=== PATIENT | female | born 1945 | race Caucasian/White ===

== ENCOUNTER 2019-12-20 08:25 | Inpatient (IN) | payer MEDICARE, SELFPAY ==
[2019-12-20] VITALS (11 sets, daily range): BP systolic 99–147; BP diastolic 58–89; PULSE 69–82; RESP 12–20; TEMP 36.3–36.8; O2SAT 93–97; BMI 41.2
--- NOTE | ~2019-12-20 | CT_ITS ---
EXAMINATION: CT abdomen pelvis w con DATE: 12/20/2019 09:21 INDICATION: Abdominal pain, nausea, vomiting, diarrhea TECHNIQUE: Computed tomography (CT) of the abdomen and pelvis was performed with 100 cc Omnipaque 350 intravenous contrast. Automated exposure control and iterative reconstruction technique were employe d. Exam dose: 1265.78 mGy-cm total exam DLP. COMPARISON: None. FINDINGS: There is cardiomegaly. Right atrial and right ventricular pacemaker leads are noted. No per icardial effusion. There is bilateral lower lobe atelectasis, primarily involving the right lower lobe. No pericardial or pleural effusion. There is a small sliding hiatal hernia. There is fluid filling the distal esophageal lumen., Presumab ly due to reflux. There is a very large [place] ventral abdominal wall hernia containing stomach, all of the small esvin wel and cecum, ascending colon, transverse colon, descending colon. There are jose of the ventral abdominal wall. Cholelithiasis. Borderline thickening of the gallbladder wall. No pericholecystic fluid or fat strand ing. No hepatic, splenic, pancreatic space-occupying mass lesion. No bile duct or pancreatic duct dilatati on. No splenomegaly. Approximately 1.4 cm right adrenal mass; statistically this is most likely an adrenal adenoma if ther e is no known primary malignancy. 7 mm probable left renal cyst. 9 mm probable left renal cyst. Bilateral renal atrophy and mild scarring. There is extensive calcification of the abdominal aorta, calcification at the origins of the renal ar teries, bilateral iliac and femoral artery calcifications. No abdominal aortic aneurysm. No intraperitoneal or retroperitoneal or pelvic mass lesion or adenopathy or ascites. Status post hysterectomy. The urinary bladder is relatively evacuated, unremarkable. There is a prominent amount fecal material in the rectosigmoid area in particular, rectosigmoid stool ball measuring up to approximately 6.6 x 7 cm. There are numerous diverticula of the colon; no CT evidence of diverticulitis. No bowel obstruction, bowel wall thickening, pneumatosis or intraperitoneal free air is detected. There is severe degenerative changes of the thoracic and lumbar spine, including diffuse idiopathic s keletal hyperostosis of the lower thoracic spine, severe degenerative disc disease at T12-L1, L1-L2, L2-3. There is mild retrolisthesis at L1-2 and L2-3 and minimal retrolisthesis at L3-4 where there is moderately prominent degenerative disc disease. There is very prominent degenerative change at the apophyseal joints particularly in the lower lumbar and lumbosacral area with associated grade 1 anterolisthesis at L4-5. There is moderately prominent degenerative disc disease at L4-5 and L5-S1. Diffuse osteopenia is noted otherwise. IMPRESSION: Cardiomegaly. Dual lead pacemaker. Bilateral lower lobe atelectasis, primarily on the right Small sliding hiatal hernia, probable reflux Large ventral abdominal wall hernia containing stomach, all of the small bowel, cecum, ascending, tra nsverse and descending colon Cholelithiasis 1.4 cm right adrenal mass, likely an adenoma if there is no known primary malignancy Left renal cysts Bilateral renal atrophy and mild scarring Status post hysterectomy Fecal material in the rectum and colon Diverticulosis of the colon; no CT evidence of diverticulitis Extensive degenerative changes of the thoracic and lumbar spine Reviewed, dictated and finalized at [facility]. Reviewed, dictated and finalized at location [facility].
--- NOTE | ~2019-12-20 | XR_ITS ---
XR chest 2V DATE: 12/20/2019 09:10 INDICATION: Hypoxemia. Abdominal pain and vomiting. TECHNIQUE: AP and lateral views COMPARISON: None FINDINGS: Heart size is within normal limits considering magnification associated with AP projection. There is a left-sided dual-lead pacemaker with leads overlying right atrium and right ventricle. The re is aortic unfolding. No hilar or mediastinal enlargement is evident. No pulmonary infiltrate or consolidation, pleural effusion or pulmonary vascular congestion or pneumo thorax. Degenerative spurring of the thoracic spine. Bilateral rotator cuff atrophy. Anterior abdominal wall jose. IMPRESSION: Left-sided dual-lead pacemaker device No active cardiopulmonary disease Reviewed, dictated and finalized at location [facility].
--- NOTE | ~2019-12-20 | XR_ITS ---
XR chest 1V portable DATE: 12/26/2019 21:05 INDICATION: Basically volar basketball internal jugular venous catheter placement TECHNIQUE: Portable AP chest on 12/26/2019 at D 58 hours COMPARISON: 12/21/2019 portable AP chest at 1442 hours FINDINGS: Left-sided dual-lead pacemaker device with leads overlying right atrium and right ventricle . Heart size. Prominent mitral annulus calcification. Aortic calcification. There are infiltrates and/atelectasis in both lower lung zones and minimal pleural effusions. Right internal jugular central venous catheter tip overlying right brachiocephalic vein/superior vena cava junction. No pneumothorax. Status post anterior C6-7 cervical spine fusion Bilateral chronic rotator cuff atrophy. Osteophytic change at the glenohumeral joints. Degenerative changes of the thoracic spine. IMPRESSION: Bilateral lower lung infiltrate and/atelectasis, increased since 12/21/2019 Reviewed, dictated and finalized at location [facility]. IMPRESSION: Bilateral lower lung infiltrate and/atelectasis, increased since 03/2020
--- NOTE | ~2019-12-20 | XR_ITS ---
EXAMINATION: XR abdomen NG/feed tube insert DATE: 12/22/2019 02:42 INDICATION: Nasogastric tube placement TECHNIQUE: A supine view of the abdomen and lower chest was obtained for evaluation of feeding tube placement. COMPARISON: CT dated 12/20/2019 FINDINGS: Nasogastric tube tip in proximal side port in the body of the stomach. Surgical clips in the left low er quadrant. Small amount of gas in the stomach and a couple loops of bowel in the lower abdomen. Jc cified nodule in the left lung and calcified left hilar lymph nodes consistent with old granulomatous disease. Cardiomegaly. Dense mitral annular calcification. Dual lead pacemaker seen with leads proje cting over the expected locations of the right atrium and right ventricle. IMPRESSION: 1. Nasogastric tube tip in the stomach. 2. Nonspecific nonobstructive bowel gas pattern. 3. Cardiomegaly. Reviewed, dictated and finalized at location [facility].
--- NOTE | ~2019-12-20 | US_ITS ---
EXAMINATION: US venous doppler [facility] DATE: 12/21/2019 09:14 INDICATION: Lower limb edema. TECHNIQUE: Grayscale ultrasound images without and with compression and Doppler ultrasound images of the bilateral lower extremity veins were obtained. COMPARISON: None. FINDINGS: The visualized portions of right common femoral vein, profunda (deep) femoral vein, femoral vein, pop liteal vein, peroneal veins, posterior tibial veins, and greater saphenous vein outflow are patent. The visualized portions of left common femoral vein, profunda femoral vein, femoral vein, popliteal v ein, peroneal veins, posterior tibial veins, and greater saphenous vein outflow are patent. IMPRESSION: 1. No deep venous thrombosis. Reviewed, dictated and finalized at location [facility].
--- NOTE | ~2019-12-20 | XR_ITS ---
EXAMINATION: XR chest port-a-cath/central DATE: 12/21/2019 14:44 INDICATION: Central line placement. TECHNIQUE: A single frontal view of the chest was obtained. COMPARISON: Chest 2 views 12/20/2019, CT abdomen and pelvis 12/20/2019 FINDINGS: There is mild atelectasis at right lung base. No pleural effusion or pneumothorax. Cardiome peña is noted. There is a left chest wall pacer with leads in the right atrium and right ventricle. T he nasogastric tube tip is beyond the inferior margin of the radiograph, but at least to the stomach. A right internal jugular central venous catheter is seen with tip in the superior vena cava. There a re changes of anterior fusion procedure in cervical spine. IMPRESSION: 1. Central line tip in superior vena cava. 2. Mild atelectasis at right lung base. 3. Cardiomegaly. Reviewed, dictated and finalized at location [facility].
--- NOTE | 2019-12-20 08:19 | ED.GENADULT ---
HPI - General Adult General Chief complaint: Nausea/Vomiting/Diarrhea Stated complaint: ABD PAIN/VOMITING Source: patient and EMS Mode of arrival: EMS Limitations: no limitations History of Present Illness HPI narrative: Patient is a 74-year-old female with a history of hypertension, hx of anemia taking Fe, pacemaker who presents for evaluation of abdominal pain, emesis. Patient states she has had 4-day history of intermittently cramping, then severe abdominal pain located throughout her abdomen. She denies back pain or chest pain. She reports numerous episodes dark emesis, she denies any blood present. No coffee-ground emesis. Patient denies any shortness of breath or cough. No fever or chills. Patient states her care is typically at [facility]. Patient states she had a normal bowel movement yesterday. She denies history of bowel obstruction. Per EMS, pt oxygen saturations were 86% on room air, pt not on home oxygen. She denies any respiratory symptoms or recent sick contacts. Pt does have home health care that helps patient as she is non ambulatory, however pt is not sure why she does not walk. Pt denies history of a CVA. Related Data Allergies Allergy/AdvReac Type Severity Reaction Status Date / Time No Known Allergies Allergy Verified 12/20/19 08:29 Review of Systems Review of Systems: Narrative: CONSTITUTIONAL: Denies fever, chills, or sweats. ENT: Denies rhinorrhea, congestion, sore throat, or otalgia. CARDIOVASCULAR: Denies chest pain, palpitations, or edema. RESPIRATORY: Denies cough or dyspnea. GASTROINTESTINAL: Reports abdominal pain, nausea and vomiting, denies diarrhea GENITOURINARY: Denies dysuria or hematuria. SKIN: Denies rash or itching. MUSCULOSKELETAL: Denies back pain, joint pain, or myalgia. NEUROLOGIC: Denies headache, numbness, or weakness. [facility] Past Medical History Medical History (Updated 12/20/19 @ 10:48 by Megan Singer MD) Anemia Hypertension Leg weakness, bilateral Pacemaker Surgical History Surgical History (Updated 12/20/19 @ 08:36 by Megan Singer MD) H/O hernia repair History of appendectomy Family History Family History (Updated 12/20/19 @ 13:29 by Melissa Freed RN) Father Congestive heart failure Sibling Diabetes mellitus Mother Breast cancer Social History Social History Smoking status: Never smoker Alcohol intake: never Substance use: never Spiritual care concerns: No Exam Narrative: Exam Narrative: GENERAL: Awake, alert, conversant HEAD: Normocephalic, atraumatic. EYES: PERRLA and EOMI. ENT: Nares clear, no rhinorrhea or epistaxis. Mucous membranes moist. NECK: Supple. CHEST: No respiratory distress, breathing even and non labored, oxygen saturation 88% on room air HEART: Regular rate, sinus rhythm ABDOMEN: Obese abdomen, non distended, tender throughout abdomen, mild tenderness, no rebound, no rigidity or guarding Rectal: Guaic positive stool, black stool EXTREMITIES: Normal range of motion. No edema. SKIN: Warm, dry, no rash. NEURO:No focal deficits. Alert and oriented x3 Course Vital Signs Vital signs: Vital Signs Temperature 36.8 C 12/20/19 08:23 Pulse Rate 80 12/20/19 08:23 Respiratory Rate 20 12/20/19 08:23 Blood Pressure 99/58 L 12/20/19 08:23 Pulse Oximetry 93 12/20/19 08:23 Temperature 36.3 C L 12/20/19 14:25 Pulse Rate 76 12/20/19 14:25 Respiratory Rate 14 12/20/19 14:25 Blood Pressure 147/87 H 12/20/19 14:25 Pulse Oximetry 97 12/20/19 14:25 Medical Decision Making MDM Narrative Medical decision making narrative: Patient presented for evaluation of nausea and vomiting. At the time of initial assessment, patient is hypoxemic, did require nasal cannula oxygenation with improvement in saturations back to 95%. Patient's ABG after oxygen does show increased oxygen, but she is also hypercarbic. Patient is not altered, no respiratory distress. Patient does appear dehydrat
--- NOTE | 2019-12-20 08:29 | ECG_ITS ---
Measurements Intervals [place] Rate: 66 P: MI: 0 QRS: -23 QRSD: 89 T: -72 QT: 406 QTc: 428 Interpretive Statements ATRIAL FIBRILLATION BORDERLINE R WAVE PROGRESSION, ANTERIOR LEADS BORDERLINE ST-T WAVE ABNORMALITY- DIFFUSE LEADS BASELINE ARTIFACT- I, II, III, AVR, AVL, AVF ABNORMAL ECG Electronically Signed On 12-20-2019 9:01:36 CDT by Matias Stiles D.O.
[2019-12-20] MEDS: SODIUM CHLORIDE 0.9% IV 1,000 ML 999 ML IV CONT (08:37)
[2019-12-20] MEDS: ONDANSETRON INJ 4 MG/2 ML VIAL IV PUSH ×3 (08:37→23:52)
[2019-12-20] MEDS: MORPHINE SULFATE 2 MG/ML INJ IV PUSH (08:37)
[2019-12-20 08:58] LABS: Hematocrit 48.8 % (37.0-47.0); Hemoglobin 16.1 g/dL (12.0-15.0); Mean Corpuscular Hemoglobin 27.8 pg (26-34); Mean Corpuscular Volume 84.3 fl (80-100); Mean Platelet Volume 10.7 fl (7.4-10.4); Platelet Count Result 308 k/mm3 (150-375); Red Blood Count 5.79 M/mm3 (4.2-5.4); Red Cell Distribution Width 16.3 % (11.5-14.5); White Blood Count 23.4 K/mm3 (4.5-10.0)
[2019-12-20 09:05] LABS: Add Urine Microscopic? YES; Appearance Urine Clear (Clear); Bacteria Urine Trace /hpf; Bilirubin Urine Negative (Negative); Blood Urine 1+ (Negative); Color Urine Yellow (Yellow); Glucose Urine UA Negative (Negative); Hyaline Casts Urine 50+ /lpf; Ketones Urine Negative (Negative); Leukocyte Esterase Ur Negative LEU/UL (Negative); Mucus Urine Heavy /lpf; Nitrate Urine Negative (Negative); Protein Urine 3+ mg/dL (Negative); Specific Grav Ur 1.025 (1.001-1.035)
[2019-12-20 09:10] LABS: Alanine Aminotransferase 19 U/L (4-35); Albumin Level 3.9 g/dL (3.5-5.1); Alkaline Phosphatase 73 U/L (38-126); Anion Gap 9.99999 mmol/L (8-16); Aspartate Amino Transferase 37 U/L (14-36); Bilirubin,Total 0.9 mg/dL (0.2-1.3); Blood Urea Nitrogen 47 mg/dL (7-17); Calcium 9.3 mg/dL (8.4-10.2); Carbon Dioxide > 40 mmol/L (22-30); Chloride 91 mmol/L (98-107); Estimated CRCL calculation 49 ml/min; Estimated Glomerular Filt Rate 55; Glucose 174 mg/dL (65-105); Lipase 203 U/L (23-300); Potassium 3.6 mmol/L (3.4-5.0); Sodium 141 mmol/L (137-145)
[2019-12-20 09:15] LABS: Estimated CRCL calculation 41 ml/min; Estimated Glomerular Filt Rate 44
[2019-12-20 09:28] LABS: Lymphocytes Absolute Manual 2.57 K/mm3 (1.1-4.5); Lymphocytes Percent Manual 11 % (18-44); Monocytes Absolute Manual 0.93 K/mm3 (0.1-0.90); Monocytes Percent Manual 4 % (3-9); Neutrophils Percent Manual 85 % (46-73); Total Cells Counted 100
[2019-12-20 09:29] LABS: Base Excess ABG 15.6 mEq/l (+/-2.0); Carboxyhemoglobin 1.2 % THb (0-2.0); Fractional Inspired Oxygen 24 %; HCO3 ABG 42.1 mEq/l (22.0-26.0); Methemoglobin ABG 0.1 %THb (0-1.5); Oxygen Content ABG 18.8 %vol (16.0-22.0); Oxygen Saturation ABG 98.1 % (95.0-100.0); Oxyhemoglobin 96.3 % THb (90.0-100.0); PCO2 ABG 59.1 mmHg (35.0-45.0); PO2 ABG 109.3 mmHg (80.0-100.0); PO2 FiO2 Ratio Arterial Blood 4.55 %; Reduced Hemoglobin 2.4 %THb (0-5.0); Total Hemoglobin 13.8 g/dL (12.0-18.0); pH ABG 7.471 (7.350-7.450)
[2019-12-20 09:29] LABS: Platelet Estimate Adequate (Adequate)
[2019-12-20 09:32] LABS: Device NASAL CANNULA; Modified Allen's Test Pass; Site Drawn RIGHT RADIAL
--- NOTE | 2019-12-20 10:07 | PC.NURSE ---
Daughter of patient's phone number: [phone]
--- NOTE | 2019-12-20 10:59 | PC.NURSE ---
Phelbotomy called for patient due to difficult blood draw.
--- NOTE | 2019-12-20 11:30 | PC.NURSE ---
Phlebotomy attempted multiple times without success other than one set of blood cultures. software development coordinator and EDP made aware.
[2019-12-20 11:51] LABS: INR 1.1; Prothrombin Time 13.7 Seconds (11.1-14.7)
[2019-12-20 11:52] LABS: Partial Thromboplastin Time 28.6 SECONDS (22.3-36.8)
[2019-12-20 11:55] LABS: D Dimer 0.99 ug/mL (<0.48)
[2019-12-20 12:20] LABS: Lactic Acid Reflex 1.9 mmol/L (0.7-2.1)
--- NOTE | 2019-12-20 12:55 | ADMGEN ---
This patient, Ashley Croft, was admitted to Medical Room 341-01. Patient/family oriented to hospital policies and general routines including ID bracelet, bed and alarms, visiting hours, pain management, procedures, bathroom and other care routines, personal items, smoking policy, room service/diet, and visiting hours. Valuables list has been completed. Information on how to activate the Rapid Response Team has been discussed. Patient/Family are encouraged to report perceived risks to care and to ask questions if they do not understand what they are told or what they should do.
[2019-12-20] MEDS: SODIUM CHLORIDE 0.9% IV 1,000 ML 125 ML IV CONT ×2 (13:10→22:09)
[2019-12-20 13:59] LABS: Troponin I 0.065 ng/mL (0.000-0.034)
[2019-12-20 16:01] LABS: Gastric Negative Control Negative; Gastric Positive Control Positive; Occult Blood Gastric Fluid Positive; pH Gastric Fluid 4 (1-8)
--- NOTE | 2019-12-20 16:15 | PM.IMHP ---
H&P: HPI History of Present Illness Date/Time: 12/20/19 16:15 Chief complaint: Vomiting and epigastric pain. Narrative: Ashley Croft is a chronically debilitated, morbidly obese 74-year-old female who presented to the emergency department earlier today via EMS from home for evaluation of epigastric pain and vomiting. She gets most of her care at [facility], but recently moved to the area and thus she was brought here for evaluation. She is not a very good historian, but from what I can gather she does have a history of breast cancer, chronic anemia, hypertension, and she also has a permanent pacemaker in place. She suffers from severe peripheral neuropathy and it sounds like she was hospitalized at [facility] in May 2019 with foot wounds. She [facility] to a [facility] for [facility], and moved over to [place] to lived with her daughter. She is now living in her own apartment and has home health come in for about 11 hours a day. She is nonambulatory and transfers with the use of a Carlos. In any regard, on Friday evening she began having epigastric discomfort and nausea. Initially she thought perhaps she had food poisoning however her daughter and son-in-law did not have similar symptoms despite eating the same food. She continues to have epigastric discomfort that she has a difficult time describing, and has been experiencing belching, and also reports numerous episodes of dark emesis, occasionally described as coffee-ground emesis per her nurse here at the hospital. She has a difficult time describing her epigastric discomfort, but she states that it has been constant since the outset. She tells me that she has never had GERD, and does not describe any significant burning in area. She is on iron and thus her stools are always dark. She suffers from constipation, and has not had a bowel movement for at least a day or so. She has a very large ventral hernia that has been present for years, and there is no plans to repair that. She denies ever having pain in the region of the hernia. No history of gallbladder disease and for when questioned, it does not sound as though she has had any right upper quadrant discomfort related to food. Review of Systems Review of Systems: Narrative: Twelve systems were reviewed with pertinent positives and negatives as per HPI. She denies fever, chills, and sweats. She has felt a bit lightheaded today. No recent cold or flu symptoms. She denies cough and shortness of breath. She has no history of COPD. She has never been on oxygen at home. She denies sleep apnea and further denies orthopnea and PND. She has chronic, mild lower extremity edema which is unchanged. She denies chest pain and pleuritic pain. She has peripheral neuropathy in her feet, but denies having history of diabetes or spinal stenosis. [facility] Past Medical History Medical History (Updated 12/20/19 @ 21:39 by Josefina Kerr PA-C) Cancer of right breast (~2017) Status post lumpectomy, chemotherapy, and radiation. Hypertension Iron deficiency anemia alf current use of anticoagulant Patient believe she has a history of blood clot, she is uncertain if she has a history of atrial fibrillation. Morbid obesity Surgical History Surgical History (Updated 12/20/19 @ 17:18 by Leeroy Guzmán MD) History of fusion of cervical spine C5-C6 fusion after fracture. History of hernia repair History of lumpectomy of right breast For breast cancer. History of permanent cardiac pacemaker placement History of total hysterectomy with bilateral salpingo-oophorectomy (BSO) Status post debridement Left heel wound debridement. Family History Family History Father Congestive heart failure Heart disease Sibling Diabetes mellitus Mother Breast cancer Sibling Heart disease Social History Social History Social History: The patient is origin
[2019-12-20 16:31] LABS: Hematocrit 46.4 % (37.0-47.0)
[2019-12-20 16:56] LABS: Troponin I 0.074 ng/mL (0.000-0.034)
--- NOTE | 2019-12-20 17:14 | WPDGICN ---
Assessment and Plan Assessment and plan (1) Hematemesis: Code(s): K92.0 - Hematemesis Status: Acute Assessment and Plan: Patient presented with upper GI bleeding. Coffee-ground emesis. Plan is to evaluate more thoroughly with an EGD. We will maintain her on Protonix in the antrum. Continue monitor hemoglobin by follow-up CBC in the morning. (2) History of permanent cardiac pacemaker placement: Code(s): Z95.0 - Presence of cardiac pacemaker Status: Acute (3) Morbid obesity: Code(s): E66.01 - Morbid (severe) obesity due to excess calories Status: Acute (4) Constipation: Code(s): K59.00 - Constipation, unspecified Status: Acute Assessment and Plan: Patient appears to have constipation based on results of CT scan with excess stool in the rectal vault. We will maintain on laxatives as needed during hospital stay. GI Consult Note Consult date/time: 12/20/19 17:14 HPI: Ashley Croft is a 74 year old female seen in evaluation at the request of the hospitalist service. Patient presented to the emergency room with complaints of a 3 to four-day history of nausea vomiting. Coffee-ground emesis is described. Fact in patient was noted have dried blood about her mouth. She apparently has had vague abdominal discomfort during this interval of time. She denies constipation however CT scan reveals large amount of stool in the rectal wall. Patient denies any blood in her bowel habits. She denies any prior history of ulcer disease. Past medical history is significant for obesity. She has a history of a hysterectomy and ventral hernia which is not been repaired for many years. Review of Systems Review of Systems: All systems reviewed & are unremarkable except as noted in HPI and below PMFSH Past Medical History Medical History Cancer of right breast Status post lumpectomy, chemotherapy, and radiation. Hypertension Iron deficiency anemia Morbid obesity Surgical History Surgical History History of fusion of cervical spine C5-C6 fusion after fracture. History of hernia repair History of lumpectomy of right breast For breast cancer. History of permanent cardiac pacemaker placement History of total hysterectomy with bilateral salpingo-oophorectomy (BSO) Status post debridement Left heel wound debridement. Family History Family History Father Congestive heart failure Heart disease Sibling Diabetes mellitus Mother Breast cancer Sibling Heart disease Social History Social History Social History: The patient is originally from [place], but moved to [place] in spring 2019 to live with her daughter however she is now living in her own apartment. She is nonambulatory and transfers with a Carlos. 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 She smoked upwards of 2 packs of cigarettes a day and quit in 2009. She denies alcohol and illicit substance use. Her only child, daughter Zoie Peguero, is her surrogate decision maker and she wishes to be a full code. Spiritual care concerns: No Meds Home Medications and Allergies Allergies Allergy/AdvReac Type Severity Reaction Status Date / Time No Known Allergies Allergy Verified 12/20/19 08:29 Vital Signs Vital Signs - 24 hr 12/20/19 08:23 12/20/19 10:16 12/20/19 10:59 Temperature 98.2 F Pulse Rate 80 69 78 Respiratory Rate 20 12 14 Blood Pressure 99/58 L 108/89 121/74 Pulse Oximetry 93 96 94 12/20/19 12:30 12/20/19 12:34 12/20/19 13:12 Temperature Pulse Rate 76 82 Respiratory Rate 15 13 Blood Pressure 99/88 L 99/88 L Pulse Oximetry 95 96 96 12/20/19 14:25 12/20/19 16:00 Temperature 97.4 F L Pulse Rate 76 72 Respiratory Rate 14 Blood Pressure 147
[2019-12-20 19:28] LABS: Hemoglobin 14.5 g/dL (12.0-15.0)
[2019-12-20] MEDS: PANTOPRAZOLE SODIUM IV 40 MG VIAL IV PUSH (19:53)
[2019-12-20 19:59] LABS: Troponin I 0.082 ng/mL (0.000-0.034)
[2019-12-21] VITALS (23 sets, daily range): BP systolic 91–151; BP diastolic 41–91; PULSE 67–83; RESP 15–22; TEMP 35.7–36.8; O2SAT 91–99
[2019-12-21] MEDS: ONDANSETRON INJ 4 MG/2 ML VIAL IV PUSH (05:22)
[2019-12-21 06:34] LABS: Basophils Percent Auto 0.1 % (0.2-1.2); Hematocrit 43.1 % (37.0-47.0); Immature Granulocyte Absolute 0.11 K/mm3 (0.00-0.031); Immature Granulocyte Percent A 0.5 % (0-0.5); Lymphocytes Percent Auto 9.6 % (18.3-44.2); Mean Corpuscular HGB Conc 32.5 g/dl (32-36); Mean Corpuscular Hemoglobin 28.5 pg (26-34); Mean Corpuscular Volume 87.8 fl (80-100); Mean Platelet Volume 10.9 fl (7.4-10.4); Monocytes Absolute Auto 1.6 K/mm3 (0.1-0.6); Monocytes Percent Auto 7.4 % (2.6-8.5); Neutrophils Percent Auto 82.4 % (45.5-73.1); Platelet Count Result 249 k/mm3 (150-375); Red Blood Count 4.91 M/mm3 (4.2-5.4); Red Cell Distribution Width 16.4 % (11.5-14.5); White Blood Count 21.9 K/mm3 (4.5-10.0)
[2019-12-21] MEDS: SODIUM CHLORIDE 0.9% IV 1,000 ML 125 ML IV CONT ×2 (06:36→18:49)
[2019-12-21 07:13] LABS: Alanine Aminotransferase 13 U/L (4-35); Albumin Level 3.6 g/dL (3.5-5.1); Alkaline Phosphatase 72 U/L (38-126); Anion Gap 12.99999 mmol/L (8-16); Aspartate Amino Transferase 29 U/L (14-36); Bilirubin,Total 0.7 mg/dL (0.2-1.3); Blood Urea Nitrogen 63 mg/dL (7-17); Calcium 8.5 mg/dL (8.4-10.2); Carbon Dioxide > 40 mmol/L (22-30); Chloride 89 mmol/L (98-107); Estimated CRCL calculation 28 ml/min; Estimated Glomerular Filt Rate 26; Glucose 140 mg/dL (65-105); Magnesium 2.3 mg/dL (1.6-2.3); Potassium 3.2 mmol/L (3.4-5.0); Sodium 142 mmol/L (137-145); Troponin I 0.146 ng/mL (0.000-0.034)
--- NOTE | 2019-12-21 12:30 | PC.NURSE ---
Pt sent down to GI. Report given to INNA Lino. Informed them of telemetry, and elevated trops.
[2019-12-21] MEDS: LACTATED RINGERS 1,000 ML 150 ML IV CONT (12:55)
--- NOTE | 2019-12-21 13:12 | WPDANESEPPF ---
Anes - Initial Pre Proc Eval Procedure: Operation Date: 12/21/19 13:30 Proposed Procedures p Esophagogastroduodenoscopy - Leeroy Guzmán MD Date/Time: 12/21/19 13:12 Surgeon: Kieran Jenkins MD Pre Op Diagnosis: Vomiting and epigastric pain. Patient Data Age: 74 Gender: F Height: 5 ft 3 in Weight: 105.6 kg Last Vital Signs Temp 97.2 F L 12/21/19 12:54 Pulse 76 12/21/19 12:54 Resp 20 12/21/19 12:54 BP 151/81 H 12/21/19 12:54 Pulse Ox 96 12/21/19 12:54 Allergies Allergy/AdvReac Type Severity Reaction Status Date / Time No Known Allergies Allergy Verified 12/20/19 08:29 Home Medications Medication Instructions Recorded Confirmed Type apixaban 5 mg PO BID 12/20/19 12/20/19 History aspirin 81 mg PO DAILY 12/20/19 12/20/19 History calcitriol 0.25 mcg PO DAILY 12/20/19 12/20/19 History clotrimazole 1 applic TOPICAL BID 12/20/19 12/20/19 History diltiazem HCl [Cardizem CD] 180 mg PO DAILY 12/20/19 12/20/19 History docusate sodium [Colace] 100 mg PO DAILY 12/20/19 12/20/19 History fluticasone propionate 2 spray INTRANASAL DAILY 12/20/19 12/20/19 History furosemide 40 mg PO DAILY 12/20/19 12/20/19 History gabapentin 300 mg PO HS 12/20/19 12/20/19 History hydrocodone-acetaminophen 1 tablet PO Q6H PRN 12/20/19 12/20/19 History hydroxyzine pamoate 50 mg PO HS 12/20/19 12/20/19 History letrozole 2.5 mg PO DAILY 12/20/19 12/20/19 History melatonin 3 mg PO HS PRN 12/20/19 12/20/19 History metoprolol tartrate 12.5 mg PO BID 12/20/19 12/20/19 History mupirocin 1 applic TOPICAL BID 12/20/19 12/20/19 History potassium chloride 20 meq PO DAILY 12/20/19 12/20/19 History pregabalin 100 mg PO BID 12/20/19 12/20/19 History Laboratory Tests 12/20/19 12/20/19 12/20/19 13:14 14:44 16:24 WBC RBC Hgb 15.0 g/dL g/dL (12.0-15.0) Hct 46.4 % % (37.0-47.0) MCV MCH MCHC RDW Plt Count MPV Immature Gran % (Auto) Neut % (Auto) Lymph % (Auto) [place] % (Auto) Eos % (Auto) Baso % (Auto) Lymph # (Auto) [place] # (Auto) Eos # (Auto) Baso # (Auto) Abs Immat Gran (auto) Absolute Neuts (auto) Absolute Nucleated RBC Nucleated RBC % Sodium Potassium Chloride Carbon Dioxide Anion Gap BUN Creatinine Estim Creat Clear Calc Estimated GFR Glucose Calcium Magnesium Total Bilirubin AST ALT Alkaline Phosphatase Troponin I 0.065 ng/mL H* ng/mL (0.000-0.034) Total Protein Albumin Gastric Fluid pH 4 (1-8) Gastric Occult Blood Positive H Blood Type Antibody Screen 12/20/19 12/20/19 12/20/19 16:24 19:19 19:19 WBC RBC Hgb 14.5 g/dL g/dL (12.0-15.0) Hct 45.0 % % (37.0-47.0) MCV MCH MCHC RDW Plt Count MPV Immature Gran % (Auto) Neut % (Auto) Lymph % (Auto) [place] % (Auto) Eos % (Auto) Baso % (Auto) Lymph # (Auto) [place] # (Auto) Eos # (Auto) Baso # (Auto) Abs Immat Gran (auto) Absolute Neuts (auto) Absolute Nucleated RBC Nucleated RBC % Sodium Potassium Chloride Carbon Dioxide Anion Gap BUN Creatinine Estim Creat Clear Calc Estimated GFR Glucose Calcium
--- NOTE | 2019-12-21 14:42 | P.PCNANE_ITS ---
Anes - Cent Venous Cath Note Consent: The patient understand(s) and acknowledge(s) the need to proceed with central venous catheter insertion as an important element of the patient's clinical management given emergent patient conditions, temporal constraints may have precluded informed consent. Time-Out: A pre-procedural Time-Out was completed immediately before starting the procedure and confirmed: Patient Identification, Site, Procedure, Patient Position and the Availability of Requisite Equipment. Procedure Note Clinical Indications: no iv access gi bleeding Patient position: trendelenburg Central venous catheter insertion site: right internal jugular CVC method of insertion: ultrasound-guided Hand hygiene/Aseptic technique: Hand hygiene procedures were performed. Aseptic technique was maintained throughout the procedure. Sterile barrier precautions: Maximal sterile barrier precautions, including use of a cap, mask, sterile gown, sterile gloves and a sterile full body drape. Site prep: chlorhexidine Skin anesthesia: 1% lidocaine Citizen Of [place]: 7 Lumen: 3 Length (cm): 15 cm Depth of insertion (cm): 14 Closure/Dressing: suture, biopatch and tegaderm Complications: None immediately noted/suspected. Chest X Ray: Ordered/review to follow.reviewed no ptx in superior vena cava pacemaker noted to be in place. staff attempting to find out pacemaker type to have interrogated since central wire placed and removed. Procedure comments: prepped draped sterile. ultrasound used IJ small collapses with inspiration. multiple attempts accessed wire passed third time. sutured in place
--- NOTE | 2019-12-21 15:46 | PC.NURSE ---
Spoke with housecalls nurse regarding concerns with patient down in GI lab.
--- NOTE | 2019-12-21 15:53 | SUR.PHASEII ---
[id number]: IV INFILTRATED. PT VOMITING 700ML THIN BLACK FOUL OUTPUT. NG INSERTED TO LEFT NARE WITHOUT COMPLICATION. IMMEDIATE RETURN OF 2200ML. IV ACCESS ATTEMPTED SEVERAL TIMES BY KECIA PHAN RN, DR BURRELL, QUIANA CHRISTIE WITH AND WITHOUT ULTRASOUND WITHOUT SUCCESS. DR BURRELL PLACED RIGHT IJ. XRAY CONFIRMED PLACEMENT. 1442: PT TAKEN INTO EGD PROCEDURE. NG REMAINS IN PLACE. DAUGHTER UPDATED BY INNA PHAN. 1511: PT INTO RECOVERY. ASKED DR EWING IF REPEAT CXR IS NEEDED FOR POSSIBLE NG MANIPULATION. NO NEW ORDERS RECEIVED. DR CONNELL GAVE NO NEW ORDERS. 1550: REPORT CALLED TO INNA YAN. PT REMAINS SLIGHTY LETHARGIC, RESPONDS OK. NG TO LIS PER ORDERS. MEDICAL CLAIMS SPECIALIST AT BEDSIDE. PT TO BE TRANSFERRED TO 232 IMU. 1620: REPORT CALLED TO [facility] RODRIGUEZ IMU. TEMP 97.9. PT TRANSFERRED PER STRETCHER TO 232.
--- NOTE | 2019-12-21 16:05 | P.PNIM_ITS ---
Progress Note: A&P Assessment and Plan (1) Hematemesis: Code(s): K92.0 - Hematemesis Status: Acute Assessment and Plan: * severe hematemesis * central line placed * continue iv fluids iv protonix bid * hold all BP meds, hold all oral meds tonite (2) Constipation: Code(s): K59.00 - Constipation, unspecified Status: Resolved Assessment and Plan: * (3) Dehydration: Code(s): E86.0 - Dehydration Status: Acute Assessment and Plan: * continue fluids (4) Elevated troponin: Code(s): R79.89 - Other specified abnormal findings of blood chemistry Status: Acute Assessment and Plan: * trop in am elevatec trop in light of GI bleed, rpt trop stephanie then decide on cardiology consult * Monitor on telemetry overnight. (5) Leukocytosis: Qualifiers: Leukocytosis type: other Qualified Code(s): D72.828 - Other elevated white blood cell count Code(s): D72.829 - Elevated white blood cell count, unspecified Status: Acute Assessment and Plan: * ? breast cancer and wcc runs high ? stress reaction ? sepsis ordered lactate and fluids and BC . (6) Respiratory insufficiency: Code(s): R06.89 - Other abnormalities of breathing Status: Resolved Assessment and Plan: * Pulmonary embolism not likely as she has been on Eliquis. 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 * Eliquis currently on hold given hematemesis. (8) Hypertension: Code(s): I10 - Essential (primary) hypertension Status: Acute Assessment and Plan: * Blood pressures were reviewed and initially they were soft, but have improved with IV fluids. * . Additional Plan Records have been requested from [facility] so we may get a more complete medical history. Subjective Date/time seen: 12/21/19 16:05 Interval history: Lang is a chronically debilitated, morbidly obese 74-year-old female who presented to the emergency department earlier today via EMS from home for evaluation of epigastric pain and vomiting. Pt having hematemesis went down for EGD found to have gastric ulcer. Pt had central line placed for hypotension pt is going to IMU. Pts WCC is high ? sepsis troponin slightly elevated and potassium slightly low. Creat has gone up secondary to recent hematemesis. Pt does have a pacemaker so i will consult cardiology and continue to trend troponins. I will order lactic level ? sepsis Pt does have a history of breast cancer Wcc may run high need old notes to check Pt is still actively bleeding gastric ulcer found on EGD continue iv fluids iv protonix watch hb Review of Systems Review of Systems: ROS unobtainable: Yes unobtainable due to medical condition (tired and weak ) Exam Narrative: Exam Narrative: NG tube in situ dark blood copious in tub
--- NOTE | 2019-12-21 16:05 | PM.IMPN ---
Progress Note: A&P Assessment and Plan (1) Hematemesis: Code(s): K92.0 - Hematemesis Status: Acute Assessment and Plan: severe hematemesis central line placed continue iv fluids iv protonix bid hold all BP meds, hold all oral meds tonite (2) Constipation: Code(s): K59.00 - Constipation, unspecified Status: Resolved Assessment and Plan: (3) Dehydration: Code(s): E86.0 - Dehydration Status: Acute Assessment and Plan: continue fluids (4) Elevated troponin: Code(s): R79.89 - Other specified abnormal findings of blood chemistry Status: Acute Assessment and Plan: trop in am elevatec trop in light of GI bleed, rpt trop stephanie then decide on cardiology consult Monitor on telemetry overnight. (5) Leukocytosis: Qualifiers: Leukocytosis type: other Qualified Code(s): D72.828 - Other elevated white blood cell count Code(s): D72.829 - Elevated white blood cell count, unspecified Status: Acute Assessment and Plan: ? breast cancer and wcc runs high ? stress reaction ? sepsis ordered lactate and fluids and BC . (6) Respiratory insufficiency: Code(s): R06.89 - Other abnormalities of breathing Status: Resolved Assessment and Plan: Pulmonary embolism not likely as she has been on Eliquis. 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 Eliquis currently on hold given hematemesis. (8) Hypertension: Code(s): I10 - Essential (primary) hypertension Status: Acute Assessment and Plan: Blood pressures were reviewed and initially they were soft, but have improved with IV fluids. . Additional Plan Records have been requested from [facility] so we may get a more complete medical history. Subjective Date/time seen: 12/21/19 16:05 Interval history: Lang is a chronically debilitated, morbidly obese 74-year-old female who presented to the emergency department earlier today via EMS from home for evaluation of epigastric pain and vomiting. Pt having hematemesis went down for EGD found to have gastric ulcer. Pt had central line placed for hypotension pt is going to IMU. Pts WCC is high ? sepsis troponin slightly elevated and potassium slightly low. Creat has gone up secondary to recent hematemesis. Pt does have a pacemaker so i will consult cardiology and continue to trend troponins. I will order lactic level ? sepsis Pt does have a history of breast cancer Wcc may run high need old notes to check Pt is still actively bleeding gastric ulcer found on EGD continue iv fluids iv protonix watch hb Review of Systems Review of Systems: ROS unobtainable: Yes unobtainable due to medical condition (tired and weak ) Exam Narrative: Exam Narrative: NG tube in situ dark blood copious in tub Pt very tired and pale Large lady Objective Data Vital Signs Vital Signs: Vital Signs - 24 hr 12/20/19 20:00 12/20/19 22:00 12/20/19 22:38 Temperature 36.3 C L Pulse Rate 81 75 79 Respiratory Rate 14 16 Blood Pressure 136/75 Pulse Oximetry 97 96 12/21/19 00:00 12/21/19 04:00 12/21/19 05:19 Temperature 36.8 C Pulse Rate 72 73 72 Respiratory Rate 15 Blood Pressure 136/71 Pulse Oximetry 91 12/21/19 08:00 12/21/19 12:00 12/21/19 12:54 Temperature 36.2 C
--- NOTE | 2019-12-21 16:06 | SUR.PHASEII ---
SPOKE WITH DR. BROCK REGARDING THE REQUEST FOR THE PATIENT'S PACEMAKER TO BE INTERROGATED. HE REQUESTED THE PACEMAKER BE INTERROGATED IN THE NEXT 24 HOURS. [employer] CALLED SPOKE WITH BRAYAN AT 1603 TO REQUEST A PERSONNEL MANAGER TO COME OUT TO INTERROGATE THE PACEMAKER. BRAYAN SAID SHE WOULD PAGE THE PERSONNEL MANAGER TO HAVE THEM COME OUT. VAN KEITH
--- NOTE | 2019-12-21 17:01 | PC.NURSE ---
Report given to IMU nurse. Patient sent to room 232.
[2019-12-21 17:50] LABS: Lactic Acid 1.3 mmol/L (0.7-2.1)
[2019-12-21] MEDS: MICONAZOLE NITRATE 2% CREAM 30 GM TUBE 1 APPLIC TOPICAL (19:28)
[2019-12-21] MEDS: MUPIROCIN 2% OINT 22 GM TUBE 1 APPLIC TOPICAL (19:28)
[2019-12-21 19:33] LABS: Hematocrit 33.6 % (37.0-47.0); Hemoglobin 10.8 g/dL (12.0-15.0)
[2019-12-21 19:46] LABS: Anion Gap 10.99999 mmol/L (8-16); Blood Urea Nitrogen 64 mg/dL (7-17); Calcium 7.9 mg/dL (8.4-10.2); Carbon Dioxide > 40 mmol/L (22-30); Chloride 87 mmol/L (98-107); Estimated CRCL calculation 26 ml/min; Estimated Glomerular Filt Rate 23; Glucose 124 mg/dL (65-105); Potassium 2.9 mmol/L (3.4-5.0); Sodium 138 mmol/L (137-145)
[2019-12-21 20:00] LABS: Troponin I 0.245 ng/mL (0.000-0.034)
[2019-12-21] MEDS: SODIUM CHLORIDE 0.9% IV 500 ML IV CONT (20:05)
--- NOTE | 2019-12-21 20:45 | PC.NURSE ---
2120- received pt from endoscopy dept- pt had ECG procedure- pt previously from 3rd floor- report received and belongings in room; received- pt nto room 232- awakens to name- responds appropriately but drowsy- Left NG to LIS- gastric secretions black; O2 on 2l/nc- BP 150/69- monitor atrial fib 70's;
[2019-12-21] MEDS: PANTOPRAZOLE SODIUM IV 40 MG VIAL IV PUSH (21:13)
[2019-12-22] VITALS (17 sets, daily range): BP systolic 102–145; BP diastolic 43–62; PULSE 62–73; RESP 16–20; TEMP 36–36.6; O2SAT 96–100
--- NOTE | 2019-12-22 | ECHO_ITS ---
Patient Info Name: Ashley Croft Age: 74 years : 1945 Gender: Female Ht: 63 in Wt: 232 lbs BSA: 2.22 m2 HR: 72 bpm BP: 136 / 71 mmHg Heart Rhythm: Atrial Flutter Technical Quality: Good Exam Date: 12/22/2019 2:35 PM Exam Location: [facility] Pulmonary Exam Room: 232 Patient Status: Inpatient Admit Date: 12/21/2019 Staff Ordering Physician: Josefina Kerr PA-C Candy Puller: Leta Sheridan RDCS Attending Provider: Kieran Jenkins MD Referring Physician: Usha NARAYANAN; Exam Type: CA echo doppler color flow Study Info Indications - cardiomegaly elevated troponons Complete two-dimensional, color flow and Doppler transthoracic echocardiogram is performed. Summary 1. Left ventricular chamber dimension is normal. 2. Left ventricular systolic function is hyperdynamic, estimated at >70%. 3. There is mildly increased left ventricular wall thickness. 4. The left ventricular diastolic function is indeterminate. 5. Left atrial chamber dimension is severely enlarged. 6. Right atrial chamber dimension is mildly enlarged. 7. There is mild aortic valve calcification. 8. There is mild aortic valve regurgitation. 9. The mitral valve has calcified annulus and restricted posterior leaflet motion. 10. There is mild mitral valve stenosis. 11. There is moderate mitral valve regurgitation. 12. Severe pulmonary hypertension, estimated pulmonary arterial systolic pressure is 62 mmHg. 13. There is mild tricuspid valve regurgitation. Left Ventricle Left ventricular chamber dimension is normal. Left ventricular systolic function is hyperdynamic, estimated at >70%. There is mildly increased left ventricular wall thickness. The left ventricular diastolic function is indeterminate. Right Ventricle Right ventricular chamber dimension is normal. Right ventricular systolic function is normal. Left Atria Left atrial chamber dimension is severely enlarged. Right Atria Right atrial chamber dimension is mildly enlarged. Atrial Septum Patent foramen ovale visualized by color flow imaging. Aortic Valve The aortic valve is trileaflet. There is moderate aortic valve sclerosis. There is no aortic valve stenosis. There is mild aortic valve regurgitation. There is mild aortic valve calcification. Pulmonic Valve The pulmonic valve is normal. There is no pulmonic valve stenosis. There is trace pulmonic regurgitation. Mitral Valve The mitral valve has calcified annulus and restricted posterior leaflet motion. There is mild mitral valve stenosis. There is moderate mitral valve regurgitation. Tricuspid Valve The tricuspid valve leaflets are normal. There is no significant tricuspid valve stenosis. There is mild tricuspid valve regurgitation. Severe pulmonary hypertension, estimated pulmonary arterial systolic pressure is 62 mmHg. Pericardium/Pleural The pericardium appears normal. There is no pericardial effusion. Inferior Vena Cava Dilated inferior vena cava with <50% collapse upon inspiration consistent with elevated right atrial pressure, 15 mmHg. Aorta The aortic root size at the sinus of Valsalva is normal. The prox ascending aorta size is normal. Left Ventricular Outflow Tract Name Value Normal LVOT 2D
[2019-12-22 00:05] LABS: Hematocrit 31.1 % (37.0-47.0); Hemoglobin 9.9 g/dL (12.0-15.0)
[2019-12-22] MEDS: SODIUM CHLORIDE 0.9% IV 1,000 ML 100 ML IV CONT ×2 (04:54→15:00)
[2019-12-22 06:23] LABS: Hemoglobin 9.6 g/dL (12.0-15.0); Mean Corpuscular Hemoglobin 28.7 pg (26-34); Mean Corpuscular Volume 89.8 fl (80-100); Mean Platelet Volume 10.4 fl (7.4-10.4); Platelet Count Result 177 k/mm3 (150-375); Red Blood Count 3.34 M/mm3 (4.2-5.4); Red Cell Distribution Width 16.3 % (11.5-14.5); White Blood Count 11.3 K/mm3 (4.5-10.0)
[2019-12-22 06:40] LABS: Anion Gap 7.99999 mmol/L (8-16); Blood Urea Nitrogen 60 mg/dL (7-17); Calcium 7.7 mg/dL (8.4-10.2); Carbon Dioxide > 40 mmol/L (22-30); Chloride 92 mmol/L (98-107); Estimated CRCL calculation 28 ml/min; Estimated Glomerular Filt Rate 26; Glucose 112 mg/dL (65-105); Sodium 140 mmol/L (137-145)
--- NOTE | 2019-12-22 08:22 | WPDANESPN ---
Anes - Prog Note Post-Op Date/Time: 12/22/19 08:22 Cardiovascular status: normal Respiratory status: normal Airway patency: baseline Mental status: other (mental status changes from baseline according to RN. Sitter at bedside. ) Post-Op hydration status: normal Vital Signs: Last Vital Signs Temp 36.0 C L 12/22/19 04:09 Pulse 65 12/22/19 06:00 Resp 18 12/22/19 04:09 BP 145/62 H 12/22/19 04:09 Pulse Ox 98 12/22/19 04:09 Pain Score (VAS): 0/10. Patient resting in bed at time of assessment, sitter at bedside. Spoke with RN at time of assessment, no additional concerns. I/O: Intake & Output 12/21/19 12/22/19 12/22/19 23:59 07:59 15:59 Intake Total 550 1621 Output Total 500 650 Balance 50 971 Laboratory Tests 12/22/19 06:09 12/22/19 06:09 12/21/19 12/21/19 12/21/19 17:34 19:24 19:24 WBC RBC Hgb 10.8 L D Hct 33.6 L MCV MCH MCHC RDW Plt Count MPV Sodium Potassium Chloride Carbon Dioxide Anion Gap BUN Creatinine Estim Creat Clear Calc Estimated GFR Glucose Lactic Acid 1.3 Calcium Troponin I 0.245 H* 12/21/19 12/21/19 12/22/19 19:24 23:42 06:09 WBC 11.3 H RBC 3.34 L Hgb 9.9 L 9.6 L Hct 31.1 L 30.0 L MCV 89.8 MCH 28.7 MCHC 32.0 RDW 16.3 H Plt Count 177 MPV 10.4 Sodium 138 Potassium 2.9 L Chloride 87 L Carbon Dioxide > 40 H Anion Gap 10.29922 BUN 64 H Creatinine 2.10 H Estim Creat Clear Calc 26 Estimated GFR 23 L Glucose 124 H Lactic Acid Calcium 7.9 L Troponin I 12/22/19 06:09 WBC RBC Hgb Hct MCV MCH MCHC RDW Plt Count MPV Sodium 140 Potassium 3.0 L Chloride 92 L Carbon Dioxide > 40 H Anion Gap 7.90648 L BUN 60 H Creatinine 1.90 H Estim Creat Clear Calc 28 Estimated GFR 26 L Glucose 112 H Lactic Acid Calcium 7.7 L Troponin I Microbiology 12/20/19 12:03 Blood Blood Culture - Preliminary 12/20/19 11:27 Blood Blood Culture - Preliminary Post-procedural complaints: none Patient Feedback: Patient satisfied with anesthetic care.
--- NOTE | 2019-12-22 10:11 | WPDGIPROGNO ---
Progress Note: A&P Additional Plan Patient alert more comfortable today. Physical exam reveals NG tube in place. Large output noted. She is anicteric. Lungs are clear. Heart without murmur. Abdomen soft nontender with no hepatosplenomegaly. Massive ventral hernia identified. Labs reveal hemoglobin 9.6, hematocrit 30, MCV 89. Impression 1. Pyloric channel ulcer. 2. 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 Plan to continue NG tube decompression. Monitor Intake and output. Continue IV Protonix. Follow-up EGD in several days. Perhaps next week if necessary. If outlet fails to improve she may need gastric decompression surgery. This would be difficult with her comorbid diseases. 3. Obesity. 4. Large ventral hernia. Subjective Date/time seen: 12/22/19 10:11 Objective Data Vital Signs Vital Signs: Vital Signs - 24 hr 12/21/19 12:00 12/21/19 12:54 12/21/19 15:11 Temperature 97.2 F L 97.8 F Pulse Rate 74 76 82 Respiratory Rate 20 Blood Pressure 151/81 H 98/72 L Pulse Oximetry 96 97 12/21/19 15:21 12/21/19 15:31 12/21/19 15:41 Temperature Pulse Rate 80 78 83 Respiratory Rate Blood Pressure 121/74 140/87 137/56 L Pulse Oximetry 97 98 95 12/21/19 15:51 12/21/19 16:01 12/21/19 16:11 Temperature 97.9 F Pulse Rate 78 78 76 Respiratory Rate Blood Pressure 137/91 H 115/80 118/78 Pulse Oximetry 98 97 98 12/21/19 16:45 12/21/19 16:50 12/21/19 17:30 Temperature 96.3 F L 96.5 F L Pulse Rate 83 83 74 Respiratory Rate 18 18 Blood Pressure 150/69 H 133/52 L Pulse Oximetry 98 96 12/21/19 18:00 12/21/19 19:58 12/21/19 20:00 Temperature 97.8 F Pulse Rate 74 77 69 Respiratory Rate 20 Blood Pressure 91/61 L Pulse Oximetry 99 12/21/19 20:40 12/21/19 21:35 12/21/19 21:52 Temperature Pulse Rate 67 73 Respiratory Rate Blood Pressure 136/50 L Pulse Oximetry 93 12/21/19 23:18 12/22/19 00:00 12/22/19 01:47 Temperature 97.9 F Pulse Rate 70 69 73 Respiratory Rate 22 H Blood Pressure 122/41 L Pulse Oximetry 94 12/22/19 04:00 12/22/19 04:09 12/22/19 06:00 Temperature 96.8 F L Pulse Rate 72 67 65 Respiratory Rate 18 Blood Pressure 145/62 H Pulse Oximetry 98 12/22/19 08:00 Temperature 97.1 F L Pulse Rate 69 Respiratory Rate 18 Blood Pressure 140/50 L Pulse Oximetry 98 Intake/Output Intake/Output: Intake & Output 12/19/19 12/20/19 12/21/19 12/22/19 23:59 23:59 23:59 23:59 Intake Total 3500 2780 1621 Output Total 1572 8085 650 Balance 1925 -0912 971 Meds/Results Medications: Active Medications Generic Name Dose Route Start Last Admin Trade Name Freq PRN Reason Stop Dose Admin Calcitriol 0.25 mcg 12/21/19 09:00 12/21/19 15:44 Rocaltrol PO Not Given DAILY GREG Diltiazem HCl 180 mg 12/20/19 21:50 12/20/19 22:37 Cardizem Cd PO Not Given QPM GREG Docusate Sodium 100 mg 12/21/19 09:00 12/21/19 15:45 Colace Capsule PO Not Given DAILY GREG Fluticasone Propionate 2 spray 12/21/19 09:00 12/21/19 18:20 Flonase 0.05% Nasal [place] NASAL Not Given DAILY GREG Gabapentin 300 mg 12/20/19 21:50 12/20/19 22:38 Neurontin PO Not Given HS GREG Sodium Chloride 1,000 mls @ 100 mls/hr 12/20/19 11:45 12/22/19 06:10 Normal Saline Iv IV CONT 100 mls/hr .Q10H GREG Infusion Ceftriaxone Sodium/Dextrose 1 gm in 50 mls @ 100 mls/hr 12/21/19 17:00 12/21/19 19:56 Rocephin 1 Gm/D5w 50 Ml IVPB Infused Q24H GREG Infusion Potassium Chloride 100 mls @ 25 mls/hr 12/22/19 06:48 12/22/19 07:12 Kcl 40 Meq/Water 100 Ml IVPB 12/22/19 10:47 25 mls/hr ONCE ONE Administration Letrozole 2.5 mg 12/21/19 09:00 12/21/19 15:45 Femara PO Not Given DAILY GREG Melatonin 3 mg 12/20/19 21:42 Melatonin PO HS PRN Insomnia Metoprolol Tartrate 12.5 mg 12/20/19 21:50 12/21/19 15:45 Lopressor PO Not Given
--- NOTE | 2019-12-22 10:50 | PM.CNCAR ---
Assessment and Plan Additional Plan This is a pleasant 74-year-old lady who has a dual-chamber Biotronik pacemaker device that was implanted 2 years ago at [facility]. Somewhere shortly after that it seems that she degenerated into atrial fibrillation and is being managed with simple rate control and anticoagulation. Her pacemaker device is functioning normally. Appropriately her a systemic anticoagulation has been discontinued and it may be reasonable to resume this in the future if she is doing well and there is documented healing of the ulcer. For reasons that are not clinically evident she had troponin levels sampled following admission I do not believe there is any other evidence of an acute coronary syndrome. Patient indicates to me that she does not wish to dismiss her established physicians and will continue to follow with her early intervention specialist in [place] after did discharge from [facility]. For this reason we will not continue to follow her while she is in the hospital here. If there are cardiac issues at [facility] prior to discharge please let me know. If not I will presume she is going to follow up with her established physician since that is her stated which at this time Oral Lezama MD [facility] History of Present Illness History of Present Illness Consult date/time: date of service:12/22/19 10:50 Reason For Visit: Vomiting and epigastric pain. Narrative: This is a 74-year-old woman who was hospitalized here a couple of days ago with abdominal pain found to have an upper GI bleed with coffee-ground emesis. Dr. leon shrestha from gastroenterology was consulted to see the patient and has evaluated the her with an upper endoscopy. She was found to have an antral ulcer that was bleeding resulting in gastric outlet obstruction as well. For that reason she is currently on NG suction and recovering in her hospital room in the IMU. She is on telemetry and appears to be in atrial fibrillation with a controlled ventricular response. The patient has a cardiac pacemaker device which was implanted at [facility] by a physician over there are 2 years ago. Because she has a pacemaker we have been Asked to see her in consultation today. She does not have any cardiovascular symptoms. The device is a Biotronik device which we did have interrogated and is functioning normally. She continues to follow with the implanting physician who put the device in in [facility] a couple of years ago. Her primary care physician is also over in that vicinity. The note in the chart indicates we are asked to see her to become established with care for our practice. The patient tells me today that she does not wish to change physicians and upon discharge expect to continue to follow with her early intervention specialist in [place]. The other stated reason for us to see her in consultation was an elevation in troponin. These levels are out of normal range but relatively flat. She has no clinical evidence of her symptoms to suggest an acute coronary syndrome. I cannot explain why the troponin levels were done in the 1st place. She indicates no history of or knowledge of coronary artery disease. The patient does state that she has been in atrial fibrillation for about 2 years. Her early intervention specialist in [place] has placed her on anticoagulation with apixaban 5 mg b.i.d. for that reason. She of course is off of that now because of the GI bleed. Review of Systems Constitutional: Constitutional: Reports fatigue Eyes: Eyes: Reports no additional eye complaints ENT: Reports system reviewed and no additional complaints, except as documented Cardiovascular: Cardiovascular: Reports no additional cardiovascular complaints Respiratory: Respiratory: Reports no additional respiratory complaints Gastrointestinal: Gastrointestinal: Reports no additional gastrointestinal complaints Musculoskeletal: Musculoskeletal: Reports no additional musculoskeletal complaints
--- NOTE | 2019-12-22 11:09 | PC.NURSE ---
Patients morning meds on hold for reevaluation of NG tube output. Called Dr. Rios left message. Called Dr. Guzmán left message.
--- NOTE | 2019-12-22 11:32 | PC.NURSE ---
Spoke with Dr. Guzmán he advised that patient is NPO and should not be taking any PO meds. All meds need to be switched to IV. Called Dr. Rios to advise and left message.
[2019-12-22] MEDS: FLUTICASONE PROPIONATE 0.05% NA SPR 16 GM BTL (*BKC) 2 SPRAY NASAL (12:09)
[2019-12-22] MEDS: PANTOPRAZOLE SODIUM IV 40 MG VIAL IV PUSH ×2 (12:09→21:13)
[2019-12-22] MEDS: MICONAZOLE NITRATE 2% CREAM 30 GM TUBE 1 APPLIC TOPICAL ×2 (12:10→21:13)
[2019-12-22] MEDS: MUPIROCIN 2% OINT 22 GM TUBE 1 APPLIC TOPICAL ×2 (12:10→21:13)
[2019-12-22 16:26] LABS: Potassium 3.1 mmol/L (3.4-5.0)
--- NOTE | 2019-12-22 17:44 | P.PNIM_ITS ---
Progress Note: A&P Assessment and Plan (1) Hematemesis: Code(s): K92.0 - Hematemesis Status: Acute Assessment and Plan: * severe hematemesis * central line placed * continue iv fluids iv protonix bid * hold all BP meds, hold all oral meds tonite * iv hydralazine if needed * continue to monitor hb/ hct (2) Constipation: Code(s): K59.00 - Constipation, unspecified Status: Resolved Assessment and Plan: * (3) Dehydration: Code(s): E86.0 - Dehydration Status: Acute Assessment and Plan: * continue fluids (4) Elevated troponin: Code(s): R79.89 - Other specified abnormal findings of blood chemistry Status: Acute Assessment and Plan: * trop in am elevatedin light of GI bleed, (5) Leukocytosis: Qualifiers: Leukocytosis type: other Qualified Code(s): D72.828 - Other elevated white blood cell count Code(s): D72.829 - Elevated white blood cell count, unspecified Status: Acute Assessment and Plan: * ? breast cancer and wcc runs high ? stress reaction ? sepsis ordered lactate and fluids and BC . * Wcc now after fluid hydration (6) Respiratory insufficiency: Code(s): R06.89 - Other abnormalities of breathing Status: Resolved Assessment and Plan: * Pulmonary embolism not likely as she has been on Eliquis. 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 * Eliquis currently on hold given hematemesis. (8) Hypertension: Code(s): I10 - Essential (primary) hypertension Status: Acute Assessment and Plan: * Blood pressures were reviewed and initially they were soft, but have improved with IV fluids. * Monitor Bmp Subjective Date/time seen: 12/22/19 17:44 Interval history: Lang is a chronically debilitated, morbidly obese 74-year-old female who presented to the emergency department earlier today via EMS from home for evaluation of epigastric pain and vomiting. Pt having hematemesis went down for EGD found to have gastric ulcer. Pt had central line placed for hypotension pt is going to IMU. Pts WCC is high ? sepsis troponin slightly elevated and potassium slightly low. Creat has gone up secondary to recent hematemesis. 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 found in EGD Alot of blood loss continue to monitor HB / HCT pt is NPO with NG tube continue to monitor Potassium levels and continue fluid hydration Review of Systems Review of Systems: ROS unobtainable: Yes other (hematemesis likley old blood from stomach ) Exam Narrative: Exam Narrative: NG tube in situ dark blood copious in tub Pt very tired and pale Large lady RRR chest is clear Abdo soft non tender Legs non edmatous Objective Data Vital Signs Vital Signs:
--- NOTE | 2019-12-22 17:44 | PM.IMPN ---
Progress Note: A&P Assessment and Plan (1) Hematemesis: Code(s): K92.0 - Hematemesis Status: Acute Assessment and Plan: severe hematemesis central line placed continue iv fluids iv protonix bid hold all BP meds, hold all oral meds tonite iv hydralazine if needed continue to monitor hb/ hct (2) Constipation: Code(s): K59.00 - Constipation, unspecified Status: Resolved Assessment and Plan: (3) Dehydration: Code(s): E86.0 - Dehydration Status: Acute Assessment and Plan: continue fluids (4) Elevated troponin: Code(s): R79.89 - Other specified abnormal findings of blood chemistry Status: Acute Assessment and Plan: trop in am elevatedin light of GI bleed, (5) Leukocytosis: Qualifiers: Leukocytosis type: other Qualified Code(s): D72.828 - Other elevated white blood cell count Code(s): D72.829 - Elevated white blood cell count, unspecified Status: Acute Assessment and Plan: ? breast cancer and wcc runs high ? stress reaction ? sepsis ordered lactate and fluids and BC . Wcc now after fluid hydration (6) Respiratory insufficiency: Code(s): R06.89 - Other abnormalities of breathing Status: Resolved Assessment and Plan: Pulmonary embolism not likely as she has been on Eliquis. 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 Eliquis currently on hold given hematemesis. (8) Hypertension: Code(s): I10 - Essential (primary) hypertension Status: Acute Assessment and Plan: Blood pressures were reviewed and initially they were soft, but have improved with IV fluids. Monitor Bmp Subjective Date/time seen: 12/22/19 17:44 Interval history: Lang is a chronically debilitated, morbidly obese 74-year-old female who presented to the emergency department earlier today via EMS from home for evaluation of epigastric pain and vomiting. Pt having hematemesis went down for EGD found to have gastric ulcer. Pt had central line placed for hypotension pt is going to IMU. Pts WCC is high ? sepsis troponin slightly elevated and potassium slightly low. Creat has gone up secondary to recent hematemesis. 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 found in EGD Alot of blood loss continue to monitor HB / HCT pt is NPO with NG tube continue to monitor Potassium levels and continue fluid hydration Review of Systems Review of Systems: ROS unobtainable: Yes other (hematemesis likley old blood from stomach ) Exam Narrative: Exam Narrative: NG tube in situ dark blood copious in tub Pt very tired and pale Large lady RRR chest is clear Abdo soft non tender Legs non edmatous Objective Data Vital Signs Vital Signs: Vital Signs - 24 hr 12/21/19 18:00 12/21/19 19:58 12/21/19 20:00 Temperature 36.6 C Pulse Rate 74 77 69 Respiratory Rate 20 Blood Pressure 91/61 L Pulse Oximetry 99 12/21/19 20:40 12/21/19 21:35 12/21/19 21:52 Temperature Pulse Rate 67 73 Respiratory Rate Blood Pressure 136/50 L Pulse Oximetry 93 12/21/19 23:18 12/22/19 00:00 12/22/19 01:47 Temperature 36.6 C Pulse Rate 70 69 73 Respiratory Rate 22 H Blood Pressure 122/41 L Pulse Oximetry 94 12/22/19 04:00 12/22/19 04:09 12/22/19
[2019-12-23] VITALS (13 sets, daily range): BP systolic 139–161; BP diastolic 53–80; PULSE 51–71; RESP 18–24; TEMP 35.6–36.9; O2SAT 97–100
[2019-12-23] MEDS: SODIUM CHLORIDE 0.9% IV 1,000 ML 100 ML IV CONT ×3 (01:12→20:28)
[2019-12-23 04:58] LABS: Hematocrit 28.5 % (37.0-47.0); Hemoglobin 8.8 g/dL (12.0-15.0); Mean Corpuscular HGB Conc 30.9 g/dl (32-36); Mean Corpuscular Hemoglobin 28.2 pg (26-34); Mean Corpuscular Volume 91.3 fl (80-100); Platelet Count Result 160 k/mm3 (150-375); Red Blood Count 3.12 M/mm3 (4.2-5.4); White Blood Count 8.5 K/mm3 (4.5-10.0)
[2019-12-23 05:10] LABS: Anion Gap 2.99999 mmol/L (8-16); Blood Urea Nitrogen 39 mg/dL (7-17); Calcium 7.7 mg/dL (8.4-10.2); Carbon Dioxide > 40 mmol/L (22-30); Chloride 101 mmol/L (98-107); Estimated CRCL calculation 47 ml/min; Estimated Glomerular Filt Rate 49; Glucose 85 mg/dL (65-105); Sodium 144 mmol/L (137-145)
--- NOTE | 2019-12-23 06:16 | P.CDI_ITS ---
CDI Query Clarification Request 1) - 12/19 H&H 16.1/48.8 12/20 H&H9.9/31.1 8 H&H 8.8/28.5 - Severe hematemesis has been documented - A lot of blood loss has been documented Please clarify if there is a corresponding diagnosis for above findings: * Acute blood loss anemia * Acute anemia of other cause * Other * Unable to determine * Not clinically significant 2) - 12/19 creatinine 1.00 GFR 55 12/20 creatinine 1.9 and 2.1 GFR 26 and 23 12/21 creatinine 1.9 GFR 26 12/22 creatinine 1.1 GFR 49 Please clarify if there is a corresponding diagnosis for above findings. <Briana Isaac RN - Last Filed: 12/23/19 06:29> Acute blood loss anemia ELEVATED creat due to dehydration and hypovolemia <Laureen Rios MD - Last Filed: 12/24/19 16:04>
--- NOTE | 2019-12-23 09:31 | WPDGIPROGNO ---
Progress Note: A&P Additional Plan Patient more alert and talkative today. No longer vomiting. NG tube lavage is now clear. Physical exam reveals patient to be alert. Vital signs stable. HEENT exam unremarkable. Lungs are clear. Heart without murmur. Abdomen is obese. More soft and less tender to today less distended. Ventral hernia still very large. Impression 1. Gastric outlet obstruction. Plan is to continue NG tube decompression. Follow-up EGD tomorrow to assess ulcer at pylorus. Continue proton pump inhibitor therapy at a high dose. We may need to consider surgical therapy at some point if medicines fail to improve. 2. Pyloric channel ulcer. Patient to maintain proton pump inhibitor therapy. Avoid nonsteroidal anti-inflammatory agents. 3. Anemia. Appears to be a blood loss anemia. No longer with coffee-ground emesis. No active bleeding evident. 4. Obesity. 5. Ventral hernia. Very large. Uncertain if surgical therapy would be of any benefit. Subjective Date/time seen: 12/23/19 09:31 Objective Data Vital Signs Vital Signs: Vital Signs - 24 hr 12/22/19 10:00 12/22/19 12:00 12/22/19 12:06 Temperature 97.3 F L Pulse Rate 67 71 66 Respiratory Rate 20 Blood Pressure 132/56 L Pulse Oximetry 100 12/22/19 14:00 12/22/19 16:00 12/22/19 16:20 Temperature 97 F L Pulse Rate 67 63 65 Respiratory Rate 16 Blood Pressure 137/49 L Pulse Oximetry 96 12/22/19 18:00 12/22/19 18:21 12/22/19 20:00 Temperature 97.8 F Pulse Rate 66 65 63 Respiratory Rate 20 Blood Pressure 102/43 L Pulse Oximetry 98 12/22/19 22:00 12/22/19 23:41 12/23/19 00:00 Temperature 97.9 F Pulse Rate 62 65 71 Respiratory Rate 20 Blood Pressure 106/51 L Pulse Oximetry 98 12/23/19 02:00 12/23/19 04:00 12/23/19 05:51 Temperature 98.0 F Pulse Rate 61 66 61 Respiratory Rate 18 Blood Pressure 139/53 L Pulse Oximetry 98 12/23/19 08:24 Temperature 96.1 F L Pulse Rate 58 L Respiratory Rate 24 H Blood Pressure 153/65 H Pulse Oximetry 100 Intake/Output Intake/Output: Intake & Output 12/20/19 12/21/19 12/22/19 12/23/19 23:59 23:59 23:59 23:59 Intake Total 3500 2780 2950 1055 Output Total 1575 3925 900 50 Balance 1925 -1145 2050 1005 Meds/Results Medications: Active Medications Generic Name Dose Route Start Last Admin Trade Name Freq PRN Reason Stop Dose Admin Calcitriol 0.25 mcg 12/21/19 09:00 12/22/19 12:05 Rocaltrol PO Not Given DAILY GREG Diltiazem HCl 180 mg 12/20/19 21:50 12/22/19 18:22 Cardizem Cd PO Not Given QPM GREG Docusate Sodium 100 mg 12/21/19 09:00 12/22/19 12:05 Colace Capsule PO Not Given DAILY GREG Fluticasone Propionate 2 spray 12/21/19 09:00 12/22/19 12:09 Flonase 0.05% Nasal Peel NASAL 2 spray DAILY GREG Administration Gabapentin 300 mg 12/20/19 21:50 12/23/19 02:34 Neurontin PO Not Given HS GREG Hydralazine HCl 5 mg 12/22/19 11:36 Apresoline Hcl Inj IV PUSH Q8H PRN Blood Pressure - High Sodium Chloride 1,000 mls @ 100 mls/hr 12/20/19 11:45 12/23/19 04:45 Normal Saline Iv IV CONT 100 mls/hr .Q10H GREG Infusion Ceftriaxone Sodium/Dextrose 1 gm in 50 mls @ 100 mls/hr 12/21/19 17:00 12/22/19 19:02 Rocephin 1 Gm/D5w 50 Ml IVPB Infused Q24H GREG Infusion Letrozole 2.5 mg 12/21/19 09:00 12/22/19 12:06 Femara PO Not Given DAILY GREG Melatonin 3 mg 12/20/19 21:42 Melatonin PO HS PRN Insomnia Metoprolol Tartrate 12.5 mg 12/20/19 21:50 12/22/19 18:21 Lopressor PO Not Given BID GREG Miconazole Nitrate 1 applic 12/21/19 21:00 12/22/19 21:13 Miconazole Nitrate 2% Cream TOPICAL 1 applic Q12HR GREG Administration Mupirocin 1 applic 12/21/19 21:00 12/22/19 21:13 Bactroban 2% Oint TOPICAL 1 applic Q12HR GREG Administration Ondansetron HCl 4 mg 12/20/19 11:42 12/21/19 05:22 Zofra
[2019-12-23] MEDS: MUPIROCIN 2% OINT 22 GM TUBE 1 APPLIC TOPICAL (10:20)
[2019-12-23] MEDS: PANTOPRAZOLE SODIUM IV 40 MG VIAL IV PUSH ×2 (10:21→20:28)
--- NOTE | 2019-12-23 10:34 | PM.PNCARD ---
Progress Note: A&P Assessment and Plan (1) Elevated troponin: Code(s): R79.89 - Other specified abnormal findings of blood chemistry Status: Acute Assessment and Plan: not related to ACS (2) Hypertension: Code(s): I10 - Essential (primary) hypertension Status: Acute Assessment and Plan: reasonably controlled for now (3) residential current use of anticoagulant: Code(s): Z79.01 - residential (current) use of anticoagulants Status: Acute Assessment and Plan: resume anticoagulation when able (4) History of permanent cardiac pacemaker placement: Code(s): Z95.0 - Presence of cardiac pacemaker Status: Acute Assessment and Plan: functioning normally (5) Atrial fibrillation: Code(s): I48.91 - Unspecified atrial fibrillation Status: Acute Assessment and Plan: previously on anticoagulation. Resume when able (6) Hypokalemia: Code(s): E87.6 - Hypokalemia Status: Acute Assessment and Plan: potassium [id number] mEq IV x1 Subjective Date/time seen: 12/23/19 10:34 Interval history: Lang is a chronically debilitated, morbidly obese 74-year-old female who presented to the emergency department earlier today via EMS from home for evaluation of epigastric pain and vomiting. patient was admitted for hematemesis Date of service 12/23/2019: She is thirsty but otherwise is doing okay. No chest pain or shortness of breath. Review of Systems Constitutional: Constitutional: Reports fatigue Eyes: Eyes: Reports no additional eye complaints ENT: Reports system reviewed and no additional complaints, except as documented Cardiovascular: Cardiovascular: Reports no additional cardiovascular complaints Respiratory: Respiratory: Reports no additional respiratory complaints Gastrointestinal: Gastrointestinal: Reports no additional gastrointestinal complaints Musculoskeletal: Musculoskeletal: Reports no additional musculoskeletal complaints Integumentary/Breasts: Skin/Breast: Reports system reviewed and no additional complaints, except as docu Neurologic: Reports system reviewed and no additional complaints, except as documented Psychiatric: Psychiatric: Reports no additional psychiatric complaints Endocrine: Endocrine: Reports no additional endocrine complaints and Reports fatigue Hematologic/Lymphatic: Hematologic/Lymphatic: Reports no additional hematologic/lymphatic complaints Allergic/Immunologic: Allergic/Immunologic: Reports no additional allergic/immunologic complaints Exam Const: General: no acute distress Other: Obese white female laying in bed with nasal cannula oxygen in place. She offers no complaints currently and answers questions appropriately. HENMT: Mouth: Yes moist mucous membranes Eyes: Sclera: sclerae normal Pupils: Equal, round and reactive pupils present Neck: Neck: supple and no JVD Thyroid: thyroid normal Resp: Effort & Inspection: normal respiratory effort Auscultation: clear to auscultation bilaterally Cardio: Rate: regular rate Rhythm: abnormal rhythm irregularly irregular GI: Auscultation: normal bowel sounds Skin: General skin exam: normal color Neuro: Cranial nerves: Yes Equal, round and reactive pupils present Cognition (Neuro): normal cognition Extrem: Other: Distal pulses are adequate in all 4 limbs. Objective Data Vital Signs Vital Signs: Vital Signs - 24 hr 12/22/19 12:00 12/22/19 12:06 12/22/19 14:00 Temperature 36.3 C L Pulse Rate 71 66 67 Respiratory Rate 20 Blood Pressure 132/56 L Pulse Oximetry 100 12/22/19 16:00 12/22/19 16:20 12/22/19 18:00 Temperature 36.1 C L Pulse Rate 63 65 66 Respiratory Rate 16 Blood Pressure 137/49 L Pulse Oximetry 96 12/22/19 18:21 12/22/19 20:00 12/22/19 22:00 Temperature 36.6 C Pulse Rate 65 63 62 Respiratory Rate 20 Blood Pressure 102/43 L Pulse Oximetry 98
[2019-12-23 14:52] LABS: Potassium 3.4 mmol/L (3.4-5.0)
--- NOTE | 2019-12-23 16:47 | PC.NURSE ---
This patient, Ashley Croft, was received from IMU on 12/23/19 at 1640. Report from Norma. Personal belongings list checked and signed. Patient/family oriented to unit policies and routines
--- NOTE | 2019-12-23 16:57 | PC.NURSE ---
This patient, Ashley Croft, was transferred to [facility] on 12/23/19 at 1635. Personal belongings sent with patient. Belongings list checked and signed with receiving. Report given to INNA Talley. Appropriate documentation sent with patient
--- NOTE | 2019-12-23 17:17 | P.PNIM_ITS ---
Progress Note: A&P Assessment and Plan (1) Hematemesis: Code(s): K92.0 - Hematemesis Status: Acute Assessment and Plan: * severe hematemesis resolving old blood in stomach * central line placed * continue iv fluids iv protonix bid * hold all BP meds, hold all oral meds tonite * iv hydralazine if needed * continue to monitor hb/ hct (2) Constipation: Code(s): K59.00 - Constipation, unspecified Status: Resolved Assessment and Plan: * (3) Dehydration: Code(s): E86.0 - Dehydration Status: Acute Assessment and Plan: * continue fluids (4) Elevated troponin: Code(s): R79.89 - Other specified abnormal findings of blood chemistry Status: Acute Assessment and Plan: * trop elevatedin light of GI bleed, (5) Leukocytosis: Qualifiers: Leukocytosis type: other Qualified Code(s): D72.828 - Other elevated white blood cell count Code(s): D72.829 - Elevated white blood cell count, unspecified Status: Acute Assessment and Plan: * Wcc normal now after fluid hydration (6) Respiratory insufficiency: Code(s): R06.89 - Other abnormalities of breathing Status: Resolved Assessment and Plan: * Pulmonary embolism not likely as she has been on Eliquis. * Hold eliquis pt is actively bleeding (7) longterm current use of anticoagulant: Code(s): Z79.01 - longterm (current) use of anticoagulants Status: Acute Assessment and Plan: . * Eliquis currently on hold given hematemesis. (8) Hypertension: Code(s): I10 - Essential (primary) hypertension Status: Acute Assessment and Plan: * Blood pressures were reviewed and initially they were soft, but have improved with IV fluids. * Monitor Bmp Subjective Date/time seen: 12/23/19 17:17 Interval history: Lang is a chronically debilitated, morbidly obese 74-year-old female who presented to the emergency department earlier today via EMS from home for evaluation of epigastric pain and vomiting. Pt having hematemesis went down for EGD found to have gastric ulcer. Pt had central line placed for hypotension pt is going to IMU. 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 found in EGD Alot of blood loss continue to monitor HB / HCT pt is NPO with NG tube continue to monitor Potassium levels and continue fluid hydration Follow-up EGD tomorrow Review of Systems Review of Systems: ROS unobtainable: Yes unobtainable due to medical condition Exam Narrative: Exam Narrative: NG tube in situ little blood in tub now Pt very tired and pale Large lady RRR chest is clear Abdo soft non tender Legs non edmatous Objective Data Vital Signs Vital Signs: Vital Signs - 24 hr 12/22/19 18:00 12/22/19 18:21 12/22/19 20:00 Temperature 36.6 C Pulse Rate 66 65 63 Respiratory Rate 2
--- NOTE | 2019-12-23 17:17 | PM.IMPN ---
Progress Note: A&P Assessment and Plan (1) Hematemesis: Code(s): K92.0 - Hematemesis Status: Acute Assessment and Plan: severe hematemesis resolving old blood in stomach central line placed continue iv fluids iv protonix bid hold all BP meds, hold all oral meds tonite iv hydralazine if needed continue to monitor hb/ hct (2) Constipation: Code(s): K59.00 - Constipation, unspecified Status: Resolved Assessment and Plan: (3) Dehydration: Code(s): E86.0 - Dehydration Status: Acute Assessment and Plan: continue fluids (4) Elevated troponin: Code(s): R79.89 - Other specified abnormal findings of blood chemistry Status: Acute Assessment and Plan: trop elevatedin light of GI bleed, (5) Leukocytosis: Qualifiers: Leukocytosis type: other Qualified Code(s): D72.828 - Other elevated white blood cell count Code(s): D72.829 - Elevated white blood cell count, unspecified Status: Acute Assessment and Plan: Wcc normal now after fluid hydration (6) Respiratory insufficiency: Code(s): R06.89 - Other abnormalities of breathing Status: Resolved Assessment and Plan: Pulmonary embolism not likely as she has been on Eliquis. 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 Eliquis currently on hold given hematemesis. (8) Hypertension: Code(s): I10 - Essential (primary) hypertension Status: Acute Assessment and Plan: Blood pressures were reviewed and initially they were soft, but have improved with IV fluids. Monitor Bmp Subjective Date/time seen: 12/23/19 17:17 Interval history: Lang is a chronically debilitated, morbidly obese 74-year-old female who presented to the emergency department earlier today via EMS from home for evaluation of epigastric pain and vomiting. Pt having hematemesis went down for EGD found to have gastric ulcer. Pt had central line placed for hypotension pt is going to IMU. 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 found in EGD Alot of blood loss continue to monitor HB / HCT pt is NPO with NG tube continue to monitor Potassium levels and continue fluid hydration Follow-up EGD tomorrow Review of Systems Review of Systems: ROS unobtainable: Yes unobtainable due to medical condition Exam Narrative: Exam Narrative: NG tube in situ little blood in tub now Pt very tired and pale Large lady RRR chest is clear Abdo soft non tender Legs non edmatous Objective Data Vital Signs Vital Signs: Vital Signs - 24 hr 12/22/19 18:00 12/22/19 18:21 12/22/19 20:00 Temperature 36.6 C Pulse Rate 66 65 63 Respiratory Rate 20 Blood Pressure 102/43 L Pulse Oximetry 98 12/22/19 22:00 12/22/19 23:41 12/23/19 00:00 Temperature 36.6 C Pulse Rate 62 65 71 Respiratory Rate 20 Blood Pressure 106/51 L Pulse Oximetry 98 12/23/19 02:00 12/23/19 04:00 12/23/19 05:51 Temperature 36.7 C Pulse Rate 61 66 61 Respiratory Rate 18 Blood Pressure 139/53 L Pulse Oximetry 98 12/23/19 08:00 12/23/19 08:24 12/23/19 10:00 Temperature 35.6 C L Pulse Rate 55 L 58 L 58 L Respiratory Rate 24 H Blood Pressure 153/65 H Pulse Oximetry 100 12/23/19 10:12 12/23/19 12:00 12/23/19 14:00
[2019-12-24] VITALS (10 sets, daily range): BP systolic 135–194; BP diastolic 43–95; PULSE 49–72; RESP 18–22; TEMP 36.4–36.8; O2SAT 90–100
[2019-12-24] MEDS: SODIUM CHLORIDE 0.9% IV 1,000 ML 100 ML IV CONT (05:34)
[2019-12-24 06:18] LABS: Hematocrit 30.4 % (37.0-47.0); Hemoglobin 9.5 g/dL (12.0-15.0); Mean Corpuscular HGB Conc 31.3 g/dl (32-36); Mean Corpuscular Hemoglobin 28.4 pg (26-34); Mean Corpuscular Volume 90.7 fl (80-100); Mean Platelet Volume 10.8 fl (7.4-10.4); Platelet Count Result 185 k/mm3 (150-375); Red Blood Count 3.35 M/mm3 (4.2-5.4); Red Cell Distribution Width 15.2 % (11.5-14.5); White Blood Count 11.5 K/mm3 (4.5-10.0)
[2019-12-24 06:38] LABS: Anion Gap 8 mmol/L (8-16); Blood Urea Nitrogen 20 mg/dL (7-17); Calcium 8.1 mg/dL (8.4-10.2); Carbon Dioxide 32 mmol/L (22-30); Chloride 104 mmol/L (98-107); Estimated CRCL calculation 72 ml/min; Estimated Glomerular Filt Rate > 60; Glucose 72 mg/dL (65-105); Potassium 3.2 mmol/L (3.4-5.0); Sodium 144 mmol/L (137-145)
[2019-12-24] MEDS: PANTOPRAZOLE SODIUM IV 40 MG VIAL IV PUSH ×2 (08:06→21:04)
[2019-12-24] MEDS: MUPIROCIN 2% OINT 22 GM TUBE 1 APPLIC TOPICAL ×2 (08:07→21:42)
--- NOTE | 2019-12-24 09:26 | PC.NURSE ---
To GI Lab per ksenia, IV RT IJ saline locked. Report given to Zoie @ [phone].
--- NOTE | 2019-12-24 10:07 | WPDANESEPPF ---
Anes - Initial Pre Proc Eval Procedure: Operation Date: 12/21/19 13:30 Proposed Procedures p Esophagogastroduodenoscopy - Leeroy Guzmán MD Operation Date: 12/24/19 10:30 Proposed Procedures p Esophagogastroduodenoscopy - Leeroy Guzmán MD Date/Time: 12/24/19 10:07 Surgeon: Kieran Jenkins MD Pre Op Diagnosis: Vomiting and epigastric pain. Patient Data Age: 74 Gender: F Height: 5 ft 3 in Weight: 106.5 kg Last Vital Signs Temp 98.3 F 12/24/19 10:06 Pulse 63 12/24/19 10:06 Resp 18 12/24/19 06:00 BP 158/71 H 12/24/19 10:06 Pulse Ox 100 12/24/19 10:06 Allergies Allergy/AdvReac Type Severity Reaction Status Date / Time No Known Allergies Allergy Verified 12/20/19 08:29 Home Medications Medication Instructions Recorded Confirmed Type apixaban 5 mg PO BID 12/20/19 12/20/19 History aspirin 81 mg PO DAILY 12/20/19 12/20/19 History calcitriol 0.25 mcg PO DAILY 12/20/19 12/20/19 History clotrimazole 1 applic TOPICAL BID 12/20/19 12/20/19 History diltiazem HCl [Cardizem CD] 180 mg PO DAILY 12/20/19 12/20/19 History docusate sodium [Colace] 100 mg PO DAILY 12/20/19 12/20/19 History fluticasone propionate 2 spray INTRANASAL DAILY 12/20/19 12/20/19 History furosemide 40 mg PO DAILY 12/20/19 12/20/19 History gabapentin 300 mg PO HS 12/20/19 12/20/19 History hydrocodone-acetaminophen 1 tablet PO Q6H PRN 12/20/19 12/20/19 History hydroxyzine pamoate 50 mg PO HS 12/20/19 12/20/19 History letrozole 2.5 mg PO DAILY 12/20/19 12/20/19 History melatonin 3 mg PO HS PRN 12/20/19 12/20/19 History metoprolol tartrate 12.5 mg PO BID 12/20/19 12/20/19 History mupirocin 1 applic TOPICAL BID 12/20/19 12/20/19 History potassium chloride 20 meq PO DAILY 12/20/19 12/20/19 History pregabalin 100 mg PO BID 12/20/19 12/20/19 History Laboratory Tests 12/23/19 12/24/19 12/24/19 14:28 05:32 05:32 WBC 11.5 K/mm3 H K/mm3 (4.5-10.0) RBC 3.35 M/mm3 L M/mm3 (4.2-5.4) Hgb 9.5 g/dL L g/dL (12.0-15.0) Hct 30.4 % L % (37.0-47.0) MCV 90.7 fl fl (80-100) MCH 28.4 pg pg (26-34) MCHC 31.3 g/dl L g/dl (32-36) RDW 15.2 % H % (11.5-14.5) Plt Count 185 k/mm3 k/mm3 (150-375) MPV 10.8 fl H fl (7.4-10.4) Sodium 144 mmol/L mmol/L (137-145) Potassium 3.4 mmol/L mmol/L 3.2 mmol/L L mmol/L (3.4-5.0) (3.4-5.0) Chloride 104 mmol/L mmol/L (98-107) Carbon Dioxide 32 mmol/L H mmol/L (22-30) Anion Gap 8 mmol/L mmol/L (8-16) BUN 20 mg/dL H D mg/dL (7-17) Creatinine 0.70 mg/dL mg/dL (0.7-1.0) Estim Creat Clear Calc 72 ml/min ml/min Estimated GFR > 60 (59 - ) Glucose 72 mg/dL mg/dL (65-105) Calcium 8.1 mg/dL L mg/dL (8.4-10.2) Patient hx anesthesia problems: none Family hx anesthesia problems: none PMFSH Past Medical History Medical History (Updated 12/23/19 @ 10:36 by Jignesh Gibson MD) Cancer of right breast (~2017) Status post lumpectomy, chemotherapy, and radiation. 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 Morbid obesity Surgical History Surgical History (Updated 12/20/19 @ 17:18 by Leeroy Guzmán MD) History of fusion of cervical spine C5-C6 fusion after fracture. History of hernia repair History of lumpectomy of right breast For breast cancer. History of permanent cardiac pacemaker placement History of total hysterectomy with bilateral salpingo-oophorectomy (BSO) Status post debridement Left heel wound debridement. Family History Family History Father Congestive heart failure Heart disease Sibling Diabetes mellitus Mother Breast cancer Sibling Heart disease
[2019-12-24] MEDS: LACTATED RINGERS 1,000 ML 150 ML IV CONT (10:08)
[2019-12-24] MEDS: BENZOCAINE (*SP) 60 ML SPRAY CAN (HURRICAINE) 1 SPRAY MUCOUS MEM (10:33)
--- NOTE | 2019-12-24 11:12 | SUR.PHASEII ---
Dr. Messina aware of elevated BP. Ok to transfer to floor.
--- NOTE | 2019-12-24 11:28 | PC.NURSE ---
Returned from GI Lab.
--- NOTE | 2019-12-24 14:07 | P.PNIM_ITS ---
Progress Note: A&P Assessment and Plan (1) Hematemesis: Code(s): K92.0 - Hematemesis Status: Acute Assessment and Plan: * severe hematemesis * central line placed * iv protonix bid * restart clear diet * restart oral medications (2) Constipation: Code(s): K59.00 - Constipation, unspecified Status: Resolved Assessment and Plan: * (3) Dehydration: Code(s): E86.0 - Dehydration Status: Resolved Assessment and Plan: * discontinue fluids (4) Elevated troponin: Code(s): R79.89 - Other specified abnormal findings of blood chemistry Status: Acute Assessment and Plan: * trop in am elevatedin light of GI bleed (5) Leukocytosis: Qualifiers: Leukocytosis type: other Qualified Code(s): D72.828 - Other elevated white blood cell count Code(s): D72.829 - Elevated white blood cell count, unspecified Status: Acute Assessment and Plan: * ? breast cancer and wcc runs high ? stress reaction ? sepsis ordered lactate and fluids and BC . * Wcc normal after fluid hydration (6) Respiratory insufficiency: Code(s): R06.89 - Other abnormalities of breathing Status: Resolved Assessment and Plan: * Pulmonary embolism not likely as she has been on Eliquis. 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 (8) Hypertension: Code(s): I10 - Essential (primary) hypertension Status: Acute Assessment and Plan: * Blood pressures is high restart oral medications Subjective Date/time seen: 12/24/19 14:07 Interval history: Lang is a chronically debilitated, morbidly obese 74-year-old female who presented to the emergency department earlier today via EMS from home for evaluation of epigastric pain and vomiting. Pt having hematemesis went down for EGD found to have gastric ulcer. Pt had central line placed for hypotension pt is going to IMU. 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 found in EGD Pt had rpt EGD today. Pt looks alot better, start clear diet and oral medications to restart. Pt feels thirsty. Review of Systems Review of Systems: All systems reviewed & are unremarkable except as noted in HPI and below Exam Narrative: Exam Narrative: Pt very tired Large lady RRR chest is clear Abdo soft non tender Legs non edmatous Objective Data Vital Signs Vital Signs: Vital Signs - 24 hr 12/23/19 16:00 12/23/19 20:00 12/23/19 21:58 Temperature 36.6 C 36.9 C Pulse Rate 67 67 69 Respiratory Rate 20 20 20 Blood Pressure 152/66 H 161/80 H Pulse Oximetry 97 97 100 12/24/19 06:00 0
--- NOTE | 2019-12-24 14:07 | PM.IMPN ---
Progress Note: A&P Assessment and Plan (1) Hematemesis: Code(s): K92.0 - Hematemesis Status: Acute Assessment and Plan: severe hematemesis central line placed iv protonix bid restart clear diet restart oral medications (2) Constipation: Code(s): K59.00 - Constipation, unspecified Status: Resolved Assessment and Plan: (3) Dehydration: Code(s): E86.0 - Dehydration Status: Resolved Assessment and Plan: discontinue fluids (4) Elevated troponin: Code(s): R79.89 - Other specified abnormal findings of blood chemistry Status: Acute Assessment and Plan: trop in am elevatedin light of GI bleed (5) Leukocytosis: Qualifiers: Leukocytosis type: other Qualified Code(s): D72.828 - Other elevated white blood cell count Code(s): D72.829 - Elevated white blood cell count, unspecified Status: Acute Assessment and Plan: ? breast cancer and wcc runs high ? stress reaction ? sepsis ordered lactate and fluids and BC . Wcc normal after fluid hydration (6) Respiratory insufficiency: Code(s): R06.89 - Other abnormalities of breathing Status: Resolved Assessment and Plan: Pulmonary embolism not likely as she has been on Eliquis. 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 (8) Hypertension: Code(s): I10 - Essential (primary) hypertension Status: Acute Assessment and Plan: Blood pressures is high restart oral medications Subjective Date/time seen: 12/24/19 14:07 Interval history: Lang is a chronically debilitated, morbidly obese 74-year-old female who presented to the emergency department earlier today via EMS from home for evaluation of epigastric pain and vomiting. Pt having hematemesis went down for EGD found to have gastric ulcer. Pt had central line placed for hypotension pt is going to IMU. 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 found in EGD Pt had rpt EGD today. Pt looks alot better, start clear diet and oral medications to restart. Pt feels thirsty. Review of Systems Review of Systems: All systems reviewed & are unremarkable except as noted in HPI and below Exam Narrative: Exam Narrative: Pt very tired Large lady RRR chest is clear Abdo soft non tender Legs non edmatous Objective Data Vital Signs Vital Signs: Vital Signs - 24 hr 12/23/19 16:00 12/23/19 20:00 12/23/19 21:58 Temperature 36.6 C 36.9 C Pulse Rate 67 67 69 Respiratory Rate 20 20 20 Blood Pressure 152/66 H 161/80 H Pulse Oximetry 97 97 100 12/24/19 06:00 12/24/19 10:06 12/24/19 10:44 Temperature 36.7 C 36.8 C Pulse Rate 61 63 61 Respiratory Rate 18 19 Blood Pressure 153/95 H 158/71 H 157/88 H Pulse Oximetry 100 100 100 12/24/19 10:54 12/24/19 11:04 Temperature Pulse Rate 70 70 Respiratory Rate 19 19 Blood Pressure 189/82 H 194/70 H Pulse Oximetry 98 98 Intake/Output Intake/Output: Intake & Output 12/21/19 12/22/19 12/23/19 12/24/19 23:59 23:59 23:59 23:59 Intake Total 2780 2950 2850 1000 Output Total 3925 900 801 Balance -1145 0 9 1000 Meds/Results Medications: Active Medications Generic Name Dose Route Start Last Admin Trade Name Freq PRN Re
[2019-12-24] MEDS: polyethylene glycoL 3350 17 GM POWD.PACK PO (15:05)
[2019-12-24] MEDS: calcitrioL 0.25 MCG CAPSULE PO (15:05)
[2019-12-24] MEDS: METOPROLOL TARTRATE 12.5 MG TABLET PO (15:06)
[2019-12-24] MEDS: DOCUSATE SODIUM 100 MG CAPSULE PO (15:07)
[2019-12-24] MEDS: LETROZOLE (*CHEMO) 2.5 MG TABLET PO (15:07)
[2019-12-24] MEDS: dilTIAZem HCL CD 180 MG CAP.ER.24H PO (17:10)
[2019-12-24] MEDS: GABAPENTIN 300 MG CAPSULE PO (21:04)
[2019-12-25 06:00] VITALS: BP 127/58; PULSE 59; RESP 18; TEMP 36.8; O2SAT 92
[2019-12-25] MEDS: DOCUSATE SODIUM 100 MG CAPSULE PO (08:25)
[2019-12-25] MEDS: calcitrioL 0.25 MCG CAPSULE PO (08:25)
[2019-12-25] MEDS: FUROSEMIDE 40 MG TABLET PO (08:26)
[2019-12-25] MEDS: FLUTICASONE PROPIONATE 0.05% NA SPR 16 GM BTL (*BKC) 2 SPRAY NASAL (08:26)
[2019-12-25 08:28] VITALS: PULSE 49
[2019-12-25] MEDS: LETROZOLE (*CHEMO) 2.5 MG TABLET PO (08:29)
[2019-12-25] MEDS: PANTOPRAZOLE SODIUM IV 40 MG VIAL IV PUSH ×2 (08:30→20:03)
[2019-12-25] MEDS: polyethylene glycoL 3350 17 GM POWD.PACK PO (08:30)
[2019-12-25] MEDS: MUPIROCIN 2% OINT 22 GM TUBE 1 APPLIC TOPICAL ×2 (08:30→20:03)
[2019-12-25] MEDS: POTASSIUM CHLORIDE 20 MEQ TABLET.ER PO (08:31)
--- NOTE | 2019-12-25 08:34 | WPDANESPN ---
Anes - Prog Note Post-Op Date/Time: 12/25/19 08:34 Cardiovascular status: normal Respiratory status: normal Airway patency: baseline Mental status: other (mental status changes from baseline according to RN. Cox at bedside. ) Post-Op hydration status: normal Vital Signs: Last Vital Signs Temp 36.8 C 12/25/19 06:00 Pulse 49 L 12/25/19 08:28 Resp 18 12/25/19 06:00 BP 127/58 L 12/25/19 06:00 Pulse Ox 92 12/25/19 06:00 I/O: Intake & Output 12/24/19 12/25/19 12/25/19 23:59 07:59 15:59 Intake Total 930 100 Balance 930 100 Laboratory Tests 12/24/19 05:32 12/24/19 05:32 Post-procedural complaints: none Patient Feedback: Patient satisfied with anesthetic care.
--- NOTE | 2019-12-25 11:36 | WPDGIPROGNO ---
Progress Note: A&P Assessment and Plan (1) Partial gastric outlet obstruction: Code(s): K31.1 - Adult hypertrophic pyloric stenosis Status: Acute Assessment and Plan: repeat EGD showed some improvement, no more vomiting and tolerating liquid diet no more report of bleeding due to duodenal ulcer in bulb, also had gastric ulcers continue with ppi bid and avoid nsaids (2) Duodenal ulcer: Code(s): K26.9 - Duodenal ulcer, unspecified as acute or chronic, without hemorrhage or perforation Status: Acute Assessment and Plan: on ppi juan c-test negative for H pylori (3) Hematemesis: Code(s): K92.0 - Hematemesis Status: Acute Assessment and Plan: stable hemoglobin now, continue to monitor (4) Morbid obesity: Code(s): E66.01 - Morbid (severe) obesity due to excess calories Status: Acute (5) History of permanent cardiac pacemaker placement: Code(s): Z95.0 - Presence of cardiac pacemaker Status: Acute Subjective Date/time seen: 12/25/19 11:36 Interval history: I am covering for Dr Guzmán. no more bleeding and tolerating liquid diet. She is resting and sleeping now, complaining of discomfort neck in site of central line. Hb has been stable. Review of Systems Review of Systems: All systems reviewed & are unremarkable except as noted in HPI and below Exam Const: General: no acute distress Other: Obese white female laying in bed HENMT: Mouth: Yes moist mucous membranes Eyes: Sclera: sclerae normal Pupils: Equal, round and reactive pupils present Neck: Neck: supple and no JVD Resp: Effort & Inspection: normal respiratory effort Auscultation: clear to auscultation bilaterally Cardio: Rate: regular rate GI: GI Palp: Yes Soft to palpation, No Firmness to palpation present (GI) and No Tenderness to palpation present (GI) Auscultation: normal bowel sounds Skin: General skin exam: normal color Neuro: Cranial nerves: Yes Equal, round and reactive pupils present Cognition (Neuro): normal cognition Extrem: Other: Distal pulses are adequate in all 4 limbs. Psych: Affect: Anxious affect present Objective Data Vital Signs Vital Signs: Vital Signs - 24 hr 12/24/19 14:45 12/24/19 15:06 12/24/19 21:58 Temperature 97.6 F 97.8 F Pulse Rate 72 62 56 L Respiratory Rate 22 H 20 Blood Pressure 151/59 H 135/57 L Pulse Oximetry 90 99 12/24/19 22:30 12/24/19 22:33 12/25/19 06:00 Temperature 98.2 F Pulse Rate 51 L 49 L 59 L Respiratory Rate 18 Blood Pressure 137/43 L 127/58 L Pulse Oximetry 92 12/25/19 08:28 Temperature Pulse Rate 49 L Respiratory Rate Blood Pressure Pulse Oximetry Intake/Output Intake/Output: Intake & Output 12/22/19 12/23/19 12/24/19 12/25/19 23:59 23:59 23:59 23:59 Intake Total 2950 2850 1930 820 Output Total 900 801 Balance 2049 2048 1930 820 Meds/Results Medications: Active Medications Generic Name Dose Route Start Last Admin Trade Name Freq PRN Reason Stop Dose Admin Calcitriol 0.25 mcg 12/21/19 09:00 12/25/19 08:25 Rocaltrol PO 0.25 mcg DAILY GREG Administration Diltiazem HCl 180 mg 12/20/19 21:50 12/24/19 17:10 Cardizem Cd PO 180 mg QPM GREG Administration Docusate Sodium 100 mg 12/21/19 09:00 12/25/19 08:25 Colace Capsule PO 100 mg DAILY GREG Administration Fluticasone Propionate 2 spray 12/21/19 09:00 12/25/19 08:26 Flonase 0.05% Nasal [place] NASAL 2 spray DAILY GREG Administration Furosemide 40 mg 12/25/19 09:00 12/25/19 08:26 Lasix Tablet PO 40 mg DAILY GREG Administration Gabapentin 300 mg 12/20/19 21:50 12/24/19 21:04 Neurontin PO 300 mg HS GREG Administration Hydralazine HCl 5 mg 12/22/19 11:36 Apresoline Hcl Inj IV PUSH Q8H PRN Blood Pressure - High Letrozole 2.5 mg 12/21/19 09:00 12/25/19 08:29 Femara PO 2.5 mg DAILY GREG Administration Lidocaine HCl 0.3 ml
[2019-12-25 14:00] VITALS: BP 139/50; PULSE 59; RESP 20; TEMP 36.5; O2SAT 100
--- NOTE | 2019-12-25 14:33 | PM.IMPN ---
Progress Note: A&P Assessment and Plan (1) Hematemesis: Code(s): K92.0 - Hematemesis Status: Acute Assessment and Plan: Severe hematemesis resolved central line placed iv protonix bid restart clear diet restart oral medications (2) Constipation: Code(s): K59.00 - Constipation, unspecified Status: Resolved Assessment and Plan: (3) Dehydration: Code(s): E86.0 - Dehydration Status: Resolved Assessment and Plan: discontinue fluids (4) Elevated troponin: Code(s): R79.89 - Other specified abnormal findings of blood chemistry Status: Acute Assessment and Plan: trop in am elevatedin light of GI bleed (5) Leukocytosis: Qualifiers: Leukocytosis type: other Qualified Code(s): D72.828 - Other elevated white blood cell count Code(s): D72.829 - Elevated white blood cell count, unspecified Status: Acute Assessment and Plan: ? breast cancer and wcc runs high ? stress reaction ? sepsis ordered lactate and fluids and BC . Wcc normal after fluid hydration (6) Respiratory insufficiency: Code(s): R06.89 - Other abnormalities of breathing Status: Resolved Assessment and Plan: Pulmonary embolism not likely as she has been on Eliquis. 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 (8) Hypertension: Code(s): I10 - Essential (primary) hypertension Status: Acute Assessment and Plan: Restart oral medications Subjective Date/time seen: 12/25/19 14:33 Interval history: Lang is a chronically debilitated, morbidly obese 74-year-old female who presented to the emergency department earlier today via EMS from home for evaluation of epigastric pain and vomiting. Pt having hematemesis went down for EGD found to have gastric ulcer. Pt had central line placed for hypotension. 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 found in EGD Pt had rpt EGD. Pt looks alot better, started on liquid diet. Complains of pain near central line. Review of Systems Review of Systems: All systems reviewed & are unremarkable except as noted in HPI and below Exam Narrative: Exam Narrative: More alert, central line in situ Large lady RRR chest is clear Abdo soft non tender Legs non edmatous Objective Data Vital Signs Vital Signs: Vital Signs - 24 hr 12/24/19 14:45 12/24/19 15:06 12/24/19 21:58 Temperature 36.4 C 36.6 C Pulse Rate 72 62 56 L Respiratory Rate 22 H 20 Blood Pressure 151/59 H 135/57 L Pulse Oximetry 90 99 12/24/19 22:30 12/24/19 22:33 12/25/19 06:00 Temperature 36.8 C Pulse Rate 51 L 49 L 59 L Respiratory Rate 18 Blood Pressure 137/43 L 127/58 L Pulse Oximetry 92 12/25/19 08:28 Temperature Pulse Rate 49 L Respiratory Rate Blood Pressure Pulse Oximetry Intake/Output Intake/Output: Intake & Output 12/22/19 12/23/19 12/24/19 12/25/19 23:59 23:59 23:59 23:59 Intake Total 2950 2850 1930 820 Output Total 900 801 Balance 2049 2048 1930 820 Meds/Results Medications: Active Medications Generic Name Dose Route Start Last Admin Trade Name Freq PRN Reason Stop Dose Admin Calcitriol 0.25 mcg 12/21/19 09:00 12/25/19 08:25 Rocaltrol PO 0.25 mcg
[2019-12-25 18:00] VITALS: PULSE 58
[2019-12-25] MEDS: dilTIAZem HCL CD 180 MG CAP.ER.24H PO (18:01)
[2019-12-25] MEDS: GABAPENTIN 300 MG CAPSULE PO (20:03)
[2019-12-25 22:00] VITALS: BP 147/49; PULSE 53; RESP 18; TEMP 37; O2SAT 99
[2019-12-26] VITALS (8 sets, daily range): BP systolic 149–172; BP diastolic 51–62; PULSE 50–70; RESP 16–20; TEMP 36.6–37; O2SAT 94–100
[2019-12-26] MEDS: DOCUSATE SODIUM 100 MG CAPSULE PO (08:13)
[2019-12-26] MEDS: FLUTICASONE PROPIONATE 0.05% NA SPR 16 GM BTL (*BKC) 2 SPRAY NASAL (08:13)
[2019-12-26] MEDS: calcitrioL 0.25 MCG CAPSULE PO (08:13)
[2019-12-26] MEDS: LETROZOLE (*CHEMO) 2.5 MG TABLET PO (08:14)
[2019-12-26] MEDS: FUROSEMIDE 40 MG TABLET PO (08:14)
[2019-12-26] MEDS: MUPIROCIN 2% OINT 22 GM TUBE 1 APPLIC TOPICAL ×2 (08:15→20:27)
[2019-12-26] MEDS: polyethylene glycoL 3350 17 GM POWD.PACK PO (08:15)
[2019-12-26] MEDS: POTASSIUM CHLORIDE 20 MEQ TABLET.ER PO (08:15)
[2019-12-26] MEDS: PANTOPRAZOLE SODIUM IV 40 MG VIAL IV PUSH ×2 (08:15→20:26)
--- NOTE | 2019-12-26 11:42 | WPDGIPROGNO ---
Progress Note: A&P Assessment and Plan (1) Duodenal ulcer: Code(s): K26.9 - Duodenal ulcer, unspecified as acute or chronic, without hemorrhage or perforation Status: Acute Assessment and Plan: on ppi, no more bleeding with stable hb now juan c-test negative for H pylori (2) Acute blood loss anemia: Code(s): D62 - Acute posthemorrhagic anemia Status: Acute Assessment and Plan: hb stable last 48 hours (3) Partial gastric outlet obstruction: Code(s): K31.1 - Adult hypertrophic pyloric stenosis Status: Acute Assessment and Plan: due to duodenal ulcer in bulb, also had gastric ulcers continue with ppi bid and avoid nsaids will advance soft diet as tolerated, no more N/V or pain. (4) Hematemesis: Code(s): K92.0 - Hematemesis Status: Acute Assessment and Plan: stable hemoglobin now, continue to monitor (5) Morbid obesity: Code(s): E66.01 - Morbid (severe) obesity due to excess calories Status: Acute (6) History of permanent cardiac pacemaker placement: Code(s): Z95.0 - Presence of cardiac pacemaker Status: Acute Subjective Date/time seen: 12/26/19 11:42 Interval history: no more nausea or vomiting, she is hungry and would like to eat more, no abdominal pain and no more report of bleeding Review of Systems Review of Systems: All systems reviewed & are unremarkable except as noted in HPI and below Exam Const: General: no acute distress Other: Obese white female laying in bed HENMT: Mouth: Yes moist mucous membranes Eyes: Sclera: sclerae normal Pupils: Equal, round and reactive pupils present Neck: Neck: supple and no JVD Resp: Effort & Inspection: normal respiratory effort Auscultation: clear to auscultation bilaterally Cardio: Rate: regular rate GI: GI Palp: Yes Soft to palpation, No Firmness to palpation present (GI) and No Tenderness to palpation present (GI) Auscultation: normal bowel sounds Skin: General skin exam: normal color Neuro: Cranial nerves: Yes Equal, round and reactive pupils present Cognition (Neuro): normal cognition Extrem: Other: Distal pulses are adequate in all 4 limbs. Psych: Affect: Anxious affect present Objective Data Vital Signs Vital Signs: Vital Signs - 24 hr 12/25/19 14:00 12/25/19 18:00 12/25/19 22:00 Temperature 97.7 F 98.6 F Pulse Rate 59 L 58 L 53 L Respiratory Rate 20 18 Blood Pressure 139/50 L 147/49 H Pulse Oximetry 100 99 12/26/19 06:00 12/26/19 08:00 12/26/19 08:14 Temperature 97.8 F Pulse Rate 50 L 56 L 52 L Respiratory Rate 16 16 Blood Pressure 149/56 H Pulse Oximetry 100 100 Intake/Output Intake/Output: Intake & Output 12/23/19 12/24/19 12/25/19 12/26/19 23:59 23:59 23:59 23:59 Intake Total 2850 1930 1890 540 Output Total 801 50 Balance 2049 1930 1890 490 Meds/Results Medications: Active Medications Generic Name Dose Route Start Last Admin Trade Name Freq PRN Reason Stop Dose Admin Calcitriol 0.25 mcg 12/21/19 09:00 12/26/19 08:13 Rocaltrol PO 0.25 mcg DAILY GREG Administration Diltiazem HCl 180 mg 12/20/19 21:50 12/25/19 18:01 Cardizem Cd PO 180 mg QPM GREG Administration Docusate Sodium 100 mg 12/21/19 09:00 12/26/19 08:13 Colace Capsule PO 100 mg DAILY GREG Administration Fluticasone Propionate 2 spray 12/21/19 09:00 12/26/19 08:13 Flonase 0.05% Nasal [place] NASAL 2 spray DAILY GREG Administration Furosemide 40 mg 12/25/19 09:00 12/26/19 08:14 Lasix Tablet PO 40 mg DAILY GREG Administration Gabapentin 300 mg 12/20/19 21:50 12/25/19 20:03 Neurontin PO 300 mg HS GREG Administration Hydralazine HCl 5 mg 12/22/19 11:36 Apresoline Hcl Inj IV PUSH Q8H PRN Blood Pressure - High Letrozole 2.5 mg 12/21/19 09:00 12/26/19 08:14 Femara PO 2.5 mg DAILY GREG Administration Lidocaine HCl 0.3 ml 12/24/19 10:00 Xylocain
--- NOTE | 2019-12-26 14:16 | P.PNIM_ITS ---
Progress Note: A&P Assessment and Plan (1) Hematemesis: Code(s): K92.0 - Hematemesis Status: Acute Assessment and Plan: * Severe hematemesis resolved * central line placed * iv protonix bid * on clear diet, advance as directed * restart oral medications (2) Constipation: Code(s): K59.00 - Constipation, unspecified Status: Resolved Assessment and Plan: (3) Dehydration: Code(s): E86.0 - Dehydration Status: Resolved Assessment and Plan: * discontinue fluids (4) Elevated troponin: Code(s): R79.89 - Other specified abnormal findings of blood chemistry Status: Acute Assessment and Plan: * trop in am elevatedin light of GI bleed (5) Leukocytosis: Qualifiers: Leukocytosis type: other Qualified Code(s): D72.828 - Other elevated white blood cell count Code(s): D72.829 - Elevated white blood cell count, unspecified Status: Acute Assessment and Plan: * ? breast cancer and wcc runs high ? stress reaction ? sepsis ordered lactate and fluids and BC . * Wcc normal after fluid hydration (6) Respiratory insufficiency: Code(s): R06.89 - Other abnormalities of breathing Status: Resolved Assessment and Plan: * Pulmonary embolism not likely as she has been on Eliquis. 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 (8) Hypertension: Code(s): I10 - Essential (primary) hypertension Status: Acute Assessment and Plan: * Restart oral medications Subjective Date/time seen: 12/26/19 14:16 Interval history: Lang is a chronically debilitated, morbidly obese 74-year-old female who presented to the emergency department earlier today via EMS from home for evaluation of epigastric pain and vomiting. Pt having hematemesis went down for EGD found to have gastric ulcer. Pt had central line p laced for hypotension. 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 found in EGD. Pt had rpt EGD. Pt looks alot better, started on liquid diet. Complains of pain near central line. pt is a difficult stick keep central line in until discharge. advance diet as tolerated hopeful dc soon. Pt looks much much better alert talkative coherent Review of Systems Review of Systems: All systems reviewed & are unremarkable except as noted in HPI and below Gastrointestinal: Gastrointestinal: Denies abdominal pain, Denies bloating, Denies hematochezia, Denies dyspepsia, Denies diarrhea, Denies nausea, Denies odynophagia and Denies hematemesis Exam Narrative: Exam Narrative: More alert, central line in situ Large lady RRR chest is clear Abdo soft non tender Legs non edmatous Objective Data Vital Signs Vital
--- NOTE | 2019-12-26 14:16 | PM.IMPN ---
Progress Note: A&P Assessment and Plan (1) Hematemesis: Code(s): K92.0 - Hematemesis Status: Acute Assessment and Plan: Severe hematemesis resolved central line placed iv protonix bid on clear diet, advance as directed restart oral medications (2) Constipation: Code(s): K59.00 - Constipation, unspecified Status: Resolved Assessment and Plan: (3) Dehydration: Code(s): E86.0 - Dehydration Status: Resolved Assessment and Plan: discontinue fluids (4) Elevated troponin: Code(s): R79.89 - Other specified abnormal findings of blood chemistry Status: Acute Assessment and Plan: trop in am elevatedin light of GI bleed (5) Leukocytosis: Qualifiers: Leukocytosis type: other Qualified Code(s): D72.828 - Other elevated white blood cell count Code(s): D72.829 - Elevated white blood cell count, unspecified Status: Acute Assessment and Plan: ? breast cancer and wcc runs high ? stress reaction ? sepsis ordered lactate and fluids and BC . Wcc normal after fluid hydration (6) Respiratory insufficiency: Code(s): R06.89 - Other abnormalities of breathing Status: Resolved Assessment and Plan: Pulmonary embolism not likely as she has been on Eliquis. Hold eliquis pt is actively bleeding (7) [employer] current use of anticoagulant: Code(s): Z79.01 - [employer] (current) use of anticoagulants Status: Acute Assessment and Plan: Eliquis currently on hold given hematemesis. (8) Hypertension: Code(s): I10 - Essential (primary) hypertension Status: Acute Assessment and Plan: Restart oral medications Subjective Date/time seen: 12/26/19 14:16 Interval history: Lang is a chronically debilitated, morbidly obese 74-year-old female who presented to the emergency department earlier today via EMS from home for evaluation of epigastric pain and vomiting. Pt having hematemesis went down for EGD found to have gastric ulcer. Pt had central line placed for hypotension. 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 found in EGD. Pt had rpt EGD. Pt looks alot better, started on liquid diet. Complains of pain near central line. pt is a difficult stick keep central line in until discharge. advance diet as tolerated hopeful dc soon. Pt looks much much better alert talkative coherent Review of Systems Review of Systems: All systems reviewed & are unremarkable except as noted in HPI and below Gastrointestinal: Gastrointestinal: Denies abdominal pain, Denies bloating, Denies hematochezia, Denies dyspepsia, Denies diarrhea, Denies nausea, Denies odynophagia and Denies hematemesis Exam Narrative: Exam Narrative: More alert, central line in situ Large lady RRR chest is clear Abdo soft non tender Legs non edmatous Objective Data Vital Signs Vital Signs: Vital Signs - 24 hr 12/25/19 18:00 12/25/19 22:00 12/26/19 06:00 Temperature 37.0 C 36.6 C Pulse Rate 58 L 53 L 50 L Respiratory Rate 18 16 Blood Pressure 147/49 H 149/56 H Pulse Oximetry 99 100 12/26/19 08:00 12/26/19 08:14 Temperature Pulse Rate 56 L 52 L Respiratory Rate 16 Blood Pressure Pulse Oximetry 100 Intake/Output Intake/Output: Intake & Output 12/23/19 12/24/19 12/25/19 12/26/19 23:59 23:59 23:59 23:59 Intake Total 2850 19290 540 Output Total 801 50 Balance 2048 1929 1889 490
[2019-12-26] MEDS: dilTIAZem HCL CD 180 MG CAP.ER.24H PO (17:42)
[2019-12-26] MEDS: GABAPENTIN 300 MG CAPSULE PO (20:27)
--- NOTE | 2019-12-26 20:44 | PC.NURSE ---
rtj swelling noted at site flushes well with blood return on distal & medial ports but not proximal port. had Obdulia the house sup check with me and notifed laura monzon, cxr for placement ordered.
[2019-12-27 06:00] VITALS: BP 172/70; PULSE 50; RESP 20; TEMP 37.3; O2SAT 100
[2019-12-27 09:15] LABS: Hematocrit 32.5 % (37.0-47.0); Hemoglobin 10.4 g/dL (12.0-15.0); Mean Corpuscular Hemoglobin 28.4 pg (26-34); Mean Corpuscular Volume 88.8 fl (80-100); Mean Platelet Volume 10.6 fl (7.4-10.4); Platelet Count Result 261 k/mm3 (150-375); Red Blood Count 3.66 M/mm3 (4.2-5.4); Red Cell Distribution Width 15.3 % (11.5-14.5); White Blood Count 10.1 K/mm3 (4.5-10.0)
[2019-12-27 09:30] VITALS: PULSE 54
[2019-12-27] MEDS: LETROZOLE (*CHEMO) 2.5 MG TABLET PO (09:32)
[2019-12-27] MEDS: FUROSEMIDE 40 MG TABLET PO (09:32)
[2019-12-27] MEDS: calcitrioL 0.25 MCG CAPSULE PO (09:32)
[2019-12-27] MEDS: DOCUSATE SODIUM 100 MG CAPSULE PO (09:32)
[2019-12-27] MEDS: POTASSIUM CHLORIDE 20 MEQ TABLET.ER PO (09:32)
[2019-12-27 09:33] VITALS: PULSE 54
[2019-12-27] MEDS: polyethylene glycoL 3350 17 GM POWD.PACK PO (09:33)
[2019-12-27] MEDS: PANTOPRAZOLE SODIUM IV 40 MG VIAL IV PUSH (09:33)
[2019-12-27] MEDS: MUPIROCIN 2% OINT 22 GM TUBE 1 APPLIC TOPICAL (09:33)
[2019-12-27 09:37] LABS: Anion Gap 6 mmol/L (8-16); Blood Urea Nitrogen 7 mg/dL (7-17); Calcium 8.1 mg/dL (8.4-10.2); Carbon Dioxide 34 mmol/L (22-30); Chloride 100 mmol/L (98-107); Estimated CRCL calculation 74 ml/min; Estimated Glomerular Filt Rate > 60; Glucose 122 mg/dL (65-105); Potassium 3.1 mmol/L (3.4-5.0); Sodium 140 mmol/L (137-145)
--- NOTE | 2019-12-27 10:57 | WPDGIPROGNO ---
Progress Note: A&P Additional Plan Patient appears comfortable at rest. Tolerating diet. She denies abdominal pain. No evidence for any bleeding. Physical exam reveals her to be alert. Vital signs stable. HEENT exam unremarkable she is anicteric. Lungs reveal are clear. Abdomen is obese. Ventral hernia evident. Abdomen soft nontender otherwise. Labs reveal hemoglobin 10.4 stable. Impression 1. Duodenal ulcer. resolved outlet obstruction. Plan is for oral Protonix. Avoid nonsteroidal anti-inflammatory agents. Follow-up EGD in 2 months because of outlet obstruction. 2. Blood loss anemia. Now resolved. No additional bleeding noted. Plan is to continue PPI treatment of ulcer disease. Follow-up CBC after discharge encourage. 3. Gastric outlet obstruction. Now resolved. Patient on a soft diet this should continue after discharge. 4. Ventral hernia. Patient not felt to be a surgical candidate at this time. Treat symptomatically. 5. Obesity plan is for outpatient EGD in 2 months. Continue PPI therapy avoid nonsteroidal anti-inflammatory agents. Discharge when okay with primary care service Subjective Date/time seen: 12/27/19 10:57 Objective Data Vital Signs Vital Signs: Vital Signs - 24 hr 12/26/19 14:00 12/26/19 17:42 12/26/19 19:52 Temperature 98.6 F Pulse Rate 52 L 52 L Respiratory Rate 20 Blood Pressure 155/51 H Pulse Oximetry 98 94 12/26/19 22:00 12/27/19 06:00 12/27/19 09:30 Temperature 98.6 F 99.1 F Pulse Rate 50 L 50 L 54 L Respiratory Rate 20 20 Blood Pressure 172/62 H 172/70 H Pulse Oximetry 94 100 12/27/19 09:33 Temperature Pulse Rate 54 L Respiratory Rate Blood Pressure Pulse Oximetry Intake/Output Intake/Output: Intake & Output 12/24/19 12/25/19 12/26/19 12/27/19 23:59 23:59 23:59 23:59 Intake Total 1929 1890 1330 250 Output Total 310 100 Balance 1929 1889 1020 150 Meds/Results Medications: Active Medications Generic Name Dose Route Start Last Admin Trade Name Freq PRN Reason Stop Dose Admin Calcitriol 0.25 mcg 12/21/19 09:00 12/27/19 09:32 Rocaltrol PO 0.25 mcg DAILY GERG Administration Diltiazem HCl 180 mg 12/20/19 21:50 12/26/19 17:42 Cardizem Cd PO 180 mg QPM GREG Administration Docusate Sodium 100 mg 12/21/19 09:00 12/27/19 09:32 Colace Capsule PO 100 mg DAILY GREG Administration Fluticasone Propionate 2 spray 12/21/19 09:00 12/27/19 09:35 Flonase 0.05% Nasal [place] NASAL Not Given DAILY GREG Furosemide 40 mg 12/25/19 09:00 12/27/19 09:32 Lasix Tablet PO 40 mg DAILY GREG Administration Gabapentin 300 mg 12/20/19 21:50 12/26/19 20:27 Neurontin PO 300 mg HS GREG Administration Hydralazine HCl 5 mg 12/22/19 11:36 Apresoline Hcl Inj IV PUSH Q8H PRN Blood Pressure - High Letrozole 2.5 mg 12/21/19 09:00 12/27/19 09:32 Femara PO 2.5 mg DAILY GREG Administration Lidocaine HCl 0.3 ml 12/24/19 10:00 Xylocaine 2% Local Inj INTRADERM ONCE PRN to numb area Melatonin 3 mg 12/20/19 21:42 Melatonin PO HS PRN Insomnia Metoprolol Tartrate 12.5 mg 12/20/19 21:50 12/27/19 09:33 Lopressor PO Not Given BID [facility] Mupirocin 1 applic 12/21/19 21:00 12/27/19 09:33 Bactroban 2% Oint TOPICAL 1 applic Q12HR GREG Administration Ondansetron HCl 4 mg 12/20/19 11:42 12/21/19 05:22 Zofran Inj IV PUSH 4 mg Q4H PRN Administration Nausea Pantoprazole Sodium 40 mg 12/20/19 21:00 12/27/19 09:33 Protonix Iv IV PUSH 40 mg Q12HR GREG Administration Polyethylene Glycol 17 gm 12/21/19 09:00 12/27/19 09:33 Miralax PO 17 gm QAM GREG Administration Potassium Chloride 20 meq 12/25/19 09:00 12/27/19 09:32 Kcl Tablet PO 20 meq DAILY GREG Administration Radiology Results: ITS Impressions Abdomen/Pelvis CT 12/20/19 09:22 IMPRESSION: Cardiomegaly. Dual
--- NOTE | 2019-12-27 13:13 | P.DS_ITS ---
DS: Admitting Diagnosis Admitting Diagnosis Admitting Diagnosis: Vomiting and epigastric pain. DS: Discharge Diagnosis Discharge Diagnosis (1) Hematemesis: Code(s): K92.0 - Hematemesis Status: Acute Assessment and Plan: * Severe hematemesis resolved * central line placed * iv protonix bid * on clear diet, advance as directed * restart oral medications (2) Constipation: Code(s): K59.00 - Constipation, unspecified Status: Resolved Assessment and Plan: (3) Dehydration: Code(s): E86.0 - Dehydration Status: Resolved Assessment and Plan: * discontinue fluids (4) Elevated troponin: Code(s): R79.89 - Other specified abnormal findings of blood chemistry Status: Acute Assessment and Plan: * trop in am elevatedin light of GI bleed (5) Leukocytosis: Qualifiers: Leukocytosis type: other Qualified Code(s): D72.828 - Other elevated white blood cell count Code(s): D72.829 - Elevated white blood cell count, unspecified Status: Acute Assessment and Plan: * ? breast cancer and wcc runs high ? stress reaction ? sepsis ordered lactate and fluids and BC . * Wcc normal after fluid hydration (6) Respiratory insufficiency: Code(s): R06.89 - Other abnormalities of breathing Status: Resolved Assessment and Plan: * Pulmonary embolism not likely as she has been on Eliquis. * Hold eliquis pt is actively bleeding (7) [facility] current use of anticoagulant: Code(s): Z79.01 - [facility] (current) use of anticoagulants Status: Acute Assessment and Plan: * Eliquis currently on hold given hematemesis. (8) Hypertension: Code(s): I10 - Essential (primary) hypertension Status: Acute Assessment and Plan: * Restart oral medications DS: Summary Hospital Course Reason for hospitalization: Narrative: Ashley Croft is a chronically debilitated, morbidly obese 74-year-old female who presented to the emergency department earlier today via EMS from home for evaluation of epigastric pain and vomiting. She gets most of her care at [facility], but recently moved to the area and thus she was brought here for evaluation. She is not a very good historian, but from what I can gather she does have a history of breast cancer, chronic anemia, hypertension, and she also has a permanent pacemaker in place. She suffers from severe peripheral neuropathy and it sounds like she was hospitalized at [facility] in May 2019 with foot wounds. She was discharged to a long term for rehab, and moved over to [place] to lived with her daughter. She is now living in her own apartment and has home health come in for about 11 hours a day. She is nonambulatory and transfers with the use of a Carlos. In any regard, on Friday evening she began having epigastric discomfort and nausea. Initially she thought perhaps she had food poisoning however her daughter and son-in-law did not have similar symptoms despite eating the same food. She continues to
--- NOTE | 2019-12-27 13:13 | PM.DS ---
DS: Admitting Diagnosis Admitting Diagnosis Admitting Diagnosis: Vomiting and epigastric pain. DS: Discharge Diagnosis Discharge Diagnosis (1) Hematemesis: Code(s): K92.0 - Hematemesis Status: Acute Assessment and Plan: Severe hematemesis resolved central line placed iv protonix bid on clear diet, advance as directed restart oral medications (2) Constipation: Code(s): K59.00 - Constipation, unspecified Status: Resolved Assessment and Plan: (3) Dehydration: Code(s): E86.0 - Dehydration Status: Resolved Assessment and Plan: discontinue fluids (4) Elevated troponin: Code(s): R79.89 - Other specified abnormal findings of blood chemistry Status: Acute Assessment and Plan: trop in am elevatedin light of GI bleed (5) Leukocytosis: Qualifiers: Leukocytosis type: other Qualified Code(s): D72.828 - Other elevated white blood cell count Code(s): D72.829 - Elevated white blood cell count, unspecified Status: Acute Assessment and Plan: ? breast cancer and wcc runs high ? stress reaction ? sepsis ordered lactate and fluids and BC . Wcc normal after fluid hydration (6) Respiratory insufficiency: Code(s): R06.89 - Other abnormalities of breathing Status: Resolved Assessment and Plan: Pulmonary embolism not likely as she has been on Eliquis. Hold eliquis pt is actively bleeding (7) [facility] current use of anticoagulant: Code(s): Z79.01 - [facility] (current) use of anticoagulants Status: Acute Assessment and Plan: Eliquis currently on hold given hematemesis. (8) Hypertension: Code(s): I10 - Essential (primary) hypertension Status: Acute Assessment and Plan: Restart oral medications DS: Summary Hospital Course Reason for hospitalization: Narrative: Ashley Croft is a chronically debilitated, morbidly obese 74-year-old female who presented to the emergency department earlier today via EMS from home for evaluation of epigastric pain and vomiting. She gets most of her care at [facility], but recently moved to the area and thus she was brought here for evaluation. She is not a very good historian, but from what I can gather she does have a history of breast cancer, chronic anemia, hypertension, and she also has a permanent pacemaker in place. She suffers from severe peripheral neuropathy and it sounds like she was hospitalized at [facility] in May 2019 with foot wounds. She was [facility], and moved over to [place] to lived with her daughter. She is now living in her own apartment and has home health come in for about 11 hours a day. She is nonambulatory and transfers with the use of a Carlos. In any regard, on Friday evening she began having epigastric discomfort and nausea. Initially she thought perhaps she had food poisoning however her daughter and son-in-law did not have similar symptoms despite eating the same food. She continues to have epigastric discomfort that she has a difficult time describing, and has been experiencing belching, and also reports numerous episodes of dark emesis, occasionally described as coffee-ground emesis per her nurse here at the hospital. She has a difficult time describing her epigastric discomfort, but she states that it has been constant since the outset. She tells me that she has never had GERD, and does not describe any significant b
[2019-12-27 13:36] VITALS: O2SAT 92
[2019-12-27 14:00] VITALS: BP 149/58; PULSE 52; RESP 20; TEMP 36.4; O2SAT 100
== END 2019-12-27 16:05 | disposition home health service (06) | DRG 378 ==
LOC: ANHED 10:43 → ANH3MED 12:52 → ANHIMU 12-21 16:46 → ANH3MEDSUR 12-23 17:04
PROVIDERS: Family Medicine; Internal Medicine; Internal Medicine Gastroenterology; Physician Assistant; Admitting Provider Family Medicine; Emergency Provider Emergency Medicine; Visit Provider Family Medicine
PROC: 0DJ08ZZ Inspection of Upper Intestinal Tract, Via Natural or Artificial Opening Endoscopic (ICD-10-PCS; CPT 43235; principal; 2019-12-21 13:30)
DX: K25.0 Acute gastric ulcer with hemorrhage (principal); Z68.41 Body mass index [BMI] 40.0-44.9, adult; K31.1 Adult hypertrophic pyloric stenosis; D62 Acute posthemorrhagic anemia; E86.0 Dehydration; I10 Essential (primary) hypertension; E66.01 Morbid (severe) obesity due to excess calories; Z79.01 Long term (current) use of anticoagulants; Z87.891 Personal history of nicotine dependence; K59.00 Constipation, unspecified; K43.9 Ventral hernia without obstruction or gangrene; Z95.0 Presence of cardiac pacemaker; I48.91 Unspecified atrial fibrillation; E87.6 Hypokalemia; K26.3 Acute duodenal ulcer without hemorrhage or perforation
CPT/HCPCS: 36415; 36600; 51701; 71045; 71046; 74177; 80048; 80053; 81001; 82271; 82375; 82805; 83050; 83605; 83690; 83735; 83986; 84132; 84484; 85014; 85018; 85025; 85027; 85380; 85610; 85730; 86850; 86900; 86901; 87040; 87077; 87081; 87086; 93005; 93306; 93970; 96361; 96365; 96374; 96375; 96376; 97110; 97162; 97166; 97530; 97535; 99285; A9270; C1751; C9113; G0378; J0131; J0330; J0696; J2270; J2370; J2405; J2704; J3480; J7030; J7040; J7120; Q9967

== ENCOUNTER 2020-03-06 00:44 | Outpatient (CLI) | payer MEDICARE, SELFPAY ==
[2020-03-06 16:30] LABS: SARS-CoV-2 RNA PCR Negative
== END 2020-03-06 00:45 | disposition home or self-care (01) ==
LOC: ANHCOVIDDT 00:45
PROVIDERS: Visit Provider Internal Medicine Gastroenterology
DX: Z01.812 Encounter for preprocedural laboratory examination (principal); Z20.828 Contact with and (suspected) exposure to other viral communicable diseases
CPT/HCPCS: 87635; C9803; U0003

== ENCOUNTER 2020-03-08 00:51 | Day surgery (SDC) | payer MEDICARE, SELFPAY ==
[2020-02-29 16:08] VITALS: BMI 42.5
[2020-03-08] VITALS (7 sets, daily range): BP systolic 148–210; BP diastolic 72–102; PULSE 50; RESP 14–18; TEMP 36.6; O2SAT 98
--- NOTE | 2020-03-08 07:40 | WPDANESEPPF ---
Anes - Initial Pre Proc Eval Procedure: Operation Date: 03/08/20 10:00 Proposed Procedures p Esophagogastroduodenoscopy - Leeroy Guzmán MD Date/Time: 03/08/20 07:40 Surgeon: Leeroy Guzmán MD Pre Op Diagnosis: peptic ulcer, gastric ulcer Patient Data Age: 74 Gender: F Height: 1.55 m Weight: 102.2 kg Allergies Allergy/AdvReac Type Severity Reaction Status Date / Time No Known Allergies Allergy Verified 02/29/20 15:59 Home Medications Medication Instructions Recorded Confirmed Type apixaban 5 mg PO BID 12/20/19 02/29/20 History calcitriol 0.25 mcg PO DAILY 12/20/19 02/29/20 History diltiazem HCl [Cardizem CD] 180 mg PO DAILY 12/20/19 02/29/20 History fluticasone propionate 2 spray INTRANASAL PRN PRN 12/20/19 02/29/20 History furosemide 40 mg PO DAILY 12/20/19 02/29/20 History gabapentin 600 mg PO HS 12/20/19 02/29/20 History hydrocodone-acetaminophen 1 tablet PO Q6H PRN 12/20/19 02/29/20 History hydroxyzine pamoate 50 mg PO HS 12/20/19 02/29/20 History letrozole 2.5 mg PO DAILY 12/20/19 02/29/20 History melatonin 3 mg PO HS PRN 12/20/19 02/29/20 History metoprolol tartrate 12.5 mg PO BID 12/20/19 02/29/20 History mupirocin 1 applic TOPICAL BID 12/20/19 02/29/20 History potassium chloride 20 meq PO DAILY 12/20/19 02/29/20 History pregabalin 100 mg PO BID 12/20/19 02/29/20 History ECG: Date of Service: 12/20/19 Procedure(s): CA 12 lead EKG Accession Number(s): [id number] cc: ~ Measurements Intervals [place] Rate: 66 P: [place]: 0 QRS: -23 QRSD: 89 T: -72 QT: 406 QTc: 428 Interpretive Statements ATRIAL FIBRILLATION BORDERLINE R WAVE PROGRESSION, ANTERIOR LEADS BORDERLINE ST-T WAVE ABNORMALITY- DIFFUSE LEADS BASELINE ARTIFACT- I, II, III, AVR, AVL, AVF ABNORMAL ECG Electronically Signed On 12-20-2019 9:01:36 CDT by Matias Stiles D.O. Dictated By: Matias Stiles DO 12/20/19 0853 Patient hx anesthesia problems: none Family hx anesthesia problems: none [facility] Past Medical History Medical History (Updated 03/08/20 @ 08:50 by Hugo Shirley MD) Acute blood loss anemia Atrial fibrillation Cancer of right breast (~2017) Status post lumpectomy, chemotherapy, and radiation. Duodenal ulcer Hematemesis Hypercarbia Hypertension Iron deficiency anemia halfway current use of anticoagulant Patient believe she has a history of blood clot, she is uncertain if she has a history of atrial fibrillation. Mitral stenosis Morbid obesity Partial gastric outlet obstruction Pulmonary HTN severe - PA 62 mmHg Respiratory insufficiency Surgical History Surgical History (Updated 12/20/19 @ 17:18 by Leeroy Guzmán MD) History of fusion of cervical spine C5-C6 fusion after fracture. History of hernia repair History of lumpectomy of right breast For breast cancer. History of permanent cardiac pacemaker placement History of total hysterectomy with bilateral salpingo-oophorectomy (BSO) Status post debridement Left heel wound debridement. Family History Family History Father Congestive heart failure Heart disease Sibling Diabetes mellitus Mother Breast cancer Sibling Heart disease Social History Social History Social History: The patient is originally from [place], but moved to [place] in spring 2019 to live with her daughter however she is now living in her own apartment. She is nonambulatory and transfers with a Carlos. 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 She smoked upwards of 2 packs of cigarettes a day and quit in 2009. She denies alcohol and illicit substance use. Her on
--- NOTE | 2020-03-08 08:56 | WPDGICN ---
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 Plans for follow-up EGD at this time. Anticoagulation will be held briefly for the procedure. Continue proton pump inhibitor therapy avoid nonsteroidal anti-inflammatory agents. Further recommendations will be given after endoscopy today. (5) Duodenal ulcer: Code(s): K26.9 - Duodenal ulcer, unspecified as acute or chronic, without hemorrhage or perforation Status: Acute GI Consult Note Consult date/time: 03/08/20 08:56 HPI: Ashley Croft is a 74 year old female with a history of gastric outlet obstruction. She presents today for EGD. Patient underwent endoscopy 2 months ago with gastric outlet obstruction with a crater to ulcer noted in the duodenal bulb. She has subsequently been maintained on pantoprazole 40 mg p.o. b.i.d. she states she has vomited several times since last admission 2 months ago. She denies any abdominal pain. In general tolerates her diet. If she overeats she will sometimes become nauseated. She denies any abdominal pain. She denies any bleeding. Review of Systems Review of Systems: All systems reviewed & are unremarkable except as noted in HPI and below PMFSH Past Medical History Medical History (Updated 03/08/20 @ 08:50 by Hugo Shirley MD) Acute blood loss anemia Atrial fibrillation Cancer of right breast (~2017) Status post lumpectomy, chemotherapy, and radiation. 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 Mitral stenosis Morbid obesity Partial gastric outlet obstruction Pulmonary HTN severe - PA 62 mmHg Respiratory insufficiency Surgical History Surgical History (Updated 12/20/19 @ 17:18 by Leeroy Guzmán MD) History of fusion of cervical spine C5-C6 fusion after fracture. History of hernia repair History of lumpectomy of right breast For breast cancer. History of permanent cardiac pacemaker placement History of total hysterectomy with bilateral salpingo-oophorectomy (BSO) Status post debridement Left heel wound debridement. Family History Family History Father Congestive heart failure Heart disease Sibling Diabetes mellitus Mother Breast cancer Sibling Heart disease Social History Social History Social History: The patient is originally from [place], but moved to [place] in spring 2019 to live with her daughter however she is now living in her own apartment. She is nonambulatory and transfers with a Carlos. 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 She smoked upwards of 2 packs of cigarettes a day and quit in 2009. She denies alcohol and illicit substance use. Her only child, daughter Zoie Peguero, is her surrogate decision maker and she wishes to be a full code. Smoking packs per day: 1.5 Smoking cigarettes per day: 30.0 Smoking status: Former smoker Tobacco type: cigarettes Alcohol intake: former Substance use: never Substance use type: does not use Living arrangements: alone Spiritual care concerns: No Meds Home Medications and Allergies Home Medications Medication Instructions
--- NOTE | 2020-03-08 09:16 | SUR.PREOP ---
ATTEMPTED IV ACCESS X2 UNSUCCESSFULLY. 2ND RN IN TO OBTAIN IV ACCESS.
[2020-03-08] MEDS: LACTATED RINGERS 1,000 ML 150 ML IV CONT (09:27)
[2020-03-08] MEDS: BENZOCAINE (*SP) 60 ML SPRAY CAN (HURRICAINE) 1 SPRAY MUCOUS MEM (09:44)
[2020-03-08] MEDS: hydrALAZINE HCL 20 MG/ML VIAL 10 MG IV PUSH (10:25)
--- NOTE | 2020-03-08 10:50 | SUR.PHASEII ---
1025 DR. SALAS CALLED CONCERNING ELEVATED BY-PT DID NOT TAKE MEDS AT HOME THIS AM HYDRALAZINE 10MG IV GIVEN PER ORDER. 1045 DR. SALAS HERE TO SEE PATIENT BP IS 200/82, PT WILL BE DISCHARGED AND INSTRUCTED TO TAKE MEDS MAR ON ARRIVAL TO HOME.
--- NOTE | 2020-03-08 11:21 | SUR.PHASEII ---
1100 PT DISCHARGED, WAITING FOR BUS TO HOME WITH CAREGIVER. PT TRANSFERRED EARLIER FROM STRETCHER TO WHEELCHAIR WITH LIFT DEVICE FOR SAFETY.
--- NOTE | 2020-03-08 11:33 | SUR.PHASEII ---
1120 BUS IS HERE, PT AND CAREGIVER ESCORTED TO BUS.
== END 2020-03-08 11:00 | disposition home or self-care (01) ==
PROVIDERS: Visit Provider Internal Medicine Gastroenterology
PROC: 0DJ08ZZ Inspection of Upper Intestinal Tract, Via Natural or Artificial Opening Endoscopic (ICD-10-PCS; CPT 43235; principal; 2020-03-08 10:00)
DX: Z09 Encounter for follow-up examination after completed treatment for conditions other than malignant neoplasm (principal); Z87.11 Personal history of peptic ulcer disease; K31.1 Adult hypertrophic pyloric stenosis; I48.91 Unspecified atrial fibrillation; I10 Essential (primary) hypertension; D50.9 Iron deficiency anemia, unspecified; I05.0 Rheumatic mitral stenosis; I27.20 Pulmonary hypertension, unspecified; Z85.3 Personal history of malignant neoplasm of breast; Z92.21 Personal history of antineoplastic chemotherapy; Z92.3 Personal history of irradiation; E66.01 Morbid (severe) obesity due to excess calories; Z68.41 Body mass index [BMI] 40.0-44.9, adult; Z98.1 Arthrodesis status; Z87.891 Personal history of nicotine dependence; Z79.01 Long term (current) use of anticoagulants
CPT/HCPCS: 43239; 87081; J0360; J2001; J2704; J7120

== ENCOUNTER 2021-05-22 10:18 | Inpatient (IN) | payer MEDICARE, SELFPAY ==
[2021-05-22] VITALS (39 sets, daily range): BP systolic 146–177; BP diastolic 78–106; PULSE 61–78; RESP 16–26; TEMP 36.2–37.4; O2SAT 71–100; BMI 44.2
--- NOTE | ~2021-05-22 | XR_ITS ---
EXAMINATION: XR chest 1V portable DATE: 05/22/2021 11:11 INDICATION: Shortness of breath. TECHNIQUE: A single frontal view of the chest was obtained. COMPARISON: Chest single view 12/26/2019, CT abdomen and pelvis 12/20/2019 FINDINGS: There are lucencies in the superior lungs, consistent with emphysema. There are airspace op acities in the mid and lower lung zones. No pleural effusion or pneumothorax. Cardiomegaly is noted. There is a left chest wall pacer with leads in the right atrium and right ventricle. There are change s of anterior fusion procedure in cervical spine. IMPRESSION: 1. Airspace opacities in the mid and lower lung zone suspicious for pneumonia. 2. Emphysema. 3. Cardiomegaly. Reviewed, dictated and finalized at location B. [employer]
--- NOTE | 2021-05-22 10:31 | ECG_ITS ---
Measurements Intervals [place] Rate: 72 P: [place]: 0 QRS: 195 QRSD: 101 T: -83 QT: 433 QTc: 477 Interpretive Statements ATRIAL FIBRILLATION DELAYED PRECORDIAL R/S TRANSITION ST-T WAVE ABNORMALITY IN ANTEROLAT/INF LEADS- CONSIDER ISCHEMIA BASELINE ARTIFACT- AVF, V1-V3 ABNORMAL ECG Electronically Signed On 05-22-2021 11:33:50 CDL PROGRAM COORDINATOR by Matias Stiles D.O.
[2021-05-22 10:49] LABS: Basophils Percent Auto 0.3 % (0.2-1.2); Eosinophils Percent Auto 0.3 % (0-4.4); Hematocrit 53.5 % (37.0-47.0); Hemoglobin 17.1 g/dL (12.0-15.0); Immature Granulocyte Absolute 0.02 K/mm3 (0.00-0.031); Immature Granulocyte Percent A 0.6 % (0-0.5); Lymphocytes Absolute Auto 1.03 K/mm3 (0.9-3.2); Mean Corpuscular Volume 90.8 fl (80-100); Monocytes Absolute Auto 0.2 K/mm3 (0.1-0.6); Monocytes Percent Auto 6.3 % (2.6-8.5); Neutrophils Percent Auto 61.5 % (45.5-73.1); Platelet Count Result 175 k/mm3 (150-375); Red Blood Count 5.89 M/mm3 (4.2-5.4); Red Cell Distribution Width 15.3 % (11.5-14.5); White Blood Count 3.3 K/mm3 (4.5-10.0)
[2021-05-22 10:59] LABS: INR 1.1; Prothrombin Time 13.6 Seconds (11.1-14.7)
[2021-05-22 11:07] LABS: Alanine Aminotransferase 19 U/L (4-35); Albumin Level 3.5 g/dL (3.5-5.1); Alkaline Phosphatase 82 U/L (38-126); Anion Gap 10 mmol/L (8-16); Aspartate Amino Transferase 46 U/L (14-36); Bilirubin,Total 0.8 mg/dL (0.2-1.3); Blood Urea Nitrogen 18 mg/dL (7-17); Calcium 8.3 mg/dL (8.4-10.2); Carbon Dioxide 30 mmol/L (22-30); Chloride 98 mmol/L (98-107); Estimated CRCL calculation 60 ml/min; Estimated Glomerular Filt Rate > 60; Glucose 150 mg/dL (65-110); Potassium 3.4 mmol/L (3.4-5.0); Sodium 138 mmol/L (137-145)
--- NOTE | 2021-05-22 12:05 | ED.AMS ---
HPI - Altered Mental Status General Chief Complaint: Altered Mental Status Stated Complaint: increased confusion Time Seen by Provider: 05/22/21 10:53 History of Present Illness HPI narrative: 75-year-old female presenting to the emergency department for evaluation of altered mental status and shortness of breath. Patient states that she began feeling poorly approximately 1 week ago. Patient states that her primary complaint is confusion and increased fatigue. Patient states that last night she was unable to sleep well. Patient states when her home care nurse evaluated her today she was found to be altered and was advised to present to the emergency department for evaluation. Patient's pulse ox upon arrival to the emergency department was 85%. Patient does not believe she has exposure to COVID. Patient is not vaccinated. Related Data Home Medications Medication Instructions Recorded Confirmed apixaban 5 mg PO BID 12/20/19 02/29/20 calcitriol 0.25 mcg PO DAILY 12/20/19 02/29/20 diltiazem HCl [Cardizem CD] 180 mg PO DAILY 12/20/19 02/29/20 fluticasone propionate 2 spray INTRANASAL PRN PRN 12/20/19 02/29/20 furosemide 40 mg PO DAILY 12/20/19 02/29/20 gabapentin 600 mg PO HS 12/20/19 02/29/20 hydrocodone-acetaminophen 1 tablet PO Q6H PRN 12/20/19 02/29/20 hydroxyzine pamoate 50 mg PO HS 12/20/19 02/29/20 letrozole 2.5 mg PO DAILY 12/20/19 02/29/20 melatonin 3 mg PO HS PRN 12/20/19 02/29/20 metoprolol tartrate 12.5 mg PO BID 12/20/19 02/29/20 mupirocin 1 applic TOPICAL BID 12/20/19 02/29/20 potassium chloride 20 meq PO DAILY 12/20/19 02/29/20 pregabalin 100 mg PO BID 12/20/19 02/29/20 Allergies Allergy/AdvReac Type Severity Reaction Status Date / Time No Known Allergies Allergy Verified 03/08/20 09:20 Review of Systems Review of Systems: CONSTITUTIONAL: Denies fever, chills, or sweats. Does report exertional fatigue EYES: Denies visual changes, redness, or discharge. ENT: Denies rhinorrhea, congestion, sore throat, or otalgia. CARDIOVASCULAR: Denies chest pain, palpitations, or edema. RESPIRATORY: Denies cough or dyspnea. GASTROINTESTINAL: Denies abdominal pain, nausea, vomiting, or diarrhea. GENITOURINARY: Denies dysuria or hematuria. SKIN: Denies rash or itching. MUSCULOSKELETAL: Denies back pain, joint pain, or myalgia. NEUROLOGIC: Denies headache, numbness, or weakness. PSYCHIATRIC: Denies anxiety or depression. [facility] Past Medical History Medical History (Updated 05/22/21 @ 13:57 by Jamal Brown MD) Acute blood loss anemia Atrial fibrillation Cancer of right breast (~2017) Status post lumpectomy, chemotherapy, and radiation. Duodenal ulcer Hematemesis Hypercarbia Hypertension Iron deficiency anemia jordan man current use of anticoagulant Patient believe she has a history of blood clot, she is uncertain if she has a history of atrial fibrillation. Mitral stenosis Morbid obesity Partial gastric outlet obstruction Pulmonary HTN severe - PA 62 mmHg Respiratory insufficiency Surgical History Surgical History (Updated 12/20/19 @ 17:18 by Leeroy Guzmán MD) History of fusion of cervical spine C5-C6 fusion after fracture. History of hernia repair History of lumpectomy of right breast For breast cancer. History of permanent cardiac pacemaker placement History of total hysterectomy with bilateral salpingo-oophorectomy (BSO) Status post debridement Left heel wound debridement. Family History Family History Father Congestive heart failure Heart disease Sibling Diabetes mellitus Mother Breast cancer Sibling Heart disease Social History Social History Social History: The patient is originally from [place], but moved to [place] in spring 2019 to live with her daughter however she is now living in her own apartment. She is nonambulatory and transfers with a Carlos. 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
[2021-05-22 12:18] LABS: Add Urine Microscopic? YES; Appearance Urine Cloudy (Clear); Bacteria Urine 4+ /hpf; Bilirubin Urine Negative (Negative); Blood Urine 1+ (Negative); Color Urine Amber (Yellow); Glucose Urine UA Negative (Negative); Ketones Urine Negative (Negative); Leukocyte Esterase Ur 3+ LEU/UL (Negative); Nitrate Urine Negative (Negative); Protein Urine 3+ mg/dL (Negative); Specific Grav Ur 1.019 (1.001-1.035); WBC Urine >75 /hpf
--- NOTE | 2021-05-22 13:12 | PC.NURSE ---
Pt decreased to 2L NC at this time.
[2021-05-22 14:08] LABS: SARS-CoV-2 RNA PCR Positive
--- NOTE | 2021-05-22 18:45 | PC.NURSE ---
Pt updated on admission bed status. Given sip of water upon request. Denies any other needs at this time. Will update daughter as well.
--- NOTE | 2021-05-22 19:00 | PM.IMHP ---
H&P: HPI History of Present Illness Date/Time: 05/22/21 19:00 Chief Complaint: Confusion. Narrative: This is a chronically debilitated, morbidly obese 75-year-old female who is bed-bound with history of breast cancer, hypertension, anemia, neuropathy, peptic ulcers, and permanent pacemaker who presented to the emergency department earlier today via EMS from home for evaluation of confusion. She is not a very good historian and all she can tell me is that she has not felt well for about 5 to 7 days and that family members have had similar symptoms. She has been fatigued and sleeping more than usual. Per family report, she has seemed a bit confused over the past several days and the patient herself noticed that she was somewhat confused upon waking this morning. She initially attributed that to the fact that she slept poorly last night though she cannot tell me why she slept poorly. In the emergency department she tested positive for SARS-CoV-2 by PCR and she is being admitted in this setting. At the time my evaluation she has no complaints aside from mild shortness of breath. She also reports dysuria and strong smelling urine. She denies fever, chills, sweats, sinus congestion, sore throat, chest pain, pleuritic pain, nausea, vomiting, and diarrhea. She apparently was not vaccinated for COVID-19 and she has no known exposure to those positive for COVID to her knowledge. Review of Systems Review of Systems: Twelve systems were reviewed and are negative except for as per HPI. [facility] Past Medical History Medical History (Updated 05/22/21 @ 22:37 by Josefina Kerr PA-C) Atrial fibrillation Cancer of right breast (~2017) Status post lumpectomy, chemotherapy, and radiation. Duodenal ulcer Hypertension Iron deficiency anemia prison current use of anticoagulant Patient believe she has a history of blood clot, she is uncertain if she has a history of atrial fibrillation. Mitral stenosis Morbid obesity Partial gastric outlet obstruction Pulmonary HTN severe - PA 62 mmHg Respiratory insufficiency Surgical History Surgical History History of fusion of cervical spine C5-C6 fusion after fracture. History of hernia repair History of lumpectomy of right breast For breast cancer. History of permanent cardiac pacemaker placement History of total hysterectomy with bilateral salpingo-oophorectomy (BSO) Status post debridement Left heel wound debridement. Family History Family History Father Congestive heart failure Heart disease Sibling Diabetes mellitus Mother Breast cancer Sibling Heart disease Social History Social History (Updated 05/22/21 @ 22:24 by Josefina Kerr PA-C) Social History: The patient is originally from [place], but moved to [place] in spring 2019 to live with her daughter however she is now living in her own apartment. She is nonambulatory and transfers with a Carlos. 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 She smoked upwards of 2 packs of cigarettes a day and quit in 2009. She denies alcohol and illicit substance use. Her only child, daughter Zoie Peguero, is her surrogate decision maker and she wishes to be a full code. Smoking end date: 12/10/00 Meds Home Medications and Allergies Home Medications Medication Instructions Recorded Confirmed Type apixaban 5 mg PO BID 12/20/19 02/29/20 History calcitriol 0.25 mcg PO DAILY 12/20/19 02/29/20 History diltiazem HCl [Cardizem CD] 180 mg PO DAILY 12/20/19 02/29/20 History fluticasone propionate 2 spray INTRANASAL PRN PRN 12/20/19 02/29/20 History furosemide 40 mg PO DAILY 12/20/19 02/29/20 History gabapentin 600 mg PO HS 12/20/19 02/29/20 History hydrocodone-acetaminophen 1 tablet PO Q6H PRN 12/20/19 02/29/20 History hydroxyzine pamoate 50 mg PO HS 12/20/19 02/29/20 History letrozole 2.5 mg PO DAILY 12/20/1902/10
--- NOTE | 2021-05-22 22:18 | ADMGEN ---
This patient, Ashley Croft, was admitted to [facility] Surg Room 333-01. Patient/family oriented to hospital policies and general routines including ID bracelet, bed and alarms, visiting hours, pain management, procedures, bathroom and other care routines, personal items, smoking policy, room service/diet, and visiting hours. Information on how to activate the Rapid Response Team has been discussed. Patient/Family are encouraged to report perceived risks to care and to ask questions if they do not understand what they are told or what they should do.
[2021-05-22 23:37] LABS: Alanine Aminotransferase 18 U/L (4-35); Estimated CRCL calculation 59 ml/min; Estimated Glomerular Filt Rate > 60
[2021-05-22 23:41] LABS: Prothrombin Time 13.3 Seconds (11.1-14.7)
[2021-05-23 00:43] LABS: Alveolar/Arterial O2 Gradient 82.6 mmHg; Base Excess ABG 5.7 mEq/l (+/-2.0); Carboxyhemoglobin 0.6 % THb (0-2.0); Fractional Inspired Oxygen 28 %; HCO3 ABG 30.5 mEq/l (22.0-26.0); Methemoglobin ABG 0.3 %THb (0-1.5); Oxygen Saturation ABG 93.5 % (95.0-100.0); Oxyhemoglobin 91.5 % THb (90.0-100.0); PCO2 ABG 44.4 mmHg (35.0-45.0); PO2 ABG 64.7 mmHg (80.0-100.0); PO2 FiO2 Ratio Arterial Blood 2.31 %; Reduced Hemoglobin 7.6 %THb (0-5.0); Total Hemoglobin 17.1 g/dL (12.0-18.0); pH ABG 7.455 (7.350-7.450)
[2021-05-23] MEDS: REMDESIVIR 200 MG/NS 250 ML 200 MG/250 ML BAG 250 MG IVPB (00:43)
[2021-05-23] MEDS: SODIUM CHLORIDE 0.9% IV 1,000 ML 100 ML IV CONT (00:43)
[2021-05-23 00:46] LABS: Device NASAL CANNULA; Modified Allen's Test Pass; Site Drawn RIGHT RADIAL
[2021-05-23 02:00] VITALS: BP 165/79; PULSE 59; RESP 20; TEMP 36.3; O2SAT 95
[2021-05-23 04:00] VITALS: BP 162/88; PULSE 73; RESP 18; TEMP 36.3; O2SAT 95
[2021-05-23 07:35] LABS: Hematocrit 52.5 % (37.0-47.0); Mean Corpuscular HGB Conc 32.4 g/dl (32-36); Mean Corpuscular Hemoglobin 28.5 pg (26-34); Mean Corpuscular Volume 88.1 fl (80-100); Mean Platelet Volume 10.8 fl (7.4-10.4); Platelet Count Result 195 k/mm3 (150-375); Red Blood Count 5.96 M/mm3 (4.2-5.4); Red Cell Distribution Width 14.5 % (11.5-14.5); White Blood Count 2.5 K/mm3 (4.5-10.0)
[2021-05-23 08:00] VITALS: BP 145/88; PULSE 65; RESP 20; TEMP 35.6; O2SAT 94; O2SAT 96
[2021-05-23 08:08] LABS: INR 1.1; Prothrombin Time 13.6 Seconds (11.1-14.7)
[2021-05-23 08:19] LABS: Alanine Aminotransferase 17 U/L (4-35); Albumin Level 3.4 g/dL (3.5-5.1); Alkaline Phosphatase 79 U/L (38-126); Anion Gap 9 mmol/L (8-16); Aspartate Amino Transferase 41 U/L (14-36); Bilirubin,Total 0.6 mg/dL (0.2-1.3); Blood Urea Nitrogen 20 mg/dL (7-17); CRP 3.4 mg/dL (<1.0); Calcium 8.5 mg/dL (8.4-10.2); Carbon Dioxide 29 mmol/L (22-30); Chloride 101 mmol/L (98-107); Estimated CRCL calculation 67 ml/min; Estimated Glomerular Filt Rate > 60; Glucose 151 mg/dL (65-110); Lactate Dehydrogenase 870 U/L (313-618); Magnesium 1.9 mg/dL (1.6-2.3); Potassium 3.6 mmol/L (3.4-5.0); Sodium 139 mmol/L (137-145)
[2021-05-23] MEDS: ENOXAPARIN 40 MG/0.4 ML SYRINGE SUB-Q (09:01)
[2021-05-23 11:41] VITALS: BP 154/79; PULSE 67; RESP 21; TEMP 35.8; O2SAT 95
[2021-05-23] MEDS: SODIUM CHLORIDE 0.9% IV 1,000 ML 100 ML (13:00)
--- NOTE | 2021-05-23 14:56 | PC.NURSE ---
pt's daughter called asking when pt would be discharged. she stated that she needed to coordinate home health providers, et al. and that pt would need to be transferred via ambulance. She also stated that she is sick and is planning on getting tested [for Covid presumably] since pt tested positive and she was exposed to her/it and she was concerned about visiting her mother. She continued to explain that she was concerned for pt coming home too early or without warning because of the aforementioned factors. I explained to her that we are not allowing visitors at this time especially for Covid pts therefore that burden of visiting is off her as we would not allow it to which she stated she appreciated that and was relieved. She reiterated that she needs at least 24hour notice to coordinate everyone before pt can return home. I contacted care coordination and the hospitalist to make them aware of this.
[2021-05-23 16:00] VITALS: BP 152/86; PULSE 66; RESP 18; TEMP 35.6; O2SAT 95
--- NOTE | 2021-05-23 16:58 | PM.IMPN ---
Progress Note: A&P Assessment and Plan (1) Acute respiratory failure with hypoxia: Code(s): J96.01 - Acute respiratory failure with hypoxia Status: Acute Assessment and Plan: Secondary to COVID pneumonia. Pulmonary embolism seems less likely at this time. Wean oxygen as tolerated. (2) Pneumonia due to COVID-19 virus: Code(s): U07.1 - COVID-19; J12.82 - Pneumonia due to coronavirus disease 2018 Status: Acute Assessment and Plan: Continue dexamethasone and remdesivir per COVID protocol. Trend inflammatory markers ferritin 686, LDH 870, CRP 3.4 AST/ALT / Chest xray shows PNA and emphysema Continue isolation. (3) Polycythemia: Code(s): D75.1 - Secondary polycythemia Status: Acute Assessment and Plan: H/H .5 Not noticed on previous labs in the last year or so. L of fluids may be a bit dehydrated. chronic hypoxia from obesity hypoventilation syndrome. Imaging also shows emphysema. (4) Urinary tract infection: Code(s): N39.0 - Urinary tract infection, site not specified Status: Acute Assessment and Plan: Continue ceftriaxone, urine culture gram negative bacilli (5) Confusion: Code(s): R41.0 - Disorientation, unspecified Status: Acute Assessment and Plan: Continues to be alert and oriented Could be related to underlying COVID. ABG combonation of resp meta alk, TSH 1.480, B12 825 Could also be from a UTI Seems to be resolving Time Spent With Patient Time with patient: Greater than 35 minutes Subjective Date/time seen: 05/23/21 16:58 Interval history: Date/Time: 05/22/21 19:00 Narrative: This is a chronically debilitated, morbidly obese 75-year-old female who is bed-bound with history of breast cancer, hypertension, anemia, neuropathy, peptic ulcers, and permanent pacemaker who presented to the emergency department earlier today via EMS from home for evaluation of confusion. She is not a very good historian and all she can tell me is that she has not felt well for about 5 to 7 days and that family members have had similar symptoms. She has been fatigued and sleeping more than usual. Per family report, she has seemed a bit confused over the past several days and the patient herself noticed that she was somewhat confused upon waking this morning. She initially attributed that to the fact that she slept poorly last night though she cannot tell me why she slept poorly. In the emergency department she tested positive for SARS-CoV-2 by PCR and she is being admitted in this setting. At the time my evaluation she has no complaints aside from mild shortness of breath. She also reports dysuria and strong smelling urine. She denies fever, chills, sweats, sinus congestion, sore throat, chest pain, pleuritic pain, nausea, vomiting, and diarrhea. She apparently was not vaccinated for COVID-19 and she has no known exposure to those positive for COVID to her knowledge. Date/Time 05/23/21 1658 Patient has no complaints today patient stated that she does not know why she is here. Patient stated that she feels fine and like her normal self. Patient denies any kind of activity like walking or feeding herself. Patient did know the year and she did know what hospital she was in. Patient was on 2 L of oxygen which has been turned off since the patient has been satting in the mid 90s all day. Patient denies chest pain, shortness of breath, nausea, vomiting, diarrhea, constipation, weakness, fatigue. Review of Systems Review of Systems: All systems reviewed & are unremarkable except as noted in HPI and below Exam Const: General: cooperative, no acute distress, well developed, alert, awake, confusion and tired appearing Nutritional Appearance: well nourished, obese and overweight Orientation/consciousness: oriented to person and oriented to place Limitations: no limitations HENMT: Head: normal to i
[2021-05-23] MEDS: FUROSEMIDE INJ 40 MG/4 ML VIAL IV PUSH (18:38)
[2021-05-23 20:00] VITALS: BP 152/77; PULSE 68; RESP 18; TEMP 36.6; O2SAT 93
[2021-05-23] MEDS: REMDESIVIR 100 MG/NS 250 ML 100 MG/250 ML BAG 250 MG IVPB (21:03)
[2021-05-24] VITALS (8 sets, daily range): BP systolic 141–154; BP diastolic 68–101; PULSE 51–72; RESP 16–20; TEMP 35.5–36.5; O2SAT 89–98
[2021-05-24 06:48] LABS: Basophils Percent Auto 0.3 % (0.2-1.2); Hematocrit 54.1 % (37.0-47.0); Hemoglobin 17.3 g/dL (12.0-15.0); Immature Granulocyte Absolute 0.02 K/mm3 (0.00-0.031); Immature Granulocyte Percent A 0.6 % (0-0.5); Lymphocytes Absolute Auto 0.69 K/mm3 (0.9-3.2); Lymphocytes Percent Auto 20.8 % (18.3-44.2); Mean Corpuscular Hemoglobin 28.3 pg (26-34); Mean Corpuscular Volume 88.5 fl (80-100); Monocytes Absolute Auto 0.2 K/mm3 (0.1-0.6); Monocytes Percent Auto 6.9 % (2.6-8.5); Neutrophils Absolute Auto 2.4 K/mm3 (1.3-6.7); Neutrophils Percent Auto 71.4 % (45.5-73.1); Platelet Count Result 227 k/mm3 (150-375); Red Blood Count 6.11 M/mm3 (4.2-5.4); Red Cell Distribution Width 14.6 % (11.5-14.5); White Blood Count 3.3 K/mm3 (4.5-10.0)
[2021-05-24 07:01] LABS: INR 1.1; Prothrombin Time 13.9 Seconds (11.1-14.7)
[2021-05-24 07:33] LABS: Alanine Aminotransferase 16 U/L (4-35); Albumin Level 3.6 g/dL (3.5-5.1); Alkaline Phosphatase 63 U/L (38-126); Anion Gap 10 mmol/L (8-16); Aspartate Amino Transferase 48 U/L (14-36); Bilirubin,Total 0.9 mg/dL (0.2-1.3); Blood Urea Nitrogen 24 mg/dL (7-17); CRP 2.4 mg/dL (<1.0); Calcium 8.6 mg/dL (8.4-10.2); Carbon Dioxide 27 mmol/L (22-30); Chloride 104 mmol/L (98-107); Estimated CRCL calculation 67 ml/min; Estimated Glomerular Filt Rate > 60; Glucose 152 mg/dL (65-110); Lactate Dehydrogenase 1296 U/L (313-618); Potassium 3.9 mmol/L (3.4-5.0); Sodium 141 mmol/L (137-145)
[2021-05-24 08:42] LABS: D Dimer 0.74 ug/mL (<0.48)
[2021-05-24] MEDS: ENOXAPARIN 40 MG/0.4 ML SYRINGE SUB-Q (09:01)
--- NOTE | 2021-05-24 12:00 | PM.IMPN ---
Progress Note: A&P Assessment and Plan (1) Acute respiratory failure with hypoxia: Code(s): J96.01 - Acute respiratory failure with hypoxia Status: Acute Assessment and Plan: Secondary to COVID pneumonia. Pulmonary embolism seems less likely at this time. Wean oxygen as tolerated. Still remains on room air (2) Pneumonia due to COVID-19 virus: Code(s): U07.1 - COVID-19; J12.82 - Pneumonia due to coronavirus disease 2018 Status: Acute Assessment and Plan: Continue dexamethasone and remdesivir per COVID protocol. Trend inflammatory markers ferritin 647, LDH 1296, CRP 2.4 AST/ALT 48/16 Chest xray shows PNA and emphysema Continue isolation. (3) Polycythemia: Code(s): D75.1 - Secondary polycythemia Status: Acute Assessment and Plan: H/H 17.3/54.1 Not noticed on previous labs in the last year or so. L of fluids may be a bit dehydrated. chronic hypoxia from obesity hypoventilation syndrome. Imaging also shows emphysema. (4) Urinary tract infection: Code(s): N39.0 - Urinary tract infection, site not specified Status: Acute Assessment and Plan: Continue ceftriaxone, urine culture Ecoli (5) Confusion: Code(s): R41.0 - Disorientation, unspecified Status: Acute Assessment and Plan: Continues to be alert and oriented Could be related to underlying COVID. ABG combonation of resp meta alk, TSH 1.480, B12 825 Could also be from a UTI Seems to be resolving (6) Acute metabolic encephalopathy: Code(s): G93.41 - Metabolic encephalopathy Status: Acute Assessment and Plan: See above Time Spent With Patient Time with patient: Greater than 35 minutes Subjective Date/time seen: 05/24/21 12:00 Interval history: Date/Time: 05/22/21 19:00 Narrative: This is a chronically debilitated, morbidly obese 75-year-old female who is bed-bound with history of breast cancer, hypertension, anemia, neuropathy, peptic ulcers, and permanent pacemaker who presented to the emergency department earlier today via EMS from home for evaluation of confusion. She is not a very good historian and all she can tell me is that she has not felt well for about 5 to 7 days and that family members have had similar symptoms. She has been fatigued and sleeping more than usual. Per family report, she has seemed a bit confused over the past several days and the patient herself noticed that she was somewhat confused upon waking this morning. She initially attributed that to the fact that she slept poorly last night though she cannot tell me why she slept poorly. In the emergency department she tested positive for SARS-CoV-2 by PCR and she is being admitted in this setting. At the time my evaluation she has no complaints aside from mild shortness of breath. She also reports dysuria and strong smelling urine. She denies fever, chills, sweats, sinus congestion, sore throat, chest pain, pleuritic pain, nausea, vomiting, and diarrhea. She apparently was not vaccinated for COVID-19 and she has no known exposure to those positive for COVID to her knowledge. Date/Time 05/23/21 1658 Patient has no complaints today patient stated that she does not know why she is here. Patient stated that she feels fine and like her normal self. Patient denies any kind of activity like walking or feeding herself. Patient did know the year and she did know what hospital she was in. Patient was on 2 L of oxygen which has been turned off since the patient has been satting in the mid 90s all day. Patient denies chest pain, shortness of breath, nausea, vomiting, diarrhea, constipation, weakness, fatigue. Date/Time 05/24/21 1200 Patient is feeling ok. she denies having any problems. She has no chest pain, shortness of breath, nausea, vomiting, diarrhea, constipation. She is currently on room air, and doing well. Talked to her daughter about plan o
[2021-05-24] MEDS: FUROSEMIDE INJ 40 MG/4 ML VIAL IV PUSH (15:49)
[2021-05-24] MEDS: dilTIAZem HCL CD 180 MG CAP.ER.24H PO (17:55)
[2021-05-24] MEDS: MUPIROCIN 2% OINT 22 GM TUBE 1 APPLIC TOPICAL (17:55)
[2021-05-24] MEDS: PREGABALIN (*CRX) 50 MG CAPSULE 100 MG PO (17:55)
[2021-05-24] MEDS: METOPROLOL TARTRATE 12.5 MG TABLET PO (17:55)
[2021-05-24] MEDS: REMDESIVIR 100 MG/NS 250 ML 100 MG/250 ML BAG 250 MG IVPB (21:17)
[2021-05-24] MEDS: GABAPENTIN 300 MG CAPSULE 600 MG PO (21:18)
[2021-05-24] MEDS: hydrOXYzine pamoate 25 MG CAPSULE 50 MG PO (21:18)
[2021-05-25 06:50] VITALS: BP 158/86; PULSE 50; RESP 16; TEMP 36.5; O2SAT 92
[2021-05-25 08:00] VITALS: BP 169/75; PULSE 69; RESP 14; TEMP 35.7; O2SAT 92
[2021-05-25 08:15] LABS: Hematocrit 54.3 % (37.0-47.0); Hemoglobin 17.5 g/dL (12.0-15.0); Immature Granulocyte Absolute 0.02 K/mm3 (0.00-0.031); Immature Granulocyte Percent A 0.5 % (0-0.5); Lymphocytes Percent Auto 16.4 % (18.3-44.2); Mean Corpuscular HGB Conc 32.2 g/dl (32-36); Mean Corpuscular Hemoglobin 28.9 pg (26-34); Mean Corpuscular Volume 89.8 fl (80-100); Mean Platelet Volume 10.9 fl (7.4-10.4); Monocytes Absolute Auto 0.2 K/mm3 (0.1-0.6); Monocytes Percent Auto 5.4 % (2.6-8.5); Neutrophils Absolute Auto 3.3 K/mm3 (1.3-6.7); Neutrophils Percent Auto 77.7 % (45.5-73.1); Platelet Count Result 249 k/mm3 (150-375); Red Blood Count 6.05 M/mm3 (4.2-5.4); Red Cell Distribution Width 15.2 % (11.5-14.5); White Blood Count 4.3 K/mm3 (4.5-10.0)
[2021-05-25 08:28] LABS: Prothrombin Time 13.1 Seconds (11.1-14.7)
[2021-05-25 08:31] LABS: D Dimer 0.64 ug/mL (<0.48)
[2021-05-25 08:32] LABS: Alanine Aminotransferase 17 U/L (4-35); Albumin Level 3.3 g/dL (3.5-5.1); Alkaline Phosphatase 62 U/L (38-126); Anion Gap 7 mmol/L (8-16); Aspartate Amino Transferase 36 U/L (14-36); Bilirubin,Total 0.6 mg/dL (0.2-1.3); Blood Urea Nitrogen 31 mg/dL (7-17); CRP 1.5 mg/dL (<1.0); Calcium 8.1 mg/dL (8.4-10.2); Carbon Dioxide 31 mmol/L (22-30); Chloride 102 mmol/L (98-107); Estimated CRCL calculation 67 ml/min; Estimated Glomerular Filt Rate > 60; Glucose 153 mg/dL (65-110); Lactate Dehydrogenase 909 U/L (313-618); Magnesium 1.9 mg/dL (1.6-2.3); Potassium 3.2 mmol/L (3.4-5.0); Sodium 140 mmol/L (137-145)
--- NOTE | 2021-05-25 09:30 | PM.DS ---
DS: Admitting Diagnosis Discharge Date 05/25/21929 Admitting Diagnosis UTI/COVID DS: Discharge Diagnosis Discharge Diagnosis (1) Acute respiratory failure with hypoxia: Code(s): J96.01 - Acute respiratory failure with hypoxia Status: Acute Assessment and Plan: Secondary to COVID pneumonia. Pulmonary embolism seems less likely at this time. Wean oxygen as tolerated. Still remains on room air (2) Pneumonia due to COVID-19 virus: Code(s): U07.1 - COVID-19; J12.82 - Pneumonia due to coronavirus disease 2018 Status: Acute Assessment and Plan: Continue dexamethasone and remdesivir per COVID protocol. Trend inflammatory markers ferritin 647, LDH 1296, CRP 2.4 AST/ALT 48/16 Chest xray shows PNA and emphysema Continue isolation. (3) Polycythemia: Code(s): D75.1 - Secondary polycythemia Status: Acute Assessment and Plan: H/H 17.3/54.1 Not noticed on previous labs in the last year or so. L of fluids may be a bit dehydrated. chronic hypoxia from obesity hypoventilation syndrome. Imaging also shows emphysema. (4) Urinary tract infection: Code(s): N39.0 - Urinary tract infection, site not specified Status: Acute Assessment and Plan: Continue ceftriaxone, urine culture Ecoli (5) Confusion: Code(s): R41.0 - Disorientation, unspecified Status: Acute Assessment and Plan: Continues to be alert and oriented Could be related to underlying COVID. ABG combonation of resp meta alk, TSH 1.480, B12 825 Could also be from a UTI Seems to be resolving (6) Acute metabolic encephalopathy: Code(s): G93.41 - Metabolic encephalopathy Status: Acute Assessment and Plan: See above DS: Summary Hospital Course Hospital Course: Patient is a 75-year-old female with a past medical history of AFib, pulmonary hypertension, morbid obesity, dementia who presented to ED with complaints of confusion. Patient was tested for COVID and it came back positive. Patient was also given supplemental oxygen for decreased O2 sats. She was started on IV remdesivir and IV Decadron for treatment. Oxygen was weaned off And patient is currently on room air. Patient was also started on ceftriaxone for a UA suspicious for UTI. Urine cultures did grow E coli that was sensitive to ceftriaxone. Patient will be changed to oral Levaquin for discharge. Patient is alert oriented x3 to place, time, and self. She is feeling ok today and is ready to go home. She denies chest pain, shortness of breath, nausea, vomiting, diarrhea, constipation, sweats, fevers, and chill. lab work has stayed within stable limit. Inflammatory markers have been trend since admission. Patient is stable for discharge at this time. Currently she is sitting in bed eating her breakfast, stating that she is starving. She feels great, and asked about going home in an ambulance. Status at Discharge Functional status at discharge: bed bound Overall status at discharge: patient is progressing back to baseline Time Spent with Patient Time attestation: Total time spent providing and/or coordinating discharge services: 42 minutes Time spent: Greater than 30 minutes Specific discharge activities: Diagnostic testing, chart review, developing a treatment plan, education, care coordination documentation, physical exam, result review Exam Const: General: cooperative, no acute distress, well developed, alert, awake, confusion and tired appearing Nutritional Appearance: well nourished, obese and overweight Orientation/consciousness: oriented to person, oriented to place and confusion Limitations: no limitations HENMT: Head: normal to inspection Ears: hearing grossly normal bilaterally General nose exam: Normal external nose present Mouth: Yes Normal oral and palatal mucosa present, Yes lip normal and Yes tongue normal Teeth and gingiva: abno
[2021-05-25 09:53] VITALS: PULSE 65
[2021-05-25] MEDS: MUPIROCIN 2% OINT 22 GM TUBE 1 APPLIC TOPICAL (09:53)
[2021-05-25] MEDS: ENOXAPARIN 40 MG/0.4 ML SYRINGE SUB-Q (09:53)
[2021-05-25] MEDS: METOPROLOL TARTRATE 12.5 MG TABLET PO (09:53)
[2021-05-25] MEDS: dilTIAZem HCL CD 180 MG CAP.ER.24H PO (09:54)
[2021-05-25] MEDS: PREGABALIN (*CRX) 50 MG CAPSULE 100 MG PO (09:54)
[2021-05-25] MEDS: LETROZOLE (*CHEMO) 2.5 MG TABLET PO (09:54)
[2021-05-25] MEDS: POTASSIUM CHLORIDE 20 MEQ TABLET.ER PO (09:54)
[2021-05-25] MEDS: FUROSEMIDE 40 MG TABLET PO (09:54)
[2021-05-25] MEDS: calcitrioL 0.25 MCG CAPSULE PO (09:54)
== END 2021-05-25 11:56 | disposition home or self-care (01) | DRG 177 ==
LOC: ANHED 13:57 → ANH3MEDSUR 17:44
PROVIDERS: Emergency Medicine; Nurse Practitioner; Physician Assistant; Admitting Provider Internal Medicine; Emergency Provider Emergency Medicine; PCP Family Medicine; Visit Provider Internal Medicine
DX: U07.1 COVID-19 (principal); J12.82 Pneumonia due to coronavirus disease 2019; J96.01 Acute respiratory failure with hypoxia; G93.41 Metabolic encephalopathy; N39.0 Urinary tract infection, site not specified; Z68.41 Body mass index [BMI] 40.0-44.9, adult; E66.2 Morbid (severe) obesity with alveolar hypoventilation; B96.20 Unspecified Escherichia coli [E. coli] as the cause of diseases classified elsewhere; D75.1 Secondary polycythemia; I48.91 Unspecified atrial fibrillation; F03.90 Unspecified dementia, unspecified severity, without behavioral disturbance, psychotic disturbance, mood disturbance, and anxiety; I27.20 Pulmonary hypertension, unspecified; G62.9 Polyneuropathy, unspecified; Z87.891 Personal history of nicotine dependence; Z79.01 Long term (current) use of anticoagulants; Z79.899 Other long term (current) drug therapy; Z95.0 Presence of cardiac pacemaker; Z85.3 Personal history of malignant neoplasm of breast
CPT/HCPCS: 36415; 36600; 51701; 71045; 80053; 81001; 82375; 82565; 82607; 82728; 82805; 83050; 83615; 83735; 84443; 84460; 85025; 85027; 85380; 85610; 85730; 86140; 87040; 87077; 87086; 87088; 87186; 93005; 96365; 96366; 96367; 96372; 96375; 99285; A9270; C9803; G0378; J0456; J0696; J1100; J1650; J1940; J7030; U0003; U0005

== ENCOUNTER 2021-10-05 11:06 | Outpatient (CLI) | payer MEDICARE, SELFPAY ==
--- NOTE | ~2021-10-05 | US_ITS ---
EXAMINATION: US venous doppler [facility] DATE: 10/05/2021 12:47 INDICATION: Left lower limb pain. TECHNIQUE: Grayscale ultrasound images without and with compression and Doppler ultrasound images of the left lower extremity veins were obtained. COMPARISON: Ultrasound 12/21/2019 FINDINGS: The visualized portions of left common femoral vein, profunda (deep) femoral vein, femoral vein, popl iteal vein, peroneal veins, posterior tibial veins, and greater saphenous vein outflow are patent. In the posterolateral calf, there is a 2.7 x 1.5 x 1.6] mixed hypoechoic and cystic subcutaneous mass. IMPRESSION: 1. No deep venous thrombosis. 2. Subcutaneous mass in the posterolateral calf, likely a hematoma. Reviewed, dictated and finalized at location A.
[2021-10-05 11:54] LABS: Basophils Absolute Auto 0.1 K/mm3 (0.0-0.1); Basophils Percent Auto 0.6 % (0.2-1.2); Eosinophils Absolute Auto 0.3 K/mm3 (0-0.3); Hematocrit 55.1 % (37.0-47.0); Hemoglobin 17.1 g/dL (12.0-15.0); Immature Granulocyte Absolute 0.03 K/mm3 (0.00-0.031); Immature Granulocyte Percent A 0.4 % (0-0.5); Lymphocytes Absolute Auto 1.51 K/mm3 (0.9-3.2); Lymphocytes Percent Auto 18.1 % (18.3-44.2); Mean Corpuscular Hemoglobin 27.7 pg (26-34); Mean Corpuscular Volume 89.3 fl (80-100); Mean Platelet Volume 10.3 fl (7.4-10.4); Monocytes Absolute Auto 0.4 K/mm3 (0.1-0.6); Monocytes Percent Auto 4.7 % (2.6-8.5); Neutrophils Absolute Auto 6.1 K/mm3 (1.3-6.7); Neutrophils Percent Auto 73.2 % (45.5-73.1); Platelet Count Result 222 k/mm3 (150-375); Red Blood Count 6.17 M/mm3 (4.2-5.4); Red Cell Distribution Width 18.6 % (11.5-14.5); White Blood Count 8.3 K/mm3 (4.5-10.0)
[2021-10-05 12:05] LABS: Hemoglobin A1C 5.8 % (<5.7)
[2021-10-05 12:09] LABS: Alanine Aminotransferase 13 U/L (6-35); Albumin Level 4.2 g/dL (3.5-5.1); Alkaline Phosphatase 108 U/L (38-126); Anion Gap 5 mmol/L (8-16); Aspartate Amino Transferase 25 U/L (14-36); Bilirubin,Total 1.4 mg/dL (0.2-1.3); Blood Urea Nitrogen 16 mg/dL (7-17); Calcium 9.1 mg/dL (8.4-10.2); Carbon Dioxide 33 mmol/L (22-30); Chloride 102 mmol/L (98-107); Cholesterol 176 mg/dL (0-200); Estimated Glomerular Filt Rate > 60; Glucose 100 mg/dL (65-110); HDL Direct 35 mg/dL; Potassium 3.5 mmol/L (3.4-5.0); Sodium 140 mmol/L (137-145); Triglycerides 124 mg/dL (<150); Uric Acid 5.6 mg/dL (2.5-7.5)
[2021-10-05 12:20] LABS: LDL Cholesterol Direct 101 mg/dL
[2021-10-05 12:39] LABS: Free T4 Free Thyroxine 1.49 ng/mL (0.78-2.19); Vitamin D 25 Hydroxy 22.1 ng/mL
[2021-10-05 13:13] LABS: Folic Acid 8.3 ng/mL (2.76->20)
[2021-10-05 16:16] LABS: Appearance Urine Clear (Clear); Color Urine Yellow (Yellow)
[2021-10-05 16:17] LABS: Protein Urine 2+ mg/dL (Negative); Specific Grav Ur 1.015 (1.001-1.035)
[2021-10-05 16:18] LABS: Add Urine Microscopic? YES; Bilirubin Urine Negative (Negative); Blood Urine Trace-lysed (Negative); Glucose Urine UA Negative (Negative); Ketones Urine Negative (Negative); Leukocyte Esterase Ur Trace LEU/UL (Negative); Nitrate Urine Negative (Negative)
[2021-10-05 16:20] LABS: Bacteria Urine Trace /hpf; Mucus Urine Rare /lpf; Squamous Epithelial Cell Urine Rare /hpf (Few); WBC Urine 0-3 /hpf
== END 2021-10-05 11:07 | disposition home or self-care (01) ==
PROVIDERS: PCP Family Medicine; Visit Provider Family Medicine
DX: E78.5 Hyperlipidemia, unspecified (principal); R19.34 Left lower quadrant abdominal rigidity; M79.605 Pain in left leg; G62.9 Polyneuropathy, unspecified; D64.9 Anemia, unspecified; M10.09 Idiopathic gout, multiple sites; I50.9 Heart failure, unspecified; G25.81 Restless legs syndrome; Z51.81 Encounter for therapeutic drug level monitoring; Z79.899 Other long term (current) drug therapy
CPT/HCPCS: 36415; 80053; 80061; 81001; 82306; 82607; 82746; 83036; 83735; 84439; 84443; 84550; 85025; 93971

== ENCOUNTER 2022-01-20 15:28 | Inpatient (IN) | payer MEDICARE, SELFPAY ==
--- NOTE | ~2022-01-20 | XR_ITS ---
EXAMINATION: XR abdomen NG/feed tube rechec DATE: 01/20/2022 21:52 INDICATION: Nasogastric tube advancement TECHNIQUE: A supine view of the abdomen and lower chest was obtained for evaluation of feeding tube placement. COMPARISON: KUB and CT dated 01/20/22 FINDINGS: Nasogastric tube tip projects of the right hemipelvis likely within the distal gastric body with char ed gastric distention which extends into a large right-sided ventral hernia on prior CT. Surgical cli ps consistent with attempted prior ventral hernia repair. There are some gas in the stomach on the up right image but not otherwise relative paucity of bowel gas in the visualized abdomen. Visualized mckenzie gs are clear. Cardiomegaly. Dual lead pacemaker seen with leads projecting over the expected location s of the right atrium and right ventricle. Severe thoracic and lumbar spondylosis mild lumbar dextroc urvature. IMPRESSION: 1. Nasogastric tube tip and proximal side-port within the dilated stomach. Reviewed, dictated and finalized at location A.
--- NOTE | ~2022-01-20 | XR_ITS ---
EXAM: XR abdomen NG/feed tube insert DATE: 01/20/2022 19:41 HISTORY: NG placement . COMPARISON: 12/22/2019. FINDINGS: Clear lung bases. Incompletely visualized pacer leads. Multiple mid abdominal surgical cli ps and jose. NG tube tip terminating in the proximal stomach with the side-port over the GE juncti on. Normal bowel gas pattern. No organomegaly. No abnormal abdominal calcification. Regional bones an d soft tissues normal for age. IMPRESSION: Shallow positioned NG tube, consider advancing by 5 cm. Reviewed, dictated and finalized at location K.
--- NOTE | ~2022-01-20 | CT_ITS ---
EXAMINATION: CT abdomen pelvis w con DATE: 01/20/2022 17:02 INDICATION: Upper abdominal pain TECHNIQUE: Computed tomography (CT) of the abdomen and pelvis was performed with 100 mL Omnipaque-350 intravenous contrast. Automated exposure control and iterative reconstruction technique were employe d. The dose-length product was 1536.07 mGy-cm. COMPARISON: 1020. FINDINGS: Lower thorax: Dilated pulmonary arteries. Cardiomegaly. Severe coronary artery, aortic valve, and portia ral calcification. Incompletely visualized pacing wires. Interstitial lung disease. Left lower lobe a cinar opacities. Small hiatal hernia. Fluid-filled esophagus with mucosal hyperemia. Liver: Heterogeneous enhancement. Hepatomegaly. Biliary/Gallbladder: Gallbladder herniates into the ventral abdominal wall hernia. Cholelithiasis. Mi ld inflammatory change and mucosal hyperemia No bile duct dilation. Pancreas: Atrophic Spleen: Heterogeneous enhancement. Adrenals:1.4 cm right adrenal nodule, likely adenoma as there is a history of primary malignancy. Kidneys: Right upper lobe scarring. Bilateral cortical thinning. Multiple cysts and lesions that are too small to characterize. GI tract: Considerable amount of large and small bowel is located within the ventral hernia sac. Port ions of bowel are excluded from the [id number]. Marked gastric dilation, unchanged. No small or la rge bowel dilation. Normal appendix. Diverticulosis without diverticulitis. Mesentery/Peritoneum: No ascites, mass, or free air. Retroperitoneum: No mass. Atherosclerotic abdominal aortic and/or arterial calcifications. The right common iliac artery is dilated to 1.6 cm Pelvis: Uterus not visualized. Bladder diverticulum. Organs are within normal limits. Soft Tissues: Large supraumbilical ventral abdominal wall hernia, with a wide neck, containing approx imately one half of the stomach, small bowel, large bowel, and the majority of the gallbladder Bones: No acute osseous finding. IMPRESSION: Right lower lobe opacities may reflect aspiration, infection, or active interstitial disease. Hepatom egaly. Possible cirrhosis. Massive ventral hernia containing large portions of stomach, small, and la rge bowel. The gallbladder is also herniated and mildly inflamed, possibly indicating obstruction, co rrelate with symptoms and biliary labs. Reviewed, dictated and finalized at location K. IMPRESSION: Right lower lobe opacities may reflect aspiration, infection, or active interst itial disease. Hepatomegaly. Possible cirrhosis. Massive ventral hernia contain ing large portions of stomach, small, and large bowel. The gallbladder is also herniated and mildly inflamed, possibly indicating obstruction, correlate with symptoms and biliary labs.
[2022-01-20 15:27] VITALS: BP 175/102; PULSE 68; RESP 18; TEMP 36.8; O2SAT 90
[2022-01-20 15:42] VITALS: BP 175/102; PULSE 65; RESP 20; O2SAT 97
--- NOTE | 2022-01-20 15:44 | ECG_ITS ---
Measurements Intervals [place] Rate: 61 P: CO: 0 QRS: 8 QRSD: 114 T: 238 QT: 474 QTc: 478 Interpretive Statements ATRIAL FIBRILLATION INTRAVENTRICULAR CONDUCTION DELAY ST-T WAVE ABNORMALITY IN ANTEROLAT/INF LEADS- CONSIDER ISCHEMIA ABNORMAL ECG COMPARED TO ECG 05/22/2021 10:31:24 INTRAVENTRICULAR CONDUCTION DELAY NOW PRESENT Electronically Signed On 01-21-2022 7:02:37 CDT by Matias Stiles D.O.
--- NOTE | 2022-01-20 15:51 | ED.GENADULT ---
HPI - General Adult General Chief complaint: GI Bleed Stated complaint: n/v, coffee ground emesis Time Seen by Provider: 01/20/22 15:31 Source: patient and EMS Mode of arrival: EMS Limitations: no limitations History of Present Illness HPI narrative: 76 years old white female came from home by ambulance complaining of vomiting over the last 2 days on average 2-3 times each day. She denies any fever, chills, diarrhea, constipation, abdominal pain, back pain, chest pain, shortness of breath or urinary symptoms. Last bowel movement yesterday morning, last normal meal was yesterday. Patient does not smoke or drink or uses drugs. She denies any history of abdominal surgery. Today the vomiting looks like coffee-ground. Patient on Eliquis. History of adult hypertrophic pyloric stenosis, duodenal ulcer, pacemaker, and obesity Related Data Home Medications Medication Instructions Recorded Confirmed apixaban 5 mg tablet 5 mg PO BID 12/20/19 05/23/21 calcitriol 0.25 mcg capsule 0.25 mcg PO DAILY 12/20/19 05/23/21 diltiazem HCl 180 mg 180 mg PO DAILY 12/20/19 05/23/21 capsule,extended release 24 hr (Cardizem CD) fluticasone propionate 50 2 spray intranasal PRN PRN 12/20/19 05/23/21 mcg/actuation nasal Congestion spray,suspension furosemide 40 mg tablet 40 mg PO DAILY 12/20/19 05/23/21 gabapentin 300 mg capsule 600 mg PO HS 12/20/19 05/23/21 hydrocodone 5 mg-acetaminophen 325 1 tablet PO Q6H PRN Pain 12/20/19 05/23/21 mg tablet hydroxyzine pamoate 50 mg capsule 50 mg PO HS 12/20/19 05/23/21 letrozole 2.5 mg tablet 2.5 mg PO DAILY 12/20/19 05/23/21 melatonin 3 mg tablet 3 mg PO HS PRN Insomnia 12/20/19 05/23/21 metoprolol tartrate 25 mg tablet 12.5 mg PO BID 12/20/19 05/23/21 mupirocin 2 % topical ointment 1 applic topical BID 12/20/19 05/23/21 potassium chloride 20 mEq 20 meq PO DAILY 12/20/19 05/23/21 tablet,extended release pregabalin 100 mg capsule 100 mg PO BID 12/20/19 05/23/21 Allergies Allergy/AdvReac Type Severity Reaction Status Date / Time No Known Allergies Allergy Verified 01/20/22 15:40 Review of Systems Review of Systems: All systems reviewed & are unremarkable except as noted in HPI and below PMFSH Past Medical History Medical History Atrial fibrillation Cancer of right breast (~2017) Status post lumpectomy, chemotherapy, and radiation. 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 Mitral stenosis Morbid obesity Partial gastric outlet obstruction Pulmonary HTN severe - PA 62 mmHg Respiratory insufficiency Surgical History Surgical History History of fusion of cervical spine C5-C6 fusion after fracture. History of hernia repair History of lumpectomy of right breast For breast cancer. History of permanent cardiac pacemaker placement History of total hysterectomy with bilateral salpingo-oophorectomy (BSO) Status post debridement Left heel wound debridement. Family History Family History Father Congestive heart failure Heart disease Sibling Diabetes mellitus Mother Breast cancer Sibling Heart disease Social History Social History Social History: The patient is originally from [place], but moved to [place] in spring 2019 to live with her daughter however she is now living in her own apartment. She is nonambulatory and transfers with a [employer]. 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 She smoked upwards of 2 packs of cigarettes a day and quit in 2009. She denies alcohol and illicit substance use. Her only child, daughter Zoie Peguero, is her surrogate decision maker and she wishes to be a full code. Dorothy
[2022-01-20 16:22] LABS: Basophils Absolute Auto 0.1 K/mm3 (0.0-0.1); Basophils Percent Auto 0.3 % (0.2-1.2); Eosinophils Percent Auto 0.1 % (0-4.4); Hematocrit 55.8 % (37.0-47.0); Immature Granulocyte Absolute 0.07 K/mm3 (0.00-0.031); Immature Granulocyte Percent A 0.5 % (0-0.5); Lymphocytes Absolute Auto 1.55 K/mm3 (0.9-3.2); Lymphocytes Percent Auto 10.5 % (18.3-44.2); Mean Corpuscular HGB Conc 32.3 g/dl (32-36); Mean Corpuscular Hemoglobin 29.4 pg (26-34); Mean Corpuscular Volume 91.2 fl (80-100); Mean Platelet Volume 10.6 fl (7.4-10.4); Monocytes Absolute Auto 0.8 K/mm3 (0.1-0.6); Monocytes Percent Auto 5.3 % (2.6-8.5); Neutrophils Absolute Auto 12.3 K/mm3 (1.3-6.7); Neutrophils Percent Auto 83.3 % (45.5-73.1); Platelet Count Result 243 k/mm3 (150-375); Red Blood Count 6.12 M/mm3 (4.2-5.4); Red Cell Distribution Width 16.5 % (11.5-14.5); White Blood Count 14.8 K/mm3 (4.5-10.0)
[2022-01-20] MEDS: SODIUM CHLORIDE 0.9% IV 1,000 ML 999 ML IV CONT (16:28)
[2022-01-20] MEDS: ONDANSETRON INJ 4 MG/2 ML VIAL 8 MG IV PUSH (16:30)
[2022-01-20 16:31] LABS: Alanine Aminotransferase 18 U/L (6-35); Albumin Level 3.8 g/dL (3.5-5.1); Alkaline Phosphatase 98 U/L (38-126); Anion Gap 8 mmol/L (8-16); Aspartate Amino Transferase 27 U/L (14-36); Bilirubin,Total 1.3 mg/dL (0.2-1.3); Blood Urea Nitrogen 26 mg/dL (7-17); Calcium 9.2 mg/dL (8.4-10.2); Carbon Dioxide 32 mmol/L (22-30); Chloride 103 mmol/L (98-107); Estimated CRCL calculation 54 ml/min; Estimated Glomerular Filt Rate > 60; Glucose 136 mg/dL (65-110); Lipase 92 U/L (23-300); Potassium 3.2 mmol/L (3.4-5.0); Sodium 143 mmol/L (137-145)
[2022-01-20 16:47] LABS: Troponin I 0.053 ng/mL (0.000-0.034)
[2022-01-20] MEDS: PANTOPRAZOLE SODIUM IV 40 MG VIAL IV PUSH (18:19)
[2022-01-20] MEDS: POTASSIUM CHLORIDE INJ 40 MEQ in SODIUM CHLORIDE 0.9% IV 500 ML 130 MEQ IVPB (18:28)
[2022-01-20 19:44] VITALS: BP 175/102; PULSE 74; RESP 20; O2SAT 95
--- NOTE | 2022-01-20 20:00 | PM.IMHP ---
H&P: HPI History of Present Illness Date/Time: 01/20/22 20:00 Chief Complaint: Vomiting for several days. Narrative: This is a chronically debilitated, morbidly obese 76-year-old female who is bed-bound with history of breast cancer, hypertension, anemia, neuropathy, paroxysmal atrial fibrillation on anticoagulation, partial gastric outlet obstruction, and peptic ulcers who presented to the emergency department earlier today via EMS from home for evaluation of vomiting for several days. She has had ongoing issues with nausea and vomiting over the past couple of days and her daughter became concerned today that she may have coffee-ground emesis which prompted her to call EMS. She was found to have an SpO2 of 84% on room air and she is currently on 4 liters nasal cannula. A CT of the abdomen pelvis showed right lower lobe opacities which may reflect aspiration and among other things a massive ventral hernia containing large portions of the stomach, small, and large bowel as well as gallbladder which appears mildly inflamed and possibly obstructed. the hernia has been present for many years and on occasion it will cause her mild discomfort but nothing significant she is not having any pain at this time. She has noticed however that her abdomen seems a bit more distended and thinking back she has had intermittent issues with abdominal distension, discomfort, and nausea since being started on anticoagulation earlier this year.. Despite antiemetics she continues to have frequent vomiting and an NG tube has since been inserted with improvement in her symptoms. She also denies fever, chills, sweats, cold and flu symptoms, sick contacts, chest pain, pleuritic pain, and dysphagia. Review of Systems Review of Systems: Twelve systems were reviewed and are negative except for as per HPI. [facility] Past Medical History Medical History (Updated 01/20/22 @ 23:55 by Josefina Kerr PA-C) Cancer of right breast (~2017) Status post lumpectomy, chemotherapy, and radiation. Chronic anticoagulation Duodenal ulcer Hypertension Iron deficiency anemia Mitral stenosis Morbid obesity Paroxysmal atrial fibrillation Partial gastric outlet obstruction Pulmonary HTN severe - PA 62 mmHg Surgical History Surgical History History of fusion of cervical spine C5-C6 fusion after fracture. History of hernia repair History of lumpectomy of right breast For breast cancer. History of permanent cardiac pacemaker placement History of total hysterectomy with bilateral salpingo-oophorectomy (BSO) Status post debridement Left heel wound debridement. Family History Family History Father Congestive heart failure Heart disease Sibling Diabetes mellitus Mother Breast cancer Sibling Heart disease Social History Social History (Updated 01/20/22 @ 23:48 by Josefina Kerr PA-C) Social History: The patient is originally from [place], but moved to [place] in spring 2019 to live with her daughter however she is now living in her own apartment. She is nonambulatory and transfers with a [employer]. Her daughter and caretakers come in several hours a day. 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 She smoked upwards of 2 packs of cigarettes a day for 40 years and quit in 2009. She denies alcohol and illicit substance use. Her only child, daughter Zoie Peguero, is her surrogate decision maker and she wishes to be a full code. Spiritual care concerns: No Meds Home Medications and Allergies Home Medications Medication Instructions Recorded Confirmed Type calcitriol 0.25 mcg capsule 0.25 mcg PO DAILY 12/20/19 01/20/22 History diltiazem HCl 180 mg 180 mg PO HS 12/20/19 01/20/22 History capsule,extended release 24 hr (Cardizem CD) fluticasone propionate 50 2 spray intranasal PRN PRN 12/20/19 01/20/22 History mcg/actuatio
[2022-01-20 20:24] VITALS: BP 160/89; PULSE 63; RESP 18; TEMP 36.9; O2SAT 95
--- NOTE | 2022-01-20 20:30 | ADMGEN ---
This patient, Ashley Croft, was admitted to Medical Room 259-. Patient/family oriented to hospital policies and general routines including ID bracelet, bed and alarms, visiting hours, pain management, procedures, bathroom and other care routines, personal items, smoking policy, room service/diet, and visiting hours. Information on how to activate the Rapid Response Team has been discussed. Patient/Family are encouraged to report perceived risks to care and to ask questions if they do not understand what they are told or what they should do.
[2022-01-20 20:52] LABS: Hematocrit 58.8 % (37.0-47.0); Hemoglobin 18.4 g/dL (12.0-15.0)
[2022-01-20 21:16] VITALS: BMI 43.2
[2022-01-20 21:21] LABS: Troponin I 0.052 ng/mL (0.000-0.034)
[2022-01-20 23:18] VITALS: BP 146/80; PULSE 60; RESP 18; TEMP 36.3; O2SAT 96
[2022-01-20 23:19] LABS: Troponin I 0.057 ng/mL (0.000-0.034)
[2022-01-21] VITALS (7 sets, daily range): BP systolic 150–165; BP diastolic 73–110; PULSE 60–100; RESP 18–20; TEMP 36–37.1; O2SAT 62–99
[2022-01-21 00:58] LABS: Hematocrit 52.3 % (37.0-47.0); Hemoglobin 17.2 g/dL (12.0-15.0)
[2022-01-21 01:34] LABS: Gastric Negative Control Negative; Gastric Positive Control Positive; Occult Blood Gastric Fluid Negative; pH Gastric Fluid 3 (1-8)
[2022-01-21] MEDS: WATER FOR IRRIGATION, STERILE 1,000 ML BOTTLE 1000 ML (03:29)
[2022-01-21 05:24] LABS: Basophils Absolute Auto 0.1 K/mm3 (0.0-0.1); Basophils Percent Auto 0.4 % (0.2-1.2); Eosinophils Absolute Auto 0.1 K/mm3 (0-0.3); Eosinophils Percent Auto 0.8 % (0-4.4); Hematocrit 49.1 % (37.0-47.0); Hemoglobin 15.6 g/dL (12.0-15.0); Immature Granulocyte Absolute 0.04 K/mm3 (0.00-0.031); Immature Granulocyte Percent A 0.3 % (0-0.5); Lymphocytes Absolute Auto 1.59 K/mm3 (0.9-3.2); Lymphocytes Percent Auto 13.6 % (18.3-44.2); Mean Corpuscular HGB Conc 31.8 g/dl (32-36); Mean Corpuscular Hemoglobin 29.3 pg (26-34); Mean Corpuscular Volume 92.3 fl (80-100); Mean Platelet Volume 10.6 fl (7.4-10.4); Monocytes Absolute Auto 0.9 K/mm3 (0.1-0.6); Monocytes Percent Auto 7.4 % (2.6-8.5); Neutrophils Absolute Auto 9.1 K/mm3 (1.3-6.7); Neutrophils Percent Auto 77.5 % (45.5-73.1); Platelet Count Result 220 k/mm3 (150-375); Red Blood Count 5.32 M/mm3 (4.2-5.4); Red Cell Distribution Width 15.2 % (11.5-14.5); White Blood Count 11.7 K/mm3 (4.5-10.0)
[2022-01-21 05:33] LABS: Alanine Aminotransferase 15 U/L (6-35); Albumin Level 3.3 g/dL (3.5-5.1); Alkaline Phosphatase 75 U/L (38-126); Anion Gap 11 mmol/L (8-16); Aspartate Amino Transferase 24 U/L (14-36); Blood Urea Nitrogen 29 mg/dL (7-17); Calcium 8.3 mg/dL (8.4-10.2); Carbon Dioxide 33 mmol/L (22-30); Chloride 103 mmol/L (98-107); Estimated CRCL calculation 52 ml/min; Estimated Glomerular Filt Rate 54; Glucose 129 mg/dL (65-110); Magnesium 2.2 mg/dL (1.6-2.3); Potassium 3.3 mmol/L (3.4-5.0); Sodium 147 mmol/L (137-145)
[2022-01-21 05:59] LABS: Alveolar/Arterial O2 Gradient 82.7 mmHg; Base Excess ABG 5.4 mEq/l (+/-2.0); Fractional Inspired Oxygen 32 %; Methemoglobin ABG 0.4 %THb (0-1.5); Oxygen Content ABG 21.6 %vol (16.0-22.0); Oxyhemoglobin 94.1 % THb (90.0-100.0); PCO2 ABG 53.5 mmHg (35.0-45.0); PO2 ABG 82.9 mmHg (80.0-100.0); PO2 FiO2 Ratio Arterial Blood 2.59 %; Reduced Hemoglobin 4.5 %THb (0-5.0); Total Hemoglobin 16.3 g/dL (12.0-18.0); pH ABG 7.394 (7.350-7.450)
[2022-01-21 06:04] LABS: Modified Allen's Test Pass; Site Drawn LEFT RADIAL
[2022-01-21 06:05] LABS: Device NASAL CANNULA
[2022-01-21] MEDS: PANTOPRAZOLE SODIUM IV 40 MG VIAL IV PUSH ×2 (08:02→20:29)
--- NOTE | 2022-01-21 08:46 | PM.IMPN ---
Progress Note: A&P Assessment and Plan (1) Aspiration pneumonia: Code(s): J69.0 - Pneumonitis due to inhalation of food and vomit Status: Acute (2) Ventral hernia: Code(s): K43.9 - Ventral hernia without obstruction or gangrene Status: Acute (3) Intractable nausea and vomiting: Code(s): R11.2 - Nausea with vomiting, unspecified Status: Acute (4) Elevated troponin: Code(s): R77.8 - Other specified abnormalities of plasma proteins Status: Acute (5) Hypokalemia: Code(s): E87.6 - Hypokalemia Status: Acute (6) Paroxysmal atrial fibrillation: Code(s): I48.0 - Paroxysmal atrial fibrillation Status: Acute (7) Polycythemia: Code(s): D75.1 - Secondary polycythemia Status: Acute (8) Chronic anticoagulation: Code(s): Z79.01 - long term care administrator (current) use of anticoagulants Status: Acute Plan 01/20/22 The patient presented to the emergency department today for nausea and vomiting the last several days. CT of the abdomen and pelvis showed a large ventral hernia but no mention of obstruction. Due to persistent and intractable nausea and vomiting, an NG tube has been inserted and she is feeling a lot better.? At the time of this dictation she has had almost 1 liter of fluid out. Given history of partial gastric obstruction, GI has been consulted and their input is appreciated. I believe surgery was also consulted by the ED physician. Check gastroccult. Hold Xarelto for now. Her hemoglobin and hematocrit are stable and in fact she has polycythemia dating back well over year, it is unclear whether not she has had a workup for this. ABG has been ordered to evaluate for possible chronic hypoxia which is a strong possibility with her morbid obesity, pulmonary hypertension, and probable COPD given years of smoking. With concerns for aspiration pneumonia, she will be started on antibiotics. Attempt sputum for culture. Her potassium will be replaced and monitored. Troponin is mildly elevated has remained stable, not indicative of acute coronary syndrome. Most likely a type 2 AL? from hypoxia. She is in AFib in is rate controlled. 01/21/22 symptoms improved w NGT remains NPO waiting for surgical eval cont current care hydralazine for HTN PRN prior level of functioning transfer to wheelchair Subjective Date/time seen: 01/21/22 08:46 pt reports she is feeling a little better, would like to drink coffee. Does report HTN as PMI but is unsure what medication she take for it. RN requested to call [facility] to confirm. Review of Systems Review of Systems: All systems reviewed & are unremarkable except as noted in HPI and below Exam Narrative: GEN: NAD, AAOx3, cooperative , morbidly obese HEENT: NCAT, NGT to LIS, EOMI Neck: no JVD Heart: IRR Lungs: bibasilar crackles Abd: soft, NT, ND, bowel sounds normoactive Ext: no cyanosis, no clubbing, no edema Neuro: CN intact appears to have expressive aphasia Psych: mood and affect congruent Objective Data Vital Signs Vital Signs: Vital Signs - 24 hr 01/20/22 15:27 01/20/22 15:42 01/20/22 19:44 Temperature 98.2 F Pulse Rate 68 65 74 Respiratory Rate 18 20 20 Blood Pressure 175/102 H 175/102 H 175/102 H Pulse Oximetry 90 97 95 Oxygen Delivery Room Air 01/20/22 20:24 01/20/22 23:18 01/21/22 03:41 Temperature 98.4 F 97.3 F L 98.8 F Pulse Rate 63 60 73 Respiratory Rate 18 18 20 Blood Pressure 160/89 H 146/80 H 150/74 H Pulse Oximetry 95 96 90 Oxygen Delivery 01/21/22 08:00 Temperature 97.1 F L Pulse Rate 99 Respiratory Rate 18 Blood Pressure 150/110 H Pulse Oximetry 97 Oxygen Delivery Intake/Output Intake/Output: Intake & Output 01/18/22 01/19/22 01/20/22 01/21/22 23:59 23:59 23:59 23:59 Intake Total 1570 100 Output Total 900 Balance 1570 -800 Meds/Results Medications: Active Medications Generic Name Dose Route Start Last Admin Trade Name Cheryl Norton
[2022-01-21] MEDS: FLUTICASONE/UMECLIDIN/VILANTER 100-62.5-25 MCG ELLIPTA 1 PUFF INHALATION (09:00)
[2022-01-21 12:25] LABS: Hematocrit 50.4 % (37.0-47.0); Hemoglobin 15.7 g/dL (12.0-15.0)
[2022-01-21] MEDS: hydrALAZINE HCL 20 MG/ML VIAL 5 MG IV PUSH (12:39)
--- NOTE | 2022-01-21 16:14 | WPDGICN ---
Assessment and Plan Assessment and plan (1) Intractable nausea and vomiting: Code(s): R11.2 - Nausea with vomiting, unspecified Status: Acute Assessment and Plan: noted large ventral hernia and distended stomach, wonder if could have partial outlet obstruction- better after NGT was placed also had coffee ground emesis will do EGD to assess if peptic ulcer disease, esophagitis but also ask surgery to assess on patient given large ventral hernia. She will be high risk surgery because morbid obesity (2) Ventral hernia: Code(s): K43.9 - Ventral hernia without obstruction or gangrene Status: Acute Assessment and Plan: surgery to see (3) Coffee ground emesis: Code(s): K92.0 - Hematemesis Status: Acute Assessment and Plan: iv protonix hold xarelto egd in am (4) Paroxysmal atrial fibrillation: Code(s): I48.0 - Paroxysmal atrial fibrillation Status: Acute (5) Chronic anticoagulation: Code(s): Z79.01 - shelter (current) use of anticoagulants Status: Acute (6) Aspiration pneumonia: Code(s): J69.0 - Pneumonitis due to inhalation of food and vomit Status: Acute (7) Morbid obesity: Code(s): E66.01 - Morbid (severe) obesity due to excess calories Status: Acute GI Consult Note Consult date/time: 01/21/22 16:14 Reason for consult: n/v, coffee ground emesis, large ventral hernia HPI: Ashley Croft is a 76 year old female with history of morbidly obese who is bed-bound, history of breast cancer, hypertension, paroxysmal atrial fibrillation on xarelto, partial gastric outlet obstruction, in the past due duodenal ulcer (repeat EGD 2020 normal) and also known large ventral hernia. She presented to the emergency department via EMS from home for evaluation of recurrent nausea and vomiting for several days then noted coffee ground material and decided to come here. CT of the abdomen pelvis showed right lower lobe opacities which may reflect aspiration and among other things a massive ventral hernia containing large portions of the stomach, small, and large bowel as well as gallbladder. NGT was placed and obtained more than 1 liter gastric content with significant improvement on symptom. hb 15.6. Liver enzymes normal. Review of Systems Constitutional: Constitutional: Denies chills Eyes: Eyes: Denies blurry vision ENT: Reports Normal hearing present Cardiovascular: Cardiovascular: Denies chest pain Respiratory: Respiratory: Denies wheezing Gastrointestinal: Gastrointestinal: Reports nausea and Reports vomiting Genitourinary: Genitourinary: Denies hematuria Musculoskeletal: Musculoskeletal: Denies myalgias Integumentary/Breasts: Skin/Breast: Denies rash PMF Past Medical History Medical History (Updated 01/21/22 @ 16:19 by Kosta Werner MD) Cancer of right breast (~2017) Status post lumpectomy, chemotherapy, and radiation. Chronic anticoagulation Coffee ground emesis Duodenal ulcer Hypertension Iron deficiency anemia Mitral stenosis Morbid obesity Paroxysmal atrial fibrillation Partial gastric outlet obstruction Pulmonary HTN severe - PA 62 mmHg Surgical History Surgical History History of fusion of cervical spine C5-C6 fusion after fracture. History of hernia repair History of lumpectomy of right breast For breast cancer. History of permanent cardiac pacemaker placement History of total hysterectomy with bilateral salpingo-oophorectomy (BSO) Status post debridement Left heel wound debridement. Family History Family History Father Congestive heart failure Heart disease Sibling Diabetes mellitus Mother Breast cancer Sibling Heart disease Social History Social History (Updated 01/20/22 @ 23:48 by Josefina Kerr PA-C) Social History: The patient is orlymiriam
--- NOTE | 2022-01-21 16:29 | PM.CNGS ---
Assessment and Plan Assessment and plan (1) Vomiting: Code(s): R11.10 - Vomiting, unspecified Status: Acute Assessment and Plan: improved after nasogastric tube placed. Etiology unclear. Hernia and stomach are not incarcerated. Do not feel that hernia involvement with the stomach is the source of the emesis. I agree with EGD. She had an ulcer when this was done in 2019. She could well have another ulcer. Also patient describes that the change from her apixaban to Xarelto was associated with nausea. This was done about 1 month ago. Probably can remove NG tube tomorrow at EGD. (2) Chronic anticoagulation: Code(s): Z79.01 - exterminator termite (current) use of anticoagulants Status: Acute Assessment and Plan: On Xarelto for chronic atrial fibrillation. (3) Ventral incisional hernia without obstruction or gangrene: Code(s): K43.2 - Incisional hernia without obstruction or gangrene Status: Acute Assessment and Plan: Extremely large hernia with loss of abdominal domain and chronic evisceration of multiple viscera. With patient's medical conditions and the size of the hernia, she is not in any way a candidate for hernia repair. (4) Paroxysmal atrial fibrillation: Code(s): I48.0 - Paroxysmal atrial fibrillation Status: Acute Assessment and Plan: Current EKG shows atrial fib with rate of 60. She has permanent pacemaker. Intraventricular conduction delay noted on EKG which is new since May. (5) Pulmonary HTN: Code(s): I27.20 - Pulmonary hypertension, unspecified Status: Acute Assessment and Plan: Described as severe with pulmonary artery pressure of 62 mmHg. (6) History of permanent cardiac pacemaker placement: Code(s): Z95.0 - Presence of cardiac pacemaker Status: Acute Assessment and Plan: Sees a inspector cold working at [facility] [employer] in [place]. History of Present Illness Consult details Consult date: 01/21/22 Reason for consult: hernia Requesting physician: Kosta Werner MD Narrative: Patient is a 76-year-old woman who came to the emergency room last evening complaining of vomiting. She had had 2-3 episodes per day for 2 days of emesis. The emesis was reportedly coffee-grounds. The patient does take Xarelto. Patient tells me she has had trouble with nausea and vomiting for about a month. She complained to her primary physician that her apixaban prescription was too expensive. About a month ago he switched her to Xarelto. She relates the vomiting to this change. Admittedly the patient is not a good historian and unable to recall many details. We were asked to see her because she has a very large incisional hernia and concern exists regarding gastric obstruction as the source of her vomiting. Patient reports she has had this hernia for many years, she can not recall how long. She does have a CT scan of the abdomen from December of 2019 that shows a large incisional hernia although not quite as large as it is currently. The patient has multiple medical problems including morbid obesity, COPD, pulmonary hypertension (described as severe PA 62mm Hg), chronic atrial fibrillation, permanent pacemaker, chronic anticoagulation, and breast cancer treated in 2017. Review of records from December 2019 show that she was admitted with coffee-ground emesis at that time. EGD by Dr. Guzmán showed an antral ulcer. Dr. Wang has seen the patient and plans to proceed with EGD tomorrow. Patient did have an NG tube placed and drained approximately a L which relieved the patient's discomfort and nausea. Her NG tube is still in position. Currently she denies any pain or nausea at all. She is seen now in consultation regarding her hernia and it is possible influence on her current nausea and vomiting. Review of Systems Review of Systems: All systems reviewed & are unremarkable except as noted in HPI and below ( HPI and those i
[2022-01-22] VITALS (10 sets, daily range): BP systolic 121–190; BP diastolic 37–114; PULSE 50–61; RESP 15–20; TEMP 35.8–36.4; O2SAT 93–100
[2022-01-22 05:33] LABS: Basophils Absolute Auto 0.1 K/mm3 (0.0-0.1); Basophils Percent Auto 0.7 % (0.2-1.2); Eosinophils Absolute Auto 0.3 K/mm3 (0-0.3); Eosinophils Percent Auto 2.8 % (0-4.4); Hematocrit 50.9 % (37.0-47.0); Hemoglobin 15.9 g/dL (12.0-15.0); Immature Granulocyte Absolute 0.04 K/mm3 (0.00-0.031); Immature Granulocyte Percent A 0.4 % (0-0.5); Lymphocytes Absolute Auto 1.41 K/mm3 (0.9-3.2); Lymphocytes Percent Auto 14.8 % (18.3-44.2); Mean Corpuscular HGB Conc 31.2 g/dl (32-36); Mean Corpuscular Hemoglobin 29.4 pg (26-34); Mean Corpuscular Volume 94.3 fl (80-100); Mean Platelet Volume 10.5 fl (7.4-10.4); Monocytes Absolute Auto 0.7 K/mm3 (0.1-0.6); Monocytes Percent Auto 6.9 % (2.6-8.5); Neutrophils Absolute Auto 7.1 K/mm3 (1.3-6.7); Neutrophils Percent Auto 74.4 % (45.5-73.1); Platelet Count Result 203 k/mm3 (150-375); Red Cell Distribution Width 14.9 % (11.5-14.5); White Blood Count 9.5 K/mm3 (4.5-10.0)
[2022-01-22 05:54] LABS: Alanine Aminotransferase 14 U/L (6-35); Albumin Level 3.4 g/dL (3.5-5.1); Alkaline Phosphatase 69 U/L (38-126); Anion Gap 12 mmol/L (8-16); Aspartate Amino Transferase 25 U/L (14-36); Bilirubin,Total 1.2 mg/dL (0.2-1.3); Blood Urea Nitrogen 27 mg/dL (7-17); Calcium 8.5 mg/dL (8.4-10.2); Carbon Dioxide 30 mmol/L (22-30); Chloride 105 mmol/L (98-107); Estimated CRCL calculation 63 ml/min; Estimated Glomerular Filt Rate > 60; Glucose 100 mg/dL (65-110); Sodium 147 mmol/L (137-145)
[2022-01-22] MEDS: PANTOPRAZOLE SODIUM IV 40 MG VIAL IV PUSH (08:10)
[2022-01-22] MEDS: FLUTICASONE/UMECLIDIN/VILANTER 100-62.5-25 MCG ELLIPTA 1 PUFF INHALATION (08:38)
--- NOTE | 2022-01-22 08:39 | PM.IMPN ---
Progress Note: A&P Assessment and Plan (1) Aspiration pneumonia: Code(s): J69.0 - Pneumonitis due to inhalation of food and vomit Status: Acute (2) Intractable nausea and vomiting: Code(s): R11.2 - Nausea with vomiting, unspecified Status: Acute (3) Elevated troponin: Code(s): R77.8 - Other specified abnormalities of plasma proteins Status: Acute (4) Hypokalemia: Code(s): E87.6 - Hypokalemia Status: Acute (5) Paroxysmal atrial fibrillation: Code(s): I48.0 - Paroxysmal atrial fibrillation Status: Acute (6) Polycythemia: Code(s): D75.1 - Secondary polycythemia Status: Acute (7) Chronic anticoagulation: Code(s): Z79.01 - long term care administrator (current) use of anticoagulants Status: Acute Plan 01/20/22 The patient presented to the emergency department today for nausea and vomiting the last several days. CT of the abdomen and pelvis showed a large ventral hernia but no mention of obstruction. Due to persistent and intractable nausea and vomiting, an NG tube has been inserted and she is feeling a lot better.? At the time of this dictation she has had almost 1 liter of fluid out. Given history of partial gastric obstruction, GI has been consulted and their input is appreciated. I believe surgery was also consulted by the ED physician. Check gastroccult. Hold Xarelto for now. Her hemoglobin and hematocrit are stable and in fact she has polycythemia dating back well over year, it is unclear whether not she has had a workup for this. ABG has been ordered to evaluate for possible chronic hypoxia which is a strong possibility with her morbid obesity, pulmonary hypertension, and probable COPD given years of smoking. With concerns for aspiration pneumonia, she will be started on antibiotics. Attempt sputum for culture. Her potassium will be replaced and monitored. Troponin is mildly elevated has remained stable, not indicative of acute coronary syndrome. Most likely a type 2 [place]? from hypoxia. She is in AFib in is rate controlled. 01/21/22 symptoms improved w NGT remains NPO waiting for surgical eval cont current care hydralazine for HTN PRN prior level of functioning transfer to wheelchair 01/22/22 EGD today that demonstrated barretts esophagus restart home meds CLD hydralazine PRN pt on home BP med but unable to tell us which one Lisinopril low dose ordered, anticipate need to titrate up KCL ordered to replete Subjective Date/time seen: 01/22/22 08:39 pt doing ok waiting for EGD, thirsty wants a cup of coffee Review of Systems Review of Systems: All systems reviewed & are unremarkable except as noted in HPI and below Exam Narrative: GEN: NAD, AAOx3, cooperative , morbidly obese HEENT: NCAT, NGT to LIS, EOMI Neck: no JVD Heart: IRR Lungs: bibasilar crackles Abd: soft, NT, ND, bowel sounds normoactive Ext: no cyanosis, no clubbing, no edema Neuro: CN intact appears to have expressive aphasia Psych: mood and affect congruent Objective Data Vital Signs Vital Signs: Vital Signs - 24 hr 01/21/22 09:03 01/21/22 09:04 01/21/22 12:00 Temperature 97.9 F Pulse Rate 63 100 Respiratory Rate 18 18 Blood Pressure 159/108 H Pulse Oximetry 97 62 L Oxygen Delivery Nasal Cannula Oxygen Flow Rate 3 01/21/22 16:00 01/21/22 19:44 01/22/22 00:00 Temperature 97.8 F 96.8 F L 96.5 F L Pulse Rate 62 60 61 Respiratory Rate 18 20 18 Blood Pressure 165/91 H 156/73 H 162/96 H Pulse Oximetry 99 90 93 Oxygen Delivery Oxygen Flow Rate 01/22/22 04:00 Temperature 96.7 F L Pulse Rate 50 L Respiratory Rate 18 Blood Pressure 151/88 H Pulse Oximetry 95 Oxygen Delivery Oxygen Flow Rate Intake/Output Intake/Output: Intake & Output 01/19/22 01/20/22 01/21/22 01/22/22 23:59 23:59 23:59 23:59 Intake Total 1570 150 100 Output Total 900 400 Balance 1570 -750 -300 Meds/Results Medications: Active Medications
--- NOTE | 2022-01-22 09:05 | PM.PNGS ---
Progress Note: A&P Assessment and Plan (1) Vomiting: Code(s): R11.10 - Vomiting, unspecified Status: Acute Assessment and Plan: no complaints of abdominal pain or nausea at this time. Reason for vomiting not clear. Patient to have EGD today. She did have an antral ulcer when this occurred in 2019. Do not see gastric or other obstruction as the cause of vomiting. (2) Ventral incisional hernia without obstruction or gangrene: Code(s): K43.2 - Incisional hernia without obstruction or gangrene Status: Acute Assessment and Plan: Patient not a candidate for repair. No incarceration. No indication for repair at this time Subjective Subjective Date/Time Seen: 01/22/22 09:05 Patient reports: no new complaints, feels better and pain is less ( No pain and no nausea) Review of Systems Review of Systems: All systems reviewed & are unremarkable except as noted in HPI and below ( HPI) Exam Const: General: cooperative, comfortable, no acute distress, alert and awake Nutritional Appearance: obese Orientation/consciousness: patient oriented x3 GI: Inspection: non-distended, obesity, visible pulsation and other ( NG tube in place) GI Palp: Yes Soft to palpation, No Tenderness to palpation present (GI) and Yes Hernia present Objective Data Vital Signs Vital Signs: Vital Signs - 24 hr 01/21/22 12:00 01/21/22 16:00 01/21/22 19:44 Temperature 36.6 C 36.6 C 36.0 C L Pulse Rate 100 62 60 Respiratory Rate 18 18 20 Blood Pressure 159/108 H 165/91 H 156/73 H Pulse Oximetry 62 L 99 90 Oxygen Delivery Oxygen Flow Rate 01/22/22 00:00 01/22/22 04:00 01/22/22 08:40 Temperature 35.8 C L 35.9 C L Pulse Rate 61 50 L Respiratory Rate 18 18 Blood Pressure 162/96 H 151/88 H Pulse Oximetry 93 95 97 Oxygen Delivery Nasal Cannula Oxygen Flow Rate 3 Intake/Output Intake/Output: Intake & Output 01/19/22 01/20/22 01/21/22 01/22/22 23:59 23:59 23:59 23:59 Intake Total 1570 150 100 Output Total 900 400 Balance 1570 -750 -300 Meds/Results Medications: Active Medications Generic Name Dose Route Start Last Admin Trade Name Freq PRN Reason Stop Dose Admin Hydrocodone Bitart/Acetaminophen 1 tab 01/22/22 08:34 Hydrocodone/Acetaminophen (*Crx) 5-325 Mg Tablet PO Q6H PRN Pain Albuterol 2 puff 01/21/22 00:19 Albuterol Sulfate (*Sp) Aerosol 1 Puff INHALATION QIDRT PRN Shortness Of Breath Apixaban 5 mg 01/24/22 09:00 Apixaban 5 Mg Tablet PO Q12HR [facility] Diltiazem HCl 180 mg 01/22/22 21:00 Diltiazem Hcl Cd 180 Mg Cap.Er.24h PO HS [facility] Fluticasone Propionate 2 spray 01/22/22 08:34 Fluticasone Propionate 0.05% Na Spr 16 Gm Btl (*Bkc) NASAL DAILY PRN Congestion Fluticasone/Umeclidinium/Vilanterol 1 puff 01/21/22 09:00 01/22/22 08:38 Fluticasone/Umeclidin/Vilanter 100-62.5-25 Mcg Ellipta INHALATION 1 puff DAILY [facility] Administration Gabapentin 600 mg 01/22/22 21:00 Gabapentin 300 Mg Capsule PO HS [facility] Gabapentin 300 mg 01/22/22 09:00 Gabapentin 300 Mg Capsule PO QAM [facility] Hydralazine HCl 10 mg 01/22/22 08:32 Hydralazine Hcl 20 Mg/Ml Vial IV PUSH Q8H PRN Blood Pressure - High SBP >140 Hydroxyzine Pamoate 50 mg 01/22/22 21:00 Hydroxyzine Pamoate 25 Mg Capsule PO 02/21/22 20:59 HS [facility] Piperacillin/Tazobactam/Dextrose 3.375 gm in 50 mls @ 100 mls/hr 01/20/22 20:00 01/22/22 08:11 Zosyn 3.375 Gm/D5w 50ml Pm IVPB Infused Q6H [facility] Infusion Letrozole 2.5 mg 01/22/22 09:00 Letrozole (*Chemo) 2.5 Mg Tablet PO DAILY [facility] Lisinopril 10 mg 01/22/22 09:00 Lisinopril 10 Mg Tablet PO DAILY [facility] Melatonin 3 mg 01/22/22 08:34 Melatonin 3 Mg Tablet PO HS PRN Insomnia Ondansetron HCl 4 mg 01/20/22 17:51 Ondansetron Inj 4 Mg/2 Ml Vial IV PUSH Q4H PRN Nausea Pantoprazole Sodium 40 mg 01/21/22 09:
--- NOTE | 2022-01-22 10:27 | WPDANESEPPF ---
Anes - Initial Pre Proc Eval Procedure: Operation Date: 01/22/22 12:30 Proposed Procedures p Esophagogastroduodenoscopy - Kosta Werner MD Date/Time: 01/22/22 10:27 Surgeon: Joi Goss MD Pre Op Diagnosis: Vomiting,Cholecystitis,Aspiration Pneumonia,Ventra Patient Data Age: 76 Gender: F Height: 1.6 m Weight: 108.2 kg Last Vital Signs Temp 35.9 C L 01/22/22 04:00 Pulse 50 L 01/22/22 04:00 Resp 18 01/22/22 04:00 BP 151/88 H 01/22/22 04:00 Pulse Ox 97 01/22/22 08:40 O2 Del Method Nasal Cannula 01/22/22 08:40 O2 Flow Rate 3 01/22/22 08:40 Allergies Allergy/AdvReac Type Severity Reaction Status Date / Time No Known Allergies Allergy Verified 01/22/22 10:51 Home Medications Medication Instructions Recorded Confirmed Type calcitriol 0.25 mcg capsule 0.25 mcg PO DAILY 12/20/19 01/20/22 History diltiazem HCl 180 mg 180 mg PO HS 12/20/19 01/20/22 History capsule,extended release 24 hr (Cardizem CD) fluticasone propionate 50 2 spray intranasal PRN PRN 12/20/19 01/20/22 History mcg/actuation nasal Congestion spray,suspension furosemide 40 mg tablet 40 mg PO DAILY 12/20/19 01/20/22 History gabapentin 300 mg capsule 300 mg PO USEASDIRECTD 12/20/19 01/20/22 History hydrocodone 5 mg-acetaminophen 325 1 tablet PO Q6H PRN Pain 12/20/19 01/20/22 History mg tablet hydroxyzine pamoate 50 mg capsule 50 mg PO HS 12/20/19 01/20/22 History letrozole 2.5 mg tablet 2.5 mg PO DAILY 12/20/19 01/20/22 History melatonin 3 mg tablet 3 mg PO HS PRN Insomnia 12/20/19 01/20/22 History potassium chloride 20 mEq 20 meq PO DAILY 12/20/19 01/20/22 History tablet,extended release albuterol sulfate 90 mcg/actuation 2 puff inhalation QIDRT PRN 05/24/21 01/20/22 Rx aerosol inhaler (Proventil HFA) Shortness Of Breath #6.7 grams dexamethasone 6 mg tablet 6 mg PO DAILY #7 tabs 05/24/21 01/20/22 Rx (Decadron) allopurinol 100 mg tablet 100 mg PO DAILY 01/20/22 01/20/22 History atorvastatin 10 mg tablet 10 mg PO HS 01/20/22 01/20/22 History ergocalciferol (vitamin D2) 1,250 1,250 mcg PO WEEKLY 01/20/22 01/20/22 History mcg (50,000 unit) capsule (Vitamin D2) ferrous sulfate 325 mg PO BID 01/20/22 01/20/22 History fluticasone fur. 100 mcg-umeclid 1 inh inhalation DAILY 01/20/22 01/20/22 History 62.5 mcg-vilant 25 mcg inhalat.powder (Trelegy Ellipta) rivaroxaban 20 mg tablet (Xarelto) 20 mg PO DAILY 01/20/22 01/20/22 History Laboratory Tests 01/21/22 01/22/22 01/22/22 12:15 05:00 05:00 WBC 9.5 K/mm3 K/mm3 (4.5-10.0) RBC 5.40 M/mm3 M/mm3 (4.2-5.4) Hgb 15.7 g/dL H g/dL 15.9 g/dL H g/dL (12.0-15.0) (12.0-15.0) Hct 50.4 % H % 50.9 % H % (37.0-47.0) (37.0-47.0) MCV 94.3 fl fl (80-100) MCH 29.4 pg pg (26-34) MCHC 31.2 g/dl L g/dl (32-36) RDW 14.9 % H % (11.5-14.5) Plt Count 203 k/mm3 k/mm3 (150-375) MPV 10.5 fl H fl (7.4-10.4) Immature Gran % (Auto) 0.4 % % (0-0.5) Neut % (Auto) 74.4 % H % (45.5-73.1) Lymph % (Auto) 14.8 % L % (18.3-44.2) [place] % (Auto) 6.9 % % (2.6-8.5) Eos % (Auto) 2.8 % % (0-4.4) Baso % (Auto) 0.7 % % (0.2-1.2) Lymph # (Auto) 1.41 K/mm3 K/mm3 (0.9-3.2) [place] # (Auto) 0.7 K/mm3 H K/mm3 (0.1-0.6) Eos # (Auto) 0.3 K/mm3 K/mm3 (0-0.3) Baso # (Auto) 0.1 K/mm3 K/mm3 (0.0-0.1) Abs Immat Gran (auto) 0.04 K/mm3 H K/mm3 (0.00-0.031) Absolute Neuts (auto) 7.1 K/mm3 H K/mm3 (1.3-6.7) Absolute Nucleated RBC 0.0 K/mm3 K/mm3 (0.0-0.012) Nucleated RBC % 0.0 % % (0.0-0.2) Sodium 147 mmol/L H mmol/L (137-145) Potassium 3.0 mmol/L L mmol/L (3.4-5.0) Chloride 105 mmol/L mmol/L (98-107) Carbon Dioxide 30 mmol/L mmol/L (22-30) Anion Gap
[2022-01-22] MEDS: LACTATED RINGERS 1,000 ML 150 ML IV CONT (11:00)
--- NOTE | 2022-01-22 11:01 | SUR.PREOP ---
Dr. Donald Montana notified of pt. blood pressures upon arrival to pre-op. No orders received at this time.
[2022-01-22] MEDS: LETROZOLE (*CHEMO) 2.5 MG TABLET PO (12:38)
[2022-01-22] MEDS: POTASSIUM CHLORIDE 20 MEQ TABLET.ER PO (12:41)
[2022-01-22] MEDS: GABAPENTIN 300 MG CAPSULE PO (12:41)
[2022-01-22] MEDS: lisinopriL 10 MG TABLET PO (12:41)
[2022-01-22] MEDS: POTASSIUM CHLORIDE 20 MEQ TABLET 40 MEQ PO (14:28)
[2022-01-22] MEDS: APIXABAN 5 MG TABLET PO (16:42)
--- NOTE | 2022-01-22 18:21 | PC.NURSE ---
Daughter has voiced concerned that switching from name brand eliquis to generic eliquis may have caused this entire scenario.
[2022-01-22] MEDS: GABAPENTIN 300 MG CAPSULE 600 MG PO (20:16)
[2022-01-22] MEDS: hydrOXYzine pamoate 25 MG CAPSULE 50 MG PO (20:17)
[2022-01-23] VITALS (11 sets, daily range): BP systolic 107–139; BP diastolic 42–80; PULSE 50–57; RESP 16–20; TEMP 36.3–36.5; O2SAT 80–100
--- NOTE | 2022-01-23 07:45 | WPDANESPN ---
Anes - Prog Note Post-Op Date/Time: 01/23/22 07:45 Cardiovascular status: normal Respiratory status: normal Airway patency: baseline Mental status: baseline Post-Op hydration status: normal Vital Signs: Last Vital Signs Temp 36.4 C 01/23/22 04:00 Pulse 50 L 01/23/22 04:00 Resp 18 01/23/22 04:00 BP 125/68 01/23/22 04:00 Pulse Ox 100 01/23/22 04:00 O2 Del Method Nasal Cannula 01/22/22 20:00 O2 Flow Rate 3 01/22/22 20:00 Pain Score (VAS): 0/10 I/O: Intake & Output 01/22/22 01/22/22 01/23/22 15:59 23:59 07:59 Intake Total 500 750 50 Output Total 100 Balance 400 750 50 Laboratory Tests 01/22/22 05:00 01/22/22 05:00 Microbiology 01/21/22 16:22 Sputum Sputum Culture - Preliminary Post-procedural complaints: none Patient Feedback: Patient satisfied with anesthetic care.
[2022-01-23] MEDS: APIXABAN 5 MG TABLET PO ×2 (08:52→20:21)
[2022-01-23] MEDS: GABAPENTIN 300 MG CAPSULE PO (08:52)
[2022-01-23] MEDS: LETROZOLE (*CHEMO) 2.5 MG TABLET PO (08:52)
[2022-01-23] MEDS: lisinopriL 10 MG TABLET PO (08:52)
[2022-01-23] MEDS: PANTOPRAZOLE SODIUM IV 40 MG VIAL IV PUSH (08:53)
[2022-01-23] MEDS: POTASSIUM CHLORIDE 20 MEQ TABLET.ER PO (08:53)
--- NOTE | 2022-01-23 09:58 | PM.PNGS ---
Progress Note: A&P Assessment and Plan (1) Vomiting: Code(s): R11.10 - Vomiting, unspecified Status: Acute Assessment and Plan: No further nausea or vomiting. Underwent EGD yesterday without any significant findings that would suggest a cause for the vomiting. No evidence of obstruction associated with her hernia. Okay to advanced her diet as tolerated from our standpoint. We will sign off at this time. Call with any surgical questions or concerns. (2) Ventral incisional hernia without obstruction or gangrene: Code(s): K43.2 - Incisional hernia without obstruction or gangrene Status: Acute Assessment and Plan: Patient not a candidate for repair. No incarceration. No indication for repair at this time. Plan I have discussed the patient's case and plan of care with Dr. Serrano. Subjective Subjective Date/Time Seen: 01/23/22 09:28 Patient reports: no new complaints, feels better, tolerating liquids well, flatus and bowel movement Interval history: Chart reviewed. Patient seen and examined. She is is tolerating a full liquid diet without any issues. She denies any abdominal pain. No nausea or vomiting since the EGD yesterday. Review of Systems Review of Systems: All systems reviewed & are unremarkable except as noted in HPI and below Exam Const: General: comfortable and no acute distress Orientation/consciousness: patient oriented x3 GI: Inspection: non-distended, obesity and visible herniation ( extremely large incisional hernia that is soft and nontender) GI Palp: Yes Soft to palpation and No Tenderness to palpation present (GI) Auscultation: normoactive bowel sounds Objective Data Vital Signs Vital Signs: Vital Signs - 24 hr 01/22/22 10:54 01/22/22 11:50 01/22/22 12:00 Temperature 97 F L Pulse Rate 60 60 55 L Respiratory Rate 16 20 16 Blood Pressure 190/103 H 121/37 L 130/84 Pulse Oximetry 100 100 100 Oxygen Delivery Room Air Simple Face Mask Nasal Cannula Oxygen Flow Rate 3 3 01/22/22 12:10 01/22/22 14:00 01/22/22 18:00 Temperature 97.4 F L 97.5 F L Pulse Rate 56 L 50 L 50 L Respiratory Rate 15 18 16 Blood Pressure 145/114 H 147/59 H 141/47 H Pulse Oximetry 99 99 96 Oxygen Delivery Nasal Cannula Oxygen Flow Rate 2 01/22/22 20:00 01/22/22 20:00 01/23/22 00:00 Temperature 97.4 F L 97.4 F L Pulse Rate 50 L 50 L Respiratory Rate 18 20 Blood Pressure 158/65 H 132/64 Pulse Oximetry 100 100 99 Oxygen Delivery Nasal Cannula Oxygen Flow Rate 3 01/23/22 04:00 Temperature 97.6 F Pulse Rate 50 L Respiratory Rate 18 Blood Pressure 125/68 Pulse Oximetry 100 Oxygen Delivery Oxygen Flow Rate Intake/Output Intake/Output: Intake & Output 01/20/22 01/21/22 01/22/22 01/23/22 23:59 23:59 23:59 23:59 Intake Total 9911 232 0976 530 Output Total 900 500 Balance 1570 -750 800 530 Meds/Results Medications: Active Medications Generic Name Dose Route Start Last Admin Trade Name Freq PRN Reason Stop Dose Admin Hydrocodone Bitart/Acetaminophen 1 tab 01/22/22 08:34 Hydrocodone/Acetaminophen (*Crx) 5-325 Mg Tablet PO Q6H PRN Pain Albuterol 2 puff 01/21/22 00:19 Albuterol Sulfate (*Sp) Aerosol 1 Puff INHALATION QIDRT PRN Shortness Of Breath Apixaban 5 mg 01/22/22 16:10 01/23/22 08:52 Apixaban 5 Mg Tablet PO 5 mg Q12HR [facility] Administration Diltiazem HCl 180 mg 01/22/22 21:00 01/22/22 20:24 Diltiazem Hcl Cd 180 Mg Cap.Er.24h PO Not Given HS [facility] Fluticasone Propionate 2 spray 01/22/22 08:34 Fluticasone Propionate 0.05% Na Spr 16 Gm Btl (*Bkc) NASAL DAILY PRN Congestion Fluticasone/Umeclidinium/Vilanterol 1 puff 01/21/22 09:00 01/22/22 08:38 Fluticasone/Umeclidin/Vilanter 100-62.5-25 Mcg Ellipta INHALATION 1 puff DAILY [facility] Administration Gabapentin 600 mg 01/22/22 21:00 01/22/22 20:16 Gabapentin 300 Mg Capsule PO 600 mg HS [facility] Administ
--- NOTE | 2022-01-23 10:49 | WPDGIPROGNO ---
Progress Note: A&P Assessment and Plan (1) Intractable nausea and vomiting: Code(s): R11.2 - Nausea with vomiting, unspecified Status: Acute Assessment and Plan: resolved will advance diet and if she is asymptomatic no objections to discharge (2) Ventral incisional hernia without obstruction or gangrene: Code(s): K43.2 - Incisional hernia without obstruction or gangrene Status: Acute Assessment and Plan: she is not a candidate for surgery, she is comfortable (3) Coffee ground emesis: Code(s): K92.0 - Hematemesis Status: Acute Assessment and Plan: resolved (4) Pulmonary HTN: Code(s): I27.20 - Pulmonary hypertension, unspecified Status: Acute (5) Morbid obesity: Code(s): E66.01 - Morbid (severe) obesity due to excess calories Status: Acute (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 No more nausea and tolerating liquid diet, doing well today Review of Systems Review of Systems: All systems reviewed & are unremarkable except as noted in HPI and below Exam Const: General: comfortable and no acute distress Orientation/consciousness: patient oriented x3 Other: morbid obese HENMT: General nose exam: Normal nares present Eyes: General: appearance normal, both eyes and all related structures Neck: Neck: supple Resp: Auscultation: clear to auscultation bilaterally Cardio: Rate: regular rate GI: Inspection: non-distended, obesity and visible herniation ( extremely large incisional hernia that is soft and nontender) GI Palp: Yes Soft to palpation and No Tenderness to palpation present (GI) Auscultation: normoactive bowel sounds Skin: General skin exam: normal color Neuro: Speech: normal speech Psych: Affect: normal affect Objective Data Vital Signs Vital Signs: Vital Signs - 24 hr 01/22/22 10:54 01/22/22 11:50 01/22/22 12:00 Temperature 97 F L Pulse Rate 60 60 55 L Respiratory Rate 16 20 16 Blood Pressure 190/103 H 121/37 L 130/84 Pulse Oximetry 100 100 100 Oxygen Delivery Room Air Simple Face Mask Nasal Cannula Oxygen Flow Rate 3 3 01/22/22 12:10 01/22/22 14:00 01/22/22 18:00 Temperature 97.4 F L 97.5 F L Pulse Rate 56 L 50 L 50 L Respiratory Rate 15 18 16 Blood Pressure 145/114 H 147/59 H 141/47 H Pulse Oximetry 99 99 96 Oxygen Delivery Nasal Cannula Oxygen Flow Rate 2 01/22/22 20:00 01/22/22 20:00 01/23/22 00:00 Temperature 97.4 F L 97.4 F L Pulse Rate 50 L 50 L Respiratory Rate 18 20 Blood Pressure 158/65 H 132/64 Pulse Oximetry 100 100 99 Oxygen Delivery Nasal Cannula Oxygen Flow Rate 3 01/23/22 04:00 01/23/22 08:00 Temperature 97.6 F 97.6 F Pulse Rate 50 L 50 L Respiratory Rate 18 16 Blood Pressure 125/68 Pulse Oximetry 100 99 Oxygen Delivery Oxygen Flow Rate Intake/Output Intake/Output: Intake & Output 01/20/22 01/21/22 01/22/22 01/23/22 23:59 23:59 23:59 23:59 Intake Total 1991 458 5401 530 Output Total 900 500 Balance 1570 -750 800 530 Meds/Results Medications: Active Medications Generic Name Dose Route Start Last Admin Trade Name Freq PRN Reason Stop Dose Admin Hydrocodone Bitart/Acetaminophen 1 tab 01/22/22 08:34 Hydrocodone/Acetaminophen (*Crx) 5-325 Mg Tablet PO Q6H PRN Pain Albuterol 2 puff 01/21/22 00:19 Albuterol Sulfate (*Sp) Aerosol 1 Puff INHALATION QIDRT PRN Shortness Of Breath Apixaban 5 mg 01/22/22 16:10 01/23/22 08:52 Apixaban 5 Mg Tablet PO 5 mg Q12HR [facility] Administration Diltiazem HCl 180 mg 01/22/22 21:00 01/22/22 20:24 Diltiazem Hcl Cd 180 Mg Cap.Er.24h PO Not Given HS [facility] Fluticasone Propionate 2 spray 01/22/22 08:34 Fluticasone Propionate 0.05% Na Spr 16
--- NOTE | 2022-01-23 13:03 | PC.NURSE ---
Daughter Zoie has stated 24 hours notice is needed before discharge so that caregiver arrangements can be made. Also stated ambulance transportation is a must.
[2022-01-23] MEDS: FLUTICASONE/UMECLIDIN/VILANTER 100-62.5-25 MCG ELLIPTA 1 PUFF INHALATION (13:06)
[2022-01-23 13:14] LABS: Basophils Absolute Auto 0.1 K/mm3 (0.0-0.1); Basophils Percent Auto 0.6 % (0.2-1.2); Eosinophils Absolute Auto 0.3 K/mm3 (0-0.3); Hematocrit 52.5 % (37.0-47.0); Hemoglobin 16.3 g/dL (12.0-15.0); Immature Granulocyte Absolute 0.05 K/mm3 (0.00-0.031); Immature Granulocyte Percent A 0.5 % (0-0.5); Lymphocytes Absolute Auto 1.77 K/mm3 (0.9-3.2); Lymphocytes Percent Auto 17.1 % (18.3-44.2); Mean Corpuscular Hemoglobin 29.1 pg (26-34); Mean Corpuscular Volume 93.8 fl (80-100); Mean Platelet Volume 10.4 fl (7.4-10.4); Monocytes Absolute Auto 0.7 K/mm3 (0.1-0.6); Monocytes Percent Auto 6.6 % (2.6-8.5); Neutrophils Absolute Auto 7.5 K/mm3 (1.3-6.7); Neutrophils Percent Auto 72.2 % (45.5-73.1); Platelet Count Result 185 k/mm3 (150-375); Red Cell Distribution Width 14.9 % (11.5-14.5); White Blood Count 10.4 K/mm3 (4.5-10.0)
[2022-01-23] MEDS: PANTOPRAZOLE 40 MG TABLET PO (13:27)
--- NOTE | 2022-01-23 14:30 | PM.IMPN ---
Progress Note: A&P Assessment and Plan (1) Aspiration pneumonia: Code(s): J69.0 - Pneumonitis due to inhalation of food and vomit Status: Acute (2) Intractable nausea and vomiting: Code(s): R11.2 - Nausea with vomiting, unspecified Status: Acute (3) Elevated troponin: Code(s): R77.8 - Other specified abnormalities of plasma proteins Status: Acute (4) Hypokalemia: Code(s): E87.6 - Hypokalemia Status: Acute (5) Paroxysmal atrial fibrillation: Code(s): I48.0 - Paroxysmal atrial fibrillation Status: Acute (6) Polycythemia: Code(s): D75.1 - Secondary polycythemia Status: Acute (7) Chronic anticoagulation: Code(s): 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 CT of the abdomen and pelvis showed a large ventral hernia but no mention of obstruction. Due to persistent and intractable nausea and vomiting, an NG tube has been inserted and began to feel better.? At the time of this dictation she has had almost 1 liter of fluid out. Given history of partial gastric obstruction, GI has been consulted and their input is appreciated. I believe surgery was also consulted by the ED physician. Check gastroccult. Hold Xarelto for now. Her hemoglobin and hematocrit are stable and in fact she has polycythemia dating back well over year, it is unclear whether not she has had a workup for this. ABG has been ordered to evaluate for possible chronic hypoxia which is a strong possibility with her morbid obesity, pulmonary hypertension, and probable COPD given years of smoking. With concerns for aspiration pneumonia, she will be started on antibiotics. Attempt sputum for culture. Her potassium will be replaced and monitored. Troponin is mildly elevated has remained stable, not indicative of acute coronary syndrome. Most likely a type 2 [place]? from hypoxia. She is in AFib in is rate controlled. 01/21/22 symptoms improved w NGT remains NPO waiting for surgical eval cont current care hydralazine for HTN PRN prior level of functioning transfer to wheelchair 01/22/22 EGD today that demonstrated barretts esophagus restart home meds CLD hydralazine PRN pt on home BP med but unable to tell us which one Lisinopril low dose ordered, anticipate need to titrate up KCL ordered to replete 01/23/22 Sputum growing Gram-negative bacilli. Blood culture no growth to date Diet advanced. Add aspiration precautions. She is wheel chair bound; will have her OOB to the chair Adjust abx once sputum cx returns Subjective Date/time seen: 01/23/22 14:30 Interval history: 76yo female with hx of chronic resp failure (2L), breast CA, pAFib and HTN here for n/v. Assuming care. Chart reviewed. No chest pain or shortness of breath. Coughing is better. Eating okay now. No further nausea or vomiting. Exam Narrative: AF 97.6 107/65 50 16 97% 3L Gen - NARD lying semi-recumbent in bed Chest - CTA bilaterally anteriorly and in the flanks, nml RR CV - irregularly irregular Abd - Soft, obese, NT Ext - No pedal edema Psych - Nml mood and affect Skin - Warm and dry Objective Data Vital Signs Vital Signs: Vital Signs - 24 hr 01/22/22 18:00 01/22/22 20:00 01/22/22 20:00 Temperature 97.5 F L 97.4 F L Pulse Rate 50 L 50 L Respiratory Rate 16 18 Blood Pressure 141/47 H 158/65 H Pulse Oximetry 96 100 100 Oxygen Delivery Nasal Cannula Oxygen Flow Rate 3 01/23/22 00:00 01/23/22 04:00 01/23/22 08:00 Temperature 97.4 F L 97.6 F 97.6 F Pulse Rate 50 L 50 L 50 L Respiratory Rate 20 18 16 Blood Pressure 132/64 125/68 Pulse Oximetry 99 100 99 Oxygen Delivery Oxygen Flow Rate 01/23/22 08:30 01/23/22 09:15 01/23/22 11:30 Temperature Pulse Rate Respiratory Rate Blood Pressure Pulse Oximetry 99 97 80 L Oxyg
--- NOTE | 2022-01-23 15:36 | PC.NURSE ---
On 01/23/22, the student, [Elmira Kingston], provided care and completed [facility] documentation on this patient. I have reviewed the student's documentation and agree with the findings.
[2022-01-23 16:06] LABS: Alanine Aminotransferase 14 U/L (6-35); Albumin Level 2.9 g/dL (3.5-5.1); Alkaline Phosphatase 56 U/L (38-126); Anion Gap 7 mmol/L (8-16); Aspartate Amino Transferase 22 U/L (14-36); Blood Urea Nitrogen 23 mg/dL (7-17); Calcium 8.3 mg/dL (8.4-10.2); Carbon Dioxide 28 mmol/L (22-30); Chloride 101 mmol/L (98-107); Estimated CRCL calculation 58 ml/min; Estimated Glomerular Filt Rate > 60; Glucose 113 mg/dL (65-110); Potassium 3.7 mmol/L (3.4-5.0); Sodium 136 mmol/L (137-145)
[2022-01-23] MEDS: hydrOXYzine pamoate 25 MG CAPSULE 50 MG PO (20:21)
[2022-01-23] MEDS: dilTIAZem HCL CD 180 MG CAP.ER.24H PO (20:21)
[2022-01-23] MEDS: GABAPENTIN 300 MG CAPSULE 600 MG PO (20:21)
[2022-01-24] VITALS (9 sets, daily range): BP systolic 132–155; BP diastolic 52–80; PULSE 50–53; RESP 20–21; TEMP 36.1–36.7; O2SAT 97–100
[2022-01-24 08:12] LABS: Glucose Point of Care 87 mg/dl (65-105)
[2022-01-24] MEDS: LETROZOLE (*CHEMO) 2.5 MG TABLET PO (08:24)
[2022-01-24] MEDS: POTASSIUM CHLORIDE 20 MEQ TABLET.ER PO (08:24)
[2022-01-24] MEDS: lisinopriL 10 MG TABLET PO (08:25)
[2022-01-24] MEDS: GABAPENTIN 300 MG CAPSULE PO (08:25)
[2022-01-24] MEDS: APIXABAN 5 MG TABLET PO ×2 (08:25→20:42)
[2022-01-24] MEDS: PANTOPRAZOLE 40 MG TABLET PO (08:25)
[2022-01-24] MEDS: FLUTICASONE/UMECLIDIN/VILANTER 100-62.5-25 MCG ELLIPTA 1 PUFF INHALATION (08:47)
--- NOTE | 2022-01-24 13:17 | WPDGIPROGNO ---
Progress Note: A&P Assessment and Plan (1) Intractable nausea and vomiting: Code(s): R11.2 - Nausea with vomiting, unspecified Status: Acute Assessment and Plan: resolved tolerating diet and no more nausea will follow from afar, call if questions (2) Ventral incisional hernia without obstruction or gangrene: Code(s): K43.2 - Incisional hernia without obstruction or gangrene Status: Acute Assessment and Plan: she is not a candidate for surgery, she is comfortable (3) Coffee ground emesis: Code(s): K92.0 - Hematemesis Status: Acute Assessment and Plan: resolved s/p EGD without signs of bleeding (4) Aspiration pneumonia: Code(s): J69.0 - Pneumonitis due to inhalation of food and vomit Status: Acute (5) Pulmonary HTN: Code(s): I27.20 - Pulmonary hypertension, unspecified Status: Acute Assessment and Plan: chronic, by primary team (6) Morbid obesity: Code(s): E66.01 - Morbid (severe) obesity due to excess calories Status: Acute (7) 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 - Macdonald's esophagus without dysplasia Status: Acute Assessment and Plan: on ppi Subjective Date/time seen: 01/24/22 13:17 Interval history: she has been eating regular diet without any more nausea, she is comfortable Review of Systems Review of Systems: All systems reviewed & are unremarkable except as noted in HPI and below Exam Const: General: comfortable and no acute distress Orientation/consciousness: patient oriented x3 Other: morbid obese HENMT: General nose exam: Normal nares present Eyes: General: appearance normal, both eyes and all related structures Neck: Neck: supple Resp: Auscultation: clear to auscultation bilaterally Cardio: Rhythm: abnormal rhythm GI: Inspection: non-distended, obesity and visible herniation ( extremely large incisional hernia that is soft and nontender) GI Palp: Yes Soft to palpation and No Tenderness to palpation present (GI) Auscultation: normoactive bowel sounds Skin: General skin exam: normal color Neuro: Speech: normal speech Psych: Affect: normal affect Objective Data Vital Signs Vital Signs: Vital Signs - 24 hr 01/23/22 14:00 01/23/22 18:16 01/23/22 20:00 Temperature 97.6 F 97.7 F Pulse Rate 50 L 57 L Respiratory Rate 17 20 Blood Pressure 109/80 122/68 Pulse Oximetry 99 100 100 Oxygen Delivery Nasal Cannula Oxygen Flow Rate 3 01/23/22 22:34 01/24/22 02:40 01/24/22 06:00 Temperature 97.6 F 97.0 F L 97.4 F L Pulse Rate 50 L 50 L 50 L Respiratory Rate 18 21 H 21 H Blood Pressure 139/42 L 148/80 H 138/71 Pulse Oximetry 96 100 100 Oxygen Delivery Oxygen Flow Rate 01/24/22 08:25 01/24/22 08:00 01/24/22 10:00 Temperature 97.6 F Pulse Rate 51 L Respiratory Rate 20 Blood Pressure 138/71 Pulse Oximetry 99 97 98 Oxygen Delivery Nasal Cannula Nasal Cannula Oxygen Flow Rate 3 2 Intake/Output Intake/Output: Intake & Output 01/21/22 01/22/22 01/23/22 01/24/22 23:59 23:59 23:59 23:59 Intake Total 150 1300 1370 1680 Output Total 900 500 Balance -630 525 4451 1680 Meds/Results Medications: Active Medications Generic Name Dose Route Start Last Admin Trade Name Freq PRN Reason Stop Dose Admin Hydrocodone Bitart/Acetaminophen 1 tab 01/22/22 08:34 Hydrocodone/Acetaminophen (*Crx) 5-325 Mg Tablet PO Q6H PRN Pain Albuterol 2 puff 01/21/22 00:19 Albuterol Sulfate (*Sp) Aerosol 1 Puff INHALATION QIDRT PRN Shortness Of Breath Apixaban 5 mg 01/22/22 16:10 01/24/22 08:25 Apixaban 5 Mg Tablet PO 5 mg Q12HR GREG Administration Diltiazem HCl 180 mg 01/22/22 21:00 01/23/22 20:21 Diltiazem Hcl Cd 180 Mg Cap.Er.24h PO 180 mg HS GREG Administration Fluticasone Propionate 2 spray 01/22/22 08:34 Fluticasone Propionate 0.05% Na Spr 16 Gm Btl (*Bkc) NASAL SAM
--- NOTE | 2022-01-24 14:13 | PM.IMPN ---
Progress Note: A&P Assessment and Plan (1) Aspiration pneumonia: Code(s): J69.0 - Pneumonitis due to inhalation of food and vomit Status: Acute (2) Intractable nausea and vomiting: Code(s): R11.2 - Nausea with vomiting, unspecified Status: Acute (3) Elevated troponin: Code(s): R77.8 - Other specified abnormalities of plasma proteins Status: Acute (4) Hypokalemia: Code(s): E87.6 - Hypokalemia Status: Acute (5) Paroxysmal atrial fibrillation: Code(s): I48.0 - Paroxysmal atrial fibrillation Status: Acute (6) Polycythemia: Code(s): D75.1 - Secondary polycythemia Status: Acute (7) Chronic anticoagulation: Code(s): Z79.01 - care home (current) use of anticoagulants Status: Acute Plan 01/20/22 The patient presented to the emergency department for nausea and vomiting the last several days. CT of the abdomen and pelvis showed a large ventral hernia but no mention of obstruction. Due to persistent and intractable nausea and vomiting, an NG tube has been inserted and began to feel better.? At the time of this dictation she has had almost 1 liter of fluid out. Given history of partial gastric obstruction, GI has been consulted and their input is appreciated. I believe surgery was also consulted by the ED physician. Check gastroccult. Hold Xarelto for now. Her hemoglobin and hematocrit are stable and in fact she has polycythemia dating back well over year, it is unclear whether not she has had a workup for this. ABG has been ordered to evaluate for possible chronic hypoxia which is a strong possibility with her morbid obesity, pulmonary hypertension, and probable COPD given years of smoking. With concerns for aspiration pneumonia, she will be started on antibiotics. Attempt sputum for culture. Her potassium will be replaced and monitored. Troponin is mildly elevated has remained stable, not indicative of acute coronary syndrome. Most likely a type 2 NH? from hypoxia. She is in AFib in is rate controlled. 01/21/22 symptoms improved w NGT remains NPO waiting for surgical eval cont current care hydralazine for HTN PRN prior level of functioning transfer to wheelchair 01/22/22 EGD today that demonstrated barretts esophagus restart home meds CLD hydralazine PRN pt on home BP med but unable to tell us which one Lisinopril low dose ordered, anticipate need to titrate up KCL ordered to replete 01/23/22 Sputum growing Gram-negative bacilli. Blood culture no growth to date Diet advanced. Add aspiration precautions. She is wheel chair bound; will have her OOB to the chair Adjust abx once sputum cx returns 01/24/2022 Sputum culture is growing normal oral nora. Blood cultures no growth to date. Will change antibiotics to Augmentin. Case management has been informed the plan is for discharge tomorrow Hopefully caregivers can be available tomorrow to assist with transferring the patient home. Patient has been weaned back down to her 2 L baseline. She is asking about coming off O2 and she was encouraged to discuss this with her doctor Subjective Date/time seen: 01/24/22 14:13 Interval history: 76yo female with hx of chronic resp failure (2L), breast CA, pAFib and HTN here for n/v. No further nausea or vomiting. She is tolerating oral intake. She was out of the bed to the wheelchair yesterday. She does have caregivers at home 7 days a week. Plan is for discharge home and she needs 24 hours so she can arrange for her caregivers to be available to help her. Exam Narrative: AF 97.6 138/71 51 20 98% 2L Gen - NARD Chest -right base inspiratory rhonchi otherwise clear CV - irregularly irregular Abd - Soft, obese, NT Ext - No pedal edema Psych - Nml mood and affect Skin - Warm and dry Objective Data Vital Signs Vital Signs: Vital Signs - 24 hr 01/23/22 18:16 01/23/22 20:00 01/23/22 22:34 Temperature 97.7 F 97.6 F Pulse Ra
[2022-01-24] MEDS: FERROUS SULFATE 324 MG TABLET PO (16:25)
[2022-01-24] MEDS: hydrOXYzine pamoate 25 MG CAPSULE 50 MG PO (20:41)
[2022-01-24] MEDS: GABAPENTIN 300 MG CAPSULE 600 MG PO (20:41)
[2022-01-24] MEDS: dilTIAZem HCL CD 180 MG CAP.ER.24H PO (20:42)
[2022-01-24] MEDS: ATORVASTATIN 10 MG TABLET PO (20:42)
[2022-01-24] MEDS: AMOXICILLIN/CLAVULANATE K 875-125 MG TAB 1 TABLET PO (20:42)
[2022-01-25 06:00] VITALS: BP 147/73; PULSE 50; RESP 20; TEMP 36.3; O2SAT 98
[2022-01-25 06:32] LABS: Anion Gap 10 mmol/L (8-16); Blood Urea Nitrogen 15 mg/dL (7-17); Calcium 7.9 mg/dL (8.4-10.2); Carbon Dioxide 32 mmol/L (22-30); Chloride 103 mmol/L (98-107); Estimated CRCL calculation 55 ml/min; Estimated Glomerular Filt Rate > 60; Glucose 98 mg/dL (65-110); Potassium 3.3 mmol/L (3.4-5.0); Sodium 145 mmol/L (137-145)
[2022-01-25 08:00] VITALS: BP 144/71; PULSE 50; RESP 20; TEMP 36.4; O2SAT 99
[2022-01-25 09:10] VITALS: PULSE 50; RESP 20; O2SAT 96
[2022-01-25] MEDS: POTASSIUM CHLORIDE 20 MEQ TABLET PO (09:28)
[2022-01-25] MEDS: calcitrioL 0.25 MCG CAPSULE PO (09:29)
[2022-01-25] MEDS: LETROZOLE (*CHEMO) 2.5 MG TABLET PO (09:29)
[2022-01-25] MEDS: PANTOPRAZOLE 40 MG TABLET PO (09:29)
[2022-01-25] MEDS: allopurinoL 100 MG TABLET PO (09:30)
[2022-01-25] MEDS: FERROUS SULFATE 324 MG TABLET PO (09:30)
[2022-01-25] MEDS: APIXABAN 5 MG TABLET PO (09:30)
[2022-01-25] MEDS: GABAPENTIN 300 MG CAPSULE PO (09:30)
[2022-01-25] MEDS: FLUTICASONE PROPIONATE 0.05% NA SPR 16 GM BTL (*BKC) 2 SPRAY NASAL (09:31)
[2022-01-25] MEDS: AMOXICILLIN/CLAVULANATE K 875-125 MG TAB 1 TABLET PO (09:34)
[2022-01-25] MEDS: FLUTICASONE/UMECLIDIN/VILANTER 100-62.5-25 MCG ELLIPTA 1 PUFF INHALATION (10:01)
[2022-01-25 10:03] VITALS: O2SAT 96
[2022-01-25 12:00] VITALS: BP 140/74; PULSE 51; RESP 20; TEMP 36.4; O2SAT 98
--- NOTE | 2022-01-25 13:01 | PM.DS ---
DS: Admitting Diagnosis Discharge Date 01/25/22 Admitting Diagnosis Nausea and vomiting DS: Discharge Diagnosis Discharge Diagnosis (1) Aspiration pneumonia: Code(s): J69.0 - Pneumonitis due to inhalation of food and vomit Status: Acute (2) Intractable nausea and vomiting: Code(s): R11.2 - Nausea with vomiting, unspecified Status: Acute (3) Elevated troponin: Code(s): R77.8 - Other specified abnormalities of plasma proteins Status: Acute (4) Hypokalemia: Code(s): E87.6 - Hypokalemia Status: Acute (5) Paroxysmal atrial fibrillation: Code(s): I48.0 - Paroxysmal atrial fibrillation Status: Acute (6) Polycythemia: Code(s): D75.1 - Secondary polycythemia Status: Acute (7) Chronic anticoagulation: Code(s): Z79.01 - [facility] (current) use of anticoagulants Status: Acute DS: Summary Hospital Course Reason for hospitalization: 76yo female with hx of chronic resp failure (2L), breast CA, pAFib and HTN here for n/v. Please see H&P for details Hospital Course: The patient presented to the emergency department for nausea and vomiting the last several days. CT of the abdomen and pelvis showed a large ventral hernia but no mention of obstruction. Due to persistent and intractable nausea and vomiting, an NG tube was inserted and she began to feel better.?Given history of partial gastric obstruction, GI has been consulted. Her HH was stable and in fact she has polycythemia dating back well over year. EGD showed Macdonald's esophagus. NG tube removed and diet resumed. She was started on abx for possible aspiration PNA. She was weaned back down to her 2L NC. Sputum and Blood cultures negative to date. Xarelto was started recently and thought may be causing the nausea so she was changed to Eliquis. She overall did well and was able to be discharged on 01/25/22. Status at Discharge Cognitive/behavioral status at discharge: stable Time Spent with Patient Time attestation: Total time spent providing and/or coordinating discharge services: 34 minutes Time spent: Greater than 30 minutes Exam Narrative: AF 97.6 144/71 50 20 96% 2L Gen - NARD Chest -right base inspiratory rhonchi otherwise clear CV - irregularly irregular Abd - Soft, obese, NT Ext - No pedal edema Psych - Nml mood and affect Skin - Warm and dry DS: Data Data Completed and Pending Labs on day of discharge: Labs from last 24 hours 01/25/22 05:38 Sodium 145 Potassium 3.3 L Chloride 103 Carbon Dioxide 32 H Anion Gap 10 BUN 15 D Creatinine 0.90 Estim Creat Clear Calc 55 Estimated GFR > 60 Glucose 98 Calcium 7.9 L Preliminary micro results at discharge 01/20/22 22:40 Blood Culture - Preliminary Blood 01/20/22 22:40 Blood Culture - Preliminary Blood Discharge Plan Discharge Attending physician on discharge: Aditya Rome Consulting providers: Kosta Werner Discharging Clinician: Aditya Rome Anticipated Discharge Date/Time: 01/25/22 13:08 Patient Disposition: Home, Self-Care Activity: as tolerated Diet: low fiber Discharge Instructions: Check blood pressure 1 to 2 times a day. Record and bring into your doctor for review. Call your doctor if your blood pressure is greater than 180/110. Please complete your antibiotic course even if you are starting to feel well. Take precautions to avoid falls. Rise slowly from a lying or sitting position. Contact your doctor or call 911 and come to the Emergency Room if you have recurrent nausea or other worrisome symptoms. Continue Home O2 at 2L/min. Discuss with your doctor about being weaned off oxygen. Avoid NSAIDs (ibuprofen, naproxen, Aleve). Tylenol is safe to take. Follow-up with your doctor in 1-2 weeks. Please call for appointment. Follow-up with GI doctor as needed. Thank you for using [facility] for your health car
== END 2022-01-25 16:15 | disposition home or self-care (01) | DRG 178 ==
LOC: ANHED 18:17 → ANH2MED 18:51
PROVIDERS: Internal Medicine Gastroenterology; Physician Assistant; Admitting Provider Hospitalist; Emergency Provider Emergency Medicine; PCP Family Medicine; Visit Provider Internal Medicine
PROC: 0DJ08ZZ Inspection of Upper Intestinal Tract, Via Natural or Artificial Opening Endoscopic (ICD-10-PCS; CPT 43235; principal; 2022-01-22 12:30)
DX: J69.0 Pneumonitis due to inhalation of food and vomit (principal); J96.11 Chronic respiratory failure with hypoxia; R11.2 Nausea with vomiting, unspecified; K43.9 Ventral hernia without obstruction or gangrene; E87.6 Hypokalemia; I27.20 Pulmonary hypertension, unspecified; I48.0 Paroxysmal atrial fibrillation; I10 Essential (primary) hypertension; I34.2 Nonrheumatic mitral (valve) stenosis; D50.9 Iron deficiency anemia, unspecified; D75.1 Secondary polycythemia; E66.01 Morbid (severe) obesity due to excess calories; K22.70 Barrett's esophagus without dysplasia; R77.8 Other specified abnormalities of plasma proteins; Z95.0 Presence of cardiac pacemaker; Z79.01 Long term (current) use of anticoagulants; Z90.710 Acquired absence of both cervix and uterus; Z98.1 Arthrodesis status; Z85.3 Personal history of malignant neoplasm of breast; Z87.891 Personal history of nicotine dependence; Z87.11 Personal history of peptic ulcer disease; Z99.3 Dependence on wheelchair; Z99.81 Dependence on supplemental oxygen
CPT/HCPCS: 36415; 36600; 74177; 80048; 80053; 82271; 82375; 82805; 82948; 83050; 83690; 83735; 83986; 84484; 85014; 85018; 85025; 87040; 87070; 87205; 93005; 94640; 96361; 96374; 99285; A9270; C9113; J0360; J2405; J2543; J2704; J3480; J7030; J7040; J7120; Q9967

== ENCOUNTER 2023-01-08 12:45 | Inpatient (IN) | payer MEDICARE, SELFPAY ==
[2023-01-08] VITALS (12 sets, daily range): BP systolic 101–184; BP diastolic 47–96; PULSE 61–79; RESP 16–21; TEMP 36.4–37; O2SAT 88–97; BMI 62.0
--- NOTE | ~2023-01-08 | XR_ITS ---
EXAMINATION: [id number] DATE: 01/15/2023 13:12 INDICATION: Status post right thoracentesis TECHNIQUE: frontal and lateral views of the chest were obtained. COMPARISON: Chest radiograph dated 12/20/2019 FINDINGS: Cardiomegaly with pulmonary vascular congestion. Mild opacities at the bilateral lower lung zones as well as a small left pleural effusion with blunting at the left posterior sulcus and costophrenic ang le. No pneumothorax or definitive residual right pleural effusion. Dense mitral annular calcification s. Dual lead pacemaker seen with leads projecting over the expected locations of the right atrium and right ventricle. Bilateral rotator cuff arthropathy. Severe thoracic spondylosis. Anterior plate-scr ew fixation for lower cervical anterior spinal fusion. IMPRESSION: 1. No pneumothorax or evident residual right pleural effusion post right thoracentesis. 2. Small left pleural effusion. 3. Mild opacities at the bilateral lung bases with differential including atelectasis, mild pulmonary edema or pneumonia. 4. Cardiomegaly. Reviewed, dictated and finalized at location A. IMPRESSION: 1. No pneumothorax or evident residual right pleural effusion post right thorac entesis. 2. Small left pleural effusion. 3. Mild opacities at the bilateral lung bases with differential including atele ctasis, mild pulmonary edema or pneumonia. 4. Cardiomegaly.
--- NOTE | ~2023-01-08 | XR_ITS ---
EXAMINATION: XR hip RT min 2V DATE: 01/17/2023 13:29 INDICATION: Right hip pain. TECHNIQUE: 3 views of right hip were obtained. COMPARISON: CT abdomen and pelvis 01/20/2022 FINDINGS: Bone alignment is normal. No fracture. There is moderate right hip osteoarthritis. There is severe osteoarthritis of right sacroiliac joint and mild osteoarthritis of left sacroiliac joint. Crews rgical clips overlie the abdomen. IMPRESSION: 1. Moderate right hip osteoarthritis. Reviewed, dictated and finalized at location A.
--- NOTE | ~2023-01-08 | XR_ITS ---
Portable chest x-ray Comparison: 01/10/2023 Clinical History: Right pleural effusion Findings: There is central congestive change and mild pulmonary edema pattern. No definite pleural e ffusion or pneumothorax. Cardiomediastinal silhouette is stable, with pacemaker device. Bones and so ft tissues are unremarkable. Impression: Central congestive change and mild pulmonary edema. No definite pleural effusion. Stable cardiomegaly with pacemaker device. Reviewed, dictated and finalized at location . Impression: Central congestive change and mild pulmonary edema. No definite pleural effusion. Stable cardiomegaly with pacemaker device.
--- NOTE | ~2023-01-08 | US_ITS ---
EXAMINATION: US thoracentesis DATE: 01/15/2023 13:23 INDICATION: Right pleural effusion TECHNIQUE: The procedure and its risks and benefits were discussed with the patient. Potential risks discussed included bleeding, infection, and pneumothorax. The patient understood the risks and agreed to proceed. The skin was prepped and draped in sterile fashion. 1% lidocaine was used for local anes thesia. Under ultrasound guidance, a 5 Fr catheter with trochar was advanced into the right pleural e ffusion. Fluid was aspirated. The catheter was removed, and a dressing was applied. There were no imm ediate complications. FINDINGS: Ultrasound images demonstrate a small right pleural effusion and the catheter within the fluid. IMPRESSION: 1. Successful ultrasound-guided thoracentesis yielding 800 mL of clear yellow fluid. Reviewed, dictated and finalized at location A.
--- NOTE | ~2023-01-08 | XR_ITS ---
EXAMINATION: XR chest 1V portable INDICATION: Worsening hypoxia TECHNIQUE: Portable AP chest at 2311 hours COMPARISON: 01/08/2023 FINDINGS: Cardiomegaly is noted. There is a mild diffuse interstitial pattern without significant is[place] nge. There is a small, stable right pleural effusion. Bibasilar airspace opacities are stable. There are minimal new opacities in the right midlung zone. A dual-lead cardiac pacemaker of the left chest wall ends with leads in expected locations. There is no pneumothorax. IMPRESSION: 1. Cardiomegaly with mild pulmonary edema, mildly worsened in the right midlung zone. 2. Small right pleural effusion with associated right basilar airspace opacity, atelectasis versus pn eumonia. Reviewed, dictated and finalized at location A. IMPRESSION: 1. Cardiomegaly with mild pulmonary edema, mildly worsened in the right midlung zone. 2. Small right pleural effusion with associated right basilar airspace opacity, atelectasis versus pneumonia.
--- NOTE | ~2023-01-08 | CT_ITS ---
Clinical Indication: Pulmonary embolus CT Scan of the Chest with Contrast: Technique: Contiguous sections were acquired throughout the chest after intravenous administration of 100 cc of Omnipaque 350. Dose reduction technique was used on this scan by utilizing automated expos ure control and iterative reconstruction technique. The dose-length product (DLP) was 1100.52 mGy-cm. Findings: There is no evidence of any significant mediastinal, hilar or axillary lymphadenopathy. There is no f illing defect in the pulmonary arterial tree to suggest pulmonary embolus. There is no evidence of ao rtic aneurysm. Atherosclerotic calcifications of the aorta are present. Cardiomegaly noted. No perica rdial effusion. Moderate to large right pleural effusion is present with complete right lower lobe atelectasis. Small left pleural effusion is present. Images through the upper abdomen reveal reflux of contrast into the IVC and hepatic veins. Impression: No pulmonary embolus identified. Moderate to large right pleural effusion with complete right lower lobe atelectasis. Small left pleural effusion. Cardiomegaly. Reflux of contrast into the IVC and hepatic veins could indicate underlying right heart dysfunction. Reviewed, dictated and finalized at [facility]. Impression: No pulmonary embolus identified. Moderate to large right pleural effusion with complete right lower lobe atelect asis. Small left pleural effusion. Cardiomegaly. Reflux of contrast into the IVC and hepatic veins could indicate underlying right heart dysfunction.
--- NOTE | ~2023-01-08 | XR_ITS ---
XR chest 1V portable DATE: 01/19/2023 05:20 INDICATION: Shortness of breath. History of congestive heart failure. TECHNIQUE: Portable AP chest on 01/19/2023 at 0512 hours COMPARISON: 01/17/2023 portable AP chest at 0526 hours FINDINGS: There is cardiomegaly and pulmonary vascular redistribution. There are perihilar and lower lung infiltrates, with mild improvement since 01/27/2023. There is diminished prominence of the minor fissure suggesting improvement of subpleural edema. Aortic arch calcification. Left-sided dual-lead pacemaker device with leads overlying right atrium and right ventricle. Status post anterior cervical spine fusion at C6-7. Prominent bilateral glenohumeral osteoarthritis and rotator cuff atrophy. Osteopenia. IMPRESSION: Cardiomegaly, congestive changes, mildly improved since 01/17/2023 Reviewed, dictated and finalized at location A.
--- NOTE | ~2023-01-08 | XR_ITS ---
XR chest 1V portable DATE: 01/08/2023 13:16 INDICATION: Dyspnea. Low oxygen saturation. COPD TECHNIQUE: Portable upright AP chest on 01/08/2023 at 1310 hours COMPARISON: 05/22/2021 portable AP chest FINDINGS: There is cardiomegaly. There is pulmonary vascular congestion and redistribution, in addit ion to prominence of the minor fissure. There is mild blunting of the costophrenic angles consistent with small pleural effusions. There is patchy bilateral pulmonary infiltrate involving central and lower lung zones primarily, sugg esting pulmonary edema. There is left dual lead pacemaker device. There is diffuse idiopathic skeletal hyperostosis of the thoracic spine. There is osteopenia. IMPRESSION: Congestive heart failure, pulmonary edema Reviewed, dictated and finalized at location B.
--- NOTE | 2023-01-08 12:50 | ECG_ITS ---
Measurements Intervals [place] Rate: 74 P: HI: 0 QRS: 129 QRSD: 111 T: -22 QT: 383 QTc: 426 Interpretive Statements ATRIAL FIBRILLATION INCOMPLETE RIGHT BUNDLE BRANCH BLOCK [90+ ms QRS DURATION, TERMINAL R IN V1/V2, 40+ ms S IN I/aVL/V4/V5/V6] POSSIBLE RIGHT VENTRICULAR HYPERTROPHY [SOME/ALL OF: PROMINENT R IN V1, LATE TRANSITION, RAD, MELANY, SSS] ANTEROSEPTAL MYOCARDIAL INFARCTION , OF INDETERMINATE AGE [40+ ms Q WAVE IN V1-V4] ABNORMAL ECG COMPARED TO ECG 01/20/2022 16:43:08 INCOMPLETE RIGHT BUNDLE-BRANCH BLOCK NOW PRESENT MYOCARDIAL INFARCT FINDING NOW PRESENT Electronically Signed On 01-08-2023 14:01:58 CDT by Jignesh Gibson M.D.
--- NOTE | 2023-01-08 13:57 | PC.NURSE ---
Anibal RN with [facility] in room now placing IV line and getting labs. MD Teo aware
[2023-01-08 14:09] LABS: Alveolar/Arterial O2 Gradient 173.5 mmHg; Base Excess ABG 5.2 mEq/l (+/-2.0); Fractional Inspired Oxygen 44 %; HCO3 ABG 33.3 mEq/l (22.0-26.0); Methemoglobin ABG 0.5 %THb (0-1.5); Oxygen Content ABG 22.1 %vol (16.0-22.0); Oxygen Saturation ABG 92.9 % (95.0-100.0); Oxyhemoglobin 89.9 % THb (90.0-100.0); PO2 FiO2 Ratio Arterial Blood 1.59 %; Reduced Hemoglobin 7.6 %THb (0-5.0); Total Hemoglobin 17.5 g/dL (12.0-18.0); pH ABG 7.351 (7.350-7.450)
[2023-01-08 14:10] LABS: Device NASAL CANNULA; Modified Allen's Test Pass; PCO2 ABG 61.6 mmHg (35.0-45.0); Site Drawn LEFT RADIAL
[2023-01-08 14:19] LABS: Basophils Absolute Auto 0.1 K/mm3 (0.0-0.1); Basophils Percent Auto 0.8 % (0.2-1.2); Eosinophils Absolute Auto 0.2 K/mm3 (0-0.3); Eosinophils Percent Auto 1.8 % (0-4.4); Hemoglobin 16.7 g/dL (12.0-15.0); Immature Granulocyte Absolute 0.05 K/mm3 (0.00-0.031); Immature Granulocyte Percent A 0.6 % (0-0.5); Lymphocytes Absolute Auto 1.17 K/mm3 (0.9-3.2); Lymphocytes Percent Auto 12.9 % (18.3-44.2); Mean Corpuscular HGB Conc 29.8 g/dl (32-36); Mean Corpuscular Hemoglobin 30.3 pg (26-34); Mean Corpuscular Volume 101.4 fl (80-100); Mean Platelet Volume 10.3 fl (7.4-10.4); Monocytes Absolute Auto 0.7 K/mm3 (0.1-0.6); Monocytes Percent Auto 7.4 % (2.6-8.5); Neutrophils Absolute Auto 6.9 K/mm3 (1.3-6.7); Neutrophils Percent Auto 76.5 % (45.5-73.1); Nucleated Red Blood Cells Perc 0.4 % (0.0-0.2); Platelet Count Result 191 k/mm3 (150-375); Red Blood Count 5.52 M/mm3 (4.2-5.4); Red Cell Distribution Width 17.9 % (11.5-14.5)
[2023-01-08 14:32] LABS: INR 1.5; Prothrombin Time 18.8 Seconds (11.1-14.7)
[2023-01-08 14:33] LABS: Partial Thromboplastin Time 37.1 SECONDS (22.3-36.8)
[2023-01-08] MEDS: FUROSEMIDE INJ 40 MG/4 ML VIAL IV PUSH ×2 (14:36→20:32)
[2023-01-08 14:56] LABS: Alanine Aminotransferase 20 U/L (6-35); Albumin Level 3.5 g/dL (3.5-5.1); Alkaline Phosphatase 102 U/L (38-126); Anion Gap 4 mmol/L (8-16); Aspartate Amino Transferase 32 U/L (14-36); Bilirubin,Total 1.2 mg/dL (0.2-1.3); Blood Urea Nitrogen 27 mg/dL (7-17); Calcium 8.2 mg/dL (8.4-10.2); Carbon Dioxide 39 mmol/L (22-30); Chloride 94 mmol/L (98-107); Estimated CRCL calculation 56 ml/min; Estimated Glomerular Filt Rate 48; Glucose 116 mg/dL (65-110); Potassium 3.9 mmol/L (3.4-5.0); Sodium 137 mmol/L (137-145)
[2023-01-08 15:08] LABS: NT Pro B Type Natriuretic Pept 23400 pg/mL (19.9-100); Troponin I 0.046 ng/mL (0.000-0.034)
[2023-01-08 15:18] LABS: Platelet Estimate Adequate (Adequate)
[2023-01-08 15:19] LABS: Anisocytosis 2+ (NORMAL); Hypochromasia 1+ (NORMAL); Schistocytes None Seen (NORMAL)
--- NOTE | 2023-01-08 15:34 | PM.IMHP ---
H&P: HPI History of Present Illness Date/Time: 01/08/23 15:34 Chief Complaint: Dyspnea Narrative: Patient is 77 y/o female with PMHx pulmonary HTN and COPD on 2L HOT, breast cancer on letrozole, HTN, anemia, PAF on AC, PUD, morbidly obese, CHF wheelchair bound who presents to the ED with dyspnea. She states her dyspnea has been getting worse over the past few days but the hypoxia started this AM. She had to increase her home O2 from 2L to 6L to maintain her sats. She takes lasix 40mg PO daily, does not know her dry weight. She is on eliquis at home for afib, no history of PE. She is on inhalers Trelegy. No sick contacts, no recent travels, no recent changes to meds. She lives with her daughter. 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 She is wheelchair bound, unable to ambulate due to her weight. She is full code. In the ED: She on 6L O2 by NE. CXR shows pulm edema. Cr 1.10, trop 0.046, BNP 23.4k. She recieved 40mg IV lasix for pulmonary edema. She will be admitted to IMU for CHF exacerbation and elevated troponin. Review of Systems Review of Systems: Constitutional: No Fever, No Chills, No Night Sweats, No Fatigue, No Malaise ENT/Mouth: No Hearing Changes, No Ear Pain, No Nasal Congestion, No Sinus Pain, No Hoarseness, No sore throat, No Rhinorrhea, No Swallowing Difficulty Eyes: No Eye Pain, No Redness, No Vision Changes Cardiovascular: No Chest Pain, No Palpitations, No Dyspnea on Exertion, No Orthopnea, No Claudication Respiratory: Endorses dyspnea, non-productive cough Gastrointestinal: No Nausea, No Vomiting, No Diarrhea, No Constipation, No Abdominal Pain, No Heartburn, No Hematochezia, No Melena Genitourinary: No Dysuria, No Urinary Frequency, No Hematuria, No Urinary Incontinence, No Urgency Musculoskeletal: No Arthralgias, No Myalgias, No Joint Swelling, No Joint Stiffness, No Back Pain Skin: No Skin Lesions, No Pruritis, No Hair Changes Neuro: No Weakness, No Numbness, No Paresthesias, No Loss of Consciousness, No Syncope, No Dizziness, No Headache Psych: No Anxiety/Panic, No Depression, No Insomnia Heme: No Bruising, No Bleeding Lymph: No Adenopathy Endocrine: No Polyuria, No Polydipsia, No Temperature Intolerance [facility] Past Medical History Medical History Macdonald esophagus Cancer of right breast (~2017) Status post lumpectomy, chemotherapy, and radiation. Chronic anticoagulation Coffee ground emesis Duodenal ulcer Hypertension Iron deficiency anemia Mitral stenosis Morbid obesity Paroxysmal atrial fibrillation Partial gastric outlet obstruction Pulmonary HTN severe - PA 62 mmHg Surgical History Surgical History History of fusion of cervical spine C5-C6 fusion after fracture. History of hernia repair History of lumpectomy of right breast For breast cancer. History of permanent cardiac pacemaker placement History of total hysterectomy with bilateral salpingo-oophorectomy (BSO) Status post debridement Left heel wound debridement. Family History Family History Father Congestive heart failure Heart disease Sibling Diabetes mellitus Mother Breast cancer Sibling Heart disease Social History Social History Social History: The patient is originally from [place], but moved to [place] in spring 2019 to live with her daughter however she is now living in her own apartment. She is nonambulatory and transfers with a Carlos. Her daughter and caretakers come in several hours a day. 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 She smoked upwards of 2 packs of cigarettes a day for 40 years and quit in 2009. She denies alcohol and illicit substance use. Her only child, daughter Zoie Peguero, is her surrogate decision maker and she wishes to be a full code. Living
--- NOTE | 2023-01-08 15:37 | ED.GENADULT ---
HPI - General Adult General Chief complaint: Shortness of Breath/Dyspnea Stated complaint: sob Time Seen by Provider: 01/08/23 13:11 History of Present Illness HPI narrative: Patient is a 77-year-old female with history of heart failure who presents ER with shortness of breath. Worsening over last couple days. Found to be hypoxic at home today. Typically wears 2 L of oxygen but is now up to 6 L. Denies fevers or chills or sweats. Reports compliance with home medication including diuretics. Has chronic lower extremity edema and does not believe it has increased. No chest pain or chest pressure Related Data Home Medications Medication Instructions Recorded Confirmed calcitriol 0.25 mcg capsule 0.25 mcg PO DAILY 12/20/19 01/08/23 diltiazem HCl 180 mg 180 mg PO HS 12/20/19 01/08/23 capsule,extended release 24 hr (Cardizem CD) fluticasone propionate 50 2 spray intranasal PRN PRN 12/20/19 01/08/23 mcg/actuation nasal Congestion spray,suspension furosemide 40 mg tablet 40 mg PO DAILY 12/20/19 01/08/23 hydrocodone 5 mg-acetaminophen 325 1 tablet PO Q6H PRN Pain 12/20/19 01/08/23 mg tablet hydroxyzine pamoate 50 mg capsule 50 mg PO Q6-8H PRN Itching 12/20/19 01/08/23 letrozole 2.5 mg tablet 2.5 mg PO DAILY 12/20/19 01/08/23 allopurinol 100 mg tablet 200 mg PO DAILY 01/20/22 01/08/23 atorvastatin 10 mg tablet 10 mg PO HS 01/20/22 01/08/23 ergocalciferol (vitamin D2) 1,250 1,250 mcg PO WEEKLY 01/20/22 01/08/23 mcg (50,000 unit) capsule (Vitamin D2) ferrous sulfate 325 mg PO BID 01/20/22 01/08/23 fluticasone fur. 100 mcg-umeclid 1 inh inhalation DAILY 01/20/22 01/08/23 62.5 mcg-vilant 25 mcg inhalat.powder (Trelegy Ellipta) furosemide 40 mg tablet 80 mg PO 3XW 01/08/23 01/08/23 gabapentin 600 mg tablet 1,200 mg PO HS 01/08/23 01/08/23 gabapentin 600 mg tablet 600 mg PO DAILY 01/08/23 01/08/23 latanoprost 0.005 % eye drops 1 drp EACH EYE HS 01/08/23 01/08/23 potassium 99 mg tablet 99 mg PO DAILY 01/08/23 01/08/23 Allergies Allergy/AdvReac Type Severity Reaction Status Date / Time rivaroxaban AdvReac Intermediate Other Verified 01/08/23 17:51 Review of Systems Review of Systems: All systems reviewed & are unremarkable except as noted in HPI and below Constitutional: Constitutional: Denies chills, Reports fatigue and Denies fever(s) ENT: Denies nasal congestion and Denies sore throat Cardiovascular: Cardiovascular: Denies chest pain, Denies rapid heart rate and Denies radiating jaw, neck or arm pain Respiratory: Respiratory: Reports chest congestion, Denies cough, Reports dyspnea and Denies wheezing Gastrointestinal: Gastrointestinal: Denies abdominal pain, Denies diarrhea, Denies nausea and Denies vomiting Genitourinary: Genitourinary: Reports no additional female genitourinary complaints Musculoskeletal: Musculoskeletal: Reports no additional musculoskeletal complaints [facility] Past Medical History Medical History Macdonald esophagus Cancer of right breast (~2017) Status post lumpectomy, chemotherapy, and radiation. Chronic anticoagulation Coffee ground emesis Duodenal ulcer Hypertension Iron deficiency anemia Mitral stenosis Morbid obesity Paroxysmal atrial fibrillation Partial gastric outlet obstruction Pulmonary HTN severe - PA 62 mmHg Surgical History Surgical History History of fusion of cervical spine C5-C6 fusion after fracture. History of hernia repair History of lumpectomy of right breast For breast cancer. History of permanent cardiac pacemaker placement History of total hysterectomy with bilateral salpingo-oophorectomy (BSO) Status post debridement Left heel wound debridement. Family History Family History Father Congestive heart failure Heart disease Sibling Diabetes mellitus Mother Breast
--- NOTE | 2023-01-08 17:36 | ADMGEN ---
This patient, Ashley Croft, was admitted to IMU Room 201-01. Patient/family oriented to hospital policies and general routines including ID bracelet, bed and alarms, visiting hours, pain management, procedures, bathroom and other care routines, personal items, smoking policy, room service/diet, and visiting hours. Information on how to activate the Rapid Response Team has been discussed. Patient/Family are encouraged to report perceived risks to care and to ask questions if they do not understand what they are told or what they should do.
[2023-01-08] MEDS: GABAPENTIN 400 MG CAPSULE 1200 MG PO (20:32)
[2023-01-08] MEDS: dilTIAZem HCL CD 180 MG CAP.24HR PO (20:33)
[2023-01-08] MEDS: ATORVASTATIN 10 MG TABLET PO (20:33)
[2023-01-08] MEDS: APIXABAN 5 MG TABLET PO (20:33)
[2023-01-08] MEDS: LATANOPROST 0.005% OP SOLN 2.5 ML BTL 1 DROP EACH EYE (20:34)
[2023-01-08 20:38] LABS: Troponin I 0.054 ng/mL (0.000-0.034)
[2023-01-09] VITALS (17 sets, daily range): BP systolic 61–147; BP diastolic 26–97; PULSE 51–78; RESP 18–22; TEMP 35.6–36.6; O2SAT 90–99
--- NOTE | 2023-01-09 | ECHO_ITS ---
Patient Info Name: Ashley Croft Age: 77 years : 1945 Gender: Female Ht: 63 in Wt: 328 lbs BSA: 2.67 m2 HR: 60 bpm BP: 109 / 55 mmHg Technical Quality: Fair Exam Date: 01/09/2023 2:09 PM Exam Location: [facility] Pulmonary Exam Room: 201 Patient Status: Inpatient Admit Date: 01/08/2023 Staff Ordering Physician: Jose Goldstein DO Belt Fixer: Leta Sheridan RDCS Attending Provider: Jose Goldstein DO Referring Physician: Angelita WHEATLEY; Exam Type: CA echo dop color flow w con Study Info Indications - fluid overload Complete two-dimensional, color flow and Doppler transthoracic echocardiogram is performed with contrast to opacify the left ventricle and to improve the deliniation of the left ventricle endocardial borders. Contrast/Agitated Saline Contrast/Ag. Saline: Definity Amount: 2.00 ml Administered By: Leta Sheridan [facility] Existing IV Access: Yes IV Access Condition: patent with no signs of infiltration Summary 1. Left ventricular chamber dimension is normal. 2. Left ventricular systolic function is hyperdynamic, estimated at >70%. 3. There is moderate concentric increased left ventricular wall thickness. 4. The left ventricular diastolic function is abnormal. 5. E/e' 23 is elevated. 6. Right ventricular systolic function is moderately reduced. 7. Right ventricular chamber dimension is moderately enlarged. 8. Linear artifact in right ventricle suggestive of catheter(s), pacemaker lead(s), or ICD lead(s). 9. Left atrial chamber dimension is severely enlarged. 10. Right atrial chamber dimension is severely enlarged. 11. Linear artifact in the right atrium suggestive of catheter(s), pacemaker lead(s), or ICD lead(s). 12. There is mild aortic valve sclerosis. 13. The mitral valve has severely calcified posterior annulus. 14. There is moderate tricuspid valve regurgitation. 15. Severe pulmonary hypertension, estimated pulmonary arterial systolic pressure is 96 mmHg. 16. Dilated inferior vena cava with >50% collapse upon inspiration consistent with elevated right atrial pressure, 10 mmHg. 17. There is trivial pericardial effusion. Left Ventricle E/e' 23 is elevated. Left ventricular chamber dimension is normal. Left ventricular systolic function is hyperdynamic, estimated at >70%. There is moderate concentric increased left ventricular wall thickness. The left ventricular diastolic function is abnormal. Right Ventricle Right ventricular systolic function is moderately reduced. Linear artifact in right ventricle suggestive of catheter(s), pacemaker lead(s), or ICD lead(s). Right ventricular chamber dimension is moderately enlarged. Left Atria Left atrial chamber dimension is severely enlarged. Right Atria Linear artifact in the right atrium suggestive of catheter(s), pacemaker lead(s), or ICD lead(s). Right atrial chamber dimension is severely enlarged. Aortic Valve The aortic valve is trileaflet. There is mild aortic valve sclerosis. There is no aortic valve stenosis. There is no aortic valve regurgitation. Pulmonic Valve There is no pulmonic regurgitation. Mitral Valve The mitral valve has severely calcified posterior annulus. There is no mitral valve stenosis. There is no mitral valve regurgitation. Tricuspid Valve There is moderate tricuspid valve regurgitation. Severe pulmonary hypertension, estimated pulmonary arterial systolic pressure is 96 mmHg. Pericardium/Pleural There is trivial pericardial effusion. Inferior Vena Cava Dilated inferior vena
[2023-01-09 04:11] LABS: Hemoglobin 16.3 g/dL (12.0-15.0); Mean Corpuscular HGB Conc 30.2 g/dl (32-36); Mean Corpuscular Hemoglobin 30.2 pg (26-34); Mean Corpuscular Volume 100.2 fl (80-100); Mean Platelet Volume 10.4 fl (7.4-10.4); Platelet Count Result 176 k/mm3 (150-375); Red Blood Count 5.39 M/mm3 (4.2-5.4); Red Cell Distribution Width 17.5 % (11.5-14.5); White Blood Count 8.3 K/mm3 (4.5-10.0)
[2023-01-09 04:32] LABS: Anion Gap 4 mmol/L (8-16); Blood Urea Nitrogen 28 mg/dL (7-17); Calcium 8.2 mg/dL (8.4-10.2); Carbon Dioxide 38 mmol/L (22-30); Chloride 95 mmol/L (98-107); Estimated CRCL calculation 42 ml/min; Estimated Glomerular Filt Rate 37; Glucose 105 mg/dL (65-110); Magnesium 2.1 mg/dL (1.6-2.3); Potassium 3.9 mmol/L (3.4-5.0); Sodium 137 mmol/L (137-145)
[2023-01-09] MEDS: PANTOPRAZOLE 40 MG TABLET PO (09:37)
[2023-01-09] MEDS: allopurinoL 100 MG TABLET 200 MG PO (09:37)
[2023-01-09] MEDS: GABAPENTIN 300 MG CAPSULE 600 MG PO (09:37)
[2023-01-09] MEDS: FLUTICASONE PROPIONATE 0.05% NA SPR 16 GM BTL (*BKC) 2 SPRAY NASAL (09:38)
[2023-01-09] MEDS: LETROZOLE (*CHEMO) 2.5 MG TABLET PO (09:38)
[2023-01-09] MEDS: calcitrioL 0.25 MCG CAPSULE PO (09:38)
[2023-01-09] MEDS: APIXABAN 5 MG TABLET PO ×2 (09:38→20:40)
[2023-01-09] MEDS: FERROUS SULFATE 325 MG TABLET DR PO ×2 (09:38→17:35)
[2023-01-09] MEDS: FUROSEMIDE INJ 40 MG/4 ML VIAL IV PUSH ×2 (09:38→20:41)
--- NOTE | 2023-01-09 09:46 | PM.IMPN ---
Progress Note: A&P Assessment and Plan (1) CHF exacerbation: Code(s): I50.9 - Heart failure, unspecified Status: Acute (2) Elevated troponin: Code(s): R77.8 - Other specified abnormalities of plasma proteins Status: Acute Plan # pulmonary edema, acute CHF preserved ejection fraction exacerbation # acute on chronic hypoxic and hypercarbic respiratory failure -patient clinically fluid overloaded, chest x-ray consistent with edema, elevated BNP 23k -patient given IV Lasix in ED, will continue diuresis 40 mg IV Lasix b.i.d. -placing Davis catheter for strict I&O -pending limited echo h/o preserved EF -continue fluid restriction and cardiac diet -wean O2 as tolerated to keep O2 sat>90%, 2L HOT, now on 6L -educated patient on monitoring weight for dry weight to prevent worsening edema -pain control: P.r.n. morphine antiemetic -PT/OT consulted: Patient wheelchair-bound at baseline, therapies to help with patient transferring -holding off on antibiotics, normal WBC, non-productive cough -holding off on steroids, no wheezing on exam, likely fluid overload as opposed to COPD exacerbation consult drawing instructor # elevated troponin -likely secondary to CHF exacerbation -no active chest pain, ACS ruled out, will trend troponins, EKG showed AFib Consult drawing instructor # elevated creatinine -creatinine 1.1 possibility of cardiorenal syndrome # chronic conditions -COPD on 2L HOT: Quit smoking in 2009, on trelegy, no wheezing, more likely fluid overload leading to dyspnea. pH stable on ABG, likely chronic hypercarbia. PRN albuterol -Barretts esophagus, GERD: protonix -gout: allopurinol -chronic atrial fibrillation: AC with eliquis, rate control diltiazem -HLD: statin -TR: ferrous sulfate -neuropathy: gabapentin -morbid obesity, wheelchair bound: poor exercise effort -h/o breast cancer: on letrozole Diet: Cardiac with fluid restriction 1500 cc DVT prophylaxis: Eliquis Code status: Full code Disposition: Likely home in 2-3 days Subjective Date/time seen: 01/09/23 09:46 Interval history: Patient feels better today, denies chest pain, but still has some shortness of breath. I reviewed the labs, patient has no new issue event over the night Exam Narrative: - GENERAL: Pleasant morbidly obese mild respiratory distress. - EYES: EOMI. Anicteric. - HENT: Moist mucous membranes. - LUNGS: Course lungs worse on expiration, tachypneic - CARDIOVASCULAR: Regular rate and rhythm. - ABDOMEN: Soft, non-tender and non-distended. - EXTREMITIES: 2+pitting edema throughout - NEUROLOGIC: No focal neurological deficits. CN II-XII grossly intact. - PSYCHIATRIC: Awake, Alert and oriented x 3. Appropriate mood and affect. - SKIN: No rashes or lesions. Warm. Objective Data Vital Signs Vital Signs: Vital Signs - 24 hr 01/08/23 12:46 01/08/23 13:19 01/08/23 13:20 Temperature 98.6 F Pulse Rate 79 71 Respiratory Rate 21 H 18 Blood Pressure 184/91 H Pulse Oximetry 88 L 94 93 Oxygen Delivery Nasal Cannula Nasal Cannula Oxygen Flow Rate 5 6 01/08/23 13:20 01/08/23 13:30 01/08/23 16:57 Temperature Pulse Rate 69 64 Respiratory Rate 17 18 Blood Pressure 160/90 H Pulse Oximetry 93 95 95 Oxygen Delivery Nasal Cannula Oxygen Flow Rate 6 01/08/23 14:00 01/08/23 15:00 01/08/23 17:17 Temperature Pulse Rate 68 63 Respiratory Rate 17 16 Blood Pressure 132/47 L 172/96 H Pulse Oximetry 95 97 97 Oxygen Delivery Nasal Cannula Oxygen Flow Rate 4 01/08/23 17:17 01/08/23 18:00 01/08/23 20:00 Temperature 97.7 F 97.6 F Pulse Rate 61 68 63 Respiratory Rate 18 18 Blood Pressure 102/56 L 101/54 L Pulse Oximetry 95 92 Oxygen Delivery Oxygen Flow Rate 01/08/23 20:00 01/08/23 20:00 01/08/23 22:00 Temperature Pulse Rate 61 61 64 Respiratory Rate 18 Blood Pressure Pulse Oximetry 92 Oxygen Delivery Nasal Cannula Oxygen Flow Rate 4 01/09/23 00:00 08
--- NOTE | 2023-01-09 13:19 | PM.CNCAR ---
Assessment and Plan Assessment and plan (1) CHF exacerbation: Code(s): I50.9 - Heart failure, unspecified Status: Acute Assessment and Plan: Presents with shortness of breath and has evidence of CHF on chest Xray. She has received IV furosemide and is improving. Agree with furosemide 40mg IV b.i.d. Strict I&O 1500cc fluid restriction daily weights Echo pending (2) Paroxysmal atrial fibrillation: Code(s): I48.0 - Paroxysmal atrial fibrillation Status: Acute Assessment and Plan: Rate controlled atrial fibrillation. Continue diltiazem for rate control and eliquis for a/c. History of Present Illness History of Present Illness Consult date/time: 01/09/23 13:19 Requesting physician: Arvin Yousif MD Consult reason: congestive heart failure Reason For Visit: chf exacerbation,elavted troponin Narrative: Ashley Croft is a 77 year old female with a history of atrial fibrillation and CHF. She follows with a hard candy batch mixer at [facility]. She also has a permanent pacemaker in place. She presents to the hospital with a chief complaint of shortness of breath. She has been experiencing symptoms of cough and chest congestion for several days. She had some shortness of breath accompanied with these symptoms but yesterday breathing became more difficult and she was found to be hypoxic at home. She has also been experiencing lower extremity swelling in recent weeks. She denies any chest pain, palpitations, orthopnea. She has received a few doses of IV lasix and is feeling better though still short of breath. Review of Systems Review of Systems: All systems reviewed & are unremarkable except as noted in HPI and below PMFSH Past Medical History Medical History Macdonald esophagus Cancer of right breast (~2017) Status post lumpectomy, chemotherapy, and radiation. Chronic anticoagulation Coffee ground emesis Duodenal ulcer Hypertension Iron deficiency anemia Mitral stenosis Morbid obesity Paroxysmal atrial fibrillation Partial gastric outlet obstruction Pulmonary HTN severe - PA 62 mmHg Surgical History Surgical History History of fusion of cervical spine C5-C6 fusion after fracture. History of hernia repair History of lumpectomy of right breast For breast cancer. History of permanent cardiac pacemaker placement History of total hysterectomy with bilateral salpingo-oophorectomy (BSO) Status post debridement Left heel wound debridement. Family History Family History Father Congestive heart failure Heart disease Sibling Diabetes mellitus Mother Breast cancer Sibling Heart disease Social History Social History Social History: The patient is originally from [place], but moved to [place] in spring 2019 to live with her daughter however she is now living in her own apartment. She is nonambulatory and transfers with a Carlos. Her daughter and caretakers come in several hours a day. 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 She smoked upwards of 2 packs of cigarettes a day for 40 years and quit in 2009. She denies alcohol and illicit substance use. Her only child, daughter Zoie Peguero, is her surrogate decision maker and she wishes to be a full code. Smoking packs per day: 2 Smoking cigarettes per day: 40.0 Smoking status: Former smoker Tobacco type: cigarettes Additional smoking assessment comments: quit 1989 Lack of Transportation: No Lack of Food: Never True Current Housing: I Have Housing Concerned About Future Housing: No Difficulty Paying Gas/Electric Bills: No Difficulty Paying for Meds: No Currently Unemployed: No Education: High School Diploma/GED Difficulty w/ Childcare or Family Care: No
[2023-01-09] MEDS: PERFLUTREN LIPID MICROSPHERES 1.5 ML VIAL DILUTED TO 10 ML TOTAL VOLUME IV PUSH (14:30)
--- NOTE | 2023-01-09 15:13 | IVDEFINITY ---
Prior to administration of IV Definity the patient was educated on the risks and benefits of the imaging enhancing agent including potential adverse side effects. The patient verbalized understanding. Allergies were verified. No exclusion criteria were identified and at least one of the following inclusion criteria were met: 1) physician request, 2) patient technically difficult to image (per the [place] [employer]ocardi[employer] guidelines of two or more segments not discernable within the apical view), or 3) questionable left ventricular function. ?
[2023-01-09] MEDS: dilTIAZem HCL CD 180 MG CAP.24HR PO (20:40)
[2023-01-09] MEDS: GABAPENTIN 400 MG CAPSULE 1200 MG PO (20:40)
[2023-01-09] MEDS: ATORVASTATIN 10 MG TABLET PO (20:41)
[2023-01-09] MEDS: LATANOPROST 0.005% OP SOLN 2.5 ML BTL 1 DROP EACH EYE (20:41)
[2023-01-10] VITALS (20 sets, daily range): BP systolic 138–183; BP diastolic 77–91; PULSE 59–89; RESP 14–24; TEMP 35.8–37.1; O2SAT 78–98
[2023-01-10] MEDS: HYDROcodone/acetaminophen (*CRX) 5-325 MG TABLET 1 TAB PO ×2 (00:46→20:43)
[2023-01-10] MEDS: FLUTICASONE/UMECLIDIN/VILANTER 100-62.5-25 MCG ELLIPTA 1 PUFF INHALATION (08:22)
--- NOTE | 2023-01-10 08:25 | PM.PNCARD ---
Progress Note: A&P Assessment and Plan (1) CHF exacerbation: Code(s): I50.9 - Heart failure, unspecified Status: Acute Assessment and Plan: Presents with shortness of breath and has evidence of CHF on chest Xray. She has received IV furosemide and is improving. Continue diuresis with furosemide 40mg IV b.i.d. Strict I&O 1500cc fluid restriction daily weights daily BMP while diuresing Wean O2 as tolerated Echo shows hyperdynamic LVSF, diastolic dysfunction, severe PORFIRIO, moderate TR, and severe pHTN with a PASP 96mmHg which is certainly contributing to her decompensated state Will add SGLT2i for management of her HFrEF. Can also add spironolactone if Jardiance is tolerated. (2) Paroxysmal atrial fibrillation: Code(s): I48.0 - Paroxysmal atrial fibrillation Status: Acute Assessment and Plan: Rate controlled atrial fibrillation. Continue diltiazem for rate control and eliquis for a/c. Subjective Date/time seen: 01/10/23 08:25 Interval history: Cardiology follow up for CHF, Afib Feeling better this morning. Less short of breath. Had some tingling/pain in her legs last night but otherwise is without complaint. Review of Systems Review of Systems: All systems reviewed & are unremarkable except as noted in HPI and below Exam Const: General: comfortable, no acute distress, alert and awake Orientation/consciousness: patient oriented x3 Other: Morbidly obese HENMT: Head: normal to inspection Eyes: General: appearance normal, both eyes and all related structures Pupils: Equal, round and reactive pupils present Neck: Neck: normal visual inspection and supple Carotids: normal carotid upstroke Other: Unable to assess JVD due to body habitus Resp: Effort & Inspection: normal respiratory effort Auscultation: not clear to auscultation bilaterally and rales Cardio: Rate: regular rate Rhythm: abnormal rhythm irregularly irregular Heart sounds: S1 normal heart sound present, S2 normal heart sound present and Murmur heart sound present systolic GI: Auscultation: normal bowel sounds Skin: General skin exam: normal color Neuro: General: patient oriented x3 Cranial nerves: Yes Equal, round and reactive pupils present Extrem: General: abnormal to inspection and edema (mild bilateral lower extremity edema ) Psych: Appearance: grossly normal Mental Status: mental status grossly normal Objective Data Vital Signs Vital Signs: Vital Signs - 24 hr 01/09/23 08:35 01/09/23 10:15 01/09/23 10:15 Temperature 35.6 C L Pulse Rate 70 Respiratory Rate 22 H Blood Pressure 71/34 L 61/26 L 143/97 H Pulse Oximetry 95 Oxygen Delivery Oxygen Flow Rate 01/09/23 11:54 01/09/23 12:00 01/09/23 10:00 Temperature 35.8 C L Pulse Rate 63 66 Respiratory Rate 22 H Blood Pressure 147/86 H Pulse Oximetry 93 93 Oxygen Delivery Nasal Cannula Oxygen Flow Rate 4 01/09/23 12:00 01/09/23 14:00 01/09/23 16:18 Temperature 35.9 C L Pulse Rate 74 70 63 Respiratory Rate 20 Blood Pressure 143/78 H Pulse Oximetry 96 Oxygen Delivery Oxygen Flow Rate 01/09/23 14:09 01/09/23 16:00 01/09/23 18:00 Temperature Pulse Rate 58 L 57 L Respiratory Rate Blood Pressure Pulse Oximetry 93 Oxygen Delivery Nasal Cannula Oxygen Flow Rate 4 01/09/23 16:00 01/09/23 20:00 01/09/23 20:00 Temperature 36.6 C Pulse Rate 67 62 Respiratory Rate 20 Blood Pressure 146/97 H Pulse Oximetry 96 90 Oxygen Delivery Nasal Cannula Oxygen Flow Rate 4 01/09/23 20:00 01/09/23 21:27 01/10/23 00:00 Temperature 36.1 C L Pulse Rate 62 65 65 Respiratory Rate 20 20 Blood Pressure Pulse Oximetry 90 90 Oxygen Delivery Nasal Cannula Oxygen Flow Rate 4 01/10/23 00:00 01/10/23 00:00 01/10/23 02:00 Temperature Pulse Rate 65 65 62 Respiratory Rate 20 Blood Pressure Pulse Oximetry 90 Oxygen Delivery
[2023-01-10] MEDS: GABAPENTIN 300 MG CAPSULE 600 MG PO (08:56)
[2023-01-10] MEDS: APIXABAN 5 MG TABLET PO ×2 (08:56→20:43)
[2023-01-10] MEDS: LETROZOLE (*CHEMO) 2.5 MG TABLET PO (08:56)
[2023-01-10] MEDS: FERROUS SULFATE 325 MG TABLET DR PO ×2 (08:56→16:32)
[2023-01-10] MEDS: FUROSEMIDE INJ 40 MG/4 ML VIAL IV PUSH ×2 (08:57→20:43)
[2023-01-10] MEDS: calcitrioL 0.25 MCG CAPSULE PO (08:57)
[2023-01-10] MEDS: allopurinoL 100 MG TABLET 200 MG PO (08:57)
[2023-01-10] MEDS: PANTOPRAZOLE 40 MG TABLET PO (08:57)
--- NOTE | 2023-01-10 09:05 | PM.IMPN ---
Progress Note: A&P Assessment and Plan (1) CHF exacerbation: Code(s): I50.9 - Heart failure, unspecified Status: Acute (2) Elevated troponin: Code(s): R77.8 - Other specified abnormalities of plasma proteins Status: Acute Plan # pulmonary edema, acute CHF preserved ejection fraction exacerbation # acute on chronic hypoxic and hypercarbic respiratory failure -patient clinically fluid overloaded, chest x-ray consistent with edema, elevated BNP 23k -patient given IV Lasix in ED, will continue diuresis 40 mg IV Lasix b.i.d. -placing Davis catheter for strict I&O -pending limited echo h/o preserved EF -continue fluid restriction and cardiac diet -wean O2 as tolerated to keep O2 sat>90%, 2L HOT, now on 6L -educated patient on monitoring weight for dry weight to prevent worsening edema -pain control: P.r.n. morphine antiemetic -PT/OT consulted: Patient wheelchair-bound at baseline, therapies to help with patient transferring -holding off on antibiotics, normal WBC, non-productive cough -holding off on steroids, no wheezing on exam, likely fluid overload as opposed to COPD exacerbation consult acidizer water well # elevated troponin -likely secondary to CHF exacerbation -no active chest pain, ACS ruled out, will trend troponins, EKG showed AFib Consult acidizer water well # elevated creatinine -creatinine 1.1 possibility of cardiorenal syndrome # chronic conditions -COPD on 2L HOT: Quit smoking in 2009, on trelegy, no wheezing, more likely fluid overload leading to dyspnea. pH stable on ABG, likely chronic hypercarbia. PRN albuterol -Barretts esophagus, GERD: protonix -gout: allopurinol -chronic atrial fibrillation: AC with eliquis, rate control diltiazem -HLD: statin -TR: ferrous sulfate -neuropathy: gabapentin -morbid obesity, wheelchair bound: poor exercise effort -h/o breast cancer: on letrozole Diet: Cardiac with fluid restriction 1500 cc DVT prophylaxis: Eliquis Code status: Full code Disposition: Likely home in 2-3 days Subjective Date/time seen: 01/10/23 09:05 Interval history: I saw and examined the patient. Patient today, patient still has intermittent palpitation, denies dizziness, near-syncope or syncope Exam Narrative: - GENERAL: Pleasant morbidly obese mild respiratory distress. - EYES: EOMI. Anicteric. - HENT: Moist mucous membranes. - LUNGS: Course lungs worse on expiration, tachypneic - CARDIOVASCULAR: Regular rate and rhythm. - ABDOMEN: Soft, non-tender and non-distended. - EXTREMITIES: 2+pitting edema throughout - NEUROLOGIC: No focal neurological deficits. CN II-XII grossly intact. - PSYCHIATRIC: Awake, Alert and oriented x 3. Appropriate mood and affect. - SKIN: No rashes or lesions. Warm. Objective Data Vital Signs Vital Signs: Vital Signs - 24 hr 01/09/23 10:15 01/09/23 10:15 01/09/23 11:54 Temperature 96.5 F L Pulse Rate 63 Respiratory Rate 22 H Blood Pressure 61/26 L 143/97 H 147/86 H Pulse Oximetry 93 Oxygen Delivery Oxygen Flow Rate 01/09/23 12:00 01/09/23 10:00 01/09/23 12:00 Temperature Pulse Rate 66 74 Respiratory Rate Blood Pressure Pulse Oximetry 93 Oxygen Delivery Nasal Cannula Oxygen Flow Rate 4 01/09/23 14:00 01/09/23 16:18 01/09/23 14:09 Temperature 96.7 F L Pulse Rate 70 63 Respiratory Rate 20 Blood Pressure 143/78 H Pulse Oximetry 96 93 Oxygen Delivery Nasal Cannula Oxygen Flow Rate 4 01/09/23 16:00 01/09/23 18:00 01/09/23 16:00 Temperature Pulse Rate 58 L 57 L Respiratory Rate Blood Pressure Pulse Oximetry 96 Oxygen Delivery Nasal Cannula Oxygen Flow Rate 4 01/09/23 20:00 01/09/23 20:00 01/09/23 20:00 Temperature 97.8 F Pulse Rate 67 62 62 Respiratory Rate 20 20 Blood Pressure 146/97 H Pulse Oximetry 90 90 Oxygen Delivery Nasal Cannula Oxygen Flow Rate 4 01/09/23 21:27 01/10/23 00:00 01/10/23 00:00 Temperature 97.0 F L Pulse R
--- NOTE | 2023-01-10 09:27 | PCPTNOTE ---
Pt is dependent at baseline - pt uses a sit to stand/mary lift at baseline. Dr. Yousif (current hospitalist) made aware of therapy discharging Physical therapy order.
[2023-01-10 10:17] LABS: Basophils Percent Auto 0.6 % (0.2-1.2); Eosinophils Absolute Auto 0.2 K/mm3 (0-0.3); Eosinophils Percent Auto 2.5 % (0-4.4); Hematocrit 55.3 % (37.0-47.0); Hemoglobin 16.7 g/dL (12.0-15.0); Immature Granulocyte Absolute 0.02 K/mm3 (0.00-0.031); Immature Granulocyte Percent A 0.3 % (0-0.5); Lymphocytes Percent Auto 11.6 % (18.3-44.2); Mean Corpuscular HGB Conc 30.2 g/dl (32-36); Mean Corpuscular Hemoglobin 30.2 pg (26-34); Mean Platelet Volume 9.9 fl (7.4-10.4); Monocytes Absolute Auto 0.5 K/mm3 (0.1-0.6); Monocytes Percent Auto 7.4 % (2.6-8.5); Neutrophils Absolute Auto 5.4 K/mm3 (1.3-6.7); Neutrophils Percent Auto 77.6 % (45.5-73.1); Platelet Count Result 169 k/mm3 (150-375); Red Blood Count 5.53 M/mm3 (4.2-5.4); Red Cell Distribution Width 17.9 % (11.5-14.5); White Blood Count 6.9 K/mm3 (4.5-10.0)
[2023-01-10 10:33] LABS: Blood Urea Nitrogen 26 mg/dL (7-17); Calcium 8.3 mg/dL (8.4-10.2); Carbon Dioxide > 40 mmol/L (22-30); Chloride 93 mmol/L (98-107); Estimated CRCL calculation 53 ml/min; Estimated Glomerular Filt Rate 48; Glucose 131 mg/dL (65-110); Potassium 3.6 mmol/L (3.4-5.0); Sodium 139 mmol/L (137-145)
--- NOTE | 2023-01-10 11:54 | P.CDI_ITS ---
CDI Query Clarification Request Documented history of CHF. CHF noted in the assessment and plan. Lasix listed as a home medication. Patient receiving Lasix. Elevated BNP on 01/08/23 lab work. Pulmonary edema and CHF noted on the 01/08/23 chest xray. Please specify type and acuity of heart failure if known. * Acute * Chronic * Acute on Chronic * Unknown * Systolic * Diastolic * Combined Systolic and Diastolic * Unknown <Zoie Herrera RN - Last Filed: 01/10/23 11:56> Clarified Diagnosis Clarified Diagnosis: Acute on chronic diastolic heart failure <Arvin Yousif MD - Last Filed: 01/10/23 14:34>
--- NOTE | 2023-01-10 17:32 | PC.NURSE ---
This patient, Ashley Croft, was transferred to [ [facility]] on 01/10/23 at 1732. Personal belongings sent with patient. Report given to [ Nu]. Appropriate documentation sent with patient.
--- NOTE | 2023-01-10 19:50 | PCRCNOTE ---
Pt placed on BIPAP /6 R-12 with 4 Liter oxygen bleed in. Pt tolerates BIPAP well, sats 95%
[2023-01-10] MEDS: rOPINIRole HCL 0.5 MG TABLET PO (20:43)
[2023-01-10] MEDS: ATORVASTATIN 10 MG TABLET PO (20:43)
[2023-01-10] MEDS: dilTIAZem HCL CD 180 MG CAP.24HR PO (20:43)
[2023-01-10] MEDS: GABAPENTIN 400 MG CAPSULE 1200 MG PO (20:43)
[2023-01-10] MEDS: WATER FOR IRRIGATION, STERILE 1,000 ML BOTTLE 1000 ML (20:44)
[2023-01-10] MEDS: LATANOPROST 0.005% OP SOLN 2.5 ML BTL 1 DROP EACH EYE (20:44)
[2023-01-10] MEDS: ALBUTEROL SULFATE (*SP) AEROSOL 1 PUFF 2 PUFF INHALATION (22:10)
[2023-01-10] MEDS: ALBUTEROL SULFATE NEB 2.5 MG/3 ML INH 10 MG INHALATION (23:44)
[2023-01-11] VITALS (30 sets, daily range): BP systolic 152–187; BP diastolic 68–95; PULSE 59–86; RESP 16–24; TEMP 36.2–36.9; O2SAT 92–97
--- NOTE | 2023-01-11 00:59 | P.PNCROSS_ITS ---
Event Note Event Note Event Note: 01/10/2023 at approximately 23:00 Nursing staff called to notify me that the patient kept having recurrent episodes of profound hypoxia with oxygen saturations down to the 60s. Earlier in the day patient been transferred from IMU to [address] [place] [id number]. On arrival to the floor the patient's oxygen saturations were down in the 70s. Patient was titrated up from 4 L of oxygen up to 6 and 7 L high-flow. Despite this patient continued to have episodes of hypoxia. An order was received from daytime provider for BiPAP. However patient was continually taking BiPAP off when she would cough. She reported that she felt like she was choking. They found the patient multiple times with profound hypoxia. Patient was placed on continuous pulse ox. Respiratory therapy came in evaluate the patient and the patient was placed on a nasal BiPAP which seemed to work for the patient but when she would fall asleep she would again become profoundly a hypoxic. I ordered a stat chest x-ray and stat ABG. Patient's ABG was relatively stable with a compensated pH and chronic level of hypercarbia. The patient's PO2 correlated to her oxygen saturations of 88% at the time of the ABG. Patient was on BiPAP of 16 over 6 with 40% FiO2 at the time of the ABG. A stat chest x-ray was reviewed and seemed to be relatively stable compared to prior. Patient had had almost 4 L of urine output for 24 hour shift however the 1 L of urine in the catheter bag was not contributed to the 3 L at had already been documented for the day. The patient was responding well to diuretic therapy. She was only getting her home p.r.n. albuterol inhaler. I went to evaluate the patient she was tachypneic with shallow respirations and markedly decreased breath sounds. I went re- evaluated her after an hour long nebulizer treatment she did have improved air movement in seemed more comfortable. Scheduled nebulizers were ordered with albuterol and Atrovent. I also added Mucinex to help thin the patient's secretions and maybe help her clear the mucus she is reporting from her cough. Although I think some of her sensation of choking and coughing could be due to her fluid status. At this time I feel comfortable leaving the patient on the medical floor with BiPAP as I think that the patient will be able to be weaned in the morning to nasal cannula. Hopefully her oxygen saturations will improve will be unable to wean her oxygen back down to 4 L. Patient is on chronic oxygen therapy at home of 2 L. patient has marked polycythemia baseline suggesting that she is chronically hypoxic. I suspect patient's symptoms are due to been a christiansen of untreated obstructive sleep apnea, COPD exacerbation and CHF. If symptoms do not improve may consider some preload reduction with nitroglycerin paste. Will continue to monitor closely. 45 minute spent in critical care activities. Due to a high probability of clinically significant, life threatening deterioration, the patient required my highest level of preparedness to intervene emergently and I personally spent this critical care time directly and personally managing the patient. This critical care time included obtaining a history; examining the patient; pulse oximetry; ordering and review of studies; arranging urgent treatment with development of a management plan; evaluation of patient's response to treatment; frequent reassessment; and discussions with other providers. It was exclusive of separately billable procedures and treating other patients and teaching time. Please see Assessment and Plan section and the rest of the note for further information on patient assessment and treatment.
[2023-01-11 01:05] LABS: HCO3 ABG 42.1 mEq/l (22.0-26.0); PCO2 ABG 65.5 mmHg (35.0-45.0); PO2 ABG 66.8 mmHg (80.0-100.0); pH ABG 7.426 (7.350-7.450)
[2023-01-11 01:06] LABS: Alveolar/Arterial O2 Gradient 143.1 mmHg; Carboxyhemoglobin 1.5 % THb (0-2.0); Methemoglobin ABG 0.3 %THb (0-1.5); Oxygen Content ABG 20.7 %vol (16.0-22.0); Oxygen Saturation ABG 93.1 % (95.0-100.0); Oxyhemoglobin 91.1 % THb (90.0-100.0); Total Hemoglobin 16.2 g/dL (12.0-18.0)
[2023-01-11 01:07] LABS: Device NON-INVASIVE VENT; Fractional Inspired Oxygen 40 %; Modified Allen's Test Pass; PO2 FiO2 Ratio Arterial Blood 1.67 %; Site Drawn LEFT RADIAL
[2023-01-11 01:08] LABS: Non-Invasive Expiratory Pressure 6 CMH2O; Non-Invasive Inspiratory Pressure 12 CMH2O; Non-Invasive Vent Rate 12 /MIN
[2023-01-11] MEDS: IPRATROPIUM BR 0.02% INH SOLN 0.5 MG/2.5 ML VIAL INHALATION ×5 (02:34→20:30)
[2023-01-11] MEDS: ACETAMINOPHEN 325 MG TABLET 650 MG PO ×2 (06:04→23:21)
[2023-01-11] MEDS: hydrOXYzine pamoate 25 MG CAPSULE 50 MG PO (06:04)
[2023-01-11 07:10] LABS: Basophils Absolute Auto 0.1 K/mm3 (0.0-0.1); Basophils Percent Auto 0.7 % (0.2-1.2); Eosinophils Absolute Auto 0.2 K/mm3 (0-0.3); Eosinophils Percent Auto 2.1 % (0-4.4); Hematocrit 51.9 % (37.0-47.0); Hemoglobin 15.4 g/dL (12.0-15.0); Immature Granulocyte Absolute 0.03 K/mm3 (0.00-0.031); Immature Granulocyte Percent A 0.4 % (0-0.5); Lymphocytes Percent Auto 12.6 % (18.3-44.2); Mean Corpuscular HGB Conc 29.7 g/dl (32-36); Mean Corpuscular Hemoglobin 29.8 pg (26-34); Mean Corpuscular Volume 100.6 fl (80-100); Mean Platelet Volume 10.1 fl (7.4-10.4); Monocytes Absolute Auto 0.6 K/mm3 (0.1-0.6); Monocytes Percent Auto 8.1 % (2.6-8.5); Neutrophils Absolute Auto 5.4 K/mm3 (1.3-6.7); Neutrophils Percent Auto 76.1 % (45.5-73.1); Platelet Count Result 163 k/mm3 (150-375); Red Blood Count 5.16 M/mm3 (4.2-5.4); Red Cell Distribution Width 17.2 % (11.5-14.5); White Blood Count 7.1 K/mm3 (4.5-10.0)
[2023-01-11 07:27] LABS: Blood Urea Nitrogen 28 mg/dL (7-17); Calcium 8.1 mg/dL (8.4-10.2); Carbon Dioxide > 40 mmol/L (22-30); Chloride 94 mmol/L (98-107); Estimated CRCL calculation 53 ml/min; Estimated Glomerular Filt Rate 48; Glucose 100 mg/dL (65-110); Potassium 3.4 mmol/L (3.4-5.0); Sodium 140 mmol/L (137-145)
[2023-01-11] MEDS: ALBUTEROL SULFATE NEB 2.5 MG/3 ML INH 5 MG INHALATION (07:35)
[2023-01-11] MEDS: ALBUTEROL SULFATE NEB 2.5 MG/3 ML INH INHALATION ×3 (07:35→20:30)
--- NOTE | 2023-01-11 07:36 | PM.IMPN ---
Progress Note: A&P Assessment and Plan (1) CHF exacerbation: Code(s): I50.9 - Heart failure, unspecified Status: Acute (2) Elevated troponin: Code(s): R77.8 - Other specified abnormalities of plasma proteins Status: Acute Plan acute CHF preserved ejection fraction exacerbation -patient clinically fluid overloaded, chest x-ray consistent with edema, elevated BNP 23k -patient given IV Lasix in ED, will continue diuresis 40 mg IV Lasix b.i.d. -placing Davis catheter for strict I&O -pending limited echo h/o preserved EF -continue fluid restriction and cardiac diet consult cycle specialist acute on chronic hypoxic and hypercarbic respiratory failure Patient is morbidly obese, BMI 62 Acute on chronic respiratory failure with hypercapnia and hypoxemia Likely resulting from fluid overload and obesity hypoventilation syndrome Patient is on IV Lasix Repeat chest x-ray today, still has patchy infiltrate in right lungs, possible pneumonia Start doxy and ceftriaxone IV Consult toys inspector evaluation and treatment elevated troponin -likely secondary to CHF exacerbation -no active chest pain, ACS ruled out, will trend troponins, EKG showed AFib Consult cycle specialist elevated creatinine -creatinine 1.1 possibility of cardiorenal syndrome COPD exacerbation -COPD on 2L HOT: Now patient is on BiPAP and ABG shows worsening CO2 retention adult patient is on diuretic medication Patchy infiltrate in right lung Start antibiotics see above Start DuoNeb scheduled albuterol nebulizer p.r.n. Start methylprednisolone iv Follow-up CBC CMP, procalcitonin Consult toys inspector for evaluation treatment -Barretts esophagus, GERD: protonix -gout: allopurinol -chronic atrial fibrillation: AC with eliquis, rate control diltiazem -HLD: statin -TR: ferrous sulfate -neuropathy: gabapentin -morbid obesity, wheelchair bound: poor exercise effort -h/o breast cancer: on letrozole Diet: Cardiac with fluid restriction 1500 cc DVT prophylaxis: Eliquis Code status: Full code Disposition: Likely home in 2-3 days Subjective Date/time seen: 01/11/23 07:36 Interval history: I saw and examined the patient. Patient is short of breath, has cough with scant phlegm. Dyspnea is getting worse. ABG shows hypoxemic respiratory failure with hypercapnia. Exam Narrative: - GENERAL: Pleasant morbidly obese mild respiratory distress. - EYES: EOMI. Anicteric. - HENT: Moist mucous membranes. - LUNGS: Course lungs worse on expiration, tachypneic - CARDIOVASCULAR: Regular rate and rhythm. - ABDOMEN: Soft, non-tender and non-distended. - EXTREMITIES: 2+pitting edema throughout - NEUROLOGIC: No focal neurological deficits. CN II-XII grossly intact. - PSYCHIATRIC: Awake, Alert and oriented x 3. Appropriate mood and affect. - SKIN: No rashes or lesions. Warm. Objective Data Vital Signs Vital Signs: Vital Signs - 24 hr 01/10/23 08:23 01/10/23 08:25 01/10/23 09:19 Temperature 96.5 F L Pulse Rate 68 70 Respiratory Rate 20 22 H Blood Pressure 183/77 H Pulse Oximetry 92 91 Oxygen Delivery Nasal Cannula Oxygen Flow Rate 5 Fraction of Inspired Oxygen 01/10/23 08:00 01/10/23 10:00 01/10/23 08:00 Temperature Pulse Rate 62 65 Respiratory Rate Blood Pressure Pulse Oximetry 92 Oxygen Delivery Nasal Cannula Oxygen Flow Rate 4 Fraction of Inspired Oxygen 01/10/23 12:12 01/10/23 12:00 01/10/23 16:00 Temperature 97.0 F L Pulse Rate 65 67 59 L Respiratory Rate 22 H Blood Pressure 160/86 H Pulse Oximetry 90 Oxygen Delivery Oxygen Flow Rate Fraction of Inspired Oxygen 01/10/23 17:00 01/10/23 17:45 01/10/23 19:39 Temperature 97.5 F L Pulse Rate 63 89 Respiratory Rate 24 H 14 Blood Pressure 152/83 H Pulse Oximetry 94 91 95 Oxygen Delivery Nasal Cannula BiPAP Oxygen Flow Rate 6 Fraction of Inspired Oxygen 01/10/23 19:50 01/10/23 20:26
[2023-01-11 07:52] LABS: Alveolar/Arterial O2 Gradient 294.4 mmHg; Base Excess ABG 13.5 mEq/l (+/-2.0); Fractional Inspired Oxygen 64 %; HCO3 ABG 41.9 mEq/l (22.0-26.0); Oxygen Content ABG 21.5 %vol (16.0-22.0); Oxygen Saturation ABG 96.5 % (95.0-100.0); Oxyhemoglobin 94.4 % THb (90.0-100.0); PO2 ABG 88.1 mmHg (80.0-100.0); PO2 FiO2 Ratio Arterial Blood 1.38 %; Total Hemoglobin 16.2 g/dL (12.0-18.0)
[2023-01-11 07:56] LABS: Device HIGH FLOW THERAPY; Modified Allen's Test Pass; PCO2 ABG 67.7 mmHg (35.0-45.0); Site Drawn LEFT RADIAL
[2023-01-11 08:30] LABS: Procalcitonin 0.1 ng/mL
[2023-01-11] MEDS: FUROSEMIDE INJ 40 MG/4 ML VIAL IV PUSH (08:57)
[2023-01-11] MEDS: DOXYCYCLINE 100 MG/NS 100 ML 100 MG/100 ML BAG IVPB ×2 (09:18→20:37)
[2023-01-11 09:19] LABS: Anisocytosis 1+ (NORMAL); Hypochromasia 1+ (NORMAL); Platelet Estimate Adequate (Adequate)
[2023-01-11 09:20] LABS: Schistocytes None Seen (NORMAL)
--- NOTE | 2023-01-11 09:55 | PM.PNCARD ---
Progress Note: A&P Assessment and Plan (1) CHF exacerbation: Code(s): I50.9 - Heart failure, unspecified Status: Acute (2) Paroxysmal atrial fibrillation: Code(s): I48.0 - Paroxysmal atrial fibrillation Status: Acute Plan 77-year-old lady with: Chronic atrial fibrillation and diastolic heart failure also hypoventilation due to morbid obesity( BMI 62). I will transition her diuretic to intravenous Bumex as her chest x-ray showed old does demonstrate some pulmonary congestion. Apparently decision has been made to transfer the patient to IMU because of her desaturation which occurred last night as described above. Oral Lezama MD [facility] Subjective Date/time seen: Date of service: 01/11/23 09:55 Interval history: Cardiology follow up for CHF, Afib Feeling better this morning. Less short of breath. Had some tingling/pain in her legs last night but otherwise is without complaint. Date of service 01/11/2023: Patient was seen last night by the air quality technician because of very low oxygen saturations would which occur when she was off of her BiPAP. She did not have any obvious change in her hemodynamic status. Chest x-ray still shows some pulmonary congestion but not really any better or worse than the prior film. She is awake and alert on BiPAP this morning. Her only complaint is that she has not been given breakfast. Exam Const: General: comfortable, no acute distress, alert and awake Orientation/consciousness: patient oriented x3 Other: Morbidly obese HENMT: Head: normal to inspection Eyes: General: appearance normal, both eyes and all related structures Pupils: Equal, round and reactive pupils present Neck: Neck: normal visual inspection and supple Carotids: normal carotid upstroke Other: Unable to assess JVD due to body habitus Resp: Effort & Inspection: normal respiratory effort Auscultation: not clear to auscultation bilaterally and rales Cardio: Rate: regular rate Rhythm: abnormal rhythm irregularly irregular Heart sounds: S1 normal heart sound present, S2 normal heart sound present and Murmur heart sound present systolic GI: Auscultation: normal bowel sounds Skin: General skin exam: normal color Neuro: General: patient oriented x3 Cranial nerves: Yes Equal, round and reactive pupils present Extrem: General: abnormal to inspection and edema (mild bilateral lower extremity edema ) Psych: Appearance: grossly normal Mental Status: mental status grossly normal Objective Data Vital Signs Vital Signs: Vital Signs - 24 hr 01/10/23 10:00 01/10/23 12:12 01/10/23 12:00 Temperature 36.1 C L Pulse Rate 65 65 67 Respiratory Rate 22 H Blood Pressure 160/86 H Pulse Oximetry 90 Oxygen Delivery Oxygen Flow Rate Fraction of Inspired Oxygen 01/10/23 16:00 01/10/23 17:00 01/10/23 17:45 Temperature 36.4 C L Pulse Rate 59 L 63 Respiratory Rate 24 H Blood Pressure 152/83 H Pulse Oximetry 94 91 Oxygen Delivery Nasal Cannula Oxygen Flow Rate 6 Fraction of Inspired Oxygen 01/10/23 19:39 01/10/23 19:50 01/10/23 20:26 Temperature 37.1 C Pulse Rate 89 62 Respiratory Rate 14 20 Blood Pressure 138/86 Pulse Oximetry 95 95 92 Oxygen Delivery BiPAP BiPAP Oxygen Flow Rate 4 Fraction of Inspired Oxygen 01/10/23 23:35 01/10/23 23:47 01/10/23 20:00 Temperature Pulse Rate 86 80 62 Respiratory Rate 18 17 Blood Pressure Pulse Oximetry 93 Oxygen Delivery BiPAP Oxygen Flow Rate Fraction of Inspired Oxygen 01/10/23 20:00 01/11/23 00:00 01/11/23 02:36 Temperature Pulse Rate 62 59 L 63 Respiratory Rate 22 H 19 Blood Pressure Pulse Oximetry 78 L Oxygen Delivery BiPAP Oxygen Flow Rate Fraction of Inspired Oxygen 01/11/23 02:37 01/11/23 00:10 01/11/23 02:50 Temperature Pulse Rate 86 67 67 Respiratory Rate 18 17 17 Blood Pressure Pulse Oximetry 93 Oxygen Deli
--- NOTE | 2023-01-11 10:06 | PCOTNOTE ---
Spoke with Dr. Yousif regarding pt. dependancy at baseline. Hospitalist in agreement for cancelation of therapy orders, and states he will continue to prepare pt. for safe discharge with care coordination.
[2023-01-11] MEDS: allopurinoL 100 MG TABLET 200 MG PO (10:48)
[2023-01-11] MEDS: FERROUS SULFATE 325 MG TABLET DR PO ×2 (10:49→18:15)
[2023-01-11] MEDS: EMPAGLIFLOZIN 10 MG TABLET PO (10:49)
[2023-01-11] MEDS: calcitrioL 0.25 MCG CAPSULE PO (10:49)
[2023-01-11] MEDS: APIXABAN 5 MG TABLET PO ×2 (10:49→20:36)
[2023-01-11] MEDS: GABAPENTIN 300 MG CAPSULE 600 MG PO (10:50)
[2023-01-11] MEDS: FLUTICASONE PROPIONATE 0.05% NA SPR 16 GM BTL (*BKC) 2 SPRAY NASAL (10:50)
[2023-01-11] MEDS: PANTOPRAZOLE 40 MG TABLET PO (10:51)
[2023-01-11] MEDS: guaiFENesin 12 HR 600 MG TABCR 1200 MG PO ×2 (10:51→20:35)
[2023-01-11] MEDS: LETROZOLE (*CHEMO) 2.5 MG TABLET PO (10:51)
[2023-01-11] MEDS: cefTRIAXone 2 GM/NS 100 ML 2 GM/100 ML BAG IVPB (10:52)
[2023-01-11] MEDS: methylPREDNISolone SOD SUCC 125 MG VIAL 60 MG IV PUSH ×3 (12:46→23:23)
--- NOTE | 2023-01-11 14:20 | PM.CNPUL ---
Assessment and Plan Assessment and plan (1) Acute on chronic respiratory failure with hypoxia and hypercapnia: Code(s): J96.21 - Acute and chronic respiratory failure with hypoxia; J96.22 - Acute and chronic respiratory failure with hypercapnia Status: Acute Assessment and Plan: She has been on O2 for more than year at home, uses 2 L/min in the day, may leave it off at night; she has severe secondary pulmonary hypertension due to chronic hypoxemia and untreated ROSALIE as well as left heart disease; had a home sleep test, was placed on treatment, probably APAP, did not tolerate it well. Said that she could not have a sleep study in a sleep lab due to her wheelchair need, non-ambulatory status, dependence on a [id number] device to help with getting from wheelchair to bed, and due to using diapers. She is not incontinent; just has difficulty getting to toilet, so uses diapers for urination, not defecation. She may be able to qualify for a non-invasive positive pressure device such as Astral or Trilogy to assist with managing hypercapnia. She says that she had a home sleep test again a few weeks ago, waiting on results. We should be able to arrange nnpv prior to discharge from hospital, which may keep her from being re-admitted. (2) COPD (chronic obstructive pulmonary disease): Code(s): J44.9 - Chronic obstructive pulmonary disease, unspecified Status: Acute Assessment and Plan: Hx of COPD, on Trelegy 100 one puff a day, albuterol inhaler TID. Does not have daily sputum, does not have recurrent infections. She does not sit upright to eat. She reclines with eating leading to chronic aspiration. She has had Tobacco: up to 2 ppd starting age 19 quitting 1989, 25 years x 2 ppd, 50 pack years. * PFT 09/05/2020 = FEV10.79 L, 44%, FVC 1.39 L, 59%, FEV1/FVC=57%; 15% increase with FVC > than 200 ml. (3) Morbid obesity: Code(s): E66.01 - Morbid (severe) obesity due to excess calories Status: Acute Assessment and Plan: She has gained 50-75 lb over the last year, BMI 62 leading to difficulties getting help from her care giving team. The 72 year-old women who help her are at the upper limit of weight that they can handle. Patient is not concerned. (4) Aspiration pneumonia: Code(s): J69.0 - Pneumonitis due to inhalation of food and vomit Status: Acute Assessment and Plan: She has had aspiration in the past, was treated Jan 2022; she reclines while eating, does not take precautions to avoid having food fall into her airway. Daughter says that she does not sit upright to eat. This is an ongoing issue [place] to obesity, difficutly positioning herself, and comfort being in bed. not sure how interrupt behaviors that lead to worsening status. She seems to have no insight into why she is having some many problems, or her role in what is happening. Over this long weekend, not sure that having Speech eval will be possible. Not sure patient will benefit due to her resistance to accept recommendations. Plan I spoke with her daughter, Zoie, . She gave additional information about the patient. acetazolamide 500 mg IV, then oral acetazolamide at lower doses; this will decrease retained bicarbonate from her contraction alkalosis; nppv with AVAPS AE settings Cornet valve to help clear secretions , Speech Evaluation and order for her to be sitting all the way up when she eats. nppv for use in hospital and to be able to take home; This may avoid having a sleep study which would be a difficult project; no vehicle, bed bound in diapers, [id number] device to transfer chair to bed The patient has a hospital bed at home, is getti
[2023-01-11] MEDS: BUMETANIDE INJ 1 MG/4 ML VIAL IV PUSH (18:16)
[2023-01-11] MEDS: acetaZOLAMIDE SODIUM FOR INJ 500 MG VIAL IV PUSH (18:16)
[2023-01-11] MEDS: GABAPENTIN 400 MG CAPSULE 1200 MG PO (20:34)
[2023-01-11] MEDS: rOPINIRole HCL 0.5 MG TABLET PO (20:35)
[2023-01-11] MEDS: ATORVASTATIN 10 MG TABLET PO (20:35)
[2023-01-11] MEDS: dilTIAZem HCL CD 180 MG CAP.24HR PO (20:36)
[2023-01-11] MEDS: LATANOPROST 0.005% OP SOLN 2.5 ML BTL 1 DROP EACH EYE (22:01)
[2023-01-12] VITALS (24 sets, daily range): BP systolic 131–158; BP diastolic 58–92; PULSE 57–89; RESP 16–24; TEMP 36.1–36.8; O2SAT 92–100
[2023-01-12] MEDS: IPRATROPIUM BR 0.02% INH SOLN 0.5 MG/2.5 ML VIAL INHALATION ×4 (02:02→20:22)
[2023-01-12] MEDS: ALBUTEROL SULFATE NEB 2.5 MG/3 ML INH INHALATION ×4 (02:02→20:22)
[2023-01-12] MEDS: methylPREDNISolone SOD SUCC 125 MG VIAL 60 MG IV PUSH ×3 (05:10→17:49)
[2023-01-12 05:35] LABS: Basophils Percent Auto 0.3 % (0.2-1.2); Hematocrit 53.3 % (37.0-47.0); Immature Granulocyte Absolute 0.04 K/mm3 (0.00-0.031); Immature Granulocyte Percent A 0.6 % (0-0.5); Lymphocytes Absolute Auto 0.55 K/mm3 (0.9-3.2); Mean Platelet Volume 10.3 fl (7.4-10.4); Monocytes Absolute Auto 0.1 K/mm3 (0.1-0.6); Monocytes Percent Auto 1.3 % (2.6-8.5); Neutrophils Absolute Auto 6.2 K/mm3 (1.3-6.7); Neutrophils Percent Auto 89.8 % (45.5-73.1); Platelet Count Result 176 k/mm3 (150-375); Red Blood Count 5.33 M/mm3 (4.2-5.4); Red Cell Distribution Width 17.3 % (11.5-14.5); White Blood Count 6.9 K/mm3 (4.5-10.0)
[2023-01-12 05:45] LABS: Anion Gap 8 mmol/L (8-16); Blood Urea Nitrogen 30 mg/dL (7-17); Calcium 8.3 mg/dL (8.4-10.2); Carbon Dioxide 37 mmol/L (22-30); Chloride 94 mmol/L (98-107); Estimated CRCL calculation 48 ml/min; Estimated Glomerular Filt Rate 44; Glucose 150 mg/dL (65-110); Potassium 3.3 mmol/L (3.4-5.0); Sodium 139 mmol/L (137-145)
[2023-01-12 06:02] LABS: Procalcitonin 0.1 ng/mL
[2023-01-12] MEDS: FLUTICASONE/UMECLIDIN/VILANTER 100-62.5-25 MCG ELLIPTA 1 PUFF INHALATION (08:35)
--- NOTE | 2023-01-12 08:45 | PM.IMPN ---
Progress Note: A&P Assessment and Plan (1) CHF exacerbation: Code(s): I50.9 - Heart failure, unspecified Status: Acute (2) Elevated troponin: Code(s): R77.8 - Other specified abnormalities of plasma proteins Status: Acute Plan acute CHF preserved ejection fraction exacerbation -patient clinically fluid overloaded, chest x-ray consistent with edema, elevated BNP 23k -patient given IV Lasix in ED, will continue diuresis 40 mg IV Lasix b.i.d. -placing Davis catheter for strict I&O -pending limited echo h/o preserved EF -continue fluid restriction and cardiac diet consult steward/stewardess tourist class acute on chronic hypoxic and hypercarbic respiratory failure Patient is morbidly obese, BMI 62 Acute on chronic respiratory failure with hypercapnia and hypoxemia Likely resulting from fluid overload and obesity hypoventilation syndrome Patient is on IV Lasix, and start acetazolamide 500 mg IV to decrease his bicarbonate retention per mailmaster Repeat chest x-ray today, still has patchy infiltrate in right lungs, possible aspiration pneumonia or pneumonitis Start doxy and ceftriaxone IV Consult mailmaster evaluation and treatment, patient mailmaster consultation Shortness of breath is improving, but has still has significant dyspnea with mild exertion elevated troponin -likely secondary to CHF exacerbation -no active chest pain, ACS ruled out, will trend troponins, EKG showed AFib Consult steward/stewardess tourist class CKD stage 3 Elevated BUN creatinine close to baseline bicarbonate retention is improving COPD exacerbation -COPD on 2L HOT: Now patient is on BiPAP and ABG shows worsening CO2 retention adult patient is on diuretic medication Patchy infiltrate in right lung Start antibiotics see above Start DuoNeb scheduled albuterol nebulizer p.r.n. Start methylprednisolone iv Follow-up CBC CMP, procalcitonin Consult mailmaster for evaluation treatment -Barretts esophagus, GERD: protonix -gout: allopurinol -chronic atrial fibrillation: AC with eliquis, rate control diltiazem -HLD: statin -TR: ferrous sulfate -neuropathy: gabapentin -morbid obesity, wheelchair bound: poor exercise effort -h/o breast cancer: on letrozole Patient needs nppv with AVAPS at discharge Diet: Cardiac with fluid restriction 1500 cc DVT prophylaxis: Eliquis Code status: Full code Disposition: Likely home in 2-3 days Subjective Date/time seen: 01/12/23 08:45 Interval history: I saw exam patient today, patient still has short of breath with mild exertion, cough with scant phlegm. Denies chest pain, abdomen pain, nausea vomiting diarrhea Exam Narrative: - GENERAL: Pleasant morbidly obese mild respiratory distress. - EYES: EOMI. Anicteric. - HENT: Moist mucous membranes. - LUNGS: Course lungs worse on expiration, tachypneic - CARDIOVASCULAR: Regular rate and rhythm. - ABDOMEN: Soft, non-tender and non-distended. - EXTREMITIES: 2+pitting edema throughout - NEUROLOGIC: No focal neurological deficits. CN II-XII grossly intact. - PSYCHIATRIC: Awake, Alert and oriented x 3. Appropriate mood and affect. - SKIN: No rashes or lesions. Warm. Objective Data Vital Signs Vital Signs: Vital Signs - 24 hr 01/11/23 08:54 01/11/23 10:40 01/11/23 10:41 Temperature Pulse Rate 65 65 Respiratory Rate 20 Blood Pressure 187/75 H Pulse Oximetry 92 92 Oxygen Delivery High Flow Therapy with Na Oxygen Flow Rate 40 Fraction of Inspired Oxygen 60 01/11/23 12:00 01/11/23 14:30 01/11/23 14:45 Temperature 98.5 F 98.3 F Pulse Rate 65 67 66 Respiratory Rate 16 16 Blood Pressure 161/68 H 154/73 H Pulse Oximetry 92 96 Oxygen Delivery Oxygen Flow Rate Fraction of Inspired Oxygen 01/11/23 14:28 01/11/23 14:41 01/11/23 14:25 Temperature Pulse Rate 68 62 62 Respiratory Rate 22 H 20 20 Blood Pressure Pulse Oximetry 94 Oxygen Delivery High Flow Therapy with Na Oxygen Flow Rate
[2023-01-12] MEDS: LETROZOLE (*CHEMO) 2.5 MG TABLET PO (09:20)
[2023-01-12] MEDS: GABAPENTIN 300 MG CAPSULE 600 MG PO (09:20)
[2023-01-12] MEDS: PANTOPRAZOLE 40 MG TABLET PO (09:20)
[2023-01-12] MEDS: guaiFENesin 12 HR 600 MG TABCR 1200 MG PO ×2 (09:20→20:28)
[2023-01-12] MEDS: BUMETANIDE INJ 1 MG/4 ML VIAL IV PUSH ×2 (09:21→17:50)
[2023-01-12] MEDS: EMPAGLIFLOZIN 10 MG TABLET PO (09:21)
[2023-01-12] MEDS: cefTRIAXone 2 GM/NS 100 ML 2 GM/100 ML BAG IVPB (09:21)
[2023-01-12] MEDS: allopurinoL 100 MG TABLET 200 MG PO (09:21)
[2023-01-12] MEDS: calcitrioL 0.25 MCG CAPSULE PO (09:21)
[2023-01-12] MEDS: APIXABAN 5 MG TABLET PO ×2 (09:21→20:28)
[2023-01-12] MEDS: FERROUS SULFATE 325 MG TABLET DR PO ×2 (09:21→17:49)
[2023-01-12] MEDS: DOXYCYCLINE 100 MG/NS 100 ML 100 MG/100 ML BAG IVPB ×2 (09:22→20:37)
[2023-01-12] MEDS: FLUTICASONE PROPIONATE 0.05% NA SPR 16 GM BTL (*BKC) 2 SPRAY NASAL (09:50)
[2023-01-12] MEDS: ERGOCALCIFEROL 50,000 UNITS CAPSULE 50000 UNITS PO (09:50)
--- NOTE | 2023-01-12 10:42 | PM.PNCARD ---
Progress Note: A&P Assessment and Plan (1) CHF exacerbation: Code(s): I50.9 - Heart failure, unspecified Status: Acute Plan 77-year-old lady with volume overload, morbid obesity and on done early obstructive apnea. She is tolerating IV Bumex at least for the time being no problems with hypotension labs do not show any development of a pre renal state. Will keep this regimen going for the time being. Patient is in mobile, nonambulatory because of her massive obesity. Long-term management is obviously going to be quite challenging Oral Lezama MD [facility] Subjective Date/time seen: Date of service: 01/12/23 10:42 Interval history: Cardiology follow up for CHF, Afib Feeling better this morning. Less short of breath. Had some tingling/pain in her legs last night but otherwise is without complaint. Date of service 01/11/2023: Patient was seen last night by the police cadet because of very low oxygen saturations would which occur when she was off of her BiPAP. She did not have any obvious change in her hemodynamic status. Chest x-ray still shows some pulmonary congestion but not really any better or worse than the prior film. She is awake and alert on BiPAP this morning. Her only complaint is that she has not been given breakfast. Date of service 01/12/2023: Patient moved IMU yesterday for more close monitoring of her oxygenation. Pulmonology consult performed yesterday noted and appreciated. She does not feel appreciably be any different than yesterday. As mentioned in my note yesterday transitioned to IV Bumex to try to prompt a more brisk diuresis. Very difficult to assess this clinically given her morbid obesity/body habitus Exam Const: General: comfortable, no acute distress, alert and awake Orientation/consciousness: patient oriented x3 Other: Morbidly obese HENMT: Head: normal to inspection Eyes: General: appearance normal, both eyes and all related structures Pupils: Equal, round and reactive pupils present Neck: Neck: normal visual inspection and supple Carotids: normal carotid upstroke Other: Unable to assess JVD due to body habitus Resp: Effort & Inspection: normal respiratory effort Auscultation: not clear to auscultation bilaterally and rales Cardio: Rate: regular rate Rhythm: abnormal rhythm irregularly irregular Heart sounds: S1 normal heart sound present, S2 normal heart sound present and Murmur heart sound present systolic GI: Auscultation: normal bowel sounds Skin: General skin exam: normal color Neuro: General: patient oriented x3 Cranial nerves: Yes Equal, round and reactive pupils present Extrem: General: abnormal to inspection and edema (mild bilateral lower extremity edema ) Psych: Appearance: grossly normal Mental Status: mental status grossly normal Objective Data Vital Signs Vital Signs: Vital Signs - 24 hr 01/11/23 12:00 01/11/23 14:30 01/11/23 14:45 Temperature 36.9 C 36.8 C Pulse Rate 65 67 66 Respiratory Rate 16 16 Blood Pressure 161/68 H 154/73 H Pulse Oximetry 92 96 Oxygen Delivery Oxygen Flow Rate Fraction of Inspired Oxygen 01/11/23 14:28 01/11/23 14:41 01/11/23 14:25 Temperature Pulse Rate 68 62 62 Respiratory Rate 22 H 20 20 Blood Pressure Pulse Oximetry 94 Oxygen Delivery High Flow Therapy with Na Oxygen Flow Rate 40 Fraction of Inspired Oxygen 60 01/11/23 14:30 01/11/23 16:00 01/11/23 16:00 Temperature 36.4 C Pulse Rate 79 Respiratory Rate 17 Blood Pressure 155/95 H Pulse Oximetry 92 96 95 Oxygen Delivery High Flow Therapy with Na High Flow Therapy with Na Oxygen Flow Rate 40 40 Fraction of Inspired Oxygen 60 60 01/11/23 16:00 01/11/23 18:00 01/11/23 20:30 Temperature Pulse Rate 72 80 73 Respiratory Rate 22 H Blood Pressure Pulse Oximetry Oxygen Delivery Oxygen Flow Rate Fraction of Inspired Oxygen 01/11/23 20:56 01/11/23 20:45 0
--- NOTE | 2023-01-12 14:52 | PM.PNPUL ---
Progress Note: A&P Assessment and Plan (1) Acute on chronic respiratory failure with hypoxia and hypercapnia: Code(s): J96.21 - Acute and chronic respiratory failure with hypoxia; J96.22 - Acute and chronic respiratory failure with hypercapnia Status: Acute Assessment and Plan: She has been on O2 for more than year at home, uses 2 L/min in the day, may leave it off at night; she has severe secondary pulmonary hypertension due to chronic hypoxemia and untreated ROSALIE as well as left heart disease;? had a home sleep test, was placed on treatment, probably APAP, did not tolerate it well. Said that she could not have a sleep study in a sleep lab due to her wheelchair need, non-ambulatory status, dependence on a [id number] device to help with getting from wheelchair to bed, and due to using diapers. She is not incontinent; just has difficulty getting to toilet, so uses diapers for urination, not defecation. She may be able to qualify for a non-invasive positive pressure device such as Astral or Trilogy to assist with managing hypercapnia.? She says that she had a home sleep test again a few weeks ago, waiting on results. We should be able to arrange nnpv prior to discharge from hospital, which may keep her from being re-admitted.? (2) COPD (chronic obstructive pulmonary disease): Code(s): J44.9 - Chronic obstructive pulmonary disease, unspecified Status: Acute Assessment and Plan: Hx of COPD, on Trelegy 100 one puff a day, albuterol inhaler TID. Does not have daily sputum, does not have recurrent infections. She does not sit upright to eat. She reclines with eating leading to chronic aspiration. She has had Tobacco: up to 2 ppd starting age 19 quitting 1989, 25 years x 2 ppd, 50 pack years. * PFT 09/05/2020 = FEV10.79 L, 44%, FVC 1.39 L, 59%, FEV1/FVC=57%; 15% increase with FVC > than 200 ml. (3) Morbid obesity: Code(s): E66.01 - Morbid (severe) obesity due to excess calories Status: Acute Assessment and Plan: he has gained 50-75 lb over the last year, BMI 62 leading to difficulties getting help from her care giving team. The 72 year-old women who help her are at the upper limit of weight that they can handle. Patient is not concerned. (4) Aspiration pneumonia: Code(s): J69.0 - Pneumonitis due to inhalation of food and vomit Status: Acute Assessment and Plan: She has had aspiration in the past, was treated Jan 2022; she reclines while eating, does not take precautions to avoid having food fall into her airway. Daughter says that she does not sit upright to eat. This is an ongoing issue due to obesity with difficultly positioning herself, and comfort being in bed. I am not sure how interrupt behaviors that lead to worsening status. She seems to have no insight into why she is having some many problems, or her role in what is happening. Over this long weekend, not sure that having Speech evaluation will be possible. Not sure patient will benefit due to her resistance to accept recommendations. Plan Continue AVAPS with sleep and in the day as needed for shortness of breath. Repeat ABG in am. See if rehabilitation caseworker and RT can assist with procuring home Trilogy or other nppv at discharge based on her hypercapnia and poor response to BiPAP. 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 Please assist. She is getting bigger, outgrowing current bed. Thanks. This appears to be better tolerated than BiPAP. Decrease O2; she is on 40 L/min and 45%, sat is now 97%. This is higher than needed, can wean. Was on 80% yesterday, better now. Decrease solumedrol, 40 mg IV Q 8 hours. She can get MBS before discharge; high likel
[2023-01-12] MEDS: GABAPENTIN 400 MG CAPSULE 1200 MG PO (20:27)
[2023-01-12] MEDS: dilTIAZem HCL CD 180 MG CAP.24HR PO (20:28)
[2023-01-12] MEDS: ATORVASTATIN 10 MG TABLET PO (20:28)
[2023-01-12] MEDS: rOPINIRole HCL 0.5 MG TABLET PO (20:28)
[2023-01-12] MEDS: LATANOPROST 0.005% OP SOLN 2.5 ML BTL 1 DROP EACH EYE (20:32)
[2023-01-12] MEDS: ACETAMINOPHEN 325 MG TABLET 650 MG PO (23:11)
[2023-01-12] MEDS: methylPREDNISolone SOD SUCC 40 MG VIAL IV PUSH (23:40)
[2023-01-13] VITALS (23 sets, daily range): BP systolic 107–135; BP diastolic 53–76; PULSE 47–72; RESP 15–25; TEMP 36.4–37; O2SAT 90–100
[2023-01-13] MEDS: ALBUTEROL SULFATE NEB 2.5 MG/3 ML INH INHALATION ×2 (02:37→08:39)
[2023-01-13 04:44] LABS: Alveolar/Arterial O2 Gradient 133.6 mmHg; Base Excess ABG 7.6 mEq/l (+/-2.0); Fractional Inspired Oxygen 40 %; HCO3 ABG 34.2 mEq/l (22.0-26.0); Oxygen Content ABG 21.8 %vol (16.0-22.0); Oxygen Saturation ABG 96.8 % (95.0-100.0); Oxyhemoglobin 95.4 % THb (90.0-100.0); PCO2 ABG 54.4 mmHg (35.0-45.0); PO2 FiO2 Ratio Arterial Blood 2.22 %; Total Hemoglobin 16.2 g/dL (12.0-18.0); pH ABG 7.416 (7.350-7.450)
[2023-01-13 04:45] LABS: Device NON-INVASIVE VENT; Site Drawn LEFT BRACHIAL
[2023-01-13 04:46] LABS: Non-Invasive Vent Rate 15 /MIN
[2023-01-13] MEDS: methylPREDNISolone SOD SUCC 40 MG VIAL IV PUSH (06:21)
[2023-01-13] MEDS: GABAPENTIN 300 MG CAPSULE 600 MG PO (08:12)
[2023-01-13] MEDS: FLUTICASONE PROPIONATE 0.05% NA SPR 16 GM BTL (*BKC) 2 SPRAY NASAL (08:12)
[2023-01-13] MEDS: guaiFENesin 12 HR 600 MG TABCR 1200 MG PO ×2 (08:12→22:09)
[2023-01-13] MEDS: PANTOPRAZOLE 40 MG TABLET PO (08:12)
[2023-01-13] MEDS: BUMETANIDE INJ 1 MG/4 ML VIAL IV PUSH ×2 (08:12→17:30)
[2023-01-13] MEDS: LETROZOLE (*CHEMO) 2.5 MG TABLET PO (08:12)
[2023-01-13] MEDS: FERROUS SULFATE 325 MG TABLET DR PO ×2 (08:12→17:30)
[2023-01-13] MEDS: APIXABAN 5 MG TABLET PO ×2 (08:12→22:08)
[2023-01-13] MEDS: EMPAGLIFLOZIN 10 MG TABLET PO (08:12)
[2023-01-13] MEDS: calcitrioL 0.25 MCG CAPSULE PO (08:12)
[2023-01-13] MEDS: DOXYCYCLINE 100 MG/NS 100 ML 100 MG/100 ML BAG IVPB ×2 (08:13→20:45)
[2023-01-13] MEDS: allopurinoL 100 MG TABLET 200 MG PO (08:13)
[2023-01-13] MEDS: acetaZOLAMIDE TAB 250 MG TABLET 500 MG PO (08:13)
[2023-01-13] MEDS: cefTRIAXone 2 GM/NS 100 ML 2 GM/100 ML BAG IVPB (08:13)
[2023-01-13] MEDS: FLUTICASONE/UMECLIDIN/VILANTER 100-62.5-25 MCG ELLIPTA 1 PUFF INHALATION (08:39)
--- NOTE | 2023-01-13 08:46 | PM.IMPN ---
Progress Note: A&P Assessment and Plan (1) CHF exacerbation: Code(s): I50.9 - Heart failure, unspecified Status: Acute (2) Elevated troponin: Code(s): R77.8 - Other specified abnormalities of plasma proteins Status: Acute Plan acute CHF preserved ejection fraction exacerbation -patient clinically fluid overloaded, chest x-ray consistent with edema, elevated BNP 23k -patient given IV Lasix in ED, continue diuresis 40 mg IV Lasix b.i.d. -placing Davis catheter for strict I&O -pending limited echo h/o preserved EF -continue fluid restriction and cardiac diet consult iron cutter acute on chronic hypoxic and hypercarbic respiratory failure Patient is morbidly obese, BMI 62 Acute on chronic respiratory failure with hypercapnia and hypoxemia Likely resulting from fluid overload and obesity hypoventilation syndrome Patient is on IV Lasix, and start acetazolamide 500 mg IV to decrease his bicarbonate retention per manager facility Repeat chest x-ray today, still has patchy infiltrate in right lungs, possible aspiration pneumonia or pneumonitis Start doxy and ceftriaxone IV Consult manager facility evaluation and treatment, patient manager facility consultation Shortness of breath is improving, but has still has significant dyspnea with mild exertion Speech evaluation tomorrow elevated troponin -likely secondary to CHF exacerbation -no active chest pain, ACS ruled out, will trend troponins, EKG showed AFib Consult iron cutter CKD stage 3 Elevated BUN creatinine close to baseline bicarbonate retention is improving COPD exacerbation -COPD on 2L HOT: Now patient is on BiPAP and ABG shows worsening CO2 retention adult patient is on diuretic medication Patchy infiltrate in right lung Start antibiotics see above Start DuoNeb scheduled albuterol nebulizer p.r.n. Start methylprednisolone iv Follow-up CBC CMP, procalcitonin Consult manager facility for evaluation treatment -Barretts esophagus, GERD: protonix -gout: allopurinol -chronic atrial fibrillation: AC with eliquis, rate control diltiazem -HLD: statin -TR: ferrous sulfate -neuropathy: gabapentin -morbid obesity, wheelchair bound: poor exercise effort -h/o breast cancer: on letrozole Patient needs nppv with AVAPS at discharge Diet: Cardiac with fluid restriction 1500 cc DVT prophylaxis: Eliquis Code status: Full code Disposition: Likely home in 2-3 days Subjective Date/time seen: 01/13/23 08:46 Interval history: I saw exam patient today. Patient feels dyspnea is improving, has some cough with scant phlegm. Patient denies chest pain abdomen pain, nausea vomiting diarrhea. Patient afebrile, leukocytosis is trending down Exam Narrative: - GENERAL: Pleasant morbidly obese mild respiratory distress. - EYES: EOMI. Anicteric. - HENT: Moist mucous membranes. - LUNGS: Course lungs worse on expiration, tachypneic - CARDIOVASCULAR: Regular rate and rhythm. - ABDOMEN: Soft, non-tender and non-distended. - EXTREMITIES: 2+pitting edema throughout - NEUROLOGIC: No focal neurological deficits. CN II-XII grossly intact. - PSYCHIATRIC: Awake, Alert and oriented x 3. Appropriate mood and affect. - SKIN: No rashes or lesions. Warm. Objective Data Vital Signs Vital Signs: Vital Signs - 24 hr 01/12/23 08:51 01/12/23 09:55 01/12/23 10:00 Temperature Pulse Rate 67 63 66 Respiratory Rate 16 Blood Pressure Pulse Oximetry 97 Oxygen Delivery High Flow Therapy with Na Oxygen Flow Rate 40 Fraction of Inspired Oxygen 50 01/12/23 12:00 01/12/23 12:00 01/12/23 12:00 Temperature 98.2 F Pulse Rate 63 70 Respiratory Rate 20 Blood Pressure 141/71 H Pulse Oximetry 100 96 Oxygen Delivery High Flow Therapy with Na Oxygen Flow Rate 40 Fraction of Inspired Oxygen 50 01/12/23 14:00 01/12/23 14:17 01/12/23 14:55 Temperature Pulse Rate 66 65 66 Respiratory Rate 16 16 Blood Pressure Pulse Oxime
[2023-01-13 09:31] LABS: Basophils Percent Auto 0.2 % (0.2-1.2); Hematocrit 61.1 % (37.0-47.0); Hemoglobin 18.3 g/dL (12.0-15.0); Immature Granulocyte Absolute 0.07 K/mm3 (0.00-0.031); Immature Granulocyte Percent A 0.6 % (0-0.5); Lymphocytes Absolute Auto 0.47 K/mm3 (0.9-3.2); Lymphocytes Percent Auto 3.9 % (18.3-44.2); Mean Corpuscular Hemoglobin 30.1 pg (26-34); Mean Corpuscular Volume 100.5 fl (80-100); Mean Platelet Volume 10.6 fl (7.4-10.4); Monocytes Absolute Auto 0.2 K/mm3 (0.1-0.6); Monocytes Percent Auto 1.8 % (2.6-8.5); Neutrophils Absolute Auto 11.3 K/mm3 (1.3-6.7); Neutrophils Percent Auto 93.5 % (45.5-73.1); Platelet Count Result 186 k/mm3 (150-375); Red Blood Count 6.08 M/mm3 (4.2-5.4); Red Cell Distribution Width 18.9 % (11.5-14.5); White Blood Count 12.1 K/mm3 (4.5-10.0)
[2023-01-13 10:04] LABS: Procalcitonin 0.1 ng/mL
--- NOTE | 2023-01-13 10:59 | PM.PNPUL ---
Progress Note: A&P Assessment and Plan (1) COPD (chronic obstructive pulmonary disease): Code(s): J44.9 - Chronic obstructive pulmonary disease, unspecified Status: Acute Assessment and Plan: Hx of COPD, 52 PY quit 1989, PFT 09/05/2020 = FEV10.79 L, 44%, FVC 1.39 L, 59%, FEV1/FVC=57%; 15% increase with FVC > than 200 ml, chronic hypoxemic respiratory failure on 2 L oxygen at rest and with ambulation. Chronic hypercarbic respiratory failure with blood gas on 12/20/2019 7.47/59/109 on 2 L nasal cannula and on 01/08/2023 7.35/62/70 on 6 L nasal cannula, polycythemia with a hemoglobin of 17.1 on 05/22/2021, echocardiogram 01/09/2023 with moderately enlarged right ventricle with moderately reduced right ventricular systolic function, normal LV function with abnormal diastolic dysfunction and moderate tricuspid regurgitation with a PASP of 96. Maintained on Trelegy 100 one puff a day, albuterol inhaler TID. Does not have daily sputum, does not have recurrent infections. She does not sit upright to eat. She reclines with eating leading to chronic aspiration. Patient has chronic hypercarbic respiratory failure from COPD. Patient would benefit from a noninvasive ventilator to prevent progression and to avoid subsequent hospitalizations. Patient could not tolerate the BiPAP pressures and BiPAP did not correct her hypercarbia. Recommend noninvasive ventilation with the AVAPS AE mode. 01/13 the patient has no wheezes on exam today. I will change her Solu-Medrol to prednisone 40 mg p.o. q.day 1st dose on 01/14/2023 (steroids started 01/11/23). I will place the patient on levalbuterol nebulizers Q 6 as history of AFIB and she is off ipratropium as a history of glaucoma. I will discontinue trelegy today. I will order a CT angiogram of the chest to assess for PE, consolidations, effusions, and interstitial lung disease. Discussed with Dr. Benitez. Will follow with you. (2) Acute on chronic respiratory failure with hypoxia and hypercapnia: Code(s): J96.21 - Acute and chronic respiratory failure with hypoxia; J96.22 - Acute and chronic respiratory failure with hypercapnia Status: Acute Assessment and Plan: 01/12/23: She has been on O2 for more than year at home, uses 2 L/min in the day, may leave it off at night; she has severe secondary pulmonary hypertension due to chronic hypoxemia and untreated ROSALIE as well as left heart disease;? had a home sleep test, was placed on treatment, probably APAP, did not tolerate it well. Said that she could not have a sleep study in a sleep lab due to her wheelchair need, non-ambulatory status, dependence on a [id number] device to help with getting from wheelchair to bed, and due to using diapers. She is not incontinent; just has difficulty getting to toilet, so uses diapers for urination, not defecation. She may be able to qualify for a non-invasive positive pressure device such as Astral or Trilogy to assist with managing hypercapnia.? She says that she had a home sleep test again a few weeks ago, waiting on results. We should be able to arrange nnpv prior to discharge from hospital, which may keep her from being re-admitted.? 01/12 at 08:00 patient on 40 L and 60% FiO2 Patient has chronic hypercarbic respiratory failure from COPD. Patient would benefit from a noninvasive ventilator to prevent progression and to avoid subsequent hospitalizations. Patient could not tolerate the BiPAP pressures and BiPAP did not correct her hypercarbia. Recommend noninvasive ventilation with the AVAPS AE mode. 01/13 She did sleep with the hospital noninvasive ventilator with the AVAPS mode with a rate of 15, tidal volume 500, EPAP 4, minimal inspiratory pressure 6, maximal inspiratory pressure 25, inspiratory time 1.0, rise of 1 which is the fastest and 45% FiO2. ABG prior to removal of the machine was 7.42/55/89. These settings provide adequate ventilation. Once the patient's oxygenation has improved I will perform an overnight o
[2023-01-13] MEDS: LEVALBUTEROL NEB 1.25 MG/3 ML INHALATION ×2 (13:51→19:57)
[2023-01-13 14:51] LABS: Anion Gap 10 mmol/L (8-16); Blood Urea Nitrogen 38 mg/dL (7-17); Calcium 8.8 mg/dL (8.4-10.2); Carbon Dioxide 37 mmol/L (22-30); Chloride 94 mmol/L (98-107); Estimated CRCL calculation 48 ml/min; Estimated Glomerular Filt Rate 44; Glucose 196 mg/dL (65-110); Potassium 3.1 mmol/L (3.4-5.0); Sodium 141 mmol/L (137-145)
[2023-01-13 15:17] LABS: Thyroid Stimulating Hormone 0.899 uIU/mL (0.465-4.680)
[2023-01-13 15:58] LABS: Free T4 Free Thyroxine 1.11 ng/mL (0.78-2.19)
[2023-01-13] MEDS: HYDROcodone/acetaminophen (*CRX) 5-325 MG TABLET 1 TAB PO (21:00)
[2023-01-13] MEDS: dilTIAZem HCL CD 180 MG CAP.24HR PO (22:08)
[2023-01-13] MEDS: ATORVASTATIN 10 MG TABLET PO (22:08)
[2023-01-13] MEDS: GABAPENTIN 400 MG CAPSULE 1200 MG PO (22:09)
[2023-01-13] MEDS: rOPINIRole HCL 0.5 MG TABLET PO (22:09)
[2023-01-13] MEDS: LATANOPROST 0.005% OP SOLN 2.5 ML BTL 1 DROP EACH EYE (22:09)
[2023-01-14] VITALS (28 sets, daily range): BP systolic 135–151; BP diastolic 73–84; PULSE 49–74; RESP 17–22; TEMP 36.2–36.8; O2SAT 93–100
--- NOTE | 2023-01-14 | ECHO_ITS ---
Patient Info Name: Ashley Croft Age: 77 years : 1945 Gender: Female Ht: 60 in Wt: 313 lbs BSA: 2.56 m2 HR: 60 bpm BP: 135 / 73 mmHg Heart Rhythm: Sinus Rhythm Technical Quality: Fair Exam Date: 01/14/2023 8:54 AM Exam Location: [facility] Card Pulmonary Patient Status: Inpatient Admit Date: 01/08/2023 Staff Ordering Physician: Oral Silva MD Room Service Server: Angle Zamarripa RDCS Attending Provider: Jose Goldstein DO Referring Physician: Ricardo QURESHI; Exam Type: CA echo limited w bubble study Study Info Indications - R/O ASD, PFO Contrast/Agitated Saline Contrast/Ag. Saline: Agitated Saline Amount: 20.00 ml Existing IV Access: Yes IV Access Condition: patent with no signs of infiltration Summary 1. Limited echocardiogram to assess atrial septum. 2. Intact interatrial septum visualized by 2D, color flow and agitated saline imaging. 3. Agitated saline injection with and without valsalva maneuver opacified right side cardiac chambers without shunt to left side cardiac chambers. Atrial Septum Limited echocardiogram to assess atrial septum. Agitated saline injection with and without valsalva maneuver opacified right side cardiac chambers without shunt to left side cardiac chambers. Intact interatrial septum visualized by 2D, color flow and agitated saline imaging. Report Signatures
[2023-01-14] MEDS: LEVALBUTEROL NEB 1.25 MG/3 ML INHALATION ×4 (01:51→20:30)
[2023-01-14 05:24] LABS: Eosinophils Percent Auto 0.1 % (0-4.4); Hematocrit 53.2 % (37.0-47.0); Hemoglobin 16.2 g/dL (12.0-15.0); Immature Granulocyte Absolute 0.04 K/mm3 (0.00-0.031); Immature Granulocyte Percent A 0.4 % (0-0.5); Immature Platelet Fraction Pct 3.8 % (0.9-11.2); Lymphocytes Absolute Auto 0.49 K/mm3 (0.9-3.2); Mean Corpuscular HGB Conc 30.5 g/dl (32-36); Mean Corpuscular Hemoglobin 30.3 pg (26-34); Mean Corpuscular Volume 99.4 fl (80-100); Mean Platelet Volume 12.1 fl (7.4-10.4); Monocytes Absolute Auto 0.4 K/mm3 (0.1-0.6); Monocytes Percent Auto 4.1 % (2.6-8.5); Neutrophils Absolute Auto 8.8 K/mm3 (1.3-6.7); Neutrophils Percent Auto 90.4 % (45.5-73.1); Platelet Count Result 155 k/mm3 (150-375); Red Blood Count 5.35 M/mm3 (4.2-5.4); Red Cell Distribution Width 17.7 % (11.5-14.5); White Blood Count 9.7 K/mm3 (4.5-10.0)
[2023-01-14 06:02] LABS: Platelet Estimate Adequate (Adequate)
[2023-01-14 06:03] LABS: Anisocytosis 1+ (NORMAL); Burr Cells 1+ (NORMAL); Poikilocytosis 2+ (NORMAL); Schistocytes None Seen (NORMAL)
[2023-01-14 07:00] LABS: Anion Gap 4 mmol/L (8-16); Blood Urea Nitrogen 42 mg/dL (7-17); Calcium 8.7 mg/dL (8.4-10.2); Carbon Dioxide 39 mmol/L (22-30); Chloride 98 mmol/L (98-107); Estimated CRCL calculation 52 ml/min; Estimated Glomerular Filt Rate 48; Glucose 141 mg/dL (65-110); Potassium 3.9 mmol/L (3.4-5.0); Sodium 141 mmol/L (137-145)
[2023-01-14 07:39] LABS: NT Pro B Type Natriuretic Pept 22100 pg/mL (19.9-100)
--- NOTE | 2023-01-14 09:06 | PM.IMPN ---
Progress Note: A&P Assessment and Plan (1) CHF exacerbation: Code(s): I50.9 - Heart failure, unspecified Status: Acute (2) Elevated troponin: Code(s): R77.8 - Other specified abnormalities of plasma proteins Status: Acute Plan acute CHF preserved ejection fraction exacerbation -patient clinically fluid overloaded, chest x-ray consistent with edema, elevated BNP 23k -patient given IV Lasix in ED, continue diuresis 40 mg IV Lasix b.i.d. -placing Davis catheter for strict I&O -pending limited echo h/o preserved EF -continue fluid restriction and cardiac diet consult haul cane brakeman acute on chronic hypoxic and hypercarbic respiratory failure Patient is morbidly obese, BMI 62 Acute on chronic respiratory failure with hypercapnia and hypoxemia Likely resulting from fluid overload and obesity hypoventilation syndrome, and large pleural effusion Patient is on IV Lasix, and start acetazolamide 500 mg IV to decrease his bicarbonate retention per senior manufacturing technician Repeat chest x-ray today, still has patchy infiltrate in right lungs, possible aspiration pneumonia or pneumonitis Start doxy and ceftriaxone IV Consult senior manufacturing technician evaluation and treatment, patient senior manufacturing technician consultation Shortness of breath is improving, but has still has significant dyspnea with mild exertion CT shows no PE Pleural effusion CT scan shows moderate to large right pleural effusion with complete right lower lobe atelectasis Lokie Engineer has scheduled thoracentesis tomorrow Analysis of pleural fluid per senior manufacturing technician orders elevated troponin -likely secondary to CHF exacerbation -no active chest pain, ACS ruled out, will trend troponins, EKG showed AFib Consult haul cane brakeman CKD stage 3 Elevated BUN creatinine close to baseline bicarbonate retention is improving COPD exacerbation -COPD on 2L HOT: Now patient is on BiPAP and ABG shows worsening CO2 retention adult patient is on diuretic medication Patchy infiltrate in right lung Start antibiotics see above Start DuoNeb scheduled albuterol nebulizer p.r.n. Start methylprednisolone iv Follow-up CBC CMP, procalcitonin Consult senior manufacturing technician for evaluation treatment -Barretts esophagus, GERD: protonix -gout: allopurinol -chronic atrial fibrillation: AC with eliquis, rate control diltiazem -HLD: statin -TR: ferrous sulfate -neuropathy: gabapentin -morbid obesity, wheelchair bound: poor exercise effort -h/o breast cancer: on letrozole Patient needs nppv with AVAPS at discharge Diet: Cardiac with fluid restriction 1500 cc DVT prophylaxis: Eliquis Code status: Full code Disposition: Likely home in 2-3 days Subjective Date/time seen: 01/14/23 09:06 Interval history: I saw exam patient today. Patient has no obvious distress in bed. Patient has cough and short of breath with exertion. Patient denies chest pain abdomen pain, nausea vomiting diarrhea. Patient afebrile, leukocytosis is trending down Exam Narrative: - GENERAL: Pleasant morbidly obese mild respiratory distress. - EYES: EOMI. Anicteric. - HENT: Moist mucous membranes. - LUNGS: Course lungs worse on expiration, tachypneic, dullness to percussion at the right base - CARDIOVASCULAR: Regular rate and rhythm. - ABDOMEN: Soft, non-tender and non-distended. - EXTREMITIES: 2+pitting edema throughout - NEUROLOGIC: No focal neurological deficits. CN II-XII grossly intact. - PSYCHIATRIC: Awake, Alert and oriented x 3. Appropriate mood and affect. - SKIN: No rashes or lesions. Warm. Objective Data Vital Signs Vital Signs: Vital Signs - 24 hr 01/13/23 10:00 01/13/23 12:00 01/13/23 12:00 Temperature 98.3 F Pulse Rate 65 62 Respiratory Rate 16 Blood Pressure 132/59 L Pulse Oximetry 90 95 Oxygen Delivery High Flow Therapy with Na Oxygen Flow Rate 35 Fraction of Inspired Oxygen 30 01/13/23 13:52 01/13/23 14:00 01/13/23 12:00 Temperature Pulse Rate 64 63 72 Re
[2023-01-14] MEDS: BUMETANIDE INJ 1 MG/4 ML VIAL IV PUSH ×2 (09:47→17:36)
[2023-01-14] MEDS: GABAPENTIN 300 MG CAPSULE 600 MG PO (09:47)
[2023-01-14] MEDS: guaiFENesin 12 HR 600 MG TABCR 1200 MG PO ×2 (09:47→20:31)
[2023-01-14] MEDS: PANTOPRAZOLE 40 MG TABLET PO (09:47)
[2023-01-14] MEDS: EMPAGLIFLOZIN 10 MG TABLET PO (09:47)
[2023-01-14] MEDS: LETROZOLE (*CHEMO) 2.5 MG TABLET PO (09:47)
[2023-01-14] MEDS: allopurinoL 100 MG TABLET 200 MG PO (09:47)
[2023-01-14] MEDS: FERROUS SULFATE 325 MG TABLET DR PO ×2 (09:47→17:36)
[2023-01-14] MEDS: predniSONE 20 MG TABLET 40 MG PO (09:47)
[2023-01-14] MEDS: calcitrioL 0.25 MCG CAPSULE PO (09:47)
[2023-01-14] MEDS: DOXYCYCLINE 100 MG/NS 100 ML 100 MG/100 ML BAG IVPB ×2 (09:47→20:31)
--- NOTE | 2023-01-14 09:56 | PM.PNPUL ---
Progress Note: A&P Assessment and Plan (1) COPD (chronic obstructive pulmonary disease): Code(s): J44.9 - Chronic obstructive pulmonary disease, unspecified Status: Acute Assessment and Plan: Hx of COPD, 52 PY quit 1989, PFT 09/05/2020 = FEV10.79 L, 44%, FVC 1.39 L, 59%, FEV1/FVC=57%; 15% increase with FVC > than 200 ml, chronic hypoxemic respiratory failure on 2 L oxygen at rest and with ambulation. Chronic hypercarbic respiratory failure with blood gas on 12/20/2019 7.47/59/109 on 2 L nasal cannula and on 01/08/2023 7.35/62/70 on 6 L nasal cannula, polycythemia with a hemoglobin of 17.1 on 05/22/2021, echocardiogram 01/09/2023 with moderately enlarged right ventricle with moderately reduced right ventricular systolic function, normal LV function with abnormal diastolic dysfunction and moderate tricuspid regurgitation with a PASP of 96. Maintained on Trelegy 100 one puff a day, albuterol inhaler TID. Does not have daily sputum, does not have recurrent infections. She does not sit upright to eat. She reclines with eating leading to chronic aspiration. Patient has chronic hypercarbic respiratory failure from COPD. Patient would benefit from a noninvasive ventilator to prevent progression and to avoid subsequent hospitalizations. Patient could not tolerate the BiPAP pressures and BiPAP did not correct her hypercarbia. Recommend noninvasive ventilation with the AVAPS AE mode. 01/13 the patient has no wheezes on exam today. I will change her Solu-Medrol to prednisone 40 mg p.o. q.day 1st dose on 01/14/2023 (steroids started 01/11/23). I will place the patient on levalbuterol nebulizers Q 6 as history of AFIB and she is off ipratropium as a history of glaucoma. I will discontinue trelegy today. I will order a CT angiogram of the chest to assess for PE, consolidations, effusions, and interstitial lung disease. CT angiogram of the chest later in the day showed no pulmonary embolism, moderate to large right pleural effusion with collapse of the right lower lobe, mild apical predominant centrilobular emphysema. 01/14 patient tells me she feels about the same. Her dry cough persists without any phlegm production and no hemoptysis. No wheezing on exam. Plan: Continue prednisone 40 q.day, to the for day 4 of steroids. Continue levalbuterol nebulizer 1.25 mg q.6 hours. She has no pulmonary embolism, no interstitial lung disease but does have mild apical predominant centrilobular emphysema and a moderate to large right pleural effusion. I recommended right thoracentesis and described the risks and benefits to the patient in she is in agreement to proceed. I have DC the Eliquis after this morning's dose and ordered a right thoracentesis for 01/15/2023 with full chemistries, microbiology for bacterial, fungal, AFB, cell count and cytology. Discussed with Dr. Benitez. Will follow with you. (2) Acute on chronic respiratory failure with hypoxia and hypercapnia: Code(s): J96.21 - Acute and chronic respiratory failure with hypoxia; J96.22 - Acute and chronic respiratory failure with hypercapnia Status: Acute Assessment and Plan: 01/12/23: She has been on O2 for more than year at home, uses 2 L/min in the day, may leave it off at night; she has severe secondary pulmonary hypertension due to chronic hypoxemia and untreated ROSALIE as well as left heart disease;? had a home sleep test, was placed on treatment, probably APAP, did not tolerate it well. Said that she could not have a sleep study in a sleep lab due to her wheelchair need, non-ambulatory status, dependence on a [id number] device to help with getting from wheelchair to bed, and due to using diapers. She is not incontinent; just has difficulty getting to toilet, so uses diapers for urination, not defecation. She may be able to qualify for a non-invasive positive pressure device such as Astral or Trilogy to assist with managing hypercapnia.? She says that she had a home sleep test again a few we
[2023-01-14] MEDS: cefTRIAXone 2 GM/NS 100 ML 2 GM/100 ML BAG IVPB (09:59)
[2023-01-14] MEDS: acetaZOLAMIDE TAB 250 MG TABLET 500 MG PO (09:59)
[2023-01-14] MEDS: APIXABAN 5 MG TABLET PO (09:59)
--- NOTE | 2023-01-14 12:05 | PM.PNCARD ---
Progress Note: A&P Assessment and Plan (1) CHF exacerbation: Code(s): I50.9 - Heart failure, unspecified Status: Acute Assessment and Plan: Presents with shortness of breath and has evidence of CHF on chest Xray.? She has received IV furosemide and is improving. Continue diuresis with bumex 1mg IV b.i.d. Strict I&O 1500cc fluid restriction daily weights daily BMP while diuresing Wean O2 as tolerated Echo shows hyperdynamic LVSF, diastolic dysfunction, severe PORFIRIO, moderate TR, and severe pHTN with a PASP 96mmHg Continue jardiance. Can add spironolactone as well. Moderate - large pleural effusion noted on chest CT yesterday. Check CXR tomorrow to assess for improvement. Subjective Date/time seen: 01/14/23 12:05 Interval history: Cardiology follow up for CHF, Afib Feeling better this morning. Less short of breath. Had some tingling/pain in her legs last night but otherwise is without complaint. Date of service 01/11/2023: Patient was seen last night by the pilot manager because of very low oxygen saturations would which occur when she was off of her BiPAP. She did not have any obvious change in her hemodynamic status. Chest x-ray still shows some pulmonary congestion but not really any better or worse than the prior film. She is awake and alert on BiPAP this morning. Her only complaint is that she has not been given breakfast. Date of service 01/12/2023: Patient moved IMU yesterday for more close monitoring of her oxygenation. Pulmonology consult performed yesterday noted and appreciated. She does not feel appreciably be any different than yesterday. As mentioned in my note yesterday transitioned to IV Bumex to try to prompt a more brisk diuresis. Very difficult to assess this clinically given her morbid obesity/body habitus Date of service 01/14/2023: Feeling about the same today, thinks her breathing may be slightly improved but no significant changes since yesterday. Review of Systems Review of Systems: All systems reviewed & are unremarkable except as noted in HPI and below Exam Const: General: comfortable, no acute distress, alert and awake Orientation/consciousness: patient oriented x3 Other: Morbidly obese HENMT: Head: normal to inspection Eyes: General: appearance normal, both eyes and all related structures Pupils: Equal, round and reactive pupils present Neck: Neck: normal visual inspection and supple Carotids: normal carotid upstroke Other: Unable to assess JVD due to body habitus Resp: Effort & Inspection: normal respiratory effort Auscultation: not clear to auscultation bilaterally and rales Cardio: Rate: regular rate Rhythm: abnormal rhythm irregularly irregular Heart sounds: S1 normal heart sound present, S2 normal heart sound present and Murmur heart sound present systolic GI: Auscultation: normal bowel sounds Skin: General skin exam: normal color Neuro: General: patient oriented x3 Cranial nerves: Yes Equal, round and reactive pupils present Extrem: General: abnormal to inspection and edema (mild bilateral lower extremity edema ) Psych: Appearance: grossly normal Mental Status: mental status grossly normal Objective Data Vital Signs Vital Signs: Vital Signs - 24 hr 01/13/23 13:52 01/13/23 14:00 01/13/23 14:00 Temperature Pulse Rate 64 63 63 Respiratory Rate 20 20 Blood Pressure Pulse Oximetry Oxygen Delivery Oxygen Flow Rate Fraction of Inspired Oxygen 01/13/23 16:00 01/13/23 16:00 01/13/23 18:00 Temperature 36.4 C L Pulse Rate 58 L 57 L 63 Respiratory Rate 16 Blood Pressure 123/66 Pulse Oximetry 93 Oxygen Delivery Oxygen Flow Rate Fraction of Inspired Oxygen 01/13/23 16:00 01/13/23 19:58 01/13/23 19:59 Temperature Pulse Rate 58 L 58 L Respiratory Rate 20 20 Blood Pressure Pulse Oximetry 94 98 Oxygen Delivery High Flow Therapy with Na High Flow Therapy with Na O
--- NOTE | 2023-01-14 12:41 | PCPTNOTE ---
Spoke with RN on how to safely assist the pt up to a chair. PT orders not indicated due to pt remaining at baseline.
--- NOTE | 2023-01-14 15:27 | PCSTNOTE ---
Please refer to the Bedside Swallow Evaluation in the EMR. Please note, silent aspiration cannot be ruled out at bedside.
--- NOTE | 2023-01-14 16:12 | PCRCNOTE ---
PT TRILOGY ORDER, DOCTOR NOTES, FACESHEET HAS BEEN FAXED TO [facility]. CONTACT SHAN IF ANY QUESTIONS, . AWAITING APPROVAL, PT HAS [facility] MEDICARE, THIS MAY TAKE SOME TIME. TRILOGY ORDER HAS BEEN SCANNED INTO EMR.
[2023-01-14] MEDS: GABAPENTIN 400 MG CAPSULE 1200 MG PO (20:30)
[2023-01-14] MEDS: rOPINIRole HCL 0.5 MG TABLET PO (20:31)
[2023-01-14] MEDS: dilTIAZem HCL CD 180 MG CAP.24HR PO (20:31)
[2023-01-14] MEDS: LATANOPROST 0.005% OP SOLN 2.5 ML BTL 1 DROP EACH EYE (20:31)
[2023-01-14] MEDS: ATORVASTATIN 10 MG TABLET PO (20:31)
[2023-01-14] MEDS: HYDROcodone/acetaminophen (*CRX) 5-325 MG TABLET 1 TAB PO (20:54)
[2023-01-15] VITALS (26 sets, daily range): BP systolic 144–150; BP diastolic 71–91; PULSE 49–66; RESP 16–20; TEMP 36.4–36.6; O2SAT 90–100
[2023-01-15] MEDS: LEVALBUTEROL NEB 1.25 MG/3 ML INHALATION ×4 (02:10→20:21)
[2023-01-15 07:17] LABS: Basophils Percent Auto 0.1 % (0.2-1.2); Eosinophils Percent Auto 0.2 % (0-4.4); Hematocrit 53.1 % (37.0-47.0); Immature Granulocyte Absolute 0.05 K/mm3 (0.00-0.031); Immature Granulocyte Percent A 0.5 % (0-0.5); Lymphocytes Absolute Auto 0.66 K/mm3 (0.9-3.2); Lymphocytes Percent Auto 6.6 % (18.3-44.2); Mean Corpuscular HGB Conc 30.1 g/dl (32-36); Mean Corpuscular Hemoglobin 29.6 pg (26-34); Mean Corpuscular Volume 98.3 fl (80-100); Mean Platelet Volume 10.8 fl (7.4-10.4); Monocytes Absolute Auto 0.8 K/mm3 (0.1-0.6); Monocytes Percent Auto 7.8 % (2.6-8.5); Neutrophils Absolute Auto 8.5 K/mm3 (1.3-6.7); Neutrophils Percent Auto 84.8 % (45.5-73.1); Platelet Count Result 172 k/mm3 (150-375); Red Cell Distribution Width 16.9 % (11.5-14.5); White Blood Count 10.1 K/mm3 (4.5-10.0)
[2023-01-15 07:30] LABS: Blood Urea Nitrogen 40 mg/dL (7-17); Calcium 8.5 mg/dL (8.4-10.2); Carbon Dioxide > 40 mmol/L (22-30); Chloride 98 mmol/L (98-107); Estimated CRCL calculation 57 ml/min; Estimated Glomerular Filt Rate 54; Glucose 128 mg/dL (65-110); Lactate Dehydrogenase 250 U/L (120-246); Potassium 3.1 mmol/L (3.4-5.0); Sodium 142 mmol/L (137-145)
[2023-01-15 07:32] LABS: INR 1.2; Prothrombin Time 15.6 Seconds (11.1-14.7)
[2023-01-15 07:33] LABS: Partial Thromboplastin Time 29.1 SECONDS (22.3-36.8)
--- NOTE | 2023-01-15 07:56 | PM.PNPUL ---
Progress Note: A&P Assessment and Plan (1) COPD (chronic obstructive pulmonary disease): Code(s): J44.9 - Chronic obstructive pulmonary disease, unspecified Status: Acute Assessment and Plan: Hx of COPD, 52 PY quit 1989, PFT 09/05/2020 = FEV10.79 L, 44%, FVC 1.39 L, 59%, FEV1/FVC=57%; 15% increase with FVC > than 200 ml, chronic hypoxemic respiratory failure on 2 L oxygen at rest and with ambulation. Chronic hypercarbic respiratory failure with blood gas on 12/20/2019 7.47/59/109 on 2 L nasal cannula and on 01/08/2023 7.35/62/70 on 6 L nasal cannula, polycythemia with a hemoglobin of 17.1 on 05/22/2021, echocardiogram 01/09/2023 with moderately enlarged right ventricle with moderately reduced right ventricular systolic function, normal LV function with abnormal diastolic dysfunction and moderate tricuspid regurgitation with a PASP of 96. Maintained on Trelegy 100 one puff a day, albuterol inhaler TID. Does not have daily sputum, does not have recurrent infections. She does not sit upright to eat. She reclines with eating leading to chronic aspiration. Patient has chronic hypercarbic respiratory failure from COPD. Patient would benefit from a noninvasive ventilator to prevent progression and to avoid subsequent hospitalizations. Patient could not tolerate the BiPAP pressures and BiPAP did not correct her hypercarbia. Recommend noninvasive ventilation with the AVAPS AE mode. 01/13 the patient has no wheezes on exam today. I will change her Solu-Medrol to prednisone 40 mg p.o. q.day 1st dose on 01/14/2023 (steroids started 01/11/23). I will place the patient on levalbuterol nebulizers Q 6 as history of AFIB and she is off ipratropium as a history of glaucoma. I will discontinue trelegy today. I will order a CT angiogram of the chest to assess for PE, consolidations, effusions, and interstitial lung disease. CT angiogram of the chest later in the day showed no pulmonary embolism, moderate to large right pleural effusion with collapse of the right lower lobe, mild apical predominant centrilobular emphysema. 01/14 patient tells me she feels about the same. Her dry cough persists without any phlegm production and no hemoptysis. No wheezing on exam. Plan: Continue prednisone 40 q.day, to the for day 4 of steroids. Continue levalbuterol nebulizer 1.25 mg q.6 hours. She has no pulmonary embolism, no interstitial lung disease but does have mild apical predominant centrilobular emphysema and a moderate to large right pleural effusion. I recommended right thoracentesis and described the risks and benefits to the patient in she is in agreement to proceed. I have DC the Eliquis after this morning's dose and ordered a right thoracentesis for 01/15/2023 with full chemistries, microbiology for bacterial, fungal, AFB, cell count and cytology. 01/15 patient tells me she continues to improve. She is 80% back to her normal. The cough persists but is better. She has no phlegm no hemoptysis. No wheezes on exam Plan: Will discontinue prednisone 40 q.day after today's dose which will be day 5. Continue levalbuterol nebulizer 1.25 mg q.6 hours. Continue guaifenesin 1200 mg p.o. b.i.d. Holding muscarinic antagonists as she is on latanoprost for presumed glaucoma. Wean FiO2 to maintain sats 90-94%. Patient to have right thoracentesis later today. Will follow with you. (2) Acute on chronic respiratory failure with hypoxia and hypercapnia: Code(s): J96.21 - Acute and chronic respiratory failure with hypoxia; J96.22 - Acute and chronic respiratory failure with hypercapnia Status: Acute Assessment and Plan: 01/12/23: She has been on O2 for more than year at home, uses 2 L/min in the day, may leave it off at night; she has severe secondary pulmonary hypertension due to chronic hypoxemia and untreated ROSALIE as well as left heart disease;? had a home sleep test, was placed on treatment, probably APAP, did not tolerate it well. Said that she could not hav
[2023-01-15] MEDS: BUMETANIDE INJ 1 MG/4 ML VIAL IV PUSH ×2 (09:12→17:17)
[2023-01-15] MEDS: DOXYCYCLINE 100 MG/NS 100 ML 100 MG/100 ML BAG IVPB ×2 (09:13→21:02)
[2023-01-15] MEDS: cefTRIAXone 2 GM/NS 100 ML 2 GM/100 ML BAG IVPB (09:14)
[2023-01-15] MEDS: FLUTICASONE PROPIONATE 0.05% NA SPR 16 GM BTL (*BKC) 2 SPRAY NASAL (09:14)
--- NOTE | 2023-01-15 09:24 | PCNWS ---
Weekly nutritional screen. Patient is tolerating current Heart Healthy diet with adequate intake, 75-100%. 1500 ml/day fluid restriction. No weight loss reported. No nutritional needs at this time.
--- NOTE | 2023-01-15 11:58 | PM.IMPN ---
Progress Note: A&P Assessment and Plan (1) CHF exacerbation: Code(s): I50.9 - Heart failure, unspecified Status: Acute (2) Elevated troponin: Code(s): R77.8 - Other specified abnormalities of plasma proteins Status: Acute Plan acute CHF preserved ejection fraction exacerbation -patient clinically fluid overloaded, chest x-ray consistent with edema, elevated BNP 23k -patient given IV Lasix in ED, continue diuresis 40 mg IV Lasix b.i.d. -placing Davis catheter for strict I&O -pending limited echo h/o preserved EF -continue fluid restriction and cardiac diet consult certified anesthesiologist assistant acute on chronic hypoxic and hypercarbic respiratory failure Patient is morbidly obese, BMI 62 Acute on chronic respiratory failure with hypercapnia and hypoxemia Likely resulting from fluid overload and obesity hypoventilation syndrome, and large pleural effusion Patient is on IV Lasix, and start acetazolamide 500 mg IV to decrease his bicarbonate retention per product test engineer Repeat chest x-ray today, still has patchy infiltrate in right lungs, possible aspiration pneumonia or pneumonitis Start doxy and ceftriaxone IV Consult product test engineer evaluation and treatment, patient product test engineer consultation Shortness of breath is improving, but has still has significant dyspnea with mild exertion CT shows no PE Pleural effusion CT scan shows moderate to large right pleural effusion with complete right lower lobe atelectasis Brim Molder has scheduled thoracentesis tomorrow Analysis of pleural fluid per product test engineer orders elevated troponin -likely secondary to CHF exacerbation -no active chest pain, ACS ruled out, will trend troponins, EKG showed AFib Consult certified anesthesiologist assistant CKD stage 3 Elevated BUN creatinine close to baseline bicarbonate retention is improving COPD exacerbation -COPD on 2L HOT: Now patient is on BiPAP and ABG shows worsening CO2 retention adult patient is on diuretic medication Patchy infiltrate in right lung Start antibiotics see above Start DuoNeb scheduled albuterol nebulizer p.r.n. Start methylprednisolone iv Follow-up CBC CMP, procalcitonin Consult product test engineer for evaluation treatment -Barretts esophagus, GERD: protonix -gout: allopurinol -chronic atrial fibrillation: AC with eliquis, rate control diltiazem -HLD: statin -TR: ferrous sulfate -neuropathy: gabapentin -morbid obesity, wheelchair bound: poor exercise effort -h/o breast cancer: on letrozole Patient needs nppv with AVAPS at discharge Diet: Cardiac with fluid restriction 1500 cc DVT prophylaxis: Eliquis Code status: Full code Disposition: Likely home in 2-3 days Subjective Date/time seen: 01/15/23 11:58 Interval history: No complaints Tolerated noninvasive ventilator. Currently on 3L oxygen which is her baseline. No new issues Exam Narrative: - GENERAL: Pleasant morbidly obese mild respiratory distress. - EYES: EOMI. Anicteric. - HENT: Moist mucous membranes. - LUNGS: Course lungs worse on expiration, tachypneic, dullness to percussion at the right base - CARDIOVASCULAR: Regular rate and rhythm. - ABDOMEN: Soft, non-tender and non-distended. - EXTREMITIES: 2+pitting edema throughout - NEUROLOGIC: No focal neurological deficits. CN II-XII grossly intact. - PSYCHIATRIC: Awake, Alert and oriented x 3. Appropriate mood and affect. - SKIN: No rashes or lesions. Warm. Objective Data Vital Signs Vital Signs: Vital Signs - 24 hr 01/14/23 12:00 01/14/23 12:00 01/14/23 13:25 Temperature Pulse Rate 74 69 Respiratory Rate 18 Blood Pressure Pulse Oximetry 99 Oxygen Delivery High Flow Therapy with Na Oxygen Flow Rate 7 Fraction of Inspired Oxygen 01/14/23 13:42 01/14/23 14:00 01/14/23 16:00 Temperature Pulse Rate 62 65 61 Respiratory Rate 18 Blood Pressure Pulse Oximetry Oxygen Delivery Oxygen Flow Rate Fraction of Inspired Oxygen 01/14/23
--- NOTE | 2023-01-15 12:02 | PM.PNCARD ---
Progress Note: A&P Assessment and Plan (1) CHF exacerbation: Code(s): I50.9 - Heart failure, unspecified Status: Acute Assessment and Plan: Continue diuresis with bumex 1mg IV b.i.d. Strict I&O 1500cc fluid restriction daily weights daily BMP while diuresing Wean O2 as tolerated Echo shows hyperdynamic LVSF, diastolic dysfunction, severe PORFIRIO, moderate TR, and severe pHTN with a PASP 96mmHg Continue jardiance. Continue Spironolactone. Thoracentesis planned for today. Subjective Date/time seen: 01/15/23 12:02 Interval history: Cardiology follow up for CHF, Afib Date of service 01/11/2023: Patient was seen last night by the marine water tender because of very low oxygen saturations would which occur when she was off of her BiPAP. She did not have any obvious change in her hemodynamic status. Chest x-ray still shows some pulmonary congestion but not really any better or worse than the prior film. She is awake and alert on BiPAP this morning. Her only complaint is that she has not been given breakfast. Date of service 01/12/2023: Patient moved IMU yesterday for more close monitoring of her oxygenation. Pulmonology consult performed yesterday noted and appreciated. She does not feel appreciably be any different than yesterday. As mentioned in my note yesterday transitioned to IV Bumex to try to prompt a more brisk diuresis. Very difficult to assess this clinically given her morbid obesity/body habitus Date of service 01/14/2023: Feeling about the same today, thinks her breathing may be slightly improved but no significant changes since yesterday. Date of service 01/15/2023: Feeling better compared to yesterday. Getting thoracentesis today. Review of Systems Review of Systems: No chest pain. No palpitations. Improving shortness of breath. Exam Const: General: comfortable, no acute distress, alert and awake Orientation/consciousness: patient oriented x3 Other: Morbidly obese Eyes: General: appearance normal, both eyes and all related structures Neck: Other: Unable to assess JVD due to body habitus Resp: Effort & Inspection: normal respiratory effort Cardio: Rate: regular rate Rhythm: regular rhythm Skin: General skin exam: normal color Neuro: General: patient oriented x3 Speech: normal speech Extrem: General: edema (mild bilateral lower extremity edema ) Psych: Appearance: grossly normal Mental Status: mental status grossly normal Objective Data Vital Signs Vital Signs: Vital Signs - 24 hr 01/14/23 13:25 01/14/23 13:42 01/14/23 14:00 Temperature Pulse Rate 69 62 65 Respiratory Rate 18 18 Blood Pressure Pulse Oximetry Oxygen Delivery Oxygen Flow Rate Fraction of Inspired Oxygen 01/14/23 16:00 01/14/23 16:00 01/14/23 16:00 Temperature 36.2 C L Pulse Rate 61 66 Respiratory Rate 22 H Blood Pressure 148/76 H Pulse Oximetry 96 96 Oxygen Delivery High Flow Therapy with Na Oxygen Flow Rate 6 Fraction of Inspired Oxygen 01/14/23 17:59 01/14/23 20:00 01/14/23 20:30 Temperature 36.4 C Pulse Rate 61 63 63 Respiratory Rate 20 18 Blood Pressure 151/73 H Pulse Oximetry 96 Oxygen Delivery Oxygen Flow Rate Fraction of Inspired Oxygen 01/14/23 20:36 01/14/23 20:43 01/14/23 23:26 Temperature 36.6 C Pulse Rate 63 58 L 66 Respiratory Rate 18 18 Blood Pressure 147/73 H Pulse Oximetry 96 93 Oxygen Delivery High Flow Therapy with Na Oxygen Flow Rate 6 Fraction of Inspired Oxygen 01/14/23 20:00 01/15/23 00:00 01/14/23 20:00 Temperature Pulse Rate 63 Respiratory Rate Blood Pressure Pulse Oximetry 96 97 Oxygen Delivery High Flow Nasal Cannula BiPAP Oxygen Flow Rate 6 Fraction of Inspired Oxygen 40 01/15/23 00:00 01/14/23 22:00 01/15/23 02:00 Temperature Pulse Rate 55 L 62 50 L Respiratory Rate Blood Pressure Pulse Oximetry Oxygen De
[2023-01-15 14:43] LABS: pH Pleural Fluid > 7.500 (7.210-7.500)
[2023-01-15] MEDS: GABAPENTIN 300 MG CAPSULE 600 MG PO (14:57)
[2023-01-15] MEDS: POTASSIUM CHLORIDE 20 MEQ PACKET (FOR LIQUID) 40 MEQ PO (14:58)
[2023-01-15] MEDS: PANTOPRAZOLE 40 MG TABLET PO (14:59)
[2023-01-15] MEDS: EMPAGLIFLOZIN 10 MG TABLET PO (14:59)
[2023-01-15] MEDS: SPIRONOLACTONE 25 MG TABLET PO (14:59)
[2023-01-15] MEDS: calcitrioL 0.25 MCG CAPSULE PO (14:59)
[2023-01-15] MEDS: allopurinoL 100 MG TABLET 200 MG PO (15:01)
[2023-01-15] MEDS: predniSONE 20 MG TABLET 40 MG PO (15:01)
[2023-01-15] MEDS: guaiFENesin 12 HR 600 MG TABCR 1200 MG PO ×2 (15:02→21:05)
[2023-01-15] MEDS: LETROZOLE (*CHEMO) 2.5 MG TABLET PO (15:03)
[2023-01-15 16:01] LABS: Pleural fluid source Pleural fluid
[2023-01-15 16:02] LABS: Appearance Pleural Fluid Clear (Clear); Color Pleural Fluid Yellow (Colorless)
[2023-01-15 16:03] LABS: Lymphocytes Pleural Fluid 28 %; Macrophages Pleural Fluid 5 %; Monocytes Pleural Fluid 32 %; Neutrophils Pleural Fluid 35 % (0-25)
--- NOTE | 2023-01-15 16:24 | PC.NURSE ---
On 01/15/23, the student, [place] [facility], provided care and completed [facility] documentation on this patient. I have reviewed the student's documentation and agree with the findings.
[2023-01-15] MEDS: FERROUS SULFATE 325 MG TABLET DR PO (17:17)
[2023-01-15] MEDS: POTASSIUM CHLORIDE 20 MEQ ER TABLET PO (17:17)
--- NOTE | 2023-01-15 17:45 | PC.NURSE ---
Umu from [facility] transfer center called to get information on patient; did request we get a covid swab on patient; then stated we might not have a bed available for a couple of days and stated she told the doctor that as well
[2023-01-15 18:56] LABS: Influenza A QL RT-PCR Negative (Negative); Influenza B QL RT-PCR Negative (Negative); SARS-CoV-2 RNA PCR Negative (Negative)
[2023-01-15] MEDS: GABAPENTIN 400 MG CAPSULE 1200 MG PO (21:03)
[2023-01-15] MEDS: HYDROcodone/acetaminophen (*CRX) 5-325 MG TABLET 1 TAB PO (21:04)
[2023-01-15] MEDS: dilTIAZem HCL CD 180 MG CAP.24HR PO (21:04)
[2023-01-15] MEDS: rOPINIRole HCL 0.5 MG TABLET PO (21:04)
[2023-01-15] MEDS: ATORVASTATIN 10 MG TABLET PO (21:05)
[2023-01-15] MEDS: LATANOPROST 0.005% OP SOLN 2.5 ML BTL 1 DROP EACH EYE (21:06)
[2023-01-16] VITALS (27 sets, daily range): BP systolic 139–180; BP diastolic 66–98; PULSE 56–73; RESP 16–22; TEMP 35.5–36.6; O2SAT 90–98
[2023-01-16] MEDS: LEVALBUTEROL NEB 1.25 MG/3 ML INHALATION ×2 (02:19→08:21)
--- NOTE | 2023-01-16 06:00 | PCRCNOTE ---
Pt unable to produce sputum sample.
--- NOTE | 2023-01-16 08:15 | PM.PNPUL ---
Progress Note: A&P Assessment and Plan (1) COPD (chronic obstructive pulmonary disease): Code(s): J44.9 - Chronic obstructive pulmonary disease, unspecified Status: Acute Assessment and Plan: Hx of COPD, 52 PY quit 1989, PFT 09/05/2020 = FEV10.79 L, 44%, FVC 1.39 L, 59%, FEV1/FVC=57%; 15% increase with FVC > than 200 ml, chronic hypoxemic respiratory failure on 2 L oxygen at rest and with ambulation. Chronic hypercarbic respiratory failure with blood gas on 12/20/2019 7.47/59/109 on 2 L nasal cannula and on 01/08/2023 7.35/62/70 on 6 L nasal cannula, polycythemia with a hemoglobin of 17.1 on 05/22/2021, echocardiogram 01/09/2023 with moderately enlarged right ventricle with moderately reduced right ventricular systolic function, normal LV function with abnormal diastolic dysfunction and moderate tricuspid regurgitation with a PASP of 96. Maintained on Trelegy 100 one puff a day, albuterol inhaler TID. Does not have daily sputum, does not have recurrent infections. She does not sit upright to eat. She reclines with eating leading to chronic aspiration. Patient has chronic hypercarbic respiratory failure from COPD. Patient would benefit from a noninvasive ventilator to prevent progression and to avoid subsequent hospitalizations. Patient could not tolerate the BiPAP pressures and BiPAP did not correct her hypercarbia. Recommend noninvasive ventilation with the AVAPS AE mode. 01/13 the patient has no wheezes on exam today. I will change her Solu-Medrol to prednisone 40 mg p.o. q.day 1st dose on 01/14/2023 (steroids started 01/11/23). I will place the patient on levalbuterol nebulizers Q 6 as history of AFIB and she is off ipratropium as a history of glaucoma. I will discontinue trelegy today. I will order a CT angiogram of the chest to assess for PE, consolidations, effusions, and interstitial lung disease. CT angiogram of the chest later in the day showed no pulmonary embolism, moderate to large right pleural effusion with collapse of the right lower lobe, mild apical predominant centrilobular emphysema. 01/14 patient tells me she feels about the same. Her dry cough persists without any phlegm production and no hemoptysis. No wheezing on exam. Plan: Continue prednisone 40 q.day, to the for day 4 of steroids. Continue levalbuterol nebulizer 1.25 mg q.6 hours. She has no pulmonary embolism, no interstitial lung disease but does have mild apical predominant centrilobular emphysema and a moderate to large right pleural effusion. I recommended right thoracentesis and described the risks and benefits to the patient in she is in agreement to proceed. I have DC the Eliquis after this morning's dose and ordered a right thoracentesis for 01/15/2023 with full chemistries, microbiology for bacterial, fungal, AFB, cell count and cytology. 01/15 patient tells me she continues to improve. She is 80% back to her normal. The cough persists but is better. She has no phlegm no hemoptysis. No wheezes on exam Plan: Will discontinue prednisone 40 q.day after today's dose which will be day 5. Continue levalbuterol nebulizer 1.25 mg q.6 hours. Continue guaifenesin 1200 mg p.o. b.i.d. Holding muscarinic antagonists as she is on latanoprost for presumed glaucoma. Wean FiO2 to maintain sats 90-94%. Patient to have right thoracentesis later today. 01/16 patient continues to improve. States she is 80% back to normal. Minimal cough and no phlegm production. No wheezes on exam. Finished 5 days of prednisone yesterday. I asked the patient if she had glaucoma and she said she saw an eye doctor and they were concerned about her pressures and wanted her to start on eyedrops to prevent glaucoma. She could provide no further details. Plan: Pain since states her breathing is back at her baseline. At this time I will continue beta agonist only and will change her to albuterol nebulizer q.4 hours while awake. Continue guaifenesin. off systemic steroids for 1 day and doing
[2023-01-16] MEDS: DOXYCYCLINE 100 MG/NS 100 ML 100 MG/100 ML BAG IVPB ×2 (08:46→19:41)
[2023-01-16] MEDS: cefTRIAXone 2 GM/NS 100 ML 2 GM/100 ML BAG IVPB (08:46)
[2023-01-16] MEDS: allopurinoL 100 MG TABLET 200 MG PO (08:56)
[2023-01-16] MEDS: SPIRONOLACTONE 25 MG TABLET PO (08:56)
[2023-01-16] MEDS: EMPAGLIFLOZIN 10 MG TABLET PO (08:56)
[2023-01-16] MEDS: FERROUS SULFATE 325 MG TABLET DR PO ×2 (08:56→17:39)
[2023-01-16] MEDS: LETROZOLE (*CHEMO) 2.5 MG TABLET PO (08:56)
[2023-01-16] MEDS: PANTOPRAZOLE 40 MG TABLET PO (08:56)
[2023-01-16] MEDS: calcitrioL 0.25 MCG CAPSULE PO (08:56)
[2023-01-16] MEDS: GABAPENTIN 300 MG CAPSULE 600 MG PO (08:57)
[2023-01-16] MEDS: guaiFENesin 12 HR 600 MG TABCR 1200 MG PO ×2 (08:57→20:02)
[2023-01-16] MEDS: BUMETANIDE INJ 1 MG/4 ML VIAL IV PUSH ×2 (08:59→17:39)
--- NOTE | 2023-01-16 09:17 | PM.PNCARD ---
Progress Note: A&P Assessment and Plan (1) CHF exacerbation: Code(s): I50.9 - Heart failure, unspecified <BENEDICT Richards - Last Filed: 01/16/23 12:03> Status: Acute <BENEDICT Richards - Last Filed: 01/16/23 12:03> Assessment and Plan: Continue diuresis with bumex 1mg IV b.i.d. for now Strict I&O 1500cc fluid restriction daily weights daily BMP while diuresing Wean O2 as tolerated Echo shows hyperdynamic LVSF, diastolic dysfunction, severe PORFIRIO, moderate TR, and severe pHTN with a PASP 96mmHg Continue jardiance. Continue Spironolactone. <BENEDICT Richards - Last Filed: 01/16/23 12:03> Assessment and Plan: Awaiting transfer to [facility] for possible VATS <BENEDICT Richards - Last Filed: 01/16/23 12:03> Awaiting transfer to [facility] for possible VATS Attending addendum: I agree with the above documentation and plan of care as outlined. <Ricardo Proctor MD - Last Filed: 01/16/23 13:00> Subjective Date/time seen: 01/16/23 09:17 <BENEDICT Richards - Last Filed: 01/16/23 12:03> Interval history: Cardiology follow up for CHF, Afib Date of service 01/11/2023: Patient was seen last night by the signal processing engineer because of very low oxygen saturations would which occur when she was off of her BiPAP. She did not have any obvious change in her hemodynamic status. Chest x-ray still shows some pulmonary congestion but not really any better or worse than the prior film. She is awake and alert on BiPAP this morning. Her only complaint is that she has not been given breakfast. Date of service 01/12/2023: Patient moved IMU yesterday for more close monitoring of her oxygenation. Pulmonology consult performed yesterday noted and appreciated. She does not feel appreciably be any different than yesterday. As mentioned in my note yesterday transitioned to IV Bumex to try to prompt a more brisk diuresis. Very difficult to assess this clinically given her morbid obesity/body habitus Date of service 01/14/2023: Feeling about the same today, thinks her breathing may be slightly improved but no significant changes since yesterday. Date of service 01/15/2023: Feeling better compared to yesterday. Getting thoracentesis today. Date of service 01/16/2023: Feeling better today s/p thoracentesis yesterday with 800mL fluid removed. <BENEDICT Richards Last Filed: 01/16/23 12:03> Review of Systems Review of Systems: No chest pain. No palpitations. Improving shortness of breath. <BENEDICT Richards - Last Filed: 01/16/23 12:03> All systems reviewed & are unremarkable except as noted in HPI and below <BENEDICT Richards - Last Filed: 01/16/23 12:03> Exam Const: General: comfortable, no acute distress, alert and awake <BENEDICT Richards - Last Filed: 01/16/23 12:03> Orientation/consciousness: patient oriented x3 <BENEDICT Richards - Last Filed: 01/16/23 12:03> Other: Morbidly obese <BENEDICT Richards - Last Filed: 01/16/23 12:03> HENMT: Head: normal to inspection <BENEDICT Richards - Last Filed: 01/16/23 12:03> Eyes: General: appearance normal, both eyes and all related structures <BENEDICT Richards - Last Filed: 01/16/23 12:03> Pupils: Equal, round and reactive pupils present <BENEDICT Richards - Last Filed: 01/16/23 12:03> Neck: Neck: normal visual inspection and supple <BENEDICT Richards - Last Filed: 01/16/23 12:03> Carotids: normal carotid upstroke <BENEDICT Richards - Last Filed: 01/16/23 12:03> Other: Unable to assess JVD due to body habitus <BENEDICT Richards - Last Filed: 01/16/23 12:03> Resp: Effort & Inspection: normal respiratory effort <BENEDICT Richards - Last Filed: 01/16/23 12:03> Auscultation: not clear to auscultation bilaterally and rales <BENEDICT Richards - Last Filed: 01/16/23 12:03> Cardio: Rate: regular rate <BENEDICT Richards - Last Filed: 01/16/23 12
[2023-01-16 10:46] LABS: Anion Gap 6 mmol/L (8-16); Blood Urea Nitrogen 42 mg/dL (7-17); Calcium 8.4 mg/dL (8.4-10.2); Carbon Dioxide 31 mmol/L (22-30); Chloride 104 mmol/L (98-107); Estimated CRCL calculation 57 ml/min; Estimated Glomerular Filt Rate 54; Glucose 158 mg/dL (65-110); Potassium 4.8 mmol/L (3.4-5.0); Sodium 141 mmol/L (137-145)
--- NOTE | 2023-01-16 11:35 | PM.IMPN ---
Progress Note: A&P Assessment and Plan (1) CHF exacerbation: Code(s): I50.9 - Heart failure, unspecified Status: Acute (2) Elevated troponin: Code(s): R77.8 - Other specified abnormalities of plasma proteins Status: Acute Plan acute CHF preserved ejection fraction exacerbation -thoracentesis yesterday. Originally thought g stain was positive for Gram-negative cocci. This was an artifact and over-read. Lab called me today and Gram stain is negative. Will continue antibiotics for now. acute on chronic hypoxic and hypercarbic respiratory failure Patient is morbidly obese, BMI 62 Acute on chronic respiratory failure with hypercapnia and hypoxemia Likely resulting from fluid overload and obesity hypoventilation syndrome, and large pleural effusion Patient is on IV Lasix, and start acetazolamide 500 mg IV to decrease his bicarbonate retention per paper cone machine operator Repeat chest x-ray today, still has patchy infiltrate in right lungs, possible aspiration pneumonia or pneumonitis Continue doxy and ceftriaxone IV Shortness of breath is improving, but has still has significant dyspnea with mild exertion CT shows no PE Pleural effusion Initial Gram stain was read as positive for Gram-negative cocci. Correction was made today, no organism seen. Continue antibiotics for now. Appreciate Pulmonary input elevated troponin -likely secondary to CHF exacerbation -no active chest pain, ACS ruled out, will trend troponins, EKG showed AFib Consult hardware engineering manager CKD stage 3 Elevated BUN creatinine close to baseline bicarbonate retention is improving COPD exacerbation -COPD on 2L HOT: Now patient is on BiPAP and ABG shows worsening CO2 retention adult patient is on diuretic medication Patchy infiltrate in right lung Start antibiotics see above Start DuoNeb scheduled albuterol nebulizer p.r.n. Start methylprednisolone iv Follow-up CBC CMP, procalcitonin Consult paper cone machine operator for evaluation treatment -Barretts esophagus, GERD: protonix -gout: allopurinol -chronic atrial fibrillation: AC with eliquis, rate control diltiazem -HLD: statin -TR: ferrous sulfate -neuropathy: gabapentin -morbid obesity, wheelchair bound: poor exercise effort -h/o breast cancer: on letrozole Patient needs nppv with AVAPS at discharge Subjective Date/time seen: 01/16/23 11:35 Interval history: No complaints Correction to prior g stain of pleural fluid. Called by lab. Confirmed with lab. G stain negative Exam Narrative: - GENERAL: Pleasant morbidly obese mild respiratory distress. - EYES: EOMI. Anicteric. - HENT: Moist mucous membranes. - LUNGS: Course lungs worse on expiration, tachypneic, dullness to percussion at the right base - CARDIOVASCULAR: Regular rate and rhythm. - ABDOMEN: Soft, non-tender and non-distended. - EXTREMITIES: 2+pitting edema throughout - NEUROLOGIC: No focal neurological deficits. CN II-XII grossly intact. - PSYCHIATRIC: Awake, Alert and oriented x 3. Appropriate mood and affect. - SKIN: No rashes or lesions. Warm. Objective Data Vital Signs Vital Signs: Vital Signs - 24 hr 01/15/23 12:00 01/15/23 12:00 01/15/23 11:55 Temperature 97.6 F Pulse Rate 59 L 61 Respiratory Rate 16 Blood Pressure 144/91 H Pulse Oximetry 99 97 Oxygen Delivery Nasal Cannula Oxygen Flow Rate 2 Fraction of Inspired Oxygen 01/15/23 14:00 01/15/23 14:15 01/15/23 14:17 Temperature Pulse Rate 59 L 62 62 Respiratory Rate 18 18 Blood Pressure Pulse Oximetry 92 Oxygen Delivery High Flow Nasal Cannula Oxygen Flow Rate 2 Fraction of Inspired Oxygen 01/15/23 14:22 01/15/23 16:04 01/15/23 16:00 Temperature 97.7 F Pulse Rate 58 L 66 56 L Respiratory Rate 18 16 Blood Pressure 146/71 H Pulse Oximetry 90 Oxygen Delivery Oxygen Flow Rate Fraction of Inspired Oxygen 01/15/23 16:00 01/15/23 18:00 01/15/23 20:00 Temperature 97.8 F P
[2023-01-16] MEDS: ALBUTEROL SULFATE NEB 2.5 MG/3 ML INH INHALATION ×3 (12:09→20:30)
--- NOTE | 2023-01-16 15:45 | PC.NURSE ---
On 01/16/23, the student, Cl DOWD [facility], provided care on this patient. I have reviewed the student's work and agree with the findings.
--- NOTE | 2023-01-16 16:43 | PC.NURSE ---
On 01/16/23, the student, Cl DOWD [facility], provided care and completed [facility] documentation on this patient. I have reviewed the student's documentation and agree with the findings.
[2023-01-16] MEDS: hydrOXYzine pamoate 25 MG CAPSULE 50 MG PO (17:39)
[2023-01-16] MEDS: dilTIAZem HCL CD 180 MG CAP.24HR PO (20:01)
[2023-01-16] MEDS: ATORVASTATIN 10 MG TABLET PO (20:01)
[2023-01-16] MEDS: rOPINIRole HCL 0.5 MG TABLET PO (20:01)
[2023-01-16] MEDS: GABAPENTIN 400 MG CAPSULE 1200 MG PO (20:01)
[2023-01-16] MEDS: LATANOPROST 0.005% OP SOLN 2.5 ML BTL 1 DROP EACH EYE (20:04)
[2023-01-16] MEDS: HYDROcodone/acetaminophen (*CRX) 5-325 MG TABLET 1 TAB PO (20:09)
[2023-01-17] VITALS (19 sets, daily range): BP systolic 150–157; BP diastolic 78–100; PULSE 54–69; RESP 16–26; TEMP 35.8–36.6; O2SAT 92–98
[2023-01-17] MEDS: hydrOXYzine pamoate 25 MG CAPSULE 50 MG PO (00:06)
[2023-01-17] MEDS: HYDROcodone/acetaminophen (*CRX) 5-325 MG TABLET 1 TAB PO ×2 (02:36→21:24)
[2023-01-17 06:22] LABS: Basophils Percent Auto 0.1 % (0.2-1.2); Eosinophils Absolute Auto 0.4 K/mm3 (0-0.3); Eosinophils Percent Auto 4.3 % (0-4.4); Hematocrit 45.5 % (37.0-47.0); Hemoglobin 14.1 g/dL (12.0-15.0); Immature Granulocyte Absolute 0.04 K/mm3 (0.00-0.031); Immature Granulocyte Percent A 0.4 % (0-0.5); Lymphocytes Absolute Auto 1.16 K/mm3 (0.9-3.2); Lymphocytes Percent Auto 11.3 % (18.3-44.2); Mean Corpuscular Hemoglobin 29.7 pg (26-34); Mean Platelet Volume 10.5 fl (7.4-10.4); Monocytes Absolute Auto 0.7 K/mm3 (0.1-0.6); Monocytes Percent Auto 7.1 % (2.6-8.5); Neutrophils Absolute Auto 7.9 K/mm3 (1.3-6.7); Neutrophils Percent Auto 76.8 % (45.5-73.1); Platelet Count Result 134 k/mm3 (150-375); Red Blood Count 4.74 M/mm3 (4.2-5.4); Red Cell Distribution Width 16.1 % (11.5-14.5); White Blood Count 10.3 K/mm3 (4.5-10.0)
[2023-01-17 06:32] LABS: Anion Gap 3 mmol/L (8-16); Blood Urea Nitrogen 42 mg/dL (7-17); Calcium 8.2 mg/dL (8.4-10.2); Carbon Dioxide 38 mmol/L (22-30); Chloride 100 mmol/L (98-107); Estimated CRCL calculation 57 ml/min; Estimated Glomerular Filt Rate 54; Glucose 103 mg/dL (65-110); Potassium 3.5 mmol/L (3.4-5.0); Sodium 141 mmol/L (137-145)
[2023-01-17 08:12] LABS: NT Pro B Type Natriuretic Pept 18700 pg/mL (19.9-100)
[2023-01-17] MEDS: GABAPENTIN 300 MG CAPSULE 600 MG PO (08:42)
[2023-01-17] MEDS: EMPAGLIFLOZIN 10 MG TABLET PO (08:43)
[2023-01-17] MEDS: guaiFENesin 12 HR 600 MG TABCR 1200 MG PO ×2 (08:43→20:02)
[2023-01-17] MEDS: PANTOPRAZOLE 40 MG TABLET PO (08:43)
[2023-01-17] MEDS: FERROUS SULFATE 325 MG TABLET DR PO ×2 (08:43→17:33)
[2023-01-17] MEDS: calcitrioL 0.25 MCG CAPSULE PO (08:43)
[2023-01-17] MEDS: SPIRONOLACTONE 25 MG TABLET PO (08:44)
[2023-01-17] MEDS: allopurinoL 100 MG TABLET 200 MG PO (08:44)
[2023-01-17] MEDS: LETROZOLE (*CHEMO) 2.5 MG TABLET PO (08:44)
[2023-01-17] MEDS: ALBUTEROL SULFATE NEB 2.5 MG/3 ML INH INHALATION (09:02)
[2023-01-17] MEDS: DOXYCYCLINE 100 MG/NS 100 ML 100 MG/100 ML BAG IVPB ×2 (09:24→20:01)
[2023-01-17] MEDS: BUMETANIDE INJ 1 MG/4 ML VIAL IV PUSH ×2 (09:24→17:34)
[2023-01-17] MEDS: cefTRIAXone 2 GM/NS 100 ML 2 GM/100 ML BAG IVPB (09:25)
[2023-01-17] MEDS: FLUTICASONE PROPIONATE 0.05% NA SPR 16 GM BTL (*BKC) 2 SPRAY NASAL (10:20)
--- NOTE | 2023-01-17 12:04 | PM.IMPN ---
Progress Note: A&P Assessment and Plan (1) CHF exacerbation: Code(s): I50.9 - Heart failure, unspecified Status: Acute (2) Elevated troponin: Code(s): R77.8 - Other specified abnormalities of plasma proteins Status: Acute Plan acute CHF preserved ejection fraction exacerbation -thoracentesis yesterday. Originally thought g stain was positive for Gram-negative cocci. This was an artifact and over-read. Lab called me today and Gram stain is negative. No need for antibiotics Continue diuresis through Friday. Possible discharge home on Friday or later next week depending upon need for noninvasive ventilator acute on chronic hypoxic and hypercarbic respiratory failure Patient is morbidly obese, BMI 62 Acute on chronic respiratory failure with hypercapnia and hypoxemia Likely resulting from fluid overload and obesity hypoventilation syndrome, and large pleural effusion Patient is on IV Lasix, and start acetazolamide 500 mg IV to decrease his bicarbonate retention per county home demonstration agent Repeat chest x-ray today, still has patchy infiltrate in right lungs, possible aspiration pneumonia or pneumonitis Continue doxy and ceftriaxone IV Shortness of breath is improving, but has still has significant dyspnea with mild exertion CT shows no PE Awaiting insurance to approve home noninvasive ventilator. Pleural effusion Initial Gram stain was read as positive for Gram-negative cocci. Correction was made, no organism seen. DC antibiotic Appreciate Pulmonary input elevated troponin -likely secondary to CHF exacerbation -no active chest pain, ACS ruled out, will trend troponins, EKG showed AFib Consult head host/hostess CKD stage 3 Elevated BUN creatinine close to baseline bicarbonate retention is improving COPD exacerbation -COPD on 2L HOT: Now patient is on BiPAP and ABG shows worsening CO2 retention adult patient is on diuretic medication Patchy infiltrate in right lung Start antibiotics see above Start DuoNeb scheduled albuterol nebulizer p.r.n. Start methylprednisolone iv Follow-up CBC CMP, procalcitonin Consult county home demonstration agent for evaluation treatment -Barretts esophagus, GERD: protonix -gout: allopurinol -chronic atrial fibrillation: AC with eliquis, rate control diltiazem -HLD: statin -TR: ferrous sulfate -neuropathy: gabapentin -morbid obesity, wheelchair bound: poor exercise effort -h/o breast cancer: on letrozole Patient needs nppv with AVAPS at discharge Subjective Date/time seen: 01/17/23 12:04 Interval history: Patient denies any shortness of breath. Reports that she does have some right hip pain. No falls or traumas. Exam Narrative: - GENERAL: Pleasant morbidly obese mild respiratory distress. - EYES: EOMI. Anicteric. - HENT: Moist mucous membranes. - LUNGS: Course lungs worse on expiration, tachypneic, dullness to percussion at the right base - CARDIOVASCULAR: Regular rate and rhythm. - ABDOMEN: Soft, non-tender and non-distended. - EXTREMITIES: 2+pitting edema throughout - NEUROLOGIC: No focal neurological deficits. CN II-XII grossly intact. - PSYCHIATRIC: Awake, Alert and oriented x 3. Appropriate mood and affect. - SKIN: No rashes or lesions. Warm. Objective Data Vital Signs Vital Signs: Vital Signs - 24 hr 01/16/23 12:10 01/16/23 12:19 01/16/23 14:00 Temperature Pulse Rate 65 64 Respiratory Rate 20 20 Blood Pressure 150/72 H Pulse Oximetry Oxygen Delivery Oxygen Flow Rate Fraction of Inspired Oxygen 01/16/23 16:15 01/16/23 16:27 01/16/23 16:00 Temperature Pulse Rate 61 64 Respiratory Rate 20 20 20 Blood Pressure 149/66 H Pulse Oximetry 93 Oxygen Delivery Oxygen Flow Rate Fraction of Inspired Oxygen 01/16/23 16:00 01/16/23 16:00 01/16/23 14:00 Temperature 98 F Pulse Rate 64 64 Respiratory Rate Blood Pressure Pulse Oximetry Oxygen Delivery Oxygen Flow Rate Fraction of Insp
[2023-01-17] MEDS: dilTIAZem HCL CD 180 MG CAP.24HR PO (20:01)
[2023-01-17] MEDS: ATORVASTATIN 10 MG TABLET PO (20:01)
[2023-01-17] MEDS: LATANOPROST 0.005% OP SOLN 2.5 ML BTL 1 DROP EACH EYE (20:02)
[2023-01-17] MEDS: rOPINIRole HCL 0.5 MG TABLET PO (20:02)
[2023-01-17] MEDS: GABAPENTIN 400 MG CAPSULE 1200 MG PO (20:02)
[2023-01-18] VITALS (18 sets, daily range): BP systolic 143–155; BP diastolic 65–98; PULSE 49–70; RESP 15–20; TEMP 36.1–36.9; O2SAT 92–98
[2023-01-18] MEDS: FLUTICASONE/SALMETEROL 230-21 MCG INHALER 1 PUFF INHALATION ×2 (08:13→21:09)
[2023-01-18] MEDS: calcitrioL 0.25 MCG CAPSULE PO (08:22)
[2023-01-18] MEDS: FERROUS SULFATE 325 MG TABLET DR PO ×2 (08:22→18:18)
[2023-01-18] MEDS: LETROZOLE (*CHEMO) 2.5 MG TABLET PO (08:22)
[2023-01-18] MEDS: PANTOPRAZOLE 40 MG TABLET PO (08:22)
[2023-01-18] MEDS: allopurinoL 100 MG TABLET 200 MG PO (08:23)
[2023-01-18] MEDS: SPIRONOLACTONE 25 MG TABLET PO (08:23)
[2023-01-18] MEDS: GABAPENTIN 300 MG CAPSULE 600 MG PO (08:23)
[2023-01-18] MEDS: EMPAGLIFLOZIN 10 MG TABLET PO (08:23)
[2023-01-18] MEDS: FLUTICASONE PROPIONATE 0.05% NA SPR 16 GM BTL (*BKC) 2 SPRAY NASAL (08:24)
[2023-01-18] MEDS: BUMETANIDE INJ 1 MG/4 ML VIAL IV PUSH ×2 (08:24→18:18)
[2023-01-18] MEDS: guaiFENesin 12 HR 600 MG TABCR 1200 MG PO ×2 (08:24→19:46)
--- NOTE | 2023-01-18 10:31 | PM.PNCARD ---
Progress Note: A&P Assessment and Plan (1) CHF exacerbation: Code(s): I50.9 - Heart failure, unspecified Status: Acute Assessment and Plan: Increase Bumex from 1 mg IV b.i.d. to t.i.d. Strict I&O 1500cc fluid restriction daily weights daily BMP while diuresing Wean O2 as tolerated Echo shows hyperdynamic LVSF, diastolic dysfunction, severe PORFIRIO, moderate TR, and severe pHTN with a PASP 96mmHg Continue jardiance. Continue Spironolactone. Plan Acute on chronic diastolic heart failure exacerbation Chronic atrial fibrillation Empyema Hypokalemia Morbid obesity Regards to hypokalemia, order potassium chloride 40 mEq p.o. x1 today. In regards to atrial fibrillation, rate controlled. Continue diltiazem. Would recommend to resume anticoagulation if there is no further surgical intervention planned. She takes at home Eliquis 5 mg b.i.d. In regards to hypertension, running on the higher side. Continue spironolactone and diltiazem. We will increase Bumex today to t.i.d.. Further adjustment to be assessed after achieving euvolemia. In regards to severe pulmonary hypertension, [id number]. Subjective Date/time seen: Date of service 01/18/23 10:31 Interval history: Cardiology follow up for CHF, Afib Date of service 01/11/2023: Patient was seen last night by the door frame assembler machine because of very low oxygen saturations would which occur when she was off of her BiPAP. She did not have any obvious change in her hemodynamic status. Chest x-ray still shows some pulmonary congestion but not really any better or worse than the prior film. She is awake and alert on BiPAP this morning. Her only complaint is that she has not been given breakfast. Date of service 01/12/2023: Patient moved IMU yesterday for more close monitoring of her oxygenation. Pulmonology consult performed yesterday noted and appreciated. She does not feel appreciably be any different than yesterday. As mentioned in my note yesterday transitioned to IV Bumex to try to prompt a more brisk diuresis. Very difficult to assess this clinically given her morbid obesity/body habitus Date of service 01/14/2023: Feeling about the same today, thinks her breathing may be slightly improved but no significant changes since yesterday. Date of service 01/15/2023: Feeling better compared to yesterday. Getting thoracentesis today. Date of service 01/16/2023: Feeling better today s/p thoracentesis yesterday with 800mL fluid removed. Date of service:01/18/2023-complaining of burning sensation at the Davis catheter site. She is in atrial fibrillation with controlled heart rate. No chest pain. Remains on oxygen. She continues have fluid overload with bilateral lower extremity edema. Review of Systems Review of Systems: No chest pain. No palpitations. Improving shortness of breath. All systems reviewed & are unremarkable except as noted in HPI and below Exam Const: General: comfortable, no acute distress, alert and awake Orientation/consciousness: patient oriented x3 Other: Morbidly obese HENMT: Head: normal to inspection Eyes: General: appearance normal, both eyes and all related structures Pupils: Equal, round and reactive pupils present Neck: Neck: normal visual inspection and supple Carotids: normal carotid upstroke Other: Unable to assess JVD due to body habitus Resp: Effort & Inspection: normal respiratory effort Auscultation: not clear to auscultation bilaterally and rales Cardio: Rate: regular rate Rhythm: regular rhythm and abnormal rhythm irregularly irregular Heart sounds: S1 normal heart sound present, S2 normal heart sound present and Murmur heart sound present systolic GI: Auscultation: normal bowel sounds Skin: General skin exam: normal color Neuro: General: patient oriented x3 Cranial nerves: Yes Equal, round and reactive pupils present Speech: normal speech Extrem: General: abnormal to inspection and ed
--- NOTE | 2023-01-18 10:42 | PM.IMPN ---
Progress Note: A&P Assessment and Plan (1) CHF exacerbation: Code(s): I50.9 - Heart failure, unspecified Status: Acute (2) Elevated troponin: Code(s): R77.8 - Other specified abnormalities of plasma proteins Status: Acute Plan acute CHF preserved ejection fraction exacerbation -thoracentesis yesterday. Originally thought g stain was positive for Gram-negative cocci. This was an artifact and over-read. Lab called me today and Gram stain is negative. No need for antibiotics Continue diuresis through Friday. Possible discharge home on Friday or later next week depending upon need for noninvasive ventilator acute on chronic hypoxic and hypercarbic respiratory failure Patient is morbidly obese, BMI 62 Acute on chronic respiratory failure with hypercapnia and hypoxemia Likely resulting from fluid overload and obesity hypoventilation syndrome, and large pleural effusion Patient is on IV Lasix, and start acetazolamide 500 mg IV to decrease his bicarbonate retention per regulated program manager Repeat chest x-ray today, still has patchy infiltrate in right lungs, possible aspiration pneumonia or pneumonitis Continue doxy and ceftriaxone IV Shortness of breath is improving, but has still has significant dyspnea with mild exertion CT shows no PE Awaiting insurance to approve home noninvasive ventilator. Pleural effusion Initial Gram stain was read as positive for Gram-negative cocci. Correction was made, no organism seen. 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 Start methylprednisolone iv Follow-up CBC CMP, procalcitonin Consult regulated program manager for evaluation treatment -Barretts esophagus, GERD: protonix -gout: allopurinol -chronic atrial fibrillation: AC with eliquis, rate control diltiazem -HLD: statin -TR: ferrous sulfate -neuropathy: gabapentin -morbid obesity, wheelchair bound: poor exercise effort -h/o breast cancer: on letrozole Patient needs nppv with AVAPS at discharge Subjective Date/time seen: 01/18/23 10:42 Interval history: No complaints Exam Narrative: - GENERAL: Pleasant morbidly obese mild respiratory distress. - EYES: EOMI. Anicteric. - HENT: Moist mucous membranes. - LUNGS: Course lungs worse on expiration, tachypneic, dullness to percussion at the right base - CARDIOVASCULAR: Regular rate and rhythm. - ABDOMEN: Soft, non-tender and non-distended. - EXTREMITIES: 2+pitting edema throughout - NEUROLOGIC: No focal neurological deficits. CN II-XII grossly intact. - PSYCHIATRIC: Awake, Alert and oriented x 3. Appropriate mood and affect. - SKIN: No rashes or lesions. Warm. Objective Data Vital Signs Vital Signs: Vital Signs - 24 hr 01/17/23 11:54 01/17/23 12:00 01/17/23 14:00 Temperature 97.1 F L Pulse Rate 63 63 64 Respiratory Rate 20 Blood Pressure 154/100 H Pulse Oximetry 97 Oxygen Delivery Oxygen Flow Rate Fraction of Inspired Oxygen 01/17/23 12:00 01/17/23 16:00 01/17/23 16:00 Temperature Pulse Rate 58 L Respiratory Rate Blood Pressure Pulse Oximetry 93 93 Oxygen Delivery Nasal Cannula Nasal Cannula Oxygen Flow Rate 3 3 Fraction of Inspired Oxygen 01/17/23 18:00 01/17/23 20:00 01/17/23 20:36 Temperature 97.3 F L Pulse Rate 58 L 60 60 Respiratory Rate 16 26 H Blood Pressure 150/80 H Pulse Oximetry 98 98 Oxygen Delivery BiPAP Oxygen Flow Rate Fraction of Inspired Oxygen 01/17/23 19:46 09/0
[2023-01-18] MEDS: POTASSIUM CHLORIDE 20 MEQ ER TABLET 40 MEQ PO (11:15)
[2023-01-18] MEDS: APIXABAN 5 MG TABLET PO ×2 (11:15→19:45)
--- NOTE | 2023-01-18 12:05 | PM.PNPUL ---
Progress Note: A&P Assessment and Plan (1) CHF exacerbation: Code(s): I50.9 - Heart failure, unspecified Status: Acute (2) Paroxysmal atrial fibrillation: Code(s): I48.0 - Paroxysmal atrial fibrillation Status: Acute (3) Pulmonary HTN: Code(s): I27.20 - Pulmonary hypertension, unspecified Status: Acute (4) COPD (chronic obstructive pulmonary disease): Code(s): J44.9 - Chronic obstructive pulmonary disease, unspecified Status: Acute (5) Acute on chronic respiratory failure with hypoxia and hypercapnia: Code(s): J96.21 - Acute and chronic respiratory failure with hypoxia; J96.22 - Acute and chronic respiratory failure with hypercapnia Status: Acute Assessment and Plan: This 77-year-old female with history of morbid obesity, sleep disordered breathing on no treatment, history of severe COPD by pulmonary function testing, chronic hypoxemia on supplemental oxygen at home, history of congestive heart failure, status post pacemaker implantation, secondary pulmonary hypertension related to left ventricular diastolic dysfunction with evidence of severely enlarged atrium on echocardiogram and also related to chronic hypoxemia resulting from sleep apnea/COPD presented with shortness of breath. She was found to have bilateral pleural effusions likely related to congestive heart failure. Patient seems to be improving on current regimen of diuretics and other medications for congestive heart failure and also on BiPAP support. Patient also received treatment for possible COPD exacerbation with steroids and short-acting bronchodilators, currently off steroids. She is on maintenance bronchodilators for COPD a short-acting bronchodilators for p.r.n. use. Efforts are underway to place patient on chronic ventilatory support at home given her hypercapnic respiratory failure. She seems to be tolerating BiPAP well. Plan: Continue with current regimen BiPAP support at night and p.r.n. during the day. Attempt out of bed to chair. Await pleural fluid results. Subjective Date/time seen: 01/18/23 12:05 Interval history: Patient presented with cough increasing shortness of breath and lower extremity edema approximately 10 days ago. Past medical history significant for CHF diabetes mellitus, status post pacemaker implantation. He has known history of sleep disordered breathing and used CPAP for less than a month following a home sleep study. Patient did not tolerate CPAP. She had been on supplemental oxygen 2 liters/minute for the last 6 months. Patient has known history of COPD with most recent PFT done last year showing severe obstructive airway disease. Also severe pulmonary hypertension which has been attributed to left ventricular diastolic dysfunction, untreated sleep disordered breathing and COPD. Patient is nonambulatory and has caregiver at home. He said he has history of severe neuropathy but the cause of not ambulatory status is not quite clear. Recent chest CT showed bilateral pleural effusions right of moderate size small pleural effusion of small size. She has undergone right thoracentesis. She has been on a BiPAP AVAPS tidal volume 500 EPAP 4 respiratory rate 15 and supplemental oxygen at 32%. She stated her respiratory status seems to be improving. She no longer has cough. She has been bed ridden since admission to the hospital. Review of Systems Review of Systems: All systems reviewed & are unremarkable except as noted in HPI and below (HPI and below) Exam Narrative: GENERAL APPEARANCE: Well developed, well nourished, alert and cooperative, and appears to be in no acute distress while on supplemental oxygen via nasal cannula. SKIN: Inspection of the skin reveals no rashes, ulcerations or petechiae. HEENT: Sclerae anicteric and conjunctivae pink and moist. Extraocular movements were intact and pupils were equal, round. Dry oral mucosa NECK: Supple. There was no thyroid en
--- NOTE | 2023-01-18 18:32 | PC.NURSE ---
Updated family at bedside on plan of care.
[2023-01-18] MEDS: dilTIAZem HCL CD 180 MG CAP.24HR PO (19:45)
[2023-01-18] MEDS: ATORVASTATIN 10 MG TABLET PO (19:45)
[2023-01-18] MEDS: LATANOPROST 0.005% OP SOLN 2.5 ML BTL 1 DROP EACH EYE (19:46)
[2023-01-18] MEDS: GABAPENTIN 400 MG CAPSULE 1200 MG PO (19:46)
[2023-01-18] MEDS: rOPINIRole HCL 0.5 MG TABLET PO (19:46)
[2023-01-18] MEDS: hydrOXYzine pamoate 25 MG CAPSULE 50 MG PO (19:47)
[2023-01-18] MEDS: HYDROcodone/acetaminophen (*CRX) 5-325 MG TABLET 1 TAB PO (19:52)
[2023-01-19] VITALS (20 sets, daily range): BP systolic 141–162; BP diastolic 67–96; PULSE 54–68; RESP 18–22; TEMP 35.6–36.2; O2SAT 91–98
[2023-01-19] MEDS: FLUTICASONE/SALMETEROL 230-21 MCG INHALER 1 PUFF INHALATION ×2 (08:12→20:44)
[2023-01-19 08:18] LABS: Basophils Percent Auto 0.1 % (0.2-1.2); Eosinophils Absolute Auto 0.4 K/mm3 (0-0.3); Eosinophils Percent Auto 3.8 % (0-4.4); Hematocrit 46.3 % (37.0-47.0); Hemoglobin 14.3 g/dL (12.0-15.0); Immature Granulocyte Absolute 0.04 K/mm3 (0.00-0.031); Immature Granulocyte Percent A 0.4 % (0-0.5); Lymphocytes Absolute Auto 1.29 K/mm3 (0.9-3.2); Lymphocytes Percent Auto 12.3 % (18.3-44.2); Mean Corpuscular HGB Conc 30.9 g/dl (32-36); Mean Corpuscular Volume 97.1 fl (80-100); Mean Platelet Volume 11.3 fl (7.4-10.4); Monocytes Absolute Auto 0.6 K/mm3 (0.1-0.6); Monocytes Percent Auto 5.9 % (2.6-8.5); Neutrophils Absolute Auto 8.1 K/mm3 (1.3-6.7); Neutrophils Percent Auto 77.5 % (45.5-73.1); Platelet Count Result 145 k/mm3 (150-375); Red Blood Count 4.77 M/mm3 (4.2-5.4); Red Cell Distribution Width 16.5 % (11.5-14.5); White Blood Count 10.5 K/mm3 (4.5-10.0)
[2023-01-19 08:46] LABS: Anion Gap 2 mmol/L (8-16); Blood Urea Nitrogen 37 mg/dL (7-17); Calcium 8.2 mg/dL (8.4-10.2); Carbon Dioxide 38 mmol/L (22-30); Chloride 100 mmol/L (98-107); Estimated CRCL calculation 62 ml/min; Estimated Glomerular Filt Rate > 60; Glucose 89 mg/dL (65-110); Potassium 4.1 mmol/L (3.4-5.0); Sodium 140 mmol/L (137-145)
[2023-01-19 08:55] LABS: NT Pro B Type Natriuretic Pept 14700 pg/mL (19.9-100)
[2023-01-19] MEDS: BUMETANIDE INJ 1 MG/4 ML VIAL IV PUSH ×3 (10:07→17:58)
[2023-01-19] MEDS: FLUTICASONE PROPIONATE 0.05% NA SPR 16 GM BTL (*BKC) 2 SPRAY NASAL (10:07)
[2023-01-19] MEDS: FERROUS SULFATE 325 MG TABLET DR PO ×2 (10:08→17:57)
[2023-01-19] MEDS: guaiFENesin 12 HR 600 MG TABCR 1200 MG PO ×2 (10:08→20:32)
[2023-01-19] MEDS: EMPAGLIFLOZIN 10 MG TABLET PO (10:08)
[2023-01-19] MEDS: calcitrioL 0.25 MCG CAPSULE PO (10:08)
[2023-01-19] MEDS: SPIRONOLACTONE 25 MG TABLET PO (10:08)
[2023-01-19] MEDS: LETROZOLE (*CHEMO) 2.5 MG TABLET PO (10:09)
[2023-01-19] MEDS: GABAPENTIN 300 MG CAPSULE 600 MG PO (10:09)
[2023-01-19] MEDS: APIXABAN 5 MG TABLET PO ×2 (10:09→20:31)
[2023-01-19] MEDS: PANTOPRAZOLE 40 MG TABLET PO (10:09)
[2023-01-19] MEDS: allopurinoL 100 MG TABLET 200 MG PO (10:09)
--- NOTE | 2023-01-19 10:40 | PM.IMPN ---
Progress Note: A&P Assessment and Plan (1) CHF exacerbation: Code(s): I50.9 - Heart failure, unspecified Status: Acute (2) Elevated troponin: Code(s): R77.8 - Other specified abnormalities of plasma proteins Status: Acute Plan acute CHF preserved ejection fraction exacerbation -thoracentesis yesterday. Originally thought g stain was positive for Gram-negative cocci. This was an artifact and over-read. Lab called me today and Gram stain is negative. No need for antibiotics Continue diuresis through Friday. Possible discharge home on Friday or later next week depending upon need for noninvasive ventilator acute on chronic hypoxic and hypercarbic respiratory failure Patient is morbidly obese, BMI 62 Acute on chronic respiratory failure with hypercapnia and hypoxemia Likely resulting from fluid overload and obesity hypoventilation syndrome, and large pleural effusion Patient is on IV Lasix, and start acetazolamide 500 mg IV to decrease his bicarbonate retention per automobile detailer Repeat chest x-ray today, still has patchy infiltrate in right lungs, possible aspiration pneumonia or pneumonitis Continue doxy and ceftriaxone IV Shortness of breath is improving, but has still has significant dyspnea with mild exertion CT shows no PE Awaiting insurance to approve home noninvasive ventilator. Pleural effusion Initial Gram stain was read as positive for Gram-negative cocci. Correction was made, no organism seen. DC antibiotic Appreciate Pulmonary input elevated troponin -likely secondary to CHF exacerbation -no active chest pain, ACS ruled out, will trend troponins, EKG showed AFib Consult direct mail clerk CKD stage 3 Elevated BUN creatinine close to baseline bicarbonate retention is improving COPD exacerbation -COPD on 2L HOT: Now patient is on BiPAP and ABG shows worsening CO2 retention adult patient is on diuretic medication Patchy infiltrate in right lung Start antibiotics see above Start DuoNeb scheduled albuterol nebulizer p.r.n. Start methylprednisolone iv Follow-up CBC CMP, procalcitonin Consult automobile detailer for evaluation treatment -Barretts esophagus, GERD: protonix -gout: allopurinol -chronic atrial fibrillation: AC with eliquis, rate control diltiazem -HLD: statin -TR: ferrous sulfate -neuropathy: gabapentin -morbid obesity, wheelchair bound: poor exercise effort -h/o breast cancer: on letrozole Patient needs nppv with AVAPS at discharge Subjective Date/time seen: 01/19/23 10:40 Interval history: no complaints feeling better Exam Narrative: - GENERAL: Pleasant morbidly obese mild respiratory distress. - EYES: EOMI. Anicteric. - HENT: Moist mucous membranes. - LUNGS: Course lungs worse on expiration, tachypneic, dullness to percussion at the right base - CARDIOVASCULAR: Regular rate and rhythm. - ABDOMEN: Soft, non-tender and non-distended. - EXTREMITIES: 2+pitting edema throughout - NEUROLOGIC: No focal neurological deficits. CN II-XII grossly intact. - PSYCHIATRIC: Awake, Alert and oriented x 3. Appropriate mood and affect. - SKIN: No rashes or lesions. Warm. Objective Data Vital Signs Vital Signs: Vital Signs - 24 hr 01/18/23 12:00 01/18/23 12:00 01/18/23 12:00 Temperature 98.5 F Pulse Rate 62 68 Respiratory Rate 20 Blood Pressure 146/69 H Pulse Oximetry 94 95 Oxygen Delivery Nasal Cannula Oxygen Flow Rate 3 Fraction of Inspired Oxygen 01/18/23 14:00 01/18/23 16:00 01/18/23 16:00 Temperature 97.7 F Pulse Rate 61 61 61 Respiratory Rate 18 Blood Pressure 155/81 H Pulse Oximetry 96 Oxygen Delivery Oxygen Flow Rate Fraction of Inspired Oxygen 01/18/23 16:00 01/18/23 18:00 01/18/23 20:00 Temperature 98.2 F Pulse Rate 67 67 Respiratory Rate 20 Blood Pressure 154/79 H Pulse Oximetry 94 93 Oxygen Delivery Nasal Cannula Oxygen Flow Rate 3 Fraction of Inspired Oxygen
--- NOTE | 2023-01-19 11:28 | PM.PNCARD ---
Progress Note: A&P Assessment and Plan (1) CHF exacerbation: Code(s): I50.9 - Heart failure, unspecified Status: Acute Assessment and Plan: Today I will go ahead and increase his Bumex from 1 mg b.i.d. to t.i.d. Strict I&O 1500cc fluid restriction daily weights daily BMP while diuresing Wean O2 as tolerated Echo shows hyperdynamic LVSF, diastolic dysfunction, severe PORFIRIO, moderate TR, and severe pHTN with a PASP 96mmHg Continue jardiance. Continue Spironolactone. Plan Acute on chronic diastolic heart failure exacerbation Chronic atrial fibrillation Empyema Hypokalemia Morbid obesity In regards to atrial fibrillation, rate controlled. Continue diltiazem. Continue Eliquis 5 mg b.i.d. In regards to hypertension, running on the higher side. Continue spironolactone and diltiazem. Will go ahead increase the Bumex to t.i.d. today. Further adjustment to be assessed after achieving euvolemia. In regards to severe pulmonary hypertension, [id number]. Subjective Date/time seen: Date of service 01/19/23 11:28 Interval history: Cardiology follow up for CHF, Afib Date of service 01/11/2023: Patient was seen last night by the sterilizer operator because of very low oxygen saturations would which occur when she was off of her BiPAP. She did not have any obvious change in her hemodynamic status. Chest x-ray still shows some pulmonary congestion but not really any better or worse than the prior film. She is awake and alert on BiPAP this morning. Her only complaint is that she has not been given breakfast. Date of service 01/12/2023: Patient moved IMU yesterday for more close monitoring of her oxygenation. Pulmonology consult performed yesterday noted and appreciated. She does not feel appreciably be any different than yesterday. As mentioned in my note yesterday transitioned to IV Bumex to try to prompt a more brisk diuresis. Very difficult to assess this clinically given her morbid obesity/body habitus Date of service 01/14/2023: Feeling about the same today, thinks her breathing may be slightly improved but no significant changes since yesterday. Date of service 01/15/2023: Feeling better compared to yesterday. Getting thoracentesis today. Date of service 01/16/2023: Feeling better today s/p thoracentesis yesterday with 800mL fluid removed. Date of service:01/18/2023-complaining of burning sensation at the Davis catheter site. She is in atrial fibrillation with controlled heart rate. No chest pain. Remains on oxygen. She continues have fluid overload with bilateral lower extremity edema. Date of service 01/19/2023-resting comfortably in bed. Continues to have edema, continues to require oxygen. AFib controlled. Remains on oxygen. She is -2 L overnight Review of Systems Review of Systems: No chest pain. No palpitations. Improving shortness of breath. All systems reviewed & are unremarkable except as noted in HPI and below Exam Const: General: comfortable, no acute distress, alert and awake Orientation/consciousness: patient oriented x3 Other: Morbidly obese HENMT: Head: normal to inspection Eyes: General: appearance normal, both eyes and all related structures Pupils: Equal, round and reactive pupils present Neck: Neck: normal visual inspection and supple Carotids: normal carotid upstroke Other: Unable to assess JVD due to body habitus Resp: Effort & Inspection: normal respiratory effort Auscultation: not clear to auscultation bilaterally and rales Cardio: Rate: regular rate Rhythm: regular rhythm and abnormal rhythm irregularly irregular Heart sounds: S1 normal heart sound present, S2 normal heart sound present and Murmur heart sound present systolic GI: Auscultation: normal bowel sounds Skin: General skin exam: normal color Neuro: General: patient oriented x3 Cranial nerves: Yes Equal, round and reactive pupils present Speech: normal speech Extrem: Ge
--- NOTE | 2023-01-19 12:34 | PM.PNPUL ---
Progress Note: A&P Assessment and Plan (1) CHF exacerbation: Code(s): I50.9 - Heart failure, unspecified Status: Acute (2) Paroxysmal atrial fibrillation: Code(s): I48.0 - Paroxysmal atrial fibrillation Status: Acute (3) Pulmonary HTN: Code(s): I27.20 - Pulmonary hypertension, unspecified Status: Acute (4) COPD (chronic obstructive pulmonary disease): Code(s): J44.9 - Chronic obstructive pulmonary disease, unspecified Status: Acute (5) Acute on chronic respiratory failure with hypoxia and hypercapnia: Code(s): J96.21 - Acute and chronic respiratory failure with hypoxia; J96.22 - Acute and chronic respiratory failure with hypercapnia Status: Acute Assessment and Plan: This 77-year-old female with history of morbid obesity, sleep disordered breathing on no treatment, history of severe COPD by pulmonary function testing, chronic hypoxemia on supplemental oxygen at home, history of congestive heart failure, status post pacemaker implantation, secondary pulmonary hypertension related to left ventricular diastolic dysfunction with evidence of severely enlarged atrium on echocardiogram and also related to chronic hypoxemia resulting from sleep apnea/COPD presented with shortness of breath. She was found to have bilateral pleural effusions likely related to congestive heart failure. Patient seems to be improving on current regimen of diuretics and other medications for congestive heart failure and also on BiPAP support. Patient also received treatment for possible COPD exacerbation with steroids and short-acting bronchodilators, currently off steroids. She is on maintenance bronchodilators for COPD a short-acting bronchodilators for p.r.n. use. Efforts are underway to place patient on chronic ventilatory support at home given her hypercapnic respiratory failure. She seems to be tolerating BiPAP well. Pleural fluid cultures negative so far. Pleural fluid albumin low, consistent with a transudate. Other pleural fluid results pending. Chest x-ray unchanged since yesterday. Plan: Continue with current regimen BiPAP support at night and p.r.n. during the day. Subjective Date/time seen: 01/19/23 12:34 Interval history: Patient presented with cough increasing shortness of breath and lower extremity edema approximately 10 days ago. Past medical history significant for CHF diabetes mellitus, status post pacemaker implantation. He has known history of sleep disordered breathing and used CPAP for less than a month following a home sleep study. Patient did not tolerate CPAP. She had been on supplemental oxygen 2 liters/minute for the last 6 months. Patient has known history of COPD with most recent PFT done last year showing severe obstructive airway disease. Also severe pulmonary hypertension which has been attributed to left ventricular diastolic dysfunction, untreated sleep disordered breathing and COPD. Patient is nonambulatory and has caregiver at home. He said he has history of severe neuropathy but the cause of not ambulatory status is not quite clear. Recent chest CT showed bilateral pleural effusions right of moderate size small pleural effusion of small size. She has undergone right thoracentesis. She has been on a BiPAP AVAPS tidal volume 500 EPAP 4 respiratory rate 15 and supplemental oxygen at 32%. She stated her respiratory status seems to be improving. She no longer has cough. She has been bed ridden since admission to the hospital. She has no new respiratory symptoms. She continues to have a mild cough with no sputum production. Shortness of breath overall better. Exam Narrative: GENERAL APPEARANCE: Well developed, well nourished, alert and cooperative, and appears to be in no acute distress while on supplemental oxygen via nasal cannula. SKIN: Inspection of the skin reveals no rashes, ulcerations or petechiae. HEENT: Sclerae anicteric and conjunctivae pink and
[2023-01-19] MEDS: ERGOCALCIFEROL 50,000 UNITS CAPSULE 50000 UNITS PO (14:00)
[2023-01-19 20:25] LABS: Glucose Pleural Fluid 132 mg/dL
[2023-01-19 20:26] LABS: LDH Pleural Fluid 76 U/L; Total Protein Pleural Fluid <3.0 g/dL
[2023-01-19] MEDS: ATORVASTATIN 10 MG TABLET PO (20:31)
[2023-01-19] MEDS: GABAPENTIN 400 MG CAPSULE 1200 MG PO (20:32)
[2023-01-19] MEDS: dilTIAZem HCL CD 180 MG CAP.24HR PO (20:32)
[2023-01-19] MEDS: rOPINIRole HCL 0.5 MG TABLET PO (20:32)
[2023-01-19] MEDS: LATANOPROST 0.005% OP SOLN 2.5 ML BTL 1 DROP EACH EYE (20:32)
[2023-01-19] MEDS: HYDROcodone/acetaminophen (*CRX) 5-325 MG TABLET 1 TAB PO (20:33)
[2023-01-19] MEDS: hydrOXYzine pamoate 25 MG CAPSULE 50 MG PO (20:33)
[2023-01-20] VITALS (17 sets, daily range): BP systolic 137–161; BP diastolic 75–95; PULSE 49–68; RESP 15–20; TEMP 36–36.5; O2SAT 92–100
[2023-01-20] MEDS: SPIRONOLACTONE 25 MG TABLET PO (08:13)
[2023-01-20] MEDS: BUMETANIDE INJ 1 MG/4 ML VIAL IV PUSH (08:13)
[2023-01-20] MEDS: FLUTICASONE PROPIONATE 0.05% NA SPR 16 GM BTL (*BKC) 2 SPRAY NASAL (08:13)
[2023-01-20] MEDS: PANTOPRAZOLE 40 MG TABLET PO (08:14)
[2023-01-20] MEDS: guaiFENesin 12 HR 600 MG TABCR 1200 MG PO ×2 (08:14→20:21)
[2023-01-20] MEDS: EMPAGLIFLOZIN 10 MG TABLET PO (08:14)
[2023-01-20] MEDS: GABAPENTIN 300 MG CAPSULE 600 MG PO (08:14)
[2023-01-20] MEDS: allopurinoL 100 MG TABLET 200 MG PO (08:14)
[2023-01-20] MEDS: APIXABAN 5 MG TABLET PO ×2 (08:14→20:22)
[2023-01-20] MEDS: calcitrioL 0.25 MCG CAPSULE PO (08:14)
[2023-01-20] MEDS: LETROZOLE (*CHEMO) 2.5 MG TABLET PO (08:14)
[2023-01-20] MEDS: FERROUS SULFATE 325 MG TABLET DR PO ×2 (08:14→16:44)
[2023-01-20] MEDS: FLUTICASONE/SALMETEROL 230-21 MCG INHALER 1 PUFF INHALATION ×2 (08:39→19:56)
--- NOTE | 2023-01-20 09:46 | PM.PNPUL ---
Progress Note: A&P Assessment and Plan (1) CHF exacerbation: Code(s): I50.9 - Heart failure, unspecified Status: Acute (2) Paroxysmal atrial fibrillation: Code(s): I48.0 - Paroxysmal atrial fibrillation Status: Acute (3) Pulmonary HTN: Code(s): I27.20 - Pulmonary hypertension, unspecified Status: Acute (4) COPD (chronic obstructive pulmonary disease): Code(s): J44.9 - Chronic obstructive pulmonary disease, unspecified Status: Acute (5) Acute on chronic respiratory failure with hypoxia and hypercapnia: Code(s): J96.21 - Acute and chronic respiratory failure with hypoxia; J96.22 - Acute and chronic respiratory failure with hypercapnia Status: Acute Assessment and Plan: This 77-year-old female with history of morbid obesity, sleep disordered breathing on no treatment, history of severe COPD by pulmonary function testing, chronic hypoxemia on supplemental oxygen at home, history of congestive heart failure, status post pacemaker implantation, secondary pulmonary hypertension related to left ventricular diastolic dysfunction with evidence of severely enlarged atrium on echocardiogram and also related to chronic hypoxemia resulting from sleep apnea/COPD presented with shortness of breath. She was found to have bilateral pleural effusions likely related to congestive heart failure. Patient seems to be improving on current regimen of diuretics and other medications for congestive heart failure and also on BiPAP support. Patient also received treatment for possible COPD exacerbation with steroids and short-acting bronchodilators, currently off steroids. She is on maintenance bronchodilators for COPD a short-acting bronchodilators for p.r.n. use. Efforts are underway to place patient on chronic ventilatory support at home given her hypercapnic respiratory failure. She seems to be tolerating BiPAP well. Apnea link study on current BiPAP settings and supplemental oxygen at 32% showed no significant oxyhemoglobin desaturation. Pleural fluid cultures negative so far. Pleural fluid albumin and total protein both low, consistent with a transudate. Other pleural fluid results pending. Chest x-ray still showing some congestion but no pleural effusions. BNP remains very elevated. On aggressive diuresis, creatinine not elevated. Plan: Continue with current regimen, BiPAP support at night and p.r.n. during the day. Await approval of home ventilator. Trial of nebulized budesonide for mild cough. Subjective Date/time seen: 01/20/23 09:46 Interval history: Patient continues to complain of mild cough. Has been bed ridden since admission to the hospital. No shortness of breath at rest. Using BiPAP support every night. Had apnea link study last night. Review of Systems Review of Systems: All systems reviewed & are unremarkable except as noted in HPI and below (HPI and below) Exam Narrative: GENERAL APPEARANCE: Well developed, well nourished, alert and cooperative, and appears to be in no acute distress while on supplemental oxygen via nasal cannula. SKIN: Inspection of the skin reveals no rashes, ulcerations or petechiae. HEENT: Sclerae anicteric and conjunctivae pink and moist. Extraocular movements were intact and pupils were equal, round. Dry oral mucosa NECK: Supple. There was no thyroid enlargement, and no tenderness, or masses were felt. LUNGS: Crackles at bases posteriorly right more than left. CARDIAC: There was a regular rate and rhythm without any murmurs, gallops, rubs. ABDOMEN: Soft and nontender with normal bowel sounds. There was no organomegaly. LYMPH NODES: No lymphadenopathy was appreciated in the neck. EXTREMITIES: No cyanosis, clubbing . Chronic stasis dermatitis changes lower extremities. NEUROLOGIC: Alert and oriented x 3. Normal affect. Objective Data Vital Signs Vital Signs: Vital Signs - 24 hr 01/19/23 10:00 01/19/23 11:58 01/19/23 12:00 Temper
--- NOTE | 2023-01-20 10:10 | PM.PNPUL ---
Progress Note: A&P Assessment and Plan (1) CHF exacerbation: Code(s): I50.9 - Heart failure, unspecified Status: Acute (2) Paroxysmal atrial fibrillation: Code(s): I48.0 - Paroxysmal atrial fibrillation Status: Acute (3) Pulmonary HTN: Code(s): I27.20 - Pulmonary hypertension, unspecified Status: Acute (4) COPD (chronic obstructive pulmonary disease): Code(s): J44.9 - Chronic obstructive pulmonary disease, unspecified Status: Acute (5) Acute on chronic respiratory failure with hypoxia and hypercapnia: Code(s): J96.21 - Acute and chronic respiratory failure with hypoxia; J96.22 - Acute and chronic respiratory failure with hypercapnia Status: Acute Assessment and Plan: This 77-year-old female with history of morbid obesity, sleep disordered breathing on no treatment, history of severe COPD by pulmonary function testing, chronic hypoxemia on supplemental oxygen at home, history of congestive heart failure, status post pacemaker implantation, secondary pulmonary hypertension related to left ventricular diastolic dysfunction with evidence of severely enlarged atrium on echocardiogram and also related to chronic hypoxemia resulting from sleep apnea/COPD presented with shortness of breath. She was found to have bilateral pleural effusions likely related to congestive heart failure. Patient seems to be improving on current regimen of diuretics and other medications for congestive heart failure and also on BiPAP support. Patient also received treatment for possible COPD exacerbation with steroids and short-acting bronchodilators, currently off steroids. She is on maintenance bronchodilators for COPD a short-acting bronchodilators for p.r.n. use. Efforts are underway to place patient on chronic ventilatory support at home given her hypercapnic respiratory failure. She seems to be tolerating BiPAP well. Apnea link study on current BiPAP settings and supplemental oxygen at 32% showed no significant oxyhemoglobin desaturation. Pleural fluid cultures negative so far. Pleural fluid albumin and total protein both low, consistent with a transudate. Other pleural fluid results pending. Chest x-ray still showing some congestion but no pleural effusions. BNP remains very elevated. On aggressive diuresis, creatinine not elevated. Plan: Continue with current regimen, BiPAP support at night and p.r.n. during the day. Await approval of home ventilator. Trial of nebulized budesonide for mild cough. Subjective Date/time seen: 01/20/23 10:10 Interval history: Patient has no new respiratory symptoms. Remains on supplemental oxygen via high flow nasal cannula and BiPAP AVAPS at night. No shortness of breath addressed. Less lower extremity edema while on aggressive diuresis. Review of Systems Review of Systems: All systems reviewed & are unremarkable except as noted in HPI and below (HPI and below) Exam Narrative: GENERAL APPEARANCE: Well developed, well nourished, alert and cooperative, and appears to be in no acute distress while on supplemental oxygen via nasal cannula. SKIN: Inspection of the skin reveals no rashes, ulcerations or petechiae. HEENT: Sclerae anicteric and conjunctivae pink and moist. Extraocular movements were intact and pupils were equal, round. Dry oral mucosa NECK: Supple. There was no thyroid enlargement, and no tenderness, or masses were felt. LUNGS: Crackles at bases posteriorly right more than left. CARDIAC: There was a regular rate and rhythm without any murmurs, gallops, rubs. ABDOMEN: Soft and nontender with normal bowel sounds. There was no organomegaly. LYMPH NODES: No lymphadenopathy was appreciated in the neck. EXTREMITIES: No cyanosis, clubbing . Chronic stasis dermatitis changes lower extremities. NEUROLOGIC: Alert and oriented x 3. Normal affect. Objective Data Vital Signs Vital Signs: Vital Signs - 24 hr 01/19/23 11:58 01/19/23 12:00
--- NOTE | 2023-01-20 11:29 | PM.IMPN ---
Progress Note: A&P Assessment and Plan (1) CHF exacerbation: Code(s): I50.9 - Heart failure, unspecified Status: Acute (2) Elevated troponin: Code(s): R77.8 - Other specified abnormalities of plasma proteins Status: Acute Plan acute CHF preserved ejection fraction exacerbation -thoracentesis yesterday. Originally thought g stain was positive for Gram-negative cocci. This was an artifact and over-read. Lab called me today and Gram stain is negative. No need for antibiotics Continue diuresis acute on chronic hypoxic and hypercarbic respiratory failure Patient is morbidly obese, BMI 62 Acute on chronic respiratory failure with hypercapnia and hypoxemia Likely resulting from fluid overload and obesity hypoventilation syndrome, and large pleural effusion Patient is on IV Lasix, and start acetazolamide 500 mg IV to decrease his bicarbonate retention per sales and support center agent Repeat chest x-ray today, still has patchy infiltrate in right lungs, possible aspiration pneumonia or pneumonitis Continue doxy and ceftriaxone IV Shortness of breath is improving, but has still has significant dyspnea with mild exertion CT shows no PE Awaiting insurance to approve home noninvasive ventilator. Continue with current regimen, BiPAP support at night and p.r.n. during the day. Await approval of home ventilator.? Trial of nebulized budesonide for mild cough. Pleural effusion Initial Gram stain was read as positive for Gram-negative cocci. Correction was made, no organism seen. DC antibiotic Appreciate Pulmonary input elevated troponin -likely secondary to CHF exacerbation -no active chest pain, ACS ruled out, will trend troponins, EKG showed AFib Consult pipeline controller CKD stage 3 Elevated BUN creatinine close to baseline bicarbonate retention is improving COPD exacerbation -COPD on 2L HOT: Now patient is on BiPAP and ABG shows worsening CO2 retention adult patient is on diuretic medication Patchy infiltrate in right lung Start antibiotics see above Start DuoNeb scheduled albuterol nebulizer p.r.n. Start methylprednisolone iv Follow-up CBC CMP, procalcitonin Consult sales and support center agent for evaluation treatment -Barretts esophagus, GERD: protonix -gout: allopurinol -chronic atrial fibrillation: AC with eliquis, rate control diltiazem -HLD: statin -TR: ferrous sulfate -neuropathy: gabapentin -morbid obesity, wheelchair bound: poor exercise effort -h/o breast cancer: on letrozole Patient needs nppv with AVAPS at discharge Subjective Date/time seen: 01/20/23 11:29 Interval history: Breathing is somewhat better. Apnea link from 01/19 noted Exam Narrative: - GENERAL: Pleasant morbidly obese mild respiratory distress. - EYES: EOMI. Anicteric. - HENT: Moist mucous membranes. - LUNGS: Course lungs worse on expiration, tachypneic, dullness to percussion at the right base - CARDIOVASCULAR: Regular rate and rhythm. - ABDOMEN: Soft, non-tender and non-distended. - EXTREMITIES: 2+pitting edema throughout - NEUROLOGIC: No focal neurological deficits. CN II-XII grossly intact. - PSYCHIATRIC: Awake, Alert and oriented x 3. Appropriate mood and affect. - SKIN: No rashes or lesions. Warm. Objective Data Vital Signs Vital Signs: Vital Signs - 24 hr 01/19/23 11:58 01/19/23 12:00 01/19/23 13:09 Temperature 96.1 F L Pulse Rate 63 61 Respiratory Rate 20 Blood Pressure 141/67 H Pulse Oximetry 93 93 Oxygen Delivery Nasal Cannula Oxygen Flow Rate 3 Fraction of Inspired Oxygen 32 01/19/23 17:02 01/19/23 16:00 01/19/23 20:00 Temperature 97.1 F L 97.2 F L Pulse Rate 64 59 L 68 Respiratory Rate 22 H 20 Blood Pressure 152/96 H 162/84 H Pulse Oximetry 97 92 Oxygen Delivery Oxygen Flow Rate Fraction of Inspired Oxygen 01/19/23 20:00 01/19/23 20:51 01/19/23 20:00 Temperature Pulse Rate 68 67 65 Respiratory Rate 20 Blood Pressure Pulse Oximetry 92 94
--- NOTE | 2023-01-20 13:04 | PM.PNCARD ---
Progress Note: A&P Assessment and Plan (1) CHF exacerbation: Code(s): I50.9 - Heart failure, unspecified Status: Acute Assessment and Plan: Will shift back to p.o. bumex today in anticipation of discharge perhaps today Strict I&O 1500cc fluid restriction daily weights daily BMP while diuresing Wean O2 as tolerated Echo shows hyperdynamic LVSF, diastolic dysfunction, severe PORFIRIO, moderate TR, and severe pHTN with a PASP 96mmHg Continue jardiance. Continue Spironolactone. Subjective Date/time seen: 01/20/23 13:04 Interval history: Cardiology follow up for CHF, Afib Date of service 01/11/2023: Patient was seen last night by the cake press operator because of very low oxygen saturations would which occur when she was off of her BiPAP. She did not have any obvious change in her hemodynamic status. Chest x-ray still shows some pulmonary congestion but not really any better or worse than the prior film. She is awake and alert on BiPAP this morning. Her only complaint is that she has not been given breakfast. Date of service 01/12/2023: Patient moved IMU yesterday for more close monitoring of her oxygenation. Pulmonology consult performed yesterday noted and appreciated. She does not feel appreciably be any different than yesterday. As mentioned in my note yesterday transitioned to IV Bumex to try to prompt a more brisk diuresis. Very difficult to assess this clinically given her morbid obesity/body habitus Date of service 01/14/2023: Feeling about the same today, thinks her breathing may be slightly improved but no significant changes since yesterday. Date of service 01/15/2023: Feeling better compared to yesterday. Getting thoracentesis today. Date of service 01/16/2023: Feeling better today s/p thoracentesis yesterday with 800mL fluid removed. Date of service:01/18/2023-complaining of burning sensation at the Davis catheter site. She is in atrial fibrillation with controlled heart rate. No chest pain. Remains on oxygen. She continues have fluid overload with bilateral lower extremity edema. Date of service 01/19/2023-resting comfortably in bed. Continues to have edema, continues to require oxygen. AFib controlled. Remains on oxygen. She is -2 L overnight Date of service 01/20/2023: Complaining of ongoing sinus congestion. Breathing is stable. Edema improving. Review of Systems Review of Systems: No chest pain. No palpitations. Improving shortness of breath. All systems reviewed & are unremarkable except as noted in HPI and below Exam Const: General: comfortable, no acute distress, alert and awake Orientation/consciousness: patient oriented x3 Other: Morbidly obese HENMT: Head: normal to inspection Eyes: General: appearance normal, both eyes and all related structures Pupils: Equal, round and reactive pupils present Neck: Neck: normal visual inspection and supple Carotids: normal carotid upstroke Other: Unable to assess JVD due to body habitus Resp: Effort & Inspection: normal respiratory effort Auscultation: not clear to auscultation bilaterally and rales Cardio: Rate: regular rate Rhythm: regular rhythm and abnormal rhythm irregularly irregular Heart sounds: S1 normal heart sound present, S2 normal heart sound present and Murmur heart sound present systolic GI: Auscultation: normal bowel sounds Skin: General skin exam: normal color Neuro: General: patient oriented x3 Cranial nerves: Yes Equal, round and reactive pupils present Speech: normal speech Extrem: General: abnormal to inspection and edema (mild bilateral lower extremity edema ) Psych: Appearance: grossly normal Mental Status: mental status grossly normal Objective Data Vital Signs Vital Signs: Vital Signs - 24 hr 01/19/23 13:09 01/19/23 17:02 01/19/23 16:00 Temperature 36.2 C L Pulse Rate 64 59 L Respiratory Rate 22 H Blood Pressure 152/96 H Pulse Oximetry 93 97 O
[2023-01-20] MEDS: BUMETANIDE 1 MG TABLET 2 MG PO (16:44)
[2023-01-20] MEDS: BUDESONIDE RESPULE NEB 0.5 MG/2 ML AMP INHALATION (19:55)
[2023-01-20] MEDS: GABAPENTIN 400 MG CAPSULE 1200 MG PO (20:20)
[2023-01-20] MEDS: HYDROcodone/acetaminophen (*CRX) 5-325 MG TABLET 1 TAB PO (20:20)
[2023-01-20] MEDS: rOPINIRole HCL 0.5 MG TABLET PO (20:20)
[2023-01-20] MEDS: hydrOXYzine pamoate 25 MG CAPSULE 50 MG PO (20:21)
[2023-01-20] MEDS: ATORVASTATIN 10 MG TABLET PO (20:21)
[2023-01-20] MEDS: dilTIAZem HCL CD 180 MG CAP.24HR PO (20:21)
[2023-01-20] MEDS: LATANOPROST 0.005% OP SOLN 2.5 ML BTL 1 DROP EACH EYE (20:22)
[2023-01-21] VITALS (14 sets, daily range): BP systolic 145–154; BP diastolic 62–81; PULSE 52–96; RESP 17–22; TEMP 36–36.9; O2SAT 93–99
--- NOTE | 2023-01-21 09:05 | PM.PNPUL ---
Progress Note: A&P Assessment and Plan (1) CHF exacerbation: Code(s): I50.9 - Heart failure, unspecified Status: Acute (2) Paroxysmal atrial fibrillation: Code(s): I48.0 - Paroxysmal atrial fibrillation Status: Acute (3) Pulmonary HTN: Code(s): I27.20 - Pulmonary hypertension, unspecified Status: Acute (4) COPD (chronic obstructive pulmonary disease): Code(s): J44.9 - Chronic obstructive pulmonary disease, unspecified Status: Acute (5) Acute on chronic respiratory failure with hypoxia and hypercapnia: Code(s): J96.21 - Acute and chronic respiratory failure with hypoxia; J96.22 - Acute and chronic respiratory failure with hypercapnia Status: Acute Assessment and Plan: This 77-year-old female with history of morbid obesity, sleep disordered breathing on no treatment, history of severe COPD by pulmonary function testing, chronic hypoxemia on supplemental oxygen at home, history of congestive heart failure, status post pacemaker implantation, secondary pulmonary hypertension related to left ventricular diastolic dysfunction with evidence of severely enlarged atrium on echocardiogram and also related to chronic hypoxemia resulting from sleep apnea/COPD presented with shortness of breath. She was found to have bilateral pleural effusions likely related to congestive heart failure. Patient seems to be improving on current regimen of diuretics and other medications for congestive heart failure and also on BiPAP support. Patient also received treatment for possible COPD exacerbation with steroids and short-acting bronchodilators, currently off steroids. She is on maintenance bronchodilators for COPD a short-acting bronchodilators for p.r.n. use. Efforts are underway to place patient on chronic ventilatory support at home given her hypercapnic respiratory failure. She seems to be tolerating BiPAP well. Apnea link study on current BiPAP settings and supplemental oxygen at 32% showed no significant oxyhemoglobin desaturation. Pleural fluid cultures negative so far. Pleural fluid albumin and total protein both low, consistent with a transudate. Other pleural fluid results pending. Chest x-ray still showing some congestion but no pleural effusions. BNP remains very elevated. On aggressive diuresis, creatinine not elevated. Plan: Continue with current regimen, BiPAP support at night and p.r.n. during the day. Await approval of home ventilator. Trial of nebulized budesonide for mild cough. Cough could be related to pulmonary edema. Will discontinue Pulmicort after couple of days if cough not better. Case was discussed with the hospitalist. Subjective Date/time seen: 01/21/23 09:05 Interval history: Patient has no new respiratory symptoms. She continues to complain of mild cough; started on nebulized Pulmicort yesterday. Shortness of breath about a changed. She has no significant orthopnea. Last chest x-ray raised question of pulmonary congestion. Review of Systems Review of Systems: All systems reviewed & are unremarkable except as noted in HPI and below (HPI and below) Exam Narrative: GENERAL APPEARANCE: Well developed, well nourished, alert and cooperative, and appears to be in no acute distress while on supplemental oxygen via nasal cannula. SKIN: Inspection of the skin reveals no rashes, ulcerations or petechiae. HEENT: Sclerae anicteric and conjunctivae pink and moist. Extraocular movements were intact and pupils were equal, round. Dry oral mucosa NECK: Supple. There was no thyroid enlargement, and no tenderness, or masses were felt. LUNGS: Crackles at bases posteriorly right more than left. CARDIAC: There was a regular rate and rhythm without any murmurs, gallops, rubs. ABDOMEN: Soft and nontender with normal bowel sounds. There was no organomegaly. LYMPH NODES: No lymphadenopathy was appreciated in the neck. EXTREMITIES: No cyanosis, clubbing . Chronic stasis brian
[2023-01-21] MEDS: BUDESONIDE RESPULE NEB 0.5 MG/2 ML AMP INHALATION ×2 (09:48→20:20)
[2023-01-21] MEDS: FLUTICASONE/SALMETEROL 230-21 MCG INHALER 1 PUFF INHALATION ×2 (09:48→20:20)
[2023-01-21] MEDS: allopurinoL 100 MG TABLET 200 MG PO (10:03)
[2023-01-21] MEDS: APIXABAN 5 MG TABLET PO ×2 (10:04→21:17)
[2023-01-21] MEDS: calcitrioL 0.25 MCG CAPSULE PO (10:04)
[2023-01-21] MEDS: BUMETANIDE 1 MG TABLET 2 MG PO ×2 (10:04→18:36)
[2023-01-21] MEDS: FLUTICASONE PROPIONATE 0.05% NA SPR 16 GM BTL (*BKC) 2 SPRAY NASAL (10:05)
[2023-01-21] MEDS: FERROUS SULFATE 325 MG TABLET DR PO ×2 (10:05→18:36)
[2023-01-21] MEDS: EMPAGLIFLOZIN 10 MG TABLET PO (10:05)
[2023-01-21] MEDS: SPIRONOLACTONE 25 MG TABLET PO (10:06)
[2023-01-21] MEDS: GABAPENTIN 300 MG CAPSULE 600 MG PO (10:06)
[2023-01-21] MEDS: PANTOPRAZOLE 40 MG TABLET PO (10:06)
[2023-01-21] MEDS: guaiFENesin 12 HR 600 MG TABCR 1200 MG PO ×2 (10:06→21:17)
[2023-01-21] MEDS: LETROZOLE (*CHEMO) 2.5 MG TABLET PO (10:06)
[2023-01-21] MEDS: ACETAMINOPHEN 325 MG TABLET 650 MG PO ×2 (10:07→21:13)
--- NOTE | 2023-01-21 11:34 | PM.IMPN ---
Progress Note: A&P Assessment and Plan (1) CHF exacerbation: Code(s): I50.9 - Heart failure, unspecified Status: Acute (2) Elevated troponin: Code(s): R77.8 - Other specified abnormalities of plasma proteins Status: Acute Plan acute CHF preserved ejection fraction exacerbation -thoracentesis yesterday. Originally thought g stain was positive for Gram-negative cocci. This was an artifact and over-read. Lab called me today and Gram stain is negative. No need for antibiotics Continue diuresis appreciate cardiology input acute on chronic hypoxic and hypercarbic respiratory failure Patient is morbidly obese, BMI 62 Acute on chronic respiratory failure with hypercapnia and hypoxemia Likely resulting from fluid overload and obesity hypoventilation syndrome, and large pleural effusion continue diuretics Shortness of breath is improving, but has still has significant dyspnea with mild exertion CT shows no PE Awaiting insurance to approve home noninvasive ventilator. Continue with current regimen, BiPAP support at night and p.r.n. during the day as needed. Await approval of home ventilator.? Trial of nebulized budesonide for mild cough. Appreciate pulm input Pleural effusion Initial Gram stain was read as positive for Gram-negative cocci. Correction was made, no organism seen. DC antibiotic Appreciate Pulmonary input elevated troponin no cp Consult blender / cook CKD stage 3 Elevated BUN creatinine close to baseline bicarbonate retention is improving COPD exacerbation -COPD on 2L HOT: Now patient is on BiPAP and ABG shows worsening CO2 retention adult patient is on diuretic medication Patchy infiltrate in right lung Start antibiotics see above Start DuoNeb scheduled albuterol nebulizer p.r.n. Start methylprednisolone iv Follow-up CBC CMP, procalcitonin Consult jinrikisha driver for evaluation treatment -Barretts esophagus, GERD: protonix -gout: allopurinol -chronic atrial fibrillation: AC with eliquis, rate control diltiazem -HLD: statin -TR: ferrous sulfate -neuropathy: gabapentin -morbid obesity, wheelchair bound: poor exercise effort -h/o breast cancer: on letrozole Subjective Date/time seen: 01/21/23 11:34 Interval history: feeling about the same, no cp sob at baseline over last couple days Exam Narrative: - GENERAL: Pleasant morbidly obese mild respiratory distress. - EYES: EOMI. Anicteric. - HENT: Moist mucous membranes. - LUNGS: Course lungs worse on expiration, tachypneic, dullness to percussion at the right base - CARDIOVASCULAR: Regular rate and rhythm. - ABDOMEN: Soft, non-tender and non-distended. - EXTREMITIES: 2+pitting edema throughout - NEUROLOGIC: No focal neurological deficits. CN II-XII grossly intact. - PSYCHIATRIC: Awake, Alert and oriented x 3. Appropriate mood and affect. - SKIN: No rashes or lesions. Warm. Objective Data Vital Signs Vital Signs: Vital Signs - 24 hr 01/20/23 11:52 01/20/23 12:00 01/20/23 16:00 Temperature 97.2 F L Pulse Rate 58 L 60 68 Respiratory Rate 18 Blood Pressure 161/76 H Pulse Oximetry 94 Oxygen Delivery Oxygen Flow Rate Fraction of Inspired Oxygen 01/20/23 16:37 01/20/23 19:56 01/20/23 19:57 Temperature 97.1 F L Pulse Rate 61 63 63 Respiratory Rate 18 18 18 Blood Pressure 149/86 H Pulse Oximetry 92 97 Oxygen Delivery Nasal Cannula Oxygen Flow Rate 2 Fraction of Inspired Oxygen 28 01/20/23 20:10 01/20/23 20:00 01/20/23 20:00 Temperature 97.7 F Pulse Rate 65 63 61 Respiratory Rate 18 20 Blood Pressure 158/88 H Pulse Oximetry 93 Oxygen Delivery Oxygen Flow Rate Fraction of Inspired Oxygen 01/20/23 20:00 01/20/23 22:10 01/20/23 23:17 Temperature 97.7 F Pulse Rate 61 57 L 55 L Respiratory Rate 18 20 19 Blood Pressure 137/75 Pulse Oximetry 93 96 97 Oxygen Delivery Nasal Cannula BiPAP Oxygen Flow Rate 2 Fraction of Inspired Ox
--- NOTE | 2023-01-21 12:04 | PM.PNCARD ---
Progress Note: A&P Assessment and Plan (1) CHF exacerbation: Code(s): I50.9 - Heart failure, unspecified Status: Acute Assessment and Plan: Continue with PO Bumex. Diuresing well on PO Bumex. Strict I&O 1500cc fluid restriction Daily weights Daily BMP while diuresing Wean O2 as tolerated Continue Jardiance. Continue Spironolactone. Subjective Date/time seen: 01/21/23 12:05 Interval history: Cardiology follow up for CHF, Afib Date of service 01/11/2023: Patient was seen last night by the [facility] facility psychiatrist because of very low oxygen saturations would which occur when she was off of her BiPAP. She did not have any obvious change in her hemodynamic status. Chest x-ray still shows some pulmonary congestion but not really any better or worse than the prior film. She is awake and alert on BiPAP this morning. Her only complaint is that she has not been given breakfast. Date of service 01/12/2023: Patient moved IMU yesterday for more close monitoring of her oxygenation. Pulmonology consult performed yesterday noted and appreciated. She does not feel appreciably be any different than yesterday. As mentioned in my note yesterday transitioned to IV Bumex to try to prompt a more brisk diuresis. Very difficult to assess this clinically given her morbid obesity/body habitus Date of service 01/14/2023: Feeling about the same today, thinks her breathing may be slightly improved but no significant changes since yesterday. Date of service 01/15/2023: Feeling better compared to yesterday. Getting thoracentesis today. Date of service 01/16/2023: Feeling better today s/p thoracentesis yesterday with 800mL fluid removed. Date of service 01/18/2023: Complaining of burning sensation at the Davis catheter site. She is in atrial fibrillation with controlled heart rate. No chest pain. Remains on oxygen. She continues have fluid overload with bilateral lower extremity edema. Date of service 01/19/2023: Resting comfortably in bed. Continues to have edema, continues to require oxygen. AFib controlled. Remains on oxygen. She is -2 L overnight Date of service 01/20/2023: Complaining of ongoing sinus congestion. Breathing is stable. Edema improving. Date of service 01/21: Continues to report congestion and dry cough. Diuresing well. Exam Const: General: no acute distress HENMT: Mouth: Yes moist mucous membranes Eyes: General: appearance normal, both eyes and all related structures Sclera: sclerae normal Resp: Effort & Inspection: normal respiratory effort Cardio: Rhythm: abnormal rhythm irregularly irregular Skin: General skin exam: normal color Neuro: Speech: normal speech Psych: Mental Status: mental status grossly normal Affect: normal affect Objective Data Vital Signs Vital Signs: Vital Signs - 24 hr 01/20/23 16:00 01/20/23 16:37 01/20/23 19:56 Temperature 36.2 C L Pulse Rate 68 61 63 Respiratory Rate 18 18 Blood Pressure 149/86 H Pulse Oximetry 92 97 Oxygen Delivery Nasal Cannula Oxygen Flow Rate 2 Fraction of Inspired Oxygen 01/20/23 19:57 01/20/23 20:10 01/20/23 20:00 Temperature 36.5 C Pulse Rate 63 65 63 Respiratory Rate 18 18 20 Blood Pressure 158/88 H Pulse Oximetry 93 Oxygen Delivery Oxygen Flow Rate Fraction of Inspired Oxygen 01/20/23 20:00 01/20/23 20:00 01/20/23 22:10 Temperature Pulse Rate 61 61 57 L Respiratory Rate 18 20 Blood Pressure Pulse Oximetry 93 96 Oxygen Delivery Nasal Cannula BiPAP Oxygen Flow Rate 2 Fraction of Inspired Oxygen 01/20/23 23:17 01/21/23 00:00 01/21/23 02:46 Temperature 36.5 C Pulse Rate 55 L 53 L 53 L Respiratory Rate 19 17 Blood Pressure 137/75 Pulse Oximetry 97 96 Oxygen Delivery BiPAP Oxygen Flow Rate Fraction of Inspired Oxygen 01/21/23 04:00 01/21/23 04:00 01/21/23 08:49 Temperature 36.7 C 36.0 C L Pulse Rate 54 L 52 L 60 Respiratory Rate
[2023-01-21 12:39] LABS: Amylase, Pleural Fluid <10 U/L
[2023-01-21] MEDS: HYDROcodone/acetaminophen (*CRX) 5-325 MG TABLET 1 TAB PO (18:36)
[2023-01-21] MEDS: GABAPENTIN 400 MG CAPSULE 1200 MG PO (21:16)
[2023-01-21] MEDS: ATORVASTATIN 10 MG TABLET PO (21:16)
[2023-01-21] MEDS: LATANOPROST 0.005% OP SOLN 2.5 ML BTL 1 DROP EACH EYE (21:17)
[2023-01-21] MEDS: rOPINIRole HCL 0.5 MG TABLET PO (21:17)
[2023-01-21] MEDS: dilTIAZem HCL CD 180 MG CAP.24HR PO (21:17)
[2023-01-22] VITALS (15 sets, daily range): BP systolic 135–151; BP diastolic 58–65; PULSE 51–70; RESP 16–200; TEMP 36.4–36.9; O2SAT 91–97
--- NOTE | 2023-01-22 07:37 | PC.NURSE ---
Patient to transfer to 252, Report given to Zoie. Day shift staff to transport patient to 252.
--- NOTE | 2023-01-22 08:31 | PC.NURSE ---
Daughter asks that care coordination call and update with patient status. patient has home health aids that come to the home and she needs to make sure that she gets them scheduled prior to discharge along with her home oxygen.
[2023-01-22] MEDS: BUDESONIDE RESPULE NEB 0.5 MG/2 ML AMP INHALATION ×2 (08:33→20:11)
[2023-01-22] MEDS: FLUTICASONE/SALMETEROL 230-21 MCG INHALER 1 PUFF INHALATION ×2 (08:36→20:12)
--- NOTE | 2023-01-22 09:04 | PCNWS ---
Weekly nutritional screen. Patient is tolerating current Heart healthy diet with adequate intake, 100% meal intakes. 1500 ml/day fluid restriction. No weight loss reported. No nutritional needs at this time.
--- NOTE | 2023-01-22 09:16 | PM.PNPUL ---
Progress Note: A&P Assessment and Plan (1) CHF exacerbation: Code(s): I50.9 - Heart failure, unspecified Status: Acute (2) Paroxysmal atrial fibrillation: Code(s): I48.0 - Paroxysmal atrial fibrillation Status: Acute (3) Pulmonary HTN: Code(s): I27.20 - Pulmonary hypertension, unspecified Status: Acute (4) COPD (chronic obstructive pulmonary disease): Code(s): J44.9 - Chronic obstructive pulmonary disease, unspecified Status: Acute (5) Acute on chronic respiratory failure with hypoxia and hypercapnia: Code(s): J96.21 - Acute and chronic respiratory failure with hypoxia; J96.22 - Acute and chronic respiratory failure with hypercapnia Status: Acute Assessment and Plan: This 77-year-old female with history of morbid obesity, sleep disordered breathing on no treatment, history of severe COPD by pulmonary function testing, chronic hypoxemia on supplemental oxygen at home, history of congestive heart failure, status post pacemaker implantation, secondary pulmonary hypertension related to left ventricular diastolic dysfunction with evidence of severely enlarged atrium on echocardiogram and also related to chronic hypoxemia resulting from sleep apnea/COPD presented with shortness of breath. She was found to have bilateral pleural effusions likely related to congestive heart failure. Patient seems to be improving on current regimen of diuretics and other medications for congestive heart failure and also on BiPAP support. Patient also received treatment for possible COPD exacerbation with steroids and short-acting bronchodilators, currently off steroids. She is on maintenance bronchodilators for COPD a short-acting bronchodilators for p.r.n. use. Efforts are underway to place patient on chronic ventilatory support at home given her hypercapnic respiratory failure. She seems to be tolerating BiPAP well. Apnea link study on current BiPAP settings and supplemental oxygen at 32% showed no significant oxyhemoglobin desaturation. Pleural fluid cultures negative so far. Pleural fluid albumin and total protein both low, consistent with a transudate. Other pleural fluid results pending. Chest x-ray still showing some congestion but no pleural effusions. BNP remains very elevated. On aggressive diuresis, creatinine not elevated. Cough not better, she still on nebulized Pulmicort. Plan: Continue with current regimen, BiPAP support at night and p.r.n. during the day. Await approval of home ventilator. Trial of nebulized budesonide for mild cough. Cough could be related to pulmonary edema. Continue with Pulmicort for 1 more day. Subjective Date/time seen: 01/22/23 09:16 Interval history: Patient has no new respiratory symptoms. She remains on low-flow oxygen via nasal cannula. Still mild cough as before despite treatment with nebulized budesonide. Remains in bed. Review of Systems Review of Systems: All systems reviewed & are unremarkable except as noted in HPI and below (HPI and below) Exam Narrative: GENERAL APPEARANCE: Well developed, well nourished, alert and cooperative, and appears to be in no acute distress while on supplemental oxygen via nasal cannula. SKIN: Inspection of the skin reveals no rashes, ulcerations or petechiae. HEENT: Sclerae anicteric and conjunctivae pink and moist. Extraocular movements were intact and pupils were equal, round. Dry oral mucosa NECK: Supple. There was no thyroid enlargement, and no tenderness, or masses were felt. LUNGS: Crackles at bases posteriorly right more than left. CARDIAC: There was a regular rate and rhythm without any murmurs, gallops, rubs. ABDOMEN: Soft and nontender with normal bowel sounds. There was no organomegaly. LYMPH NODES: No lymphadenopathy was appreciated in the neck. EXTREMITIES: No cyanosis, clubbing . Chronic stasis dermatitis changes lower extremities. NEUROLOGIC: Alert and oriented x 3. Normal affect. O
[2023-01-22] MEDS: GABAPENTIN 300 MG CAPSULE 600 MG PO (09:28)
[2023-01-22] MEDS: guaiFENesin 12 HR 600 MG TABCR 1200 MG PO ×2 (09:28→20:43)
[2023-01-22] MEDS: APIXABAN 5 MG TABLET PO ×2 (09:28→20:43)
[2023-01-22] MEDS: SPIRONOLACTONE 25 MG TABLET PO (09:28)
[2023-01-22] MEDS: BUMETANIDE 1 MG TABLET 2 MG PO ×2 (09:29→17:03)
[2023-01-22] MEDS: FERROUS SULFATE 325 MG TABLET DR PO ×2 (09:29→17:03)
[2023-01-22] MEDS: calcitrioL 0.25 MCG CAPSULE PO (09:29)
[2023-01-22] MEDS: FLUTICASONE PROPIONATE 0.05% NA SPR 16 GM BTL (*BKC) 2 SPRAY NASAL (09:29)
[2023-01-22] MEDS: LETROZOLE (*CHEMO) 2.5 MG TABLET PO (09:29)
[2023-01-22] MEDS: PANTOPRAZOLE 40 MG TABLET PO (09:29)
[2023-01-22] MEDS: allopurinoL 100 MG TABLET 200 MG PO (09:29)
[2023-01-22] MEDS: EMPAGLIFLOZIN 10 MG TABLET PO (09:29)
--- NOTE | 2023-01-22 09:41 | PC.NURSE ---
This patient, Ashley Croft, was transferred to [ed room 252 ] on 01/22/23 at 0845. Personal belongings sent with patient. Report given to [Zoie morejon RN ]. Appropriate documentation sent with patient.
[2023-01-22] MEDS: HYDROcodone/acetaminophen (*CRX) 5-325 MG TABLET 1 TAB PO ×2 (09:45→18:31)
--- NOTE | 2023-01-22 10:30 | PM.IMPN ---
Progress Note: A&P Assessment and Plan (1) CHF exacerbation: Code(s): I50.9 - Heart failure, unspecified Status: Acute (2) Paroxysmal atrial fibrillation: Code(s): I48.0 - Paroxysmal atrial fibrillation Status: Acute (3) Pulmonary HTN: Code(s): I27.20 - Pulmonary hypertension, unspecified Status: Acute (4) COPD (chronic obstructive pulmonary disease): Code(s): J44.9 - Chronic obstructive pulmonary disease, unspecified Status: Acute (5) Acute on chronic respiratory failure with hypoxia and hypercapnia: Code(s): J96.21 - Acute and chronic respiratory failure with hypoxia; J96.22 - Acute and chronic respiratory failure with hypercapnia Status: Acute Assessment and Plan: This 77-year-old female with history of morbid obesity, sleep disordered breathing on no treatment, history of severe COPD by pulmonary function testing, chronic hypoxemia on supplemental oxygen at home, history of congestive heart failure, status post pacemaker implantation, secondary pulmonary hypertension related to left ventricular diastolic dysfunction with evidence of severely enlarged atrium on echocardiogram and also related to chronic hypoxemia resulting from sleep apnea/COPD presented with shortness of breath. She was found to have bilateral pleural effusions likely related to congestive heart failure. Patient seems to be improving on current regimen of diuretics and other medications for congestive heart failure and also on BiPAP support. Patient also received treatment for possible COPD exacerbation with steroids and short-acting bronchodilators, currently off steroids. She is on maintenance bronchodilators for COPD a short-acting bronchodilators for p.r.n. use. Efforts are underway to place patient on chronic ventilatory support at home given her hypercapnic respiratory failure. She seems to be tolerating BiPAP well. Apnea link study on current BiPAP settings and supplemental oxygen at 32% showed no significant oxyhemoglobin desaturation. Pleural fluid cultures negative so far. Pleural fluid albumin and total protein both low, consistent with a transudate. Other pleural fluid results pending. Chest x-ray still showing some congestion but no pleural effusions. On aggressive diuresis, creatinine not elevated. Plan: Continue with current regimen, BiPAP support at night and p.r.n. during the day. Await approval of home ventilator. Trial of nebulized budesonide for mild cough. Cough could be related to pulmonary edema. Continue with Pulmicort for 1 more day. Subjective Date/time seen: 01/22/23 10:30 Interval history: At baseline Review of Systems Review of Systems: All systems reviewed & are unremarkable except as noted in HPI and below (HPI and below) Exam Narrative: GENERAL APPEARANCE: Well developed, well nourished, alert and cooperative, and appears to be in no acute distress while on supplemental oxygen via nasal cannula. SKIN: Inspection of the skin reveals no rashes, ulcerations or petechiae. HEENT: Sclerae anicteric and conjunctivae pink and moist. Extraocular movements were intact and pupils were equal, round. Dry oral mucosa NECK: Supple. There was no thyroid enlargement, and no tenderness, or masses were felt. LUNGS: Crackles at bases posteriorly right more than left. CARDIAC: There was a regular rate and rhythm without any murmurs, gallops, rubs. ABDOMEN: Soft and nontender with normal bowel sounds. There was no organomegaly. LYMPH NODES: No lymphadenopathy was appreciated in the neck. EXTREMITIES: No cyanosis, clubbing . Chronic stasis dermatitis changes lower extremities. NEUROLOGIC: Alert and oriented x 3. Normal affect. Objective Data Vital Signs Vital Signs: Vital Signs - 24 hr 01/21/23 12:00 01/21/23 15:54 01/21/23 16:00 Temperature 97.6 F Pulse Rate 63 66 63 Respiratory Rate 20 Blood Pressure 152/74 H Pulse Oximetry 93 Oxygen Delivery
[2023-01-22] MEDS: hydrOXYzine pamoate 25 MG CAPSULE 50 MG PO ×2 (14:17→23:31)
[2023-01-22] MEDS: ACETAMINOPHEN 325 MG TABLET 650 MG PO ×2 (14:17→20:43)
[2023-01-22] MEDS: GABAPENTIN 400 MG CAPSULE 1200 MG PO (20:42)
[2023-01-22] MEDS: ATORVASTATIN 10 MG TABLET PO (20:42)
[2023-01-22] MEDS: dilTIAZem HCL CD 180 MG CAP.24HR PO (20:43)
[2023-01-22] MEDS: rOPINIRole HCL 0.5 MG TABLET PO (20:43)
[2023-01-22] MEDS: LATANOPROST 0.005% OP SOLN 2.5 ML BTL 1 DROP EACH EYE (20:47)
[2023-01-23] VITALS (18 sets, daily range): BP systolic 141–146; BP diastolic 52–101; PULSE 54–72; RESP 16–24; TEMP 35.9–36.9; O2SAT 93–96
[2023-01-23] MEDS: HYDROcodone/acetaminophen (*CRX) 5-325 MG TABLET 1 TAB PO ×3 (00:17→23:48)
[2023-01-23 06:19] LABS: Anion Gap 3 mmol/L (8-16); Blood Urea Nitrogen 30 mg/dL (7-17); Carbon Dioxide 38 mmol/L (22-30); Chloride 98 mmol/L (98-107); Estimated CRCL calculation 48 ml/min; Estimated Glomerular Filt Rate 48; Glucose 102 mg/dL (65-110); Potassium 3.6 mmol/L (3.4-5.0); Sodium 139 mmol/L (137-145)
[2023-01-23] MEDS: BUDESONIDE RESPULE NEB 0.5 MG/2 ML AMP INHALATION ×2 (07:49→21:57)
[2023-01-23] MEDS: FLUTICASONE/SALMETEROL 230-21 MCG INHALER 1 PUFF INHALATION ×2 (07:50→21:57)
[2023-01-23] MEDS: guaiFENesin 12 HR 600 MG TABCR 1200 MG PO ×2 (08:58→22:04)
[2023-01-23] MEDS: SPIRONOLACTONE 25 MG TABLET PO (08:58)
[2023-01-23] MEDS: GABAPENTIN 300 MG CAPSULE 600 MG PO (08:58)
[2023-01-23] MEDS: calcitrioL 0.25 MCG CAPSULE PO (08:59)
[2023-01-23] MEDS: APIXABAN 5 MG TABLET PO ×2 (08:59→22:06)
[2023-01-23] MEDS: LETROZOLE (*CHEMO) 2.5 MG TABLET PO (08:59)
[2023-01-23] MEDS: PANTOPRAZOLE 40 MG TABLET PO (08:59)
[2023-01-23] MEDS: FERROUS SULFATE 325 MG TABLET DR PO ×2 (08:59→17:39)
[2023-01-23] MEDS: EMPAGLIFLOZIN 10 MG TABLET PO (08:59)
[2023-01-23] MEDS: allopurinoL 100 MG TABLET 200 MG PO (08:59)
[2023-01-23] MEDS: BUMETANIDE 1 MG TABLET 2 MG PO (09:00)
[2023-01-23] MEDS: FLUTICASONE PROPIONATE 0.05% NA SPR 16 GM BTL (*BKC) 2 SPRAY NASAL (09:07)
[2023-01-23] MEDS: SPIRONOLACTONE 25 MG TABLET 50 MG PO (10:40)
--- NOTE | 2023-01-23 11:29 | PM.IMPN ---
Progress Note: A&P Assessment and Plan (1) CHF exacerbation: Code(s): I50.9 - Heart failure, unspecified Status: Acute (2) Paroxysmal atrial fibrillation: Code(s): I48.0 - Paroxysmal atrial fibrillation Status: Acute (3) Pulmonary HTN: Code(s): I27.20 - Pulmonary hypertension, unspecified Status: Acute (4) COPD (chronic obstructive pulmonary disease): Code(s): J44.9 - Chronic obstructive pulmonary disease, unspecified Status: Acute (5) Acute on chronic respiratory failure with hypoxia and hypercapnia: Code(s): J96.21 - Acute and chronic respiratory failure with hypoxia; J96.22 - Acute and chronic respiratory failure with hypercapnia Status: Acute Assessment and Plan: This 77-year-old female with history of morbid obesity, sleep disordered breathing on no treatment, history of severe COPD by pulmonary function testing, chronic hypoxemia on supplemental oxygen at home, history of congestive heart failure, status post pacemaker implantation, secondary pulmonary hypertension related to left ventricular diastolic dysfunction with evidence of severely enlarged atrium on echocardiogram and also related to chronic hypoxemia resulting from sleep apnea/COPD presented with shortness of breath. She was found to have bilateral pleural effusions likely related to congestive heart failure. Patient seems to be improving on current regimen of diuretics and other medications for congestive heart failure and also on BiPAP support. Patient also received treatment for possible COPD exacerbation with steroids and short-acting bronchodilators, currently off steroids. She is on maintenance bronchodilators for COPD a short-acting bronchodilators for p.r.n. use. Efforts are underway to place patient on chronic ventilatory support at home given her hypercapnic respiratory failure. She seems to be tolerating BiPAP well. Apnea link study on current BiPAP settings and supplemental oxygen at 32% showed no significant oxyhemoglobin desaturation. Pleural fluid cultures negative so far. Pleural fluid albumin and total protein both low, consistent with a transudate. Other pleural fluid results pending. Chest x-ray still showing some congestion but no pleural effusions. On aggressive diuresis, creatinine not elevated. Plan: Continue with current regimen, BiPAP support at night and p.r.n. during the day. Await approval of home ventilator. Trial of nebulized budesonide for mild cough. Cough could be related to pulmonary edema. Pending home ventilator approval Subjective Date/time seen: 09/14/23 11:29 Interval history: No issues at present Review of Systems Review of Systems: All systems reviewed & are unremarkable except as noted in HPI and below (HPI and below) Exam Narrative: GENERAL APPEARANCE: Morbidly obese SKIN: Inspection of the skin reveals no rashes, ulcerations or petechiae. HEENT: Sclerae anicteric and conjunctivae pink and moist. Extraocular movements were intact and pupils were equal, round. Dry oral mucosa NECK: Supple. There was no thyroid enlargement, and no tenderness, or masses were felt. LUNGS: Crackles at bases posteriorly right more than left. CARDIAC: There was a regular rate and rhythm without any murmurs, gallops, rubs. ABDOMEN: Soft and nontender with normal bowel sounds. There was no organomegaly. LYMPH NODES: No lymphadenopathy was appreciated in the neck. EXTREMITIES: No cyanosis, clubbing . Chronic stasis dermatitis changes lower extremities. NEUROLOGIC: Alert and oriented x 3. Normal affect. Objective Data Vital Signs Vital Signs: Vital Signs - 24 hr 01/22/23 12:00 01/22/23 14:13 01/22/23 16:00 Temperature 97.5 F L Pulse Rate 58 L 60 62 Respiratory Rate 16 Blood Pressure 151/65 H Pulse Oximetry 92 Oxygen Delivery Oxygen Flow Rate Fraction of Inspired Oxygen 01/22/23 19:40 01/22/23 20:14 01/22/23 20:15 Temperature 9
--- NOTE | 2023-01-23 11:58 | PM.PNCARD ---
Progress Note: A&P Assessment and Plan (1) CHF exacerbation: Code(s): I50.9 - Heart failure, unspecified Status: Acute Assessment and Plan: Diuresing well on PO Bumex 2mg BID. Is making about 5-6 liters of urine a day. Given the high urine output and slight bump in SCr, will avoid overdiuresis and back down on the Bumex to 2mg QD. Strict I&O 1500cc fluid restriction Daily weights Daily BMP while diuresing Wean O2 as tolerated Continue Jardiance. Continue Spironolactone. Subjective Date/time seen: 01/23/23 11:58 Interval history: Cardiology follow up for CHF, Afib Date of service 01/11/2023: Patient was seen last night by the sorting and folding supervisor because of very low oxygen saturations would which occur when she was off of her BiPAP. She did not have any obvious change in her hemodynamic status. Chest x-ray still shows some pulmonary congestion but not really any better or worse than the prior film. She is awake and alert on BiPAP this morning. Her only complaint is that she has not been given breakfast. Date of service 01/12/2023: Patient moved IMU yesterday for more close monitoring of her oxygenation. Pulmonology consult performed yesterday noted and appreciated. She does not feel appreciably be any different than yesterday. As mentioned in my note yesterday transitioned to IV Bumex to try to prompt a more brisk diuresis. Very difficult to assess this clinically given her morbid obesity/body habitus Date of service 01/14/2023: Feeling about the same today, thinks her breathing may be slightly improved but no significant changes since yesterday. Date of service 01/15/2023: Feeling better compared to yesterday. Getting thoracentesis today. Date of service 01/16/2023: Feeling better today s/p thoracentesis yesterday with 800mL fluid removed. Date of service 01/18/2023: Complaining of burning sensation at the Davis catheter site. She is in atrial fibrillation with controlled heart rate. No chest pain. Remains on oxygen. She continues have fluid overload with bilateral lower extremity edema. Date of service 01/19/2023: Resting comfortably in bed. Continues to have edema, continues to require oxygen. AFib controlled. Remains on oxygen. She is -2 L overnight Date of service 01/20/2023: Complaining of ongoing sinus congestion. Breathing is stable. Edema improving. Date of service 01/21: Continues to report congestion and dry cough. Diuresing well. Date of service 01/23: Doing okay, still reports some congestion but improving. Diuresing well. Exam Const: General: no acute distress HENMT: Mouth: Yes moist mucous membranes Eyes: General: appearance normal, both eyes and all related structures Sclera: sclerae normal Resp: Effort & Inspection: normal respiratory effort Cardio: Rhythm: abnormal rhythm irregularly irregular Skin: General skin exam: normal color Neuro: Speech: normal speech Psych: Mental Status: mental status grossly normal Affect: normal affect Objective Data Vital Signs Vital Signs: Vital Signs - 24 hr 01/22/23 12:00 01/22/23 14:13 01/22/23 16:00 Temperature 36.4 C L Pulse Rate 58 L 60 62 Respiratory Rate 16 Blood Pressure 151/65 H Pulse Oximetry 92 Oxygen Delivery Oxygen Flow Rate Fraction of Inspired Oxygen 01/22/23 19:40 01/22/23 20:14 01/22/23 20:15 Temperature 36.9 C Pulse Rate 61 63 63 Respiratory Rate 18 20 200 H Blood Pressure 135/58 L Pulse Oximetry 91 96 Oxygen Delivery Nasal Cannula Oxygen Flow Rate 2 Fraction of Inspired Oxygen 28 01/22/23 20:20 01/22/23 20:00 01/22/23 20:00 Temperature Pulse Rate 62 59 L Respiratory Rate 20 Blood Pressure Pulse Oximetry 96 Oxygen Delivery Nasal Cannula Oxygen Flow Rate 2 Fraction of Inspired Oxygen 01/23/23 00:00 01/23/23 00:40 01/23/23 03:13 Temperature Pulse Rate 64 71 70 Respiratory Rate 21 H 16 Blood Pressure Pulse Oxim
--- NOTE | 2023-01-23 14:47 | PC.NURSE ---
On 01/23/23, the student, [Drew Ortiz], provided care and completed [facility] documentation on this patient. I have reviewed the student's documentation and agree with the findings.
[2023-01-23] MEDS: hydrOXYzine pamoate 25 MG CAPSULE 50 MG PO ×2 (17:39→23:48)
[2023-01-23] MEDS: GABAPENTIN 400 MG CAPSULE 1200 MG PO (22:04)
[2023-01-23] MEDS: ATORVASTATIN 10 MG TABLET PO (22:05)
[2023-01-23] MEDS: rOPINIRole HCL 0.5 MG TABLET PO (22:06)
[2023-01-23] MEDS: dilTIAZem HCL CD 180 MG CAP.24HR PO (22:06)
[2023-01-23] MEDS: ACETAMINOPHEN 325 MG TABLET 650 MG PO (22:08)
[2023-01-23] MEDS: LATANOPROST 0.005% OP SOLN 2.5 ML BTL 1 DROP EACH EYE (22:10)
[2023-01-24] VITALS (14 sets, daily range): BP systolic 130–153; BP diastolic 62–82; PULSE 49–68; RESP 16–20; TEMP 36.6–36.9; O2SAT 91–97
[2023-01-24] MEDS: hydrOXYzine pamoate 25 MG CAPSULE 50 MG PO ×2 (06:48→19:24)
[2023-01-24] MEDS: BUDESONIDE RESPULE NEB 0.5 MG/2 ML AMP INHALATION (08:05)
[2023-01-24] MEDS: FLUTICASONE/SALMETEROL 230-21 MCG INHALER 1 PUFF INHALATION (08:07)
[2023-01-24] MEDS: allopurinoL 100 MG TABLET 200 MG PO (09:25)
[2023-01-24] MEDS: BUMETANIDE 1 MG TABLET 2 MG PO (09:25)
[2023-01-24] MEDS: APIXABAN 5 MG TABLET PO ×2 (09:26→20:09)
[2023-01-24] MEDS: FERROUS SULFATE 325 MG TABLET DR PO ×2 (09:26→17:38)
[2023-01-24] MEDS: calcitrioL 0.25 MCG CAPSULE PO (09:26)
[2023-01-24] MEDS: EMPAGLIFLOZIN 10 MG TABLET PO (09:26)
[2023-01-24] MEDS: FLUTICASONE PROPIONATE 0.05% NA SPR 16 GM BTL (*BKC) 2 SPRAY NASAL (09:27)
[2023-01-24] MEDS: GABAPENTIN 300 MG CAPSULE 600 MG PO (09:28)
[2023-01-24] MEDS: PANTOPRAZOLE 40 MG TABLET PO (09:28)
[2023-01-24] MEDS: SPIRONOLACTONE 25 MG TABLET 50 MG PO (09:28)
[2023-01-24] MEDS: LETROZOLE (*CHEMO) 2.5 MG TABLET PO (09:28)
[2023-01-24] MEDS: guaiFENesin 12 HR 600 MG TABCR 1200 MG PO ×2 (09:32→20:09)
--- NOTE | 2023-01-24 09:34 | PM.IMPN ---
Progress Note: A&P Assessment and Plan (1) CHF exacerbation: Code(s): I50.9 - Heart failure, unspecified Status: Acute (2) Paroxysmal atrial fibrillation: Code(s): I48.0 - Paroxysmal atrial fibrillation Status: Acute (3) Pulmonary HTN: Code(s): I27.20 - Pulmonary hypertension, unspecified Status: Acute (4) COPD (chronic obstructive pulmonary disease): Code(s): J44.9 - Chronic obstructive pulmonary disease, unspecified Status: Acute (5) Acute on chronic respiratory failure with hypoxia and hypercapnia: Code(s): J96.21 - Acute and chronic respiratory failure with hypoxia; J96.22 - Acute and chronic respiratory failure with hypercapnia Status: Acute Assessment and Plan: This 77-year-old female with history of morbid obesity, sleep disordered breathing on no treatment, history of severe COPD by pulmonary function testing, chronic hypoxemia on supplemental oxygen at home, history of congestive heart failure, status post pacemaker implantation, secondary pulmonary hypertension related to left ventricular diastolic dysfunction with evidence of severely enlarged atrium on echocardiogram and also related to chronic hypoxemia resulting from sleep apnea/COPD presented with shortness of breath. She was found to have bilateral pleural effusions likely related to congestive heart failure. Patient seems to be improving on current regimen of diuretics and other medications for congestive heart failure and also on BiPAP support. Patient also received treatment for possible COPD exacerbation with steroids and short-acting bronchodilators, currently off steroids. She is on maintenance bronchodilators for COPD a short-acting bronchodilators for p.r.n. use. Efforts are underway to place patient on chronic ventilatory support at home given her hypercapnic respiratory failure. She seems to be tolerating BiPAP well. Apnea link study on current BiPAP settings and supplemental oxygen at 32% showed no significant oxyhemoglobin desaturation. Pleural fluid cultures negative so far. Pleural fluid albumin and total protein both low, consistent with a transudate. Chest x-ray still showing some congestion but no pleural effusions. On Bumex per Cardiology Plan: Continue with current regimen, BiPAP support at night and p.r.n. during the day. Await approval of home ventilator. Trial of nebulized budesonide for mild cough. Cough could be related to pulmonary edema. Pending home ventilator approval Subjective Date/time seen: 01/24/23 09:34 Interval history: No new issues overnight Review of Systems Review of Systems: All systems reviewed & are unremarkable except as noted in HPI and below (HPI and below) Exam Narrative: GENERAL APPEARANCE: Morbidly obese SKIN: Inspection of the skin reveals no rashes, ulcerations or petechiae. HEENT: Sclerae anicteric and conjunctivae pink and moist. Extraocular movements were intact and pupils were equal, round. Dry oral mucosa NECK: Supple. There was no thyroid enlargement, and no tenderness, or masses were felt. LUNGS: Crackles at bases posteriorly right more than left. CARDIAC: There was a regular rate and rhythm without any murmurs, gallops, rubs. ABDOMEN: Soft and nontender with normal bowel sounds. There was no organomegaly. LYMPH NODES: No lymphadenopathy was appreciated in the neck. EXTREMITIES: No cyanosis, clubbing . Chronic stasis dermatitis changes lower extremities. NEUROLOGIC: Alert and oriented x 3. Normal affect. Objective Data Vital Signs Vital Signs: Vital Signs - 24 hr 01/23/23 10:00 01/23/23 13:17 01/23/23 12:00 Temperature 98.2 F Pulse Rate 69 61 Respiratory Rate 18 Blood Pressure 146/52 H Pulse Oximetry 95 93 Oxygen Delivery Nasal Cannula Oxygen Flow Rate 2 Fraction of Inspired Oxygen 01/23/23 16:00 01/23/23 21:41 01/23/23 21:58 Temperature 98.4 F Pulse Rate 62 67 62 Respiratory Rate 20 20
--- NOTE | 2023-01-24 10:48 | PCRCNOTE ---
Trilogy unit denied by patient's insurance. Dr. Milligan has ordered bipap with an overnight oximetry in the hospital tonight for possible discharge on bipap as an alternative.
--- NOTE | 2023-01-24 13:56 | PM.PNPUL ---
Progress Note: A&P Assessment and Plan (1) CHF exacerbation: Code(s): I50.9 - Heart failure, unspecified Status: Acute (2) Paroxysmal atrial fibrillation: Code(s): I48.0 - Paroxysmal atrial fibrillation Status: Acute (3) Pulmonary HTN: Code(s): I27.20 - Pulmonary hypertension, unspecified Status: Acute (4) COPD (chronic obstructive pulmonary disease): Code(s): J44.9 - Chronic obstructive pulmonary disease, unspecified Status: Acute (5) Acute on chronic respiratory failure with hypoxia and hypercapnia: Code(s): J96.21 - Acute and chronic respiratory failure with hypoxia; J96.22 - Acute and chronic respiratory failure with hypercapnia Status: Acute Assessment and Plan: This 77-year-old female with history of morbid obesity, sleep disordered breathing on no treatment, history of severe COPD by pulmonary function testing, chronic hypoxemia on supplemental oxygen at home, history of congestive heart failure, status post pacemaker implantation, secondary pulmonary hypertension related to left ventricular diastolic dysfunction with evidence of severely enlarged atrium on echocardiogram and also related to chronic hypoxemia resulting from sleep apnea/COPD presented with shortness of breath. She was found to have bilateral pleural effusions likely related to congestive heart failure. Patient seems to be improving on current regimen of diuretics and other medications for congestive heart failure and also on BiPAP support. Patient also received treatment for possible COPD exacerbation with steroids and short-acting bronchodilators, currently off steroids. She is on maintenance bronchodilators for COPD a short-acting bronchodilators for p.r.n. use. Efforts are underway to place patient on chronic ventilatory support at home given her hypercapnic respiratory failure. She seems to be tolerating BiPAP well. Apnea link study on current BiPAP settings and supplemental oxygen at 32% showed no significant oxyhemoglobin desaturation. Pleural fluid cultures negative so far. Pleural fluid albumin and total protein both low, consistent with a transudate. Chest x-ray still showing some congestion but no pleural effusions. On Bumex per Cardiology Plan: Told that home ventilator has not been approved. Insurance company willing to cover just plain BiPAP at home. Will try generic BiPAP 14/10 tonight, backup rate 12, 3 L oxygen bled in. ApneaLink study tonight. Subjective Date/time seen: 01/24/23 13:56 Interval history: Patient complaining of some skin itching she has no new respiratory symptoms. Using BiPAP support at night spends most of the day in bed. Willing to go home. Review of Systems Review of Systems: All systems reviewed & are unremarkable except as noted in HPI and below (HPI and below) Exam Narrative: GENERAL APPEARANCE: Well developed, well nourished, alert and cooperative, and appears to be in no acute distress while on supplemental oxygen via nasal cannula. SKIN: Inspection of the skin reveals no rashes, ulcerations or petechiae. HEENT: Sclerae anicteric and conjunctivae pink and moist. Extraocular movements were intact and pupils were equal, round. Dry oral mucosa NECK: Supple. There was no thyroid enlargement, and no tenderness, or masses were felt. LUNGS: Crackles at bases posteriorly right more than left. CARDIAC: There was a regular rate and rhythm without any murmurs, gallops, rubs. ABDOMEN: Soft and nontender with normal bowel sounds. There was no organomegaly. LYMPH NODES: No lymphadenopathy was appreciated in the neck. EXTREMITIES: No cyanosis, clubbing . Chronic stasis dermatitis changes lower extremities. NEUROLOGIC: Alert and oriented x 3. Normal affect. Objective Data Vital Signs Vital Signs: Vital Signs - 24 hr 01/23/23 16:00 01/23/23 21:41 01/23/23 21:58 Temperature 36.9 C Pulse Rate 62 67 62 Respiratory Rate 20 20 Blood Pressure 141
--- NOTE | 2023-01-24 15:52 | PM.PNCARD ---
Progress Note: A&P Assessment and Plan (1) CHF exacerbation: Code(s): I50.9 - Heart failure, unspecified Status: Acute Plan 77-year-old lady with massive obesity, diastolic congestive heart failure and obstructive sleep apnea. She is improving with regard to volume overload very nicely with Bumex currently on a oral dosage once per day. This should be continued upon discharge. Obviously her established physicians will see her after discharge and may further adjust the medications depending on her volume status electrolytes renal function etc.. Cardiology will sign off at this time her follow-up will not be with our practice as she is established with [facility] Oral Lezama MD [facility] Subjective Date/time seen: date of service:01/24/23 15:52 Interval history: Cardiology follow up for CHF, Afib Date of service 01/11/2023: Patient was seen last night by the sandwich counter attendant because of very low oxygen saturations would which occur when she was off of her BiPAP. She did not have any obvious change in her hemodynamic status. Chest x-ray still shows some pulmonary congestion but not really any better or worse than the prior film. She is awake and alert on BiPAP this morning. Her only complaint is that she has not been given breakfast. Date of service 01/12/2023: Patient moved IMU yesterday for more close monitoring of her oxygenation. Pulmonology consult performed yesterday noted and appreciated. She does not feel appreciably be any different than yesterday. As mentioned in my note yesterday transitioned to IV Bumex to try to prompt a more brisk diuresis. Very difficult to assess this clinically given her morbid obesity/body habitus Date of service 01/14/2023: Feeling about the same today, thinks her breathing may be slightly improved but no significant changes since yesterday. Date of service 01/15/2023: Feeling better compared to yesterday. Getting thoracentesis today. Date of service 01/16/2023: Feeling better today s/p thoracentesis yesterday with 800mL fluid removed. Date of service 01/18/2023: Complaining of burning sensation at the Davis catheter site. She is in atrial fibrillation with controlled heart rate. No chest pain. Remains on oxygen. She continues have fluid overload with bilateral lower extremity edema. Date of service 01/19/2023: Resting comfortably in bed. Continues to have edema, continues to require oxygen. AFib controlled. Remains on oxygen. She is -2 L overnight Date of service 01/20/2023: Complaining of ongoing sinus congestion. Breathing is stable. Edema improving. Date of service 01/21: Continues to report congestion and dry cough. Diuresing well. Date of service 01/23: Doing okay, still reports some congestion but improving. Diuresing well. Date of service 01/24/2023: Asymptomatic doing very well being fitted with a BiPAP device for today anticipating discharge home tomorrow. Stress importance to the patient to contact her spray painter helper in [place] for timely follow-up Exam Const: General: comfortable, no acute distress, alert and awake Orientation/consciousness: patient oriented x3 Other: Morbidly obese HENMT: Head: normal to inspection Mouth: Yes moist mucous membranes Eyes: General: appearance normal, both eyes and all related structures Sclera: sclerae normal Pupils: Equal, round and reactive pupils present Neck: Neck: normal visual inspection and supple Carotids: normal carotid upstroke Other: Unable to assess JVD due to body habitus Resp: Effort & Inspection: normal respiratory effort Auscultation: not clear to auscultation bilaterally and rales Cardio: Rate: regular rate Rhythm: regular rhythm and abnormal rhythm irregularly irregular Heart sounds: S1 normal heart sound present, S2 normal heart sound present and Murmur heart sound present systolic GI: Auscultation: normal bowel sounds Skin: General ski
[2023-01-24] MEDS: dilTIAZem HCL CD 180 MG CAP.24HR PO (20:09)
[2023-01-24] MEDS: GABAPENTIN 400 MG CAPSULE 1200 MG PO (20:09)
[2023-01-24] MEDS: ATORVASTATIN 10 MG TABLET PO (20:09)
[2023-01-24] MEDS: rOPINIRole HCL 0.5 MG TABLET PO (20:09)
[2023-01-24] MEDS: HYDROcodone/acetaminophen (*CRX) 5-325 MG TABLET 1 TAB PO (20:12)
[2023-01-24] MEDS: ACETAMINOPHEN 325 MG TABLET 650 MG PO (22:09)
[2023-01-24] MEDS: LATANOPROST 0.005% OP SOLN 2.5 ML BTL 1 DROP EACH EYE (22:09)
[2023-01-25] VITALS (7 sets, daily range): BP systolic 153–157; BP diastolic 66; PULSE 57–60; RESP 16–20; TEMP 36.7; O2SAT 91–92
[2023-01-25] MEDS: MORPHINE SULFATE (*CRX) 4 MG/ML INJ IV PUSH (00:04)
--- NOTE | 2023-01-25 00:40 | PCRCNOTE ---
Window of time for administration has passed. See next scheduled administration.
[2023-01-25] MEDS: HYDROcodone/acetaminophen (*CRX) 5-325 MG TABLET 1 TAB PO (04:56)
[2023-01-25] MEDS: hydrOXYzine pamoate 25 MG CAPSULE 50 MG PO (04:57)
[2023-01-25] MEDS: BUDESONIDE RESPULE NEB 0.5 MG/2 ML AMP INHALATION (07:03)
[2023-01-25] MEDS: FLUTICASONE/SALMETEROL 230-21 MCG INHALER 1 PUFF INHALATION (07:04)
[2023-01-25] MEDS: GABAPENTIN 300 MG CAPSULE 600 MG PO (09:27)
[2023-01-25] MEDS: BUMETANIDE 1 MG TABLET 2 MG PO (09:28)
[2023-01-25] MEDS: SPIRONOLACTONE 25 MG TABLET 50 MG PO (09:28)
[2023-01-25] MEDS: APIXABAN 5 MG TABLET PO (09:29)
[2023-01-25] MEDS: allopurinoL 100 MG TABLET 200 MG PO (09:29)
[2023-01-25] MEDS: LETROZOLE (*CHEMO) 2.5 MG TABLET PO (09:29)
[2023-01-25] MEDS: EMPAGLIFLOZIN 10 MG TABLET PO (09:29)
[2023-01-25] MEDS: guaiFENesin 12 HR 600 MG TABCR 1200 MG PO (09:29)
[2023-01-25] MEDS: FERROUS SULFATE 325 MG TABLET DR PO (09:29)
[2023-01-25] MEDS: PANTOPRAZOLE 40 MG TABLET PO (09:29)
[2023-01-25] MEDS: calcitrioL 0.25 MCG CAPSULE PO (09:29)
[2023-01-25] MEDS: FLUTICASONE PROPIONATE 0.05% NA SPR 16 GM BTL (*BKC) 2 SPRAY NASAL (09:30)
[2023-01-25] MEDS: ACETAMINOPHEN 325 MG TABLET 650 MG PO (09:47)
--- NOTE | 2023-01-25 10:25 | PM.DS ---
DS: Admitting Diagnosis Discharge Date 01/25/2023 Admitting Diagnosis Acute hypoxic respiratory failure CHF exacerbation DS: Discharge Diagnosis Discharge Diagnosis (1) COPD (chronic obstructive pulmonary disease): Code(s): J44.9 - Chronic obstructive pulmonary disease, unspecified Status: Acute (2) Acute on chronic respiratory failure with hypoxia and hypercapnia: Code(s): J96.21 - Acute and chronic respiratory failure with hypoxia; J96.22 - Acute and chronic respiratory failure with hypercapnia Status: Acute (3) CHF exacerbation: Code(s): I50.9 - Heart failure, unspecified Status: Acute DS: Summary Hospital Course Hospital Course: This 77-year-old female with history of? morbid obesity, sleep disordered breathing on no treatment, history of severe COPD by pulmonary function testing, chronic hypoxemia on supplemental oxygen at home, history of congestive heart failure, status post pacemaker implantation, secondary pulmonary hypertension related to left ventricular diastolic dysfunction with evidence of? severely enlarged atrium on echocardiogram and also related to chronic hypoxemia resulting from sleep apnea/COPD presented with shortness of breath.? She was found to have bilateral pleural effusions likely related to congestive heart failure.? Patient seems to be improving on current regimen of diuretics and other medications for congestive heart failure and also on BiPAP support.? Patient also received treatment for possible COPD exacerbation with steroids and short-acting bronchodilators, currently off steroids.? She is on maintenance bronchodilators for COPD a short-acting bronchodilators for p.r.n. use.? Efforts are underway to place patient on chronic ventilatory support at home given her hypercapnic respiratory failure.? She seems to be tolerating BiPAP well.? Apnea link study on current BiPAP settings and supplemental oxygen at 32% showed no significant oxyhemoglobin desaturation. Pleural fluid cultures negative so far.? Pleural fluid albumin and total protein both low, consistent with a transudate. Chest x-ray still showing some congestion but no pleural effusions.? On Bumex, spironolactone, Jardiance per Cardiology. Plan:?home ventilator has not been approved.? Insurance company willing to cover just plain BiPAP at home.? Will try generic BiPAP 14/10 tonight, backup rate 12, 3 L oxygen bled in.? ApneaLink study tonight. Patient being discharged home with BiPAP Time Spent with Patient Time attestation: Total time spent providing and/or coordinating discharge services: DS: Data Data Completed and Pending Completed studies during hospitalization: Pending at discharge 01/15/23 10:17 Cytology [PTH] Routine Labs on day of discharge: Preliminary micro results at discharge 01/15/23 12:50 Fungal Culture - Preliminary Pleural Fluid 01/15/23 12:13 Acid Fast Bacilli Culture - Preliminary Pleural Fluid Discharge Plan Discharge Consulting providers: Jignesh Gibson; Annia Tyler Discharging Clinician: Víctor Wu Anticipated Discharge Date/Time: 01/25/23 10:22 Patient Disposition: Home, Self-Care Activity: no preference Diet: heart healthy Patient Instructions: Antibiotic Form, Apixaban (By mouth), How to Stop Smoking (DC), COPD (Chronic Obstructive Pulmonary Disease) (DC), Safe Use of Anticoagulants (DC) Stand Alone Forms: General Discharge Information Follow-up/Referrals: Annia Tyler MD [Physician] - Church,MD David [Primary Care Provider] - Discharge Medications: New bumetanide 1 mg Tablet 2 mg PO DAILY@0800 Qty: 30 0RF Jardiance 10 mg Tablet 10 mg PO DAILY Qty: 30 0RF spironolactone 25 mg Tablet 50 mg PO QAM Qty: 30 0RF Continued diltiazem HCl [Cardizem CD] 180 mg Capsule,Extended Release 24hr 180 mg PO HS Rx Instructions: ADMINISTER IN THE EVENING fluticasone propionate 50 mcg/actuation Henry
== END 2023-01-25 13:20 | disposition home or self-care (01) | DRG 291 ==
LOC: ANHED 13:25 → ANHIMU 17:09 → ANH2MED 01-10 17:30 → ANHIMU 01-11 14:40 → ANH2MED 01-22 08:55
PROVIDERS: Chiropractor; Emergency Medicine; Hospitalist; Internal Medicine; Internal Medicine Critical Care Medicine; Internal Medicine Pulmonary Disease; Admitting Provider Student in an Organized Health Care Education/Training Program; Emergency Provider Emergency Medicine; PCP Family Medicine; Visit Provider Hospitalist
DX: I13.0 Hypertensive heart and chronic kidney disease with heart failure and stage 1 through stage 4 chronic kidney disease, or unspecified chronic kidney disease (principal); I50.33 Acute on chronic diastolic (congestive) heart failure; J96.22 Acute and chronic respiratory failure with hypercapnia; J69.0 Pneumonitis due to inhalation of food and vomit; J96.21 Acute and chronic respiratory failure with hypoxia; Z68.44 Body mass index [BMI] 60.0-69.9, adult; E66.2 Morbid (severe) obesity with alveolar hypoventilation; J90 Pleural effusion, not elsewhere classified; J44.1 Chronic obstructive pulmonary disease with (acute) exacerbation; E66.01 Morbid (severe) obesity due to excess calories; G47.33 Obstructive sleep apnea (adult) (pediatric); N18.30 Chronic kidney disease, stage 3 unspecified; G62.9 Polyneuropathy, unspecified; E87.6 Hypokalemia; I48.0 Paroxysmal atrial fibrillation; R77.8 Other specified abnormalities of plasma proteins; I27.20 Pulmonary hypertension, unspecified; K21.9 Gastro-esophageal reflux disease without esophagitis; E78.5 Hyperlipidemia, unspecified; I36.1 Nonrheumatic tricuspid (valve) insufficiency; D50.9 Iron deficiency anemia, unspecified; Z87.891 Personal history of nicotine dependence; Z99.3 Dependence on wheelchair; Z79.01 Long term (current) use of anticoagulants; Z85.3 Personal history of malignant neoplasm of breast; Z95.0 Presence of cardiac pacemaker
CPT/HCPCS: 32555; 36415; 36600; 71045; 71275; 73502; 80048; 80053; 82042; 82150; 82375; 82805; 82945; 83050; 83615; 83735; 83880; 83986; 84145; 84155; 84157; 84439; 84443; 84478; 84484; 85025; 85027; 85055; 85610; 85730; 87015; 87070; 87075; 87102; 87116; 87205; 87206; 87636; 88108; 88184; 88305; 88342; 89051; 92610; 93005; 93308; 94002; 94003; 94640; 94762; 96374; 96375; 99285; A9270; C8929; J0696; J1120; J1940; J2270; J2920; J2930; J7512; Q9957; Q9967

== ENCOUNTER 2023-01-29 15:03 | Observation (INO) | payer MEDICARE, SELFPAY ==
[2023-01-29] VITALS (26 sets, daily range): BP systolic 120–158; BP diastolic 72–110; PULSE 56–90; RESP 13–25; TEMP 36.2–36.7; O2SAT 89–100; BMI 50.5
--- NOTE | ~2023-01-29 | XR_ITS ---
EXAMINATION: XR hip LT 2V w AP pelvis INDICATION: Left leg pain TECHNIQUE: AP view of the pelvis and two views of the left hip are obtained. COMPARISON: None available FINDINGS: Bone alignment is normal. There is no fracture. There is moderate osteoarthritis of the hip s. IMPRESSION: 1. No acute osseous abnormality. Reviewed, dictated and finalized at location L.
--- NOTE | ~2023-01-29 | XR_ITS ---
XR shoulder RT 1V DATE: 01/29/2023 17:15 INDICATION: Reduction of anterior dislocation TECHNIQUE: Portable single AP view COMPARISON: 01/29/2023 right shoulder and humerus FINDINGS: There is reduction of the anterior glenohumeral dislocation compared to earlier radiographs . Rotator cuff atrophy. Status post lower anterior cervical spine surgical fusion. Osteopenia. Right atrial and ventricular pacemaker leads are noted. IMPRESSION: Reduction of anterior glenohumeral joint dislocation Right rotator cuff atrophy Reviewed, dictated and finalized at location A.
--- NOTE | ~2023-01-29 | CT_ITS ---
EXAMINATION: CT hip LT wo con DATE: 01/30/2023 14:45 INDICATION: Left hip pain post fall TECHNIQUE: High resolution computed tomography (CT) of the left hip was performed without intravenous contrast. Additional sagittal and coronal reconstructions were performed. Automated exposure control and iterative reconstruction technique were employed. The dose-length product was 695.90 mGy-cm. COMPARISON: Hip radiographs dated 01/30/2023 FINDINGS: Alignment is normal. No fracture or suspected osteonecrosis. There is mild left hip and sacroiliac os teoarthritis. No hip joint effusion. Subcutaneous edema lateral to the left hip and proximal femur. 3 cm diverticulum along the left side of the bladder. There are few diverticula along the visualized s igmoid colon without adjacent inflammatory stranding to suggest diverticulitis. No pathologically enl arged left pelvic or inguinal lymphadenopathy. IMPRESSION: 1. Mild left hip and sacroiliac osteoarthritis. No acute osseous abnormality. Reviewed, dictated and finalized at location A.
--- NOTE | ~2023-01-29 | XR_ITS ---
EXAMINATION: XR humerus RT INDICATION: Right humerus pain TECHNIQUE: Two views of the right humerus are obtained on three radiographs. COMPARISON: None available FINDINGS: There is anterior and inferior dislocation of the humeral head with respect to the glenoid. No humerus fracture is identified. The soft tissues are unremarkable. IMPRESSION: 1. Anterior and inferior dislocation of the humeral head with respect to the glenoid. Reviewed, dictated and finalized at location B. IMPRESSION: 1. Anterior and inferior dislocation of the humeral head with respect to the gl enoid.
--- NOTE | ~2023-01-29 | XR_ITS ---
EXAMINATION: XR shoulder RT 1V INDICATION: Reduction attempt TECHNIQUE: Portable AP right shoulder at 1617 hours COMPARISON: 1614 hours FINDINGS: There is persistent anterior and inferior dislocation of the humeral head with respect to t he glenoid. No fracture is identified. There is osteoarthritis at the acromioclavicular joint. IMPRESSION: 1. Persistent anterior and inferior dislocation of the humeral head with respect to the glenoid. Reviewed, dictated and finalized at location B. IMPRESSION: 1. Persistent anterior and inferior dislocation of the humeral head with respec t to the glenoid.
--- NOTE | ~2023-01-29 | XR_ITS ---
EXAMINATION: XR shoulder RT 1V INDICATION: Reduction attempt TECHNIQUE: Portable AP right shoulder at 1614 hours COMPARISON: 1533 hours FINDINGS: There is persistent anterior and inferior dislocation of the humeral head with respect to t he glenoid. No definite fracture is identified. IMPRESSION: 1. Persistent anterior and inferior dislocation of the humeral head. Reviewed, dictated and finalized at location B.
--- NOTE | ~2023-01-29 | XR_ITS ---
EXAMINATION: XR shoulder RT min 2V INDICATION: Right shoulder pain TECHNIQUE: Three views of the right shoulder are submitted. COMPARISON: None FINDINGS: There is anterior and inferior dislocation of the humeral head with respect to the glenoid. An EKG lead projects over the glenoid limiting sensitivity for underlying fracture. There is moderat e osteoarthritis of the acromioclavicular joint. Soft tissues are unremarkable. IMPRESSION: 1. Anterior and inferior dislocation of the humeral head with respect to the glenoid. Sensitivity for underlying fracture is limited by EKG overlying the glenoid. Reviewed, dictated and finalized at location B. IMPRESSION: 1. Anterior and inferior dislocation of the humeral head with respect to the gl enoid. Sensitivity for underlying fracture is limited by EKG overlying the vanessa oid.
--- NOTE | ~2023-01-29 | XR_ITS ---
EXAMINATION: XR femur LT min 2V INDICATION: Left leg pain TECHNIQUE: Two views of the left femur are obtained on four radiographs COMPARISON: None available FINDINGS: The bones are osteopenic which limits the sensitivity for fracture however none is seen. Th ere is advanced osteoarthritis of the knee. Calcified atherosclerosis is noted. IMPRESSION: 1. No acute osseous abnormality. 2. Advanced osteoarthritis at the knee. Reviewed, dictated and finalized at location L.
--- NOTE | 2023-01-29 15:11 | ECG_ITS ---
Measurements Intervals Venus Rate: 49 P: AL: 0 QRS: 264 QRSD: 189 T: 81 QT: 557 QTc: 504 Interpretive Statements ELECTRONIC VENTRICULAR PACEMAKER UNDERLYING RHYTH PROBABLY ATRIAL FIBRILLATION BORDERLINE ST-T WAVE ABNORMALITY- INFERIOR LEADS BASELINE ARTIFACT- I, II, III, AVR, AVL, V1-V2 NO FURTHER INTERPRETATION IS POSSIBLE ABNORMAL ECG COMPARED TO ECG 01/08/2023 12:51:16 VENTRICULAR PACEMAKER NOW PRESENT Electronically Signed On 01-29-2023 15:41:52 CDT by Matias Stiles D.O.
[2023-01-29 15:37] LABS: Basophils Percent Auto 0.3 % (0.2-1.2); Eosinophils Absolute Auto 0.3 K/mm3 (0-0.3); Eosinophils Percent Auto 2.9 % (0-4.4); Hematocrit 44.3 % (37.0-47.0); Hemoglobin 13.6 g/dL (12.0-15.0); Immature Granulocyte Absolute 0.04 K/mm3 (0.00-0.031); Immature Granulocyte Percent A 0.3 % (0-0.5); Lymphocytes Absolute Auto 1.45 K/mm3 (0.9-3.2); Lymphocytes Percent Auto 12.3 % (18.3-44.2); Mean Corpuscular HGB Conc 30.7 g/dl (32-36); Mean Corpuscular Hemoglobin 29.8 pg (26-34); Mean Corpuscular Volume 96.9 fl (80-100); Mean Platelet Volume 10.9 fl (7.4-10.4); Monocytes Absolute Auto 0.6 K/mm3 (0.1-0.6); Monocytes Percent Auto 5.3 % (2.6-8.5); Neutrophils Absolute Auto 9.3 K/mm3 (1.3-6.7); Neutrophils Percent Auto 78.9 % (45.5-73.1); Nucleated Red Blood Cells Absolute Auto 0.2 K/mm3 (0.0-0.012); Nucleated Red Blood Cells Perc 1.4 % (0.0-0.2); Platelet Count Result 176 k/mm3 (150-375); Red Blood Count 4.57 M/mm3 (4.2-5.4); Red Cell Distribution Width 18.6 % (11.5-14.5); White Blood Count 11.8 K/mm3 (4.5-10.0)
[2023-01-29 15:43] LABS: Appearance Urine Clear (Clear); Bacteria Urine None Seen /hpf; Bilirubin Urine Negative (Negative); Blood Urine 1+ (Negative); Color Urine Yellow (Yellow); Glucose Urine UA 3+ mg/dL (Negative); Ketones Urine Negative (Negative); Leukocyte Esterase Ur Negative LEU/UL (Negative); Nitrate Urine Negative (Negative); Protein Urine 2+ mg/dL (Negative); RBC Urine 0-2 /hpf (0-2); Specific Grav Ur 1.015 (1.001-1.035); Squamous Epithelial Cell Urine None seen /hpf (Few); WBC Urine 0-5 /hpf
[2023-01-29 15:45] LABS: Add Urine Microscopic? YES
[2023-01-29 15:48] LABS: Alanine Aminotransferase 606 U/L (6-35); Albumin Level 3.6 g/dL (3.5-5.1); Alkaline Phosphatase 93 U/L (38-126); Anion Gap 5 mmol/L (8-16); Aspartate Amino Transferase 147 U/L (14-36); Bilirubin,Total 2.6 mg/dL (0.2-1.3); Blood Urea Nitrogen 47 mg/dL (7-17); Calcium 8.5 mg/dL (8.4-10.2); Carbon Dioxide 34 mmol/L (22-30); Chloride 98 mmol/L (98-107); Estimated CRCL calculation 45 ml/min; Estimated Glomerular Filt Rate 48; Glucose 113 mg/dL (65-110); Potassium 3.8 mmol/L (3.4-5.0); Sodium 137 mmol/L (137-145)
[2023-01-29] MEDS: MORPHINE SULFATE (*CRX) 4 MG/ML INJ (16:07)
[2023-01-29] MEDS: LORazepam INJ (*CRX) 2 MG/ML VIAL (16:13)
--- NOTE | 2023-01-29 16:13 | ED.GENADULT ---
HPI - General Adult General Chief complaint: Fall Stated complaint: fall Time Seen by Provider: 01/29/23 15:09 History of Present Illness HPI narrative: Patient is a 77-year-old female who presents ER with right shoulder pain. Patient had a fall while trying to get out of bed yesterday and fell onto her right side. She did not strike her head or lose consciousness. She developed some shoulder pain but took Tylenol and went to bed. When she woke up today she was still having the right shoulder pain and it progressed to the point that she felt she should be evaluated more. No numbness or tingling to the affected extremity. She has pain with any type of range of motion Related Data Home Medications Medication Instructions Recorded Confirmed calcitriol 0.25 mcg capsule 0.25 mcg PO DAILY 12/20/19 01/08/23 diltiazem HCl 180 mg 180 mg PO HS 12/20/19 01/08/23 capsule,extended release 24 hr (Cardizem CD) fluticasone propionate 50 2 spray intranasal PRN PRN 12/20/19 01/08/23 mcg/actuation nasal Congestion spray,suspension hydrocodone 5 mg-acetaminophen 325 1 tablet PO Q6H PRN Pain 12/20/19 01/08/23 mg tablet hydroxyzine pamoate 50 mg capsule 50 mg PO Q6-8H PRN Itching 12/20/19 01/08/23 letrozole 2.5 mg tablet 2.5 mg PO DAILY 12/20/19 01/08/23 allopurinol 100 mg tablet 200 mg PO DAILY 01/20/22 01/08/23 atorvastatin 10 mg tablet 10 mg PO HS 01/20/22 01/08/23 ergocalciferol (vitamin D2) 1,250 1,250 mcg PO WEEKLY 01/20/22 01/08/23 mcg (50,000 unit) capsule (Vitamin D2) fluticasone fur. 100 mcg-umeclid 1 inh inhalation DAILY 01/20/22 01/08/23 62.5 mcg-vilant 25 mcg inhalat.powder (Trelegy Ellipta) gabapentin 600 mg tablet 1,200 mg PO HS 01/08/23 01/08/23 gabapentin 600 mg tablet 600 mg PO DAILY 01/08/23 01/08/23 latanoprost 0.005 % eye drops 1 drp EACH EYE HS 01/08/23 01/08/23 Allergies Allergy/AdvReac Type Severity Reaction Status Date / Time rivaroxaban AdvReac Intermediate Other Verified 01/29/23 15:13 Review of Systems Review of Systems: All systems reviewed & are unremarkable except as noted in HPI and below Constitutional: Constitutional: Denies chills, Denies fatigue and Denies fever(s) ENT: Reports system reviewed and no additional complaints, except as documented Cardiovascular: Cardiovascular: Reports no additional cardiovascular complaints Respiratory: Respiratory: Reports no additional respiratory complaints Gastrointestinal: Gastrointestinal: Reports no additional gastrointestinal complaints Musculoskeletal: Musculoskeletal: Denies back pain, Reports arthralgias, Reports joint swelling and Denies muscle cramps Neurologic: Reports system reviewed and no additional complaints, except as documented [facility] Past Medical History Medical History Macdonald esophagus Cancer of right breast (~2017) Status post lumpectomy, chemotherapy, and radiation. Chronic anticoagulation Coffee ground emesis Duodenal ulcer Hypertension Iron deficiency anemia Mitral stenosis Morbid obesity Paroxysmal atrial fibrillation Partial gastric outlet obstruction Pulmonary HTN severe - PA 62 mmHg Surgical History Surgical History History of fusion of cervical spine C5-C6 fusion after fracture. History of hernia repair History of lumpectomy of right breast For breast cancer. History of permanent cardiac pacemaker placement History of total hysterectomy with bilateral salpingo-oophorectomy (BSO) Status post debridement Left heel wound debridement. Family History Family History Father Congestive heart failure Heart disease Sibling Diabetes mellitus Mother Breast cancer Sibling Heart disease Social History Social History Social History: The patient is originally from [facility]
--- NOTE | 2023-01-29 17:18 | PC.NURSE ---
1704: 40mg propofol IVP given by Dr. Galindo. Procedure began. 1706: xray called to room. 1707: Shoulder immobilizer placed on patient.
[2023-01-29] MEDS: SODIUM CHLORIDE 0.9% IV 1,000 ML 999 ML (17:55)
[2023-01-29 19:27] LABS: Creatine Kinase 321 U/L (30-135)
--- NOTE | 2023-01-29 20:27 | ADMGEN ---
This patient, Ashley Croft, was admitted to [facility] S[facility] Room 315-01. Patient/family oriented to hospital policies and general routines including ID bracelet, bed and alarms, visiting hours, pain management, procedures, bathroom and other care routines, personal items, smoking policy, room service/diet, and visiting hours. Information on how to activate the Rapid Response Team has been discussed. Patient/Family are encouraged to report perceived risks to care and to ask questions if they do not understand what they are told or what they should do.
--- NOTE | 2023-01-29 23:12 | PM.IMHP ---
H&P: HPI History of Present Illness Date/Time: 01/29/23 23:12 Chief Complaint: patient was brought to the ER for evaluation with right shoulder pain after falling while getting out of bed Narrative: She is a very unfortunate 77 years old white male with multiple chronic medical issues who has recently been discharged from the hospital. Please see detailed discharge summary as below: DS: Summary ... 01/25/2023 Hospital Course Hospital Course: This 77-year-old female with history of? morbid obesity, sleep disordered breathing on no treatment, history of severe COPD by pulmonary function testing, chronic hypoxemia on supplemental oxygen at home, history of congestive heart failure, status post pacemaker implantation, secondary pulmonary hypertension related to left ventricular diastolic dysfunction with evidence of? severely enlarged atrium on echocardiogram and also related to chronic hypoxemia resulting from sleep apnea/COPD presented with shortness of breath.? She was found to have bilateral pleural effusions likely related to congestive heart failure.? Patient seems to be improving on current regimen of diuretics and other medications for congestive heart failure and also on BiPAP support.? Patient also received treatment for possible COPD exacerbation with steroids and short-acting bronchodilators, currently off steroids.? She is on maintenance bronchodilators for COPD a short-acting bronchodilators for p.r.n. use.? Efforts are underway to place patient on chronic ventilatory support at home given her hypercapnic respiratory failure.? She seems to be tolerating BiPAP well.? Apnea link study on current BiPAP settings and supplemental oxygen at 32% showed no significant oxyhemoglobin desaturation. Pleural fluid cultures negative so far.? Pleural fluid albumin and total protein both low, consistent with a transudate. Chest x-ray still showing some congestion but no pleural effusions.? On Bumex, spironolactone, Jardiance per Cardiology. Plan:?home ventilator has not been approved.? Insurance company willing to cover just plain BiPAP at home.? Will try generic BiPAP 14/10 tonight, backup rate 12, 3 L oxygen bled in.? ApneaLink study tonight.? Patient being discharged home with BiPAP Patient was trying to get out of the bed and fell on her right side, developed shoulder pain but she took some Tylenol and went to bed. She does not did not hit her head or lose consciousness. When she woke up, she was still having right shoulder pain which worsened to the point that she had to be brought to the ER for evaluation. Workup was done which showed right shoulder dislocation. She was given pain meds for control of her symptoms. She is being admitted for orthopedics evaluation, PT OT and case coordination consults for rehab placement. Review of Systems Review of Systems: she denies any chest pain, palpitations, fever rigor chills, nausea vomiting, dizziness or loss of consciousness All systems reviewed & are unremarkable except as noted in HPI and below PMFSH Past Medical History Medical History (Updated 01/30/23 @ 05:46 by Juwan Berger MD) At high risk for falls Macdonald esophagus Cancer of right breast (~2017) Status post lumpectomy, chemotherapy, and radiation. Chronic anticoagulation Coffee ground emesis Duodenal ulcer Hypertension Impaired ambulation Iron deficiency anemia Mitral stenosis Morbid obesity Paroxysmal atrial fibrillation Partial gastric outlet obstruction Pulmonary HTN severe - PA 62 mmHg Surgical History Surgical History History of fusion of cervical spine C5-C6 fusion after fracture. History of hernia repair History of lumpectomy of right breast For breast cancer. History of permanent cardiac pacemaker placement History of total hysterectomy with bilateral salpingo-oophorectomy (BSO) Status post debridement Left heel wound debridement. Family History Family Histor
[2023-01-30] MEDS: FLUTICASONE/UMECLIDIN/VILANTER 100-62.5-25 MCG ELLIPTA 1 PUFF INHALATION (08:26)
[2023-01-30 08:27] VITALS: O2SAT 96
[2023-01-30] MEDS: BUMETANIDE 1 MG TABLET 2 MG PO (09:05)
[2023-01-30] MEDS: MORPHINE SULFATE (*CRX) 4 MG/ML INJ 2 MG IV PUSH ×2 (09:06→18:47)
[2023-01-30] MEDS: SPIRONOLACTONE 25 MG TABLET 50 MG PO (09:06)
--- NOTE | 2023-01-30 11:27 | PCPTNOTE ---
Attempted to see for physical therapy evaluation. Per patient, her family lifts her from supine to the EOB, then they use a mechanics sit to stand lift to stand her and transfer her to her wheelchair. There are no skilled therapy needs at this time. Orders will be discharged.
[2023-01-30 11:53] LABS: Glucose Point of Care 97 mg/dl (65-105)
--- NOTE | 2023-01-30 12:17 | PM.PNORT ---
Subjective Subjective Date/Time Seen: 01/30/23 12:17 Objective Data Vital Signs Vital Signs: Vital Signs - 24 hr 01/29/23 15:03 01/29/23 16:08 01/29/23 17:05 Temperature 36.6 C 36.2 C L Pulse Rate 60 78 Pulse Rate [Monitor] 64 Respiratory Rate 24 H 20 19 Blood Pressure 127/110 H 156/105 H Blood Pressure [Left Arm] 138/72 Pulse Oximetry 92 93 100 Oxygen Delivery Nasal Cannula Bag Valve Mask Oxygen Flow Rate 2 15 Fraction of Inspired Oxygen 01/29/23 17:03 01/29/23 17:10 01/29/23 17:06 Temperature 36.2 C L 36.2 C L 36.2 C L Pulse Rate Pulse Rate [Monitor] 64 70 70 Respiratory Rate 19 25 H 16 Blood Pressure Blood Pressure [Left Arm] 138/73 126/106 H 126/106 H Pulse Oximetry 100 100 100 Oxygen Delivery Bag Valve Mask High Flow Nasal Cannula Nasal Cannula Oxygen Flow Rate 2 2 Fraction of Inspired Oxygen 01/29/23 17:15 01/29/23 17:30 01/29/23 15:07 Temperature 36.3 C L 36.3 C L Pulse Rate 59 L Pulse Rate [Monitor] 67 66 Respiratory Rate 18 24 H 13 Blood Pressure Blood Pressure [Left Arm] 146/73 H 143/76 H Pulse Oximetry 98 96 89 L Oxygen Delivery Nasal Cannula Nasal Cannula Oxygen Flow Rate 2 2 Fraction of Inspired Oxygen 01/29/23 15:15 01/29/23 15:30 01/29/23 15:46 Temperature Pulse Rate 56 L 58 L 59 L Pulse Rate [Monitor] Respiratory Rate 20 16 19 Blood Pressure Blood Pressure [Left Arm] Pulse Oximetry 95 Oxygen Delivery Oxygen Flow Rate Fraction of Inspired Oxygen 01/29/23 16:03 01/29/23 16:20 01/29/23 16:38 Temperature Pulse Rate 64 56 L Pulse Rate [Monitor] Respiratory Rate 22 H 23 H Blood Pressure Blood Pressure [Left Arm] Pulse Oximetry 99 97 97 Oxygen Delivery Oxygen Flow Rate Fraction of Inspired Oxygen 01/29/23 16:53 01/29/23 16:59 01/29/23 17:00 Temperature Pulse Rate 65 56 L 67 Pulse Rate [Monitor] Respiratory Rate 25 H 24 H 23 H Blood Pressure 138/73 Blood Pressure [Left Arm] Pulse Oximetry 98 Oxygen Delivery Oxygen Flow Rate Fraction of Inspired Oxygen 01/29/23 17:14 01/29/23 17:24 01/29/23 17:32 Temperature Pulse Rate 67 65 67 Pulse Rate [Monitor] Respiratory Rate 19 16 18 Blood Pressure 140/88 Blood Pressure [Left Arm] Pulse Oximetry 100 98 98 Oxygen Delivery Oxygen Flow Rate Fraction of Inspired Oxygen 01/29/23 17:42 01/29/23 17:45 01/29/23 20:36 Temperature 36.3 C L Pulse Rate 62 66 85 Pulse Rate [Monitor] Respiratory Rate 22 H 22 H 24 H Blood Pressure 158/75 H 120/82 Blood Pressure [Left Arm] Pulse Oximetry 100 99 92 Oxygen Delivery Oxygen Flow Rate Fraction of Inspired Oxygen 01/29/23 22:00 01/29/23 23:02 01/30/23 08:27 Temperature 36.7 C Pulse Rate 71 90 Pulse Rate [Monitor] Respiratory Rate 22 H 20 Blood Pressure 157/72 H Blood Pressure [Left Arm] Pulse Oximetry 94 93 96 Oxygen Delivery CPAP Nasal Cannula Oxygen Flow Rate 2 2 Fraction of Inspired Oxygen 28 Intake/Output Intake/Output: Intake & Output 01/27/23 01/28/23 01/29/23 01/30/23 23:59 23:59 23:59 23:59 Intake Total 1000 Output Total 400 Balance 1000 -400 Meds/Results Medications: Active Medications Generic Name Dose Route Start Last Admin Trade Name Freq PRN Reason Stop Dose Admin Acetaminophen 650 mg 01/29/23 17:49 Acetaminophen 325 Mg Tablet PO Q4H PRN Mild Pain (1-3) or Fever Hydrocodone Bitart/Acetaminophen 1 tab 01/30/23 05:47 Hydrocodone/Acetaminophen (*Crx) 5-325 Mg Tablet PO Q6H PRN Pain Albuterol 2 puff 01/30/23 05:47 Albuterol Sulfate (*Sp) Aerosol 1 Puff INHALATION QIDRT PRN Shortness Of Breath Allopurinol 200 mg 01/30/23 08:00 01/30/23 09:11 Allopurinol 100 Mg Tablet PO Not Given DAILY@0800 GREG Apixaban 5 mg 01/30/23 09:00 01/30/23 09:12 Apixaban 5 Mg Tablet PO Not Given Q12HR GREG Atorvastatin C
--- NOTE | 2023-01-30 12:18 | PM.IMPN ---
Progress Note: A&P Assessment and Plan (1) Dislocation closed, shoulder: Code(s): S43.006A - Unspecified dislocation of unspecified shoulder joint, initial encounter Status: Acute Assessment and Plan: Right shoulder mobilizer status post reduction, distal capillary refill motor sensation and radial pulses present. Patient is able to use the hand when it is at rest on her body. Patient has Carlos lift at home and is wishing to return home (2) COPD (chronic obstructive pulmonary disease): Code(s): J44.9 - Chronic obstructive pulmonary disease, unspecified Status: Acute Assessment and Plan: stable, oxygen during the day than BiPAP at night (3) Hypoxia: Code(s): R09.02 - Hypoxemia Status: Acute Assessment and Plan: see 2. (4) Chronic anticoagulation: Code(s): Z79.01 - intermediate card tender (current) use of anticoagulants Status: Acute Assessment and Plan: Stable, continue home medication (5) Paroxysmal atrial fibrillation: Code(s): I48.0 - Paroxysmal atrial fibrillation Status: Acute Assessment and Plan: Appears in sinus rhythm now as patient has regular rhythm to auscultation (6) Hypertension: Code(s): I10 - Essential (primary) hypertension Status: Acute Assessment and Plan: Stable, reviewed 01/30 (7) Morbid obesity: Code(s): E66.01 - Morbid (severe) obesity due to excess calories Status: Acute Assessment and Plan: Unchanged, partially bedbound at home (8) History of permanent cardiac pacemaker placement: Code(s): Z95.0 - Presence of cardiac pacemaker Status: Acute Assessment and Plan: Stable (9) Impaired ambulation: Code(s): R26.2 - Difficulty in walking, not elsewhere classified Status: Acute Assessment and Plan: Mostly bed confined, fell when using Sit to Stand, left hip pain CT shows osteoarthritis no fracture (10) At high risk for falls: Code(s): Z91.81 - History of falling Status: Acute Assessment and Plan: See 9 Plan Right shoulder immobilizer in place. PT OT was recommended and ordered but they are unable to work with patient as she is Carlos lift at home and nonweightbearing right upper extremity patient wants to go home rather than facility placement. Time Spent With Patient Time with patient: 25 - 35 minutes Subjective Date/time seen: 01/30/23 12:18 Interval history: Patient admitted status post right shoulder dislocation. Shoulder was relocated in the emergency department after several attempts. Patient is to be nonweightbearing right upper extremity. She is mostly bed confined/wheelchair confined at home and has caregiver assistance. Patient wishes to return home a rather than a facility. She was previously admitted for difficulty breathing, currently on oxygen and during the day and BiPAP at night. Patient states she is doing well with that. She has Carlos lift capacity at home. Review of Systems Review of Systems: All systems reviewed & are unremarkable except as noted in HPI and below Exam Narrative: PHYSICAL EXAMINATION: General physical exam: morbidly obese white female lying in bed, she appears to be having pain in right shoulder, right shoulder immobilizer in place Head/eyes: Atraumatic, EOMI, PERRLA ENT: Moist mucous membranes, nasal passages clear Neck: Supple, full range of motion, trachea midline CVS: S1 + S2, regular rate and rhythm, no murmurs Respiratory: Bilaterally decreased air entry in both lung finch, mild B/L crackles, symmetric chest expansion, no distress Abdomen: Soft, non-tender, bowel sounds positive, no organomegaly, obese Extremities: No clubbing, no cyanosis, no edema, no calf tenderness Musculoskeletal: Moves all, severely restricted range of motion of right shoulder secondary to dislocation, no muscle spasms. Distal capillary refill motor and sensation intact Skin: Warm, dry,
--- NOTE | 2023-01-30 12:54 | PM.CNOR ---
Assessment and Plan Assessment and plan (1) Dislocation closed, shoulder: Qualifiers: Encounter type: initial encounter Laterality: left Qualified Code(s): S43.005A - Unspecified dislocation of left shoulder joint, initial encounter Code(s): S43.006A - Unspecified dislocation of unspecified shoulder joint, initial encounter Status: Acute Assessment and Plan: History, exam and radiographs reviewed with the patient. Post reduction films reviewed. No evidence of fracture at this time. Discussed condition, nature, etiology and course of natural history. Conservative treatment options reviewed as well as the risks and benefits of each. Recommended shoulder immobilizer to prevent recurrent dislocation. Patient should be nonweightbearing of the right upper extremity at this time. PT and OT for assistance with transfers and bed mobility. Patient is nonambulatory at baseline. Will need modifications with transferring. Patient will likely need inpatient fdc due to complexity of care and immobility. No surgical indication at this time for the right shoulder. We will continue to monitor. (2) Left hip pain: Code(s): M25.552 - Pain in left hip Status: Acute Assessment and Plan: Patient reports left thigh and groin pain status post fall. She has pain into the left lower leg and foot and ankle. Patient is nonambulatory at baseline. We will obtain radiographs of the left hip and pelvis as well as the left femur. Patient to maintain current weight-bearing status of nonweightbearing bilateral lower extremities. Pain control. Ice. Patient will require assistance with all hygiene. We will continue to monitor pending radiographic results. Plan Discussed assessment, radiographic findings and current plan of care with attending physician who was consulted for this patient's case, Dr. Lane. Agrees with current plan as indicated above. No further recommendations at this time. History of Present Illness HPI Consult date: 01/30/23 Chief complaint: Shoulder Dislocation Narrative: This is a 77-year-old female with multiple medical comorbidities and recent hospitalization here [place]. She was recently discharged home and has in-home caregivers. Per the patient, she was being transferred via [employer] to the bathroom. They thought the chair was back far enough and it unfortunately was not. She fell to the ground. EMS was called to assist in getting her back up at which point she believes her arm was dislocated. She was transferred to the emergency room for further evaluation. On radiographs in the ER of the right shoulder a dislocation was seen. Relocation was attempted x2 and the 2nd attempt was successful. Orthopedic consult requested by the emergency room physician for further evaluation. Patient is also complaining of left lower extremity pain. Patient is nonambulatory at baseline. Review of Systems Review of Systems: All systems reviewed & are unremarkable except as noted in HPI and below PMFSH Past Medical History Medical History (Updated 01/30/23 @ 13:00 by NAY Oliveros) At high risk for falls Macdonald esophagus Cancer of right breast (~2017) Status post lumpectomy, chemotherapy, and radiation. Chronic anticoagulation Coffee ground emesis Duodenal ulcer Hypertension Impaired ambulation Iron deficiency anemia Left hip pain Mitral stenosis Morbid obesity Paroxysmal atrial fibrillation Partial gastric outlet obstruction Pulmonary HTN severe - PA 62 mmHg Surgical History Surgical History History of fusion of cervical spine C5-C6 fusion after fracture. History of hernia repair History of lumpectomy of right breast For breast cancer. History of permanent cardiac pacemaker placement History of total hysterectomy with bilateral salpingo-oophorectomy (BSO) Status post debridement Left heel wound debrid
[2023-01-30 14:00] VITALS: BP 153/82; PULSE 97; RESP 20; TEMP 36.9; O2SAT 98
--- NOTE | 2023-01-30 15:55 | PCOTNOTE ---
Attempted to see pt. for occupational therapy evaluation. Pt. needs to urinate and would prefer to use Purewick as she does not feel ready to mobilize from bed as urgently as she needs to go. Nursing updated and came to room. Pt. stating she would prefer to start therapy tomorrow.
[2023-01-30 17:22] LABS: Glucose Point of Care 108 mg/dl (65-105)
[2023-01-30] MEDS: hydrOXYzine pamoate 25 MG CAPSULE 50 MG PO (18:51)
[2023-01-30 20:10] VITALS: PULSE 74; RESP 16; O2SAT 98
[2023-01-30] MEDS: APIXABAN 5 MG TABLET PO (20:34)
[2023-01-30] MEDS: LORATADINE 10 MG TABLET PO (20:34)
[2023-01-30] MEDS: PRAMIPEXOLE 0.5 MG TABLET PO (20:34)
[2023-01-30] MEDS: dilTIAZem HCL CD 180 MG CAP.24HR PO (20:34)
[2023-01-30] MEDS: GABAPENTIN 400 MG CAPSULE 1200 MG PO (20:34)
[2023-01-30] MEDS: LATANOPROST 0.005% OP SOLN 2.5 ML BTL 1 DROP EACH EYE (20:35)
[2023-01-30] MEDS: ATORVASTATIN 10 MG TABLET PO (20:35)
[2023-01-30] MEDS: HYDROcodone/acetaminophen (*CRX) 5-325 MG TABLET 1 TAB PO (20:49)
[2023-01-30 22:00] VITALS: BP 145/81; PULSE 74; RESP 16; TEMP 36.8; O2SAT 98
[2023-01-31] MEDS: HYDROcodone/acetaminophen (*CRX) 5-325 MG TABLET 1 TAB PO ×3 (04:40→18:17)
[2023-01-31] MEDS: hydrOXYzine pamoate 25 MG CAPSULE 50 MG PO ×2 (05:49→17:01)
[2023-01-31 06:00] VITALS: BP 153/68; PULSE 60; RESP 16; TEMP 36.4; O2SAT 94
[2023-01-31 07:14] LABS: Basophils Absolute Auto 0.1 K/mm3 (0.0-0.1); Basophils Percent Auto 0.7 % (0.2-1.2); Eosinophils Absolute Auto 0.4 K/mm3 (0-0.3); Eosinophils Percent Auto 4.7 % (0-4.4); Hematocrit 42.4 % (37.0-47.0); Hemoglobin 12.4 g/dL (12.0-15.0); Immature Granulocyte Absolute 0.03 K/mm3 (0.00-0.031); Immature Granulocyte Percent A 0.3 % (0-0.5); Lymphocytes Absolute Auto 1.51 K/mm3 (0.9-3.2); Lymphocytes Percent Auto 16.4 % (18.3-44.2); Mean Corpuscular HGB Conc 29.2 g/dl (32-36); Mean Corpuscular Volume 102.7 fl (80-100); Mean Platelet Volume 10.5 fl (7.4-10.4); Monocytes Absolute Auto 0.6 K/mm3 (0.1-0.6); Monocytes Percent Auto 6.4 % (2.6-8.5); Neutrophils Absolute Auto 6.6 K/mm3 (1.3-6.7); Neutrophils Percent Auto 71.5 % (45.5-73.1); Nucleated Red Blood Cells Absolute Auto 0.1 K/mm3 (0.0-0.012); Nucleated Red Blood Cells Perc 0.9 % (0.0-0.2); Platelet Count Result 144 k/mm3 (150-375); Red Blood Count 4.13 M/mm3 (4.2-5.4); Red Cell Distribution Width 18.8 % (11.5-14.5); White Blood Count 9.2 K/mm3 (4.5-10.0)
[2023-01-31 07:29] LABS: Anion Gap 10 mmol/L (8-16); Blood Urea Nitrogen 33 mg/dL (7-17); Carbon Dioxide 29 mmol/L (22-30); Chloride 99 mmol/L (98-107); Estimated CRCL calculation 56 ml/min; Estimated Glomerular Filt Rate > 60; Glucose 85 mg/dL (65-110); Magnesium 2.7 mg/dL (1.6-2.3); Phosphorus 3.8 mg/dL (2.5-4.5); Potassium 3.4 mmol/L (3.4-5.0); Sodium 138 mmol/L (137-145)
[2023-01-31] MEDS: MORPHINE SULFATE (*CRX) 4 MG/ML INJ 2 MG IV PUSH (07:47)
[2023-01-31 07:57] LABS: Glucose Point of Care 105 mg/dl (65-105)
--- NOTE | 2023-01-31 08:33 | PCOTNOTE ---
Attempted OT eval. Patient with respiratory then getting getting an US guided IV. Will continue to attempt.
[2023-01-31 08:34] VITALS: PULSE 62; RESP 20; O2SAT 94
[2023-01-31] MEDS: FLUTICASONE/UMECLIDIN/VILANTER 100-62.5-25 MCG ELLIPTA 1 PUFF INHALATION (08:34)
--- NOTE | 2023-01-31 08:41 | PM.IMPN ---
Progress Note: A&P Assessment and Plan (1) Dislocation closed, shoulder: Qualifiers: Encounter type: initial encounter Laterality: left Qualified Code(s): S43.005A - Unspecified dislocation of left shoulder joint, initial encounter Code(s): S43.006A - Unspecified dislocation of unspecified shoulder joint, initial encounter Status: Acute Assessment and Plan: Right shoulder mobilizer status post reduction, distal capillary refill motor sensation and radial pulses present. Patient is able to use the hand when it is at rest on her body. Patient has Carlos lift at home and is wishing to return home (2) COPD (chronic obstructive pulmonary disease): Code(s): J44.9 - Chronic obstructive pulmonary disease, unspecified Status: Acute Assessment and Plan: stable oxygen during the day than BiPAP at night (3) Hypoxia: Code(s): R09.02 - Hypoxemia Status: Acute Assessment and Plan: see 2. (4) Chronic anticoagulation: Code(s): Z79.01 - intermediate (current) use of anticoagulants Status: Acute Assessment and Plan: Stable, continue home medication (5) Paroxysmal atrial fibrillation: Code(s): I48.0 - Paroxysmal atrial fibrillation Status: Acute Assessment and Plan: Appears in sinus rhythm now as patient has regular rhythm to auscultation (6) Hypertension: Code(s): I10 - Essential (primary) hypertension Status: Acute Assessment and Plan: Stable, reviewed (7) Morbid obesity: Code(s): E66.01 - Morbid (severe) obesity due to excess calories Status: Acute Assessment and Plan: Unchanged, partially bedbound at home (8) History of permanent cardiac pacemaker placement: Code(s): Z95.0 - Presence of cardiac pacemaker Status: Acute Assessment and Plan: Stable (9) Impaired ambulation: Code(s): R26.2 - Difficulty in walking, not elsewhere classified Status: Acute Assessment and Plan: Mostly bed confined, fell when using Sit to Stand, left hip pain CT shows osteoarthritis no fracture (10) At high risk for falls: Code(s): Z91.81 - History of falling Status: Acute Assessment and Plan: See 9 Subjective Date/time seen: 01/31/23 08:41 Interval history: This is a 77 year old female with a PMH of sleep disordered breathing on no treatment, history of severe COPD by pulmonary function testing, chronic hypoxemia on supplemental oxygen at home, history of congestive heart failure, status post pacemaker implantation, secondary pulmonary hypertension related to left ventricular diastolic dysfunction with evidence of?severely enlarged atrium on echocardiogram and also related to chronic hypoxemia resulting from sleep apnea/COPD. She was recently discharged on 01/25/23 with home BiPAP. On 01/29 she presented to the ED with complaints of shoulder pain after falling while getting out of bed. She was found to have a right shoulder dislocation which was reduced in the ED. Orthopedics were consulted. No surgery is needed for her right arm, she is to be non-weight bearing. They also requested CT of her left hip due to complaints of pain s/p fall. CT imaging shows mild left hip and sacroiliac osteoarthritis but not acute osseous abnormality. PT and OT were requested to see the patent however, she is a Carlos lift at baseline and is now non-weightbearing to her right arm. Patient lives with family and has multiple assist devices including sit to stand and carlos lift. She also receives in home services 4-8 hours a day. She is declining placement and would like to return home. 01/31: Review of Systems Review of Systems: All systems reviewed & are unremarkable except as noted in HPI and below Exam Narrative: General: well appearing, well developed, well nourished, appears stated age. HEENT: normocephalic, atraumatic. Mucous membranes moist. EOMI, PERRLA, bila
[2023-01-31 09:00] VITALS: O2SAT 94
[2023-01-31] MEDS: POTASSIUM CHLORIDE 20 MEQ ER TABLET PO (09:06)
[2023-01-31] MEDS: BUMETANIDE 1 MG TABLET 2 MG PO (09:09)
[2023-01-31] MEDS: FERROUS SULFATE 325 MG TABLET DR BY MOUTH (09:09)
[2023-01-31] MEDS: calcitrioL 0.25 MCG CAPSULE PO (09:09)
[2023-01-31] MEDS: allopurinoL 100 MG TABLET 200 MG PO (09:09)
[2023-01-31] MEDS: SPIRONOLACTONE 25 MG TABLET 50 MG PO (09:09)
[2023-01-31] MEDS: GABAPENTIN 300 MG CAPSULE 600 MG PO (09:09)
[2023-01-31] MEDS: LETROZOLE (*CHEMO) 2.5 MG TABLET PO (09:09)
[2023-01-31] MEDS: EMPAGLIFLOZIN 10 MG TABLET PO (09:09)
[2023-01-31] MEDS: APIXABAN 5 MG TABLET PO (09:09)
[2023-01-31] MEDS: PANTOPRAZOLE 40 MG TABLET PO (09:09)
[2023-01-31] MEDS: ACETAMINOPHEN 325 MG TABLET 650 MG PO ×2 (09:11→14:24)
--- NOTE | 2023-01-31 10:13 | PM.PNORT ---
Progress Note: A&P Assessment and Plan (1) Dislocation closed, shoulder: Qualifiers: Encounter type: initial encounter Laterality: left Qualified Code(s): S43.005A - Unspecified dislocation of left shoulder joint, initial encounter Code(s): S43.006A - Unspecified dislocation of unspecified shoulder joint, initial encounter Status: Acute Assessment and Plan: History, exam and radiographs reviewed with the patient. Post reduction films reviewed. No evidence of fracture at this time. Discussed condition, nature, etiology and course of natural history. Conservative treatment options reviewed as well as the risks and benefits of each. Recommended shoulder immobilizer to prevent recurrent dislocation. Patient should be nonweightbearing of the right upper extremity at this time. PT and OT for assistance with transfers and bed mobility. Patient is nonambulatory at baseline. Will need modifications with transferring. Patient refusing SNF. Will need adequate home care available as transfers are limited with NWB and sling of the RUE x6 weeks. Follow up in the outpatient orthopedic clinic in 6 weeks. Dispo pending medical stability and care coordination. (2) Left hip pain: Code(s): M25.552 - Pain in left hip Status: Acute Assessment and Plan: Radiographs and hip CT negative for acute fracture. Pain control. Mobility as tolerated. No further workup recommended. Plan Discussed assessment, radiographic findings and current plan of care with attending physician who was consulted for this patient's case, Dr. Lane. Agrees with current plan as indicated above. No further recommendations at this time. Subjective Subjective Date/Time Seen: 01/31/23 10:13 Principal diagnosis: Right shoulder dislocation Interval history: Right Shoulder Dislocation and left leg pain. Overall, pain is improving today. She is tolerating right shoulder immobilizer well. She is very adamant on returning home as opposed to going to a SNF. She has help at home arranged with home nursing care. Review of Systems Review of Systems: All systems reviewed & are unremarkable except as noted in HPI and below Exam Const: General: no acute distress, ill appearing and obese Nutritional Appearance: obese Orientation/consciousness: patient oriented x3 HENMT: Head: normal to inspection Ears: hearing grossly normal bilaterally Face/Nose/Sinus: Normal external nose present and normal facial exam Face and sinus: normal facial exam Mouth: Yes moist mucous membranes Eyes: General: appearance normal, both eyes and all related structures Pupils: Equal, round and reactive pupils present EOM: EOMs intact bilaterally Neck: Neck: normal visual inspection Chest: Chest palpation & inspection: normal inspection of the chest Resp: Effort & Inspection: able to speak in complete sentences ( Nasal cannula O2) Cardio: Jugular venous distension: no JVD Neuro: General: patient oriented x3 Cranial nerves: Yes Equal, round and reactive pupils present Extrem: Right upper extremity: shoulder/upper arm ( shoulder immobilizer in place) ecchymosis and warmth; no deformity, elbow/forearm ( shoulder immobilizer in place) ecchymosis, wrist normal to inspection, normal ROM and radial pulse present 2+; no tenderness and no swelling and Extremity exam: right hand normal to inspection, neuromotor exam normal and neurosensory exam normal Left lower extremity: hip/thigh Details: tenderness, swelling, abnormal ROM ( guarded exam due to pain) and deformity ( some external rotation of the left lower extremity noted), knee Details: tenderness and swelling, lower leg ( swelling noted) Details: tenderness; no erythema, no ecchymosis and no crepitus, ankle ( difficulty with flexion and extension due to pain) Details: tenderness and foot Details: tenderness Objective Data Vital Signs Vital Signs: Vital Signs - 24 hr 01/30/23 14:00 01/30/23 22:00 01/30
--- NOTE | 2023-01-31 11:08 | PM.DS ---
DS: Admitting Diagnosis Discharge Date 01/31/23 Admitting Diagnosis Shoulder dislocation after a fall DS: Discharge Diagnosis Discharge Diagnosis (1) Dislocation closed, shoulder: Qualifiers: Encounter type: initial encounter Laterality: left Qualified Code(s): S43.005A - Unspecified dislocation of left shoulder joint, initial encounter Code(s): S43.006A - Unspecified dislocation of unspecified shoulder joint, initial encounter Status: Acute DS: Summary Hospital Course Hospital Course: This is a 77 year old female with a PMH of sleep disordered breathing on no treatment, history of severe COPD by pulmonary function testing, chronic hypoxemia on supplemental oxygen at home, history of congestive heart failure, status post pacemaker implantation, secondary pulmonary hypertension related to left ventricular diastolic dysfunction with evidence of?severely enlarged atrium on echocardiogram and also related to chronic hypoxemia resulting from sleep apnea/COPD. She was recently discharged on 01/25/23 with home BiPAP. On 01/29 she presented to the ED with complaints of shoulder pain after falling while getting out of bed. She was found to have a right shoulder dislocation which was reduced in the ED. Orthopedics were consulted. No surgery is needed for her right arm, she is to be non-weight bearing. They also requested CT of her left hip due to complaints of pain s/p fall. CT imaging shows mild left hip and sacroiliac osteoarthritis but not acute osseous abnormality. PT and OT were requested to see the patent however, she is a Carlos lift at baseline and is now non-weightbearing to her right arm. Patient lives with family and has multiple assist devices including sit to stand and carlos lift. She also receives in home services 4-8 hours a day. She is declining placement and would like to return home. 01/31: Patient was seen today resting in bed in no acute distress. She is chronically on oxygen for her COPD and remains on oxygen now. She has some generalized bruising to her right upper extremity. It is in an arm immobilizer per orthopedics. She does not walk at baseline but transfers with a sit to stand. She is declining placement as she feels well supported at home. She mentioned to me that she has her new bipap at home but the mask is slightly too small. I had inquired with our RT department to see if we could fit and send her with a mask from here but was told the mask would not be interchangeable with the patient's machine. Patient will need to contact her DME company for a new mask. Status at Discharge Cognitive/behavioral status at discharge: A&Ox4, pleasant, chronically on oxygen. Time Spent with Patient Time attestation: Total time spent providing and/or coordinating discharge services:40 Exam Narrative: General: chronically ill appearing, obese, appears stated age. HEENT: normocephalic, atraumatic. Mucous membranes moist. EOMI, PERRLA, bilateral sclera anicteric, no conjunctival injection. Neck supple without JVD, lymphadenopathy, or bruit. Respiratory: clear to auscultation bilaterally. No rales/rhonic/wheezes. On oxygen at baseline. Cardiovascular: Regular rate and rhythm, normal S1-S2 upon auscultation. No murmurs, rubs, or clicks. PMI is nondisplaced, capillary re-fill less than 3 second. Abdomen: Soft, obese, pannus, no pulsatile masses, non-distended and non-tender. No rebound, no guarding. No CVA tenderness, no hepatosplenomegaly. Bowel sounds present to all four quadrants. No high pitch or tinkling sounds, resonant to percussion. Extremities: No cyanosis. Right upper arm with generalized ecchymosis and trace edema in shoulder immobilizer. Pulses are palpable 2/2. Non-weight bearing to RUE. Neuro: Alert and orientated x 4. PERRLA. Cranial nerves 2-12 intact without focal deficit. Skin: Warm, dry, and intact, without rash, erythema, or lesion. Ecchymosis to right arm. Lines: Incisions: Psych: pleasant, cooperative
[2023-01-31 11:47] LABS: Glucose Point of Care 121 mg/dl (65-105)
[2023-01-31 14:00] VITALS: BP 154/80; PULSE 71; RESP 18; TEMP 36.1; O2SAT 96
[2023-01-31 16:26] LABS: Glucose Point of Care 138 mg/dl (65-105)
== END 2023-01-31 19:00 | disposition home or self-care (01) ==
LOC: ANHED 17:20 → ANH3MEDSUR 18:33
PROVIDERS: Admitting Provider Family Medicine; Emergency Provider Emergency Medicine; PCP Family Medicine; Visit Provider Student in an Organized Health Care Education/Training Program
DX: S43.014A Anterior dislocation of right humerus, initial encounter (principal); S43.034A Inferior dislocation of right humerus, initial encounter; W19.XXXA Unspecified fall, initial encounter; M25.552 Pain in left hip; Z79.01 Long term (current) use of anticoagulants; I10 Essential (primary) hypertension; E66.01 Morbid (severe) obesity due to excess calories; Z68.43 Body mass index [BMI] 50.0-59.9, adult; Z87.891 Personal history of nicotine dependence; J44.9 Chronic obstructive pulmonary disease, unspecified; Z85.3 Personal history of malignant neoplasm of breast; I48.0 Paroxysmal atrial fibrillation; Z95.0 Presence of cardiac pacemaker; R26.2 Difficulty in walking, not elsewhere classified
CPT/HCPCS: 23650; 36415; 73020; 73030; 73060; 73502; 73552; 73700; 80048; 80053; 81001; 82550; 82948; 83735; 84100; 85025; 93005; 94640; 96374; 96375; 96376; 99285; A9270; G0378; J2060; J2270; J7030

== ENCOUNTER 2023-03-14 11:21 | Outpatient (CLI) | payer MEDICARE, SELFPAY ==
--- NOTE | ~2023-03-14 | XR_ITS ---
XR femur LT min 2V DATE: 03/14/2023 12:15 INDICATION: Fall. Left leg pain TECHNIQUE: AP and lateral views COMPARISON: 01/30/2023 left femur FINDINGS: There is osteopenia. No fracture or dislocation, periosteal reaction or bone destruction is detected. There is severe osteoarthritic change at the left knee joint. There is prominent femoral artery and popliteal artery calcification. IMPRESSION: No fracture or dislocation of left femur Osteopenia Severe knee osteoarthritis Reviewed, dictated and finalized at location B.
--- NOTE | ~2023-03-14 | XR_ITS ---
XR knee LT 3V DATE: 03/14/2023 12:15 INDICATION: Fall. Left knee pain TECHNIQUE: 3 views COMPARISON: 01/30/2023 left femur FINDINGS: There is diffuse osteopenia. There is severe osteoarthritic change at the medial and patellofemoral compartments. Chronic irregula rity of the medial femoral and tibial articular surfaces 6 01/30/2023. No fracture or dislocation or s ignificant joint effusion is appreciated. No periosteal reaction or bone destruction. Prominent arterial calcification. IMPRESSION: Severe osteoarthritic change Osteopenia No recent fracture or dislocation is evident Reviewed, dictated and finalized at location B.
== END 2023-03-14 11:22 | disposition home or self-care (01) ==
PROVIDERS: PCP Family Medicine; Visit Provider Nurse Practitioner Family
DX: M17.12 Unilateral primary osteoarthritis, left knee (principal); M85.80 Other specified disorders of bone density and structure, unspecified site
CPT/HCPCS: 73552; 73562

== ENCOUNTER 2023-03-25 11:32 | Outpatient (NON) | payer MEDICARE, SELFPAY ==
[2023-03-25 14:05] LABS: Alanine Aminotransferase 15 U/L (6-35); Alkaline Phosphatase 108 U/L (38-126); Anion Gap 16 mmol/L (8-16); Aspartate Amino Transferase 31 U/L (14-36); Bilirubin,Total 1.6 mg/dL (0.2-1.3); Blood Urea Nitrogen 54 mg/dL (7-17); Carbon Dioxide 26 mmol/L (22-30); Chloride 92 mmol/L (98-107); Estimated Glomerular Filt Rate 40; Glucose 83 mg/dL (65-110); Potassium 4.1 mmol/L (3.4-5.0); Sodium 134 mmol/L (137-145)
== END 2023-03-25 11:33 | disposition home or self-care (01) ==
LOC: HOME HLTH 11:36
PROVIDERS: PCP Family Medicine; Visit Provider Family Medicine
DX: R70.1 Abnormal plasma viscosity (principal); I50.9 Heart failure, unspecified
CPT/HCPCS: 80048; 80076; 83036

== ENCOUNTER 2023-03-26 11:32 | Outpatient (NON) | payer MEDICARE, SELFPAY ==
[2023-03-26 12:06] LABS: Appearance Urine Turbid (Clear); Bacteria Urine 4+ /hpf; Bilirubin Urine 1+ (Negative); Blood Urine 3+ (Negative); Color Urine Dark Yellow (Yellow); Glucose Urine UA Trace mg/dL (Negative); Hyaline Casts Urine Present /lpf; Ketones Urine Negative (Negative); Leukocyte Esterase Ur 3+ LEU/UL (Negative); Nitrate Urine Negative (Negative); Non Pathogenic Casts >20; Protein Urine 3+ mg/dL (Negative); RBC Urine >100 /hpf (0-2); Specific Grav Ur 1.018 (1.001-1.035); Squamous Epithelial Cell Urine Moderate /hpf (Few); WBC Clumps Urine Present /HPF; WBC Urine >100 /hpf
[2023-03-26 12:09] LABS: Add Urine Microscopic? YES
== END 2023-03-26 11:33 | disposition home or self-care (01) ==
PROVIDERS: PCP Family Medicine; Visit Provider Family Medicine
DX: N39.0 Urinary tract infection, site not specified (principal); M25.552 Pain in left hip; S43.005D Unspecified dislocation of left shoulder joint, subsequent encounter; M17.12 Unilateral primary osteoarthritis, left knee
CPT/HCPCS: 81001; 87077; 87086; 87186

== ENCOUNTER 2023-03-31 10:10 | Emergency (ER) | payer MEDICARE, SELFPAY ==
--- NOTE | ~2023-03-31 | CT_ITS ---
EXAMINATION: CT pelvis wo con DATE: 03/31/2023 11:40 INDICATION: Left hip pain post fall one month prior TECHNIQUE: High resolution computed tomography (CT) of the pelvis was performed without intravenous c ontrast. Additional sagittal and coronal reconstructions were performed. Automated exposure control a nd iterative reconstruction technique were employed. The dose-length product was 911.63 mGy-cm. COMPARISON: CT dated 01/30/2023 and 01/20/2022 FINDINGS: Mild osteoarthritis at the bilateral hips, sacroiliac joint. Moderate osteoarthritis at the right sac ral iliac joint. No fracture. No findings to suggest osteonecrosis. 2 mm retrolisthesis L4 on L5 and 6 mm anterolisthesis L5 on S1. Bone alignment is otherwise normal. Moderate to severe disc height los s at L4-L5 and mild disc height loss at L3-L4 and L5-S1. Severe osteoarthritis with likely fusion at the bilateral L4-L5 facet joints. Additional moderate left-sided and severe right-sided facet osteoar thritis at L3-L4 and moderate right-sided and moderate to severe left-sided facet osteoarthritis at L 5-S1. There is mild central canal stenosis at L3-L4 and L4-L5. Moderate neural foraminal stenosis on the bilaterally at L4-L5 and on the right at L3-L4 and mild at the remaining lower lumbar neural fora monica. Postoperative changes along the right lower quadrant anterior abdominal wall likely related to prior hernia repair with recurrent very large ventral hernia containing a large portion of the colon and multiple loops of small bowel. There are multiple diverticula along the colon without adjacent fr om trace stranding to suggest diverticulitis. Gallstones within the nondilated gallbladder which is w ithout wall thickening or pericholecystic progression to suggest acute cholecystitis. Bladder is norm al. No pathologically enlarged pelvic or inguinal lymphadenopathy. Bilateral mild to moderate fatty a trophy of the gluteal musculature. There is a new approximate 5 x 5 x 3 cm soft tissue density in the right gluteus medias muscle belly which could represent a posttraumatic hematoma. IMPRESSION: 1. Mild left hip osteoarthritis. No fracture or other acute/subacute osseous abnormality. 2. Indeterminate 5 x 5 x 3 cm masslike soft tissue tissue density in the right gluteus medius muscle belly, new since 01/20/2022 which is nonspecific which could represent a post traumatic hematoma altho ugh solid neoplasm cannot be excluded. Correlate clinically and with physical exam and could consider further evaluation with pre and postcontrast MRI as clinically indicated. 3. Moderate to severe lower lumbar spondylosis. 4. Very large right lower quadrant ventral hernia containing large portion of the colon and multiple loops of small bowel with changes likely prior attempted hernia repair. 5. Cholelithiasis. 6. Diverticulosis. Reviewed, dictated and finalized at location A. OR PROCUREMENT MANAGER IMPRESSION: 1. Mild left hip osteoarthritis. No fracture or other acute/subacute osseous ab normality. 2. Indeterminate 5 x 5 x 3 cm masslike soft tissue tissue density in the right gluteus medius muscle belly, new since 01/20/2022 which is nonspecific which cou ld represent a post traumatic hematoma although solid neoplasm cannot be exclud ed. Correlate clinically and with physical exam and could consider further eval uation with pre and postcontrast MRI as clinically indicated. 3. Moderate to severe lower lumbar spondylosis. 4. Very large right lower quadrant ventral hernia containing large portion of t he colon and multiple loops of small bowel with changes likely prior attempted hernia repair. 5. Cholelithiasis. 6. Diverticulosis.
[2023-03-31 10:11] VITALS: BP 152/66; PULSE 67; RESP 17; TEMP 36.6; O2SAT 96
--- NOTE | 2023-03-31 11:30 | ED.LOWEXIN ---
HPI - Extremity Injury (Lower) General Chief Complaint: Extremity Injury, Lower Stated Complaint: Hip pain Time Seen by Provider: 03/31/23 10:29 Source: patient and old records reviewed Mode of arrival: EMS Limitations: no limitations History of Present Illness HPI Narrative: patient is a 77-year-old female who presents the ED via EMS with report of left hip pain. patient reports she sustained a fall in late January of this year. She sustained a left shoulder dislocation and was admitted to the hospital at that time. She did injure her left hip in the fall, as well, but had negative imaging of her hip. She has had persistent pain since then, worse with any type of movement. She does not ambulate, but was able to stand with assistance prior to the fall. She has had difficulty caring for herself at home due to the pain. She does live with her children and has home health present daily. She states her family is wanting her placed in a [place] [facility] facility. She is agreeable to this. Denies any new injury. Denies numbness or tingling. Denies lower extremity swelling. Patient would also like her bed sores evaluated. Denies fevers. Related Data Home Medications Medication Instructions Recorded Confirmed calcitriol 0.25 mcg capsule 0.25 mcg PO DAILY 12/20/19 01/29/23 diltiazem HCl 180 mg 180 mg PO HS 12/20/19 01/29/23 capsule,extended release 24 hr (Cardizem CD) fluticasone propionate 50 2 spray intranasal PRN PRN 12/20/19 01/29/23 mcg/actuation nasal Congestion spray,suspension hydrocodone 5 mg-acetaminophen 325 1 tablet PO Q6H PRN Pain 12/20/19 01/29/23 mg tablet hydroxyzine pamoate 50 mg capsule 50 mg PO Q6-8H PRN Itching 12/20/19 01/29/23 letrozole 2.5 mg tablet 2.5 mg PO DAILY 12/20/19 01/29/23 allopurinol 100 mg tablet 200 mg PO DAILY 01/20/22 01/29/23 atorvastatin 10 mg tablet 10 mg PO HS 01/20/22 01/29/23 ergocalciferol (vitamin D2) 1,250 1,250 mcg PO WEEKLY 01/20/22 01/29/23 mcg (50,000 unit) capsule (Vitamin D2) fluticasone fur. 100 mcg-umeclid 1 inh inhalation DAILY 01/20/22 01/29/23 62.5 mcg-vilant 25 mcg inhalat.powder (Trelegy Ellipta) gabapentin 600 mg tablet 1,200 mg PO HS 01/08/23 01/29/23 gabapentin 600 mg tablet 600 mg PO DAILY 01/08/23 01/29/23 latanoprost 0.005 % eye drops 1 drp EACH EYE HS 01/08/23 01/29/23 cetirizine 10 mg tablet 10 mg PO HS 01/29/23 01/29/23 potassium chloride 20 mEq 20 meq PO DAILY 01/29/23 01/29/23 tablet,extended release(part/cryst) pramipexole 0.5 mg tablet 0.5 mg PO HS 01/29/23 01/29/23 Allergies Allergy/AdvReac Type Severity Reaction Status Date / Time rivaroxaban AdvReac Intermediate Other Verified 03/31/23 10:19 Review of Systems Review of Systems: CONSTITUTIONAL: Denies fever, chills, or sweats. SKIN: See HPI. MUSCULOSKELETAL: see HPI. NEUROLOGIC: Denies headache, numbness, or weakness. All systems reviewed & are unremarkable except as noted in HPI and below PMFSH Past Medical History Medical History Acute on chronic respiratory failure with hypoxia and hypercapnia At high risk for falls Macdonald esophagus Cancer of right breast (~2017) Status post lumpectomy, chemotherapy, and radiation. CHF exacerbation CHF exacerbation Chronic anticoagulation Coffee ground emesis COPD (chronic obstructive pulmonary disease) Dislocation closed, shoulder RIGHT SHOULDER Duodenal ulcer Hypertension Impaired ambulation Intractable nausea and vomiting Iron deficiency anemia Left hip pain Left leg pain Mitral stenosis Morbid obesity Paroxysmal atrial fibrillation Partial gastric outlet obstruction Pulmonary HTN severe - PA 62 mmHg Ventral incisional hernia without obstruction or gangrene Vomiting Surgical History Surgical History History of fusion of cervical spine C5-C6 fusion after fracture. History of hernia repair Histor
[2023-03-31] MEDS: traMADol HCL (*CRX) 50 MG TABLET PO (12:02)
[2023-03-31 12:03] VITALS: BP 133/76; PULSE 60; RESP 21; O2SAT 96
[2023-03-31 12:09] LABS: Basophils Absolute Auto 0.1 K/mm3 (0.0-0.1); Basophils Percent Auto 0.7 % (0.2-1.2); Eosinophils Absolute Auto 0.2 K/mm3 (0-0.3); Eosinophils Percent Auto 1.7 % (0-4.4); Hematocrit 59.4 % (37.0-47.0); Hemoglobin 18.5 g/dL (12.0-15.0); Immature Granulocyte Absolute 0.05 K/mm3 (0.00-0.031); Immature Granulocyte Percent A 0.4 % (0-0.5); Lymphocytes Percent Auto 15.5 % (18.3-44.2); Mean Corpuscular HGB Conc 31.1 g/dl (32-36); Mean Corpuscular Hemoglobin 28.2 pg (26-34); Mean Corpuscular Volume 90.4 fl (80-100); Mean Platelet Volume 10.2 fl (7.4-10.4); Monocytes Absolute Auto 0.8 K/mm3 (0.1-0.6); Monocytes Percent Auto 6.7 % (2.6-8.5); Neutrophils Absolute Auto 8.7 K/mm3 (1.3-6.7); Platelet Count Result 248 k/mm3 (150-375); Red Blood Count 6.57 M/mm3 (4.2-5.4); Red Cell Distribution Width 17.3 % (11.5-14.5); White Blood Count 11.6 K/mm3 (4.5-10.0)
--- NOTE | 2023-03-31 12:21 | PCCCNOTE ---
spoke with patients daughter regarding placement. patient currently lives alone and has care givers through [facility] 4-8 hours per day/7days a week. patient has home o2, mary lift, sit to stand, and wheelchair. daughter Zoie, patients HPOA would like referrals sent to [facility], [facility]. CC faxed referrals, called and spoke with Reji at facility. they are screening referral now and will get back to CC josse.
[2023-03-31 12:27] LABS: Alanine Aminotransferase 19 U/L (6-35); Albumin Level 3.9 g/dL (3.5-5.1); Alkaline Phosphatase 105 U/L (38-126); Anion Gap 12 mmol/L (8-16); Aspartate Amino Transferase 28 U/L (14-36); Bilirubin,Total 1.1 mg/dL (0.2-1.3); Blood Urea Nitrogen 50 mg/dL (7-17); Calcium 9.5 mg/dL (8.4-10.2); Carbon Dioxide 27 mmol/L (22-30); Chloride 92 mmol/L (98-107); Estimated CRCL calculation 37 ml/min; Estimated Glomerular Filt Rate 40; Glucose 113 mg/dL (65-110); Sodium 131 mmol/L (137-145)
[2023-03-31 12:44] VITALS: BP 110/88; PULSE 64; RESP 15; O2SAT 98
--- NOTE | 2023-03-31 13:15 | PCCCNOTE ---
spoke with gerson at [facility]. that facility is able to accept today. PAssr completed, family will private pay, and patient will transfer via ambulance. CC will continue to follow for any other needs that may arise.
[2023-03-31 14:19] VITALS: BP 107/67; PULSE 60; RESP 15; O2SAT 98
== END 2023-03-31 15:10 ==
PROVIDERS: Emergency Provider Physician Assistant; PCP Family Medicine
DX: M25.552 Pain in left hip (principal); S30.0XXA Contusion of lower back and pelvis, initial encounter; L89.159 Pressure ulcer of sacral region, unspecified stage; J96.91 Respiratory failure, unspecified with hypoxia; I11.0 Hypertensive heart disease with heart failure; I50.9 Heart failure, unspecified; J44.9 Chronic obstructive pulmonary disease, unspecified; I48.91 Unspecified atrial fibrillation; I27.20 Pulmonary hypertension, unspecified; W19.XXXA Unspecified fall, initial encounter
CPT/HCPCS: 36415; 72192; 80053; 85025; 99284; A9270

== ENCOUNTER 2023-11-27 20:50 | Inpatient (IN) | payer MEDICARE, SELFPAY ==
--- NOTE | ~2023-11-27 | XR_ITS ---
XR chest 1V portable Ordering provider: Aditya Salcedo MD History: 78 years Female with . SOB . Comparison: January 19, 2023 FINDINGS: MEDIASTINUM: The cardiac silhouette is slightly enlarged. Left bipolar pacemaker. Congestive salty. LUNGS: No effusion or pneumothorax. Opacification in the right and left perihilar areas and in the lo wer lobes suggestive of pneumonia. Underlying fibrotic changes are possible. Pulmonary edema is not e xcluded. Clinical correlation advised. OTHER: No free air under the diaphragm. Bilateral shoulder osteoarthritic changes. IMPRESSION: Bilateral pneumonia. Pulmonary edema is not excluded. Reviewed, dictated and finalized at location A.
--- NOTE | ~2023-11-27 | CT_ITS ---
CT head without contrast Indication: Confusion Technique: Serial scans were obtained through the brain without the administration of contrast. Dose reduction technique was used on this scan by utilizing automated exposure control and iterative recon struction technique. The dose-length product (DLP) was 832.33 mGy-cm. Findings: There is no evidence of intracranial hemorrhage, mass lesion, or acute infarct. The ventri cles and subarachnoid spaces are unremarkable. Low attenuation regions are seen within the periventr icular white matter bilaterally, likely representing changes from chronic microvascular ischemic dise ase. There is no evidence of edema, mass effect or midline shift. The visualized paranasal sinuses and mastoid air cells are clear. Impression: No intracranial hemorrhage, mass, or acute infarct. Chronic white matter changes, as above. Reviewed, dictated and finalized at location M. Impression: No intracranial hemorrhage, mass, or acute infarct. Chronic white matter changes, as above.
[2023-11-27 20:53] VITALS: BP 180/120; PULSE 80; RESP 13; TEMP 36.9; O2SAT 85
[2023-11-27 20:59] VITALS: O2SAT 85
--- NOTE | 2023-11-27 20:59 | ECG_ITS ---
Test Date: 2023-11-27 20:58:11 Measurements Intervals [place] Rate: 68 P: 0 IN: 0 QRS: -35 QRSD: 122 T: 205 QT: 425 QTc: 453 Interpretive Statements ATRIAL FLUTTER/TACHYCARDIA WITH NORMAL VENTRICULAR RESPONSE LEFT AXIS DEVIATION LEFT BUNDLE BRANCH BLOCK BASELINE ARTIFACT- I, II, III, AVR, AVL, V3-V4 ABNORMAL ECG No previous ECG available for comparison Electronically Signed On 11-27-2023 21:17:52 CDT by Matias Stiles D.O.
[2023-11-27 21:01] VITALS: O2SAT 91
--- NOTE | 2023-11-27 21:11 | PC.NURSE ---
[facility] contacted; spoke with Amada KEITH who states the patient is normally AOx4, wears 3 LPM of supplemental oxygen for her COPD, she has CHF as well, patient's cough started two days ago and seemed confused today.
[2023-11-27 21:15] VITALS: PULSE 77; RESP 25
[2023-11-27] MEDS: IPRATROPIUM 0.5 MG/ALBUTEROL SULFATE 2.5 MG AMPUL.NEB 3 ML INHALATION (21:15)
[2023-11-27 21:38] LABS: Basophils Absolute Auto 0.1 K/mm3 (0.0-0.1); Basophils Percent Auto 0.4 % (0.2-1.2); Hematocrit 55.7 % (37.0-47.0); Hemoglobin 17.7 g/dL (12.0-15.0); Immature Granulocyte Absolute 0.12 K/mm3 (0.00-0.031); Immature Granulocyte Percent A 0.6 % (0-0.5); Lymphocytes Absolute Auto 1.36 K/mm3 (0.9-3.2); Lymphocytes Percent Auto 6.4 % (18.3-44.2); Mean Corpuscular HGB Conc 31.8 g/dl (32-36); Mean Corpuscular Hemoglobin 28.2 pg (26-34); Mean Corpuscular Volume 88.8 fl (80-100); Mean Platelet Volume 10.2 fl (7.4-10.4); Monocytes Absolute Auto 1.3 K/mm3 (0.1-0.6); Monocytes Percent Auto 6.3 % (2.6-8.5); Neutrophils Absolute Auto 18.3 K/mm3 (1.3-6.7); Neutrophils Percent Auto 86.3 % (45.5-73.1); Platelet Count Result 233 k/mm3 (150-375); Red Blood Count 6.27 M/mm3 (4.2-5.4); Red Cell Distribution Width 18.5 % (11.5-14.5); White Blood Count 21.3 K/mm3 (4.5-10.0)
[2023-11-27 21:46] LABS: Lactic Acid Reflex 1.7 mmol/L (0.7-2.0)
[2023-11-27 21:47] LABS: INR 1.4; Prothrombin Time 17.6 Seconds (11.1-14.7)
[2023-11-27 21:48] LABS: Partial Thromboplastin Time 34.4 Seconds (22.3-36.8)
--- NOTE | 2023-11-27 22:07 | ED.GENADULT ---
HPI - General Adult General Chief complaint: Chest Pain Stated complaint: CP/SOB, decreased O2 sats Time Seen by Provider: 11/27/23 21:02 History of Present Illness HPI narrative: patient is 78-year-old female who presents emergency department with chief complaint of shortness of breath. Per the patient and facility the patient has had a cough for the last several days normally wears oxygen and continues to have increasing shortness of breath patient normally uses oxygen documentation from the facility is very limited as they have a computer system failure Related Data Home Medications Medication Instructions Recorded Confirmed calcitriol 0.25 mcg capsule 0.25 mcg PO DAILY 12/20/19 11/28/23 diltiazem HCl 180 mg 180 mg PO HS 12/20/19 11/28/23 capsule,extended release 24 hr (Cardizem CD) fluticasone propionate 50 2 spray intranasal PRN PRN 12/20/19 11/28/23 mcg/actuation nasal Congestion spray,suspension hydrocodone 5 mg-acetaminophen 325 1 tablet PO Q6H PRN Pain 12/20/19 11/28/23 mg tablet hydroxyzine pamoate 50 mg capsule 50 mg PO Q6-8H PRN Itching 12/20/19 11/28/23 letrozole 2.5 mg tablet 2.5 mg PO DAILY 12/20/19 11/28/23 allopurinol 100 mg tablet 200 mg PO DAILY 01/20/22 11/28/23 atorvastatin 10 mg tablet 10 mg PO HS 01/20/22 11/28/23 ergocalciferol (vitamin D2) 1,250 1,250 mcg PO WEEKLY 01/20/22 11/28/23 mcg (50,000 unit) capsule (Vitamin D2) fluticasone fur. 100 mcg-umeclid 1 inh inhalation DAILY 01/20/22 11/28/23 62.5 mcg-vilant 25 mcg inhalat.powder (Trelegy Ellipta) gabapentin 600 mg tablet 1,200 mg PO HS 01/08/23 11/28/23 gabapentin 600 mg tablet 600 mg PO DAILY 01/08/23 11/28/23 latanoprost 0.005 % eye drops 1 drp EACH EYE HS 01/08/23 11/28/23 cetirizine 10 mg tablet 10 mg PO HS 01/29/23 11/28/23 potassium chloride 20 mEq 20 meq PO DAILY 01/29/23 11/28/23 tablet,extended release(part/cryst) pramipexole 0.5 mg tablet 0.5 mg PO HS 01/29/23 11/28/23 Allergies Allergy/AdvReac Type Severity Reaction Status Date / Time rivaroxaban AdvReac Intermediate Other Verified 03/31/23 10:19 Review of Systems Review of Systems: A 10 system review of systems was completed on the patient and is negative except for what is stated in the HPI. Nursing and ancillary documentation was reviewed. [facility] Past Medical History Medical History Acute on chronic respiratory failure with hypoxia and hypercapnia At high risk for falls Macdonald esophagus Cancer of right breast (~2017) Status post lumpectomy, chemotherapy, and radiation. CHF exacerbation CHF exacerbation Chronic anticoagulation Coffee ground emesis COPD (chronic obstructive pulmonary disease) Dislocation closed, shoulder RIGHT SHOULDER Duodenal ulcer Hypertension Impaired ambulation Intractable nausea and vomiting Iron deficiency anemia Left hip pain Left leg pain Mitral stenosis Morbid obesity Paroxysmal atrial fibrillation Partial gastric outlet obstruction Pulmonary HTN severe - PA 62 mmHg Ventral incisional hernia without obstruction or gangrene Vomiting Surgical History Surgical History History of fusion of cervical spine C5-C6 fusion after fracture. History of hernia repair History of lumpectomy of right breast For breast cancer. History of permanent cardiac pacemaker placement History of total hysterectomy with bilateral salpingo-oophorectomy (BSO) Status post debridement Left heel wound debridement. Family History Family History Father Congestive heart failure Heart disease Sibling Diabetes mellitus Mother Breast cancer Sibling Heart disease Social History Social History Social History: The patient is originally from [place], but moved to [place] in spring
[2023-11-27 22:12] LABS: Influenza A QL RT-PCR Negative (Negative); Influenza B QL RT-PCR Negative (Negative); RSV RNA, RT-PCR Negative (Negative); SARS-CoV-2 RNA PCR Negative (Negative)
[2023-11-27 22:18] LABS: Appearance Urine Turbid (Clear); Bacteria Urine 4+ /hpf; Bilirubin Urine 1+ (Negative); Blood Urine 2+ (Negative); Color Urine Dark Yellow (Yellow); Glucose Urine UA Negative (Negative); Ketones Urine Trace mg/dL (Negative); Leukocyte Esterase Ur 3+ LEU/UL (Negative); Need Manual Microscopic Reviewed; Nitrate Urine Negative (Negative); Non Pathogenic Casts >20; Protein Urine 3+ mg/dL (Negative); RBC Urine 0-2 /hpf (0-2); Squamous Epithelial Cell Urine Occasional /hpf (Few); WBC Urine >100 /hpf (0-3)
[2023-11-27 22:19] LABS: Add Urine Microscopic? YES
[2023-11-27 22:29] LABS: Procalcitonin 1.1 ng/mL
[2023-11-27 22:36] LABS: Alanine Aminotransferase 14 U/L (6-35); Albumin Level 4.3 g/dL (3.5-5.1); Alkaline Phosphatase 96 U/L (38-126); Anion Gap 11 mmol/L (4-12); Aspartate Amino Transferase 22 U/L (14-36); Bilirubin,Total 1.7 mg/dL (0.2-1.3); Blood Urea Nitrogen 69 mg/dL (7-17); Calcium 9.2 mg/dL (8.4-10.2); Carbon Dioxide 29 mmol/L (22-30); Chloride 92 mmol/L (98-107); Estimated CRCL calculation 31 ml/min; Estimated Glomerular Filt Rate 29; Glucose 150 mg/dL (65-110); Lipase 38 U/L (23-300); Magnesium 2.3 mg/dL (1.6-2.3); Potassium 5.4 mmol/L (3.4-5.0); Sodium 132 mmol/L (137-145)
[2023-11-27 22:41] LABS: NT Pro B Type Natriuretic Pept 22500 pg/mL (19.9-100); Troponin I 0.074 ng/mL (0.000-0.034)
[2023-11-27] MEDS: SODIUM CHLORIDE 0.9% IV 500 ML 999 ML IV CONT (22:52)
[2023-11-27 22:54] VITALS: BP 126/70; PULSE 68; RESP 15; O2SAT 93
[2023-11-27] MEDS: AZITHROMYCIN 500 MG/NS 250 ML 500 MG/250 ML BAG 250 MG IVPB (23:04)
[2023-11-28] VITALS (29 sets, daily range): BP systolic 120–152; BP diastolic 57–138; PULSE 56–78; RESP 16–24; TEMP 36.2–36.5; O2SAT 91–98; BMI 43.5
[2023-11-28 00:16] LABS: MRSA (PCR) NOT DETECTED (NOT DETECTE)
--- NOTE | 2023-11-28 00:18 | ADMGEN ---
This patient, Ashley Croft, was admitted to IMU Room 232-01. Patient/family oriented to hospital policies and general routines including ID bracelet, bed and alarms, visiting hours, pain management, procedures, bathroom and other care routines, personal items, smoking policy, room service/diet, and visiting hours. Information on how to activate the Rapid Response Team has been discussed. Patient/Family are encouraged to report perceived risks to care and to ask questions if they do not understand what they are told or what they should do.
[2023-11-28] MEDS: SODIUM CHLORIDE 0.9% IV 1,000 ML 75 ML IV CONT ×2 (00:20→13:38)
[2023-11-28 00:53] LABS: Troponin I 0.074 ng/mL (0.000-0.034)
[2023-11-28] MEDS: IPRATROPIUM 0.5 MG/ALBUTEROL SULFATE 2.5 MG AMPUL.NEB 3 ML INHALATION ×5 (02:30→20:41)
[2023-11-28 05:38] LABS: Troponin I 0.073 ng/mL (0.000-0.034)
--- NOTE | 2023-11-28 10:40 | PM.IMHP ---
H&P: HPI History of Present Illness Date/Time: 11/28/23 10:40 Chief Complaint: shortness of breath Narrative: This is an unfortunately very chronically ill 78-year-old female with PMH morbid obesity, severe end-stage COPD with chronic hypoxic respiratory failure on 3 L O2, pulmonary hypertension, history of heart failure status post pacemaker implantation, chronic erythrocytosis, sleep disordered breathing not currently on treatment, hypertension, paroxysmal atrial fibrillation. She was living with her son and daughter until a few months ago and since she has not been able to walk she has been moved to prison living at [facility]. For few days the patient has had shortness of breath was brought into the [place] ER. She was found to have blood pressure 180/120 coming down to 126/70, respiratory rate of 25, 91% O2 saturation on 2 L nasal cannula. She was given 1 L normal saline bolus along with ceftriaxone 1 g IV x1, Zithromax 500 mg IV x1, DuoNeb x1. Chest x-ray revealed bilateral pneumonia however pulmonary edema was not excluded. Patient admitted for further workup of bilateral pneumonia and respiratory distress. 11/27 on evaluation by the technical proposal writer the patient has resting dyspnea. She reports being short of breath. She coughs without sputum production although reports she has coughed up some phlegm previously. The patient is only a partially reliable historian. She appears slightly confused and unable to recall facts. Otherwise she feels she is not doing well and feels very weak. Review of Systems Review of Systems: All systems reviewed & are unremarkable except as noted in HPI and below (Subjective) [facility]LY [facility], [facility] Past Medical History Medical History Acute on chronic respiratory failure with hypoxia and hypercapnia At high risk for falls Macdonald esophagus Cancer of right breast (~2016) Status post lumpectomy, chemotherapy, and radiation. CHF exacerbation CHF exacerbation Chronic anticoagulation Coffee ground emesis COPD (chronic obstructive pulmonary disease) Dislocation closed, shoulder RIGHT SHOULDER Duodenal ulcer Hypertension Impaired ambulation Intractable nausea and vomiting Iron deficiency anemia Left hip pain Left leg pain Mitral stenosis Morbid obesity Paroxysmal atrial fibrillation Partial gastric outlet obstruction Pulmonary HTN severe - PA 62 mmHg Ventral incisional hernia without obstruction or gangrene Vomiting Surgical History Surgical History History of fusion of cervical spine C5-C6 fusion after fracture. History of hernia repair History of lumpectomy of right breast For breast cancer. History of permanent cardiac pacemaker placement History of total hysterectomy with bilateral salpingo-oophorectomy (BSO) Status post debridement Left heel wound debridement. Family History Family History Father Congestive heart failure Heart disease Sibling Diabetes mellitus Mother Breast cancer Sibling Heart disease Social History Social History Social History: The patient is originally from [place], but moved to [place] in spring 2019 to live with her daughter however she is now living in her own apartment. She is nonambulatory and transfers with a [facility]. Her daughter and caretakers come in several hours a day. 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 She smoked upwards of 2 packs of cigarettes a day for 40 years and quit in 2009. She denies alcohol and illicit substance use. Her only child, daughter Zoie Peguero, is her surrogate decision maker and she wishes to be a full code. Smoking packs per day: 2 Smoking cigarettes per day: 40.0 Smoking status: Never smoker Tobacco type: cigarettes Additional smoking assessment comments: quit 1989
[2023-11-28] MEDS: SODIUM ZIRCONIUM CYCLOSILICATE 10 GM POWD.PACK PO (10:59)
[2023-11-28] MEDS: PANTOPRAZOLE 40 MG TABLET PO (10:59)
[2023-11-28 11:11] LABS: Alveolar/Arterial O2 Gradient 119.4 mmHg; Base Excess ABG 0.4 mEq/l (+/-2.0); Carboxyhemoglobin 1.8 % THb (0-2.0); Fractional Inspired Oxygen 32 %; HCO3 ABG 24.5 mEq/l (22.0-26.0); Methemoglobin ABG 0.1 %THb (0-1.5); Oxygen Content ABG 20.8 %vol (16.0-22.0); Oxygen Saturation ABG 93.2 % (95.0-100.0); Oxyhemoglobin 90.9 % THb (90.0-100.0); PCO2 ABG 37.9 mmHg (35.0-45.0); PO2 ABG 64.4 mmHg (80.0-100.0); PO2 FiO2 Ratio Arterial Blood 2.01 %; Reduced Hemoglobin 7.2 %THb (0-5.0); Total Hemoglobin 16.3 g/dL (12.0-18.0); pH ABG 7.428 (7.350-7.450)
[2023-11-28 11:14] LABS: Device NASAL CANNULA; Modified Allen's Test Pass; Site Drawn RIGHT RADIAL
[2023-11-28 11:25] LABS: Glucose Point of Care 141 mg/dl (65-105)
[2023-11-28 11:37] LABS: Basophils Absolute Auto 0.1 K/mm3 (0.0-0.1); Basophils Percent Auto 0.3 % (0.2-1.2); Eosinophils Percent Auto 0.2 % (0-4.4); Hematocrit 49.6 % (37.0-47.0); Hemoglobin 15.8 g/dL (12.0-15.0); Immature Granulocyte Absolute 0.07 K/mm3 (0.00-0.031); Immature Granulocyte Percent A 0.4 % (0-0.5); Lymphocytes Absolute Auto 1.36 K/mm3 (0.9-3.2); Lymphocytes Percent Auto 7.6 % (18.3-44.2); Mean Corpuscular HGB Conc 31.9 g/dl (32-36); Mean Corpuscular Hemoglobin 28.6 pg (26-34); Mean Corpuscular Volume 89.7 fl (80-100); Mean Platelet Volume 10.1 fl (7.4-10.4); Monocytes Absolute Auto 1.4 K/mm3 (0.1-0.6); Monocytes Percent Auto 8.1 % (2.6-8.5); Neutrophils Absolute Auto 14.9 K/mm3 (1.3-6.7); Neutrophils Percent Auto 83.4 % (45.5-73.1); Platelet Count Result 202 k/mm3 (150-375); Red Blood Count 5.53 M/mm3 (4.2-5.4); Red Cell Distribution Width 17.9 % (11.5-14.5); White Blood Count 17.8 K/mm3 (4.5-10.0)
[2023-11-28 11:51] LABS: Ammonia < 9 umol/L (9-30); Lactic Acid Reflex 1.5 mmol/L (0.7-2.0)
[2023-11-28 11:52] LABS: Alanine Aminotransferase 12 U/L (6-35); Albumin Level 3.7 g/dL (3.5-5.1); Alkaline Phosphatase 89 U/L (38-126); Anion Gap 12 mmol/L (4-12); Aspartate Amino Transferase 20 U/L (14-36); Bilirubin,Total 1.3 mg/dL (0.2-1.3); Blood Urea Nitrogen 72 mg/dL (7-17); Calcium 8.7 mg/dL (8.4-10.2); Carbon Dioxide 24 mmol/L (22-30); Chloride 96 mmol/L (98-107); Estimated CRCL calculation 30 ml/min; Estimated Glomerular Filt Rate 29; Glucose 130 mg/dL (65-110); Magnesium 2.2 mg/dL (1.6-2.3); Potassium 4.9 mmol/L (3.4-5.0); Sodium 132 mmol/L (137-145)
[2023-11-28 11:57] LABS: Hemoglobin A1C 6.1 % (<5.7)
[2023-11-28] MEDS: METOCLOPRAMIDE HCL INJ 10 MG/2 ML VIAL 5 MG IV PUSH ×3 (12:04→23:31)
[2023-11-28 16:36] LABS: Glucose Point of Care 104 mg/dl (65-105)
[2023-11-28 19:11] LABS: Anion Gap 10 mmol/L (4-12); Blood Urea Nitrogen 73 mg/dL (7-17); Calcium 8.4 mg/dL (8.4-10.2); Carbon Dioxide 26 mmol/L (22-30); Chloride 95 mmol/L (98-107); Estimated CRCL calculation 34 ml/min; Estimated Glomerular Filt Rate 34; Glucose 139 mg/dL (65-110); Potassium 4.5 mmol/L (3.4-5.0); Sodium 131 mmol/L (137-145)
[2023-11-28 21:49] LABS: Glucose Point of Care 106 mg/dl (65-105)
[2023-11-28] MEDS: APIXABAN 5 MG TABLET PO (22:00)
[2023-11-28] MEDS: dilTIAZem HCL CD 180 MG CAP.24HR PO (22:00)
[2023-11-28] MEDS: AZITHROMYCIN 500 MG/NS 250 ML 500 MG/250 ML BAG 250 MG IVPB (23:33)
[2023-11-29] VITALS (17 sets, daily range): BP systolic 110–141; BP diastolic 58–81; PULSE 60–70; RESP 14–20; TEMP 36.5–36.8; O2SAT 93–97
[2023-11-29] MEDS: IPRATROPIUM 0.5 MG/ALBUTEROL SULFATE 2.5 MG AMPUL.NEB 3 ML INHALATION ×4 (02:45→20:13)
[2023-11-29] MEDS: SODIUM CHLORIDE 0.9% IV 1,000 ML 75 ML IV CONT (04:52)
[2023-11-29] MEDS: METOCLOPRAMIDE HCL INJ 10 MG/2 ML VIAL 5 MG IV PUSH ×3 (05:51→17:36)
[2023-11-29 07:02] LABS: Basophils Absolute Auto 0.1 K/mm3 (0.0-0.1); Basophils Percent Auto 0.5 % (0.2-1.2); Eosinophils Absolute Auto 0.1 K/mm3 (0-0.3); Eosinophils Percent Auto 0.9 % (0-4.4); Hematocrit 51.7 % (37.0-47.0); Hemoglobin 15.7 g/dL (12.0-15.0); Immature Granulocyte Absolute 0.05 K/mm3 (0.00-0.031); Immature Granulocyte Percent A 0.4 % (0-0.5); Lymphocytes Absolute Auto 0.98 K/mm3 (0.9-3.2); Lymphocytes Percent Auto 7.6 % (18.3-44.2); Mean Corpuscular HGB Conc 30.4 g/dl (32-36); Mean Corpuscular Hemoglobin 28.8 pg (26-34); Mean Corpuscular Volume 94.7 fl (80-100); Mean Platelet Volume 10.6 fl (7.4-10.4); Monocytes Percent Auto 7.5 % (2.6-8.5); Neutrophils Absolute Auto 10.7 K/mm3 (1.3-6.7); Neutrophils Percent Auto 83.1 % (45.5-73.1); Platelet Count Result 174 k/mm3 (150-375); Red Blood Count 5.46 M/mm3 (4.2-5.4); Red Cell Distribution Width 17.7 % (11.5-14.5); White Blood Count 12.9 K/mm3 (4.5-10.0)
[2023-11-29 07:54] LABS: Glucose Point of Care 106 mg/dl (65-105)
[2023-11-29 08:23] LABS: Anion Gap 14 mmol/L (4-12); Blood Urea Nitrogen 69 mg/dL (7-17); Calcium 8.5 mg/dL (8.4-10.2); Carbon Dioxide 19 mmol/L (22-30); Chloride 99 mmol/L (98-107); Estimated CRCL calculation 37 ml/min; Estimated Glomerular Filt Rate 37; Glucose 94 mg/dL (65-110); Magnesium 2.6 mg/dL (1.6-2.3); Potassium 4.8 mmol/L (3.4-5.0); Sodium 132 mmol/L (137-145)
[2023-11-29] MEDS: APIXABAN 5 MG TABLET PO ×2 (08:42→20:31)
[2023-11-29] MEDS: PANTOPRAZOLE 40 MG TABLET PO (08:43)
[2023-11-29 09:20] LABS: Procalcitonin 1.2 ng/mL
[2023-11-29 12:02] LABS: Glucose Point of Care 153 mg/dl (65-105)
--- NOTE | 2023-11-29 14:42 | PCPTNOTE ---
after EMR; contacted dr and verbal orders received to d/c therapy orders. Pt is nursing home care at [place] for [facility]-- PT and OT are not indicated for pt.
--- NOTE | 2023-11-29 15:00 | PCOTNOTE ---
After EMR review, contacted MD and verbal orders received to d/c therapy orders. Pt is [facility] at [place] for [facility]-- PT and OT are not indicated for pt.
--- NOTE | 2023-11-29 15:07 | PM.IMPN ---
Progress Note: A&P Assessment and Plan (1) Acute respiratory failure: Code(s): J96.00 - Acute respiratory failure, unspecified whether with hypoxia or hypercapnia Status: Acute (2) Sleep apnea: Code(s): G47.30 - Sleep apnea, unspecified Status: Acute (3) Bacterial pneumonia: Code(s): J15.9 - Unspecified bacterial pneumonia Status: Acute (4) Acute kidney injury superimposed on CKD: Code(s): N17.9 - Acute kidney failure, unspecified; N18.9 - Chronic kidney disease, unspecified Status: Acute (5) COPD with acute exacerbation: Code(s): J44.1 - Chronic obstructive pulmonary disease with (acute) exacerbation Status: Acute (6) Elevated troponin: Code(s): R79.89 - Other specified abnormal findings of blood chemistry Status: Acute (7) COPD (chronic obstructive pulmonary disease): Code(s): J44.9 - Chronic obstructive pulmonary disease, unspecified Status: Acute Plan This is an unfortunately very chronically ill 78-year-old female with PMH morbid obesity, severe end-stage COPD with chronic hypoxic respiratory failure on 3 L O2, pulmonary hypertension, CKD, history of heart failure status post pacemaker implantation, chronic erythrocytosis, sleep disordered breathing not currently on treatment, prior smoker hypertension, paroxysmal atrial fibrillation. She was living with her son and daughter until a few months ago and since she has not been able to walk she has been moved to senior living living at [facility]. For few days the patient has had shortness of breath was brought into the [place] ER. She was found to have blood pressure 180/120 coming down to 126/70, respiratory rate of 25, 91% O2 saturation on 2 L nasal cannula. She was given 1 L normal saline bolus along with ceftriaxone 1 g IV x1, Zithromax 500 mg IV x1, DuoNeb x1. Chest x-ray revealed bilateral pneumonia however pulmonary edema was not excluded. Patient admitted for further workup of bilateral pneumonia and respiratory distress. 11/27 on evaluation by the bond underwriter the patient has resting dyspnea. She reports being short of breath. She coughs without sputum production although reports she has coughed up some phlegm previously. The patient is only a partially reliable historian. She appears slightly confused and unable to recall facts. Otherwise she feels she is not doing well and feels very weak. ----- Respiratory distress improved although the patient still complains of shortness of breath. She still has wheezing and coarse breath sounds as well. In addition to the antibiotics started yesterday and the scheduled DuoNebs, will start Solu-Medrol 60 mg IV q.6 hours for 2 doses and then prednisone 40 mg p.o. q.day to start tomorrow on 11/29. Continue ceftriaxone and azithromycin. Sepsis is improving. Continue to trend leukocytosis. Discontinue fluids as she has heart failure with preserved ejection fraction and takes Bumex at baseline. We are still awaiting proper med reconciliation from the nursing TROY is resolving as well. At baseline the [facility] and uses [facility]. Discharged from therapy evaluations. #Acute respiratory failure due to bilateral bacterial pneumonia and acute COPD exacerbation complicated by history of sleep disordered breathing not currently on noninvasive ventilator treatment, pulmonary hypertension -patient unclear why she does not use a noninvasive ventilator. Auto PAP at night -currently she is slightly confused. CT head and ABG to further assess. Check ammonia level as well. -DuoNeb scheduled, ceftriaxone 1 g q.day, azithromycin 500 mg IV q.day -she has wheezing acute COPD exacerbation may be due to the pneumonia. Defer steroids for now. -sputum culture, blood cultures pending. Pending Legionella, mycoplasma, pneumococcal antigen. -currently requiring 3 L nasal cannula only. Noninvasive ventilation during the day is a consideration.
[2023-11-29 17:05] LABS: Glucose Point of Care 96 mg/dl (65-105)
[2023-11-29] MEDS: methylPREDNISolone SOD SUCC 125 MG VIAL 60 MG IV PUSH (17:36)
[2023-11-29 20:19] LABS: Glucose Point of Care 163 mg/dl (65-105)
[2023-11-29] MEDS: dilTIAZem HCL CD 180 MG CAP.24HR PO (20:30)
[2023-11-29] MEDS: ACETAMINOPHEN 325 MG TABLET 650 MG PO (22:22)
[2023-11-29] MEDS: AZITHROMYCIN 500 MG/NS 250 ML 500 MG/250 ML BAG 250 MG IVPB (22:22)
[2023-11-30] VITALS (18 sets, daily range): BP systolic 132–154; BP diastolic 57–93; PULSE 59–72; RESP 12–18; TEMP 36.2–36.9; O2SAT 94–98
[2023-11-30] MEDS: METOCLOPRAMIDE HCL INJ 10 MG/2 ML VIAL 5 MG IV PUSH ×5 (00:35→23:31)
[2023-11-30] MEDS: methylPREDNISolone SOD SUCC 125 MG VIAL 60 MG IV PUSH (00:35)
[2023-11-30] MEDS: IPRATROPIUM 0.5 MG/ALBUTEROL SULFATE 2.5 MG AMPUL.NEB 3 ML INHALATION ×4 (02:42→21:04)
[2023-11-30 06:27] LABS: Hematocrit 51.5 % (37.0-47.0); Mean Corpuscular HGB Conc 31.1 g/dl (32-36); Mean Corpuscular Hemoglobin 28.1 pg (26-34); Mean Corpuscular Volume 90.4 fl (80-100); Mean Platelet Volume 10.3 fl (7.4-10.4); Platelet Count Result 207 k/mm3 (150-375); Red Cell Distribution Width 17.4 % (11.5-14.5); White Blood Count 8.8 K/mm3 (4.5-10.0)
[2023-11-30 06:40] LABS: Anion Gap 14 mmol/L (4-12); Blood Urea Nitrogen 51 mg/dL (7-17); Carbon Dioxide 21 mmol/L (22-30); Chloride 102 mmol/L (98-107); Estimated CRCL calculation 46 ml/min; Estimated Glomerular Filt Rate 48; Glucose 171 mg/dL (65-110); Magnesium 2.5 mg/dL (1.6-2.3); Potassium 4.7 mmol/L (3.4-5.0); Sodium 137 mmol/L (137-145)
[2023-11-30 08:21] LABS: Glucose Point of Care 164 mg/dl (65-105)
[2023-11-30] MEDS: PANTOPRAZOLE 40 MG TABLET PO (09:10)
[2023-11-30] MEDS: predniSONE 20 MG TABLET 40 MG PO (09:10)
[2023-11-30] MEDS: APIXABAN 5 MG TABLET PO ×2 (09:10→21:05)
[2023-11-30] MEDS: INSULIN ASPART (*BKC) 100 UNITS/ML SUB-Q (12:10)
[2023-11-30 12:33] LABS: Glucose Point of Care 383 mg/dl (65-105)
--- NOTE | 2023-11-30 16:02 | PM.IMPN ---
Progress Note: A&P Assessment and Plan (1) Acute respiratory failure: Code(s): J96.00 - Acute respiratory failure, unspecified whether with hypoxia or hypercapnia Status: Acute (2) Sleep apnea: Code(s): G47.30 - Sleep apnea, unspecified Status: Acute (3) Bacterial pneumonia: Code(s): J15.9 - Unspecified bacterial pneumonia Status: Acute (4) Acute kidney injury superimposed on CKD: Code(s): N17.9 - Acute kidney failure, unspecified; N18.9 - Chronic kidney disease, unspecified Status: Acute (5) COPD with acute exacerbation: Code(s): J44.1 - Chronic obstructive pulmonary disease with (acute) exacerbation Status: Acute (6) Elevated troponin: Code(s): R79.89 - Other specified abnormal findings of blood chemistry Status: Acute (7) COPD (chronic obstructive pulmonary disease): Code(s): J44.9 - Chronic obstructive pulmonary disease, unspecified Status: Acute Plan This is an unfortunately very chronically ill 78-year-old female with PMH morbid obesity, severe end-stage COPD with chronic hypoxic respiratory failure on 3 L O2, pulmonary hypertension, CKD, history of heart failure status post pacemaker implantation, chronic erythrocytosis, sleep disordered breathing not currently on treatment, prior smoker hypertension, paroxysmal atrial fibrillation. She was living with her son and daughter until a few months ago and since she has not been able to walk she has been moved to skilled nursing living at [facility]. For few days the patient has had shortness of breath was brought into the [place] ER. She was found to have blood pressure 180/120 coming down to 126/70, respiratory rate of 25, 91% O2 saturation on 2 L nasal cannula. She was given 1 L normal saline bolus along with ceftriaxone 1 g IV x1, Zithromax 500 mg IV x1, DuoNeb x1. Chest x-ray revealed bilateral pneumonia however pulmonary edema was not excluded. Patient admitted for further workup of bilateral pneumonia and respiratory distress. 11/27 on evaluation by the board writer the patient has resting dyspnea. She reports being short of breath. She coughs without sputum production although reports she has coughed up some phlegm previously. The patient is only a partially reliable historian. She appears slightly confused and unable to recall facts. Otherwise she feels she is not doing well and feels very weak. 11/30/2023: Her breathing is slightly improved although patient still believes she is ill. Continue prednisone daily and scheduled nebs. Asked nursing staff to obtain records from SNF again so we can accurately start her medications. Patient will not wear noninvasive ventilator at night, compliance encouraged. Educated on the detrimental effects of being noncompliant. Patient understood and she should she will try eventually. ----- 11/28: Respiratory distress improved although the patient still complains of shortness of breath. She still has wheezing and coarse breath sounds as well. In addition to the antibiotics started yesterday and the scheduled DuoNebs, will start Solu-Medrol 60 mg IV q.6 hours for 2 doses and then prednisone 40 mg p.o. q.day to start tomorrow on 11/29. Continue ceftriaxone and azithromycin. Sepsis is improving. Continue to trend leukocytosis. Discontinue fluids as she has heart failure with preserved ejection fraction and takes Bumex at baseline. We are still awaiting proper med reconciliation from the nursing TROY is resolving as well. At baseline the [facility] and uses [facility]. Discharged from therapy evaluations. 11/30/2023: Her breathing is slightly improved although patient still believes she is ill. Continue prednisone daily and scheduled nebs. Asked nursing staff to obtain records from SNF again so we can accurately start her medications. Patient will not wear noninvasive ventilator at night, compliance encouraged. Educated on the
[2023-11-30 16:55] LABS: Glucose Point of Care 167 mg/dl (65-105)
[2023-11-30 21:01] LABS: Glucose Point of Care 192 mg/dl (65-105)
[2023-11-30] MEDS: dilTIAZem HCL CD 180 MG CAP.24HR PO (21:06)
[2023-11-30] MEDS: ACETAMINOPHEN 325 MG TABLET 650 MG PO (21:06)
[2023-11-30] MEDS: AZITHROMYCIN 500 MG/NS 250 ML 500 MG/250 ML BAG 250 MG IVPB (23:31)
[2023-12-01] VITALS (8 sets, daily range): BP systolic 115; BP diastolic 53; PULSE 51–64; RESP 16–18; TEMP 36.8; O2SAT 94–97
[2023-12-01] MEDS: IPRATROPIUM 0.5 MG/ALBUTEROL SULFATE 2.5 MG AMPUL.NEB 3 ML INHALATION ×2 (02:02→07:43)
[2023-12-01] MEDS: METOCLOPRAMIDE HCL INJ 10 MG/2 ML VIAL 5 MG IV PUSH (05:26)
[2023-12-01 06:40] LABS: Basophils Percent Auto 0.2 % (0.2-1.2); Hematocrit 49.4 % (37.0-47.0); Hemoglobin 15.2 g/dL (12.0-15.0); Immature Granulocyte Percent A 0.9 % (0-0.5); Lymphocytes Absolute Auto 0.72 K/mm3 (0.9-3.2); Lymphocytes Percent Auto 6.8 % (18.3-44.2); Mean Corpuscular HGB Conc 30.8 g/dl (32-36); Mean Corpuscular Hemoglobin 27.8 pg (26-34); Mean Corpuscular Volume 90.3 fl (80-100); Mean Platelet Volume 10.8 fl (7.4-10.4); Monocytes Absolute Auto 0.8 K/mm3 (0.1-0.6); Monocytes Percent Auto 7.2 % (2.6-8.5); Neutrophils Percent Auto 84.9 % (45.5-73.1); Platelet Count Result 237 k/mm3 (150-375); Red Blood Count 5.47 M/mm3 (4.2-5.4); Red Cell Distribution Width 17.2 % (11.5-14.5); White Blood Count 10.6 K/mm3 (4.5-10.0)
[2023-12-01 06:54] LABS: Anion Gap 9 mmol/L (4-12); Blood Urea Nitrogen 48 mg/dL (7-17); Calcium 8.9 mg/dL (8.4-10.2); Carbon Dioxide 24 mmol/L (22-30); Chloride 103 mmol/L (98-107); Estimated CRCL calculation 51 ml/min; Estimated Glomerular Filt Rate 54; Glucose 142 mg/dL (65-110); Magnesium 2.5 mg/dL (1.6-2.3); Potassium 4.5 mmol/L (3.4-5.0); Sodium 136 mmol/L (137-145)
[2023-12-01 08:23] LABS: Glucose Point of Care 150 mg/dl (65-105)
--- NOTE | 2023-12-01 08:43 | PM.DS ---
DS: Admitting Diagnosis Discharge Date shortness of breath Admitting Diagnosis copd exacerbation, pneumonia DS: Discharge Diagnosis Discharge Diagnosis (1) Sleep apnea: Code(s): G47.30 - Sleep apnea, unspecified Status: Acute (2) Acute respiratory failure: Code(s): J96.00 - Acute respiratory failure, unspecified whether with hypoxia or hypercapnia Status: Acute (3) Acute kidney injury superimposed on CKD: Code(s): N17.9 - Acute kidney failure, unspecified; N18.9 - Chronic kidney disease, unspecified Status: Acute (4) Bacterial pneumonia: Code(s): J15.9 - Unspecified bacterial pneumonia Status: Acute (5) COPD with acute exacerbation: Code(s): J44.1 - Chronic obstructive pulmonary disease with (acute) exacerbation Status: Acute (6) Elevated troponin: Code(s): R79.89 - Other specified abnormal findings of blood chemistry Status: Acute DS: Summary Hospital Course Hospital Course: This is an unfortunately very chronically ill 78-year-old female with PMH morbid obesity, severe end-stage COPD with chronic hypoxic respiratory failure on 3 L O2, pulmonary hypertension, CKD, history of heart failure status post pacemaker implantation, chronic erythrocytosis, sleep disordered breathing not currently on treatment, prior smoker hypertension, paroxysmal atrial fibrillation. She was living with her son and daughter until a few months ago and since she has not been able to walk she has been moved to shelter living at [facility]. For few days the patient has had shortness of breath was brought into the [place] ER. She was found to have blood pressure 180/120 coming down to 126/70, respiratory rate of 25, 91% O2 saturation on 2 L nasal cannula. She was given 1 L normal saline bolus along with ceftriaxone 1 g IV x1, Zithromax 500 mg IV x1, DuoNeb x1. Chest x-ray revealed bilateral pneumonia however pulmonary edema was not excluded. Patient admitted for further workup of bilateral pneumonia and respiratory distress. She was treated with 5 days of ceftriaxone and azithromycin. She was also treated with scheduled nebulizers, Solu-Medrol 60 mg IV x2 and then prednisone 40 mg p.o. q.day. her symptomatology improved and on 11/30 she is stable for discharge back to shelter living at [facility], [place] as her symptomatology has completely resolved. She is a Carlos lift at baseline. She will be prescribed and a 3 days of prednisone 40 mg p.o. q.day. 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 Patient educated about the importance of being compliant with medical therapy including noninvasive ventilator for sleep apnea. 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 The patient was educated about the adverse effects, risk and benefits of medications to which she understood and agreed to the plan above as well. All her questions and concerns were answered to satisfaction otherwise. She also had mild confusion, likely metabolic or hypoxic encephalopathy. Improved. #Acute respiratory failure due to bilateral bacterial pneumonia and acute COPD exacerbation complicated by history of sleep disordered breathing not currently on noninvasive ventilator treatment, pulmonary hypertension -refusing noninvasive ventilator at night -ABG unremarkable. CT head unremarkable. Ammonia level within normal limits -receive scheduled nebulizers and ceftriaxone and azithromycin for 5 days. -wheezing resolved on day of admission 11/30 -back down to her baseline 2 L of nasal cannula on day of discharge #Severe sepsis without shock -presented with respiratory distress, TROY, hypertension, leukocytosis. -treat bilateral pneumonia and UTI -improved # elevated troponin #Paroxysmal atrial fibrillation -troponin mildly elevated on admission. EKG with atrial flutter and controlled ventricular response. No acute isch
[2023-12-01] MEDS: PANTOPRAZOLE 40 MG TABLET PO (09:12)
[2023-12-01] MEDS: APIXABAN 5 MG TABLET PO (09:12)
[2023-12-01] MEDS: predniSONE 20 MG TABLET 40 MG PO (09:12)
[2023-12-01 10:29] LABS: SARS-CoV-2 RNA PCR Negative (Negative)
[2023-12-02 17:23] LABS: Mycoplasma IgM Antibody Titer 41 U/mL
== END 2023-12-01 11:00 | DRG 871 ==
LOC: ANHED 22:49 → ANHIMU 23:37 → ANH3MED 11-28 19:02
PROVIDERS: Admitting Provider Internal Medicine; Emergency Provider Emergency Medicine; PCP Family Medicine; Visit Provider General Practice
DX: A41.9 Sepsis, unspecified organism (principal); G93.41 Metabolic encephalopathy; J15.9 Unspecified bacterial pneumonia; J96.21 Acute and chronic respiratory failure with hypoxia; N17.9 Acute kidney failure, unspecified; I13.0 Hypertensive heart and chronic kidney disease with heart failure and stage 1 through stage 4 chronic kidney disease, or unspecified chronic kidney disease; I50.32 Chronic diastolic (congestive) heart failure; N39.0 Urinary tract infection, site not specified; B96.20 Unspecified Escherichia coli [E. coli] as the cause of diseases classified elsewhere; J44.1 Chronic obstructive pulmonary disease with (acute) exacerbation; E87.5 Hyperkalemia; E66.01 Morbid (severe) obesity due to excess calories; G47.33 Obstructive sleep apnea (adult) (pediatric); I48.0 Paroxysmal atrial fibrillation; I27.20 Pulmonary hypertension, unspecified; J43.9 Emphysema, unspecified; N18.9 Chronic kidney disease, unspecified; R79.89 Other specified abnormal findings of blood chemistry; Z11.52 Encounter for screening for COVID-19; Z20.822 Contact with and (suspected) exposure to COVID-19; Z99.81 Dependence on supplemental oxygen; Z95.0 Presence of cardiac pacemaker; Z87.891 Personal history of nicotine dependence; Z91.199 Patient's noncompliance with other medical treatment and regimen due to unspecified reason
CPT/HCPCS: 36415; 36600; 70450; 71045; 80048; 80053; 81001; 82140; 82375; 82805; 82948; 83036; 83050; 83605; 83690; 83735; 83880; 84145; 84484; 85025; 85027; 85610; 85730; 86738; 87040; 87077; 87086; 87088; 87186; 87635; 87637; 87641; 93005; 94003; 94640; 94660; 96365; 96375; 99285; A9270; G0378; J0456; J0696; J1815; J2765; J2919; J7030; J7040; J7512

== ENCOUNTER 2024-03-31 13:50 | Outpatient (CLI) | payer MEDICARE, SELFPAY ==
--- NOTE | ~2024-03-31 | CT_ITS ---
EXAMINATION:CT diagnostic chest wo con DATE: 03/31/2024 15:49 INDICATION: Chest mass. TECHNIQUE: Computed tomography (CT) of the chest was performed without intravenous contrast. Automate d exposure control and iterative reconstruction technique were employed. The dose-length product (DLP ) was 885.48 mGy-cm. COMPARISON: Chest single view 11/27/2023, chest CT 01/13/2023 FINDINGS: There is moderate emphysema. There is mild atelectasis bilaterally. There are airspace opac ities in left upper lobe, consistent with pneumonia. There are centrilobular nodules in posterior seg ment right upper lobe, consistent with pneumonia. There are trace pleural effusions. Cardiomegaly is noted. There are coronary artery calcifications. There is a left chest wall pacer with leads in the r ight atrium and right ventricle. No pericardial effusion. The central pulmonary arteries are enlarged , consistent with pulmonary arterial hypertension. There is bulky right axillary lymphadenopathy with the largest nodule mass measuring 8.9 x 7.9 cm. There is a 7.8 x 7.8 cm mass centered at the left fi fth rib with a permeative pattern in the right rib and pathologic fracture. There are changes of ante rior fusion procedure in cervical spine. There are widespread lytic and sclerotic lesions of bone. IMPRESSION: 1. Widespread bone lesions including a 7.8 cm mass centered at the left fifth rib, consistent with me tastatic disease. 2. Right axillary lymphadenopathy, consistent with metastatic disease. 3. Pneumonia involving the upper lobes, left worse than right. 4. Moderate emphysema. Reviewed, dictated and finalized at location A. OR CENTER DIRECTOR IMPRESSION: 1. Widespread bone lesions including a 7.8 cm mass centered at the left fifth r ib, consistent with metastatic disease. 2. Right axillary lymphadenopathy, consistent with metastatic disease. 3. Pneumonia involving the upper lobes, left worse than right. 4. Moderate emphysema.
== END 2024-03-31 13:51 | disposition home or self-care (01) ==
PROVIDERS: Visit Provider Internal Medicine
DX: R22.2 Localized swelling, mass and lump, trunk (principal); J18.9 Pneumonia, unspecified organism; J43.9 Emphysema, unspecified
CPT/HCPCS: 71250

== ENCOUNTER 2024-04-04 19:27 | Inpatient (IN) | payer MEDICARE, SELFPAY ==
--- NOTE | ~2024-04-04 | XR_ITS ---
EXAMINATION: XR chest 1V portable DATE: 04/05/2024 04:13 INDICATION: Pneumonia. TECHNIQUE: A single frontal view of the chest was obtained. COMPARISON: Chest single view 11/27/2023, chest CT 03/31/2024 FINDINGS: There are airspace opacities in left perihilar region. No pleural effusion or pneumothorax. There is a 7 cm aggressive mass of left fifth rib. Cardiomegaly is noted. There is a left chest wall pacer with leads in the right atrium and right ventricle. There are changes of anterior fusion proce dure in cervical spine. IMPRESSION: 1. Airspace opacities in left perihilar region, consistent with pneumonia. 2. 7 cm aggressive mass of left fifth rib, consistent with metastatic disease. 3. Cardiomegaly. Reviewed, dictated and finalized at location A. EMIOLOGY INTERNSHIP
--- NOTE | ~2024-04-04 | US_ITS ---
EXAMINATION: US biopsy bone superficial DATE: 04/12/2024 15:10 INDICATION: Left fifth rib mass. TECHNIQUE: The procedure including the risks, benefits, and alternatives was discussed with the patie nt. Risks discussed included bleeding and infection. The patient understood the risks and agreed to p roceed. The skin overlying the left fifth rib was prepped and draped in usual sterile fashion. Anest hetic was administered with 1% lidocaine subcutaneously. An 18 gauge core biopsy needle was then use d to obtain 3 core biopsy specimens under continuous sonographic guidance. The entry site was cleaned and dressed. There were no immediate complications. FINDINGS: Ultrasound images demonstrate the needle in a 7 cm mass of left fifth rib. IMPRESSION: 1. Ultrasound-guided core needle biopsy of a 7 cm mass of left fifth rib. Reviewed, dictated and finalized at location A. CAN OPERATOR
--- NOTE | ~2024-04-04 | NM_ITS ---
EXAMINATION: NM bone scan whole body DATE: 04/06/2024 14:20 INDICATION: Metastatic cancer. TECHNIQUE: 26.4 mCi Tc-99m HDP was administered intravenously. Delayed whole-body scintigrams were o btained. COMPARISON: CT abdomen and pelvis 04/05/2024 FINDINGS: There are widespread foci of increased activity in the bones including the spine, ribs, cla vicles, humeri, pelvis, femora, tibiae, fibulae, and cranium. Many of these findings correlate with s clerotic lesions by CT. IMPRESSION: 1. Widespread osseous metastatic disease. Consider ultrasound-guided core needle biopsy of the large left rib mass. Reviewed, dictated and finalized at location A. EXPEDITOR IMPRESSION: 1. Widespread osseous metastatic disease. Consider ultrasound-guided core needl e biopsy of the large left rib mass.
--- NOTE | ~2024-04-04 | XR_ITS ---
XR abdomen/kub 1V Ordering provider: Dominique Alston MD History: . r/o fecal impaction . Comparison: None. FINDINGS: BOWEL: Fecal impaction is seen in the distal colon suggestive of constipation. Nonobstructive bowel g as pattern. ORGANOMEGALY: None. Soft tissue density seen in the right lower lobe abdomen kidney. Ultrasound evaluation advised. SIGNIFICANT PATHOLOGIC CALCIFICATIONS: None. OTHER: No free air is seen under the diaphragm. Degenerative changes of the spine. IMPRESSION: NO ACUTE ABDOMINAL FINDINGS. Soft tissue density seen inferior to the right kidney. Ultrasound evaluation advised. Constipation. Reviewed, dictated and finalized at location A. LEASE BROKER IMPRESSION: NO ACUTE ABDOMINAL FINDINGS. Soft tissue density seen inferior to the right kidney. Ultrasound evaluation ad vised. Constipation.
--- NOTE | ~2024-04-04 | CT_ITS ---
EXAMINATION: CT brain wo con DATE: 04/05/2024 01:53 INDICATION: Altered mental status. TECHNIQUE: Computed tomography (CT) of the head was performed without intravenous contrast. The mA wa s adjusted according to patient size. Iterative reconstruction technique was employed. The dose-lengt h product was 681.00 mGy-cm. COMPARISON: Head CT 11/28/2023 FINDINGS: There are scattered areas of low attenuation in the cerebral white matter. There is no intr acranial hemorrhage, acute infarction, or abnormal intracranial mass lesion. The ventricles are randall l in size. The orbits are normal. There is fluid in the paranasal sinuses. The mastoid air cells are normal. IMPRESSION: 1. Stable moderate nonspecific cerebral white matter disease, which likely represents chronic small v essel ischemic disease. Reviewed, dictated and finalized at location A. RVISOR PRE WAVE IMPRESSION: 1. Stable moderate nonspecific cerebral white matter disease, which likely repr esents chronic small vessel ischemic disease.
--- NOTE | ~2024-04-04 | CT_ITS ---
EXAMINATION: CT abdomen pelvis w con DATE: 04/05/2024 22:00 INDICATION: Metastatic cancer TECHNIQUE: Computed tomography (CT) of the abdomen and pelvis was performed with 100 mL Omnipaque-350 intravenous contrast. Automated exposure control and iterative reconstruction technique were employe d. The dose-length product was 1549.08 mGy-cm. COMPARISON: CT chest 03/31/2024. FINDINGS: Exam limited by beam hardening from arm down positioning and body habitus. Lower thorax: Mild dependent atelectasis. Trace bilateral pleural effusions. 7.8 cm left lower chest wall mass, with adjacent rib erosion. Pacemaker leads terminating in expected position. Mitral annulu s calcification. Liver: Normal. Biliary/Gallbladder: Cholelithiasis. Mild gallbladder wall hyperemia and minimal pericholecystic flui d. No bile duct dilation. Pancreas: No mass or duct dilation. Spleen: Normal. Adrenals: 1.3 cm indeterminate density right adrenal nodule. Kidneys: No suspicious mass, obstructing stone, or hydronephrosis. Nonobstructing punctate right midp ole calcification. Bilateral renal cortical thinning. GI tract: Distal esophageal and gastric wall edema. No small bowel dilation. The rectum is dilated to 7.1 cm by formed stool. No significant adjacent wall thickening or inflammatory change. Normal appen joyce. Diverticulosis without diverticulitis. Mesentery/Peritoneum: No ascites, mass, or free air. Retroperitoneum: No mass. Pelvis: Pelvic organs are within normal limits. Soft Tissues: Large midline anterior abdominal wall hernia with a wide neck, containing the gallbladd er, and the majority of the unobstructed large and small bowel. Note that portions of the hernia and the right lateral abdominal wall are excluded from the [id number]. Edema within the subcutaneous f at of the right lateral abdominal wall. Bones: No acute osseous finding. Multifocal lytic and sclerotic lesions within the visualized bones. IMPRESSION: Stable 7.8 cm left chest wall mass. Trace bilateral pleural effusions. Mild esophagitis/gastritis. Cholelithiasis with gallbladder wall hyperemia and mild pericholecystic fluid, correlate with biliary labs and symptoms of upper abdominal pain. 1.3 cm right adrenal nodule suspicious for metastatic disease. Fecal impaction without findings to suggest stercoral colitis. Right lateral abdominal wall edema, correlate for findings of contusion or cellulitis. Diffuse osseous metastatic disease. Reviewed, dictated and finalized at location K. TECHNICIAN IMPRESSION: Stable 7.8 cm left chest wall mass. Trace bilateral pleural effusions. Mild esophagitis/gastritis. Cholelithiasis with gallbladder wall hyperemia and mild pericholecystic fluid, correlate with biliary labs and symptoms of upper abdominal pain. 1.3 cm right adrenal nodule suspicious for metastatic disease. Fecal impaction without findings to suggest stercoral colitis. Right lateral abdominal wall edema, correlate for findings of contusion or cell ulitis. Diffuse osseous metastatic disease.
[2024-04-04 19:40] VITALS: BP 123/65; PULSE 66; RESP 20; O2SAT 96
--- NOTE | 2024-04-04 19:47 | PC.NURSE ---
let record show, EKG was completed at 1845 by prior shift.
[2024-04-04 20:20] VITALS: TEMP 36.8
--- NOTE | 2024-04-04 21:45 | ECG_ITS ---
Test Date: 2024-04-04 22:39:32 Measurements Intervals [place] Rate: 65 P: 0 RI: 0 QRS: -23 QRSD: 133 T: 13 QT: 452 QTc: 470 Interpretive Statements ATRIAL FIBRILLATION LEFT BUNDLE BRANCH BLOCK BASELINE ARTIFACT- I, AVR, AVL ABNORMAL ECG Compared to ECG 11/27/2023 20:58:11 NO SIGNIFICANT CHANGE Electronically Signed On 04-05-2024 06:20:33 PSYCHIATRY RESIDENT by Matias Stiles D.O.
--- NOTE | 2024-04-04 21:50 | PC.NURSE ---
RN delegated EKG to [facility] at this time.
[2024-04-04 21:57] LABS: Basophils Percent Auto 0.3 % (0.2-1.2); Eosinophils Absolute Auto 0.2 K/mm3 (0-0.3); Eosinophils Percent Auto 1.4 % (0-4.4); Hematocrit 49.9 % (37.0-47.0); Hemoglobin 16.2 g/dL (12.0-15.0); Immature Granulocyte Absolute 0.11 K/mm3 (0.00-0.031); Immature Granulocyte Percent A 0.8 % (0-0.5); Lymphocytes Absolute Auto 1.35 K/mm3 (0.9-3.2); Lymphocytes Percent Auto 10.1 % (18.3-44.2); Mean Corpuscular HGB Conc 32.5 g/dl (32-36); Mean Corpuscular Hemoglobin 28.9 pg (26-34); Mean Corpuscular Volume 89.1 fl (80-100); Mean Platelet Volume 10.6 fl (7.4-10.4); Monocytes Absolute Auto 0.8 K/mm3 (0.1-0.6); Monocytes Percent Auto 6.2 % (2.6-8.5); Neutrophils Absolute Auto 10.9 K/mm3 (1.3-6.7); Neutrophils Percent Auto 81.2 % (45.5-73.1); Nucleated Red Blood Cells Perc 0.6 % (0.0-0.2); Platelet Count Result 356 k/mm3 (150-375); Red Cell Distribution Width 17.9 % (11.5-14.5); White Blood Count 13.4 K/mm3 (4.5-10.0)
[2024-04-04 22:06] LABS: Alanine Aminotransferase 19 U/L (6-35); Albumin Level 3.8 g/dL (3.5-5.1); Alkaline Phosphatase 185 U/L (38-126); Anion Gap 11 mmol/L (4-12); Aspartate Amino Transferase 35 U/L (14-36); Bilirubin,Total 0.7 mg/dL (0.2-1.3); Blood Urea Nitrogen 98 mg/dL (7-17); Calcium 9.1 mg/dL (8.4-10.2); Carbon Dioxide 30 mmol/L (22-30); Chloride 89 mmol/L (98-107); Estimated CRCL calculation 26 ml/min; Estimated Glomerular Filt Rate 26; Glucose 129 mg/dL (65-110); Potassium 4.7 mmol/L (3.4-5.0); Sodium 130 mmol/L (137-145)
--- NOTE | 2024-04-04 22:23 | PC.NURSE ---
RN sent re-draw blue top to lab at this time.
[2024-04-04 22:44] LABS: INR 1.7; Prothrombin Time 20.3 Seconds (11.1-14.7)
[2024-04-04 22:46] LABS: Partial Thromboplastin Time 34.8 Seconds (22.3-36.8)
[2024-04-05] VITALS (8 sets, daily range): BP systolic 112–134; BP diastolic 54–87; PULSE 62–75; RESP 18; TEMP 35.8–36.8; O2SAT 94–99; BMI 47.3
[2024-04-05] MEDS: CEFEPIME 2 GM/NS 50 ML 2 GM/50 ML BAG IVPB (00:04)
[2024-04-05] MEDS: SODIUM CHLORIDE 0.9% IV 1,000 ML 999 ML IV CONT (00:04)
--- NOTE | 2024-04-05 00:10 | ED.AMS ---
HPI - Altered Mental Status General Chief Complaint: Altered Mental Status Stated Complaint: AMS, ?UTI Time Seen by Provider: 04/04/24 23:56 History of Present Illness HPI narrative: 78-year-old female with a past medical history significant for breast cancer, paroxysmal atrial fibrillation, COPD, CHF. patient presents from her senior care facility for concerns for potential urinary tract infection as patient was confused earlier. Patient states that she feels off balance and disoriented. She is answering all questions appropriately and alert x4 presently which is her baseline. She does have history of breast cancer with metastasis. Not currently going through any kind of chemotherapy or radiation therapy according to the patient. She nurses no chest. Difficulty in breathing, fever, chills, nausea, vomiting, abdominal pain. She relates he underwent a CT scan several days prior on outpatient basis and was found to have a pneumonia as well as metastatic breast cancer to the ribs And lymph nodes. Patient denies any urinary complaints at this time, is sedentary and bed-bound secondary to mobility issues. Is presently on anticoagulation with Eliquis. Related Data Home Medications Medication Instructions Recorded Confirmed calcitriol 0.25 mcg capsule 0.25 mcg PO DAILY 12/20/19 04/05/24 diltiazem HCl 180 mg 180 mg PO HS 12/20/19 04/05/24 capsule,extended release 24 hr (Cardizem CD) fluticasone propionate 50 2 spray intranasal PRN PRN 12/20/19 04/05/24 mcg/actuation nasal Congestion spray,suspension hydrocodone 5 mg-acetaminophen 325 1 tablet PO Q6H PRN Pain 12/20/19 04/05/24 mg tablet hydroxyzine pamoate 50 mg capsule 50 mg PO Q6-8H PRN Itching 12/20/19 04/05/24 letrozole 2.5 mg tablet 2.5 mg PO DAILY 12/20/19 04/05/24 allopurinol 100 mg tablet 200 mg PO DAILY 01/20/22 04/05/24 atorvastatin 10 mg tablet 10 mg PO HS 01/20/22 04/05/24 ergocalciferol (vitamin D2) 1,250 1,250 mcg PO WEEKLY 01/20/22 04/05/24 mcg (50,000 unit) capsule (Vitamin D2) fluticasone fur. 100 mcg-umeclid 1 inh inhalation DAILY 01/20/22 04/05/24 62.5 mcg-vilant 25 mcg inhalat.powder (Trelegy Ellipta) gabapentin 600 mg tablet 1,200 mg PO HS 01/08/23 04/05/24 gabapentin 600 mg tablet 600 mg PO DAILY 01/08/23 04/05/24 latanoprost 0.005 % eye drops 1 drp EACH EYE HS 01/08/23 04/05/24 cetirizine 10 mg tablet 10 mg PO HS 01/29/23 04/05/24 potassium chloride 20 mEq 20 meq PO DAILY 01/29/23 04/05/24 tablet,extended release(part/cryst) pramipexole 0.5 mg tablet 0.5 mg PO HS 01/29/23 04/05/24 Allergies Allergy/AdvReac Type Severity Reaction Status Date / Time rivaroxaban AdvReac Intermediate Other Verified 03/31/23 10:19 Review of Systems Review of Systems: as reviewed above in [facility] Past Medical History Medical History Acute on chronic respiratory failure with hypoxia and hypercapnia At high risk for falls Macdonald esophagus Cancer of right breast (~2017) Status post lumpectomy, chemotherapy, and radiation. CHF exacerbation CHF exacerbation Chronic anticoagulation Coffee ground emesis COPD (chronic obstructive pulmonary disease) Dislocation closed, shoulder RIGHT SHOULDER Duodenal ulcer Hypertension Impaired ambulation Intractable nausea and vomiting Iron deficiency anemia Left hip pain Left leg pain Mitral stenosis Morbid obesity Paroxysmal atrial fibrillation Partial gastric outlet obstruction Pulmonary HTN severe - PA 62 mmHg Ventral incisional hernia without obstruction or gangrene Vomiting Surgical History Surgical History History of fusion of cervical spine C5-C6 fusion after fracture. History of hernia repair History of lumpectomy of right breast For breast cancer. History of permanent cardiac pacemaker placement History of total hysterectomy with bilateral salpingo-oophorectomy (BSO) Status post debridement Left heel wound debridement. Family History Family History Father Congestive heart failure Heart disease Sibling Diabetes mellitus Mother Breast cancer Sibling Heart disease Social History Social History Social History: The patient is originally from [place], but moved to [place] in spring 2019 to live with her daughter however she is now living in her own apartment. She is nonambulatory and transfers with a Carlos. Her daughter and caretakers come in several hours a day. 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 She smoked upwards of 2 packs of cigarettes a day for 40 years and quit in 2009. She denies alcohol and illicit substance use. Her only child, daughter Zoie Peguero, is her surrogate decision maker and she wishes to be a full code. Smoking packs per day: 2 Smoking cigarettes per day: 40.0 Smoking status: Former smoker Tobacco type: cigarettes Additional smoking assessment comments: quit 1989 Alcohol intake: never Substance use: never Do You Feel Safe in your Home?: Yes Lack of Transportation: No Lack of Food: Never True Current Housing: I Have Housing Concerned About Future Housing: No Difficulty Paying Gas/Electric Bills: No Difficulty Paying for Meds: No Currently Unemployed: No Education: Associate Degree Difficulty w/ Childcare or Family Care: No Living arrangements: alone Spiritual care concerns: No Exam Narrative: GENERAL: chronically ill-appearing, morbidly obese, bedbound but not any acute distress, awake alert able answer my questions appropriately. HEAD: [Normocephalic, atraumatic.] EYES: [PERRLA and EOMI.] ENT: Nares clear, no rhinorrhea or epistaxis. Mucous membranes moist. NECK: Supple. CHEST: [Clear to auscultation. No respiratory distress.] Some dilation of the chest wall vessels especially right side but no tenderness to palpation. HEART: [Regular rate and rhythm]. No murmur heard. [Normal peripheral pulses.] ABDOMEN: [Soft, nondistended], [nontender], [No rigidity or guarding] EXTREMITIES: Normal range of motion. [No edema.] SKIN: Warm and dry with no appreciable rashes. No sacral decubitus ulcers, slight maceration of the skin tissues near the sacrum but no ulcerations or obvious signs of infection or tenderness to palpation. NEURO: [No focal deficits]. Alert and oriented [x3.] Answers all my questions appropriately, symmetric motion and strength in both arms and legs. No sensory deficits PSYCH: [Normal mood and affect.] Course Vital Signs Vital signs: Vital Signs Pulse Rate 66 11/24/24 19:40 Respiratory Rate 20 04/04/24 19:40 Blood Pressure 123/65 04/04/24 19:40 Pulse Oximetry 96 04/04/24 19:40 Oxygen Delivery Room Air 04/04/24 19:40 Temperature 36.5 C 04/05/24 05:35 Pulse Rate 75 04/05/24 05:35 Respiratory Rate 18 04/05/24 05:35 Blood Pressure 134/87 04/05/24 05:35 Pulse Oximetry 94 04/05/24 05:53 Oxygen Delivery Nasal Cannula 04/05/24 05:53 Oxygen Flow Rate 3 04/05/24 05:53 MDM - Altered Mental Status MDM Narrative Medical decision making narrative: 78-year-old female with extensive past medical history including metastatic breast cancer, COPD, CHF, debility, CKD. She presents to the emergency room from her senior care facility for initial concerns of potential urinary tract infection as patient felt discoordinated and she had some slight confusion. Present she is awake alert oriented at her baseline and answers all my questions appropriately does not states she feels confused but she does states she feels unsteady. Denies any fever, chills, abdominal pain, urinary complaints. She did have an outpatient CT several days prior which shows pneumonia and metastatic breast cancer to the ribs and lymph nodes. She is afebrile here, is chronically ill-appearing but not any acute distress. No oxygen supplementation needed she is 96% saturation on room air. No tachycardia, blood pressure concerns or fever. Given her recent pneumonia on the CT scan I am concerned that this could be causing the concerns of her mental status but given her significant past medical history intracranial process such as a stroke or brain metastasis cannot be excluded. Electrolyte problems, renal dysfunction with her previous renal impairment are also in the differential. A broad workup was ordered she was empirically started on vancomycin and cefepime for her healthcare associated pneumonia the septic workup was ordered including blood cultures, lactic acid. CT scan of the head was included as well as blood with CBC, CMP, urinalysis. She was given 1 L fluid bolus. Workup revealed a leukocytosis of 13.4, no anemia hemoglobin stable 16.2. coagulation studies show some minor hyponatremia 130 but not severe. BUN and creatinine markedly elevated indicative of acute kidney injury. BUN of 98 and creatinine 1.90. Likely intravascular depletion with prerenal azotemia. Patient was provided fluid bolus here in the emergency department. lactic acid is negative and she does not any hypotension. Repeat vital signs have been stable here in the emergency department. Saturating well at room air. No tachycardia or fever. CMP unremarkable. Urine shows no signs of urinary infection. chest x-ray was independently reviewed by myself and I appreciate some airspace opacities consistent with pneumonia in the left hilar region. There is also a 7 cm aggressive mass of the left 5th rib consistent with metastatic disease. Her head CT was largely unremarkable and interpreted by radiology is stable moderate nonspecific white matter disease consistent with chronic small-vessel ischemic disease. No acute hemorrhage or stroke. I independently reviewed the CT scan And I do not appreciate any kind of acute process either. I had discussions with pharmacy to renally dose her vancomycin and she was placed on the cefepime for her healthcare associated pneumonia. I discussed the case with the hospitalist Dr. Storey over the phone for admission. Patient hemodynamically stable here in the emergency department but does require admission given her multiple organ involvement including acute kidney injury and pneumonia with risk for decompensation on outpatient basis. Patient was accepted to the hospital for continued evaluation treatment. Medical Records Attestation: I reviewed the patient's medical records. Lab Data Attestation: I reviewed the patient's lab results. 04/04/24 21:51 04/04/24 21:51 Labs: Lab Results 04/04/24 04/04/24 04/05/24 Range/Units 21:51 22:18 00:46 WBC 13.4 H (4.5-10.0) K/mm3 RBC 5.60 H (4.2-5.4) M/mm3 Hgb 16.2 H (12.0-15.0) g/dL Hct 49.9 H (37.0-47.0) % MCV 89.1 (80-100) fl MCH 28.9 (26-34) pg MCHC 32.5 (32-36) g/dl RDW 17.9 H (11.5-14.5) % Plt Count 356 D (150-375) k/mm3 MPV 10.6 H (7.4-10.4) fl Immature Gran % (Auto) 0.8 H (0-0.5) % Neut % (Auto) 81.2 H (45.5-73.1) % Lymph % (Auto) 10.1 L (18.3-44.2) % Gilmer % (Auto) 6.2 (2.6-8.5) % Eos % (Auto) 1.4 (0-4.4) % Baso % (Auto) 0.3 (0.2-1.2) % Lymph # (Auto) 1.35 (0.9-3.2) K/mm3 Gilmer # (Auto) 0.8 H (0.1-0.6) K/mm3 Eos # (Auto) 0.2 (0-0.3) K/mm3 Baso # (Auto) 0.0 (0.0-0.1) K/mm3 Abs Immat Gran (auto) 0.11 H (0.00-0.031) K/mm3 Absolute Neuts (auto) 10.9 H (1.3-6.7) K/mm3 Absolute Nucleated RBC 0.080 H (0.0-0.012) K/mm3 Nucleated RBC % 0.6 H (0.0-0.2) % PT 20.3 H (11.1-14.7) Seconds INR 1.7 APTT 34.8 (22.3-36.8) Seconds Sodium 130 L (137-145) mmol/L Potassium 4.7 (3.4-5.0) mmol/L Chloride 89 L (98-107) mmol/L Carbon Dioxide 30 (22-30) mmol/L Anion Gap 11 (4-12) mmol/L BUN 98 H D (7-17) mg/dL Creatinine 1.90 H (0.7-1.0) mg/dL Estim Creat Clear Calc 26 ml/min Estimated GFR 26 L (59 - ) Glucose 129 H (65-110) mg/dL Lactic Acid (0.7-2.0) mmol/L Calcium 9.1 (8.4-10.2) mg/dL Total Bilirubin 0.7 (0.2-1.3) mg/dL AST 35 (14-36) U/L ALT 19 (6-35) U/L Alkaline Phosphatase 185 H (38-126) U/L Total Protein 8.0 (6.3-8.2) g/dL Albumin 3.8 (3.5-5.1) g/dL Urine Color Yellow (Yellow) Urine Appearance Clear (Clear) Urine pH 5.0 (5.0-9.0) Ur Specific Palmer 1.013 (1.001-1.035) Urine Protein Negative (Negative) mg/dL Urine Glucose (UA) Negative (Negative) mg/dL Urine Ketones Negative (Negative) mg/dL Ur Blood (Man) Negative (Negative) Urine Nitrate Negative (Negative) Urine Bilirubin Negative (Negative) Urine Urobilinogen 1.0 (<2.0) mg/dL Add Ur Microanalysis Reviewed Leukocyte Esterase Rfl Trace H (Negative) GERDA/UL Urine RBC 0-2 (0-2) /hpf Urine WBC 0-5 (0-3) /hpf Ur Squamous Epith Cells None seen (Few) /hpf Urine Bacteria None seen /hpf Urine Casts 6-10 Nasal MRSA (PCR) (NOT DETECTE) 04/05/24 04/05/24 Range/Units 01:15 03:13 WBC (4.5-10.0) K/mm3 RBC (4.2-5.4) M/mm3 Hgb (12.0-15.0) g/dL Hct (37.0-47.0) % MCV (80-100) fl MCH (26-34) pg MCHC (32-36) g/dl RDW (11.5-14.5) % Plt Count (150-375) k/mm3 MPV (7.4-10.4) fl Immature Gran % (Auto) (0-0.5) % Neut % (Auto) (45.5-73.1) % Lymph % (Auto) (18.3-44.2) % Gilmer % (Auto) (2.6-8.5) % Eos % (Auto) (0-4.4) % Baso % (Auto) (0.2-1.2) % Lymph # (Auto) (0.9-3.2) K/mm3 Gilmer # (Auto) (0.1-0.6) K/mm3 Eos # (Auto) (0-0.3) K/mm3 Baso # (Auto) (0.0-0.1) K/mm3 Abs Immat Gran (auto) (0.00-0.031) K/mm3 Absolute Neuts (auto) (1.3-6.7) K/mm3 Absolute Nucleated RBC (0.0-0.012) K/mm3 Nucleated RBC % (0.0-0.2) % PT (11.1-14.7) Seconds INR APTT (22.3-36.8) Seconds Sodium (137-145) mmol/L Potassium (3.4-5.0) mmol/L Chloride (98-107) mmol/L Carbon Dioxide (22-30) mmol/L Anion Gap (4-12) mmol/L BUN (7-17) mg/dL Creatinine (0.7-1.0) mg/dL Estim Creat Clear Calc ml/min Estimated GFR (59 - ) Glucose (65-110) mg/dL Lactic Acid 1.6 (0.7-2.0) mmol/L Calcium (8.4-10.2) mg/dL Total Bilirubin (0.2-1.3) mg/dL AST (14-36) U/L ALT (6-35) U/L Alkaline Phosphatase (38-126) U/L Total Protein (6.3-8.2) g/dL Albumin (3.5-5.1) g/dL Urine Color (Yellow) Urine Appearance (Clear) Urine pH (5.0-9.0) Ur Specific Palmer (1.001-1.035) Urine Protein (Negative) mg/dL Urine Glucose (UA) (Negative) mg/dL Urine Ketones (Negative) mg/dL Ur Blood (Man) (Negative) Urine Nitrate (Negative) Urine Bilirubin (Negative) Urine Urobilinogen (<2.0) mg/dL Add Ur Microanalysis Leukocyte Esterase Rfl (Negative) GERDA/UL Urine RBC (0-2) /hpf Urine WBC (0-3) /hpf Ur Squamous Epith Cells (Few) /hpf Urine Bacteria /hpf Urine Casts Nasal MRSA (PCR) Not detected (NOT DETECTE) Imaging Data Attestation: I personally reviewed and interpreted this imaging study as follows: Critical Care Time Critical Care Time Critical Care Time: Yes Total Critical Care Time: 50 Discharge Plan Discharge Clinical Impression: HCAP (healthcare-associated pneumonia), Metastatic malignant neoplasm to breast, TROY (acute kidney injury), Acute prerenal azotemia Patient Disposition: Still a Patient Condition: Stable Time of Disposition: 04:30
--- NOTE | 2024-04-05 00:23 | PC.NURSE ---
patient has been cleaned and bedding changed.
[2024-04-05 01:05] LABS: Add Urine Microscopic? YES; Appearance Urine Clear (Clear); Bacteria Urine None Seen /hpf; Bilirubin Urine Negative (Negative); Blood Urine Negative (Negative); Color Urine Yellow (Yellow); Glucose Urine UA Negative (Negative); Ketones Urine Negative (Negative); Leukocyte Esterase Ur Trace LEU/UL (Negative); Need Manual Microscopic Reviewed; Nitrate Urine Negative (Negative); Protein Urine Negative (Negative); RBC Urine 0-2 /hpf (0-2); Specific Grav Ur 1.013 (1.001-1.035); Squamous Epithelial Cell Urine None Seen /hpf (Few); WBC Urine 0-5 /hpf (0-3)
[2024-04-05] MEDS: VANCOMYCIN 1,750 MG/NS 500 ML 1,750 MG/500 ML BAG 250 MG IVPB (01:14)
[2024-04-05 01:30] LABS: Lactic Acid Reflex 1.6 mmol/L (0.7-2.0)
[2024-04-05 04:40] LABS: MRSA (PCR) NOT DETECTED (NOT DETECTE)
--- NOTE | 2024-04-05 05:47 | ADMGEN ---
This patient, Ashley Croft, was admitted to [facility] Surg Room 312-01. Patient/family oriented to hospital policies and general routines including ID bracelet, bed and alarms, visiting hours, pain management, procedures, bathroom and other care routines, personal items, smoking policy, room service/diet, and visiting hours. Information on how to activate the Rapid Response Team has been discussed. Patient/Family are encouraged to report perceived risks to care and to ask questions if they do not understand what they are told or what they should do.
[2024-04-05] MEDS: allopurinoL 100 MG TABLET 200 MG PO (09:02)
[2024-04-05] MEDS: FERROUS SULFATE 325 MG TABLET DR PO (09:02)
[2024-04-05] MEDS: predniSONE 20 MG TABLET 40 MG PO (09:02)
[2024-04-05] MEDS: EMPAGLIFLOZIN 10 MG TABLET PO (09:02)
[2024-04-05] MEDS: PANTOPRAZOLE 40 MG TABLET PO (09:03)
[2024-04-05] MEDS: GABAPENTIN 300 MG CAPSULE 600 MG PO (09:03)
[2024-04-05] MEDS: APIXABAN 5 MG TABLET PO ×2 (09:04→20:13)
[2024-04-05] MEDS: SPIRONOLACTONE 25 MG TABLET 50 MG PO (09:04)
[2024-04-05] MEDS: calcitrioL 0.25 MCG CAPSULE PO (09:04)
[2024-04-05] MEDS: AZITHROMYCIN 250 MG TABLET 500 MG PO (09:04)
[2024-04-05] MEDS: LETROZOLE (*CHEMO) 2.5 MG TABLET PO (09:04)
[2024-04-05] MEDS: CEFEPIME 1 GM/NS 50 ML 1 GM/50 ML BAG IVPB ×2 (09:05→20:18)
--- NOTE | 2024-04-05 09:28 | P.HP_ITS ---
H&P: HPI History of Present Illness Date/Time: 04/05/24 09:28 Chief Complaint: Patient is a 78 year old female that presented to the emergency room with altered mental status. Past medical history significant for breast cancer, paroxysmal atrial fibrillation, COPD, CHF. Patient presented from her snf facility for concerns for potential urinary tract infection as patient was confused earlier. Patient states that she feels off balance and disoriented. She is answering all questions appropriately and alert x4 presently which is her baseline. She does have history of breast cancer with metastasis. Not currently going through any kind of chemotherapy or radiation therapy according to the patient. She relayed in the ER that she underwent a CT scan several days prior on outpatient basis and was found to have a pneumonia as well as metastatic breast cancer to the ribs and lymph nodes. Patient is asking to see oncologist. Patient denies chest pain, palpitations, headache, dizziness, nausea, vomiting, or burning with urination. Patient reports that she gets out of bed with a carlos lift and uses a wheelchair. Is presently on anticoagulation with Eliquis. Baseline 02@2LNC. Care coordination spoke with patient's daughter Zoie that is her POA. Patient is a nursing home resident of [facility] [place]. Chest X-ray showed: IMPRESSION: 1. Airspace opacities in left perihilar region, consistent with pneumonia. 2. 7 cm aggressive mass of left fifth rib, consistent with metastatic disease. 3. Cardiomegaly. Head CT showed: Stable moderate nonspecific cerebral white matter disease, which likely represents chronic small vessel ischemic disease. WBC 16.2, UA negative. Blood cultures drawn, MRSA negative. Review of Systems Review of Systems: All systems reviewed & are unremarkable except as noted in HPI and below PMFSH Past Medical History Medical History Acute on chronic respiratory failure with hypoxia and hypercapnia At high risk for falls Macdonald esophagus Cancer of right breast (~2017) Status post lumpectomy, chemotherapy, and radiation. CHF exacerbation CHF exacerbation Chronic anticoagulation Coffee ground emesis COPD (chronic obstructive pulmonary disease) Dislocation closed, shoulder RIGHT SHOULDER Duodenal ulcer Hypertension Impaired ambulation Intractable nausea and vomiting Iron deficiency anemia Left hip pain Left leg pain Mitral stenosis Morbid obesity Paroxysmal atrial fibrillation Partial gastric outlet obstruction Pulmonary HTN severe - PA 62 mmHg Ventral incisional hernia without obstruction or gangrene Vomiting Surgical History Surgical History History of fusion of cervical spine C5-C6 fusion after fracture. History of hernia repair History of lumpectomy of right breast For breast cancer. History of permanent cardiac pacemaker placement History of total hysterectomy with bilateral salpingo-oophorectomy (BSO) Status post debridement Left heel wound debridement. Family History Family History Father Congestive heart failure Heart disease Sibling Diabetes mellitus Mother Breast cancer Sibling Heart disease Social History Social History Social History: The patient is originally from [place], but moved to [place] in spring 2019 to live with her daughter however she is now living in her own apartment. She is nonambulatory and transfers with a Carlos. Her daughter and caretakers come in several hours a day. 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 She smoked upwards of 2 packs of cigarettes a day for 40 years and quit in 2009. She denies alcohol and illicit substance use. Her only child, daughter Zoie Peguero, is her surrogate decision maker and she wishes to be a full code. Smoking packs per day: 2 Smoking cigarettes per day: 40.0 Smoking status: Former smoker Tobacco type: cigarettes Additional smoking assessment comments: quit 1989 Alcohol intake: never Substance use: never Do You Feel Safe in your Home?: Yes Lack of Transportation: No Lack of Food: Never True Current Housing: I Have Housing Concerned About Future Housing: No Difficulty Paying Gas/Electric Bills: No Difficulty Paying for Meds: No Currently Unemployed: No Education: Associate Degree Difficulty w/ Childcare or Family Care: No Living arrangements: alone Spiritual care concerns: No Meds Home Medications and Allergies Home Medications Medication Instructions Recorded Confirmed Type calcitriol 0.25 mcg capsule 0.25 mcg PO DAILY 12/20/19 04/05/24 History diltiazem HCl 180 mg 180 mg PO HS 12/20/19 04/05/24 History capsule,extended release 24 hr (Cardizem CD) fluticasone propionate 50 2 spray intranasal PRN PRN 12/20/19 04/05/24 History mcg/actuation nasal Congestion spray,suspension hydrocodone 5 mg-acetaminophen 325 1 tablet PO Q6H PRN Pain 12/20/19 04/05/24 History mg tablet hydroxyzine pamoate 50 mg capsule 50 mg PO Q6-8H PRN Itching 12/20/19 04/05/24 History letrozole 2.5 mg tablet 2.5 mg PO DAILY 12/20/19 04/05/24 History albuterol sulfate 90 mcg/actuation 2 puff inhalation QIDRT PRN 05/24/21 04/05/24 Rx aerosol inhaler (Proventil HFA) Shortness Of Breath #6.7 grams allopurinol 100 mg tablet 200 mg PO DAILY 01/20/22 04/05/24 History atorvastatin 10 mg tablet 10 mg PO HS 01/20/22 04/05/24 History ergocalciferol (vitamin D2) 1,250 1,250 mcg PO WEEKLY 01/20/22 04/05/24 History mcg (50,000 unit) capsule (Vitamin D2) fluticasone fur. 100 mcg-umeclid 1 inh inhalation DAILY 01/20/22 04/05/24 History 62.5 mcg-vilant 25 mcg inhalat.powder (Trelegy Ellipta) apixaban 5 mg tablet (Eliquis) 5 mg PO Q12HR #60 tabs 01/25/22 04/05/24 Rx pantoprazole 40 mg tablet,delayed 40 mg PO QAM #30 tabs 01/25/22 04/05/24 Rx release gabapentin 600 mg tablet 1,200 mg PO HS 01/08/23 04/05/24 History gabapentin 600 mg tablet 600 mg PO DAILY 01/08/23 04/05/24 History latanoprost 0.005 % eye drops 1 drp EACH EYE HS 01/08/23 04/05/24 History bumetanide 1 mg tablet 2 mg PO DAILY@0800 #30 tabs 01/25/23 04/05/24 Rx empagliflozin 10 mg tablet 10 mg PO DAILY #30 tabs 01/25/23 04/05/24 Rx (Jardiance) ferrous sulfate 325 mg PO DAILY 30 days ##0 01/25/23 04/05/24 Rx spironolactone 25 mg tablet 50 mg PO QAM #30 tabs 01/25/23 04/05/24 Rx cetirizine 10 mg tablet 10 mg PO HS 01/29/23 04/05/24 History potassium chloride 20 mEq 20 meq PO DAILY 01/29/23 04/05/24 History tablet,extended release(part/cryst) pramipexole 0.5 mg tablet 0.5 mg PO HS 01/29/23 04/05/24 History prednisone 20 mg tablet 40 mg PO DAILY@0800 3 days #6 tabs 12/01/23 04/05/24 Rx Allergies Allergy/AdvReac Type Severity Reaction Status Date / Time rivaroxaban AdvReac Intermediate Other Verified 03/31/23 10:19 Vital Signs Vital Signs - 24 hr 04/04/24 19:40 04/04/24 20:20 04/05/24 00:25 Temperature 98.2 F 98.2 F Pulse Rate 66 Respiratory Rate 20 Blood Pressure 123/65 Pulse Oximetry 96 Oxygen Delivery Room Air Oxygen Flow Rate Fraction of Inspired Oxygen 04/05/24 05:53 04/05/24 05:35 04/05/24 08:51 Temperature 97.7 F Pulse Rate 75 Respiratory Rate 18 Blood Pressure 134/87 Pulse Oximetry 94 99 94 Oxygen Delivery Nasal Cannula Nasal Cannula Oxygen Flow Rate 3 3 Fraction of Inspired Oxygen 32 Exam Const: General: comfortable and no acute distress Eyes: Sclera: sclerae normal Pupils: Equal, round and reactive pupils present Neck: Neck: supple Resp: Effort & Inspection: normal respiratory effort Auscultation: diminished lung sounds Cardio: Rhythm: abnormal rhythm irregularly irregular GI: GI Palp: Yes Soft to palpation Auscultation: normal bowel sounds Other: obese Skin: General skin exam: no rashes or lesions noted Neuro: Speech: normal speech Other: A&Ox3. Extrem: General: no pedal edema Psych: Affect: normal affect H&P: Results Labs Labs: Short CBC 04/04/24 Range/Units 21:51 WBC 13.4 H (4.5-10.0) K/mm3 Hgb 16.2 H (12.0-15.0) g/dL Hct 49.9 H (37.0-47.0) % Plt Count 356 D (150-375) k/mm3 BMP 04/04/24 21:51 Sodium 130 L Potassium 4.7 Chloride 89 L Carbon Dioxide 30 BUN 98 H D Creatinine 1.90 H Glucose 129 H Calcium 9.1 Liver Function 04/04/24 Range/Units 21:51 Total Bilirubin 0.7 (0.2-1.3) mg/dL AST 35 (14-36) U/L ALT 19 (6-35) U/L Alkaline Phosphatase 185 H (38-126) U/L Albumin 3.8 (3.5-5.1) g/dL Urine 04/05/24 Range/Units 00:46 Urine Color Yellow (Yellow) Urine Appearance Clear (Clear) Urine pH 5.0 (5.0-9.0) Ur Specific [place] 1.013 (1.001-1.035) Urine Protein Negative (Negative) mg/dL Urine Glucose (UA) Negative (Negative) mg/dL Assessment and Plan Assessment and plan (1) Pneumonia: Code(s): J18.9 - Pneumonia, unspecified organism Status: Acute Assessment and Plan: * Chest X-ray showed: IMPRESSION: 1. Airspace opacities in left perihilar region, consistent with pneumonia. 2. 7 cm aggressive mass of left fifth rib, consistent with metastatic disease. 3. Cardiomegaly. * 02@2LNC at baseline. * Receiving Cefepime 1 gm IVPB q 12 and Azithromycin 500 mg PO daily. * Continue inhalers. (2) Metastatic malignant neoplasm to breast: Code(s): C79.81 - Secondary malignant neoplasm of breast Status: Acute Assessment and Plan: * Chest X-ray showed 7 cm aggressive mass of left fifth rib, consistent with metastatic disease. * Oncology consult. (3) Paroxysmal atrial fibrillation: Code(s): I48.0 - Paroxysmal atrial fibrillation Status: Acute Assessment and Plan: * EKG showed AFib with left bundle branch block rate 65 with QTc 470. * Eliquis 5 mg PO BID * Diltiazem HCL CD 180 mg at bedtime. (4) COPD (chronic obstructive pulmonary disease): Code(s): J44.9 - Chronic obstructive pulmonary disease, unspecified Status: Acute Assessment and Plan: * Trelegy 100-62.5-25 mcg 1 puff daily. (5) Acute kidney injury superimposed on CKD: Code(s): N17.9 - Acute kidney failure, unspecified; N18.9 - Chronic kidney disease, unspecified Status: Acute Assessment and Plan: * Creatinine 1.90>1.50 * Hold Bumex today. * Monitor labs. (6) Acute respiratory failure with hypoxia: Code(s): J96.01 - Acute respiratory failure with hypoxia Status: Acute Assessment and Plan: * 02@2LNC (7) Sleep apnea: Code(s): G47.30 - Sleep apnea, unspecified Status: Acute Assessment and Plan: * BIPAP at night (8) Morbid obesity: Code(s): E66.01 - Morbid (severe) obesity due to excess calories Status: Acute Assessment and Plan: * Heart healthy diet Quality VTE Prophylaxis VTE prophylaxis: pharmacologic ordered Hospitalist MIPS Advance Care Plan I have confirmed that the patient's Advanced Care Plan is present, code status is documented, or surrogate decision maker is listed in patient medical record.: Yes Medication Reconciliation I have utilized all available resources to obtain, update and review the patients current medications (includes all prescriptions, OTC, herbals, cannabis, and nutritional supplements).: Yes
[2024-04-05 12:26] LABS: Basophils Percent Auto 0.2 % (0.2-1.2); Eosinophils Absolute Auto 0.1 K/mm3 (0-0.3); Eosinophils Percent Auto 0.4 % (0-4.4); Hematocrit 48.9 % (37.0-47.0); Hemoglobin 15.3 g/dL (12.0-15.0); Immature Granulocyte Absolute 0.14 K/mm3 (0.00-0.031); Immature Granulocyte Percent A 0.9 % (0-0.5); Lymphocytes Absolute Auto 0.66 K/mm3 (0.9-3.2); Lymphocytes Percent Auto 4.1 % (18.3-44.2); Mean Corpuscular HGB Conc 31.3 g/dl (32-36); Mean Corpuscular Hemoglobin 28.6 pg (26-34); Mean Corpuscular Volume 91.4 fl (80-100); Mean Platelet Volume 10.3 fl (7.4-10.4); Monocytes Absolute Auto 0.5 K/mm3 (0.1-0.6); Monocytes Percent Auto 3.2 % (2.6-8.5); Neutrophils Absolute Auto 14.8 K/mm3 (1.3-6.7); Neutrophils Percent Auto 91.2 % (45.5-73.1); Nucleated Red Blood Cells Perc 0.1 % (0.0-0.2); Platelet Count Result 327 k/mm3 (150-375); Red Blood Count 5.35 M/mm3 (4.2-5.4); Red Cell Distribution Width 17.6 % (11.5-14.5); White Blood Count 16.2 K/mm3 (4.5-10.0)
[2024-04-05 12:46] LABS: Alanine Aminotransferase 17 U/L (6-35); Albumin Level 3.5 g/dL (3.5-5.1); Alkaline Phosphatase 147 U/L (38-126); Anion Gap 7 mmol/L (4-12); Aspartate Amino Transferase 31 U/L (14-36); Bilirubin,Total 0.7 mg/dL (0.2-1.3); Blood Urea Nitrogen 84 mg/dL (7-17); Calcium 8.8 mg/dL (8.4-10.2); Carbon Dioxide 29 mmol/L (22-30); Chloride 95 mmol/L (98-107); Estimated CRCL calculation 32 ml/min; Estimated Glomerular Filt Rate 34; Glucose 161 mg/dL (65-110); Potassium 4.8 mmol/L (3.4-5.0); Sodium 131 mmol/L (137-145)
[2024-04-05 13:16] LABS: Atypical Lymphocytes Present; Platelet Estimate Adequate (Adequate); Schistocytes None Seen
[2024-04-05] MEDS: HYDROcodone/acetaminophen (*CRX) 5-325 MG TABLET 1 TAB PO (16:37)
--- NOTE | 2024-04-05 18:30 | PDONCCN ---
HPI - Date of Consult Date/Time: 04/05/24 18:30 Requesting Physician: Abraham Storey MD Primary Care Provider: UNKNOWN,DOCTOR - Consult Narrative Reason for consult: Metastatic bone lesions Narrative: Ashley Croft is a 78 year old female with history of right-sided breast cancer status post lumpectomy diagnosed more than 4 years ago at then subsequent radiation and chemotherapy. According to the patient he has been taking endocrine therapy since then. He was following up with the oncologist at [facility]. Patient is the poor historian came into the hospital with mental status changes. She lumps bumps and lymphadenopathy. Denies any bone pain. Patient had CT scan chest done on March 31 showed widespread bone lesions including 7.8 cm mass in the left 5th rib consistent with metastatic disease along with right axillary lymphadenopathy and pneumonia involving the upper lobes. Review of Systems - Review of Systems All systems reviewed & are unremarkable except as noted in HPI and [facility] Medical History: Medical History (Last Reviewed 04/05/24 @ 00:22 by Samuel Patel MD) Acute on chronic respiratory failure with hypoxia and hypercapnia At high risk for falls Macdonald esophagus Cancer of right breast Onset Date: ~2016 Status post lumpectomy, chemotherapy, and radiation. CHF exacerbation CHF exacerbation Chronic anticoagulation Coffee ground emesis COPD (chronic obstructive pulmonary disease) Dislocation closed, shoulder RIGHT SHOULDER Duodenal ulcer Hypertension Impaired ambulation Intractable nausea and vomiting Iron deficiency anemia Left hip pain Left leg pain Mitral stenosis Morbid obesity Paroxysmal atrial fibrillation Partial gastric outlet obstruction Pulmonary HTN severe - PA 62 mmHg Ventral incisional hernia without obstruction or gangrene Vomiting Surgical History: Surgical History (Last Reviewed 04/05/24 @ 00:22 by Samuel Patel MD) History of fusion of cervical spine C5-C6 fusion after fracture. History of hernia repair History of lumpectomy of right breast For breast cancer. History of permanent cardiac pacemaker placement History of total hysterectomy with bilateral salpingo-oophorectomy (BSO) Status post debridement Left heel wound debridement. Family History: Family History (Last Reviewed 04/05/24 @ 05:10 by Melissa Freed RN) Father Congestive heart failure Heart disease Sibling Diabetes mellitus Mother Breast cancer Sibling Heart disease - Social History Social History: Social History (Last Reviewed 11/25/24 @ 00:22 by Samuel Patel MD) Alcohol Use: Alcohol intake: never Substance Use: Substance use: never Others: Spiritual care concerns: No Living Arrangements: Living arrangements: alone Smoking Status: Smoking status: Former smoker Tobacco type: cigarettes Approximate Smoking End Date: 1989 Smoking Pack-years: Smoking packs per day: 2 Smoking cigarettes per day: 40.0 Comments: Additional smoking assessment comments: quit 1989 Social Determinants of Health: Do You Feel Safe in your Home?: Yes Has the Lack of Transportation Kept You From Medical Appointments or From Getting Medications?: No Within the Past 12 Months, Were You Worried Whether Your Food Would Run Out Before You Got Money to Buy More?: Never True What is Your Housing Situation Today?: I Have Housing Are You Worried That in the Next 2 Months, You May Not Have Your Own Housing to Live In?: No Do You Have Trouble Paying Your Heating Or Electricity Bill?: No Do You Have Trouble Paying For Medicines?: No Are You Currently Unemployed and Looking for Work?: No Highest Level of Education Completed: Associate Degree Do You Have Trouble With Childcare or the Care of a Family Member?: No Exam - Vital Signs Vital Signs - 24 hr 04/04/24 19:40 04/04/24 20:20 04/05/24 00:25 Temperature 36.8 C 36.8 C Pulse Rate 66 Respiratory Rate 20 Blood Pressure 123/65 Pulse Oximetry 96 Oxygen Delivery Room Air Oxygen Flow Rate Fraction of Inspired Oxygen 04/05/24 05:53 04/05/24 05:35 04/05/24 08:51 Temperature 36.5 C Pulse Rate 75 Respiratory Rate 18 Blood Pressure 134/87 Pulse Oximetry 94 99 94 Oxygen Delivery Nasal Cannula Nasal Cannula Oxygen Flow Rate 3 3 Fraction of Inspired Oxygen 32 04/05/24 08:00 04/05/24 13:57 Temperature 36.8 C Pulse Rate 67 Respiratory Rate 18 Blood Pressure 112/67 Pulse Oximetry 94 98 Oxygen Delivery Nasal Cannula Oxygen Flow Rate 3 Fraction of Inspired Oxygen - Exam HEENT: EOMI, PERRLA, mucous membranes moist and pink Neck: supple Lungs: clear to auscultation, normal air movement Heart: no murmurs, gallops, or rubs, regular rhythm, regular rate Abdomen: abdomen soft, non-distended, normal bowel sounds Extremities: normal pulses Integumentary: no abnormalities Neurological: normal speech Psychological: mental status NL, mood NL (Bilateral breast examination showed no masses ) - Lab Results Laboratory Last Values WBC 16.2 K/mm3 (4.5-10.0) H 04/05/24 12:17 RBC 5.35 M/mm3 (4.2-5.4) 04/05/24 12:17 Hgb 15.3 g/dL (12.0-15.0) H 04/05/24 12:17 Hct 48.9 % (37.0-47.0) H 04/05/24 12:17 MCV 91.4 fl (80-100) 04/05/24 12:17 MCH 28.6 pg (26-34) 04/05/24 12:17 MCHC 31.3 g/dl (32-36) L 04/05/24 12:17 RDW 17.6 % (11.5-14.5) H 04/05/24 12:17 Plt Count 327 k/mm3 (150-375) 04/05/24 12:17 MPV 10.3 fl (7.4-10.4) 04/05/24 12:17 Immature Gran % (Auto) 0.9 % (0-0.5) H 04/05/24 12:17 Neut % (Auto) 91.2 % (45.5-73.1) H 04/05/24 12:17 Lymph % (Auto) 4.1 % (18.3-44.2) L 04/05/24 12:17 [place] % (Auto) 3.2 % (2.6-8.5) 04/05/24 12:17 Eos % (Auto) 0.4 % (0-4.4) 04/05/24 12:17 Baso % (Auto) 0.2 % (0.2-1.2) 04/05/24 12:17 Lymph # (Auto) 0.66 K/mm3 (0.9-3.2) L 04/05/24 12:17 [place] # (Auto) 0.5 K/mm3 (0.1-0.6) 04/05/24 12:17 Eos # (Auto) 0.1 K/mm3 (0-0.3) 04/05/24 12:17 Baso # (Auto) 0.0 K/mm3 (0.0-0.1) 04/05/24 12:17 Abs Immat Gran (auto) 0.14 K/mm3 (0.00-0.031) H 04/05/24 12:17 Absolute Neuts (auto) 14.8 K/mm3 (1.3-6.7) H 04/05/24 12:17 Absolute Nucleated RBC 0.020 K/mm3 (0.0-0.012) H 04/05/24 12:17 Nucleated RBC % 0.1 % (0.0-0.2) 04/05/24 12:17 Atypical Lymphocytes Present 04/05/24 12:17 Platelet Estimate Adequate (Adequate) 04/05/24 12:17 Schistocytes None seen 04/05/24 12:17 PT 20.3 Seconds (11.1-14.7) H 04/04/24 22:18 INR 1.7 04/04/24 22:18 APTT 34.8 Seconds (22.3-36.8) 04/04/24 22:18 Sodium 131 mmol/L (137-145) L 04/05/24 12:17 Potassium 4.8 mmol/L (3.4-5.0) 04/05/24 12:17 Chloride 95 mmol/L (98-107) L 04/05/24 12:17 Carbon Dioxide 29 mmol/L (22-30) 04/05/24 12:17 Anion Gap 7 mmol/L (4-12) 04/05/24 12:17 BUN 84 mg/dL (7-17) H D 04/05/24 12:17 Creatinine 1.50 mg/dL (0.7-1.0) H 04/05/24 12:17 Estim Creat Clear Calc 32 ml/min 04/05/24 12:17 Estimated GFR 34 (59-) L 04/05/24 12:17 Glucose 161 mg/dL (65-110) H 04/05/24 12:17 Lactic Acid 1.6 mmol/L (0.7-2.0) 04/05/24 01:15 Calcium 8.8 mg/dL (8.4-10.2) 04/05/24 12:17 Total Bilirubin 0.7 mg/dL (0.2-1.3) 04/05/24 12:17 AST 31 U/L (14-36) 04/05/24 12:17 ALT 17 U/L (6-35) 04/05/24 12:17 Alkaline Phosphatase 147 U/L (38-126) H 04/05/24 12:17 Total Protein 7.0 g/dL (6.3-8.2) 04/05/24 12:17 Albumin 3.5 g/dL (3.5-5.1) 04/05/24 12:17 Urine Color Yellow (Yellow) 04/05/24 00:46 Urine Appearance Clear (Clear) 04/05/24 00:46 Urine pH 5.0 (5.0-9.0) 04/05/24 00:46 Ur Specific [place] 1.013 (1.001-1.035) 04/05/24 00:46 Urine Protein Negative mg/dL (Negative) 04/05/24 00:46 Urine Glucose (UA) Negative mg/dL (Negative) 04/05/24 00:46 Urine Ketones Negative mg/dL (Negative) 04/05/24 00:46 Ur Blood (Man) Negative (Negative) 04/05/24 00:46 Urine Nitrate Negative (Negative) 04/05/24 00:46 Urine Bilirubin Negative (Negative) 04/05/24 00:46 Urine Urobilinogen 1.0 mg/dL (<2.0) 04/05/24 00:46 Add Ur Microanalysis Reviewed 04/05/24 00:46 Leukocyte Esterase Rfl Trace GERDA/UL (Negative) H 04/05/24 00:46 Urine RBC 0-2 /hpf (0-2) 04/05/24 00:46 Urine WBC 0-5 /hpf (0-3) 04/05/24 00:46 Ur Squamous Epith Cells None seen /hpf (Few) 04/05/24 00:46 Urine Bacteria None seen /hpf 04/05/24 00:46 Urine Casts 6-10 04/05/24 00:46 Nasal MRSA (PCR) Not detected (NOT DETECTE) 04/05/24 03:13 Meds Home Medications Medication Instructions Recorded Confirmed Type calcitriol 0.25 mcg capsule 0.25 mcg PO DAILY 12/20/19 04/05/24 History diltiazem HCl 180 mg 180 mg PO HS 12/20/19 04/05/24 History capsule,extended release 24 hr (Cardizem CD) fluticasone propionate 50 2 spray intranasal PRN PRN 12/20/19 04/05/24 History mcg/actuation nasal Congestion spray,suspension hydrocodone 5 mg-acetaminophen 325 1 tablet PO Q6H PRN Pain 12/20/19 04/05/24 History mg tablet hydroxyzine pamoate 50 mg capsule 50 mg PO Q6-8H PRN Itching 12/20/19 04/05/24 History letrozole 2.5 mg tablet 2.5 mg PO DAILY 12/20/19 04/05/24 History albuterol sulfate 90 mcg/actuation 2 puff inhalation QIDRT PRN 05/24/21 04/05/24 Rx aerosol inhaler (Proventil HFA) Shortness Of Breath #6.7 grams allopurinol 100 mg tablet 200 mg PO DAILY 01/20/22 04/05/24 History atorvastatin 10 mg tablet 10 mg PO HS 01/20/22 04/05/24 History ergocalciferol (vitamin D2) 1,250 1,250 mcg PO WEEKLY 01/20/22 04/05/24 History mcg (50,000 unit) capsule (Vitamin D2) fluticasone fur. 100 mcg-umeclid 1 inh inhalation DAILY 01/20/22 04/05/24 History 62.5 mcg-vilant 25 mcg inhalat.powder (Trelegy Ellipta) apixaban 5 mg tablet (Eliquis) 5 mg PO Q12HR #60 tabs 01/25/22 04/05/24 Rx pantoprazole 40 mg tablet,delayed 40 mg PO QAM #30 tabs 01/25/22 04/05/24 Rx release gabapentin 600 mg tablet 1,200 mg PO HS 01/08/23 04/05/24 History gabapentin 600 mg tablet 600 mg PO DAILY 01/08/23 04/05/24 History latanoprost 0.005 % eye drops 1 drp EACH EYE HS 01/08/23 04/05/24 History bumetanide 1 mg tablet 2 mg PO DAILY@0800 #30 tabs 01/25/23 04/05/24 Rx empagliflozin 10 mg tablet 10 mg PO DAILY #30 tabs 01/25/23 04/05/24 Rx (Jardiance) ferrous sulfate 325 mg PO DAILY 30 days ##0 01/25/23 04/05/24 Rx spironolactone 25 mg tablet 50 mg PO QAM #30 tabs 01/25/23 04/05/24 Rx cetirizine 10 mg tablet 10 mg PO HS 01/29/23 04/05/24 History potassium chloride 20 mEq 20 meq PO DAILY 01/29/23 04/05/24 History tablet,extended release(part/cryst) pramipexole 0.5 mg tablet 0.5 mg PO HS 01/29/23 04/05/24 History prednisone 20 mg tablet 40 mg PO DAILY@0800 3 days #6 tabs 12/01/23 04/05/24 Rx Allergies Allergy/AdvReac Type Severity Reaction Status Date / Time rivaroxaban AdvReac Intermediate Other Verified 03/31/23 10:19 Results - Labs CBC & Chem 7: 04/05/24 12:17 04/05/24 12:17 Labs: Short CBC 04/04/24 04/05/24 Range/Units 21:51 12:17 WBC 13.4 H 16.2 H (4.5-10.0) K/mm3 Hgb 16.2 H 15.3 H (12.0-15.0) g/dL Hct 49.9 H 48.9 H (37.0-47.0) % Plt Count 356 D 327 (150-375) k/mm3 BMP 04/04/24 04/05/24 21:51 12:17 Sodium 130 L 131 L Potassium 4.7 4.8 Chloride 89 L 95 L Carbon Dioxide 30 29 BUN 98 H D 84 H D Creatinine 1.90 H 1.50 H Glucose 129 H 161 H Calcium 9.1 8.8 Liver Function 04/04/24 04/05/24 Range/Units 21:51 12:17 Total Bilirubin 0.7 0.7 (0.2-1.3) mg/dL AST 35 31 (14-36) U/L ALT 19 17 (6-35) U/L Alkaline Phosphatase 185 H 147 H (38-126) U/L Albumin 3.8 3.5 (3.5-5.1) g/dL Urine 04/05/24 Range/Units 00:46 Urine Color Yellow (Yellow) Urine Appearance Clear (Clear) Urine pH 5.0 (5.0-9.0) Ur Specific [place] 1.013 (1.001-1.035) Urine Protein Negative (Negative) mg/dL Urine Glucose (UA) Negative (Negative) mg/dL Assessment and Plan - Additional Plan Likely metastatic breast cancer. Patient was all initially diagnosed with breast cancer involving the right breast status post lumpectomy almost 4 years ago. She followed up with the oncologist at [facility]. According the patient she received radiation therapy and chemotherapy subsequently and then currently on endocrine therapy. 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 I have reviewed the CT scan of the chest done on March 31 that showed widespread bone metastasis along with 7.8 cm mass at the left 5th rib consistent with metastatic disease. There was also right axillary lymphadenopathy. CT head was performed due to mental status changes stable nonspecific white matter disease without any evidence of metastatic disease. These findings are consistent with metastatic disease likely metastatic breast cancer. I will check CA 15-3. I will order bone scan as well as CT abdomen and pelvis. Based on the further imaging studies will decide if biopsy is needed to prove relapsed metastatic disease. I have provided her my office information but also recommended that she should follow up with her previous oncologist. Patient is in agreement. I have answered all the questions to patient satisfaction.
[2024-04-05] MEDS: GABAPENTIN 400 MG CAPSULE 1200 MG PO (20:12)
[2024-04-05] MEDS: LORATADINE 10 MG TABLET PO (20:12)
[2024-04-05] MEDS: PRAMIPEXOLE 0.5 MG TABLET PO (20:13)
[2024-04-05] MEDS: ATORVASTATIN 10 MG TABLET PO (20:13)
[2024-04-05] MEDS: dilTIAZem HCL CD 180 MG CAP.24HR PO (20:13)
[2024-04-05] MEDS: LATANOPROST 0.005% OP SOLN 2.5 ML BTL 1 DROP EACH EYE (20:26)
[2024-04-06] MEDS: HYDROcodone/acetaminophen (*CRX) 5-325 MG TABLET 1 TAB PO (01:03)
[2024-04-06 05:53] VITALS: BP 147/49; PULSE 62; RESP 18; TEMP 35.8; O2SAT 100
[2024-04-06 07:15] LABS: Basophils Percent Auto 0.2 % (0.2-1.2); Eosinophils Percent Auto 0.3 % (0-4.4); Hematocrit 49.5 % (37.0-47.0); Hemoglobin 15.2 g/dL (12.0-15.0); Immature Granulocyte Absolute 0.12 K/mm3 (0.00-0.031); Lymphocytes Absolute Auto 1.03 K/mm3 (0.9-3.2); Lymphocytes Percent Auto 8.5 % (18.3-44.2); Mean Corpuscular HGB Conc 30.7 g/dl (32-36); Mean Corpuscular Hemoglobin 29.2 pg (26-34); Mean Platelet Volume 10.3 fl (7.4-10.4); Monocytes Absolute Auto 0.9 K/mm3 (0.1-0.6); Monocytes Percent Auto 7.1 % (2.6-8.5); Neutrophils Percent Auto 82.9 % (45.5-73.1); Nucleated Red Blood Cells Perc 0.2 % (0.0-0.2); Platelet Count Result 287 k/mm3 (150-375); Red Blood Count 5.21 M/mm3 (4.2-5.4); Red Cell Distribution Width 17.7 % (11.5-14.5); White Blood Count 12.1 K/mm3 (4.5-10.0)
[2024-04-06] MEDS: FLUTICASONE/UMECLIDIN/VILANTER 100-62.5-25 MCG ELLIPTA 1 PUFF INHALATION (07:50)
[2024-04-06 07:54] VITALS: PULSE 60; RESP 18; O2SAT 98
[2024-04-06 09:45] VITALS: O2SAT 98
[2024-04-06] MEDS: GABAPENTIN 300 MG CAPSULE 600 MG PO (09:45)
[2024-04-06] MEDS: PANTOPRAZOLE 40 MG TABLET PO (09:45)
[2024-04-06] MEDS: allopurinoL 100 MG TABLET 200 MG PO (09:45)
[2024-04-06] MEDS: AZITHROMYCIN 250 MG TABLET 500 MG PO (09:45)
[2024-04-06] MEDS: SPIRONOLACTONE 25 MG TABLET 50 MG PO (09:45)
[2024-04-06] MEDS: FERROUS SULFATE 325 MG TABLET DR PO (09:45)
[2024-04-06] MEDS: APIXABAN 5 MG TABLET PO ×2 (09:45→20:47)
[2024-04-06] MEDS: calcitrioL 0.25 MCG CAPSULE PO (09:45)
[2024-04-06] MEDS: EMPAGLIFLOZIN 10 MG TABLET PO (09:45)
[2024-04-06] MEDS: LETROZOLE (*CHEMO) 2.5 MG TABLET PO (09:45)
[2024-04-06] MEDS: CEFEPIME 1 GM/NS 50 ML 1 GM/50 ML BAG IVPB ×2 (09:46→20:43)
--- NOTE | 2024-04-06 10:02 | P.PNIM_ITS ---
Progress Note: A&P Assessment and Plan (1) Pneumonia: Code(s): J18.9 - Pneumonia, unspecified organism Status: Acute Assessment and Plan: * Chest X-ray showed: IMPRESSION: 1. Airspace opacities in left perihilar region, consistent with pneumonia. 2. 7 cm aggressive mass of left fifth rib, consistent with metastatic disease. 3. Cardiomegaly. * 02@2LNC at baseline. * Receiving Cefepime 1 gm IVPB q 12 and Azithromycin 500 mg PO daily. * Continue inhalers. (2) Metastatic malignant neoplasm to breast: Code(s): C79.81 - Secondary malignant neoplasm of breast Status: Acute Assessment and Plan: * Chest X-ray showed 7 cm aggressive mass of left fifth rib, consistent with metastatic disease. * Oncology consult. * Bone scan and CA 15-3 lab ordered. (3) Paroxysmal atrial fibrillation: Code(s): I48.0 - Paroxysmal atrial fibrillation Status: Acute Assessment and Plan: * EKG showed AFib with left bundle branch block rate 65 with QTc 470. * Eliquis 5 mg PO BID * Diltiazem HCL CD 180 mg at bedtime. (4) COPD (chronic obstructive pulmonary disease): Code(s): J44.9 - Chronic obstructive pulmonary disease, unspecified Status: Acute Assessment and Plan: * Trelegy 100-62.5-25 mcg 1 puff daily. (5) Acute kidney injury superimposed on CKD: Code(s): N17.9 - Acute kidney failure, unspecified; N18.9 - Chronic kidney disease, unspecified Status: Acute Assessment and Plan: * Creatinine 1.90>1.50>1.20 * Bumex restarted * Monitor labs. (6) Acute respiratory failure with hypoxia: Code(s): J96.01 - Acute respiratory failure with hypoxia Status: Acute Assessment and Plan: * 02@2LNC (7) Sleep apnea: Code(s): G47.30 - Sleep apnea, unspecified Status: Acute Assessment and Plan: * BIPAP at night (8) Morbid obesity: Code(s): E66.01 - Morbid (severe) obesity due to excess calories Status: Acute Assessment and Plan: * Heart healthy diet Subjective Date/time seen: 04/06/24 10:02 Interval history: Patient denies chest pain, palpitations, headache, dizziness, nausea, or vomiting. Patient asking about test ordered by oncology. Review of Systems Review of Systems: All systems reviewed & are unremarkable except as noted in HPI and below Exam Const: General: comfortable and no acute distress Eyes: Sclera: sclerae normal Resp: Effort & Inspection: normal respiratory effort Auscultation: diminished lung sounds Cardio: Rhythm: abnormal rhythm irregularly irregular GI: GI Palp: Yes Soft to palpation Auscultation: normal bowel sounds Other: Obese Skin: General skin exam: no rashes or lesions noted Neuro: Speech: normal speech Extrem: General: no pedal edema Psych: Mental Status: mental status grossly normal Affect: normal affect Objective Data Vital Signs Vital Signs: Vital Signs - 24 hr 04/05/24 13:57 04/05/24 20:11 04/05/24 20:00 Temperature 98.2 F 96.4 F L Pulse Rate 67 62 Respiratory Rate 18 18 Blood Pressure 112/67 127/54 L Pulse Oximetry 98 97 97 Oxygen Delivery Nasal Cannula Oxygen Flow Rate 3 04/06/24 05:53 04/06/24 07:54 04/06/24 07:54 Temperature 96.4 F L Pulse Rate 62 60 Respiratory Rate 18 18 Blood Pressure 147/49 H Pulse Oximetry 100 98 Oxygen Delivery Nasal Cannula Oxygen Flow Rate 2.5 Intake/Output Intake/Output: Intake & Output 04/03/24 04/04/24 04/05/24 04/06/24 23:59 23:59 23:59 23:59 Intake Total 2550 440 Output Total 851 300 Balance 1699 140 Meds/Results Medications: Active Medications Generic Name Dose Route Start Last Admin Trade Name Freq PRN Reason Stop Dose Admin Hydrocodone Bitart/Acetaminophen 1 tab 04/05/24 16:07 04/06/24 01:03 Hydrocodone/Acetaminophen (*Crx) 5-325 Mg Tablet PO 1 tab Q6H PRN Administration Pain Rated 4-6 Albuterol 2 puff 04/05/24 08:23 Albuterol Sulfate (*Sp) Aerosol 1 Puff INHALATION QIDRT PRN Shortness Of Breath Allopurinol 200 mg 04/05/24 09:00 04/06/24 09:45 Allopurinol 100 Mg Tablet PO 200 mg DAILY GREG Administration Apixaban 5 mg 04/05/24 09:00 04/06/24 09:45 Apixaban 5 Mg Tablet PO 5 mg Q12HR GREG Administration Atorvastatin Calcium 10 mg 04/05/24 21:00 04/05/24 20:13 Atorvastatin 10 Mg Tablet PO 10 mg HS GREG Administration Azithromycin 500 mg 04/05/24 09:00 04/06/24 09:45 Azithromycin 250 Mg Tablet PO 04/09/24 09:01 500 mg DAILY GREG Administration Calcitriol 0.25 mcg 04/05/24 09:00 04/06/24 09:45 Calcitriol 0.25 Mcg Capsule PO 0.25 mcg DAILY GREG Administration Diltiazem HCl 180 mg 04/05/24 21:00 04/05/24 20:13 Diltiazem Hcl Cd 180 Mg Cap.24hr PO 180 mg HS GREG Administration Empagliflozin 10 mg 04/05/24 09:00 04/06/24 09:45 Empagliflozin 10 Mg Tablet PO 10 mg DAILY GREG Administration Ergocalciferol 50,000 units 04/11/24 09:00 Ergocalciferol 50,000 Units Capsule PO WEEKLY GREG Ferrous Sulfate 325 mg 04/05/24 09:00 04/06/24 09:45 Ferrous Sulfate [address] PO 325 mg DAILY GREG Administration Fluticasone Propionate 2 spray 04/05/24 08:23 Fluticasone Propionate 0.05% Na Spr 16 Gm Btl (*Bkc) NASAL PRN PRN Congestion Fluticasone/Umeclidinium/Vilanterol 1 puff 04/05/24 08:00 04/06/24 07:50 Fluticasone/Umeclidin/Vilanter 100-62.5-25 Mcg Ellipta INHALATION 1 puff DAILYRT GREG Administration Gabapentin 1,200 mg 04/05/24 21:00 04/05/24 20:12 Gabapentin 400 Mg Capsule PO 1,200 mg HS GREG Administration Gabapentin 600 mg 04/05/24 09:00 04/06/24 09:45 Gabapentin 300 Mg Capsule PO 600 mg DAILY GREG Administration Cefepime HCl 1 gm in 50 mls @ 100 mls/hr 04/05/24 09:00 04/06/24 09:46 Maxipime 1 Gm/Ns 50 Ml IVPB 100 mls/hr Q12H GREG Administration Latanoprost 1 drop 04/05/24 21:00 04/05/24 20:26 Latanoprost 0.005% Op Soln 2.5 Ml Btl EACH EYE 1 drop HS GREG Administration Letrozole 2.5 mg 04/05/24 09:00 04/06/24 09:45 Letrozole (*Chemo) 2.5 Mg Tablet PO 2.5 mg DAILY GREG Administration Loratadine 10 mg 04/05/24 21:00 04/05/24 20:12 Loratadine 10 Mg Tablet PO 10 mg HS GREG Administration Pantoprazole Sodium 40 mg 04/05/24 09:00 04/06/24 09:45 Pantoprazole 40 Mg Tablet PO 40 mg QAM GREG Administration Pramipexole Dihydrochloride 0.5 mg 04/05/24 21:00 04/05/24 20:13 Pramipexole 0.5 Mg Tablet PO 0.5 mg HS GREG Administration Prednisone 40 mg 04/05/24 08:00 04/05/24 09:02 Prednisone 20 Mg Tablet PO 40 mg DAILY@0800 GREG Administration Spironolactone 50 mg 04/05/24 09:00 04/06/24 09:45 Spironolactone 25 Mg Tablet PO 50 mg QAM GREG Administration Radiology Results: ITS Impressions Chest X-Ray 04/05/24 05:50 IMPRESSION: 1. Airspace opacities in left perihilar region, consistent with pneumonia. 2. 7 cm aggressive mass of left fifth rib, consistent with metastatic disease. 3. Cardiomegaly. Head CT 04/05/24 06:21 IMPRESSION: 1. Stable moderate nonspecific cerebral white matter disease, which likely represents chronic small vessel ischemic disease. Abdomen/Pelvis CT 04/05/24 22:15 IMPRESSION: Stable 7.8 cm left chest wall mass. Trace bilateral pleural effusions. Mild esophagitis/gastritis. Cholelithiasis with gallbladder wall hyperemia and mild pericholecystic fluid, correlate with biliary labs and symptoms of upper abdominal pain. 1.3 cm right adrenal nodule suspicious for metastatic disease. Fecal impaction without findings to suggest stercoral colitis. Right lateral abdominal wall edema, correlate for findings of contusion or cellulitis. Diffuse osseous metastatic disease. Labs Labs: Laboratory Results - last 24 hr 04/05/24 04/06/24 12:17 07:04 WBC 16.2 H 12.1 H RBC 5.35 5.21 Hgb 15.3 H 15.2 H Hct 48.9 H 49.5 H MCV 91.4 95.0 MCH 28.6 29.2 MCHC 31.3 L 30.7 L RDW 17.6 H 17.7 H Plt Count 327 287 MPV 10.3 10.3 Immature Gran % (Auto) 0.9 H 1.0 H Neut % (Auto) 91.2 H 82.9 H Lymph % (Auto) 4.1 L 8.5 L [place] % (Auto) 3.2 7.1 Eos % (Auto) 0.4 0.3 Baso % (Auto) 0.2 0.2 Lymph # (Auto) 0.66 L 1.03 [place] # (Auto) 0.5 0.9 H Eos # (Auto) 0.1 0.0 Baso # (Auto) 0.0 0.0 Abs Immat Gran (auto) 0.14 H 0.12 H Absolute Neuts (auto) 14.8 H 10.0 H Absolute Nucleated RBC 0.020 H 0.020 H Nucleated RBC % 0.1 0.2 Atypical Lymphocytes Present Platelet Estimate Adequate Schistocytes None seen Sodium 131 L Potassium 4.8 Chloride 95 L Carbon Dioxide 29 Anion Gap 7 BUN 84 H D Creatinine 1.50 H Estim Creat Clear Calc 32 Estimated GFR 34 L Glucose 161 H Calcium 8.8 Total Bilirubin 0.7 AST 31 ALT 17 Alkaline Phosphatase 147 H Total Protein 7.0 Albumin 3.5 Quality VTE Prophylaxis VTE prophylaxis: pharmacologic ordered
[2024-04-06 10:17] LABS: Alanine Aminotransferase 14 U/L (6-35); Alkaline Phosphatase 141 U/L (38-126); Anion Gap 10 mmol/L (4-12); Aspartate Amino Transferase 28 U/L (14-36); Bilirubin,Total 0.6 mg/dL (0.2-1.3); Blood Urea Nitrogen 70 mg/dL (7-17); Calcium 9.1 mg/dL (8.4-10.2); Carbon Dioxide 23 mmol/L (22-30); Chloride 99 mmol/L (98-107); Estimated CRCL calculation 40 ml/min; Estimated Glomerular Filt Rate 44; Glucose 86 mg/dL (65-110); Potassium 5.1 mmol/L (3.4-5.0); Sodium 132 mmol/L (137-145)
[2024-04-06] MEDS: BUMETANIDE 1 MG TABLET 2 MG PO (12:27)
[2024-04-06 14:00] VITALS: BP 111/73; PULSE 96; RESP 16; TEMP 36.4; O2SAT 97
[2024-04-06 20:00] VITALS: O2SAT 97
[2024-04-06] MEDS: GABAPENTIN 400 MG CAPSULE 1200 MG PO (20:46)
[2024-04-06] MEDS: LORATADINE 10 MG TABLET PO (20:47)
[2024-04-06] MEDS: dilTIAZem HCL CD 180 MG CAP.24HR PO (20:47)
[2024-04-06] MEDS: PRAMIPEXOLE 0.5 MG TABLET PO (20:47)
[2024-04-06] MEDS: ATORVASTATIN 10 MG TABLET PO (20:47)
[2024-04-06 21:00] VITALS: BP 148/71; PULSE 88; RESP 18; TEMP 36.6; O2SAT 97
[2024-04-07] VITALS (7 sets, daily range): BP systolic 139–143; BP diastolic 85–93; PULSE 60–88; RESP 18–20; TEMP 36.2–36.8; O2SAT 93–100
[2024-04-07 07:02] LABS: Basophils Absolute Auto 0.1 K/mm3 (0.0-0.1); Basophils Percent Auto 0.4 % (0.2-1.2); Eosinophils Absolute Auto 0.3 K/mm3 (0-0.3); Eosinophils Percent Auto 2.2 % (0-4.4); Hematocrit 47.3 % (37.0-47.0); Hemoglobin 14.6 g/dL (12.0-15.0); Immature Granulocyte Absolute 0.11 K/mm3 (0.00-0.031); Immature Granulocyte Percent A 0.8 % (0-0.5); Lymphocytes Absolute Auto 1.56 K/mm3 (0.9-3.2); Lymphocytes Percent Auto 11.4 % (18.3-44.2); Mean Corpuscular HGB Conc 30.9 g/dl (32-36); Mean Corpuscular Hemoglobin 28.3 pg (26-34); Mean Corpuscular Volume 91.7 fl (80-100); Mean Platelet Volume 10.4 fl (7.4-10.4); Monocytes Percent Auto 7.2 % (2.6-8.5); Neutrophils Absolute Auto 10.7 K/mm3 (1.3-6.7); Nucleated Red Blood Cells Perc 0.1 % (0.0-0.2); Platelet Count Result 328 k/mm3 (150-375); Red Blood Count 5.16 M/mm3 (4.2-5.4); Red Cell Distribution Width 17.7 % (11.5-14.5); White Blood Count 13.7 K/mm3 (4.5-10.0)
[2024-04-07 07:11] LABS: Alanine Aminotransferase 16 U/L (6-35); Albumin Level 3.4 g/dL (3.5-5.1); Alkaline Phosphatase 151 U/L (38-126); Anion Gap 2 mmol/L (4-12); Aspartate Amino Transferase 34 U/L (14-36); Bilirubin,Total 0.6 mg/dL (0.2-1.3); Blood Urea Nitrogen 74 mg/dL (7-17); Carbon Dioxide 32 mmol/L (22-30); Chloride 98 mmol/L (98-107); Estimated CRCL calculation 30 ml/min; Estimated Glomerular Filt Rate 31; Glucose 85 mg/dL (65-110); Potassium 4.8 mmol/L (3.4-5.0); Sodium 132 mmol/L (137-145)
[2024-04-07] MEDS: FLUTICASONE/UMECLIDIN/VILANTER 100-62.5-25 MCG ELLIPTA 1 PUFF INHALATION (08:28)
[2024-04-07] MEDS: AZITHROMYCIN 250 MG TABLET 500 MG PO (08:33)
[2024-04-07] MEDS: APIXABAN 5 MG TABLET PO ×2 (08:33→20:37)
[2024-04-07] MEDS: EMPAGLIFLOZIN 10 MG TABLET PO (08:33)
[2024-04-07] MEDS: PANTOPRAZOLE 40 MG TABLET PO (08:33)
[2024-04-07] MEDS: GABAPENTIN 300 MG CAPSULE 600 MG PO (08:33)
[2024-04-07] MEDS: BUMETANIDE 1 MG TABLET 2 MG PO (08:33)
[2024-04-07] MEDS: LETROZOLE (*CHEMO) 2.5 MG TABLET PO (08:33)
[2024-04-07] MEDS: allopurinoL 100 MG TABLET 200 MG PO (08:33)
[2024-04-07] MEDS: FERROUS SULFATE 325 MG TABLET DR PO (08:33)
[2024-04-07] MEDS: SPIRONOLACTONE 25 MG TABLET 50 MG PO (08:33)
[2024-04-07] MEDS: calcitrioL 0.25 MCG CAPSULE PO (08:34)
[2024-04-07] MEDS: CEFEPIME 1 GM/NS 50 ML 1 GM/50 ML BAG IVPB ×2 (08:34→20:39)
--- NOTE | 2024-04-07 10:02 | P.PNIM_ITS ---
Progress Note: A&P Assessment and Plan (1) Acute respiratory failure with hypoxia: Code(s): J96.01 - Acute respiratory failure with hypoxia Status: Acute Assessment and Plan: Chronic, baseline oxygen supplementation of 2LNC (2) Pneumonia: Code(s): J18.9 - Pneumonia, unspecified organism Status: Acute Assessment and Plan: CXR: 1. Airspace opacities in left perihilar region, consistent with pneumonia. 2. 7 cm aggressive mass of left fifth rib, consistent with metastatic disease. 3. Cardiomegaly. - started on CAP tx: Azithromycin and cefepime started on 04/05 - Viral PCR: Flu/COVID/RSV ordered - Chronic supplemental O2 requirement of 2 L NC baseline - supportive treatment - Monitor vital signs, I&Os, neuro status and patient is a fall risk - Follow WBC, serum electrolytes, temperature curves and cultures (3) Metastatic malignant neoplasm to breast: Code(s): C79.81 - Secondary malignant neoplasm of breast Status: Acute Assessment and Plan: Likely metastatic breast cancer. Patient was all initially diagnosed with breast cancer involving the right breast status post lumpectomy almost 4 years ago. She followed up with the oncologist at [facility]. Chest X-ray: 7 cm aggressive mass of left fifth rib, consistent with metastatic disease. CT abdomen/plevis: Stable 7.8 cm left chest wall mass. Trace bilateral pleural effusions. 1.3 cm right adrenal nodule suspicious for metastatic disease. Right lateral abdominal wall edema, correlate for findings of contusion or cellulitis. Osseous metastatic disease. Oncology consult. Bone scan and CA 15-3 lab ordered. (4) Acute kidney injury superimposed on CKD: Code(s): N17.9 - Acute kidney failure, unspecified; N18.9 - Chronic kidney disease, unspecified Status: Acute Assessment and Plan: Creatinine 1.90>1.50>1.20>1.6 likely related to the resuming of bumex * Bumex restarted * Monitor labs. (5) Cholelithiases: Code(s): K80.20 - Calculus of gallbladder without cholecystitis without obstruction Status: Acute Assessment and Plan: CT abdomen/pelvis: Cholelithiasis with gallbladder wall hyperemia and mild pericholecystic fluid, correlate with biliary labs and symptoms of upper abdominal pain. Abdomen exam benign. LFTs WNL. Monitor. (6) Fecal impaction: Code(s): K56.41 - Fecal impaction Status: Acute Assessment and Plan: CT abdomen/pelvis: Fecal impaction without findings to suggest stercoral colitis. - Last BM 04/06, denies abdominal pain, nausea/vomiting and is tolerating a diet well (7) Paroxysmal atrial fibrillation: Code(s): I48.0 - Paroxysmal atrial fibrillation Status: Acute Assessment and Plan: - EKG: AFib with left bundle branch block rate 65 with QTc 470. - Continue home medications Eliquis 5 mg PO BID Diltiazem HCL CD 180 mg at bedtime. (8) COPD (chronic obstructive pulmonary disease): Code(s): J44.9 - Chronic obstructive pulmonary disease, unspecified Status: Acute Assessment and Plan: Chronic, does not appear to be in acute exacerbation. - Trelegy 100-62.5-25 mcg 1 puff daily. - Monitor (9) Sleep apnea: Code(s): G47.30 - Sleep apnea, unspecified Status: Acute Assessment and Plan: * BIPAP at night (10) Morbid obesity: Code(s): E66.01 - Morbid (severe) obesity due to excess calories Status: Acute Assessment and Plan: * Heart healthy diet Time Spent With Patient Time with patient: 25 - 35 minutes Subjective Date/time seen: 04/07/24 10:02 Interval history: 78 year old female with past medical history of chronic respiratory failure 2/2 COPD on 2L NC baseline, CHF, afib on anticoauglation, CKD, HTN, ROSALIE, and history of breast cancer presents to the hospital for altered mental status. Patient is pleasant lying comfortably in bed. She remains AOx3. She continues to say that she just does not feel well but is not able to further elaborate. She denies chest pain, shortness of breath, palpitations, nausea/vomiting, abdominal pain. Review of Systems Review of Systems: All systems reviewed & are unremarkable except as noted in HPI and below Exam Narrative: AF HR 66 RR 18 SpO2 93 3L NC (baseline) BP 139/85 General: female in no acute respiratory distress who is nontoxic appearing, lying semi recumbent in bed. HEENT: Normocephalic. Atraumatic. Extraocular movement intact. Sclera clear and anicteric. No facial asymmetry. Chest: Lungs are clear to auscultation bilaterally. No wheezes or crackles. Breast: No noted masses or nipple retraction. CV: Heart was regular rate and rhythm. S1-S2. No murmurs, gallops, or rubs. Abd: Abdomen was soft. Nontender. Nondistended. Positive bowel sounds. No organomegaly or masses. Ext: No clubbing, cyanosis, or edema. 2+ DP pulses bilaterally. Neuro: Patient is alert and oriented x3. Cranial nerves 2-12 are intact. Speech is clear. Objective Data Vital Signs Vital Signs: Vital Signs - 24 hr 04/06/24 14:00 04/06/24 21:00 04/06/24 20:00 Temperature 97.6 F 97.9 F Pulse Rate 96 88 Respiratory Rate 16 18 Blood Pressure 111/73 148/71 H Pulse Oximetry 97 97 97 Oxygen Delivery Nasal Cannula Oxygen Flow Rate 3 04/07/24 05:05 04/07/24 08:32 04/07/24 08:32 Temperature 98.3 F Pulse Rate 60 66 Respiratory Rate 18 18 Blood Pressure 139/85 Pulse Oximetry 94 93 Oxygen Delivery Nasal Cannula Oxygen Flow Rate 2.5 Intake/Output Intake/Output: Intake & Output 04/04/24 04/05/24 04/06/24 04/07/24 23:59 23:59 23:59 23:59 Intake Total 2550 1080 200 Output Total 851 700 700 Balance 1699 380 -500 Meds/Results Medications: Active Medications Generic Name Dose Route Start Last Admin Trade Name Freq PRN Reason Stop Dose Admin Hydrocodone Bitart/Acetaminophen 1 tab 04/05/24 16:07 04/06/24 01:03 Hydrocodone/Acetaminophen (*Crx) 5-325 Mg Tablet PO 1 tab Q6H PRN Administration Pain Rated 4-6 Albuterol 2 puff 04/05/24 08:23 Albuterol Sulfate (*Sp) Aerosol 1 Puff INHALATION QIDRT PRN Shortness Of Breath Allopurinol 200 mg 04/05/24 09:00 04/07/24 08:33 Allopurinol 100 Mg Tablet PO 200 mg DAILY GREG Administration Apixaban 5 mg 04/05/24 09:00 04/07/24 08:33 Apixaban 5 Mg Tablet PO 5 mg Q12HR GREG Administration Atorvastatin Calcium 10 mg 04/05/24 21:00 04/06/24 20:47 Atorvastatin 10 Mg Tablet PO 10 mg HS GREG Administration Azithromycin 500 mg 04/05/24 09:00 04/07/24 08:33 Azithromycin 250 Mg Tablet PO 04/09/24 09:01 500 mg DAILY GREG Administration Bumetanide 2 mg 04/06/24 10:30 04/07/24 08:33 Bumetanide 1 Mg Tablet PO 2 mg DAILY@0800 GREG Administration Calcitriol 0.25 mcg 04/05/24 09:00 04/07/24 08:34 Calcitriol 0.25 Mcg Capsule PO 0.25 mcg DAILY GREG Administration Diltiazem HCl 180 mg 04/05/24 21:00 04/06/24 20:47 Diltiazem Hcl Cd 180 Mg Cap.24hr PO 180 mg HS GREG Administration Empagliflozin 10 mg 04/05/24 09:00 04/07/24 08:33 Empagliflozin 10 Mg Tablet PO 10 mg DAILY GREG Administration Ergocalciferol 50,000 units 04/11/24 09:00 Ergocalciferol 50,000 Units Capsule PO WEEKLY GREG Ferrous Sulfate 325 mg 04/05/24 09:00 04/07/24 08:33 Ferrous Sulfate [address] PO 325 mg DAILY GREG Administration Fluticasone Propionate 2 spray 04/05/24 08:23 Fluticasone Propionate 0.05% Na Spr 16 Gm Btl (*Bkc) NASAL PRN PRN Congestion Fluticasone/Umeclidinium/Vilanterol 1 puff 04/05/24 08:00 04/07/24 08:28 Fluticasone/Umeclidin/Vilanter 100-62.5-25 Mcg Ellipta INHALATION 1 puff DAILYRT GREG Administration Gabapentin 1,200 mg 04/05/24 21:00 04/06/24 20:46 Gabapentin 400 Mg Capsule PO 1,200 mg HS GREG Administration Gabapentin 600 mg 04/05/24 09:00 04/07/24 08:33 Gabapentin 300 Mg Capsule PO 600 mg DAILY GREG Administration Cefepime HCl 1 gm in 50 mls @ 100 mls/hr 04/05/24 09:00 04/07/24 08:34 Maxipime 1 Gm/Ns 50 Ml IVPB 100 mls/hr Q12H GREG Administration Latanoprost 1 drop 04/05/24 21:00 04/06/24 20:54 Latanoprost 0.005% Op Soln 2.5 Ml Btl EACH EYE Not Given HS GREG Letrozole 2.5 mg 04/05/24 09:00 04/07/24 08:33 Letrozole (*Chemo) 2.5 Mg Tablet PO 2.5 mg DAILY GREG Administration Loratadine 10 mg 04/05/24 21:00 04/06/24 20:47 Loratadine 10 Mg Tablet PO 10 mg HS GREG Administration Pantoprazole Sodium 40 mg 04/05/24 09:00 04/07/24 08:33 Pantoprazole 40 Mg Tablet PO 40 mg QAM GREG Administration Pramipexole Dihydrochloride 0.5 mg 04/05/24 21:00 04/06/24 20:47 Pramipexole 0.5 Mg Tablet PO 0.5 mg HS GREG Administration Prednisone 40 mg 04/05/24 08:00 04/05/24 09:02 Prednisone 20 Mg Tablet PO 40 mg DAILY@0800 GREG Administration Spironolactone 50 mg 04/05/24 09:00 04/07/24 08:33 Spironolactone 25 Mg Tablet PO 50 mg QAM GREG Administration Radiology Results: ITS Impressions Chest X-Ray 04/05/24 05:50 IMPRESSION: 1. Airspace opacities in left perihilar region, consistent with pneumonia. 2. 7 cm aggressive mass of left fifth rib, consistent with metastatic disease. 3. Cardiomegaly. Head CT 04/05/24 06:21 IMPRESSION: 1. Stable moderate nonspecific cerebral white matter disease, which likely represents chronic small vessel ischemic disease. Abdomen/Pelvis CT 04/05/24 22:15 IMPRESSION: Stable 7.8 cm left chest wall mass. Trace bilateral pleural effusions. Mild esophagitis/gastritis. Cholelithiasis with gallbladder wall hyperemia and mild pericholecystic fluid, correlate with biliary labs and symptoms of upper abdominal pain. 1.3 cm right adrenal nodule suspicious for metastatic disease. Fecal impaction without findings to suggest stercoral colitis. Right lateral abdominal wall edema, correlate for findings of contusion or cellulitis. Diffuse osseous metastatic disease. Bone Scan Nuclear Medicine 04/06/24 14:23 IMPRESSION: 1. Widespread osseous metastatic disease. Consider ultrasound-guided core needle biopsy of the large left rib mass. Labs Labs: Laboratory Results - last 24 hr 04/06/24 04/07/24 07:04 06:11 WBC 13.7 H RBC 5.16 Hgb 14.6 Hct 47.3 H MCV 91.7 MCH 28.3 MCHC 30.9 L RDW 17.7 H Plt Count 328 MPV 10.4 Immature Gran % (Auto) 0.8 H Neut % (Auto) 78.0 H Lymph % (Auto) 11.4 L [place] % (Auto) 7.2 Eos % (Auto) 2.2 Baso % (Auto) 0.4 Lymph # (Auto) 1.56 [place] # (Auto) 1.0 H Eos # (Auto) 0.3 Baso # (Auto) 0.1 Abs Immat Gran (auto) 0.11 H Absolute Neuts (auto) 10.7 H Absolute Nucleated RBC 0.020 H Nucleated RBC % 0.1 Sodium 132 L 132 L Potassium 5.1 H 4.8 Chloride 99 98 Carbon Dioxide 23 32 H Anion Gap 10 2 L BUN 70 H D 74 H Creatinine 1.20 H 1.60 H Estim Creat Clear Calc 40 30 Estimated GFR 44 L 31 L Glucose 86 85 Calcium 9.1 9.0 Total Bilirubin 0.6 0.6 AST 28 34 ALT 14 16 Alkaline Phosphatase 141 H 151 H Total Protein 6.0 L 6.0 L Albumin 3.0 L 3.4 L Quality VTE Prophylaxis VTE prophylaxis: pharmacologic ordered
[2024-04-07 11:27] LABS: CA 15-3 1188 U/mL (<32)
[2024-04-07] MEDS: ATORVASTATIN 10 MG TABLET PO (20:37)
[2024-04-07] MEDS: GABAPENTIN 400 MG CAPSULE 1200 MG PO (20:37)
[2024-04-07] MEDS: LORATADINE 10 MG TABLET PO (20:37)
[2024-04-07] MEDS: dilTIAZem HCL CD 180 MG CAP.24HR PO (20:37)
[2024-04-07] MEDS: PRAMIPEXOLE 0.5 MG TABLET PO (20:37)
[2024-04-07] MEDS: LATANOPROST 0.005% OP SOLN 2.5 ML BTL 1 DROP EACH EYE (20:38)
[2024-04-08 05:06] VITALS: BP 116/60; PULSE 62; RESP 18; TEMP 36.7; O2SAT 100
[2024-04-08 06:26] LABS: Basophils Absolute Auto 0.1 K/mm3 (0.0-0.1); Basophils Percent Auto 0.5 % (0.2-1.2); Eosinophils Absolute Auto 0.2 K/mm3 (0-0.3); Eosinophils Percent Auto 1.8 % (0-4.4); Hematocrit 50.1 % (37.0-47.0); Hemoglobin 15.6 g/dL (12.0-15.0); Immature Granulocyte Percent A 0.8 % (0-0.5); Lymphocytes Absolute Auto 1.21 K/mm3 (0.9-3.2); Lymphocytes Percent Auto 9.3 % (18.3-44.2); Mean Corpuscular HGB Conc 31.1 g/dl (32-36); Mean Corpuscular Hemoglobin 28.5 pg (26-34); Mean Corpuscular Volume 91.6 fl (80-100); Monocytes Absolute Auto 0.8 K/mm3 (0.1-0.6); Monocytes Percent Auto 6.4 % (2.6-8.5); Neutrophils Absolute Auto 10.6 K/mm3 (1.3-6.7); Neutrophils Percent Auto 81.2 % (45.5-73.1); Platelet Count Result 309 k/mm3 (150-375); Red Blood Count 5.47 M/mm3 (4.2-5.4); Red Cell Distribution Width 18.3 % (11.5-14.5); White Blood Count 13.1 K/mm3 (4.5-10.0)
[2024-04-08 06:35] LABS: Alanine Aminotransferase 17 U/L (6-35); Albumin Level 3.5 g/dL (3.5-5.1); Alkaline Phosphatase 160 U/L (38-126); Anion Gap 4 mmol/L (4-12); Aspartate Amino Transferase 36 U/L (14-36); Bilirubin,Total 0.8 mg/dL (0.2-1.3); Blood Urea Nitrogen 76 mg/dL (7-17); Calcium 9.2 mg/dL (8.4-10.2); Carbon Dioxide 28 mmol/L (22-30); Chloride 99 mmol/L (98-107); Estimated CRCL calculation 30 ml/min; Estimated Glomerular Filt Rate 31; Glucose 99 mg/dL (65-110); Potassium 4.8 mmol/L (3.4-5.0); Sodium 131 mmol/L (137-145)
[2024-04-08] MEDS: FLUTICASONE/UMECLIDIN/VILANTER 100-62.5-25 MCG ELLIPTA 1 PUFF INHALATION (07:29)
[2024-04-08 08:00] VITALS: O2SAT 100
[2024-04-08] MEDS: CEFEPIME 1 GM/NS 50 ML 1 GM/50 ML BAG IVPB (08:04)
[2024-04-08] MEDS: AZITHROMYCIN 250 MG TABLET 500 MG PO (08:05)
[2024-04-08] MEDS: APIXABAN 5 MG TABLET PO (08:05)
[2024-04-08] MEDS: GABAPENTIN 300 MG CAPSULE 600 MG PO (08:05)
[2024-04-08] MEDS: BUMETANIDE 1 MG TABLET 2 MG PO (08:05)
[2024-04-08] MEDS: calcitrioL 0.25 MCG CAPSULE PO (08:05)
[2024-04-08] MEDS: allopurinoL 100 MG TABLET 200 MG PO (08:05)
[2024-04-08] MEDS: EMPAGLIFLOZIN 10 MG TABLET PO (08:05)
[2024-04-08] MEDS: LETROZOLE (*CHEMO) 2.5 MG TABLET PO (08:05)
[2024-04-08] MEDS: PANTOPRAZOLE 40 MG TABLET PO (08:05)
[2024-04-08] MEDS: SPIRONOLACTONE 25 MG TABLET 50 MG PO (08:05)
[2024-04-08] MEDS: FERROUS SULFATE 325 MG TABLET DR PO (08:06)
[2024-04-08 08:18] VITALS: O2SAT 98
--- NOTE | 2024-04-08 09:53 | PM.IMPN ---
Progress Note: A&P Assessment and Plan (1) Acute respiratory failure with hypoxia: Code(s): J96.01 - Acute respiratory failure with hypoxia Status: Acute Assessment and Plan: Chronic, baseline oxygen supplementation of 2LNC (2) Pneumonia: Code(s): J18.9 - Pneumonia, unspecified organism Status: Acute Assessment and Plan: CXR: 1. Airspace opacities in left perihilar region, consistent with pneumonia. 2. 7 cm aggressive mass of left fifth rib, consistent with metastatic disease. 3. Cardiomegaly. - started on CAP tx: Azithromycin and cefepime started on 04/05, transitioned to oral azithromycin (complete 04/09) and Augmentin (complete 04/11) - Viral PCR: Flu/COVID/RSV ordered - Chronic supplemental O2 requirement of 2 L NC baseline - supportive treatment - Monitor vital signs, I&Os, neuro status and patient is a fall risk - Follow WBC, serum electrolytes, temperature curves and cultures (3) Metastatic malignant neoplasm to breast: Code(s): C79.81 - Secondary malignant neoplasm of breast Status: Acute Assessment and Plan: Likely metastatic breast cancer. Patient was all initially diagnosed with breast cancer involving the right breast status post lumpectomy almost 4 years ago. She followed up with the oncologist at [facility]. Chest X-ray: 7 cm aggressive mass of left fifth rib, consistent with metastatic disease. CT abdomen/plevis: Stable 7.8 cm left chest wall mass. Trace bilateral pleural effusions. 1.3 cm right adrenal nodule suspicious for metastatic disease. Right lateral abdominal wall edema, correlate for findings of contusion or cellulitis. Osseous metastatic disease. US biopsy ordered, lizandro placed on hold for biopsy Oncology consult. CA 15-3 lab ordered. Bone scan: Widespread osseous metastatic disease. Consider ultrasound-guided core needle biopsy of the large left rib mass. (4) Acute kidney injury superimposed on CKD: Code(s): N17.9 - Acute kidney failure, unspecified; N18.9 - Chronic kidney disease, unspecified Status: Acute Assessment and Plan: Creatinine 1.90>1.50>1.20>1.6 likely related to the resuming of bumex Bumex restarted Monitor labs. (5) Cholelithiases: Code(s): K80.20 - Calculus of gallbladder without cholecystitis without obstruction Status: Acute Assessment and Plan: CT abdomen/pelvis: Cholelithiasis with gallbladder wall hyperemia and mild pericholecystic fluid, correlate with biliary labs and symptoms of upper abdominal pain. Abdomen exam benign. LFTs WNL. Monitor. (6) Fecal impaction: Code(s): K56.41 - Fecal impaction Status: Acute Assessment and Plan: CT abdomen/pelvis: Fecal impaction without findings to suggest stercoral colitis. - Last BM 04/08, denies abdominal pain, nausea/vomiting and is tolerating a diet well (7) Paroxysmal atrial fibrillation: Code(s): I48.0 - Paroxysmal atrial fibrillation Status: Acute Assessment and Plan: - EKG: AFib with left bundle branch block rate 65 with QTc 470. - Continue home medications Eliquis 5 mg PO BID, on hold for biopsy resume 24 hours following biopsy Diltiazem HCL CD 180 mg at bedtime. (8) COPD (chronic obstructive pulmonary disease): Code(s): J44.9 - Chronic obstructive pulmonary disease, unspecified Status: Acute Assessment and Plan: Chronic, does not appear to be in acute exacerbation. - Trelegy 100-62.5-25 mcg 1 puff daily. - Monitor (9) Sleep apnea: Code(s): G47.30 - Sleep apnea, unspecified Status: Acute Assessment and Plan: BIPAP at night (10) Morbid obesity: Code(s): E66.01 - Morbid (severe) obesity due to excess calories Status: Acute Assessment and Plan: Heart healthy diet Time Spent With Patient Time with patient: 25 - 35 minutes Subjective Date/time seen: 04/08/24 09:53 Interval history: 78 year old female with past medical history of chronic respiratory failure 2/2 COPD on 2L NC baseline, CHF, afib on anticoauglation, CKD, HTN, ROSALIE, and history of breast cancer presents to the hospital for altered mental status. Patient is pleasant lying comfortably in bed. Upon assessment patient was found without her oxygen in place and she was noting increased shortness of breath. Replace patient's oxygen and her shortness of breath quickly subsided. A saturation was checked and was within normal limits. Patient has no other complaints denying chest pain, shortness a breath, nausea /vomiting, and abdominal pain. Her Eliquis was placed on hold for plan to have biopsy. Review of Systems Review of Systems: All systems reviewed & are unremarkable except as noted in HPI and below Exam Narrative: AF HR 70 RR 16 SPO2 98 BP 128/60 General: female in no acute respiratory distress who is nontoxic appearing, lying semi recumbent in bed. HEENT: Normocephalic. Atraumatic. Extraocular movement intact. Sclera clear and anicteric. No facial asymmetry. Chest: Lungs are clear to auscultation bilaterally. No wheezes or crackles. Breast: No noted masses or nipple retraction. CV: Heart was regular rate and rhythm. S1-S2. No murmurs, gallops, or rubs. Abd: Abdomen was soft. Nontender. Nondistended. Positive bowel sounds. No organomegaly or masses. Ext: No clubbing, cyanosis, or edema. 2+ DP pulses bilaterally. Neuro: Patient is alert and oriented x3. Cranial nerves 2-12 are intact. Speech is clear. Objective Data Vital Signs Vital Signs: Vital Signs - 24 hr 04/07/24 14:00 04/07/24 21:01 04/07/24 22:04 Temperature 97.2 F L 98.2 F Pulse Rate 71 88 Respiratory Rate 18 20 Blood Pressure 143/93 H Pulse Oximetry 99 100 99 Oxygen Delivery Nasal Cannula Oxygen Flow Rate 3 04/07/24 20:00 04/08/24 05:06 Temperature 98.1 F Pulse Rate 62 Respiratory Rate 18 Blood Pressure 116/60 Pulse Oximetry 98 100 Oxygen Delivery Nasal Cannula Oxygen Flow Rate 3 Intake/Output Intake/Output: Intake & Output 04/05/24 04/06/24 04/07/24 04/08/24 23:59 23:59 23:59 23:59 Intake Total 2550 1080 1810 500 Output Total 075 678 8974 500 Balance 1699 380 -90 0 Meds/Results Medications: Active Medications Generic Name Dose Route Start Last Admin Trade Name Freq PRN Reason Stop Dose Admin Hydrocodone Bitart/Acetaminophen 1 tab 04/05/24 16:07 04/06/24 01:03 Hydrocodone/Acetaminophen (*Crx) 5-325 Mg Tablet PO 1 tab Q6H PRN Administration Pain Rated 4-6 Albuterol 2 puff 04/05/24 08:23 Albuterol Sulfate (*Sp) Aerosol 1 Puff INHALATION QIDRT PRN Shortness Of Breath Allopurinol 200 mg 04/05/24 09:00 04/08/24 08:05 Allopurinol 100 Mg Tablet PO 200 mg DAILY GREG Administration Amoxicillin/Clavulanate Potassium 1 tablet 04/08/24 21:00 Amoxicillin/Clavulanate K 875-125 Mg Tab PO 04/11/24 21:01 Q12HR GREG Apixaban 5 mg 04/05/24 09:00 04/08/24 08:05 Apixaban 5 Mg Tablet PO 5 mg Q12HR GREG Administration Atorvastatin Calcium 10 mg 04/05/24 21:00 04/07/24 20:37 Atorvastatin 10 Mg Tablet PO 10 mg HS GREG Administration Azithromycin 500 mg 04/05/24 09:00 04/08/24 08:05 Azithromycin 250 Mg Tablet PO 04/09/24 09:01 500 mg DAILY GREG Administration Bumetanide 2 mg 04/06/24 10:30 04/08/24 08:05 Bumetanide 1 Mg Tablet PO 2 mg DAILY@0800 GREG Administration Calcitriol 0.25 mcg 04/05/24 09:00 04/08/24 08:05 Calcitriol 0.25 Mcg Capsule PO 0.25 mcg DAILY GREG Administration Diltiazem HCl 180 mg 04/05/24 21:00 04/07/24 20:37 Diltiazem Hcl Cd 180 Mg Cap.24hr PO 180 mg HS GREG Administration Empagliflozin 10 mg 04/05/24 09:00 04/08/24 08:05 Empagliflozin 10 Mg Tablet PO 10 mg DAILY GREG Administration Ergocalciferol 50,000 units 04/11/24 09:00 Ergocalciferol 50,000 Units Capsule PO WEEKLY [facility] Ferrous Sulfate 325 mg 04/05/24 09:00 04/08/24 08:06 Ferrous Sulfate [address] PO 325 mg DAILY GREG Administration Fluticasone Propionate 2 spray 04/05/24 08:23 Fluticasone Propionate 0.05% Na Spr 16 Gm Btl (*Bkc) NASAL PRN PRN Congestion Fluticasone/Umeclidinium/Vilanterol 1 puff 04/05/24 08:00 04/08/24 08:03 Fluticasone/Umeclidin/Vilanter 100-62.5-25 Mcg Ellipta INHALATION [facility] Gabap[facility] 1,200 mg 04/05/24 21:00 04/07/24 20:37 Gabapentin 400 Mg Capsule PO 1,200 mg HS GREG Administration Gabapentin 600 mg 04/05/24 09:00 04/08/24 08:05 Gabapentin 300 Mg Capsule PO 600 mg DAILY GREG Administration Latanoprost 1 drop 04/05/24 21:00 04/07/24 20:38 Latanoprost 0.005% Op Soln 2.5 Ml Btl EACH EYE 1 drop HS GREG Administration Letrozole 2.5 mg 04/05/24 09:00 04/08/24 08:05 Letrozole (*Chemo) 2.5 Mg Tablet PO 2.5 mg DAILY GREG Administration Loratadine 10 mg 04/05/24 21:00 04/07/24 20:37 Loratadine 10 Mg Tablet PO 10 mg HS GREG Administration Pantoprazole Sodium 40 mg 04/05/24 09:00 04/08/24 08:05 Pantoprazole 40 Mg Tablet PO 40 mg QAM GREG Administration Pramipexole Dihydrochloride 0.5 mg 04/05/24 21:00 04/07/24 20:37 Pramipexole 0.5 Mg Tablet PO 0.5 mg HS GREG Administration Prednisone 40 mg 04/05/24 08:00 04/05/24 09:02 Prednisone 20 Mg Tablet PO 40 mg DAILY@0800 GREG Administration Spironolactone 50 mg 04/05/24 09:00 04/08/24 08:05 Spironolactone 25 Mg Tablet PO 50 mg QAM GREG Administration Radiology Results: ITS Impressions Chest X-Ray 04/05/24 05:50 IMPRESSION: 1. Airspace opacities in left perihilar region, consistent with pneumonia. 2. 7 cm aggressive mass of left fifth rib, consistent with metastatic disease. 3. Cardiomegaly. Head CT 04/05/24 06:21 IMPRESSION: 1. Stable moderate nonspecific cerebral white matter disease, which likely represents chronic small vessel ischemic disease. Abdomen/Pelvis CT 04/05/24 22:15 IMPRESSION: Stable 7.8 cm left chest wall mass. Trace bilateral pleural effusions. Mild esophagitis/gastritis. Cholelithiasis with gallbladder wall hyperemia and mild pericholecystic fluid, correlate with biliary labs and symptoms of upper abdominal pain. 1.3 cm right adrenal nodule suspicious for metastatic disease. Fecal impaction without findings to suggest stercoral colitis. Right lateral abdominal wall edema, correlate for findings of contusion or cellulitis. Diffuse osseous metastatic disease. Bone Scan Nuclear Medicine 04/06/24 14:23 IMPRESSION: 1. Widespread osseous metastatic disease. Consider ultrasound-guided core needle biopsy of the large left rib mass. Labs Labs: Laboratory Results - last 24 hr 04/05/24 04/08/24 18:58 06:18 WBC 13.1 H RBC 5.47 H Hgb 15.6 H Hct 50.1 H MCV 91.6 MCH 28.5 MCHC 31.1 L RDW 18.3 H Plt Count 309 MPV 10.0 Immature Gran % (Auto) 0.8 H Neut % (Auto) 81.2 H Lymph % (Auto) 9.3 L [place] % (Auto) 6.4 Eos % (Auto) 1.8 Baso % (Auto) 0.5 Lymph # (Auto) 1.21 [place] # (Auto) 0.8 H Eos # (Auto) 0.2 Baso # (Auto) 0.1 Abs Immat Gran (auto) 0.10 H Absolute Neuts (auto) 10.6 H Absolute Nucleated RBC 0.000 Nucleated RBC % 0.0 Sodium 131 L Potassium 4.8 Chloride 99 Carbon Dioxide 28 Anion Gap 4 BUN 76 H Creatinine 1.60 H Estim Creat Clear Calc 30 Estimated GFR 31 L Glucose 99 Calcium 9.2 Total Bilirubin 0.8 AST 36 ALT 17 Alkaline Phosphatase 160 H Total Protein 7.0 Albumin 3.5 CA 15-3 Antigen 1188 H Quality VTE Prophylaxis VTE prophylaxis: pharmacologic ordered
[2024-04-08 13:59] VITALS: BP 128/60; PULSE 70; RESP 16; TEMP 36.4; O2SAT 98
--- NOTE | 2024-04-08 17:02 | PC.NURSE ---
while cleaning up patient, this rn noticed a protrusion of what I thought stool from the pt anus. This RN wiped anus with washcloth thinking that the so called stool would come with it. It did not move. This RN wiped pt again, and again stool stayed in the same spot with no change to the appearance. I then decided to pull the stool and it came out easily. The object that came out does not seem like just stool. The object looked like a 4.5 X 1/4 inch rope like structure completely covered in stool. It is undiscernable whether if it was only stool considering that it was completely covered. Provider then notified.
[2024-04-08] MEDS: HYDROcodone/acetaminophen (*CRX) 5-325 MG TABLET 1 TAB PO (18:11)
[2024-04-08 20:00] VITALS: O2SAT 98
[2024-04-08] MEDS: dilTIAZem HCL CD 180 MG CAP.24HR PO (20:56)
[2024-04-08] MEDS: GABAPENTIN 400 MG CAPSULE 1200 MG PO (20:56)
[2024-04-08] MEDS: PRAMIPEXOLE 0.5 MG TABLET PO (20:57)
[2024-04-08] MEDS: AMOXICILLIN/CLAVULANATE K 875-125 MG TAB 1 TABLET PO (20:57)
[2024-04-08] MEDS: LORATADINE 10 MG TABLET PO (20:57)
[2024-04-08] MEDS: LATANOPROST 0.005% OP SOLN 2.5 ML BTL 1 DROP EACH EYE (20:57)
[2024-04-08] MEDS: ATORVASTATIN 10 MG TABLET PO (20:57)
[2024-04-08 21:06] VITALS: BP 124/75; PULSE 92; RESP 20; TEMP 36.8; O2SAT 98
[2024-04-08] MEDS: MORPHINE SULFATE (*CRX) 2 MG/ML INJ IV PUSH (22:02)
[2024-04-09] VITALS (7 sets, daily range): BP systolic 104–130; BP diastolic 47–79; PULSE 65–80; RESP 16–20; TEMP 35.5–36.8; O2SAT 91–98
[2024-04-09] MEDS: MORPHINE SULFATE (*CRX) 2 MG/ML INJ IV PUSH (04:24)
[2024-04-09 06:21] LABS: Basophils Absolute Auto 0.1 K/mm3 (0.0-0.1); Basophils Percent Auto 0.5 % (0.2-1.2); Eosinophils Absolute Auto 0.3 K/mm3 (0-0.3); Hematocrit 46.7 % (37.0-47.0); Hemoglobin 14.8 g/dL (12.0-15.0); Immature Granulocyte Absolute 0.09 K/mm3 (0.00-0.031); Immature Granulocyte Percent A 0.7 % (0-0.5); Lymphocytes Absolute Auto 1.27 K/mm3 (0.9-3.2); Lymphocytes Percent Auto 10.2 % (18.3-44.2); Mean Corpuscular HGB Conc 31.7 g/dl (32-36); Mean Corpuscular Hemoglobin 28.8 pg (26-34); Mean Platelet Volume 10.1 fl (7.4-10.4); Monocytes Absolute Auto 0.8 K/mm3 (0.1-0.6); Monocytes Percent Auto 6.7 % (2.6-8.5); Neutrophils Percent Auto 79.9 % (45.5-73.1); Platelet Count Result 292 k/mm3 (150-375); Red Blood Count 5.13 M/mm3 (4.2-5.4); Red Cell Distribution Width 17.4 % (11.5-14.5); White Blood Count 12.5 K/mm3 (4.5-10.0)
[2024-04-09 06:43] LABS: Alanine Aminotransferase 16 U/L (6-35); Albumin Level 3.3 g/dL (3.5-5.1); Alkaline Phosphatase 146 U/L (38-126); Anion Gap 8 mmol/L (4-12); Aspartate Amino Transferase 37 U/L (14-36); Bilirubin,Total 0.8 mg/dL (0.2-1.3); Blood Urea Nitrogen 75 mg/dL (7-17); Calcium 9.2 mg/dL (8.4-10.2); Carbon Dioxide 27 mmol/L (22-30); Chloride 96 mmol/L (98-107); Estimated CRCL calculation 32 ml/min; Estimated Glomerular Filt Rate 34; Glucose 98 mg/dL (65-110); Sodium 131 mmol/L (137-145)
--- NOTE | 2024-04-09 07:36 | P.PNIM_ITS ---
Progress Note: A&P Assessment and Plan (1) Chronic respiratory failure with hypoxia: Code(s): J96.11 - Chronic respiratory failure with hypoxia Status: Acute Assessment and Plan: Chronic, baseline oxygen supplementation of 2LNC (2) Pneumonia: Code(s): J18.9 - Pneumonia, unspecified organism Status: Acute Assessment and Plan: CXR: 1. Airspace opacities in left perihilar region, consistent with pneumonia. 2. 7 cm aggressive mass of left fifth rib, consistent with metastatic disease. 3. Cardiomegaly. - started on CAP tx: Azithromycin and cefepime started on 04/05, transitioned to oral azithromycin (complete 04/09) and Augmentin (complete 04/11) - Viral PCR: Flu/COVID/RSV ordered - Chronic supplemental O2 requirement of 2 L NC baseline - supportive treatment PEP therapy Mucinex - Monitor vital signs, I&Os, neuro status and patient is a fall risk - Follow WBC, serum electrolytes, temperature curves and cultures (3) Metastatic malignant neoplasm to breast: Code(s): C79.81 - Secondary malignant neoplasm of breast Status: Acute Assessment and Plan: Likely metastatic breast cancer. Patient was all initially diagnosed with breast cancer involving the right breast status post lumpectomy almost 4 years ago. She followed up with the oncologist at [facility]. Chest X-ray: 7 cm aggressive mass of left fifth rib, consistent with metastatic disease. CT abdomen/plevis: Stable 7.8 cm left chest wall mass. Trace bilateral pleural effusions. 1.3 cm right adrenal nodule suspicious for metastatic disease. Right lateral abdominal wall edema, correlate for findings of contusion or cellulitis. Osseous metastatic disease. US biopsy ordered, Eliquis placed on hold for biopsy. SCD placed for DVT ppx. Oncology consult. CA 15-3 lab ordered. Bone scan: Widespread osseous metastatic disease. Consider ultrasound-guided core needle biopsy of the large left rib mass. (4) Acute kidney injury superimposed on CKD: Code(s): N17.9 - Acute kidney failure, unspecified; N18.9 - Chronic kidney disease, unspecified Status: Acute Assessment and Plan: Creatinine 1.90>1.50>1.20>1.6>1.5 likely related to the resuming of bumex Bumex restarted Avoid nephrotoxic medications Renally dose medications UOP normal Monitor labs. (5) Cholelithiases: Code(s): K80.20 - Calculus of gallbladder without cholecystitis without obstruction Status: Acute Assessment and Plan: CT abdomen/pelvis: Cholelithiasis with gallbladder wall hyperemia and mild pericholecystic fluid, correlate with biliary labs and symptoms of upper abdominal pain. Abdomen exam benign. LFTs WNL. Monitor. (6) Fecal impaction: Code(s): K56.41 - Fecal impaction Status: Acute Assessment and Plan: CT abdomen/pelvis: Fecal impaction without findings to suggest stercoral colitis. - Last BM 04/08, denies abdominal pain, nausea/vomiting and is tolerating a diet well (7) Paroxysmal atrial fibrillation: Code(s): I48.0 - Paroxysmal atrial fibrillation Status: Acute Assessment and Plan: - EKG: AFib with left bundle branch block rate 65 with QTc 470. - Continue home medications Eliquis 5 mg PO BID, on hold for biopsy resume 24 hours following biopsy. SCD placed for DVT ppx. Diltiazem HCL CD 180 mg at bedtime. (8) COPD (chronic obstructive pulmonary disease): Code(s): J44.9 - Chronic obstructive pulmonary disease, unspecified Status: Acute Assessment and Plan: Chronic, does not appear to be in acute exacerbation. - Trelegy 100-62.5-25 mcg 1 puff daily. - Monitor (9) Sleep apnea: Code(s): G47.30 - Sleep apnea, unspecified Status: Acute Assessment and Plan: * BIPAP at night (10) Morbid obesity: Code(s): E66.01 - Morbid (severe) obesity due to excess calories Status: Acute Assessment and Plan: * Heart healthy diet Time Spent With Patient Time with patient: 25 - 35 minutes Subjective Date/time seen: 04/09/24 07:36 Interval history: 78 year old female with past medical history of chronic respiratory failure 2/2 COPD on 2L NC baseline, CHF, afib on anticoauglation, CKD, HTN, ROSALIE, and history of breast cancer presents to the hospital for altered mental status. Patient is pleasant lying comfortably in bed. she states that she is feeling much better today. Patient continues to endorse a productive cough. Started on PEP therapy and Mucinex. She has no other complaints at this time denying chest pain, shortness a breath, palpitations, nausea/ vomiting, and abdominal pain. Her ultrasound biopsy has been ordered and Eliquis has been placed on hold. SC Ds are ordered for DVT PPX. Review of Systems Review of Systems: All systems reviewed & are unremarkable except as noted in HPI and below Exam Narrative: AF HR 80 RR 16 SPO2 98 3 L NC (Baseline) BP 130/65 General: female in no acute respiratory distress who is nontoxic appearing, lying semi recumbent in bed. HEENT: Normocephalic. Atraumatic. Extraocular movement intact. Sclera clear and anicteric. No facial asymmetry. Chest: Lungs are clear to auscultation bilaterally. No wheezes or crackles. Breast: No noted masses or nipple retraction. CV: Heart was regular rate and rhythm. S1-S2. No murmurs, gallops, or rubs. Abd: Abdomen was soft. Nontender. Nondistended. Positive bowel sounds. No organomegaly or masses. Ext: No clubbing, cyanosis, or edema. 2+ DP pulses bilaterally. Neuro: Patient is alert and oriented x3. Speech is clear. Objective Data Vital Signs Vital Signs: Vital Signs - 24 hr 04/08/24 08:00 04/08/24 13:59 04/08/24 08:18 Temperature 97.6 F Pulse Rate 70 Respiratory Rate 16 Blood Pressure 128/60 Pulse Oximetry 100 98 98 Oxygen Delivery Nasal Cannula Nasal Cannula Oxygen Flow Rate 3.5 3 04/08/24 21:06 04/08/24 20:00 04/09/24 05:40 Temperature 98.2 F 98.2 F Pulse Rate 92 80 Respiratory Rate 20 16 Blood Pressure 124/75 104/59 L Pulse Oximetry 98 98 97 Oxygen Delivery Nasal Cannula Oxygen Flow Rate 3 Intake/Output Intake/Output: Intake & Output 04/06/24 04/07/24 04/08/24 04/09/24 23:59 23:59 23:59 23:59 Intake Total 1080 1810 920 200 Output Total 700 1900 1400 400 Balance 380 90 -480 -200 Meds/Results Medications: Active Medications Generic Name Dose Route Start Last Admin Trade Name Freq PRN Reason Stop Dose Admin Acetaminophen 650 mg 04/08/24 21:34 Acetaminophen 325 Mg Tablet PO Q6H PRN Mild Pain (1-3) or Fever Hydrocodone Bitart/Acetaminophen 1 tab 04/05/24 16:07 04/08/24 18:11 Hydrocodone/Acetaminophen (*Crx) 5-325 Mg Tablet PO 1 tab Q6H PRN Administration Pain Rated 4-6 Albuterol 2 puff 04/05/24 08:23 Albuterol Sulfate (*Sp) Aerosol 1 Puff INHALATION QIDRT PRN Shortness Of Breath Allopurinol 200 mg 04/05/24 09:00 04/08/24 08:05 Allopurinol 100 Mg Tablet PO 200 mg DAILY GREG Administration Amoxicillin/Clavulanate Potassium 1 tablet 04/08/24 21:00 04/08/24 20:57 Amoxicillin/Clavulanate K 875-125 Mg Tab PO 04/11/24 21:01 1 tablet Q12HR GREG Administration Apixaban 5 mg 04/05/24 09:00 04/08/24 08:05 Apixaban 5 Mg Tablet PO 5 mg Q12HR GREG Administration Atorvastatin Calcium 10 mg 04/05/24 21:00 04/08/24 20:57 Atorvastatin 10 Mg Tablet PO 10 mg HS GREG Administration Azithromycin 500 mg 04/05/24 09:00 04/08/24 08:05 Azithromycin 250 Mg Tablet PO 04/09/24 09:01 500 mg DAILY GREG Administration Bumetanide 2 mg 04/06/24 10:30 04/08/24 08:05 Bumetanide 1 Mg Tablet PO 2 mg DAILY@0800 GREG Administration Calcitriol 0.25 mcg 04/05/24 09:00 04/08/24 08:05 Calcitriol 0.25 Mcg Capsule PO 0.25 mcg DAILY GREG Administration Diltiazem HCl 180 mg 04/05/24 21:00 04/08/24 20:56 Diltiazem Hcl Cd 180 Mg Cap.24hr PO 180 mg HS GREG Administration Empagliflozin 10 mg 04/05/24 09:00 04/08/24 08:05 Empagliflozin 10 Mg Tablet PO 10 mg DAILY GREG Administration Ergocalciferol 50,000 units 04/11/24 09:00 Ergocalciferol 50,000 Units Capsule PO WEEKLY GREG Ferrous Sulfate 325 mg 04/05/24 09:00 04/08/24 08:06 Ferrous Sulfate [address] PO 325 mg DAILY GREG Administration Fluticasone Propionate 2 spray 04/05/24 08:23 Fluticasone Propionate 0.05% Na Spr 16 Gm Btl (*Bkc) NASAL PRN PRN Congestion Fluticasone/Umeclidinium/Vilanterol 1 puff 04/05/24 08:00 04/08/24 08:03 Fluticasone/Umeclidin/Vilanter 100-62.5-25 Mcg Ellipta INHALATION Not Given DAILYRT GREG Gabapentin 1,200 mg 04/05/24 21:00 04/08/24 20:56 Gabapentin 400 Mg Capsule PO 1,200 mg HS GREG Administration Gabapentin 600 mg 04/05/24 09:00 04/08/24 08:05 Gabapentin 300 Mg Capsule PO 600 mg DAILY GREG Administration Latanoprost 1 drop 04/05/24 21:00 04/08/24 20:57 Latanoprost 0.005% Op Soln 2.5 Ml Btl EACH EYE 1 drop HS GREG Administration Letrozole 2.5 mg 04/05/24 09:00 04/08/24 08:05 Letrozole (*Chemo) 2.5 Mg Tablet PO 2.5 mg DAILY GREG Administration Loratadine 10 mg 04/05/24 21:00 04/08/24 20:57 Loratadine 10 Mg Tablet PO 10 mg HS GREG Administration Morphine Sulfate 2 mg 04/08/24 21:34 04/09/24 04:24 Morphine Sulfate (*Crx) 2 Mg/Ml Inj IV PUSH 2 mg Q4H PRN Administration Pain Rated 7-10 Pantoprazole Sodium 40 mg 04/05/24 09:00 04/08/24 08:05 Pantoprazole 40 Mg Tablet PO 40 mg QAM GREG Administration Pramipexole Dihydrochloride 0.5 mg 04/05/24 21:00 04/08/24 20:57 Pramipexole 0.5 Mg Tablet PO 0.5 mg HS GREG Administration Prednisone 40 mg 04/05/24 08:00 04/05/24 09:02 Prednisone 20 Mg Tablet PO 40 mg DAILY@0800 GREG Administration Spironolactone 50 mg 04/05/24 09:00 04/08/24 08:05 Spironolactone 25 Mg Tablet PO 50 mg QAM GREG Administration Radiology Results: ITS Impressions Chest X-Ray 04/05/24 05:50 IMPRESSION: 1. Airspace opacities in left perihilar region, consistent with pneumonia. 2. 7 cm aggressive mass of left fifth rib, consistent with metastatic disease. 3. Cardiomegaly. Head CT 04/05/24 06:21 IMPRESSION: 1. Stable moderate nonspecific cerebral white matter disease, which likely represents chronic small vessel ischemic disease. Abdomen/Pelvis CT 04/05/24 22:15 IMPRESSION: Stable 7.8 cm left chest wall mass. Trace bilateral pleural effusions. Mild esophagitis/gastritis. Cholelithiasis with gallbladder wall hyperemia and mild pericholecystic fluid, correlate with biliary labs and symptoms of upper abdominal pain. 1.3 cm right adrenal nodule suspicious for metastatic disease. Fecal impaction without findings to suggest stercoral colitis. Right lateral abdominal wall edema, correlate for findings of contusion or cellulitis. Diffuse osseous metastatic disease. Bone Scan Nuclear Medicine 04/06/24 14:23 IMPRESSION: 1. Widespread osseous metastatic disease. Consider ultrasound-guided core needle biopsy of the large left rib mass. Abdomen X-Ray 04/08/24 18:27 IMPRESSION: NO ACUTE ABDOMINAL FINDINGS. Soft tissue density seen inferior to the right kidney. Ultrasound evaluation advised. Constipation. Labs Labs: Laboratory Results - last 24 hr 04/09/24 05:54 WBC 12.5 H RBC 5.13 Hgb 14.8 Hct 46.7 MCV 91.0 MCH 28.8 MCHC 31.7 L RDW 17.4 H Plt Count 292 MPV 10.1 Immature Gran % (Auto) 0.7 H Neut % (Auto) 79.9 H Lymph % (Auto) 10.2 L [place] % (Auto) 6.7 Eos % (Auto) 2.0 Baso % (Auto) 0.5 Lymph # (Auto) 1.27 [place] # (Auto) 0.8 H Eos # (Auto) 0.3 Baso # (Auto) 0.1 Abs Immat Gran (auto) 0.09 H Absolute Neuts (auto) 10.0 H Absolute Nucleated RBC 0.000 Nucleated RBC % 0.0 Sodium 131 L Potassium 5.0 Chloride 96 L Carbon Dioxide 27 Anion Gap 8 BUN 75 H Creatinine 1.50 H Estim Creat Clear Calc 32 Estimated GFR 34 L Glucose 98 Calcium 9.2 Total Bilirubin 0.8 AST 37 H ALT 16 Alkaline Phosphatase 146 H Total Protein 7.0 Albumin 3.3 L Quality VTE Prophylaxis VTE prophylaxis: mechanical ordered
[2024-04-09] MEDS: FLUTICASONE/UMECLIDIN/VILANTER 100-62.5-25 MCG ELLIPTA 1 PUFF INHALATION (07:48)
[2024-04-09] MEDS: allopurinoL 100 MG TABLET 200 MG PO (09:21)
[2024-04-09] MEDS: EMPAGLIFLOZIN 10 MG TABLET PO (09:25)
[2024-04-09] MEDS: PANTOPRAZOLE 40 MG TABLET PO (09:25)
[2024-04-09] MEDS: LETROZOLE (*CHEMO) 2.5 MG TABLET PO (09:25)
[2024-04-09] MEDS: AMOXICILLIN/CLAVULANATE K 875-125 MG TAB 1 TABLET PO ×2 (09:26→20:22)
[2024-04-09] MEDS: AZITHROMYCIN 250 MG TABLET 500 MG PO (09:26)
[2024-04-09] MEDS: calcitrioL 0.25 MCG CAPSULE PO (09:26)
[2024-04-09] MEDS: GABAPENTIN 300 MG CAPSULE 600 MG PO (09:26)
[2024-04-09] MEDS: FERROUS SULFATE 325 MG TABLET DR PO (09:26)
[2024-04-09] MEDS: SPIRONOLACTONE 25 MG TABLET 50 MG PO (14:10)
[2024-04-09] MEDS: BUMETANIDE 1 MG TABLET 2 MG PO (14:10)
[2024-04-09] MEDS: LATANOPROST 0.005% OP SOLN 2.5 ML BTL 1 DROP EACH EYE (20:22)
[2024-04-09] MEDS: dilTIAZem HCL CD 180 MG CAP.24HR PO (20:22)
[2024-04-09] MEDS: guaiFENesin 12 HR 600 MG TABCR PO (20:22)
[2024-04-09] MEDS: PRAMIPEXOLE 0.5 MG TABLET PO (20:22)
[2024-04-09] MEDS: LORATADINE 10 MG TABLET PO (20:22)
[2024-04-09] MEDS: GABAPENTIN 400 MG CAPSULE 1200 MG PO (20:22)
[2024-04-09] MEDS: ATORVASTATIN 10 MG TABLET PO (20:22)
[2024-04-10] MEDS: MORPHINE SULFATE (*CRX) 2 MG/ML INJ IV PUSH ×2 (05:55→09:28)
[2024-04-10 06:00] VITALS: BP 113/90; PULSE 62; RESP 18; TEMP 36.3; O2SAT 98
[2024-04-10 08:00] VITALS: O2SAT 93
[2024-04-10 08:19] VITALS: PULSE 55; O2SAT 93
[2024-04-10] MEDS: FLUTICASONE/UMECLIDIN/VILANTER 100-62.5-25 MCG ELLIPTA 1 PUFF INHALATION (08:19)
--- NOTE | 2024-04-10 09:04 | P.PNIM_ITS ---
Progress Note: A&P Assessment and Plan (1) Chronic respiratory failure with hypoxia: Code(s): J96.11 - Chronic respiratory failure with hypoxia Status: Acute Assessment and Plan: Chronic, baseline oxygen supplementation of 2LNC (2) Pneumonia: Code(s): J18.9 - Pneumonia, unspecified organism Status: Acute Assessment and Plan: CXR: 1. Airspace opacities in left perihilar region, consistent with pneumonia. 2. 7 cm aggressive mass of left fifth rib, consistent with metastatic disease. 3. Cardiomegaly. - started on CAP tx: Azithromycin and cefepime started on 04/05, transitioned to oral azithromycin (complete 04/09) and Augmentin (complete 04/11) - Viral PCR: Flu/COVID/RSV ordered - Chronic supplemental O2 requirement of 2 L NC baseline - supportive treatment PEP therapy Mucinex - Monitor vital signs, I&Os, neuro status and patient is a fall risk - Follow WBC, serum electrolytes, temperature curves and cultures (3) Metastatic malignant neoplasm to breast: Code(s): C79.81 - Secondary malignant neoplasm of breast Status: Acute Assessment and Plan: Likely metastatic breast cancer. Patient was all initially diagnosed with breast cancer involving the right breast status post lumpectomy almost 4 years ago. She followed up with the oncologist at [facility]. Chest X-ray: 7 cm aggressive mass of left fifth rib, consistent with metastatic disease. CT abdomen/plevis: Stable 7.8 cm left chest wall mass. Trace bilateral pleural effusions. 1.3 cm right adrenal nodule suspicious for metastatic disease. Right lateral abdominal wall edema, correlate for findings of contusion or cellulitis. Osseous metastatic disease. US biopsy ordered, Eliquis placed on hold for biopsy. SCD placed for DVT ppx. Oncology consult. CA 15-3 lab ordered. Bone scan: Widespread osseous metastatic disease. Consider ultrasound-guided core needle biopsy of the large left rib mass. (4) Acute kidney injury superimposed on CKD: Code(s): N17.9 - Acute kidney failure, unspecified; N18.9 - Chronic kidney disease, unspecified Status: Acute Assessment and Plan: Creatinine 1.90>1.50>1.20>1.6>1.5>1.3 Bumex restarted Avoid nephrotoxic medications Renally dose medications UOP normal Monitor labs. (5) Cholelithiases: Code(s): K80.20 - Calculus of gallbladder without cholecystitis without obstruction Status: Acute Assessment and Plan: CT abdomen/pelvis: Cholelithiasis with gallbladder wall hyperemia and mild pericholecystic fluid, correlate with biliary labs and symptoms of upper abdominal pain. Abdomen exam benign. LFTs WNL. Monitor. (6) Fecal impaction: Code(s): K56.41 - Fecal impaction Status: Acute Assessment and Plan: CT abdomen/pelvis: Fecal impaction without findings to suggest stercoral colitis. - Last BM 04/10, denies abdominal pain, nausea/vomiting and is tolerating a diet well (7) Paroxysmal atrial fibrillation: Code(s): I48.0 - Paroxysmal atrial fibrillation Status: Acute Assessment and Plan: - EKG: AFib with left bundle branch block rate 65 with QTc 470. - Continue home medications Eliquis 5 mg PO BID, on hold for biopsy resume 24 hours following biopsy. SCD placed for DVT ppx. Diltiazem HCL CD 180 mg at bedtime. (8) COPD (chronic obstructive pulmonary disease): Code(s): J44.9 - Chronic obstructive pulmonary disease, unspecified Status: Acute Assessment and Plan: Chronic, does not appear to be in acute exacerbation. - Trelegy 100-62.5-25 mcg 1 puff daily. - Monitor (9) Sleep apnea: Code(s): G47.30 - Sleep apnea, unspecified Status: Acute Assessment and Plan: * BIPAP at night (10) Morbid obesity: Code(s): E66.01 - Morbid (severe) obesity due to excess calories Status: Acute Assessment and Plan: * Heart healthy diet Time Spent With Patient Time with patient: 25 - 35 minutes Subjective Date/time seen: 04/10/24 09:04 Interval history: 78 year old female with past medical history of chronic respiratory failure 2/2 COPD on 2L NC baseline, CHF, afib on anticoauglation, CKD, HTN, ROSALIE, and history of breast cancer presents to the hospital for altered mental status. Patient is pleasant lying comfortably in bed. She has no complaints at this time denying chest pain, shortness a breath, nausea / vomiting, and abdominal pain. She is to a biopsy performed on Friday. Review of Systems Review of Systems: All systems reviewed & are unremarkable except as noted in HPI and below Exam Narrative: AF HR 55 RR 18 Spo2 98 BP 113/90 General: female in no acute respiratory distress who is nontoxic appearing, lying semi recumbent in bed. HEENT: Normocephalic. Atraumatic. Extraocular movement intact. Sclera clear and anicteric. No facial asymmetry. Chest: Lungs are clear to auscultation bilaterally. No wheezes or crackles. Breast: No noted masses or nipple retraction. CV: Heart was regular rate and rhythm. S1-S2. No murmurs, gallops, or rubs. Abd: Abdomen was soft. Nontender. Nondistended. Positive bowel sounds. No organomegaly or masses. Ext: No clubbing, cyanosis, or edema. 2+ DP pulses bilaterally. Neuro: Patient is alert and oriented x3. Speech is clear. Objective Data Vital Signs Vital Signs: Vital Signs - 24 hr 04/09/24 11:03 04/09/24 13:54 04/09/24 09:30 Temperature 95.9 F L Pulse Rate 76 Respiratory Rate 16 Blood Pressure 130/65 118/79 Pulse Oximetry 91 96 Oxygen Delivery Nasal Cannula Oxygen Flow Rate 3 Fraction of Inspired Oxygen 04/09/24 21:49 04/09/24 20:00 04/10/24 06:00 Temperature 97.3 F L 97.3 F L Pulse Rate 65 62 Respiratory Rate 20 18 Blood Pressure 130/47 L 113/90 Pulse Oximetry 98 98 98 Oxygen Delivery Nasal Cannula Oxygen Flow Rate 3 Fraction of Inspired Oxygen 04/10/24 08:19 04/10/24 08:19 Temperature Pulse Rate 55 L Respiratory Rate Blood Pressure Pulse Oximetry 93 Oxygen Delivery Nasal Cannula Oxygen Flow Rate 2.5 Fraction of Inspired Oxygen 30 Intake/Output Intake/Output: Intake & Output 04/07/24 04/08/24 04/09/24 04/10/24 23:59 23:59 23:59 23:59 Intake Total 8974 200 6644 480 Output Total 1900 1400 1100 1200 Balance -90 -480 250 -720 Meds/Results Medications: Active Medications Generic Name Dose Route Start Last Admin Trade Name Freq PRN Reason Stop Dose Admin Acetaminophen 650 mg 04/08/24 21:34 Acetaminophen 325 Mg Tablet PO Q6H PRN Mild Pain (1-3) or Fever Hydrocodone Bitart/Acetaminophen 1 tab 04/05/24 16:07 04/08/24 18:11 Hydrocodone/Acetaminophen (*Crx) 5-325 Mg Tablet PO 1 tab Q6H PRN Administration Pain Rated 4-6 Albuterol 2 puff 04/05/24 08:23 Albuterol Sulfate (*Sp) Aerosol 1 Puff INHALATION QIDRT PRN Shortness Of Breath Allopurinol 200 mg 04/05/24 09:00 04/09/24 09:21 Allopurinol 100 Mg Tablet PO 200 mg DAILY GREG Administration Amoxicillin/Clavulanate Potassium 1 tablet 04/08/24 21:00 04/09/24 20:22 Amoxicillin/Clavulanate K 875-125 Mg Tab PO 04/11/24 21:01 1 tablet Q12HR GREG Administration Apixaban 5 mg 04/05/24 09:00 04/08/24 08:05 Apixaban 5 Mg Tablet PO 5 mg Q12HR GREG Administration Atorvastatin Calcium 10 mg 04/05/24 21:00 04/09/24 20:22 Atorvastatin 10 Mg Tablet PO 10 mg HS GREG Administration Bumetanide 2 mg 04/06/24 10:30 04/09/24 14:10 Bumetanide 1 Mg Tablet PO 2 mg DAILY@0800 GREG Administration Calcitriol 0.25 mcg 04/05/24 09:00 04/09/24 09:26 Calcitriol 0.25 Mcg Capsule PO 0.25 mcg DAILY GREG Administration Diltiazem HCl 180 mg 04/05/24 21:00 04/09/24 20:22 Diltiazem Hcl Cd 180 Mg Cap.24hr PO 180 mg HS GREG Administration Empagliflozin 10 mg 04/05/24 09:00 04/09/24 09:25 Empagliflozin 10 Mg Tablet PO 10 mg DAILY GREG Administration Ergocalciferol 50,000 units 04/11/24 09:00 Ergocalciferol 50,000 Units Capsule PO WEEKLY GREG Ferrous Sulfate 325 mg 04/05/24 09:00 04/09/24 09:26 Ferrous Sulfate [address] PO 325 mg DAILY GREG Administration Fluticasone Propionate 2 spray 04/05/24 08:23 Fluticasone Propionate 0.05% Na Spr 16 Gm Btl (*Bkc) NASAL PRN PRN Congestion Fluticasone/Umeclidinium/Vilanterol 1 puff 04/05/24 08:00 04/10/24 08:19 Fluticasone/Umeclidin/Vilanter 100-62.5-25 Mcg Ellipta INHALATION 1 puff DAILYRT GREG Administration Gabapentin 1,200 mg 04/05/24 21:00 04/09/24 20:22 Gabapentin 400 Mg Capsule PO 1,200 mg HS GREG Administration Gabapentin 600 mg 04/05/24 09:00 04/09/24 09:26 Gabapentin 300 Mg Capsule PO 600 mg DAILY GREG Administration Guaifenesin 600 mg 04/09/24 21:00 04/09/24 20:22 Guaifenesin 12 Hr 600 Mg Tabcr PO 600 mg Q12HR GREG Administration Latanoprost 1 drop 04/05/24 21:00 04/09/24 20:22 Latanoprost 0.005% Op Soln 2.5 Ml Btl EACH EYE 1 drop HS GREG Administration Letrozole 2.5 mg 04/05/24 09:00 04/09/24 09:25 Letrozole (*Chemo) 2.5 Mg Tablet PO 2.5 mg DAILY GREG Administration Loratadine 10 mg 04/05/24 21:00 04/09/24 20:22 Loratadine 10 Mg Tablet PO 10 mg HS GREG Administration Morphine Sulfate 2 mg 04/08/24 21:34 04/10/24 05:55 Morphine Sulfate (*Crx) 2 Mg/Ml Inj IV PUSH 2 mg Q4H PRN Administration Pain Rated 7-10 Pantoprazole Sodium 40 mg 04/05/24 09:00 04/09/24 09:25 Pantoprazole 40 Mg Tablet PO 40 mg QAM GREG Administration Pramipexole Dihydrochloride 0.5 mg 04/05/24 21:00 04/09/24 20:22 Pramipexole 0.5 Mg Tablet PO 0.5 mg HS GREG Administration Prednisone 40 mg 04/05/24 08:00 04/05/24 09:02 Prednisone 20 Mg Tablet PO 40 mg DAILY@0800 GREG Administration Spironolactone 50 mg 04/05/24 09:00 04/09/24 14:10 Spironolactone 25 Mg Tablet PO 50 mg QAM RGEG Administration Radiology Results: ITS Impressions Chest X-Ray 04/05/24 05:50 IMPRESSION: 1. Airspace opacities in left perihilar region, consistent with pneumonia. 2. 7 cm aggressive mass of left fifth rib, consistent with metastatic disease. 3. Cardiomegaly. Head CT 04/05/24 06:21 IMPRESSION: 1. Stable moderate nonspecific cerebral white matter disease, which likely represents chronic small vessel ischemic disease. Abdomen/Pelvis CT 04/05/24 22:15 IMPRESSION: Stable 7.8 cm left chest wall mass. Trace bilateral pleural effusions. Mild esophagitis/gastritis. Cholelithiasis with gallbladder wall hyperemia and mild pericholecystic fluid, correlate with biliary labs and symptoms of upper abdominal pain. 1.3 cm right adrenal nodule suspicious for metastatic disease. Fecal impaction without findings to suggest stercoral colitis. Right lateral abdominal wall edema, correlate for findings of contusion or cellulitis. Diffuse osseous metastatic disease. Bone Scan Nuclear Medicine 04/06/24 14:23 IMPRESSION: 1. Widespread osseous metastatic disease. Consider ultrasound-guided core needle biopsy of the large left rib mass. Abdomen X-Ray 04/08/24 18:27 IMPRESSION: NO ACUTE ABDOMINAL FINDINGS. Soft tissue density seen inferior to the right kidney. Ultrasound evaluation advised. Constipation. Quality VTE Prophylaxis VTE prophylaxis: mechanical ordered
[2024-04-10] MEDS: PANTOPRAZOLE 40 MG TABLET PO (09:20)
[2024-04-10] MEDS: EMPAGLIFLOZIN 10 MG TABLET PO (09:20)
[2024-04-10] MEDS: BUMETANIDE 1 MG TABLET 2 MG PO (09:20)
[2024-04-10] MEDS: SPIRONOLACTONE 25 MG TABLET 50 MG PO (09:20)
[2024-04-10] MEDS: LETROZOLE (*CHEMO) 2.5 MG TABLET PO (09:20)
[2024-04-10] MEDS: calcitrioL 0.25 MCG CAPSULE PO (09:20)
[2024-04-10] MEDS: GABAPENTIN 300 MG CAPSULE 600 MG PO (09:20)
[2024-04-10] MEDS: guaiFENesin 12 HR 600 MG TABCR PO ×2 (09:21→20:55)
[2024-04-10] MEDS: allopurinoL 100 MG TABLET 200 MG PO (09:21)
[2024-04-10] MEDS: AMOXICILLIN/CLAVULANATE K 875-125 MG TAB 1 TABLET PO ×2 (09:21→20:55)
[2024-04-10] MEDS: FERROUS SULFATE 325 MG TABLET DR PO (09:21)
[2024-04-10 10:30] LABS: Basophils Absolute Auto 0.1 K/mm3 (0.0-0.1); Basophils Percent Auto 0.4 % (0.2-1.2); Eosinophils Absolute Auto 0.2 K/mm3 (0-0.3); Eosinophils Percent Auto 1.4 % (0-4.4); Hematocrit 51.3 % (37.0-47.0); Hemoglobin 15.6 g/dL (12.0-15.0); Immature Granulocyte Absolute 0.11 K/mm3 (0.00-0.031); Immature Granulocyte Percent A 0.8 % (0-0.5); Lymphocytes Absolute Auto 1.12 K/mm3 (0.9-3.2); Lymphocytes Percent Auto 8.4 % (18.3-44.2); Mean Corpuscular HGB Conc 30.4 g/dl (32-36); Mean Corpuscular Hemoglobin 28.4 pg (26-34); Mean Corpuscular Volume 93.3 fl (80-100); Mean Platelet Volume 10.4 fl (7.4-10.4); Monocytes Absolute Auto 0.7 K/mm3 (0.1-0.6); Monocytes Percent Auto 5.4 % (2.6-8.5); Neutrophils Absolute Auto 11.2 K/mm3 (1.3-6.7); Neutrophils Percent Auto 83.6 % (45.5-73.1); Platelet Count Result 270 k/mm3 (150-375); Red Cell Distribution Width 18.2 % (11.5-14.5); White Blood Count 13.4 K/mm3 (4.5-10.0)
[2024-04-10 10:43] LABS: Alanine Aminotransferase 18 U/L (6-35); Albumin Level 3.6 g/dL (3.5-5.1); Alkaline Phosphatase 145 U/L (38-126); Anion Gap 7 mmol/L (4-12); Aspartate Amino Transferase 53 U/L (14-36); Bilirubin,Total 1.2 mg/dL (0.2-1.3); Blood Urea Nitrogen 72 mg/dL (7-17); Calcium 8.9 mg/dL (8.4-10.2); Carbon Dioxide 28 mmol/L (22-30); Chloride 95 mmol/L (98-107); Estimated CRCL calculation 37 ml/min; Estimated Glomerular Filt Rate 40; Glucose 156 mg/dL (65-110); Potassium 5.7 mmol/L (3.4-5.0); Sodium 130 mmol/L (137-145)
[2024-04-10 14:00] VITALS: BP 119/70; PULSE 66; RESP 18; TEMP 36.2; O2SAT 96
[2024-04-10 20:00] VITALS: O2SAT 96
[2024-04-10] MEDS: LATANOPROST 0.005% OP SOLN 2.5 ML BTL 1 DROP EACH EYE (20:54)
[2024-04-10] MEDS: LORATADINE 10 MG TABLET PO (20:55)
[2024-04-10] MEDS: GABAPENTIN 400 MG CAPSULE 1200 MG PO (20:55)
[2024-04-10] MEDS: dilTIAZem HCL CD 180 MG CAP.24HR PO (20:55)
[2024-04-10] MEDS: PRAMIPEXOLE 0.5 MG TABLET PO (20:55)
[2024-04-10] MEDS: ATORVASTATIN 10 MG TABLET PO (20:55)
[2024-04-10] MEDS: HYDROcodone/acetaminophen (*CRX) 5-325 MG TABLET 1 TAB PO (20:57)
[2024-04-10 21:58] VITALS: BP 125/59; PULSE 70; RESP 14; TEMP 36.1; O2SAT 98
[2024-04-11 06:00] VITALS: BP 118/50; PULSE 51; RESP 14; TEMP 36.3; O2SAT 96
[2024-04-11 06:47] LABS: Basophils Absolute Auto 0.1 K/mm3 (0.0-0.1); Basophils Percent Auto 0.6 % (0.2-1.2); Eosinophils Absolute Auto 0.3 K/mm3 (0-0.3); Eosinophils Percent Auto 1.9 % (0-4.4); Hemoglobin 15.6 g/dL (12.0-15.0); Immature Granulocyte Percent A 0.7 % (0-0.5); Lymphocytes Absolute Auto 1.37 K/mm3 (0.9-3.2); Lymphocytes Percent Auto 9.9 % (18.3-44.2); Mean Corpuscular HGB Conc 31.2 g/dl (32-36); Mean Corpuscular Hemoglobin 28.1 pg (26-34); Mean Corpuscular Volume 89.9 fl (80-100); Mean Platelet Volume 10.4 fl (7.4-10.4); Monocytes Absolute Auto 0.9 K/mm3 (0.1-0.6); Monocytes Percent Auto 6.3 % (2.6-8.5); Neutrophils Absolute Auto 11.2 K/mm3 (1.3-6.7); Neutrophils Percent Auto 80.6 % (45.5-73.1); Platelet Count Result 354 k/mm3 (150-375); Red Blood Count 5.56 M/mm3 (4.2-5.4); Red Cell Distribution Width 17.5 % (11.5-14.5); White Blood Count 13.9 K/mm3 (4.5-10.0)
[2024-04-11 06:53] VITALS: PULSE 60; RESP 18; O2SAT 96
[2024-04-11] MEDS: FLUTICASONE/UMECLIDIN/VILANTER 100-62.5-25 MCG ELLIPTA 1 PUFF INHALATION (06:58)
[2024-04-11 07:01] LABS: Alanine Aminotransferase 16 U/L (6-35); Albumin Level 3.7 g/dL (3.5-5.1); Alkaline Phosphatase 190 U/L (38-126); Anion Gap 7 mmol/L (4-12); Aspartate Amino Transferase 37 U/L (14-36); Blood Urea Nitrogen 69 mg/dL (7-17); Calcium 9.2 mg/dL (8.4-10.2); Carbon Dioxide 29 mmol/L (22-30); Chloride 94 mmol/L (98-107); Estimated CRCL calculation 35 ml/min; Estimated Glomerular Filt Rate 37; Glucose 95 mg/dL (65-110); Potassium 4.8 mmol/L (3.4-5.0); Sodium 130 mmol/L (137-145)
[2024-04-11 08:00] VITALS: PULSE 60; RESP 18; O2SAT 96
[2024-04-11] MEDS: GABAPENTIN 300 MG CAPSULE 600 MG PO (08:36)
[2024-04-11] MEDS: FERROUS SULFATE 325 MG TABLET DR PO (08:36)
[2024-04-11] MEDS: PANTOPRAZOLE 40 MG TABLET PO (08:36)
[2024-04-11] MEDS: BUMETANIDE 1 MG TABLET 2 MG PO (08:37)
[2024-04-11] MEDS: EMPAGLIFLOZIN 10 MG TABLET PO (08:39)
[2024-04-11] MEDS: allopurinoL 100 MG TABLET 200 MG PO (08:40)
[2024-04-11] MEDS: SPIRONOLACTONE 25 MG TABLET 50 MG PO (08:40)
[2024-04-11] MEDS: ERGOCALCIFEROL 50,000 UNITS CAPSULE 50000 UNITS PO (08:40)
[2024-04-11] MEDS: LETROZOLE (*CHEMO) 2.5 MG TABLET PO (08:40)
[2024-04-11] MEDS: AMOXICILLIN/CLAVULANATE K 875-125 MG TAB 1 TABLET PO ×2 (08:40→20:19)
[2024-04-11] MEDS: guaiFENesin 12 HR 600 MG TABCR PO ×2 (08:40→20:18)
[2024-04-11] MEDS: calcitrioL 0.25 MCG CAPSULE PO (08:40)
--- NOTE | 2024-04-11 08:51 | P.PNIM_ITS ---
Progress Note: A&P Assessment and Plan (1) Chronic respiratory failure with hypoxia: Code(s): J96.11 - Chronic respiratory failure with hypoxia Status: Acute Assessment and Plan: Chronic, baseline oxygen supplementation of 2LNC currently on 3- wean if tolerated (2) Pneumonia: Code(s): J18.9 - Pneumonia, unspecified organism Status: Acute Assessment and Plan: CXR: 1. Airspace opacities in left perihilar region, consistent with pneumonia. 2. 7 cm aggressive mass of left fifth rib, consistent with metastatic disease. 3. Cardiomegaly. - started on CAP tx: Azithromycin and cefepime started on 04/05, transitioned to oral azithromycin (complete 04/09) and Augmentin (complete 04/11) - Viral PCR: Flu/COVID/RSV ordered - Chronic supplemental O2 requirement of 2 L NC baseline - supportive treatment PEP therapy Mucinex - Monitor vital signs, I&Os, neuro status and patient is a fall risk - Follow WBC, serum electrolytes, temperature curves and cultures 04/11-completing antibiotics today-Augmentin vs reviewed- stable, afebrile (3) Metastatic malignant neoplasm to breast: Code(s): C79.81 - Secondary malignant neoplasm of breast Status: Acute Assessment and Plan: Likely metastatic breast cancer. Patient was all initially diagnosed with breast cancer involving the right breast status post lumpectomy almost 4 years ago. She followed up with the oncologist at [facility]. Chest X-ray: 7 cm aggressive mass of left fifth rib, consistent with metastatic disease. CT abdomen/plevis: Stable 7.8 cm left chest wall mass. Trace bilateral pleural effusions. 1.3 cm right adrenal nodule suspicious for metastatic disease. Right lateral abdominal wall edema, correlate for findings of contusion or cellulitis. Osseous metastatic disease. US biopsy ordered, Eliquis placed on hold for biopsy. SCD placed for DVT ppx. Oncology consult. CA 15-3 lab ordered. Bone scan: Widespread osseous metastatic disease. Consider ultrasound-guided core needle biopsy of the large left rib mass. 04/11 ultrasound large left rib mass scheduled for friday (4) Acute kidney injury superimposed on CKD: Code(s): N17.9 - Acute kidney failure, unspecified; N18.9 - Chronic kidney disease, unspecified Status: Acute Assessment and Plan: Creatinine 1.90>1.50>1.20>1.6>1.5>1.3 Bumex restarted Avoid nephrotoxic medications Renally dose medications UOP normal Monitor labs. (5) Cholelithiases: Code(s): K80.20 - Calculus of gallbladder without cholecystitis without obstruction Status: Acute Assessment and Plan: CT abdomen/pelvis: Cholelithiasis with gallbladder wall hyperemia and mild pericholecystic fluid, correlate with biliary labs and symptoms of upper abdominal pain. Abdomen exam benign. LFTs WNL. Monitor. (6) Fecal impaction: Code(s): K56.41 - Fecal impaction Status: Acute Assessment and Plan: CT abdomen/pelvis: Fecal impaction without findings to suggest stercoral colitis. - Last BM 04/10, denies abdominal pain, nausea/vomiting and is tolerating a diet well (7) Paroxysmal atrial fibrillation: Code(s): I48.0 - Paroxysmal atrial fibrillation Status: Acute Assessment and Plan: - EKG: AFib with left bundle branch block rate 65 with QTc 470. - Continue home medications Eliquis 5 mg PO BID, on hold for biopsy resume 24 hours following biopsy. SCD placed for DVT ppx. Diltiazem HCL CD 180 mg at bedtime. (8) COPD (chronic obstructive pulmonary disease): Code(s): J44.9 - Chronic obstructive pulmonary disease, unspecified Status: Acute Assessment and Plan: Chronic, does not appear to be in acute exacerbation. - Trelegy 100-62.5-25 mcg 1 puff daily. - Monitor (9) Sleep apnea: Code(s): G47.30 - Sleep apnea, unspecified Status: Acute Assessment and Plan: * BIPAP at night (10) Morbid obesity: Code(s): E66.01 - Morbid (severe) obesity due to excess calories Status: Acute Assessment and Plan: * Heart healthy diet Time Spent With Patient Time with patient: Greater than 35 minutes Subjective Date/time seen: 04/11/24 08:51 Interval history: 78 year old female with past medical history of chronic respiratory failure 2/2 COPD on 2L NC baseline, CHF, afib on anticoauglation, CKD, HTN, ROSALIE, and history of breast cancer presents to the hospital for altered mental status. Pt is seen and examined. She is alert, oriented, pleasant. denies chest pain. still c/o cought. She is to have a biopsy performed on Friday. if stable- anticipate discharge with a close f/u as an outpt. Review of Systems Review of Systems: All systems reviewed & are unremarkable except as noted in HPI and below Exam Narrative: General: female in no acute respiratory distress who is nontoxic appearing HEENT: Normocephalic. Atraumatic. Extraocular movement intact. Sclera clear and anicteric. No facial asymmetry. Chest: Lungs are clear to auscultation bilaterally. No wheezes or crackles. Breast: No noted masses or nipple retraction. CV: Heart was regular rate and rhythm. S1-S2. No murmurs, gallops, or rubs. Abd: Abdomen was soft. Nontender. Nondistended. Positive bowel sounds. No organomegaly or masses. Ext: No clubbing, cyanosis, or edema. 2+ DP pulses bilaterally. Neuro: Patient is alert and oriented x3. Speech is clear. Const: General: comfortable and no acute distress Eyes: Sclera: sclerae normal Pupils: Equal, round and reactive pupils present Neck: Neck: supple Resp: Effort & Inspection: normal respiratory effort Auscultation: diminished lung sounds Cardio: Rhythm: abnormal rhythm irregularly irregular GI: Auscultation: normal bowel sounds Other: Obese Skin: General skin exam: no rashes or lesions noted Neuro: Cranial nerves: Yes Equal, round and reactive pupils present Speech: normal speech Other: A&Ox3. Extrem: General: no pedal edema Psych: Mental Status: mental status grossly normal Affect: normal affect Objective Data Vital Signs Vital Signs: Vital Signs - 24 hr 04/10/24 14:00 04/10/24 20:00 04/10/24 21:58 Temperature 97.1 F L 97.0 F L Pulse Rate 66 70 Respiratory Rate 18 14 Blood Pressure 119/70 125/59 L Pulse Oximetry 96 96 98 Oxygen Delivery Nasal Cannula Oxygen Flow Rate 2.5 04/11/24 06:00 04/11/24 06:53 04/11/24 06:53 Temperature 97.3 F L Pulse Rate 51 L 60 60 Respiratory Rate 14 18 18 Blood Pressure 118/50 L Pulse Oximetry 96 96 Oxygen Delivery Nasal Cannula Oxygen Flow Rate 3 Intake/Output Intake/Output: Intake & Output 04/08/24 04/09/24 04/10/24 04/11/24 23:59 23:59 23:59 23:59 Intake Total 920 1350 1200 200 Output Total 1400 1100 1200 500 Balance -480 250 0 -300 Meds/Results Medications: Active Medications Generic Name Dose Route Start Last Admin Trade Name Freq PRN Reason Stop Dose Admin Acetaminophen 650 mg 04/08/24 21:34 Acetaminophen 325 Mg Tablet PO Q6H PRN Mild Pain (1-3) or Fever Hydrocodone Bitart/Acetaminophen 1 tab 04/05/24 16:07 04/10/24 20:57 Hydrocodone/Acetaminophen (*Crx) 5-325 Mg Tablet PO 1 tab Q6H PRN Administration Pain Rated 4-6 Albuterol 2 puff 04/05/24 08:23 Albuterol Sulfate (*Sp) Aerosol 1 Puff INHALATION QIDRT PRN Shortness Of Breath Allopurinol 200 mg 04/05/24 09:00 04/11/24 08:40 Allopurinol 100 Mg Tablet PO 200 mg DAILY GREG Administration Amoxicillin/Clavulanate Potassium 1 tablet 04/08/24 21:00 04/11/24 08:40 Amoxicillin/Clavulanate K 875-125 Mg Tab PO 04/11/24 21:01 1 tablet Q12HR GREG Administration Apixaban 5 mg 04/05/24 09:00 04/08/24 08:05 Apixaban 5 Mg Tablet PO 5 mg Q12HR GREG Administration Atorvastatin Calcium 10 mg 04/05/24 21:00 04/10/24 20:55 Atorvastatin 10 Mg Tablet PO 10 mg HS GREG Administration Bumetanide 2 mg 04/06/24 10:30 04/11/24 08:37 Bumetanide 1 Mg Tablet PO 2 mg DAILY@0800 GREG Administration Calcitriol 0.25 mcg 04/05/24 09:00 04/11/24 08:40 Calcitriol 0.25 Mcg Capsule PO 0.25 mcg DAILY GREG Administration Diltiazem HCl 180 mg 04/05/24 21:00 04/10/24 20:55 Diltiazem Hcl Cd 180 Mg Cap.24hr PO 180 mg HS GREG Administration Empagliflozin 10 mg 04/05/24 09:00 04/11/24 08:39 Empagliflozin 10 Mg Tablet PO 10 mg DAILY GREG Administration Ergocalciferol 50,000 units 04/11/24 09:00 04/11/24 08:40 Ergocalciferol 50,000 Units Capsule PO 50,000 units WEEKLY GREG Administration Ferrous Sulfate 325 mg 04/05/24 09:00 04/11/24 08:36 Ferrous Sulfate [address] PO 325 mg DAILY GREG Administration Fluticasone Propionate 2 spray 04/05/24 08:23 Fluticasone Propionate 0.05% Na Spr 16 Gm Btl (*Bkc) NASAL PRN PRN Congestion Fluticasone/Umeclidinium/Vilanterol 1 puff 04/05/24 08:00 04/11/24 06:58 Fluticasone/Umeclidin/Vilanter 100-62.5-25 Mcg Ellipta INHALATION 1 puff DAILYRT GREG Administration Gabapentin 1,200 mg 04/05/24 21:00 04/10/24 20:55 Gabapentin 400 Mg Capsule PO 1,200 mg HS GREG Administration Gabapentin 600 mg 04/05/24 09:00 04/11/24 08:36 Gabapentin 300 Mg Capsule PO 600 mg DAILY GREG Administration Guaifenesin 600 mg 04/09/24 21:00 04/11/24 08:40 Guaifenesin 12 Hr 600 Mg Tabcr PO 600 mg Q12HR GREG Administration Latanoprost 1 drop 04/05/24 21:00 04/10/24 20:54 Latanoprost 0.005% Op Soln 2.5 Ml Btl EACH EYE 1 drop HS GREG Administration Letrozole 2.5 mg 04/05/24 09:00 04/11/24 08:40 Letrozole (*Chemo) 2.5 Mg Tablet PO 2.5 mg DAILY GREG Administration Loratadine 10 mg 04/05/24 21:00 04/10/24 20:55 Loratadine 10 Mg Tablet PO 10 mg HS GREG Administration Morphine Sulfate 2 mg 04/08/24 21:34 04/10/24 09:28 Morphine Sulfate (*Crx) 2 Mg/Ml Inj IV PUSH 2 mg Q4H PRN Administration Pain Rated 7-10 Pantoprazole Sodium 40 mg 04/05/24 09:00 04/11/24 08:36 Pantoprazole 40 Mg Tablet PO 40 mg QAM GREG Administration Pramipexole Dihydrochloride 0.5 mg 04/05/24 21:00 04/10/24 20:55 Pramipexole 0.5 Mg Tablet PO 0.5 mg HS GREG Administration Prednisone 40 mg 04/05/24 08:00 04/05/24 09:02 Prednisone 20 Mg Tablet PO 40 mg DAILY@0800 GREG Administration Spironolactone 50 mg 04/05/24 09:00 04/11/24 08:40 Spironolactone 25 Mg Tablet PO 50 mg QAM GREG Administration Radiology Results: ITS Impressions Chest X-Ray 04/05/24 05:50 IMPRESSION: 1. Airspace opacities in left perihilar region, consistent with pneumonia. 2. 7 cm aggressive mass of left fifth rib, consistent with metastatic disease. 3. Cardiomegaly. Head CT 04/05/24 06:21 IMPRESSION: 1. Stable moderate nonspecific cerebral white matter disease, which likely represents chronic small vessel ischemic disease. Abdomen/Pelvis CT 04/05/24 22:15 IMPRESSION: Stable 7.8 cm left chest wall mass. Trace bilateral pleural effusions. Mild esophagitis/gastritis. Cholelithiasis with gallbladder wall hyperemia and mild pericholecystic fluid, correlate with biliary labs and symptoms of upper abdominal pain. 1.3 cm right adrenal nodule suspicious for metastatic disease. Fecal impaction without findings to suggest stercoral colitis. Right lateral abdominal wall edema, correlate for findings of contusion or cellulitis. Diffuse osseous metastatic disease. Bone Scan Nuclear Medicine 04/06/24 14:23 IMPRESSION: 1. Widespread osseous metastatic disease. Consider ultrasound-guided core needle biopsy of the large left rib mass. Abdomen X-Ray 04/08/24 18:27 IMPRESSION: NO ACUTE ABDOMINAL FINDINGS. Soft tissue density seen inferior to the right kidney. Ultrasound evaluation advised. Constipation. Labs Labs: Laboratory Results - last 24 hr 04/10/24 04/11/24 10:20 06:15 WBC 13.4 H 13.9 H RBC 5.50 H 5.56 H Hgb 15.6 H 15.6 H Hct 51.3 H 50.0 H MCV 93.3 89.9 MCH 28.4 28.1 MCHC 30.4 L 31.2 L RDW 18.2 H 17.5 H Plt Count 270 354 MPV 10.4 10.4 Immature Gran % (Auto) 0.8 H 0.7 H Neut % (Auto) 83.6 H 80.6 H Lymph % (Auto) 8.4 L 9.9 L Geary % (Auto) 5.4 6.3 Eos % (Auto) 1.4 1.9 Baso % (Auto) 0.4 0.6 Lymph # (Auto) 1.12 1.37 Geary # (Auto) 0.7 H 0.9 H Eos # (Auto) 0.2 0.3 Baso # (Auto) 0.1 0.1 Abs Immat Gran (auto) 0.11 H 0.10 H Absolute Neuts (auto) 11.2 H 11.2 H Absolute Nucleated RBC 0.000 0.000 Nucleated RBC % 0.0 0.0 Sodium 130 L 130 L Potassium 5.7 H 4.8 Chloride 95 L 94 L Carbon Dioxide 28 29 Anion Gap 7 7 BUN 72 H 69 H Creatinine 1.30 H 1.40 H Estim Creat Clear Calc 37 35 Estimated GFR 40 L 37 L Glucose 156 H 95 Calcium 8.9 9.2 Total Bilirubin 1.2 1.0 AST 53 H 37 H ALT 18 16 Alkaline Phosphatase 145 H 190 H Total Protein 7.0 7.0 Albumin 3.6 3.7 Quality VTE Prophylaxis VTE prophylaxis: mechanical ordered
[2024-04-11 14:00] VITALS: BP 120/91; PULSE 88; RESP 18; TEMP 36; O2SAT 91
[2024-04-11] MEDS: dilTIAZem HCL CD 180 MG CAP.24HR PO (20:18)
[2024-04-11] MEDS: PRAMIPEXOLE 0.5 MG TABLET PO (20:18)
[2024-04-11] MEDS: ATORVASTATIN 10 MG TABLET PO (20:18)
[2024-04-11] MEDS: LORATADINE 10 MG TABLET PO (20:18)
[2024-04-11] MEDS: GABAPENTIN 400 MG CAPSULE 1200 MG PO (20:19)
[2024-04-11] MEDS: LATANOPROST 0.005% OP SOLN 2.5 ML BTL 1 DROP EACH EYE (21:44)
[2024-04-11 21:59] VITALS: BP 115/65; PULSE 120; RESP 20; TEMP 35.9; O2SAT 99
[2024-04-12 05:45] VITALS: BP 154/80; PULSE 56; RESP 18; TEMP 35.8; O2SAT 98
[2024-04-12 07:34] LABS: Basophils Absolute Auto 0.1 K/mm3 (0.0-0.1); Basophils Percent Auto 0.6 % (0.2-1.2); Eosinophils Absolute Auto 0.2 K/mm3 (0-0.3); Eosinophils Percent Auto 1.5 % (0-4.4); Hematocrit 51.7 % (37.0-47.0); Hemoglobin 15.6 g/dL (12.0-15.0); Immature Granulocyte Absolute 0.08 K/mm3 (0.00-0.031); Immature Granulocyte Percent A 0.6 % (0-0.5); Lymphocytes Absolute Auto 1.44 K/mm3 (0.9-3.2); Lymphocytes Percent Auto 10.5 % (18.3-44.2); Mean Corpuscular HGB Conc 30.2 g/dl (32-36); Mean Corpuscular Hemoglobin 28.6 pg (26-34); Mean Corpuscular Volume 94.9 fl (80-100); Mean Platelet Volume 10.3 fl (7.4-10.4); Neutrophils Absolute Auto 10.9 K/mm3 (1.3-6.7); Neutrophils Percent Auto 79.8 % (45.5-73.1); Platelet Count Result 274 k/mm3 (150-375); Red Blood Count 5.45 M/mm3 (4.2-5.4); Red Cell Distribution Width 17.8 % (11.5-14.5); White Blood Count 13.7 K/mm3 (4.5-10.0)
--- NOTE | 2024-04-12 08:44 | P.PNIM_ITS ---
Progress Note: A&P Assessment and Plan (1) Chronic respiratory failure with hypoxia: Code(s): J96.11 - Chronic respiratory failure with hypoxia Status: Acute Assessment and Plan: Chronic, baseline oxygen supplementation of 2LNC currently on 3- wean if tolerated (2) Pneumonia: Code(s): J18.9 - Pneumonia, unspecified organism Status: Acute Assessment and Plan: CXR: 1. Airspace opacities in left perihilar region, consistent with pneumonia. 2. 7 cm aggressive mass of left fifth rib, consistent with metastatic disease. 3. Cardiomegaly. - started on CAP tx: Azithromycin and cefepime started on 04/05, transitioned to oral azithromycin (complete 04/09) and Augmentin (complete 04/11) - Viral PCR: Flu/COVID/RSV ordered - Chronic supplemental O2 requirement of 2 L NC baseline - supportive treatment PEP therapy Mucinex - Monitor vital signs, I&Os, neuro status and patient is a fall risk - Follow WBC, serum electrolytes, temperature curves and cultures (3) Metastatic malignant neoplasm to breast: Code(s): C79.81 - Secondary malignant neoplasm of breast Status: Acute Assessment and Plan: Likely metastatic breast cancer. Patient was all initially diagnosed with breast cancer involving the right breast status post lumpectomy almost 4 years ago. She followed up with the oncologist at [facility]. Chest X-ray: 7 cm aggressive mass of left fifth rib, consistent with metastatic disease. CT abdomen/plevis: Stable 7.8 cm left chest wall mass. Trace bilateral pleural effusions. 1.3 cm right adrenal nodule suspicious for metastatic disease. Right lateral abdominal wall edema, correlate for findings of contusion or cellulitis. Osseous metastatic disease. US biopsy ordered, Eliquis placed on hold for biopsy. SCD placed for DVT ppx. Oncology consult. CA 15-3 lab ordered. Bone scan: Widespread osseous metastatic disease. Consider ultrasound-guided core needle biopsy of the large left rib mass. 04/11 ultrasound large left rib mass scheduled for Friday (4) Acute kidney injury superimposed on CKD: Code(s): N17.9 - Acute kidney failure, unspecified; N18.9 - Chronic kidney disease, unspecified Status: Acute Assessment and Plan: Creatinine 1.90>1.50>1.20>1.6>1.5>1.3 Bumex restarted Avoid nephrotoxic medications Renally dose medications UOP normal Monitor labs. Resolved. (5) Cholelithiases: Code(s): K80.20 - Calculus of gallbladder without cholecystitis without obstruction Status: Acute Assessment and Plan: CT abdomen/pelvis: Cholelithiasis with gallbladder wall hyperemia and mild pericholecystic fluid, correlate with biliary labs and symptoms of upper abdominal pain. Abdomen exam benign. LFTs WNL. Monitor. (6) Fecal impaction: Code(s): K56.41 - Fecal impaction Status: Acute Assessment and Plan: CT abdomen/pelvis: Fecal impaction without findings to suggest stercoral colitis. - Last BM 04/10, denies abdominal pain, nausea/vomiting and is tolerating a diet well (7) Paroxysmal atrial fibrillation: Code(s): I48.0 - Paroxysmal atrial fibrillation Status: Acute Assessment and Plan: - EKG: AFib with left bundle branch block rate 65 with QTc 470. - Continue home medications Eliquis 5 mg PO BID, on hold for biopsy resume 24 hours following biopsy. SCD placed for DVT ppx. Diltiazem HCL CD 180 mg at bedtime. (8) COPD (chronic obstructive pulmonary disease): Code(s): J44.9 - Chronic obstructive pulmonary disease, unspecified Status: Acute Assessment and Plan: Chronic, does not appear to be in acute exacerbation. - Trelegy 100-62.5-25 mcg 1 puff daily. - Monitor (9) Sleep apnea: Code(s): G47.30 - Sleep apnea, unspecified Status: Acute Assessment and Plan: * BIPAP at night (10) Morbid obesity: Code(s): E66.01 - Morbid (severe) obesity due to excess calories Status: Acute Assessment and Plan: * Heart healthy diet Time Spent With Patient Time with patient: 25 - 35 minutes Subjective Date/time seen: 04/12/24 08:44 Interval history: 78 year old female with past medical history of chronic respiratory failure 2/2 COPD on 2L NC baseline, CHF, afib on anticoauglation, CKD, HTN, ROSALIE, and history of breast cancer presents to the hospital for altered mental status. Patient is pleasant lying comfortably in bed. She has no complaints at this time denying chest pain, shortness a breath, nausea / vomiting, and abdominal pain. She remains inpatient status time for biopsy of the left rib mass given the patient is unable to ambulate easily to have this performed outpatient. Review of Systems Review of Systems: All systems reviewed & are unremarkable except as noted in HPI and below Exam Narrative: AF HR 68 RR 18 SPO2 95 2.5LNC BP 154/80 General: female in no acute respiratory distress who is nontoxic appearing, lying semi recumbent in bed. HEENT: Normocephalic. Atraumatic. Extraocular movement intact. Sclera clear and anicteric. No facial asymmetry. Chest: Lungs are clear to auscultation bilaterally. No wheezes or crackles. Breast: No noted masses or nipple retraction. CV: Heart was regular rate and rhythm. S1-S2. No murmurs, gallops, or rubs. Abd: Abdomen was soft. Nontender. Nondistended. Positive bowel sounds. No organomegaly or masses. Ext: No clubbing, cyanosis, or edema. 2+ DP pulses bilaterally. Neuro: Patient is alert and oriented x3. Speech is clear. Objective Data Vital Signs Vital Signs: Vital Signs - 24 hr 04/11/24 14:00 04/11/24 21:59 04/12/24 05:45 Temperature 96.8 F L 96.6 F L 96.4 F L Pulse Rate 88 120 H 56 L Respiratory Rate 18 20 18 Blood Pressure 120/91 H 115/65 154/80 H Pulse Oximetry 91 99 98 Intake/Output Intake/Output: Intake & Output 04/09/24 04/10/24 04/11/24 04/12/24 23:59 23:59 23:59 23:59 Intake Total 1350 1200 680 436 Output Total 1100 1200 1700 550 Balance 250 0 -1020 -114 Meds/Results Medications: Active Medications Generic Name Dose Route Start Last Admin Trade Name Freq PRN Reason Stop Dose Admin Acetaminophen 650 mg 04/08/24 21:34 Acetaminophen 325 Mg Tablet PO Q6H PRN Mild Pain (1-3) or Fever Hydrocodone Bitart/Acetaminophen 1 tab 04/05/24 16:07 04/10/24 20:57 Hydrocodone/Acetaminophen (*Crx) 5-325 Mg Tablet PO 1 tab Q6H PRN Administration Pain Rated 4-6 Albuterol 2 puff 04/05/24 08:23 Albuterol Sulfate (*Sp) Aerosol 1 Puff INHALATION QIDRT PRN Shortness Of Breath Allopurinol 200 mg 04/05/24 09:00 04/11/24 08:40 Allopurinol 100 Mg Tablet PO 200 mg DAILY GREG Administration Apixaban 5 mg 04/05/24 09:00 04/08/24 08:05 Apixaban 5 Mg Tablet PO 5 mg Q12HR GREG Administration Atorvastatin Calcium 10 mg 04/05/24 21:00 04/11/24 20:18 Atorvastatin 10 Mg Tablet PO 10 mg HS GREG Administration Bumetanide 2 mg 04/06/24 10:30 04/11/24 08:37 Bumetanide 1 Mg Tablet PO 2 mg DAILY@0800 GREG Administration Calcitriol 0.25 mcg 04/05/24 09:00 04/11/24 08:40 Calcitriol 0.25 Mcg Capsule PO 0.25 mcg DAILY GREG Administration Diltiazem HCl 180 mg 04/05/24 21:00 04/11/24 20:18 Diltiazem Hcl Cd 180 Mg Cap.24hr PO 180 mg HS GREG Administration Empagliflozin 10 mg 04/05/24 09:00 04/11/24 08:39 Empagliflozin 10 Mg Tablet PO 10 mg DAILY GREG Administration Ergocalciferol 50,000 units 04/11/24 09:00 04/11/24 08:40 Ergocalciferol 50,000 Units Capsule PO 50,000 units WEEKLY GREG Administration Ferrous Sulfate 325 mg 04/05/24 09:00 04/11/24 08:36 Ferrous Sulfate [address] PO 325 mg DAILY GREG Administration Fluticasone Propionate 2 spray 04/05/24 08:23 Fluticasone Propionate 0.05% Na Spr 16 Gm Btl (*Bkc) NASAL PRN PRN Congestion Fluticasone/Umeclidinium/Vilanterol 1 puff 04/05/24 08:00 04/11/24 06:58 Fluticasone/Umeclidin/Vilanter 100-62.5-25 Mcg Ellipta INHALATION 1 puff DAILYRT GREG Administration Gabapentin 1,200 mg 04/05/24 21:00 04/11/24 20:19 Gabapentin 400 Mg Capsule PO 1,200 mg HS GREG Administration Gabapentin 600 mg 04/05/24 09:00 04/11/24 08:36 Gabapentin 300 Mg Capsule PO 600 mg DAILY GREG Administration Guaifenesin 600 mg 04/09/24 21:00 04/11/24 20:18 Guaifenesin 12 Hr 600 Mg Tabcr PO 600 mg Q12HR GREG Administration Latanoprost 1 drop 04/05/24 21:00 04/11/24 21:44 Latanoprost 0.005% Op Soln 2.5 Ml Btl EACH EYE 1 drop HS GREG Administration Letrozole 2.5 mg 04/05/24 09:00 04/11/24 08:40 Letrozole (*Chemo) 2.5 Mg Tablet PO 2.5 mg DAILY GREG Administration Loratadine 10 mg 04/05/24 21:00 04/11/24 20:18 Loratadine 10 Mg Tablet PO 10 mg HS GREG Administration Morphine Sulfate 2 mg 04/08/24 21:34 04/10/24 09:28 Morphine Sulfate (*Crx) 2 Mg/Ml Inj IV PUSH 2 mg Q4H PRN Administration Pain Rated 7-10 Pantoprazole Sodium 40 mg 04/05/24 09:00 04/11/24 08:36 Pantoprazole 40 Mg Tablet PO 40 mg QAM GREG Administration Pramipexole Dihydrochloride 0.5 mg 04/05/24 21:00 04/11/24 20:18 Pramipexole 0.5 Mg Tablet PO 0.5 mg HS GREG Administration Prednisone 40 mg 04/05/24 08:00 04/05/24 09:02 Prednisone 20 Mg Tablet PO 40 mg DAILY@0800 GREG Administration Spironolactone 50 mg 04/05/24 09:00 04/11/24 08:40 Spironolactone 25 Mg Tablet PO 50 mg QAM GREG Administration Radiology Results: ITS Impressions Chest X-Ray 04/05/24 05:50 IMPRESSION: 1. Airspace opacities in left perihilar region, consistent with pneumonia. 2. 7 cm aggressive mass of left fifth rib, consistent with metastatic disease. 3. Cardiomegaly. Head CT 04/05/24 06:21 IMPRESSION: 1. Stable moderate nonspecific cerebral white matter disease, which likely represents chronic small vessel ischemic disease. Abdomen/Pelvis CT 04/05/24 22:15 IMPRESSION: Stable 7.8 cm left chest wall mass. Trace bilateral pleural effusions. Mild esophagitis/gastritis. Cholelithiasis with gallbladder wall hyperemia and mild pericholecystic fluid, correlate with biliary labs and symptoms of upper abdominal pain. 1.3 cm right adrenal nodule suspicious for metastatic disease. Fecal impaction without findings to suggest stercoral colitis. Right lateral abdominal wall edema, correlate for findings of contusion or cellulitis. Diffuse osseous metastatic disease. Bone Scan Nuclear Medicine 04/06/24 14:23 IMPRESSION: 1. Widespread osseous metastatic disease. Consider ultrasound-guided core needle biopsy of the large left rib mass. Abdomen X-Ray 04/08/24 18:27 IMPRESSION: NO ACUTE ABDOMINAL FINDINGS. Soft tissue density seen inferior to the right kidney. Ultrasound evaluation advised. Constipation. Labs Labs: Laboratory Results - last 24 hr 04/12/24 07:15 WBC 13.7 H RBC 5.45 H Hgb 15.6 H Hct 51.7 H MCV 94.9 D MCH 28.6 MCHC 30.2 L RDW 17.8 H Plt Count 274 MPV 10.3 Immature Gran % (Auto) 0.6 H Neut % (Auto) 79.8 H Lymph % (Auto) 10.5 L [place] % (Auto) 7.0 Eos % (Auto) 1.5 Baso % (Auto) 0.6 Lymph # (Auto) 1.44 [place] # (Auto) 1.0 H Eos # (Auto) 0.2 Baso # (Auto) 0.1 Abs Immat Gran (auto) 0.08 H Absolute Neuts (auto) 10.9 H Absolute Nucleated RBC 0.000 Nucleated RBC % 0.0 Quality VTE Prophylaxis VTE prophylaxis: mechanical ordered
[2024-04-12] MEDS: ACETAMINOPHEN 325 MG TABLET 650 MG PO (08:53)
[2024-04-12 08:55] VITALS: O2SAT 98
[2024-04-12] MEDS: SPIRONOLACTONE 25 MG TABLET 50 MG PO (08:55)
[2024-04-12] MEDS: FERROUS SULFATE 325 MG TABLET DR PO (08:55)
[2024-04-12] MEDS: GABAPENTIN 300 MG CAPSULE 600 MG PO (08:55)
[2024-04-12] MEDS: allopurinoL 100 MG TABLET 200 MG PO (08:55)
[2024-04-12] MEDS: PANTOPRAZOLE 40 MG TABLET PO (08:56)
[2024-04-12] MEDS: EMPAGLIFLOZIN 10 MG TABLET PO (08:56)
[2024-04-12] MEDS: calcitrioL 0.25 MCG CAPSULE PO (08:56)
[2024-04-12] MEDS: guaiFENesin 12 HR 600 MG TABCR PO ×2 (08:56→20:40)
[2024-04-12] MEDS: LETROZOLE (*CHEMO) 2.5 MG TABLET PO (08:56)
[2024-04-12] MEDS: BUMETANIDE 1 MG TABLET 2 MG PO (08:56)
[2024-04-12] MEDS: FLUTICASONE/UMECLIDIN/VILANTER 100-62.5-25 MCG ELLIPTA 1 PUFF INHALATION (09:39)
[2024-04-12 09:42] VITALS: PULSE 68; RESP 18; O2SAT 95
[2024-04-12 09:52] LABS: Alanine Aminotransferase 17 U/L (6-35); Albumin Level 3.7 g/dL (3.5-5.1); Alkaline Phosphatase 184 U/L (38-126); Anion Gap 3 mmol/L (4-12); Aspartate Amino Transferase 39 U/L (14-36); Bilirubin,Total 1.1 mg/dL (0.2-1.3); Blood Urea Nitrogen 68 mg/dL (7-17); Calcium 9.1 mg/dL (8.4-10.2); Carbon Dioxide 35 mmol/L (22-30); Chloride 92 mmol/L (98-107); Estimated CRCL calculation 37 ml/min; Estimated Glomerular Filt Rate 40; Glucose 113 mg/dL (65-110); Potassium 4.7 mmol/L (3.4-5.0); Sodium 130 mmol/L (137-145)
--- NOTE | 2024-04-12 10:47 | PCNWS ---
Weekly nutritional screen. Patient is tolerating current heart healthy diet with adequate intake 100% of meals. No weight loss reported. No nutritional recommendations at this time.
[2024-04-12 14:00] VITALS: BP 120/56; PULSE 66; RESP 18; TEMP 35.9; O2SAT 99
[2024-04-12 20:00] VITALS: O2SAT 98
[2024-04-12] MEDS: ATORVASTATIN 10 MG TABLET PO (20:40)
[2024-04-12] MEDS: GABAPENTIN 400 MG CAPSULE 1200 MG PO (20:40)
[2024-04-12] MEDS: LORATADINE 10 MG TABLET PO (20:40)
[2024-04-12] MEDS: PRAMIPEXOLE 0.5 MG TABLET PO (20:40)
[2024-04-12] MEDS: dilTIAZem HCL CD 180 MG CAP.24HR PO (20:41)
[2024-04-12 21:42] VITALS: BP 118/57; PULSE 83; RESP 18; TEMP 36.3; O2SAT 98
[2024-04-12] MEDS: LATANOPROST 0.005% OP SOLN 2.5 ML BTL 1 DROP EACH EYE (21:59)
[2024-04-13 05:18] VITALS: BP 116/57; PULSE 82; RESP 18; TEMP 36.2; O2SAT 99
[2024-04-13 06:48] LABS: Basophils Absolute Auto 0.1 K/mm3 (0.0-0.1); Basophils Percent Auto 0.7 % (0.2-1.2); Eosinophils Absolute Auto 0.2 K/mm3 (0-0.3); Eosinophils Percent Auto 1.5 % (0-4.4); Hematocrit 48.3 % (37.0-47.0); Immature Granulocyte Absolute 0.07 K/mm3 (0.00-0.031); Immature Granulocyte Percent A 0.5 % (0-0.5); Lymphocytes Absolute Auto 1.35 K/mm3 (0.9-3.2); Lymphocytes Percent Auto 10.4 % (18.3-44.2); Mean Corpuscular HGB Conc 31.1 g/dl (32-36); Mean Corpuscular Hemoglobin 28.2 pg (26-34); Mean Corpuscular Volume 90.8 fl (80-100); Mean Platelet Volume 10.5 fl (7.4-10.4); Monocytes Percent Auto 7.3 % (2.6-8.5); Neutrophils Absolute Auto 10.3 K/mm3 (1.3-6.7); Neutrophils Percent Auto 79.6 % (45.5-73.1); Platelet Count Result 341 k/mm3 (150-375); Red Blood Count 5.32 M/mm3 (4.2-5.4); Red Cell Distribution Width 17.5 % (11.5-14.5)
[2024-04-13 07:21] LABS: Alanine Aminotransferase 14 U/L (6-35); Albumin Level 3.1 g/dL (3.5-5.1); Alkaline Phosphatase 178 U/L (38-126); Anion Gap 8 mmol/L (4-12); Aspartate Amino Transferase 45 U/L (14-36); Blood Urea Nitrogen 70 mg/dL (7-17); Calcium 9.1 mg/dL (8.4-10.2); Carbon Dioxide 25 mmol/L (22-30); Chloride 95 mmol/L (98-107); Estimated CRCL calculation 35 ml/min; Estimated Glomerular Filt Rate 37; Glucose 108 mg/dL (65-110); Potassium 5.3 mmol/L (3.4-5.0); Sodium 128 mmol/L (137-145)
[2024-04-13 08:45] VITALS: O2SAT 96
[2024-04-13] MEDS: guaiFENesin 12 HR 600 MG TABCR PO (08:48)
[2024-04-13] MEDS: EMPAGLIFLOZIN 10 MG TABLET PO (08:48)
[2024-04-13] MEDS: PANTOPRAZOLE 40 MG TABLET PO (08:48)
[2024-04-13] MEDS: allopurinoL 100 MG TABLET 200 MG PO (08:48)
[2024-04-13] MEDS: SPIRONOLACTONE 25 MG TABLET 50 MG PO (08:48)
[2024-04-13] MEDS: FERROUS SULFATE 325 MG TABLET DR PO (08:48)
[2024-04-13] MEDS: LETROZOLE (*CHEMO) 2.5 MG TABLET PO (08:48)
[2024-04-13] MEDS: calcitrioL 0.25 MCG CAPSULE PO (08:48)
[2024-04-13] MEDS: GABAPENTIN 300 MG CAPSULE 600 MG PO (08:48)
[2024-04-13] MEDS: BUMETANIDE 1 MG TABLET 2 MG PO (08:48)
[2024-04-13] MEDS: FLUTICASONE/UMECLIDIN/VILANTER 100-62.5-25 MCG ELLIPTA 1 PUFF INHALATION (09:17)
[2024-04-13 09:19] VITALS: O2SAT 95
[2024-04-13 14:00] VITALS: BP 111/55; PULSE 58; RESP 18; TEMP 36.1; O2SAT 95
--- NOTE | 2024-04-13 16:03 | P.DS_ITS ---
DS: Admitting Diagnosis Discharge Date 04/13/2024 Admitting Diagnosis Chronic respiratory failure with hypoxia community-acquired pneumonia metastatic malignant neoplasm to the breast acute kidney injury superimposed on chronic kidney disease cholelithiasis fecal impaction COPD sleep apnea morbid obesity DS: Discharge Diagnosis Discharge Diagnosis (1) Chronic respiratory failure with hypoxia: Code(s): J96.11 - Chronic respiratory failure with hypoxia Status: Acute (2) Pneumonia: Code(s): J18.9 - Pneumonia, unspecified organism Status: Acute (3) Metastatic malignant neoplasm to breast: Code(s): C79.81 - Secondary malignant neoplasm of breast Status: Acute (4) Acute kidney injury superimposed on CKD: Code(s): N17.9 - Acute kidney failure, unspecified; N18.9 - Chronic kidney disease, unspecified Status: Acute (5) Cholelithiases: Code(s): K80.20 - Calculus of gallbladder without cholecystitis without obstruction Status: Acute (6) Fecal impaction: Code(s): K56.41 - Fecal impaction Status: Acute (7) Paroxysmal atrial fibrillation: Code(s): I48.0 - Paroxysmal atrial fibrillation Status: Acute (8) COPD (chronic obstructive pulmonary disease): Code(s): J44.9 - Chronic obstructive pulmonary disease, unspecified Status: Acute (9) Sleep apnea: Code(s): G47.30 - Sleep apnea, unspecified Status: Acute (10) Morbid obesity: Code(s): E66.01 - Morbid (severe) obesity due to excess calories Status: Acute DS: Summary Hospital Course Reason for hospitalization: Chronic respiratory failure with hypoxia community-acquired pneumonia metastatic malignant neoplasm to the breast acute kidney injury superimposed on chronic kidney disease cholelithiasis fecal impaction COPD sleep apnea morbid obesity Hospital Course: 78 year old female with past medical history of chronic respiratory failure 2/2 COPD on 2L NC baseline, CHF, afib on anticoauglation, CKD, HTN, ROSALIE, and history of breast cancer presents to the hospital for altered mental status. Not meeting sepsis criteria on admission. Slight TROY which resolved during admission. Head CT unremarkable. Chest XR obtained showed Airspace opacities in left perihilar region, consistent with pneumonia, 7 cm aggressive mass of left fifth rib, consistent with metastatic disease, and Cardiomegaly. Remained on her baseline oxygen supplementation. Started on IV antibiotics, transitioned to orals and completed her course during her admission. The mass seen on xr is li jen metastatic breast cancer. Patient was all initially diagnosed with breast cancer involving the right breast status post lumpectomy almost 4 years ago. She followed up with the oncologist at [facility]. Oncology consulted. Bone scan ordered adn showed Widespread osseous metastatic disease. Bone biopsy ordered. Patient eliquis placed on hold, SCD used for DVT ppx. Biopsy performed on 04/12. Eliquis resumed at time of discharge on 04/13. Patient to follow up with Dr. Lugo in the outpatient setting. Patient had an abdomen/pelvis CT obtained which showed incidental findings of cholelithiasis, no intervention required. She also had a fecal impaction which resolved during admission. At time of dishcarge patient stated that she was feeling much better. She had no complaints denying chest pain, shortness of breath, cough, nausea/vomiting and abdominal pain. Altered mental status resolved and patient was AOx3. patient discharged back to her facility in stable condition. She is to follow up with her primary care provider in 1 week call for an appointment with Dr Lugo office for pathology follow-up. Status at Discharge Functional status at discharge: bed bound Time Spent with Patient Time attestation: Total time spent providing and/or coordinating discharge services: Time spent: Greater than 30 minutes Exam Narrative: AF HR 58 RR 18 SPO2 95 2.5L (baseline) BP 111/55 General: female in no acute respiratory distress who is nontoxic appearing, lying semi recumbent in bed. HEENT: Normocephalic. Atraumatic. Extraocular movement intact. Sclera clear and anicteric. No facial asymmetry. Chest: Lungs are clear to auscultation bilaterally. No wheezes or crackles. Breast: No noted masses or nipple retraction. CV: Heart was regular rate and rhythm. S1-S2. No murmurs, gallops, or rubs. Abd: Abdomen was soft. Nontender. Nondistended. Positive bowel sounds. No organomegaly or masses. Ext: No clubbing, cyanosis, or edema. 2+ DP pulses bilaterally. Neuro: Patient is alert and oriented x3. Speech is clear. DS: Data Data Completed and Pending Completed studies during hospitalization: bone biopsy abdomen x-ray bone scan nuclear medicine chest x-ray head CT abdomen pelvis CT Pending studies at discharge: Pending at discharge 04/13/24 08:40 Surgical [PTH] Routine Labs on day of discharge: Labs from last 24 hours 04/13/24 04/13/24 06:30 06:29 WBC 13.0 H RBC 5.32 Hgb 15.0 Hct 48.3 H MCV 90.8 MCH 28.2 MCHC 31.1 L RDW 17.5 H Plt Count 341 MPV 10.5 H Immature Gran % (Auto) 0.5 Neut % (Auto) 79.6 H Lymph % (Auto) 10.4 L [place] % (Auto) 7.3 Eos % (Auto) 1.5 Baso % (Auto) 0.7 Lymph # (Auto) 1.35 [place] # (Auto) 1.0 H Eos # (Auto) 0.2 Baso # (Auto) 0.1 Abs Immat Gran (auto) 0.07 H Absolute Neuts (auto) 10.3 H Absolute Nucleated RBC 0.000 Nucleated RBC % 0.0 Sodium 128 L Potassium 5.3 H Chloride 95 L Carbon Dioxide 25 Anion Gap 8 BUN 70 H Creatinine 1.40 H Estim Creat Clear Calc 35 Estimated GFR 37 L Glucose 108 Calcium 9.1 Total Bilirubin 1.0 AST 45 H ALT 14 Alkaline Phosphatase 178 H Total Protein 6.0 L Albumin 3.1 L Discharge Plan Discharge Attending physician on discharge: Jayce Haynes Consulting providers: Diomedes Lugo; Beverley Miller Discharging Clinician: Beverley Miller Anticipated Discharge Date/Time: 04/13/24 14:12 Patient Disposition: NH Retirement/Asst Living Activity: as tolerated Diet: as tolerated, heart healthy and diabetic Discharge Instructions: Discharge disposition: Patient was diagnosed with pneumonia during admission Antibiotics completed during admission Continue chronic oxygen supplementation Monitor blood pressures Take caution while standing, rising, or moving Change positions slowly taking a break between each position change If you standing feel dizzy sat back down and take a break Concern for metastatic breast cancer Oncology consulted Biopsy performed on 04/12, pathology pending Follow up with oncology in 1 week, office information provided Patient was having elevated potassium levels during admission Supplementation placed on hold Follow up with primary care provider about resuming this medication Encouraged to continue with yearly vaccinations Return to the emergency department if he developed sudden shortness of breath, chest pain, nausea, vomiting, upset stomach or intractable diarrhea Return to the emergency department if you develop fever greater than 101.5 Follow-up with the primary care physician within 1 weeks Thank you for [facility] for your healthcare needs Patient Instructions: Apixaban (By mouth), Heart Failure (DC), Pain Management (DC), Community Acquired Pneumonia (DC), Bone Biopsy (DC) Patient Language: [place] Stand Alone Forms: General Discharge Information Follow-up/Referrals: Diomedes Lugo MD [Physician] - 1 Week UNKNOWN,DOCTOR [Primary Care Provider] - 1 Week Discharge Medications: Continued diltiazem HCl [Cardizem CD] 180 mg Capsule,Extended Release 24hr 180 mg PO HS Rx Instructions: ADMINISTER IN THE EVENING fluticasone propionate 50 mcg/actuation [place],Suspension 2 spray INTRANASAL PRN PRN (Reason: Congestion) Rx Instructions: SPRAY 2 SPRAYS IN EACH NOSTRIL ONCE DAILY calcitriol 0.25 mcg Capsule 0.25 mcg PO DAILY hydrocodone-acetaminophen 5-325 mg Tablet 1 tablet PO Q6H PRN (Reason: Pain) hydroxyzine pamoate 50 mg Capsule 50 mg PO Q6-8H PRN (Reason: Itching) letrozole 2.5 mg Tablet 2.5 mg PO DAILY albuterol sulfate [Proventil HFA] 90 mcg/actuation Hfa Aerosol Inhaler 2 puff inhalation QIDRT PRN (Reason: Shortness Of Breath) Qty: 6.7 1RF atorvastatin 10 mg tablet 10 mg PO HS allopurinol 100 mg tablet 200 mg PO DAILY ergocalciferol (vitamin D2) [Vitamin D2] 1,250 mcg (50,000 unit) capsule 1,250 mcg PO WEEKLY Rx Instructions: Patient takes on sundays. Trelegy Ellipta 100-62.5-25 mcg blister with device 1 inh INHALATION DAILY Eliquis 5 mg Tablet 5 mg PO Q12HR Qty: 60 1RF pantoprazole 40 mg Tablet,Delayed Release (Dr/Ec) 40 mg PO QAM Qty: 30 1RF prednisone 20 mg Tablet 40 mg PO DAILY@0800 3 Days Qty: 6 0RF latanoprost 0.005 % drops 1 drp EACH EYE HS gabapentin 600 mg Tablet 600 mg PO DAILY gabapentin 600 mg Tablet 1,200 mg PO HS spironolactone 25 mg Tablet 50 mg PO QAM Qty: 30 0RF bumetanide 1 mg Tablet 2 mg PO DAILY@0800 Qty: 30 0RF Jardiance 10 mg Tablet 10 mg PO DAILY Qty: 30 0RF ferrous sulfate 325 mg PO DAILY 30 Days Qty: 0 0RF cetirizine 10 mg tablet 10 mg PO HS pramipexole 0.5 mg Tablet 0.5 mg PO HS Held potassium chloride 20 mEq tablet,ER particles/crystals 20 meq PO DAILY Hold Instructions: Resume on 05/18/24. Hold until follow up with PCP. Date of admission: 04/05/24 04:29 Primary Care Provider: UNKNOWN,DOCTOR Admitting Provider: Abraham Storey V. Attending physician on admission: Abraham Storey V. Condition: Stable Hospitalist MIPS Heart Failure (Exclusion) Patient has history of Heart Transplant or Left Ventricular Assistive Device?: No IF YES, STOP HERE Heart Failure (Qualifier) Patient has current or prior documentation of LVEF less than or equal to 40%, or mod/servere depressed LVSF?: No IF NO, STOP HERE
== END 2024-04-13 19:10 | DRG 167 ==
LOC: ANHED 04-05 04:40 → ANH3MEDSUR 04-05 04:56
PROVIDERS: Internal Medicine Hematology & Oncology; Nurse Practitioner Family; Admitting Provider Internal Medicine; Emergency Provider Student in an Organized Health Care Education/Training Program; Visit Provider Student in an Organized Health Care Education/Training Program
DX: J18.9 Pneumonia, unspecified organism (principal); C79.51 Secondary malignant neoplasm of bone; J44.0 Chronic obstructive pulmonary disease with (acute) lower respiratory infection; J96.11 Chronic respiratory failure with hypoxia; N17.9 Acute kidney failure, unspecified; C79.89 Secondary malignant neoplasm of other specified sites; I13.0 Hypertensive heart and chronic kidney disease with heart failure and stage 1 through stage 4 chronic kidney disease, or unspecified chronic kidney disease; C50.911 Malignant neoplasm of unspecified site of right female breast; D50.9 Iron deficiency anemia, unspecified; E66.01 Morbid (severe) obesity due to excess calories; G47.33 Obstructive sleep apnea (adult) (pediatric); I50.9 Heart failure, unspecified; I48.0 Paroxysmal atrial fibrillation; K80.20 Calculus of gallbladder without cholecystitis without obstruction; K56.41 Fecal impaction; K22.70 Barrett's esophagus without dysplasia; N18.9 Chronic kidney disease, unspecified; Z74.01 Bed confinement status; Z92.21 Personal history of antineoplastic chemotherapy; Z79.01 Long term (current) use of anticoagulants; Z79.84 Long term (current) use of oral hypoglycemic drugs; Z99.81 Dependence on supplemental oxygen
CPT/HCPCS: 20220; 36415; 70450; 71045; 74018; 74177; 76942; 78306; 80053; 81001; 83605; 85025; 85610; 85730; 86300; 87040; 87641; 88307; 88311; 88342; 93005; 94640; 94667; 96365; 96366; 96367; 99285; A9270; A9503; J0692; J2270; J3370; J7030; J7512; Q9967

== ENCOUNTER 2024-05-03 13:19 | Outpatient (CLI) | payer MEDICARE, SELFPAY ==
--- NOTE | ~2024-05-03 | US_ITS ---
RIGHT UPPER EXTREMITY VENOUS ULTRASOUND Ordering provider: Mateo Newsome MD History: . Swelling of right upper extremity . Comparison: None. FINDINGS: --JUGULAR: Patent and free of thrombus. Normal compressibility, phasic flow and augmentation. --SUBCLAVIAN: Patent and free of thrombus. Normal compressibility, phasic flow and augmentation. --AXILLARY: Patent and free of thrombus. Normal compressibility, phasic flow and augmentation. --BRACHIAL: Not well seen. --CEPHALIC: Patent and free of thrombus. Normal compressibility, phasic flow and augmentation. --BASILIC: Not well seen. --RADIAL: Patent and free of thrombus. Normal compressibility, phasic flow and augmentation. --ULNAR: Patent and free of thrombus. Normal compressibility, phasic flow and augmentation. IMPRESSION: BRACHIAL AND BASILIC VEINS ARE NOT WELL SEEN. No deep vein thrombosis. Reviewed, dictated and finalized at location A. [facility]LE[facility]
== END 2024-05-03 13:20 | disposition home or self-care (01) ==
PROVIDERS: PCP Internal Medicine; Visit Provider Internal Medicine Medical Oncology
DX: M79.89 Other specified soft tissue disorders (principal)
CPT/HCPCS: 93971